=== PATIENT | male | born 1935 | race Caucasian/White ===

== ENCOUNTER → 2017-05-23 | Outpatient (CLI) | payer MEDICARE, OTHER ==
[~2017-05-23] MED LIST: ALLO100T PO; ALLP100T PO; ASP81CT PO; ASPI-983 PO; CLOP75TA28 PO; CLOP75TA69 PO; CLPD75T PO; FINA5TAB6 PO; GABA-488 PO; GABA300C PO; GABA600T2 PO; GLIM2TAB PO; GLIM4TAB PO; IRBE150T26 PO; LOVA20TA63 PO; LOVA40TA2 PO; METO50TA15 PO; METO50TA7 PO; MUPI15CR TP; NAPR220T76 PO; PANT40SU PO; TAMS0.4C2 PO; TELM80TA3 PO; TR1C15 TP
== END ==
LOC: WOUNDCARE 11:11
PROVIDERS: ATTEND Internal Medicine
DX: E11.621 Type 2 diabetes mellitus with foot ulcer (principal); L97.512 Non-pressure chronic ulcer of other part of right foot with fat layer exposed; I70.235 Atherosclerosis of native arteries of right leg with ulceration of other part of foot
CPT/HCPCS: 99213

== ENCOUNTER → 2017-05-23 | Outpatient (CLI) | payer MEDICARE, OTHER ==
[2017-05-23 12:52] LABS: BASOPHILS # (AUTO) 0.1 10^3/uL (0.0-0.1); BASOPHILS % (AUTO) 1 % (0-10); EOSINOPHILS # (AUTO) 0.3 10^3/uL (0.0-0.3); EOSINOPHILS % (AUTO) 3 % (0-10); HEMATOCRIT 37 % (40-54); HEMOGLOBIN 12.4 G/DL (13.3-17.7); LYMPHOCYTES # (AUTO) 1.6 X 10^3 (1.0-4.0); LYMPHOCYTES % (AUTO) 18 % (12-44); MEAN CORPUSCULAR HEMOGLOBIN 31 PG (25-34); MEAN CORPUSCULAR HGB CONC 33 G/DL (32-36); MEAN CORPUSCULAR VOLUME 93 FL (80-99); MEAN PLATELET VOLUME 10.2 FL (7.4-10.4); MONOCYTES # (AUTO) 0.7 X 10^3 (0.0-1.0); MONOCYTES % (AUTO) 7 % (0-12); NEUTROPHILS # (AUTO) 6.3 X 10^3 (1.8-7.8); NEUTROPHILS % (AUTO) 71 % (42-75); PLATELET COUNT 204 10^3/uL (130-400); RED BLOOD COUNT 3.98 10^6/uL (4.35-5.85); RED CELL DISTRIBUTION WIDTH 14.5 % (10.0-14.5); WHITE BLOOD COUNT 8.9 10^3/uL (4.3-11.0)
--- NOTE | 2017-05-23 13:12 | Diagnostic Imaging Report ---
INDICATION: Great toe pain, status post injury approximately 6 months ago. TIME OF EXAM: 1:16 PM Three views of the right foot were obtained. FINDINGS: There is generalized demineralization. There are degenerative changes at the first MTP joint with joint space narrowing and spurring. The metatarsals appear to be intact. No fractures are seen. The phalanges appear intact. The midfoot and hindfoot are unremarkable. There is a lateral plate and screws transfixing the distal fibula. A suture anchor transfixes the medial malleolus. IMPRESSION: Chronic changes. No acute bony abnormality is detected. Dictated by: Dictated on workstation # [id number]
[2017-05-23 13:14] LABS: ERYTHROCYTE SEDIMENTATION RATE 36 MM/HR (0-30)
== END ==
LOC: LAB 12:36
PROVIDERS: ATTEND Internal Medicine
DX: E11.621 Type 2 diabetes mellitus with foot ulcer (principal); L97.512 Non-pressure chronic ulcer of other part of right foot with fat layer exposed; I70.235 Atherosclerosis of native arteries of right leg with ulceration of other part of foot
CPT/HCPCS: 36415; 73630; 85025; 85652

== ENCOUNTER → 2017-05-30 | Outpatient (CLI) | payer MEDICARE, OTHER | LOC: WOUNDCARE 10:50 | PROVIDERS: ATTEND Internal Medicine | DX: E11.621 Type 2 diabetes mellitus with foot ulcer (principal); L97.512 Non-pressure chronic ulcer of other part of right foot with fat layer exposed; I70.235 Atherosclerosis of native arteries of right leg with ulceration of other part of foot | CPT/HCPCS: 99212 ==

== ENCOUNTER 2017-06-12 11:30 | Emergency (ER) | payer MEDICARE, OTHER ==
[~2017-06-12] VITALS: Ht 170.2 cm; Wt 99.8 kg
--- OUTSIDE RECORDS SUMMARY | 2017-06-12 11:39 | XMS REPORT | Continuity of Care Document ---
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 Document Registration [id number] 05/19/2010 05:45:00 Document Registration [id number] 03/16/2010 11:02:00 Document Registration [id number] 11/25/2009 08:46:00 Document Registration [id number] 09/14/2009 09:48:00 Document Registration [id number] 09/06/2009 19:11:00 Document Registration [id number] 08/09/2009 08:19:00 Document Registration [id number] 08/08/2009 08:47:00 Document Registration [id number] 08/04/2009 07:50:00 Document Registration [id number] 08/03/2009 12:48:00 Document Registration [id number] 11/24/2014 12:17:00 ACT Document Registration
[2017-06-12 12:39] LABS: BILIRUBIN,URINE NEGATIVE (NEGATIVE); CLARITY,URINE SLIGHTLY CLOUDY; COLOR,URINE YELLOW; GLUCOSE, URINE (UA) NEGATIVE (NEGATIVE); KETONES,URINE NEGATIVE (NEGATIVE); LEUKOCYTE ESTERASE ,URINE 2+ (NEGATIVE); NITRITE,URINE NEGATIVE (NEGATIVE); PH,URINE 5 (5-9); PROTEIN,URINE NEGATIVE (NEGATIVE); UROBILINOGEN,URINE NORMAL (NORMAL)
[2017-06-12 12:56] LABS: BACTERIA,URINE TRACE /HPF
[2017-06-12 13:25] LABS: BASOPHILS # (AUTO) 0.1 10^3/uL (0.0-0.1); BASOPHILS % (AUTO) 1 % (0-10); EOSINOPHILS # (AUTO) 0.3 10^3/uL (0.0-0.3); EOSINOPHILS % (AUTO) 5 % (0-10); HEMATOCRIT 37 % (40-54); LYMPHOCYTES # (AUTO) 1.9 X 10^3 (1.0-4.0); LYMPHOCYTES % (AUTO) 26 % (12-44); MEAN CORPUSCULAR HEMOGLOBIN 31 PG (25-34); MEAN CORPUSCULAR HGB CONC 32 G/DL (32-36); MEAN CORPUSCULAR VOLUME 95 FL (80-99); MEAN PLATELET VOLUME 10.9 FL (7.4-10.4); MONOCYTES # (AUTO) 0.6 X 10^3 (0.0-1.0); MONOCYTES % (AUTO) 9 % (0-12); NEUTROPHILS # (AUTO) 4.3 X 10^3 (1.8-7.8); NEUTROPHILS % (AUTO) 60 % (42-75); PLATELET COUNT 170 10^3/uL (130-400); RED CELL DISTRIBUTION WIDTH 14.6 % (10.0-14.5); WHITE BLOOD COUNT 7.2 10^3/uL (4.3-11.0)
--- NOTE | 2017-06-12 13:31 | Diagnostic Imaging Report ---
INDICATION: Muscle spasms in neck since earlier in the day. TECHNIQUE: Single view chest at 1:05 PM. CORRELATION STUDY: 05/19/2010 FINDINGS: Heart size enlarged. Mediastinum prominent. Vascularity overall within normal limits. Asymmetric elevation of the right diaphragm, some right lung volume loss. No infiltrate. There is questionable increased density in the left hilar region. IMPRESSION: 1. Cardiac enlargement without evidence for overt failure. 2. Increased density in the left hilum. While this may be summation shadows, would recommend short-term followup two-view chest imaging when the patient is clinically able. Dictated by: Dictated on workstation # [id number]
[2017-06-12 13:50] LABS: ALBUMIN 3.6 GM/DL (3.2-4.5); CALCIUM 8.8 MG/DL (8.5-10.1); CREATININE SERUM 1.42 MG/DL (0.60-1.30); POTASSIUM 4.5 MMOL/L (3.6-5.0); TOTAL PROTEIN 6.4 GM/DL (6.4-8.2)
[2017-06-12] MEDS ORDERED: NS IV 1000 ML 1,000 ML IV SCH (14:31)
--- NOTE | 2017-06-12 15:04 | ED General ---
General Chief Complaint: General Problems/Pain Stated Complaint: JERKY FEELING IN NECK CANNOT HOLD OBJECT Nursing Triage Note: pt presents to ed with complaints of "jerkiness, twitching" starting later this morning. Nursing Sepsis Screen: No Definite Risk Source of Information: Patient, Family Exam Limitations: No Limitations History of Present Illness Date Seen by Provider: Jun 12, 2017 Time Seen by Provider: 11:56 Initial Comments This 82-year-old gentleman presents to the emergency room with complaints of shaking and jerking of the head and neck and to a lesser degree the right arm. Symptoms are most prominent today but he has had this same type of jerking when laying down at night for up to one year. Patient is concerned because he had a chiropractic treatment about 2 weeks ago in which his neck was manipulated. He wonders if something may have been done during that treatment that resulted in adverse outcome. He has felt a little chilled recently but denies any fever, headache, nausea, vomiting, or urinary changes. He denies any new focal neurologic weakness or paresthesias. 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 He has chronic recurrent episodes of diarrhea. His primary care providers Dr. Hinojosa and his family educator is Dr. Sellers. Patient is ambulatory but normally requires assistance. Allergies and Home Medications Allergies Coded Allergies: metformin (Unverified Adverse Reaction, Mild, 05/24/12) Home Medications Allopurinol 100 Mg Tablet, 100 MG PO BID, (Reported) Aspirin 81 Mg Tablet., 81 MG PO HS, (Reported) Cephalexin 500 Mg Capsule, 500 MG PO QID Prescribed by: SOLO LEDESMA on 06/12/17 1630 Clopidogrel Bisulfate 75 Mg Tablet, 75 MG PO DAILY Prescribed by: DEEJAY SELLERS on 01/01/17 1351 Finasteride 5 Mg Tablet, 5 MG PO DAILY, (Reported) Gabapentin 600 Mg Tablet, 600 MG PO 0700,1400, (Reported) Gabapentin 300 Mg Capsule, 900 MG PO HS, (Reported) TAKES 3 (300 MG) CAPSULES Glimepiride 4 Mg Tablet, 4 MG PO BID, (Reported) Irbesartan 150 Mg Tablet, 150 MG PO HS, (Reported) Lovastatin 40 Mg Tablet, 40 MG PO HS, (Reported) Metoprolol Tartrate 50 Mg Tablet, 50 MG PO BID, (Reported) Pantoprazole Sodium 40 Mg Granpkt.dr, 40 MG PO DAILY, (Reported) Tamsulosin HCl 0.4 Mg Cap.er.24h, 0.4 MG PO DAILY, (Reported) Triamcinolone Acet 15 Gm Cr, 15 GM TP TID, (Reported) Patient Home Medication List Home Medication List Reviewed: Yes Constitutional: see HPI EENTM: no symptoms reported Respiratory: no symptoms reported Gastrointestinal: no symptoms reported Genitourinary: no symptoms reported Musculoskeletal: no symptoms reported Skin: no symptoms reported Psychiatric/Neurological: See HPI Hematologic/Lymphatic: No Symptoms Reported Past Zrvujde-Jgfotu-Rrrubn Hx Patient Social History Alcohol Use: Denies Use Recreational Drug Use: No Smoking Status: Former Smoker Former Smoker, Quit: Feb 11, 1992 Recent Foreign Travel: No Contact w/Someone Who Travel: No Recent Infectious Disease Expo: No Recent Hopitalizations: Yes Physical Abuse: No Sexual Abuse: No Mistreated: No Fear: No Immunizations Up To Date Date of Pneumonia Vaccine: Dec 18, 2013 Date of Influenza Vaccine: Dec 18, 2016 Surgeries History of Surgeries: Yes (R foot screw, ) Surgeries: Appendectomy, Coronary Stent, Gallbladder, Orthopedic, Tonsillectomy Respiratory History of Respiratory Disorde: No Respiratory Disorders: Sleep Apnea Cardiovascular History of Cardiac Disorders: Yes Cardiac Disorders: Coronary Artery Disease, High Cholesterol, Hypertension Neurological History of Neurological Disord: Yes Neurological Disorders: Neuropathy Reproductive System Hx Reproductive Disorders: No Genitourinary History of Genitourinary Disor: Yes (urinary retention) Genitourinary Disorders: Kidney Stones Gastrointestinal History of Gastrointestinal Di: Yes Gastrointestinal Disorders: Gastroesophageal Reflux Musculoskeletal History of Musculoskeletal Dis: Yes (SCREWS PLACED IN RIGHT ANKLE > 15 YRS AGO) Musculoskeletal Disorders: Arthritis, Foot Drop, Gout Endocrine History of Endocrine Disorders: Yes Endocrine Disorders: Diabetes, Non-Insulin dep HEENT HEENT Disorders: Cataract Loss of Vision: Denies Hearing Impairment: Hard of Hearing Cancer History of Cancer: No Psychosocial History of Psychiatric Problem: No Suicide Risk Score: 0 Integumentary History of Skin or Integumenta: No Blood Transfusions History of Blood Disorders: No Physical Exam Vital Signs Vital Signs - First Documented 06/12/17 11:50 Temp 96.5 Pulse 55 Resp 18 B/P (MAP) 138/70 (92) Pulse Ox 97 Capillary Refill : Less Than 3 Seconds General Appearance: No Apparent Distress, WD/WN HEENT: PERRL/EOMI, Normal ENT Inspection Neck: Normal Inspection, Non Tender, Supple Respiratory: Lungs Clear, Normal Breath Sounds, No Accessory Muscle Use, No Respiratory Distress Cardiovascular: Regular Rate, Rhythm, No Edema, No Murmur, Normal Peripheral Pulses Gastrointestinal: Normal Bowel Sounds, Non Tender, Soft Extremity: Normal Inspection, No Pedal Edema, Other (AFO braces present bilaterally) Neurologic/Psychiatric: Alert, Oriented x3, Normal Mood/Affect, direct support worker II-XII Norm as Tested, Other (weakness of the lower extremities bilaterally stated as chronic. Finger to nose test normal bilaterally. Occasional dystonic jerking of the head, neck, and right upper extremity.) Skin: Normal Color, Warm/Dry Progress/Results/Core Measures Suspected Sepsis Recent Fever Within 48 Hours: No Infection Criteria Present: None New/Unexplained Altered Menta: No Sepsis Screen: No Definite Risk Sepsis Diagnosis: SIRS Temperature:96.5 Pulse: 55 Respiratory Rate: 18 Laboratory Tests 06/12/17 13:16: White Blood Count 7.2 Blood Pressure 138 /70 Mean: 92 Laboratory Tests 06/12/17 13:16: Creatinine 1.42H, Platelet Count 170, Total Bilirubin 1.0 Results/Orders Lab Results Laboratory Tests Test 06/12/17 12:30 06/12/17 13:16 Range/Units Urine Color YELLOW Urine Clarity SLIGHTLY CLOUDY Urine pH 5 5-9 Urine Specific [place] 1.015 L 1.016-1.022 Urine Protein NEGATIVE NEGATIVE Urine Glucose (UA) NEGATIVE NEGATIVE Urine Ketones NEGATIVE NEGATIVE Urine Nitrite NEGATIVE NEGATIVE Urine Bilirubin NEGATIVE NEGATIVE Urine Urobilinogen NORMAL NORMAL MG/DL Urine Leukocyte Esterase 2+ H NEGATIVE Urine RBC (Auto) NEGATIVE NEGATIVE Urine RBC NONE /HPF Urine WBC 10-25 H /HPF Urine Squamous Epithelial Cells 2-5 /HPF Urine Crystals NONE /LPF Urine Bacteria TRACE /HPF Urine Casts NONE /LPF Urine Mucus SMALL H /LPF Urine Culture Indicated YES White Blood Count 7.2 4.3-11.0 10^3/uL Red Blood Count 3.90 L 4.35-5.85 10^6/uL Hemoglobin 12.0 L 13.3-17.7 G/DL Hematocrit 37 L 40-54 % Mean Corpuscular Volume 95 80-99 FL Mean Corpuscular Hemoglobin 31 25-34 PG Mean Corpuscular Hemoglobin Concent 32 32-36 G/DL Red Cell Distribution Width 14.6 H 10.0-14.5 % Platelet Count 170 130-400 10^3/uL Mean Platelet Volume 10.9 H 7.4-10.4 FL Neutrophils (%) (Auto) 60 42-75 % Lymphocytes (%) (Auto) 26 12-44 % Monocytes (%) (Auto) 9 0-12 % Eosinophils (%) (Auto) 5 0-10 % Basophils (%) (Auto) 1 0-10 % Neutrophils # (Auto) 4.3 1.8-7.8 X 10^3 Lymphocytes # (Auto) 1.9 1.0-4.0 X 10^3 Monocytes # (Auto) 0.6 0.0-1.0 X 10^3 Eosinophils # (Auto) 0.3 0.0-0.3 10^3/uL Basophils # (Auto) 0.1 0.0-0.1 10^3/uL Sodium Level 137 135-145 MMOL/L Potassium Level 4.5 3.6-5.0 MMOL/L Chloride Level 108 H 98-107 MMOL/L Carbon Dioxide Level 23 21-32 MMOL/L Anion Gap 6 5-14 MMOL/L Blood Urea Nitrogen 37 H 7-18 MG/DL Creatinine 1.42 H 0.60-1.30 MG/DL Estimat Glomerular Filtration Rate 47 BUN/Creatinine Ratio 26 Glucose Level 132 H 70-105 MG/DL Calcium Level 8.8 8.5-10.1 MG/DL Magnesium Level 2.0 1.8-2.4 MG/DL Total Bilirubin 1.0 0.1-1.0 MG/DL Aspartate Amino Transf (AST/SGOT) 19 5-34 U/L Alanine Aminotransferase (ALT/SGPT) 24 0-55 U/L Alkaline Phosphatase 79 40-136 U/L C-Reactive Protein High Sensitivity 0.15 0.00-0.50 MG/DL Total Protein 6.4 6.4-8.2 GM/DL Albumin 3.6 3.2-4.5 GM/DL My Orders Orders - SOLO GEORGE MD Cbc With Automated Diff (06/12/17 12:28) Comprehensive Metabolic Panel (06/12/17 12:28) Hs C Reactive Protein (06/12/17 12:28) Magnesium (06/12/17 12:28) Ua Culture If Indicated (06/12/17 12:28) Saline Lock/Iv-Start (06/12/17 12:28) Chest 1 View, Ap/Pa Only (06/12/17 12:28) Urine Culture (06/12/17 12:30) Ns Iv 1000 Ml (Sodium Chloride 0.9%) (06/12/17 14:31) Ct Head/Cervical Spine Wo (06/12/17 14:38) Vital Signs/I&O Vital Sign - Last 12Hours 06/12/17 11:50 Temp 96.5 Pulse 55 Resp 18 B/P (MAP) 138/70 (92) Pulse Ox 97 Capillary Refill : Less Than 3 Seconds Blood Pressure Mean: 92 Progress Note #1: Time: 15:04 Progress Note Initial workup revealed mild renal insufficiency with elevated BUN and creatinine. A liter of IV normal saline was administered. He also has suggestion of urinary tract infection on UA. Rocephin was administered. I discussed options with patient and family which included conservative treatment with hydration and antibiotic therapy for urinary tract infection versus a more aggressive workup with imaging of the head and C-spine. Patient and family are rather concerned that some adverse outcome may have been experienced after chiropractic treatment and requests imaging be done now. Progress Note #2: Progress Note CT of the head and cervical spine were unremarkable for acute problems or problems that may explain his neurologic symptoms. Patient was hydrated and received Rocephin. Symptoms were much improved by the time of dismissal. The possible summation artifact on the chest x-ray was discussed with the patient. He was advised to discuss this further with his primary care provider and possibly obtain repeat imaging at a later date. Diagnostic Imaging Diagonstic Imaging: CT Plain Films/CT/US/NM/MRI: c-spine, head Comments CT head and C-spine viewed by me and report reviewed. See report below: NAME: SANDRO ROBERTS MED REC#: [id number] PT STATUS: REG ER : 1935 PHYSICIAN: SOLO GEORGE MD ADMIT DATE: 06/12/17/ER Signed Date of Exam: 06/12/17 CT HEAD/CERVICAL SPINE WO INDICATION: Tremors and twitching. CT brain findings: Noncontrast brain CT is performed. There are diffuse atrophic changes. There are no extra-axial fluid collections. No intracranial hemorrhage. No intracranial mass or mass effect. No midline shift. The ventricles are normal in size and position. There are patchy low-density changes in the deep white matter compatible with chronic ischemic change. Calvarial windows appear normal. CT cervical spine findings: CT cervical spine is obtained with axial slices without contrast and sagittal and coronal reconstructions. There is congenital nonunion of the posterior arch of C1. There is no acute fracture or subluxation. There is disc space narrowing at C2-C3, C3-C4, and C4-C5 as well as C5-C6 and C6-C7. There are bulky anterior osteophytes at C4-C5 and C5-C6. There is diffuse facet joint degenerative change. There is mild right-sided neuroforaminal narrowing at C2-C3. There is mild left-sided neuroforaminal narrowing at C3-C4. There is mild bilateral neuroforaminal narrowing at C4-C5 secondary to osteophyte formation. There is also mild bilateral neuroforaminal narrowing at C5-C6. There is neuroforaminal narrowing at C6-C7 on the left side due to osteophyte formation. IMPRESSION: CT head demonstrates atrophic changes and chronic ischemic changes in deep white matter. There is no acute intracranial abnormality. CT cervical demonstrates multilevel degenerative findings as described above. There is no acute fracture or subluxation. Dictated by: Dictated on workstation # [id number] Dict: 06/12/17 1550 Trans: 06/12/17 1559 Interpreted by: HUNG BAKER MD Electronically signed by: HUNG BAKER MD 06/12/17 1559 Diagonstic Imaging: Xray Plain Films/CT/US/NM/MRI: chest Comments Chest x-ray viewed by me and report reviewed. See report below: NAME: SANDRO ROBERTS MED REC#: [id number] PT STATUS: REG ER : 1935 PHYSICIAN: SOLO GEORGE MD ADMIT DATE: 06/12/17/ER Signed Date of Exam:06/12/17 CHEST 1 VIEW, AP/PA ONLY INDICATION: Muscle spasms in neck since earlier in the day. TECHNIQUE: Single view chest at 1:05 PM. CORRELATION STUDY: 05/19/2010 FINDINGS: Heart size enlarged. Mediastinum prominent. Vascularity overall within normal limits. Asymmetric elevation of the right diaphragm, some right lung volume loss. No infiltrate. There is questionable increased density in the left hilar region. IMPRESSION: 1. Cardiac enlargement without evidence for overt failure. 2. Increased density in the left hilum. While this may be summation shadows, would recommend short-term followup two-view chest imaging when the patient is clinically able. Dictated by: Dictated on workstation # [id number] Dict: 06/12/17 1318 Trans: 06/12/17 1546 IDALIA [id number] Interpreted by: VIDAL SERRANO DO Electronically signed by: VIDAL SERRANO DO 06/12/17 1546 Departure Impression Impression: Primary Impression: Urinary tract infection Qualified Codes: N39.0 - Urinary tract infection, site not specified Additional Impression: Tremor Disposition: 01 HOME, SELF-CARE Condition: Improved Departure-Patient Inst. Decision time for Depature: 16:20 Referrals: GOLDY HINOJOSA DO (PCP/Family) Primary Care Physician Patient Instructions: Urinary Tract Infection, Adult (DC) Add. Discharge Instructions: Drink plenty of clear liquids. Complete your antibiotics as prescribed. Follow -up with your primary care provider as soon as possible. Review urine culture results with either your primary care office or the ER on Saturday afternoon to ensure the antibiotic prescribed will cover the bacteria that grows in culture. Return to care if symptoms are worsening instead of improving. All discharge instructions reviewed with patient and/or family. Voiced understanding. Scripts Cephalexin (Keflex) 500 Mg Capsule 500 MG PO QID, #28 CAP Prov: SOLO GEORGE MD 06/12/17 Copy Copies To 1: GOLDY HINOJOSA JOSHUA T MD Jun 12, 2017 15:04
--- NOTE | 2017-06-12 16:00 | Diagnostic Imaging Report ---
INDICATION: Tremors and twitching. CT brain findings: Noncontrast brain CT is performed. There are diffuse atrophic changes. There are no extra-axial fluid collections. No intracranial hemorrhage. No intracranial mass or mass effect. No midline shift. The ventricles are normal in size and position. There are patchy low-density changes in the deep white matter compatible with chronic ischemic change. Calvarial windows appear normal. CT cervical spine findings: CT cervical spine is obtained with axial slices without contrast and sagittal and coronal reconstructions. There is congenital nonunion of the posterior arch of C1. There is no acute fracture or subluxation. There is disc space narrowing at C2-C3, C3-C4, and C4-C5 as well as C5-C6 and C6-C7. There are bulky anterior osteophytes at C4-C5 and C5-C6. There is diffuse facet joint degenerative change. There is mild right-sided neuroforaminal narrowing at C2-C3. There is mild left-sided neuroforaminal narrowing at C3-C4. There is mild bilateral neuroforaminal narrowing at C4-C5 secondary to osteophyte formation. There is also mild bilateral neuroforaminal narrowing at C5-C6. There is neuroforaminal narrowing at C6-C7 on the left side due to osteophyte formation. IMPRESSION: CT head demonstrates atrophic changes and chronic ischemic changes in deep white matter. There is no acute intracranial abnormality. CT cervical demonstrates multilevel degenerative findings as described above. There is no acute fracture or subluxation. Dictated by: Dictated on workstation # [id number]
[2017-06-12] MEDS ORDERED: CEPH-507 PO (16:30)
[2017-06-12 16:44] VITALS: BP 146/77
== END 2017-06-12 16:44 | disposition home or self-care (01) ==
LOC: EDUNIT# 11:30 → ER 11:32
DX: N39.0 Urinary tract infection, site not specified (principal); R25.1 Tremor, unspecified; E11.40 Type 2 diabetes mellitus with diabetic neuropathy, unspecified; M06.9 Rheumatoid arthritis, unspecified; K21.9 Gastro-esophageal reflux disease without esophagitis; I25.10 Atherosclerotic heart disease of native coronary artery without angina pectoris; E78.00 Pure hypercholesterolemia, unspecified; E87.8 Other disorders of electrolyte and fluid balance, not elsewhere classified; I10 Essential (primary) hypertension; Z86.73 Personal history of transient ischemic attack (TIA), and cerebral infarction without residual deficits; Z90.49 Acquired absence of other specified parts of digestive tract; Z95.1 Presence of aortocoronary bypass graft; Z90.89 Acquired absence of other organs; Z87.442 Personal history of urinary calculi; Z87.891 Personal history of nicotine dependence; Z79.82 Long term (current) use of aspirin; Z79.84 Long term (current) use of oral hypoglycemic drugs; Z88.8 Allergy status to other drugs, medicaments and biological substances
CPT/HCPCS: 36415; 70450; 71045; 72125; 80053; 81000; 83735; 85025; 86141; 87088; 96360; 96361

== ENCOUNTER → 2017-06-13 | Outpatient (CLI) | payer MEDICARE, OTHER ==
[~2017-06-13] MED LIST changes: +CEPH-507 PO
== END ==
LOC: WOUNDCARE 10:10
PROVIDERS: ATTEND Nurse Practitioner
DX: E11.621 Type 2 diabetes mellitus with foot ulcer (principal); L97.512 Non-pressure chronic ulcer of other part of right foot with fat layer exposed; I70.235 Atherosclerosis of native arteries of right leg with ulceration of other part of foot
CPT/HCPCS: 99213

== ENCOUNTER → 2017-06-20 | Outpatient (CLI) | payer MEDICARE, OTHER ==
--- NOTE | 2017-06-20 12:57 | Diagnostic Imaging Report ---
INDICATION: Followup. TIME OF EXAM: 11:36 a.m. Correlation is made with recent chest x-ray from 06/12/2017. The heart size is stable. There is a density in the left perihilar region, similar to prior. Right hemidiaphragm is elevated. There is a zone of linear atelectasis in the right lower lobe. No effusion is seen. There is no pneumothorax. IMPRESSION: 1. Right lower lobe subsegmental atelectasis. 2. Continued density left perihilar region. Continued short followup or performance of a CT chest is recommended for further evaluation. Dictated by: Dictated on workstation # [id number]
== END ==
LOC: RAD 10:21
PROVIDERS: ATTEND Family Medicine
DX: J98.11 Atelectasis (principal); R91.8 Other nonspecific abnormal finding of lung field
CPT/HCPCS: 71046

== ENCOUNTER → 2017-06-20 | Outpatient (CLI) | payer MEDICARE, OTHER | LOC: WOUNDCARE 10:25 | PROVIDERS: ATTEND Internal Medicine | DX: E11.621 Type 2 diabetes mellitus with foot ulcer (principal); L97.512 Non-pressure chronic ulcer of other part of right foot with fat layer exposed; I70.235 Atherosclerosis of native arteries of right leg with ulceration of other part of foot | CPT/HCPCS: 11042 ==

== ENCOUNTER → 2017-06-27 | Outpatient (CLI) | payer MEDICARE, OTHER ==
[~2017-06-27] MED LIST changes: +CATHETER FLUSH 10 ML SYR IV PRN; +IOHEXOL 350 MG/ML 100 ML (OMNIPAQUE 350) VIAL IV ONE; +NS 250 ML (IVPB) BAG IV ONE
--- NOTE | 2017-06-27 15:38 | Diagnostic Imaging Report ---
PROCEDURE: CT chest with contrast only. TECHNIQUE: Multiple contiguous axial images were obtained through the chest after administration of intravenous contrast. INDICATION: Abnormal density in left perihilar region. There are no prior CT chest examinations available for comparison. FINDINGS: The recent plain film examination of the chest performed on 06/12/17 noted increased density about the left hilum. This finding did seem to persist on the subsequent chest exam of 06/20/17. On this exam, there is no discrete mass in the left perihilar region to suggest a neoplastic process. I suspect that the density seen on the plain film exams was related to superimposition of the bronchovascular markings in this region. The left lung is generally clear although there are mild chronic changes involving the left lung base. The right lung is also fairly well aerated. The heart is enlarged and there are coronary artery calcifications evident. The ascending aorta is mildly dilated measuring 4.0 x 4.1 cm. There is no sign of a dissection of the aorta. There is no defect within the pulmonary arteries to indicate a pulmonary embolus. There is no mediastinal or hilar adenopathy. There does appear to be a small subcentimeter area of low density within the left lobe of the thyroid. This is most likely benign but a thyroid ultrasound exam would be recommended for further study. The bone windows show no sign of a fracture or of a destructive lesion. There is a fairly uniform area of increased density throughout the manubrium. This has the appearance of kyphoplasty cement. Correlation with the patient's history would be recommended. The sections through the upper abdomen fail to show any sign of an acute abnormality. There do appear to be cysts associated with both kidneys and in the right lobe of the liver. The cysts associated with the kidneys are not visualized in their entirety. IMPRESSION: 1. There is no abnormal parenchymal density in the left perihilar region to suggest a neoplastic mass. The density seen on the plain film exams is most likely due to superimposition of bronchovascular markings. 2. There is no acute cardiopulmonary abnormality noted. 3. There is cardiomegaly and coronary artery disease. 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 4. The subcentimeter area of low density within the left lobe of the thyroid is most likely benign. Ultrasound would be recommended for further study, however. 5. The increased density throughout the manubrium may be related to prior treatment. Correlation with the patient's history would be recommended. 6. There are cysts involving the liver and the kidneys. If further study is desired, ultrasound would be recommended. Dictated by: Dictated on workstation # [id number]
== END ==
LOC: RAD 10:22
PROVIDERS: ATTEND Family Medicine
DX: R91.8 Other nonspecific abnormal finding of lung field (principal); I51.7 Cardiomegaly; I25.10 Atherosclerotic heart disease of native coronary artery without angina pectoris; I71.2 Thoracic aortic aneurysm, without rupture; K76.89 Other specified diseases of liver; N28.1 Cyst of kidney, acquired
CPT/HCPCS: 71260

== ENCOUNTER → 2017-06-27 | Outpatient (CLI) | payer MEDICARE, OTHER ==
[~2017-06-27] MED LIST changes: -CATHETER FLUSH 10 ML SYR IV PRN; -IOHEXOL 350 MG/ML 100 ML (OMNIPAQUE 350) VIAL IV ONE; -NS 250 ML (IVPB) BAG IV ONE
== END ==
LOC: WOUNDCARE 10:25
PROVIDERS: ATTEND Internal Medicine
DX: E11.621 Type 2 diabetes mellitus with foot ulcer (principal); L97.512 Non-pressure chronic ulcer of other part of right foot with fat layer exposed; I70.235 Atherosclerosis of native arteries of right leg with ulceration of other part of foot
CPT/HCPCS: 11042

== ENCOUNTER → 2017-07-01 | Outpatient (CLI) | payer MEDICARE, OTHER ==
--- NOTE | 2017-07-01 17:30 | Diagnostic Imaging Report ---
PROCEDURE: US Thyroid. TECHNIQUE: Multiple real-time grayscale images were obtained of the thyroid in various projections. INDICATION: A thyroid nodule demonstrated at chest CT. No priors for direct comparison. FINDINGS: Right thyroid lobe measured 5.0 x 2.3 x 2.6 cm. It contains small hypoechoic to anechoic cystic foci, the largest of which measured 5 mm at its mid pole. The left thyroid lobe measured 4.4 x 2.0 x 1.7 cm. It contains a well-defined isoechoic nodule measuring 8 mm. This appears solid. IMPRESSION: Solid subcentimeter 8 mm left lobe nodule appeared well defined without obvious calcification. Right lobe contained tiny cysts, the largest of which was 5 mm, benign. Dictated by: Dictated on workstation # [id number]
== END ==
LOC: RAD 15:12
PROVIDERS: ATTEND Family Medicine
DX: E04.2 Nontoxic multinodular goiter (principal)
CPT/HCPCS: 76536

== ENCOUNTER → 2017-07-04 | Outpatient (CLI) | payer MEDICARE, OTHER | LOC: WOUNDCARE 10:27 | PROVIDERS: ATTEND Internal Medicine | DX: E11.621 Type 2 diabetes mellitus with foot ulcer (principal); L97.512 Non-pressure chronic ulcer of other part of right foot with fat layer exposed; I70.235 Atherosclerosis of native arteries of right leg with ulceration of other part of foot | CPT/HCPCS: 97597 ==

== ENCOUNTER 2017-07-09 01:47 | Inpatient (IN) | payer MEDICARE, OTHER ==
[~2017-07-09] VITALS: Ht 170.2 cm; Wt 97.5 kg
--- NOTE | 2017-07-09 02:03 | ED Neurological Problem ---
General Chief Complaint: General Problems/Pain Stated Complaint: MERI Source: patient, EMS, residential records, old records Exam Limitations: no limitations History of Present Illness Date Seen by Provider: Jul 09, 2017 Time Seen by Provider: 01:48 Initial Comments The patient presents to the ER by EMS with a chief complaint of takes causing him to shoulder lasting for a run of 2 or 3 at a time every 5-10 seconds. He is also noted be bradycardic on the monitor. He is having no pain anywhere, shortness of breath although he does have dysuria. He says he was seen for the same tick about a week or 2 ago in the ER and was seen to make it better was the IV fluids. He says he feels dehydrated and is having dysuria. No fevers chills nausea vomiting cough or shortness of breath. He is known to Dr. Sellers has a history of stents and is on Plavix as well as blood pressure medicines. He says he recently started a new pill for diabetes that starts with an aphthous. His residential records indicate he is on glipizide and Januvia. He is on metoprolol and losartan. He denies having an implanted pacemaker or AICD. He does not have a seizure history. Allergies and Home Medications Allergies Coded Allergies: metformin (Unverified Adverse Reaction, Mild, 05/24/12) Home Medications Allopurinol 100 Mg Tablet, 100 MG PO BID, (Reported) Aspirin 81 Mg Tablet.dr, 81 MG PO HS, (Reported) Cephalexin 500 Mg Capsule, 500 MG PO QID Prescribed by: SOLO LEDESMA on 06/12/17 1630 Clopidogrel Bisulfate 75 Mg Tablet, 75 MG PO DAILY Prescribed by: DEEJAY SELLERS on 01/01/17 1351 Finasteride 5 Mg Tablet, 5 MG PO DAILY, (Reported) Gabapentin 600 Mg Tablet, 600 MG PO 0700,1400, (Reported) Gabapentin 300 Mg Capsule, 900 MG PO HS, (Reported) TAKES 3 (300 MG) CAPSULES Glimepiride 4 Mg Tablet, 4 MG PO BID, (Reported) Irbesartan 150 Mg Tablet, 150 MG PO HS, (Reported) Lovastatin 40 Mg Tablet, 40 MG PO HS, (Reported) Meclizine HCl 25 Mg Tablet, 25 MG PO PRN, (Reported) Metoprolol Tartrate 50 Mg Tablet, 50 MG PO BID, (Reported) Pantoprazole Sodium 40 Mg Granpkt.dr, 40 MG PO DAILY, (Reported) Tamsulosin HCl 0.4 Mg Cap.er.24h, 0.4 MG PO DAILY, (Reported) Triamcinolone Acet 15 Gm Cr, 15 GM TP TID, (Reported) Patient Home Medication List Home Medication List Reviewed: Yes Review of Systems Constitutional: No chills, No diaphoresis, No fever, No malaise Eyes: Denies Blindness, Denies Blurred Vision Ears, Nose, Mouth, Throat: denies ear pain, denies ear discharge Respiratory: No cough, No dyspnea on exertion Cardiovascular: No chest pain, No edema; Hx of Intervention; No palpitations, No syncope; vascular heart diseas Gastrointestinal: No abdominal pain, No constipation, No diarrhea Genitourinary: No discharge; dysuria Musculoskeletal: No back pain, No joint pain Skin: No pruritus, No rash Psychiatric/Neurological: Denies Cognitive Dysfunction, Denies Headache, Denies Numbness, Denies Tingling, Denies Tonic Clonic Seizures, Denies Unable to Move Lower Ext, Denies Unable to Move Upper Ext, Denies Weakness Past Ansnuse-Uwdjlv-Fvhmoa Hx Patient Social History Former Smoker, Quit: Feb 11, 1992 Recent Foreign Travel: No Contact w/Someone Who Travel: No Recent Hopitalizations: Yes Immunizations Up To Date Date of Pneumonia Vaccine: Dec 18, 2013 Date of Influenza Vaccine: Dec 18, 2016 Past Medical History Surgeries: Yes (, r foot screw, ) Appendectomy, Coronary Stent, Gallbladder, Orthopedic, Tonsillectomy Respiratory: No Sleep Apnea Cardiac: Yes Coronary Artery Disease, High Cholesterol, Hypertension Neurological: Yes Neuropathy Reproductive Disorders: No Genitourinary: Yes (urinary retention) Kidney Stones Gastrointestinal: Yes Gastroesophageal Reflux Musculoskeletal: Yes (SCREWS PLACED IN RIGHT ANKLE > 15 YRS AGO) Arthritis, Foot Drop, Gout Endocrine: Yes Diabetes, Non-Insulin dep Cataract Loss of Vision: Denies Hearing Impairment: Hard of Hearing Cancer: No Psychosocial: No Integumentary: No Blood Disorders: No Physical Exam Vital Signs Vital Signs - First Documented 07/09/17 01:50 Temp 97.2 Pulse 51 Resp 20 B/P (MAP) 112/78 (89) Pulse Ox 94 O2 Delivery Room Air Capillary Refill : General Appearance: WD/WN, no apparent distress HEENT: PERRL/EOMI, normal ENT inspection, TMs normal, pharynx normal Neck: non-tender, full range of motion, supple, normal inspection Respiratory: chest non-tender, lungs clear, normal breath sounds, no respiratory distress, no accessory muscle use Cardiovascular: normal peripheral pulses, regular rate, rhythm, no edema Peripheral Pulses: 2+ Radial Pulses (R), 2+ Radial Pulses (L) Gastrointestinal: normal bowel sounds, non tender, soft 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 as tested, no motor/sensory deficits, alert, normal mood/affect, oriented x 3 Crainal Nerves: normal hearing, normal speech, PERRL Motor/Sensory: no motor deficit, no sensory deficit, no pronator drift Skin: normal color, warm/dry Lymphatic: no adenopathy Progress/Results/Core Measures Lab Results Laboratory Tests Test 07/09/17 02:14 07/09/17 02:53 Range/Units White Blood Count 7.5 4.3-11.0 10^3/uL Red Blood Count 3.67 L 4.35-5.85 10^6/uL Hemoglobin 11.3 L 13.3-17.7 G/DL Hematocrit 34 L 40-54 % Mean Corpuscular Volume 92 80-99 FL Mean Corpuscular Hemoglobin 31 25-34 PG Mean Corpuscular Hemoglobin Concent 33 32-36 G/DL Red Cell Distribution Width 14.4 10.0-14.5 % Platelet Count 165 130-400 10^3/uL Mean Platelet Volume 10.7 H 7.4-10.4 FL Neutrophils (%) (Auto) 68 42-75 % Lymphocytes (%) (Auto) 19 12-44 % Monocytes (%) (Auto) 9 0-12 % Eosinophils (%) (Auto) 3 0-10 % Basophils (%) (Auto) 1 0-10 % Neutrophils # (Auto) 5.1 1.8-7.8 X 10^3 Lymphocytes # (Auto) 1.4 1.0-4.0 X 10^3 Monocytes # (Auto) 0.7 0.0-1.0 X 10^3 Eosinophils # (Auto) 0.2 0.0-0.3 10^3/uL Basophils # (Auto) 0.0 0.0-0.1 10^3/uL Sodium Level 133 L 135-145 MMOL/L Potassium Level 4.8 3.6-5.0 MMOL/L Chloride Level 108 H 98-107 MMOL/L Carbon Dioxide Level 17 L 21-32 MMOL/L Anion Gap 8 5-14 MMOL/L Blood Urea Nitrogen 44 H 7-18 MG/DL Creatinine 1.83 H 0.60-1.30 MG/DL Estimat Glomerular Filtration Rate 35 BUN/Creatinine Ratio 24 Glucose Level 91 70-105 MG/DL Calcium Level 8.5 8.5-10.1 MG/DL Phosphorus Level 3.8 2.3-4.7 MG/DL Magnesium Level 1.9 1.8-2.4 MG/DL Total Bilirubin 0.6 0.1-1.0 MG/DL Aspartate Amino Transf (AST/SGOT) 14 5-34 U/L Alanine Aminotransferase (ALT/SGPT) 20 0-55 U/L Alkaline Phosphatase 78 40-136 U/L Troponin I < 0.30 <0.30 NG/ML Total Protein 6.0 L 6.4-8.2 GM/DL Albumin 3.4 3.2-4.5 GM/DL Thyroid Stimulating Hormone (TSH) 3.03 0.35-4.94 UIU/ML My Orders Orders - SHARON WEAVER Troponin I (07/09/17 01:56) Chest 1 View, Ap/Pa Only (07/09/17 01:56) Ekg Tracing (07/09/17 01:56) Monitor-Rhythm Ecg Trace Only (07/09/17 01:56) Cbc With Automated Diff (07/09/17 01:56) Comprehensive Metabolic Panel (07/09/17 01:56) Magnesium (07/09/17 01:56) Thyroid Stimulating Hormone (07/09/17 01:56) Ua Culture If Indicated (07/09/17 01:56) Phosphorus (07/09/17 01:56) Post Void Residual Assessment (07/09/17 02:31) Beavers Cath Insertion (07/09/17 02:41) Vital Signs/I&O 07/09/17 01:50 Temp 97.2 Pulse 51 Resp 20 B/P (MAP) 112/78 (89) Pulse Ox 94 O2 Delivery Room Air Progress Note #1: Time: 02:03 Progress Note Patient exhibiting a nervous tic that he says when away last time when he had some fluids. Sinus bradycardia with prolonged ME interval. Very low voltage read so difficult see if there is a P-wave the dropped QRS or not on the 2. Cardiac catheterization December [address] Sellers: 70-80% mid vessel stenosis of the left anterior descending artery. It was stented at that time. 50% mid vessel stenosis left circumflex artery and significant. Patent stents in the proximal and mid right coronary artery with proximal stent exhibiting approximately 40-50% restenosis. Mild to moderate elevation of left ventricular end-diastolic pressure. Echocardiogram 2010 Dr. Sellers: Normal left global ventricular systolic function with an EF of 65%. Mild diastolic dysfunction of the left ventricle. Pulmonary artery systolic pressure of 30. Mild to moderate aortic valve sclerosis without stenosis. Progress Note #2: Time: 03:12 Progress Note The patient was unable to produce a urine but felt he had quite a bit of urine in his bladder and he had a very palpable tender bladder above the suprapubic symphysis. Bladder scan revealed over 900 mL so a Beavers catheter was placed. Initial ECG Impression Date: Jul 09, 2017 Initial ECG Impression Time: 01:54 Initial ECG Rate: 42 Initial ECG Intervals: ME (240) Initial ECG Impression: Sinus Bradycardia, 1st Degree AV Block Initial ECG Comparisson: Changed Comment No ST segment elevation or depression. Sinus bradycardia and prolonged ME interval. Diagonstic Imaging: Xray (1v) Plain Films/CT/US/NM/MRI: chest Comments Stable right lower lobe flat plate like atelectasis or scarring still seen compared to previous x-rays 2 weeks ago. No other acute cardio pulmonary processes noted. Reviewed: Reviewed by Me Consults : Consulting Physician: DEEJAY SELLERS MD FACP FAC CCDS Consults Notes Discussed EKG and presentation. Discussed concern that because of the low voltage EKG may be that the second liter showing that his P waves or dropping a QRS complex as in a second degree AV block block versus a first-degree AV block. He has reviewed a copy of the EKG. He agrees it very possibly a type I second degree AV block and is probably of a benign cause may be related to the bladder retention. He wants an overnight observation and he'll see the patient in the morning. Hold beta blockers. Departure Communication (Admissions) Time/Spoke to Admitting Phy: 03:27 Discussed case lab EKG imaging and findings with Dr. Hinojosa. He'll see the patient the morning. He would like a consult for Dr. Keyes, urology in the a.m. Time/Spoke to Consulting Phy: 03:00 See consult note for Dr. Marshall. Nursing can call Dr. Keyes in the morning. Impression Primary Impression: Vagal nerve sensitivity Additional Impressions: Bladder retention of urine Second degree AV block, Mobitz type I Disposition: ADMITTED INPATIENT Condition: Improved Admissions Decision to Admit Reason: Admit from ER (General) Decision to Admit/Date: Jul 09, 2017 Time/Decision to Admit Time: 03:29 Departure-Patient Inst. Referrals: GOLDY HINOJOSA DO (PCP/Family) Primary Care Physician Copy Copies To 1: GOLDY HINOJOSA TITUS J Jul 09, 2017 02:03
[2017-07-09 02:19] LABS: BASOPHILS % (AUTO) 1 % (0-10); EOSINOPHILS # (AUTO) 0.2 10^3/uL (0.0-0.3); EOSINOPHILS % (AUTO) 3 % (0-10); HEMATOCRIT 34 % (40-54); HEMOGLOBIN 11.3 G/DL (13.3-17.7); LYMPHOCYTES # (AUTO) 1.4 X 10^3 (1.0-4.0); LYMPHOCYTES % (AUTO) 19 % (12-44); MEAN CORPUSCULAR HEMOGLOBIN 31 PG (25-34); MEAN CORPUSCULAR HGB CONC 33 G/DL (32-36); MEAN CORPUSCULAR VOLUME 92 FL (80-99); MEAN PLATELET VOLUME 10.7 FL (7.4-10.4); MONOCYTES # (AUTO) 0.7 X 10^3 (0.0-1.0); MONOCYTES % (AUTO) 9 % (0-12); NEUTROPHILS # (AUTO) 5.1 X 10^3 (1.8-7.8); NEUTROPHILS % (AUTO) 68 % (42-75); PLATELET COUNT 165 10^3/uL (130-400); RED BLOOD COUNT 3.67 10^6/uL (4.35-5.85); RED CELL DISTRIBUTION WIDTH 14.4 % (10.0-14.5); WHITE BLOOD COUNT 7.5 10^3/uL (4.3-11.0)
[2017-07-09] MEDS ORDERED: MECL-106 PO (02:23)
[2017-07-09] MEDS ORDERED: SITA100T12 PO (02:23)
[2017-07-09 02:39] LABS: ALBUMIN 3.4 GM/DL (3.2-4.5); BILIRUBIN,TOTAL 0.6 MG/DL (0.1-1.0); CALCIUM 8.5 MG/DL (8.5-10.1); CREATININE SERUM 1.83 MG/DL (0.60-1.30); MAGNESIUM 1.9 MG/DL (1.8-2.4); PHOSPHORUS 3.8 MG/DL (2.3-4.7); POTASSIUM 4.8 MMOL/L (3.6-5.0)
[2017-07-09 02:58] LABS: BILIRUBIN,URINE NEGATIVE (NEGATIVE); CLARITY,URINE CLEAR; COLOR,URINE YELLOW; GLUCOSE, URINE (UA) NEGATIVE (NEGATIVE); KETONES,URINE NEGATIVE (NEGATIVE); LEUKOCYTE ESTERASE ,URINE NEGATIVE (NEGATIVE); NITRITE,URINE NEGATIVE (NEGATIVE); PH,URINE 6 (5-9); PROTEIN,URINE NEGATIVE (NEGATIVE); UROBILINOGEN,URINE NORMAL (NORMAL)
[2017-07-09 03:15] LABS: BACTERIA,URINE NEGATIVE /HPF
[2017-07-09 04:25] VITALS: BP 134/62
[2017-07-09] MEDS ORDERED: ACETAMINOPHEN 500 MG TAB (TYLENOL) PO PRN (04:45)
[2017-07-09] MEDS ORDERED: fentaNYL INJECTION 100 MCG/2 ML AMP IV PRN (04:45)
[2017-07-09] MEDS ORDERED: ONDANSETRON 4 MG/2 ML (SDV) Z0FRAN IV PRN (04:45)
[2017-07-09] MEDS: PANTOPRAZOLE 40 MG (PROTONIX) TAB PO SCH (05:31)
[2017-07-09] MEDS: GABAPENTIN 600 MG (NEURONTIN) TAB PO SCH ×2 (05:31→14:53)
[2017-07-09] MEDS: inSUlin (REGULAR) HUMAN 1 UNIT/0.01 ML (CHARGE PER UNIT) SC SCH ×4 (05:46→20:50)
--- NOTE | 2017-07-09 06:42 | Diagnostic Imaging Report ---
EXAM: CHEST 1 VIEW, AP/PA ONLY INDICATION: Tremors. Dehydration. COMPARISON: Chest radiograph 06/20/2017. FINDINGS: Normal heart size and pulmonary vascularity. Increasing atelectasis or infiltrate in the right lung base. Elevation of the right hemidiaphragm. No pleural effusion or pneumothorax. No acute osseous findings. IMPRESSION: Elevation of right hemidiaphragm with increasing atelectasis and/or infiltrate in the right lung base. Dictated by: Dictated on workstation # [id number]
[2017-07-09 08:00] VITALS: BP 119/58
--- NOTE | 2017-07-09 08:04 | Consultation-Cardiology ---
HPI-Cardiology Cardiology Consultation: Date of Consultation 07/09/17 Time Seen by Provider: 08:50 Date of Admission 07-08-17 Attending Physician Phill Ashraf DO Admitting Physician Phill Ashraf DO Consulting Physician DELMY MANRIQUEZ HPI: Chief Complaint: Bradycardia Mr. Mccarthy is an 82 year old male who has been admitted to [facility] from the assisted living facility in which he resides. His son Venkatesh Ramirez is a the bedside. They report approx 2 weeks ago he began to have generalized weakness, dizziness, uncontrollable twitching of his face. He reports when raising his arms he has uncontrollable movements. He states he came to the ED at that time and received IVF along with tx for a UTI. He did improve and was released. However, the symptoms began again a couple days ago and have become progressive. He reports inability to urinate. He denies any syncope or near syncope. No difficulty with speaking or swallowing. His son reports he has had a few falls recently, but no injuries or head trauma. He denies any shortness of breath, however when asked to take a deep breath during the exam he reports he feels that is difficult for him to do. He denies any CP or dyspnea. His son does report he was seen approx a month ago by a chiropractor and had "adjustments" to his neck. Review of Systems-Cardiology Review of Systems Constitutional: No chills, No fever; lightheadedness, tiredness Eyes: No vision change Ears/Nose/Throat: No epistaxis, No recent hearing loss Respiratory: As described under HPI Cardiovascular: As described under HPI Gastrointestinal: No constipation, No diarrhea, No nausea, No vomiting Genitourinary: dysuria Musculoskeletal: other (chronic foot drop) Skin: No rash, No ulcerations Psychiatric/Neurological: As described under HPI Hematologic: No bleeding abnormalities CYT-Eocrgq-Rekptw Hx Patient Social History Alcohol Use: Denies Use Recreational Drug Use: No Smoking Status: Former Smoker Recent Foreign Travel: No Recent Infectious Disease Expo: No Hospitalization with Isolation: Denies Physical Abuse Screen: No Sexual Abuse: No Immunizations Up To Date Date of Pneumonia Vaccine: Dec 18, 2013 Date of Influenza Vaccine: Dec 18, 2016 Past Medical History PMH As described under Assessment. Family Medical History Family History: Patient reports no known family medical history. Allergies and Home Medications Allergies Coded Allergies: metformin (Unverified Adverse Reaction, Mild, 3/2/13) Home Medications Acetaminophen 325 Mg Tablet, 325 MG PO Q6H PRN for TEMP>100, (Reported) Allopurinol 100 Mg Tablet, 100 MG PO 799,1999, (Reported) Aspirin 81 Mg Tablet.dr, 81 MG PO 1999, (Reported) Clopidogrel Bisulfate 75 Mg Tablet, 75 MG PO 1999, (Reported) Finasteride 5 Mg Tablet, 5 MG PO 0800, (Reported) Gabapentin 600 Mg Tablet, 600 MG PO 0700,1400, (Reported) Gabapentin 300 Mg Capsule, 900 MG PO 1999, (Reported) TAKES 3 (300 MG) CAPSULES Glimepiride 4 Mg Tablet, 4 MG PO 08,1999, (Reported) Irbesartan 150 Mg Tablet, 150 MG PO 1999, (Reported) Loperamide HCl 2 Mg Tablet, PO UD PRN for LOOSE STOOLS, (Reported) TAKE 2 AFTER 1ST LOOSE STOOL THEN 1 AFTER EACH LOOSE STOOL (MAX 4 IN 24 HOURS ) Lovastatin 40 Mg Tablet, 40 MG PO 1999, (Reported) Meclizine HCl 25 Mg Tablet, 25 MG PO TID PRN for DIZZINESS, (Reported) Metoprolol Tartrate 50 Mg Tablet, 50 MG PO 799,1999, (Reported) Pantoprazole Sodium 40 Mg Tablet.dr, 40 MG PO 0700, (Reported) Sitagliptin Phosphate 100 Mg Tablet, 100 MG PO 1999, (Reported) Tamsulosin HCl 0.4 Mg Cap.er.24h, 0.4 MG PO 1730, (Reported) Patient Home Medication List Home Medication List Reviewed: Yes Physical Exam-Cardiology Physical Exam Vital Signs/I&O 07/10/17 07/10/17 00:00 01:00 Temp 96.6 Pulse 72 64 Resp 20 B/P (MAP) 160/60 (93) Pulse Ox 94 O2 Delivery Room Air 07/10/17 00:00 Intake Total 1570 ml Output Total 1200 ml Balance 370 ml Capillary Refill : Less Than 3 Seconds Constitutional: AAO x 3, well-developed, well-nourished HEENT: PERRL, other (strabismus), hearing is well preserved Neck: No carotid bruit; carotid pulses are 2 + bilaterally Respiratory: other (poor inspiratory effort) Cardiovascular: irregularly irregular (bradycardia), S1 and S2 Gastrointestinal: No tender; soft, audible bowel sounds (hyperactive) Rectal: No deferred Extremities: no lower extremity edema bilateral Neurologic/Psychiatric: other (uncontrollable twitching of his mouth and face; delayed speech; uncontrolled, jerky movement of arms when raising them, weak dye tank tender bilat) Lymphatic: no adenopathy Data Review Labs Laboratory Tests 07/09/17 11:22: Glucometer 148H 07/09/17 16:11: Glucometer 156H 07/09/17 20:28: Glucometer 156H 07/10/17 05:31: Glucometer 81 07/10/17 05:36: White Blood Count 7.2, Red Blood Count 3.71L, Hemoglobin 11.2L, Hematocrit 35L, Mean Corpuscular Volume 94, Mean Corpuscular Hemoglobin 30, Mean Corpuscular Hemoglobin Concent 32, Red Cell Distribution Width 15.0H, Platelet Count 166, Mean Platelet Volume 11.1H, Sodium Level 138, Potassium Level 5.9H, Chloride Level 116H, Carbon Dioxide Level 16L, Anion Gap 6, Blood Urea Nitrogen 46H, Creatinine 1.85H, Estimat Glomerular Filtration Rate 35, BUN/Creatinine Ratio 25 , Glucose Level 75, Calcium Level 8.5, Magnesium Level 2.0, Total Bilirubin 0.6 , Aspartate Amino Transf (AST/SGOT) 16, Alanine Aminotransferase (ALT/SGPT) 22, Alkaline Phosphatase 71, Total Protein 5.9L, Albumin 3.4 Radiology NAME: [facility] REC#: [id number] PT STATUS: ADM Jim : 1935 PHYSICIAN: SHARON WEAVER MD ADMIT DATE: 07/09/17 Draft Date of Exam:07/09/17 CHEST 1 VIEW, AP/PA ONLY EXAM: CHEST 1 VIEW, AP/PA ONLY INDICATION: Tremors. Dehydration. COMPARISON: Chest radiograph 06/20/2017. FINDINGS: Normal heart size and pulmonary vascularity. Increasing atelectasis or infiltrate in the right lung base. Elevation of the right hemidiaphragm. No pleural effusion or pneumothorax. No acute osseous findings. IMPRESSION: Elevation of right hemidiaphragm with increasing atelectasis and/or infiltrate in the right lung base. Dictated on workstation # [id number] Dict: 07/09/17 0639 Trans: 07/09/17 0641 [facility] [id number] Interpreted by: VASILE ACUÑA MD Electronically signed by: ECG Impression ECG Comment SB with 1st degree AV block A/P-Cardiology Assessment/Admission Diagnosis Bradycardia - 1st degree AV block with intermittent second degree - BB stopped Urinary retention of undetermined etiology - Dr. Keyes Uncontrolled facial movement, generalized weakness and uncontrollable arm movement of undetermined etiology - CT per Dr. Ashraf UTI - medical services managing Coronary artery disease with history of angioplasty and stenting of the mid left anterior descending and the right coronary artery. Cardiac cath of January 01, 2017: 70-80% mid vessel stenosis of fhe LAD to which successful stenting was carried out with a Resolute 2.25 x 22 mm stent deployed at 16 atmospheres with reduction of stenosis to 0%. A more proximal LAD stent is widely patent. A very small caliber first diagonal branch is jailed by the stnet and has 70% ostial stenosis but is not amenable to intervention d/t small vessel size. 50% mid vessel stenosis left cx artery with a FFR of greater than 0.9, indicating hemodynamic insignificance. Patent stents in the prox and mid RCA with proximal stent exhibiting approx 40-50% in stent restenosis. Mild to mod LVEDP elevation. R great toe ulcer being managed by [facility]. Seg pressures of 05/24/17 show normal ABIs and TBI MPI of 11-08-15 did not show myocardial ischemia or infarction and LVEF was 72% History of isolated premature atrial and ventricular contractions. Mild carotid artery disease per carotid ultrasonography of November 2015. Chronic intermittent leg swelling, likely related to venous insufficiency, currently controlled Chronic intermittent diarrhea of undetermined etiology, currently stable. Chronic intermittent dizziness. Degenerative joint disease. Gastroesophageal reflux. Sleep apnea, being treated with C-PAP therapy. Hypertension, under good control. Gout. Hyperlipidemia being treated with lovastatin. Borderline maturity onset diabetes mellitus. Obesity with a body mass index of approximately 33 Chronic poor balance being followed by Dr. Ashraf. PAD. Scattered atherosclerotic disease of the bilateral lower extremity arterial systems, no hemodynamically significant stenosis per bilateral lower extremity arterial Doppler from 04/30/2012. U/S from 11-24-14 showed no sonographic evidence for hemodynamically significant stenosis or arterial occlusion within either leg. 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
--- NOTE | 2017-07-09 08:18 | History & Physicial ---
History of Present Illness History of Present Illness Reason for visit/HPI Patient lives in assisted care living. Patient when t picks up his hand has a tremor movement. Patient had urinary obstruction of the thousand meals in his bladder fine. Patient bradycardic.. Chest x-ray pneumonia versus atelectasis. Patient has renal insufficiency. Patient known diabetic Date of Admission Jul 09, 2017 at 03:30 Time Seen by Provider: 08:10 I consulted on this patient on 07/09/17 08:04 Attending Physician Phill Hinojosa DO Admitting Physician Phill Hinojosa DO Consult DEEJAY KENYON MD FACP FACC CCDS Allergies and Home Medications Allergies Coded Allergies: metformin (Unverified Adverse Reaction, Mild, 05/24/12) Home Medications Allopurinol 100 Mg Tablet, 100 MG PO BID, (Reported) Aspirin 81 Mg Tablet.dr, 81 MG PO HS, (Reported) Cephalexin 500 Mg Capsule, 500 MG PO QID Prescribed by: SOLO LEDESMA on 06/12/17 1630 Clopidogrel Bisulfate 75 Mg Tablet, 75 MG PO DAILY Prescribed by: DEEJAY KENYON on 01/01/17 1351 Finasteride 5 Mg Tablet, 5 MG PO DAILY, (Reported) Gabapentin 600 Mg Tablet, 600 MG PO 0700,1400, (Reported) Gabapentin 300 Mg Capsule, 900 MG PO HS, (Reported) TAKES 3 (300 MG) CAPSULES Glimepiride 4 Mg Tablet, 4 MG PO BID, (Reported) Irbesartan 150 Mg Tablet, 150 MG PO HS, (Reported) Lovastatin 40 Mg Tablet, 40 MG PO HS, (Reported) Meclizine HCl 25 Mg Tablet, 25 MG PO PRN, (Reported) Metoprolol Tartrate 50 Mg Tablet, 50 MG PO BID, (Reported) Pantoprazole Sodium 40 Mg Granpkt.dr, 40 MG PO DAILY, (Reported) Tamsulosin HCl 0.4 Mg Cap.er.24h, 0.4 MG PO DAILY, (Reported) Triamcinolone Acet 15 Gm Cr, 15 GM TP TID, (Reported) Patient Home Medication List Home Medication List Reviewed: No Past Netyuyw-Gvdrvf-Kzuujh Hx Patient Social History Marrital Status: Employed/Student: unemployed Alcohol Use: Denies Use Recreational Drug Use: No Smoking Status: Former Smoker Former Smoker, Quit: Jul 10, 1991 Physical Abuse Screen: No Sexual Abuse: No Recent Foreign Travel: No Contact w/other who traveled: No Recent Hopitalizations: Yes Recent Infectious Disease Expo: No Immunizations Up To Date Date of Pneumonia Vaccine: Dec 18, 2013 Date of Influenza Vaccine: Dec 18, 2016 Seasonal Allergies Seasonal Allergies: No Surgeries Yes (R foot screw, ) Appendectomy, Coronary Stent, Gallbladder, Orthopedic, Tonsillectomy Respiratory No Currently Using CPAP: Yes Cardiovascular Yes Coronary Artery Disease, High Cholesterol, Hypertension Neurological Yes Neuropathy Reproductive System Hx Reproductive Disorders: No Genitourinary Yes (urinary retention) Kidney Stones Gastrointestinal Yes Gastroesophageal Reflux Musculoskeletal Yes (SCREWS PLACED IN RIGHT ANKLE > 15 YRS AGO) Arthritis, Foot Drop, Gout Endocrine History of Endocrine Disorders: Yes Endocrine Disorders: Diabetes, Non-Insulin dep HEENT HEENT Disorders: Cataract Loss of Vision: Denies Hearing Impairment: Hard of Hearing Cancer No Psychosocial History of Psychiatric Problem: No Integumentary History of Skin or Integumenta: No Blood Transfusions History of Blood Disorders: No Family Medical History Family Hx: Patient reports no known family medical history. Constitutional: weakness, other (Tremor movement 1 picks up disease) EENTM: no symptoms reported, nose congestion Respiratory: no symptoms reported Cardiovascular: no symptoms reported Gastrointestinal: no symptoms reported Genitourinary: other (Urinary obstruction) Physical Exam Vital Signs Vital Signs - First Documented 07/09/17 01:50 Temp 97.2 Pulse 51 Resp 20 B/P (MAP) 112/78 (89) Pulse Ox 94 O2 Delivery Room Air Capillary Refill : Less Than 3 Seconds General Appearance: No Apparent Distress, WD/WN Eyes: Bilateral Eye Normal Inspection HEENT: Normal ENT Inspection Neck: Normal Inspection Respiratory: No Accessory Muscle Use, No Respiratory Distress Cardiovascular: Bradycardia Gastrointestinal: Non Tender, Soft Assessment/Plan Admission Diagnosis Neurological problem. Tremor. vagal effect. Bradycardia. Pneumonia. Urinary retention. Renal insufficiency. Admission Status: Observation Clinical Quality Measures DVT/VTE Risk/Contraindication: Risk Factor Score Per Nursin RFS Level Per Nursing on Admit: 3=High PHILL HINOJOSA DO Jul 09, 2017 08:18
[2017-07-09] MEDS: FINASTERIDE (PROSCAR) 5 MG TAB PO SCH (08:56)
[2017-07-09] MEDS: cefTRIAXone INJECTION 1,000 MG in NS (IVPB) 100 ML IV SCH (08:57)
[2017-07-09] MEDS ORDERED: ASPIRIN 81 MG CHEW (CHILDREN'S ASA) PO SCH ×2 (09:00→20:00)
[2017-07-09] MEDS ORDERED: CLOPIDOGREL 75 MG (PLAVIX) TABLET PO SCH ×2 (09:00→20:00)
[2017-07-09] MEDS ORDERED: PANT40TA3 PO (09:07)
[2017-07-09] MEDS ORDERED: LOPE-134 PO (09:07)
[2017-07-09] MEDS ORDERED: ACET325T38 PO (09:07)
[2017-07-09] MEDS ORDERED: CLOP75TA28 PO (09:07)
--- NOTE | 2017-07-09 10:49 | Diagnostic Imaging Report ---
CLINICAL INDICATION: Patient with new onset tremors with jerking motions of body and extremities. EXAM: Axial CT scan of the brain performed without IV contrast. COMPARISON: Head CT without IV contrast dated 06/12/2017. FINDINGS: There is no evidence of acute cerebral infarct, intracranial hemorrhage, or gross mass effect. Again seen focal and patchy areas of low-attenuation white matter changes seen throughout both cerebral hemispheres, likely representing chronic small vessel ischemic disease. The brain parenchymal volume appears appropriate for patient's age. There is normal cantu-white matter distinction. There is no significant midline shift or herniation. Again seen atherosclerotic calcification involving the intradural vertebral artery and cavernous carotid arteries. There is no evidence of hydrocephalus. The basal cisterns are unremarkable. The skull, extracranial soft tissue, and orbits are unremarkable. The paranasal sinuses are unremarkable. Temporal bones show no significant abnormality. IMPRESSION: 1: Stable CT scan of the brain with no evidence of acute intracranial process. 2: Age-related brain parenchymal changes with chronic small vessel ischemic disease. Dictated by: Dictated on workstation # [id number]
[2017-07-09 12:00] VITALS: BP 123/70
[2017-07-09] MEDS ORDERED: ENOXAPARIN 40 MG/0.4 ML (LOVENOX) SYR SC SCH (15:15)
[2017-07-09] MEDS ORDERED: CATHETER FLUSH 10 ML SYR IV PRN (15:30)
--- NOTE | 2017-07-09 16:09 | Consultation-Cardiology ---
HPI-Cardiology Cardiology Consultation: Date of Consultation 07/09/17 Time Seen by Provider: 15:10 Date of Admission Attending Physician Phill Ashraf DO Admitting Physician Phill Ashraf DO Consulting Physician DEEJAY KENYON MD, MA, FACP, FACC, FSCAI, CCDS HPI: Chief Complaint: Reason for consultation: Bradycardia Mr. Mccarthy is an 82 year old male who has been admitted to [facility] from the assisted living facility in which he resides. His son Venkatesh Ramirez is a the bedside. They report approx 2 weeks ago he began to have generalized weakness, dizziness, uncontrollable twitching of his face. He reports when raising his arms he has uncontrollable movements. He states he came to the ED at that time and received IVF along with tx for a UTI. He did improve and was released. However, the symptoms began again a couple days ago and have become progressive. He reports inability to urinate. He denies any syncope or near syncope. No difficulty with speaking or swallowing. His son reports he has had a few falls recently, but no injuries or head trauma. He denies any shortness of breath, however when asked to take a deep breath during the exam he reports he feels that is difficult for him to do. He denies any CP or dyspnea. His son does report he was seen approx a month ago by a chiropractor and had "adjustments" to his neck. Review of Systems-Cardiology Review of Systems Constitutional: No chills, No fever; lightheadedness, tiredness Eyes: No vision change Ears/Nose/Throat: No epistaxis, No recent hearing loss Respiratory: As described under HPI Cardiovascular: As described under HPI Gastrointestinal: No constipation, No diarrhea, No nausea, No vomiting Genitourinary: dysuria Musculoskeletal: other (chronic foot drop) Skin: No rash, No ulcerations Psychiatric/Neurological: As described under HPI Hematologic: No bleeding abnormalities CTO-Ktlxds-Gpexag Hx Patient Social History Marrital Status: Employed/Student: unemployed Alcohol Use: Denies Use Recreational Drug Use: No Smoking Status: Former Smoker Recent Foreign Travel: No Recent Infectious Disease Expo: No Hospitalization with Isolation: Denies Physical Abuse Screen: No Sexual Abuse: No Immunizations Up To Date Date of Pneumonia Vaccine: Dec 18, 2013 Date of Influenza Vaccine: Dec 18, 2016 Past Medical History PMH As described under Assessment. Family Medical History Family History: Patient reports no known family medical history. Allergies and Home Medications Allergies Coded Allergies: metformin (Unverified Adverse Reaction, Mild, 05/24/12) Home Medications Acetaminophen 325 Mg Tablet, 325 MG PO Q6H PRN for TEMP>100, (Reported) Allopurinol 100 Mg Tablet, 100 MG PO 799,1999, (Reported) Aspirin 81 Mg Tablet.dr, 81 MG PO 1999, (Reported) Clopidogrel Bisulfate 75 Mg Tablet, 75 MG PO 1999, (Reported) Finasteride 5 Mg Tablet, 5 MG PO 0800, (Reported) Gabapentin 600 Mg Tablet, 600 MG PO 0700,1400, (Reported) Gabapentin 300 Mg Capsule, 900 MG PO 1999, (Reported) TAKES 3 (300 MG) CAPSULES Glimepiride 4 Mg Tablet, 4 MG PO 08,1999, (Reported) Irbesartan 150 Mg Tablet, 150 MG PO 1999, (Reported) Loperamide HCl 2 Mg Tablet, PO UD PRN for LOOSE STOOLS, (Reported) TAKE 2 AFTER 1ST LOOSE STOOL THEN 1 AFTER EACH LOOSE STOOL (MAX 4 IN 24 HOURS ) Lovastatin 40 Mg Tablet, 40 MG PO 1999, (Reported) Meclizine HCl 25 Mg Tablet, 25 MG PO TID PRN for DIZZINESS, (Reported) Metoprolol Tartrate 50 Mg Tablet, 50 MG PO 799,1999, (Reported) Pantoprazole Sodium 40 Mg Tablet.dr, 40 MG PO 0700, (Reported) Sitagliptin Phosphate 100 Mg Tablet, 100 MG PO 1999, (Reported) Tamsulosin HCl 0.4 Mg Cap.er.24h, 0.4 MG PO 1730, (Reported) Patient Home Medication List Home Medication List Reviewed: Yes Physical Exam-Cardiology Physical Exam Vital Signs/I&O 07/09/17 07/09/17 07/09/17 07/09/17 04:02 04:25 04:47 07:00 Temp 97.5 Pulse 51 58 52 Resp 20 20 B/P (MAP) 102/60 134/62 (86) Pulse Ox 94 96 O2 Delivery Room Air Room Air Room Air 07/09/17 07/09/17 08:00 12:00 Temp 95.7 95.5 Pulse 70 54 Resp 26 24 B/P (MAP) 119/58 (78) 123/70 (87) Pulse Ox 94 95 O2 Delivery Room Air Room Air Capillary Refill : NONELess Than 3 Seconds Constitutional: AAO x 3, well-developed, well-nourished HEENT: PERRL, other (strabismus), hearing is well preserved Neck: No carotid bruit; carotid pulses are 2 + bilaterally Respiratory: other (poor inspiratory effort) Cardiovascular: irregularly irregular (bradycardia), S1 and S2 Gastrointestinal: No tender; soft, audible bowel sounds (hyperactive) Rectal: No deferred Extremities: no lower extremity edema bilateral Neurologic/Psychiatric: other (uncontrollable twitching of his mouth and face; delayed speech; uncontrolled, jerky movement of arms when raising them, 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) Skin: No rash on exposed areas, No ulcerations on exposed areas Lymphatic: no adenopathy Data Review Labs Laboratory Tests 07/09/17 02:14: White Blood Count 7.5, Red Blood Count 3.67L, Hemoglobin 11.3L, Hematocrit 34L, Mean Corpuscular Volume 92, Mean Corpuscular Hemoglobin 31, Mean Corpuscular Hemoglobin Concent 33, Red Cell Distribution Width 14.4, Platelet Count 165, Mean Platelet Volume 10.7H, Neutrophils (%) (Auto) 68, Lymphocytes (%) (Auto) 19 , Monocytes (%) (Auto) 9, Eosinophils (%) (Auto) 3, Basophils (%) (Auto) 1, Neutrophils # (Auto) 5.1, Lymphocytes # (Auto) 1.4, Monocytes # (Auto) 0.7, Eosinophils # (Auto) 0.2, Basophils # (Auto) 0.0, Sodium Level 133L, Potassium Level 4.8, Chloride Level 108H, Carbon Dioxide Level 17L, Anion Gap 8, Blood Urea Nitrogen 44H, Creatinine 1.83H, Estimat Glomerular Filtration Rate 35, BUN/ Creatinine Ratio 24, Glucose Level 91, Calcium Level 8.5, Phosphorus Level 3.8, Magnesium Level 1.9, Total Bilirubin 0.6, Aspartate Amino Transf (AST/SGOT) 14, Alanine Aminotransferase (ALT/SGPT) 20, Alkaline Phosphatase 78, Troponin I < 0.30, Total Protein 6.0L, Albumin 3.4, Thyroid Stimulating Hormone (TSH) 3.03 07/09/17 02:53: Urine Color YELLOW, Urine Clarity CLEAR, Urine pH 6, Urine Specific Aldrich 1.005L, Urine Protein NEGATIVE, Urine Glucose (UA) NEGATIVE, Urine Ketones NEGATIVE, Urine Nitrite NEGATIVE, Urine Bilirubin NEGATIVE, Urine Urobilinogen NORMAL, Urine Leukocyte Esterase NEGATIVE, Urine RBC (Auto) NEGATIVE, Urine RBC NONE, Urine WBC NONE, Urine Squamous Epithelial Cells NONE, Urine Crystals NONE , Urine Bacteria NEGATIVE, Urine Casts NONE, Urine Mucus NEGATIVE, Urine Culture Indicated NO 07/09/17 05:35: Glucometer 86 07/09/17 11:22: Glucometer 148H Laboratory Tests 07/09/17 02:14 A/P-Cardiology Assessment/Admission Diagnosis Bradycardia - 1st degree AV block with intermittent second degree alternating with atrial fib with a slow vent response Involuntary movements of the face, head and arms of undetermined etiology, being managed by Dr Ashraf Urinary retention of undetermined etiology, being managed by Dr Ashraf and Dr. Keyes UTI - managed by Dr Ashraf Acute on chronic renal failure, being managed by Dr Ashraf Coronary artery disease with history of angioplasty and stenting of the mid left anterior descending and the right coronary artery. Cardiac cath of January 01, 2017: 70-80% mid vessel stenosis of fhe LAD to which successful stenting was carried out with a Resolute 2.25 x 22 mm stent deployed at 16 atmospheres with reduction of stenosis to 0%. A more proximal LAD stent is widely patent. A very small caliber first diagonal branch is jailed by the stnet and has 70% ostial stenosis but is not amenable to intervention d/t small vessel size. 50% mid vessel stenosis left cx artery with a FFR of greater than 0.9, indicating hemodynamic insignificance. Patent stents in the prox and mid RCA with proximal stent exhibiting approx 40-50% in stent restenosis. Mild to mod LVEDP elevation. R great toe ulcer being managed by [facility]. Seg pressures of 05/24/17 show normal ABIs and TBIs MPI of 8-16-16 did not show myocardial ischemia or infarction and LVEF was 72% History of isolated premature atrial and ventricular contractions. Mild carotid artery disease per carotid ultrasonography of November 2015. Chronic intermittent leg swelling, likely related to venous insufficiency, currently controlled Chronic intermittent diarrhea of undetermined etiology, currently stable. Chronic intermittent dizziness. Degenerative joint disease. Gastroesophageal reflux. Sleep apnea, being treated with C-PAP therapy. Hypertension, under good control. Gout. Hyperlipidemia being treated with lovastatin. Borderline maturity onset diabetes mellitus. Obesity with a body mass index of approximately 34 Chronic poor balance being followed by Dr. Ashraf. PAD. Scattered atherosclerotic disease of the bilateral lower extremity arterial systems, no hemodynamically significant stenosis per bilateral lower extremity arterial Doppler from 04/30/2012. U/S from 11-24-14 showed no sonographic evidence for hemodynamically significant stenosis or arterial occlusion within either leg. 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 Pt appears quite ill * D/c beta-manuel * D/c ARB * iv fluids. Continue Plavix, because of relatively recent cor stenting * D/c aspirin to allow addition of Eliquis for stroke prophylaxis * Use low dose Eliquis because of renal failure * Follow labs closely * We recommend consideration of transfer to a tertiary care facility for eval and treatment of involuntary movement disorder Clinical Quality Measures DVT/VTE Risk/Contraindication: Risk Factor Score Per Nursin RFS Level Per Nursing on Admit: 3=High Contraindications-Pharm: Other *list below* DEEJAY KENYON MD FACP FAC CCDS Jul 09, 2017 16:09
[2017-07-09 16:10] VITALS: BP 124/56
[2017-07-09] MEDS: NS IV 1000 ML 1,000 ML IV SCH ×2 (18:25→21:59)
[2017-07-09 19:05] VITALS: BP 125/59
[2017-07-09] MEDS: APIXABAN 2.5 MG (ELIQUIS) TABLET PO SCH (20:33)
[2017-07-09] MEDS ORDERED: TAMSULOSIN 0.4 MG (FLOMAX) CAP PO SCH (21:00)
[2017-07-09] MEDS ORDERED: SIMvastatin 20 MG (ZOCOR) TAB PO SCH (21:00)
[2017-07-09] MEDS ORDERED: IRBESARTAN 150 MG (AVAPRO) TAB PO SCH (21:00)
[2017-07-09] MEDS ORDERED: GABAPENTIN 300 MG (NEURONTIN) CAP PO SCH (21:00)
[2017-07-10] VITALS: BP 160/60
[2017-07-10] MEDS: NS IV 1000 ML 1,000 ML IV SCH ×2 (00:16→07:59)
[2017-07-10] MEDS: inSUlin (REGULAR) HUMAN 1 UNIT/0.01 ML (CHARGE PER UNIT) SC SCH ×2 (05:48→11:17)
[2017-07-10 06:12] LABS: HEMOGLOBIN 11.2 G/DL (13.3-17.7); MEAN PLATELET VOLUME 11.1 FL (7.4-10.4); RED BLOOD COUNT 3.71 10^6/uL (4.35-5.85); WHITE BLOOD COUNT 7.2 10^3/uL (4.3-11.0)
[2017-07-10] MEDS: GABAPENTIN 600 MG (NEURONTIN) TAB PO SCH (06:15)
[2017-07-10] MEDS: PANTOPRAZOLE 40 MG (PROTONIX) TAB PO SCH (06:15)
[2017-07-10 06:35] LABS: ALBUMIN 3.4 GM/DL (3.2-4.5); BILIRUBIN,TOTAL 0.6 MG/DL (0.1-1.0); CALCIUM 8.5 MG/DL (8.5-10.1); CREATININE SERUM 1.85 MG/DL (0.60-1.30); POTASSIUM 5.9 MMOL/L (3.6-5.0); TOTAL PROTEIN 5.9 GM/DL (6.4-8.2)
--- NOTE | 2017-07-10 07:47 | Progress Note (SOAP) ---
Subjective Time Seen by Provider: 07:45 Subjective/Events-last exam Patient did not have any twitching this morning. Patient states when he is warm he doesn't which. Patient doing better. Bradycardia. Urinary retention. Twitching improved. Coronary artery disease. Diabetic nephropathy. Coronary artery disease. Diabetes. Renal insufficiency. Objective Exam Vital Signs Date Time Temp Pulse Resp B/P (MAP) Pulse Ox O2 Delivery O2 Flow Rate FiO2 07/10/17 01:00 64 07/10/17 00:00 96.6 72 20 160/60 (93) 94 Room Air 07/09/17 19:05 96.5 47 18 125/59 (81) 96 Room Air 07/09/17 19:00 56 07/09/17 16:10 95.5 50 20 124/56 (78) 94 Room Air 07/09/17 13:00 51 07/09/17 12:00 95.5 54 24 123/70 (87) 95 Room Air 07/09/17 08:00 95.7 70 26 119/58 (78) 94 Room Air I & O 07/10/17 07:00 Intake Total 3020 ml Output Total 1600 ml Balance 1420 ml Capillary Refill : NONELess Than 3 Seconds General Appearance: No Apparent Distress, WD/WN HEENT: Normal ENT Inspection Neck: Full Range of Motion, Normal Inspection Respiratory: Lungs Clear, No Accessory Muscle Use, No Respiratory Distress Cardiovascular: Bradycardia Gastrointestinal: non tender, soft Results Lab Laboratory Tests 07/09/17 11:22: Glucometer 148H 07/09/17 16:11: Glucometer 156H 07/09/17 20:28: Glucometer 156H 07/10/17 05:31: Glucometer 81 07/10/17 05:36: White Blood Count 7.2, Red Blood Count 3.71L, Hemoglobin 11.2L, Hematocrit 35L, Mean Corpuscular Volume 94, Mean Corpuscular Hemoglobin 30, Mean Corpuscular Hemoglobin Concent 32, Red Cell Distribution Width 15.0H, Platelet Count 166, Mean Platelet Volume 11.1H, Sodium Level 138, Potassium Level 5.9H, Chloride Level 116H, Carbon Dioxide Level 16L, Anion Gap 6, Blood Urea Nitrogen 46H, Creatinine 1.85H, Estimat Glomerular Filtration Rate 35, BUN/Creatinine Ratio 25 , Glucose Level 75, Calcium Level 8.5, Magnesium Level 2.0, Total Bilirubin 0.6 , Aspartate Amino Transf (AST/SGOT) 16, Alanine Aminotransferase (ALT/SGPT) 22, Alkaline Phosphatase 71, Total Protein 5.9L, Albumin 3.4 Assessment/Plan Assessment/Plan Assess & Plan/Chief Complaint Twitching. Bradycardia. Urinary retention. Coronary artery disease. Diabetic nephropathy. Diabetes. Renal insufficiency. Hypertension. Hyperlipidemia Clinical Quality Measures Admission Status Admission Dx Neurological problem. Tremor. vagal effect. Bradycardia. Pneumonia. Urinary retention. Renal insufficiency. DVT/VTE Risk/Contraindication: Risk Factor Score Per Nursin RFS Level Per Nursing on Admit: 3=High Contraindications-Pharm: Other *list below* GOLDY HINOJOSA DO Jul 10, 2017 07:47
[2017-07-10 08:00] VITALS: BP 95/47
--- NOTE | 2017-07-10 08:19 | Diagnostic Imaging Report ---
INDICATION: Followup atelectasis versus pneumonia. TIME OF EXAM: 6:02 AM Correlation is made with prior study one day earlier. FINDINGS: The heart size is stable. There has been some improved aeration to the right lung base since yesterday. Minimal residual atelectasis is noted with mild elevation of the right hemidiaphragm. There is mild central congestion noted. Left lung is clear. No effusion or pneumothorax is seen. IMPRESSION: Improved aeration to the right base when compared with examination one day earlier. Dictated by: Dictated on workstation # [id number]
[2017-07-10] MEDS ORDERED: 1/2 NS IV SOLUTION 1,000 ML IV SCH (08:30)
[2017-07-10] MEDS: APIXABAN 2.5 MG (ELIQUIS) TABLET PO SCH (08:40)
[2017-07-10] MEDS: FINASTERIDE (PROSCAR) 5 MG TAB PO SCH (08:40)
[2017-07-10] MEDS ORDERED: SOD POLYSTERENE 15 GM/60 ML (KAYEXALATE) UNIT DOSE PO NR (08:40)
[2017-07-10] MEDS: cefTRIAXone INJECTION 1,000 MG in NS (IVPB) 100 ML IV SCH (08:40)
[2017-07-10 08:59] LABS: CALCIUM 8.6 MG/DL (8.5-10.1); CREATININE SERUM 1.79 MG/DL (0.60-1.30); POTASSIUM 6.1 MMOL/L (3.6-5.0)
--- NOTE | 2017-07-10 09:35 | CONSULTATION REPORT ---
DATE OF SERVICE: 07/09/2017 ATTENDING PHYSICIAN: Phill Ashraf DO. SUMMARY: After reviewing the patient's record at the office and in the hospital, this is an 82-year-old white man known to me for few years with an enlarged prostate and prostatism; back in 2016, the volume of the prostate was 38 mL. We put him on Flomax 0.4 mg daily and Proscar 5. He came back for followup and was doing very well. Last time we saw him was 12/2014 had an appointment on 01/16/2017, but failed to show up. He is being admitted to the hospital and was found to have retention of urine, about 900 mL. A Beavers catheter was inserted draining clear urine. His PSA before was 3.5 back in 2016 and his rectal exam revealed flat to 1+ benign, nontender elastic prostate. IMPRESSION: BPH with prostatism and retention. RECOMMENDATIONS: Continue Flomax and Proscar, give some rest to the bladder, with the catheter. When the day before we dismiss him, according to medicine, we will take the catheter out and see how he voids. Plan was fully explained to the patient and his son. Job ID: [id number] DocumentID: [id number] Dictated Date: 07/09/2017 11:01:48 Senior Housekeeper Date: 07/09/2017 12:17:46 Dictated By: BIANCA NORMAN MD
[2017-07-10] MEDS ORDERED: inSUlin (REGULAR) HUMAN 1 UNIT/0.01 ML (CHARGE PER UNIT) SC ONE (10:15)
[2017-07-10] MEDS ORDERED: DEXTROSE 50% 50 ML (IMS) SYR IV ONE ×2 (10:15→10:30)
--- NOTE | 2017-07-10 10:15 | Progress Note-Cardiology ---
Cardiology SOAP Progress Note Subjective: Gen malaise, weakness, and tiredness No cp or shortness of breath at rest No syncope or presyncope Objective: I&O/Vital Signs 07/10/17 07/10/17 07/10/17 07/10/17 00:00 01:00 07:00 08:00 Temp 96.6 98.0 Pulse 72 64 43 69 Resp 20 24 B/P (MAP) 160/60 (93) 95/47 (63) Pulse Ox 94 93 O2 Delivery Room Air Room Air 07/10/17 00:00 Intake Total 1570 ml Output Total 1200 ml Balance 370 ml Weight (Pounds): 215 Weight (Ounces): 0.0 Weight (Calculated Kilograms): 97.319080 Constitutional: AAO x 3, well-developed, well-nourished Respiratory: other (poor inspiratory effort) Cardiovascular: irregularly irregular (bradycardia), S1 and S2 Gastrointestional: No tender; soft, audible bowel sounds (hyperactive) Extremities: no lower extremity edema bilateral Neurologic/Psychiatric: other (uncontrollable twitching of his mouth and face; delayed speech; uncontrolled, jerky movement of arms when raising them, 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) Skin: No rash on exposed areas, No ulcerations on exposed areas Results/Procedures: Labs Laboratory Tests 07/09/17 11:22: Glucometer 148H 07/09/17 16:11: Glucometer 156H 07/09/17 20:28: Glucometer 156H 07/10/17 05:31: Glucometer 81 07/10/17 05:36: White Blood Count 7.2, Red Blood Count 3.71L, Hemoglobin 11.2L, Hematocrit 35L, Mean Corpuscular Volume 94, Mean Corpuscular Hemoglobin 30, Mean Corpuscular Hemoglobin Concent 32, Red Cell Distribution Width 15.0H, Platelet Count 166, Mean Platelet Volume 11.1H, Sodium Level 138, Potassium Level 5.9H, Chloride Level 116H, Carbon Dioxide Level 16L, Anion Gap 6, Blood Urea Nitrogen 46H, Creatinine 1.85H, Estimat Glomerular Filtration Rate 35, BUN/Creatinine Ratio 25 , Glucose Level 75, Calcium Level 8.5, Magnesium Level 2.0, Total Bilirubin 0.6 , Aspartate Amino Transf (AST/SGOT) 16, Alanine Aminotransferase (ALT/SGPT) 22, Alkaline Phosphatase 71, Total Protein 5.9L, Albumin 3.4 07/10/17 08:37: Sodium Level 138, Potassium Level 6.1H, Chloride Level 115H, Carbon Dioxide Level 17L, Anion Gap 6, Blood Urea Nitrogen 46H, Creatinine 1.79H, Estimat Glomerular Filtration Rate 36, BUN/Creatinine Ratio 26, Glucose Level 80, Calcium Level 8.6 A/P: Assessment: Ac on chronic renal failure, now associated with hyperkalemia Worsening acidosis: probably metabolic due to renal failure; also need to consider septicemia Bradycardia - 1st degree AV block with intermittent second degree alternating with atrial fib with a slow vent response. This is likely related to renal failure, acidosis and elec abnormalities Involuntary movements of the face, head and arms (including tic-like and choreiform movements) of undetermined etiology, being managed by Dr Ashraf Urinary retention of undetermined etiology, being managed by Dr Ashraf and Dr. Keyes UTI - managed by Dr Ashraf Coronary artery disease with history of angioplasty and stenting of the mid left anterior descending and the right coronary artery. Cardiac cath of January 01, 2017: 70-80% mid vessel stenosis of fhe LAD to which successful stenting was carried out with a Resolute 2.25 x 22 mm stent deployed at 16 atmospheres with reduction of stenosis to 0%. A more proximal LAD stent is widely patent. A very small caliber first diagonal branch is jailed by the stnet and has 70% ostial stenosis but is not amenable to intervention d/t small vessel size. 50% mid vessel stenosis left cx artery with a FFR of greater than 0.9, indicating hemodynamic insignificance. Patent stents in the prox and mid RCA with proximal stent exhibiting approx 40-50% in stent restenosis. Mild to mod LVEDP elevation. R great toe ulcer being managed by [facility]. Seg pressures of 05/24/17 show normal ABIs and TBIs MPI of 11-08-15 did not show myocardial ischemia or infarction and LVEF was 72% History of isolated premature atrial and ventricular contractions. Mild carotid artery disease per carotid ultrasonography of November 2015. Chronic intermittent leg swelling, likely related to venous insufficiency, currently controlled Chronic intermittent diarrhea of undetermined etiology, currently stable. Chronic intermittent dizziness. Degenerative joint disease. Gastroesophageal reflux. Sleep apnea, being treated with C-PAP therapy. Hypertension, under good control. Gout. Hyperlipidemia being treated with lovastatin. Borderline maturity onset diabetes mellitus. Obesity with a body mass index of approximately 34 Chronic poor balance being followed by Dr. Ashraf. PAD. Scattered atherosclerotic disease of the bilateral lower extremity arterial systems, no hemodynamically significant stenosis per bilateral lower extremity arterial Doppler from 04/30/2012. U/S from 11-24-14 showed no sonographic evidence for hemodynamically significant stenosis or arterial occlusion within either leg. 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 Pt appears quite ill * Treat acidosis and hyperkalemia * I had a detailed discussion with Dr Ashraf this am and outlined our concerns that are noted above * We recommend transfer tertiary care facility for eval and treatment acute renal failure and acidosis and involuntary movement disorder. [facility] should be consulted there, as well. At this time, his bradycardia seems related to metabolic abnormalities (see above) and he is not symptomatic. Pacemaker, therefore, does not appear required at this time * I discussed above issues with him and his family and answered questions DEEJAY KENYON MD FACP FAC CCDS Jul 10, 2017 10:15
[2017-07-10] MEDS ORDERED: CALCIUM GLUCONATE 10% INJ 4.65 MEQ in NS (IVPB) 100 ML IV NR (10:19)
[2017-07-10] MEDS ORDERED: inSUlin (REGULAR) HUMAN 1 UNIT/0.01 ML (CHARGE PER UNIT) SC NR (10:20)
[2017-07-10] MEDS ORDERED: SODIUM BICARB 8.4% 50 MEQ/50 ML (ABBOTT) SYR IV NR (10:36)
[2017-07-10] MEDS ORDERED: DEXTROSE 50% 50 ML (IMS) SYR ONE (10:39)
[2017-07-10 11:58] VITALS: BP 111/51
[2017-07-10 12:48] VITALS: BP 111/51
--- NOTE | 2017-07-11 08:42 | Discharge Summary ---
Diagnosis/Chief Complaint Date of Admission Jul 10, 2017 at 10:00 Date of Discharge Jul 10, 2017 at 10:34 Discharge Time: 08:40 Discharge Diagnosis Renal insufficiency. Diabetes. Diabetic neuropathy. Pneumonia. Urinary retention. Benign prostatic hypertrophy. Weakness. Hyperkalemia. Anemia. Bradycardia with first-degree AV block little intermittent second-degree. Involuntary movements of face, hands, and arms. Choreiform movements. Hypertension. Gout Reason Hospital Visit Patient lives in assisted care living. Patient when t picks up his hand has a tremor movement. Patient had urinary obstruction of the thousand meals in his bladder fine. Patient bradycardic.. Chest x-ray pneumonia versus atelectasis. Patient has renal insufficiency. Patient known diabetic Discharge Summary Consultations Cardiology Discharge Physical Examination Allergies: Coded Allergies: metformin (Unverified Adverse Reaction, Mild, 05/24/12) Vitals & I&Os Vital Signs Date Time Temp Pulse Resp B/P (MAP) Pulse Ox O2 Delivery O2 Flow Rate FiO2 07/10/17 12:48 50 18 111/51 94 Room Air 07/10/17 11:58 98.3 Hospital Course Patient had multiple problems. Patient transferred to tertiary care center in [facility]. Cardiology and myself felt patient's or go to the next level Labs (last 24 hrs) Laboratory Tests 07/09/17 02:14: White Blood Count 7.5, Red Blood Count 3.67L, Hemoglobin 11.3L, Hematocrit 34L, Mean Corpuscular Volume 92, Mean Corpuscular Hemoglobin 31, Mean Corpuscular Hemoglobin Concent 33, Red Cell Distribution Width 14.4, Platelet Count 165, Mean Platelet Volume 10.7H, Neutrophils (%) (Auto) 68, Lymphocytes (%) (Auto) 19 , Monocytes (%) (Auto) 9, Eosinophils (%) (Auto) 3, Basophils (%) (Auto) 1, Neutrophils # (Auto) 5.1, Lymphocytes # (Auto) 1.4, Monocytes # (Auto) 0.7, Eosinophils # (Auto) 0.2, Basophils # (Auto) 0.0, Sodium Level 133L, Potassium Level 4.8, Chloride Level 108H, Carbon Dioxide Level 17L, Anion Gap 8, Blood Urea Nitrogen 44H, Creatinine 1.83H, Estimat Glomerular Filtration Rate 35, BUN/ Creatinine Ratio 24, Glucose Level 91, Calcium Level 8.5, Phosphorus Level 3.8, Magnesium Level 1.9, Total Bilirubin 0.6, Aspartate Amino Transf (AST/SGOT) 14, Alanine Aminotransferase (ALT/SGPT) 20, Alkaline Phosphatase 78, Troponin I < 0.30, Total Protein 6.0L, Albumin 3.4, Thyroid Stimulating Hormone (TSH) 3.03 07/09/17 02:53: Urine Color YELLOW, Urine Clarity CLEAR, Urine pH 6, Urine Specific [place] 1.005L, Urine Protein NEGATIVE, Urine Glucose (UA) NEGATIVE, Urine Ketones NEGATIVE, Urine Nitrite NEGATIVE, Urine Bilirubin NEGATIVE, Urine Urobilinogen NORMAL, Urine Leukocyte Esterase NEGATIVE, Urine RBC (Auto) NEGATIVE, Urine RBC NONE, Urine WBC NONE, Urine Squamous Epithelial Cells NONE, Urine Crystals NONE , Urine Bacteria NEGATIVE, Urine Casts NONE, Urine Mucus NEGATIVE, Urine Culture Indicated NO 07/09/17 05:35: Glucometer 86 07/09/17 11:22: Glucometer 148H 07/09/17 16:11: Glucometer 156H 07/09/17 20:28: Glucometer 156H 07/10/17 05:31: Glucometer 81 07/10/17 05:36: White Blood Count 7.2, Red Blood Count 3.71L, Hemoglobin 11.2L, Hematocrit 35L, Mean Corpuscular Volume 94, Mean Corpuscular Hemoglobin 30, Mean Corpuscular Hemoglobin Concent 32, Red Cell Distribution Width 15.0H, Platelet Count 166, Mean Platelet Volume 11.1H, Sodium Level 138, Potassium Level 5.9H, Chloride Level 116H, Carbon Dioxide Level 16L, Anion Gap 6, Blood Urea Nitrogen 46H, Creatinine 1.85H, Estimat Glomerular Filtration Rate 35, BUN/Creatinine Ratio 25 , Glucose Level 75, Calcium Level 8.5, Magnesium Level 2.0, Total Bilirubin 0.6 , Aspartate Amino Transf (AST/SGOT) 16, Alanine Aminotransferase (ALT/SGPT) 22, Alkaline Phosphatase 71, Total Protein 5.9L, Albumin 3.4 07/10/17 08:37: Sodium Level 138, Potassium Level 6.1H, Chloride Level 115H, Carbon Dioxide Level 17L, Anion Gap 6, Blood Urea Nitrogen 46H, Creatinine 1.79H, Estimat Glomerular Filtration Rate 36, BUN/Creatinine Ratio 26, Glucose Level 80, Calcium Level 8.6 07/10/17 10:46: Glucometer 85 Laboratory Tests 07/09/17 02:14 07/10/17 05:36 07/10/17 08:37 Pending Labs Laboratory Tests 07/09/17 02:14: White Blood Count 7.5, Red Blood Count 3.67, Hemoglobin 11.3, Hematocrit 34, Mean Corpuscular Volume 92, Mean Corpuscular Hemoglobin 31, Mean Corpuscular Hemoglobin Concent 33, Red Cell Distribution Width 14.4, Platelet Count 165, Mean Platelet Volume 10.7, Neutrophils (%) (Auto) 68, Lymphocytes (%) (Auto) 19 , Monocytes (%) (Auto) 9, Eosinophils (%) (Auto) 3, Basophils (%) (Auto) 1, Neutrophils # (Auto) 5.1, Lymphocytes # (Auto) 1.4, Monocytes # (Auto) 0.7, Eosinophils # (Auto) 0.2, Basophils # (Auto) 0.0, Sodium Level 133, Potassium Level 4.8, Chloride Level 108, Carbon Dioxide Level 17, Anion Gap 8, Blood Urea Nitrogen 44, Creatinine 1.83, Estimat Glomerular Filtration Rate 35, BUN/ Creatinine Ratio 24, Glucose Level 91, Calcium Level 8.5, Phosphorus Level 3.8, Magnesium Level 1.9, Total Bilirubin 0.6, Aspartate Amino Transf (AST/SGOT) 14, Alanine Aminotransferase (ALT/SGPT) 20, Alkaline Phosphatase 78, Troponin I < 0.30, Total Protein 6.0, Albumin 3.4, Thyroid Stimulating Hormone (TSH) 3.03 07/09/17 02:53: Urine Color YELLOW, Urine Clarity CLEAR, Urine pH 6, Urine Specific [place] 1.005, Urine Protein NEGATIVE, Urine Glucose (UA) NEGATIVE, Urine Ketones NEGATIVE, Urine Nitrite NEGATIVE, Urine Bilirubin NEGATIVE, Urine Urobilinogen NORMAL, Urine Leukocyte Esterase NEGATIVE, Urine RBC (Auto) NEGATIVE, Urine RBC NONE, Urine WBC NONE, Urine Squamous Epithelial Cells NONE, Urine Crystals NONE , Urine Bacteria NEGATIVE, Urine Casts NONE, Urine Mucus NEGATIVE, Urine Culture Indicated NO 07/09/17 05:35: Glucometer 86 07/09/17 11:22: Glucometer 148 07/09/17 16:11: Glucometer 156 07/09/17 20:28: Glucometer 156 07/10/17 05:31: Glucometer 81 07/10/17 05:36: White Blood Count 7.2, Red Blood Count 3.71, Hemoglobin 11.2, Hematocrit 35, Mean Corpuscular Volume 94, Mean Corpuscular Hemoglobin 30, Mean Corpuscular Hemoglobin Concent 32, Red Cell Distribution Width 15.0, Platelet Count 166, Mean Platelet Volume 11.1, Sodium Level 138, Potassium Level 5.9, Chloride Level 116, Carbon Dioxide Level 16, Anion Gap 6, Blood Urea Nitrogen 46, Creatinine 1.85, Estimat Glomerular Filtration Rate 35, BUN/Creatinine Ratio 25 , Glucose Level 75, Calcium Level 8.5, Magnesium Level 2.0, Total Bilirubin 0.6 , Aspartate Amino Transf (AST/SGOT) 16, Alanine Aminotransferase (ALT/SGPT) 22, Alkaline Phosphatase 71, Total Protein 5.9, Albumin 3.4 07/10/17 08:37: Sodium Level 138, Potassium Level 6.1, Chloride Level 115, Carbon Dioxide Level 17, Anion Gap 6, Blood Urea Nitrogen 46, Creatinine 1.79, Estimat Glomerular Filtration Rate 36, BUN/Creatinine Ratio 26, Glucose Level 80, Calcium Level 8.6 07/10/17 10:46: Glucometer 85 Discussion & Recommendations Patient transferred to hospitalist at [facility] in [place]. Hospitalist accepted patient Discharge Home Medications: Active Scripts Active Reported Tylenol (Acetaminophen) 325 Mg Tablet 325 Mg PO Q6H PRN Imodium A-D (Loperamide HCl) 2 Mg Tablet PO UD PRN TAKE 2 AFTER 1ST LOOSE STOOL THEN 1 AFTER EACH LOOSE STOOL (MAX 4 IN 24 HOURS) Clopidogrel (Clopidogrel Bisulfate) 75 Mg Tablet 75 Mg PO 1999 Pantoprazole Sodium 40 Mg Tablet.dr 40 Mg PO 0700 Meclizine HCl 25 Mg Tablet 25 Mg PO TID PRN Gabapentin 300 Mg Capsule 900 Mg PO 1999 TAKES 3 (300 MG) CAPSULES Metoprolol Tartrate 50 Mg Tablet 50 Mg PO 0800,1999 Glimepiride 4 Mg Tablet 4 Mg PO 0800,1999 Aspirin EC (Aspirin) 81 Mg Tablet.dr 81 Mg PO 2000 Allopurinol 100 Mg Tablet 100 Mg PO 0800,1999 Irbesartan 150 Mg Tablet 150 Mg PO 1999 Lovastatin 40 Mg Tablet 40 Mg PO 1999 Tamsulosin HCl 0.4 Mg Cap.er.24h 0.4 Mg PO 1730 Finasteride 5 Mg Tablet 5 Mg PO 0800 Gabapentin 600 Mg Tablet 600 Mg PO 0700,1400 Instructions to patient/family Please see electronic discharge instructions given to patient. Clinical Quality Measures DVT/VTE Risk/Contraindication: Risk Factor Score Per Nursin RFS Level Per Nursing on Admit: 3=High Contraindications-Pharm: Other *list below* GOLDY HINOJOSA DO Jul 11, 2017 08:42
== END 2017-07-10 12:48 | disposition short-term general hospital (02) | DRG 682 ==
LOC: EDUNIT# 01:47 → ER 01:49 → 4TH 03:30 → UNDOADMOB 03:30 → 4TH 04:01 → OBSVTOIN 07-10 10:00 → INTOOBSV 07-10 10:00 → UNDODISIN 07-10 10:34
PROVIDERS: ADMIT Family Medicine; ATTEND Family Medicine
DX: N17.9 Acute kidney failure, unspecified (principal); J18.9 Pneumonia, unspecified organism; E87.2 Acidosis; E87.5 Hyperkalemia; I44.1 Atrioventricular block, second degree; R25.8 Other abnormal involuntary movements; I12.9 Hypertensive chronic kidney disease with stage 1 through stage 4 chronic kidney disease, or unspecified chronic kidney disease; N18.9 Chronic kidney disease, unspecified; E11.21 Type 2 diabetes mellitus with diabetic nephropathy; E11.43 Type 2 diabetes mellitus with diabetic autonomic (poly)neuropathy; I25.10 Atherosclerotic heart disease of native coronary artery without angina pectoris; E78.5 Hyperlipidemia, unspecified; N40.1 Benign prostatic hyperplasia with lower urinary tract symptoms; R33.8 Other retention of urine; R30.0 Dysuria; K21.9 Gastro-esophageal reflux disease without esophagitis; E11.621 Type 2 diabetes mellitus with foot ulcer; L97.519 Non-pressure chronic ulcer of other part of right foot with unspecified severity; M19.91 Primary osteoarthritis, unspecified site; G47.30 Sleep apnea, unspecified; M10.9 Gout, unspecified; M21.371 Foot drop, right foot; M21.372 Foot drop, left foot; D64.9 Anemia, unspecified; Z95.5 Presence of coronary angioplasty implant and graft
CPT/HCPCS: 36415; 51702; 70450; 71045; 80048; 80053; 81000; 82962; 83735; 84100; 84443; 84484; 85025; 85027; 93005; 93041; 93306; G0378

== ENCOUNTER 2017-09-19 20:20 | Emergency (ER) | payer MEDICARE, OTHER ==
[~2017-09-19] VITALS: Ht 170.2 cm; Wt 94.3 kg
[~2017-09-19 20:20] MED LIST changes: +ACET325T38 PO; +LOPE-134 PO; +MECL-106 PO; +PANT40TA3 PO; +SITA100T12 PO
--- NOTE | 2017-09-19 21:24 | ED Fall/Injury ---
General Chief Complaint: Lower Extremity Stated Complaint: FALL/R FOOT INJ Nursing Triage Note: pt states he slipped in shower and hit right ankle, has screws and is hurting in that area. Denies hitting head or any other injuries Source: patient Exam Limitations: no limitations History of Present Illness Date Seen by Provider: Sep 19, 2017 Time Seen by Provider: 21:12 Initial Comments The patient presents to the ER by private conveyance with his and a chief complaint that he was in the shower and stumbled twisting his right ankle. He did not strike his head nor lose consciousness nor fall completely. He has a history of fracture to his right ankle with stirrup repair with screws. Historically in the last several years this bruise of been making her way out of the skin. He scraped up the edge of the wound where the scar is in the screws exposed. He has a history of peripheral neuropathy and therefore does not have much sensation of pain. He says it does not hurt to move her stand on it. He wanted to get an x-ray of his ankle to make sure was not broken. The surgeon who did the surgery was Dr. Kang out of [place], [place]. He has not taken anything for the pain today and does not want anything right now. No nausea fevers chills dysuria cough or shortness of breath. Allergies and Home Medications Allergies Coded Allergies: metformin (Unverified Adverse Reaction, Mild, 05/24/12) Home Medications Acetaminophen 325 Mg Tablet, 325 MG PO Q6H PRN for TEMP>100, (Reported) Allopurinol 100 Mg Tablet, 100 MG PO 0800,1999, (Reported) Aspirin 81 Mg Tablet.dr, 81 MG PO 1999, (Reported) Clopidogrel Bisulfate 75 Mg Tablet, 75 MG PO 1999, (Reported) Finasteride 5 Mg Tablet, 5 MG PO 0800, (Reported) Gabapentin 600 Mg Tablet, 600 MG PO 0700,1400, (Reported) Gabapentin 300 Mg Capsule, 900 MG PO 1999, (Reported) TAKES 3 (300 MG) CAPSULES Glimepiride 4 Mg Tablet, 4 MG PO 0800,1999, (Reported) Irbesartan 150 Mg Tablet, 150 MG PO 1999, (Reported) Loperamide HCl 2 Mg Tablet, PO UD PRN for LOOSE STOOLS, (Reported) TAKE 2 AFTER 1ST LOOSE STOOL THEN 1 AFTER EACH LOOSE STOOL (MAX 4 IN 24 HOURS ) Lovastatin 40 Mg Tablet, 40 MG PO 1999, (Reported) Meclizine HCl 25 Mg Tablet, 25 MG PO TID PRN for DIZZINESS, (Reported) Metoprolol Tartrate 50 Mg Tablet, 50 MG PO 0800,1999, (Reported) Pantoprazole Sodium 40 Mg Tablet.dr, 40 MG PO 0700, (Reported) Sitagliptin Phosphate 100 Mg Tablet, 100 MG PO 1999, (Reported) Tamsulosin HCl 0.4 Mg Cap.er.24h, 0.4 MG PO 1730, (Reported) Patient Home Medication List Home Medication List Reviewed: Yes Review of Systems Constitutional: No chills, No diaphoresis Eyes: Denies Blindness, Denies Drainage Ears, Nose, Mouth, Throat: denies ear pain, denies nose pain Respiratory: No cough, No short of breath, No wheezing Cardiovascular: No chest pain, No palpitations Gastrointestinal: No abdominal pain, No diarrhea, No nausea Genitourinary: No discharge, No dysuria Musculoskeletal: see HPI; No back pain; joint pain Past [id number]-[id number] Hx Patient Social History Alcohol Use: Denies Use Recreational Drug Use: No Smoking Status: Former Smoker Former Smoker, Quit: Jul 10, 1991 Recent Foreign Travel: No Contact w/Someone Who Travel: No Recent Infectious Disease Expo: No Recent Hopitalizations: Yes Physical Abuse: No Sexual Abuse: No Immunizations Up To Date Tetanus Booster (TDap): Unknown Date of Pneumonia Vaccine: Dec 18, 2013 Date of Influenza Vaccine: Dec 18, 2016 Seasonal Allergies Seasonal Allergies: No Past Medical History Surgeries: Yes (R foot screw, ) Appendectomy, Coronary Stent, Gallbladder, Orthopedic, Tonsillectomy Respiratory: No Sleep Apnea Currently Using CPAP: Yes Cardiac: Yes Coronary Artery Disease, High Cholesterol, Hypertension Neurological: Yes Neuropathy Reproductive Disorders: No Genitourinary: Yes (urinary retention) Kidney Stones Gastrointestinal: Yes Gastroesophageal Reflux Musculoskeletal: Yes (SCREWS PLACED IN RIGHT ANKLE > 15 YRS AGO) Arthritis, Foot Drop, Gout Endocrine: Yes Diabetes, Non-Insulin dep Cataract Loss of Vision: Denies Hearing Impairment: Hard of Hearing Cancer: No Psychosocial: No Nursing Suicide Risk Score: 0 Integumentary: No Blood Disorders: No Family Medical History Patient reports no known family medical history. Physical Exam Vital Signs Vital Signs - First Documented 09/19/17 21:07 Temp 97.0 Pulse 78 Resp 15 B/P (MAP) 145/78 (100) Pulse Ox 97 O2 Delivery Room Air Capillary Refill : Less Than 3 Seconds General Appearance: WD/WN, no apparent distress HEENT: PERRL/EOMI, pharynx normal Neck: non-tender, full range of motion Cardiovascular: normal peripheral pulses, regular rate, rhythm Respiratory: no respiratory distress, no accessory muscle use Peripheral Pulses: 1+ Dorsalis Pedis (R), 1+ Left Dors-Pedis (L) Extremities: non-tender (less than 2 seconds), normal capillary refill, other ( chronic dusky colored toes. Capillary refill is less than 2 seconds. There is limited range of motion in the foot which the patient says is chronic for years. There is a small abrasion over the scar on the medial malleoli of the right ankle with tenderness to palpation around the medial [place] lower by compressing the tibia-fibula distal heads.) Neurologic/Psychiatric: alert, normal mood/affect, oriented x 3, sensory deficit (decreased sensation in the toes) Huong Coma Score Best Eye Response: (4) Open Spontaneously Best Verbal Response: (5) Oriented Best Motor Response: (6) Obeys Commands [place] Total: 15 Progress/Results/Core Measures Results/Orders My Orders Orders - SHARON WEAVER Ankle, Right, 3 Views (09/19/17 21:20) Vital Signs/I&O 09/19/17 21:07 Temp 97.0 Pulse 78 Resp 15 B/P (MAP) 145/78 (100) Pulse Ox 97 O2 Delivery Room Air Blood Pressure Mean: 100 Progress Progress Note : Time: 21:24 Progress Note He is declining any pain medicine. We'll get an x-ray and CT have an old x-ray to compare to. Probably we can give him stabilized and if there seems to be any new acute fracture we can get him in a boot or a splint and have him follow-up with Dr. Kang outpatient. Diagnostic Imaging Diagonstic Imaging: Xray Plain Films/CT/US/NM/MRI: ankle Comments Unchanged right ankle since May 2017. No new acute fractures. Screws are still in good place. Hardware not broken. 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 Decision time for Depature: 22:08 Referrals: MARY HINES MD (PCP/Family) Primary Care Physician Patient Instructions: Ankle Sprain (DC) Add. Discharge Instructions: Use Tylenol 1000 mg every 8 hours for pain as needed. Keep the ankle wrapped with the Alex bandage and elevated above the level of your heart when possible for swelling. Apply ice for 20 minutes every 2-4 hours for the first 3 or 4 days. Follow up with your orthopedic surgeon within the next week if you're not seeing some improvement. All discharge instructions reviewed with patient and/or family. Voiced understanding. Copy Copies To 1: MARY HINES MD; BRE KANG TITUS J Sep 19, 2017 21:24
--- NOTE | 2017-09-19 22:10 | Diagnostic Imaging Report ---
EXAMINATION: Right ankle series INDICATION: Fall. Ankle pain. Prior ankle surgery. Correlation made with prior foot radiographs of 05/23/2017. FINDINGS: There are prior surgical changes of plate and screw fixation of the distal fibula. There is a prior suture anchor at the medial malleolus. There is no hardware complication evident. Alignment appears unchanged. There is no evidence of an acute fracture. There are advanced tibiotalar arthritic changes. There also are some arthritic change within the hindfoot and the bones appear osteoporotic. IMPRESSION: 1. Prior right ankle surgery as described. There is no malalignment or evidence of an acute fracture or hardware complication. There are advanced tibial talar and hindfoot arthritic changes. The bones appear osteoporotic. Dictated by: Dictated on workstation # [id number]
[2017-09-19] MEDS ORDERED: ACHD5005 PO (22:19)
[2017-09-19 22:24] VITALS: BP 145/78
[2017-09-19] MEDS ORDERED: HYDROcodone/APAP 5 MG/325 MG (LORTAB) TAB PO ONE (22:30)
== END 2017-09-19 22:24 | disposition home or self-care (01) ==
LOC: EDUNIT# 20:20 → ER 20:21
DX: S93.401A Sprain of unspecified ligament of right ankle, initial encounter (principal); I44.0 Atrioventricular block, first degree; R33.9 Retention of urine, unspecified; R40.2142 Coma scale, eyes open, spontaneous, at arrival to emergency department; R40.2252 Coma scale, best verbal response, oriented, at arrival to emergency department; R40.2362 Coma scale, best motor response, obeys commands, at arrival to emergency department; G47.30 Sleep apnea, unspecified; I25.10 Atherosclerotic heart disease of native coronary artery without angina pectoris; E78.00 Pure hypercholesterolemia, unspecified; I10 Essential (primary) hypertension; M10.9 Gout, unspecified; K21.9 Gastro-esophageal reflux disease without esophagitis; Z87.442 Personal history of urinary calculi; Z90.49 Acquired absence of other specified parts of digestive tract; Z90.89 Acquired absence of other organs; Z79.82 Long term (current) use of aspirin; Z88.8 Allergy status to other drugs, medicaments and biological substances; Z96.7 Presence of other bone and tendon implants; X50.1XXA Overexertion from prolonged static or awkward postures, initial encounter
CPT/HCPCS: 73610

== ENCOUNTER 2018-08-21 07:25 | Emergency (ER) | payer MEDICARE, OTHER ==
[~2018-08-21] VITALS: Ht 170.2 cm; Wt 96.2 kg
[~2018-08-21 07:25] MED LIST changes: -AMLO5TAB9 PO; -CHOL10007 PO; -CYAN10006 PO; -GABA-486 PO; -L.AC1CAP6 PO; -PRAV40TA2 PO; -TAMS0.4C98 PO
[2018-08-21] MEDS ORDERED: NS IV 1000 ML 1,000 ML IV SCH ×2 (07:44→08:31)
--- NOTE | 2018-08-21 07:50 | ED General ---
General Chief Complaint: General Problems/Pain Stated Complaint: DEHYDRATION Source of Information: Patient Exam Limitations: No Limitations History of Present Illness Date Seen by Provider: August 21, 2018 Time Seen by Provider: 07:40 Initial Comments The patient presents to ER with his with chief complaint that he is been experiencing diarrhea for the past 10 days off and on and started Flagyl which slowed it down as well as Imodium. He then began having some facial tics last night she has associated with dehydration. He started drinking Gatorade last night but it did not improve it. He has a history of diabetes. He is not having any chest pain palpitations flutters shortness of breath nausea vomiting. He did have a bowel movement and was able urinate today but for the past couple days she's noticed is been very dark and infrequent. Allergies and Home Medications Allergies Coded Allergies: metformin (Unverified Adverse Reaction, Mild, 05/24/12) Home Medications Acetaminophen 325 Mg Tablet, 325 MG PO Q6H PRN for TEMP>100, (Reported) Allopurinol 100 Mg Tablet, 100 MG PO 0800,1999, (Reported) Aspirin 81 Mg Tablet.dr, 81 MG PO 1999, (Reported) Clopidogrel Bisulfate 75 Mg Tablet, 75 MG PO 2000, (Reported) Finasteride 5 Mg Tablet, 5 MG PO 0800, (Reported) Gabapentin 600 Mg Tablet, 600 MG PO 0700,1400, (Reported) Gabapentin 300 Mg Capsule, 900 MG PO 1999, (Reported) TAKES 3 (300 MG) CAPSULES Glimepiride 4 Mg Tablet, 4 MG PO 0800,1999, (Reported) Hydrocodone Bit/Acetaminophen 1 Tab Tab, 1 EACH PO Q6H PRN for BREAKTHROUGH PAIN Prescribed by: SHARON WEAVER on 09/19/172218 Irbesartan 150 Mg Tablet, 150 MG PO 2000, (Reported) Loperamide HCl 2 Mg Tablet, PO UD PRN for LOOSE STOOLS, (Reported) TAKE 2 AFTER 1ST LOOSE STOOL THEN 1 AFTER EACH LOOSE STOOL (MAX 4 IN 24 HOURS) Lovastatin 40 Mg Tablet, 40 MG PO 2000, (Reported) Meclizine HCl 25 Mg Tablet, 25 MG PO TID PRN for DIZZINESS, (Reported) Metoprolol Tartrate 50 Mg Tablet, 50 MG PO 0800,1999, (Reported) Pantoprazole Sodium 40 Mg Tablet.dr, 40 MG PO 0700, (Reported) Sitagliptin Phosphate 100 Mg Tablet, 100 MG PO 1999, (Reported) Tamsulosin HCl 0.4 Mg Cap.er.24h, 0.4 MG PO 1730, (Reported) Patient Home Medication List Home Medication List Reviewed: Yes Review of Systems Review of Systems Constitutional: No chills, No diaphoresis EENTM: No ear discharge, No ear pain Respiratory: No cough, No short of breath Cardiovascular: No chest pain, No edema Gastrointestinal: No abdominal pain, No constipation, No diarrhea, No nausea Genitourinary: No discharge, No dysuria Musculoskeletal: No back pain, No joint pain Skin: No pruritus, No rash Psychiatric/Neurological: Denies Headache, Denies Numbness Past Zyfvhvo-[id number]-[id number] Hx Patient Social History Alcohol Use: Denies Use Recreational Drug Use: No Former Smoker, Quit: Jul 10, 1991 Recent Foreign Travel: No Contact w/Someone Who Travel: No Recent Hopitalizations: Yes Immunizations Up To Date Tetanus Booster (TDap): Unknown Date of Pneumonia Vaccine: Dec 18, 2013 Date of Influenza Vaccine: Dec 06, 2017 Seasonal Allergies Seasonal Allergies: No Past Medical History Surgeries: Yes (R foot screw, ) Appendectomy, Coronary Stent, Gallbladder, Orthopedic, Tonsillectomy Respiratory: No Sleep Apnea Currently Using CPAP: Yes Cardiac: Yes Coronary Artery Disease, High Cholesterol, Hypertension Neurological: Yes Neuropathy Reproductive Disorders: No Genitourinary: Yes (urinary retention) Kidney Stones Gastrointestinal: Yes Gastroesophageal Reflux Musculoskeletal: Yes (SCREWS PLACED IN RIGHT ANKLE > 15 YRS AGO) Arthritis, Foot Drop, Gout Endocrine: Yes Diabetes, Non-Insulin dep Cataract Loss of Vision: Denies Hearing Impairment: Hard of Hearing Cancer: No Psychosocial: No Integumentary: No Blood Disorders: No Family Medical History Patient reports no known family medical history. Physical Exam Vital Signs Vital Signs - First Documented 08/21/18 07:30 Temp 96.9 Pulse 89 Resp 20 B/P (MAP) 116/77 (90) Pulse Ox 100 Capillary Refill : Height, Weight, BMI Height: 5'7.00" Weight: 208lbs. 0.0oz. [id number]; 33.7 BMI Method:Stated General Appearance: No Apparent Distress, WD/WN Eyes: Bilateral Eye Normal Inspection, Bilateral Eye PERRL, Bilateral Eye EOMI HEENT: Pharynx Normal, Moist Mucous Membranes Neck: Normal Inspection, Non Tender Respiratory: No Accessory Muscle Use, No Respiratory Distress Cardiovascular: Regular Rate, Rhythm, Normal Peripheral Pulses Gastrointestinal: Normal Bowel Sounds, Non Tender, Soft Extremity: Normal Capillary Refill, Normal Inspection Neurologic/Psychiatric: Alert, Oriented x3, Other (intermittent, occasional facial tic) Skin: Normal Color, Warm/Dry Progress/Results/Core Measures Suspected Sepsis SIRS Temperature: Pulse: Respiratory Rate: Laboratory Tests 08/21/18 07:50: White Blood Count 6.7 Blood Pressure / Mean: Laboratory Tests 08/21/18 07:50: Creatinine 1.18, Platelet Count 220, Total Bilirubin 0.5 Results/Orders Lab Results Laboratory Tests Test 08/21/18 07:50 08/21/18 08:25 Range/Units White Blood Count 6.7 4.3-11.0 10^3/uL Red Blood Count 4.01 L 4.35-5.85 10^6/uL Hemoglobin 12.4 L 13.3-17.7 G/DL Hematocrit 36 L 40-54 % Mean Corpuscular Volume 90 80-99 FL Mean Corpuscular Hemoglobin 31 25-34 PG Mean Corpuscular Hemoglobin Concent 34 32-36 G/DL Red Cell Distribution Width 14.9 H 10.0-14.5 % Platelet Count 220 130-400 10^3/uL Mean Platelet Volume 9.8 7.4-10.4 FL Neutrophils (%) (Auto) 56 42-75 % Lymphocytes (%) (Auto) 32 12-44 % Monocytes (%) (Auto) 8 0-12 % Eosinophils (%) (Auto) 3 0-10 % Basophils (%) (Auto) 1 0-10 % Neutrophils # (Auto) 3.8 1.8-7.8 X 10^3 Lymphocytes # (Auto) 2.2 1.0-4.0 X 10^3 Monocytes # (Auto) 0.6 0.0-1.0 X 10^3 Eosinophils # (Auto) 0.2 0.0-0.3 10^3/uL Basophils # (Auto) 0.1 0.0-0.1 10^3/uL Sodium Level 135 135-145 MMOL/L Potassium Level 3.7 3.6-5.0 MMOL/L Chloride Level 103 98-107 MMOL/L Carbon Dioxide Level 24 21-32 MMOL/L Anion Gap 8 5-14 MMOL/L Blood Urea Nitrogen 22 H 7-18 MG/DL Creatinine 1.18 0.60-1.30 MG/DL Estimat Glomerular Filtration Rate 59 BUN/Creatinine Ratio 19 Glucose Level 205 H 70-105 MG/DL Calcium Level 8.8 8.5-10.1 MG/DL Corrected Calcium 9.2 8.5-10.1 MG/DL Total Bilirubin 0.5 0.1-1.0 MG/DL Aspartate Amino Transf (AST/SGOT) 36 H 5-34 U/L Alanine Aminotransferase (ALT/SGPT) 69 H 0-55 U/L Alkaline Phosphatase 53 40-136 U/L Total Protein 6.0 L 6.4-8.2 GM/DL Albumin 3.5 3.2-4.5 GM/DL Urine Color YELLOW Urine Clarity CLEAR Urine pH 6.5 5-9 Urine Specific [place] 1.010 L 1.016-1.022 Urine Protein NEGATIVE NEGATIVE Urine Glucose (UA) NEGATIVE NEGATIVE Urine Ketones NEGATIVE NEGATIVE Urine Nitrite NEGATIVE NEGATIVE Urine Bilirubin NEGATIVE NEGATIVE Urine Urobilinogen NORMAL NORMAL MG/DL Urine Leukocyte Esterase NEGATIVE NEGATIVE Urine RBC (Auto) 5+ H NEGATIVE Urine RBC 2-5 H /HPF Urine WBC NONE /HPF Urine Squamous Epithelial Cells NONE /HPF Urine Crystals NONE /LPF Urine Bacteria NEGATIVE /HPF Urine Casts NONE /LPF Urine Mucus NEGATIVE /LPF Urine Culture Indicated NO My Orders Orders - SHARON WEAVER Cbc With Automated Diff (08/21/18 07:44) Comprehensive Metabolic Panel (08/21/18 07:44) Ua Culture If Indicated (08/21/18 07:44) Ed Iv/Invasive Line Start (08/21/18 07:44) Ns Iv 1000 Ml (Sodium Chloride 0.9%) (08/21/18 07:44) Ed Iv/Invasive Line Start (08/21/18 08:31) Ns Iv 1000 Ml (Sodium Chloride 0.9%) (08/21/18 08:31) General/Regular (08/21/18 Breakfast) Vital Signs/I&O 08/21/18 07:30 Temp 96.9 Pulse 89 Resp 20 B/P (MAP) 116/77 (90) Pulse Ox 100 Capillary Refill : Progress Note : Time: 09:30 Progress Note Despite 2 L of fluid the patient still very weak and says that he has a hard time standing. Could not get orthostatics because he was unstable on his feet. At baseline uses a walker. We discussed possibility of an ARU admission for physical therapy and rehabilitation secondary to dehydration secondary to diarrhea. The patient is okay with this plan. We'll have staff come down and evaluate him. There is a few red blood cells seen on UA, microscopic hematuria most likely secondary to the straight catheter. Initial straight catheter she only obtained about 100 cc of urine. Departure Communication (Admissions) Time/Spoke to Admitting Phy: 09:45 Dr. Pérez is willing to admit the patient to the acute rehabilitation unit with Dr. Spaulding as a consult. She will write the orders as soon as we admit the patient. Communication (PCP) Discussed the case with Dr. Spaulding she says the patient was seen in the clinic on the and given Flagyl. He has a history of chronic diarrhea. She be willing to consult if Dr. Pérez would be willing to admit to the ARU. Impression Primary Impression: Fatigue Qualified Codes: R53.83 - Other fatigue Additional Impressions: Chronic diarrhea Physical debility Mild dehydration Disposition: ADMITTED INPATIENT Condition: Stable Admissions Decision to Admit Reason: Admit from ER (General) (ARU) Decision to Admit/Date: August 21, 2018 Time/Decision to Admit Time: 09:40 Departure-Patient Inst. Referrals: MARY SPAULDING MD (PCP/Family) Primary Care Physician SHARON WEAVER August 21, 2018 07:49
--- NOTE | 2018-08-21 08:00 | NUR ---
called to room to assist patient to use the restroom, patient unable to stand at this time, assisted with the urinal with no result
[2018-08-21 08:01] LABS: BASOPHILS # (AUTO) 0.1 10^3/uL (0.0-0.1); BASOPHILS % (AUTO) 1 % (0-10); EOSINOPHILS # (AUTO) 0.2 10^3/uL (0.0-0.3); EOSINOPHILS % (AUTO) 3 % (0-10); HEMATOCRIT 36 % (40-54); HEMOGLOBIN 12.4 G/DL (13.3-17.7); LYMPHOCYTES # (AUTO) 2.2 X 10^3 (1.0-4.0); LYMPHOCYTES % (AUTO) 32 % (12-44); MEAN CORPUSCULAR HEMOGLOBIN 31 PG (25-34); MEAN CORPUSCULAR HGB CONC 34 G/DL (32-36); MEAN CORPUSCULAR VOLUME 90 FL (80-99); MEAN PLATELET VOLUME 9.8 FL (7.4-10.4); MONOCYTES # (AUTO) 0.6 X 10^3 (0.0-1.0); MONOCYTES % (AUTO) 8 % (0-12); NEUTROPHILS # (AUTO) 3.8 X 10^3 (1.8-7.8); NEUTROPHILS % (AUTO) 56 % (42-75); PLATELET COUNT 220 10^3/uL (130-400); RED CELL DISTRIBUTION WIDTH 14.9 % (10.0-14.5); WHITE BLOOD COUNT 6.7 10^3/uL (4.3-11.0)
--- NOTE | 2018-08-21 08:15 | NUR ---
patient called to try to urinate, pateint stood at side of bed with 2 assist, unable to void at this time. patient requires assistance to lift feet in to bed and is unable to do simple tasks like pull up own pants or work zipper.
[2018-08-21 08:17] LABS: ALBUMIN 3.5 GM/DL (3.2-4.5); BILIRUBIN,TOTAL 0.5 MG/DL (0.1-1.0); CALCIUM 8.8 MG/DL (8.5-10.1); CREATININE SERUM 1.18 MG/DL (0.60-1.30); POTASSIUM 3.7 MMOL/L (3.6-5.0)
--- NOTE | 2018-08-21 08:45 | NUR ---
patient calls to room asks to be pulled up in bed, complains of burning with urination. this RN explains that inserting the catheter can cause burning. patient is pulled up in bed by this RN and Coco MCKINNEY. patient verbalizes "that is much better" when asked if the burning has stopped patient states "yes"
[2018-08-21 08:52] LABS: BILIRUBIN,URINE NEGATIVE (NEGATIVE); GLUCOSE, URINE (UA) NEGATIVE (NEGATIVE); KETONES,URINE NEGATIVE (NEGATIVE); LEUKOCYTE ESTERASE ,URINE NEGATIVE (NEGATIVE); NITRITE,URINE NEGATIVE (NEGATIVE); PH,URINE 6.5 (5-9); PROTEIN,URINE NEGATIVE (NEGATIVE); UROBILINOGEN,URINE NORMAL (NORMAL)
[2018-08-21 08:53] LABS: BACTERIA,URINE NEGATIVE /HPF; CLARITY,URINE CLEAR; COLOR,URINE YELLOW
--- NOTE | 2018-08-21 09:10 | NUR ---
call light activated patient asking for something to drink, water offered. patient verbalizes he is unable to hold the cup or use the straw without assistance, offers to hold cup for patient . Dr astudillo
--- NOTE | 2018-08-21 09:30 | NUR ---
patient being evaluated for admission to rehab
--- OUTSIDE RECORDS SUMMARY | 2018-08-21 10:13 | XMS REPORT | CCD ---
Author Author Geneva Case MD, [facility] Address [address] [place] [address] Phone Care Team Providers Care [employer] Name Role Phone PP Unavailable CCM Unavailable Summary Purpose Interface Exchange Insurance Providers Payer name Policy type / Coverage type Covered republican ID Effective Begin Date Effective End Date WPS Medicare Part B Medicare Part B [id number] Unknown [facility] Medicare Part B [id number] Unknown Family history Mother Diagnosis Age At Onset No Known Diseases N/A Father Diagnosis Age At Onset No Known Diseases N/A Social History Social History Element Codes Description Effective Dates Living arrangements Unknown Assisted Living [place] 11/28/2017 Marital status Unknown 07/23/2017 Employment Unknown Retired 07/23/2017 Allergies, Adverse Reactions, Alerts Substance Reaction Codes Entered Date Inactivated Date Status * OTHER REACTION - SEE ANSWER BOX Metformin Unknown 07/23/2017 No Inactive Date Active Past Medical History Illness Codes Condition Status Onset Date Resolved Date Chronic kidney disease, stage 3 (moderate) ICD-9: 585.3 ICD-10: N18.3 Active 07/23/2017 Unknown Diarrhea, unspecified ICD- 9: 787.91 ICD-10: R19.7 Active 02/27/2018 Unknown Muscle weakness (generalized) ICD-9: 728.87 ICD-10: M62.81 Active 07/23/2017 Unknown Type 2 diabetes mellitus with hyperglycemia ICD-9: 250.02 ICD-10: E11.65 Active 07/23/2017 Unknown Essential (primary) hypertension ICD-9: 401.1 ICD-10: I10 Active 07/23/2017 Unknown Primary generalized (osteo)arthritis ICD-9: 715.09 ICD-10: M15.0 Active 05/29/2018 Unknown Cervicalgia ICD-9: 723.1 ICD-10: M54.2 Active 11/28/2017 Unknown Foot drop, left foot ICD- 9: 736.79 ICD-10: M21.372 Active 08/29/2017 Unknown Problems Condition Codes Effective Dates Condition Status Chronic kidney disease, stage 3 (moderate) ICD-9: 585.3 ICD-10: N18.3 07/23/2017 Active Diarrhea, unspecified ICD- 9: 787.91 ICD-10: R19.7 02/27/2018 Active Muscle weakness (generalized) ICD-9: 728.87 ICD-10: M62.81 07/23/2017 Active Type 2 diabetes mellitus with hyperglycemia ICD-9: 250.02 ICD-10: E11.65 07/23/2017 Active Essential (primary) hypertension ICD-9: 401.1 ICD-10: I10 07/23/2017 Active Primary generalized (osteo)arthritis ICD-9: 715.09 ICD-10: M15.0 05/29/2018 Active Cervicalgia ICD-9: 723.1 ICD-10: M54.2 11/28/2017 Active Foot drop, left foot ICD- 9: 736.79 ICD-10: M21.372 08/29/2017 Active Medications Medication Codes Instructions Start Date Stop Date Status Fill Instructions loperamide 2 mg tablet RxNorm: 013751 2 after 1st stool & 1 after each add/max 4 in 24 hours Tablet(s) PO 08/12/2018 12/09/2018 Active Vitamin D3 1,000 unit tablet RxNorm: 480475 1 Tablet(s) PO daily 07/22/2018 06/16/2019 Active amlodipine 5 mg tablet RxNorm: 418978 TAKE ONE TABLET BY MOUTH DAILY 07/01/2018 06/25/2019 Active Generic For:NORVASC 5MG 06/30/2018 1:40:01 PM gabapentin 100 mg capsule RxNorm: 579289 TAKE 1 CAPSULE BY MOUTH THREE TIMES DAILY 07/01/2018 01/26/2019 Active Generic For:NEURONTIN 100MG 06/30/2018 1:39:54 PM Tylenol 325 mg tablet RxNorm: 211714 TAKE 1 TABLET BY MOUTH TWICE DAILY 06/17/2018 06/11/2019 Active Generic For:TYLENOL 325MG 06/17/2018 12:45:03 PM diclofenac 1 % topical gel RxNorm: 347874 APPLY 2 GRAMS TOP TO HANDS FOUR TIMES DAILY BILATERALLY 06/10/2018 10/07/2018 Active diclofenac 1 % topical gel RxNorm: 740033 APPLY 2 GRAMS TOP TO HANDS FOUR TIMES DAILY BILATERALLY 06/10/2018 06/09/2018 Inactive Protonix 40 mg tablet,delayed release RxNorm: 160916 TAKE 1 TABLET BY MOUTH EVERY MORNING 06/09/2018 10/06/2018 Active Generic For:PROTONIX 40MG 06/09/2018 2:16:07 PM tamsulosin 0.4 mg capsule RxNorm: 095660 TAKE 1 CAPSULE BY MOUTH ONCE DAILY 06/04/2018 05/29/2019 Active Generic For:FLOMAX 0.4MG 06/03/2018 4:14:32 PM N O T I C E Last quantity doesn't match original quantity glimepiride 2 mg tablet RxNorm: 700167 TAKE 1 TABLET BY MOUTH ONCE DAILY 05/26/2018 04/20/2019 Active Generic For:AMARYL 2MG 05/26/2018 1:31:32 PM Floranex 100 million cell oral granules in packet RxNorm: 1 Tablet(s) PO daily 05/23/2018 09/19/2018 Active Floranex 100 million cell oral granules in packet RxNorm: 1 Tablet(s) PO daily 05/23/2018 05/22/2018 Inactive Proscar 5 mg tablet RxNorm: 003436 TAKE 1 TABLET BY MOUTH ONCE DAILY 05/05/2018 10/31/2018 Active Generic For:PROSCAR 5MG 05/05/2018 9:23:48 AM gabapentin 100 mg capsule RxNorm: 342781 TAKE 1 CAPSULE BY MOUTH THREE TIMES DAILY 04/07/2018 06/30/2018 Inactive Generic For:NEURONTIN 100MG 04/07/2018 10:37:42 AM allopurinol 100 mg tablet RxNorm: 163093 TAKE 1 TABLET BY MOUTH TWICE DAILY 03/20/2018 09/15/2018 Active 03/19/2018 9:53:25 AM pravastatin 40 mg tablet RxNorm: 579625 TAKE ONE TABLET BY MOUTH EVERY NIGHT AT BEDTIME 03/13/2018 09/08/2018 Active Generic For:PRAVACHOL 40MG 03/13/2018 9:02:23 AM N O T I C E Last quantity doesn't match original quantity Protonix 40 mg tablet,delayed release RxNorm: 994858 TAKE 1 TABLET BY MOUTH EVERY MORNING 03/13/2018 06/08/2018 Inactive Generic For:PROTONIX 40MG 03/13/2018 9:02:28 AM N O T I C E Last quantity doesn't match original quantity Plavix 75 mg tablet RxNorm: 062682 TAKE 1 TABLET BY MOUTH ONCE DAILY 03/10/2018 10/05/2018 Active Generic For:*PLAVIX 75MG 03/10/2018 10:12:55 AM tamsulosin 0.4 mg capsule RxNorm: 046879 TAKE 1 CAPSULE BY MOUTH ONCE DAILY 03/10/2018 06/03/2018 Inactive Generic For:FLOMAX 0.4MG 03/10/2018 10:12:59 AM Jardiance 10 mg tablet RxNorm: 3299813 1 Tablet(s) PO daily 02/20/2018 08/18/2018 Active Jardiance 10 mg tablet RxNorm: 4900274 1 Tablet(s) PO daily 02/20/2018 02/19/2018 Inactive Plavix 75 mg tablet RxNorm: 883666 1 Tablet(s) PO QHS 02/12/2018 03/09/2018 Inactive tamsulosin 0.4 mg capsule RxNorm: 850756 1 Capsule(s) PO daily 02/12/2018 03/09/2018 Inactive Tylenol 325 mg tablet RxNorm: 187738 1 Tablet(s) PO QHS and every 6 hours prn 02/03/2018 02/02/2018 Inactive Tylenol 325 mg tablet RxNorm: 181362 1 Tablet(s) PO QHS and every 6 hours prn 02/03/2018 06/02/2018 Inactive loperamide 2 mg tablet RxNorm: 092295 2 after 1st stool & 1 after each add/max 4 in 24 hours Tablet(s) PO 02/03/2018 02/02/2018 Inactive loperamide 2 mg tablet RxNorm: 376863 2 after 1st stool & 1 after each add/max 4 in 24 hours Tablet(s) PO 02/03/2018 06/02/2018 Inactive Vitamin B-12 1,000 mcg tablet RxNorm: 316515 TAKE 1 TABLET BY MOUTH ONCE DAILY 01/27/2018 12/22/2018 Active 01/27/2018 10:10:15 AM glimepiride 2 mg tablet RxNorm: 331690 TAKE 1 TABLET BY MOUTH ONCE DAILY 01/27/2018 05/25/2018 Inactive Generic For:AMARYL 2MG 01/27/2018 10:09:58 AM Januvia 100 mg tablet RxNorm: 773207 TAKE 1 TABLET BY MOUTH ONCE DAILY 01/20/2018 02/19/2018 Inactive 01/20/2018 9:58:08 AM Alcohol Pads RxNorm: 356107 1 [facility] 01/07/2018 No Stop Date Active amlodipine 5 mg tablet RxNorm: 924178 TAKE ONE TABLET BY MOUTH DAILY 01/06/2018 06/30/2018 Inactive Generic For:NORVASC 5MG 01/06/2018 10:33:58 AM N O T I C E Last quantity doesn't match original quantity gabapentin 100 mg capsule RxNorm: 001341 TAKE 1 CAPSULE BY MOUTH THREE TIMES DAILY 01/06/2018 04/06/2018 Inactive Generic For:NEURONTIN 100MG 01/06/2018 10:33:55 AM N O T I C E Last quantity doesn't match original quantity Protonix 40 mg tablet,delayed release RxNorm: 283314 TAKE 1 TABLET BY MOUTH EVERY MORNING 12/16/2017 03/12/2018 Inactive Generic For:PROTONIX 40MG Proscar 5 mg tablet RxNorm: 306000 TAKE 1 TABLET BY MOUTH ONCE DAILY 11/04/2017 05/02/2018 Inactive Generic For:PROSCAR 5MG 11/04/2017 9:47:27 AM Aspirin Low Dose 81 mg tablet,delayed release RxNorm: 280307 1 Tablet(s) PO [facility] 10/21/2017 10/15/2018 Active amlodipine 5 mg tablet RxNorm: 152915 TAKE ONE TABLET BY MOUTH DAILY 10/07/2017 01/04/2018 Inactive Generic For:NORVASC 5MG 10/07/2017 9:55:37 AM gabapentin 100 mg capsule RxNorm: 322189 TAKE 1 CAPSULE BY MOUTH THREE TIMES DAILY 10/07/2017 01/04/2018 Inactive Generic For:NEURONTIN 100MG 10/07/2017 9:55:26 AM Januvia 100 mg tablet RxNorm: 105642 TAKE 1 TABLET BY MOUTH ONCE DAILY 09/23/2017 01/19/2018 Inactive 09/23/2017 9:25:24 AM pravastatin 40 mg tablet RxNorm: 226318 TAKE ONE TABLET BY MOUTH EVERY NIGHT AT BEDTIME 09/19/2017 03/12/2018 Inactive Generic For:PRAVACHOL 40MG 09/19/2017 9:12:02 AM Protonix 40 mg tablet,delayed release RxNorm: 472876 TAKE 1 TABLET BY MOUTH EVERY MORNING 09/16/2017 12/15/2017 Inactive Generic For:PROTONIX 40MG 09/16/2017 9:50:22 AM amlodipine 5 mg tablet RxNorm: 024209 TAKE ONE TABLET BY MOUTH DAILY 09/09/2017 10/06/2017 Inactive Generic For:NORVASC 5MG 09/09/2017 9:16:37 AM gabapentin 100 mg capsule RxNorm: 279229 TAKE 1 CAPSULE BY MOUTH THREE TIMES DAILY 09/09/2017 10/06/2017 Inactive Generic For:NEURONTIN 100MG 09/09/2017 9:16:33 AM Vitamin D3 1,000 unit tablet RxNorm: 118877 1 Tablet(s) PO daily 09/04/2017 07/21/2018 Inactive Vitamin D3 1,000 unit tablet RxNorm: 309553 1 Tablet(s) PO daily 09/03/2017 09/03/2017 Inactive glimepiride 2 mg tablet RxNorm: 388985 TAKE 1 TABLET BY MOUTH ONCE DAILY 09/02/2017 01/26/2018 Inactive Generic For:AMARYL 2MG 09/02/2017 9:35:29 AM Vitamin B-12 1,000 mcg tablet RxNorm: 739822 TAKE 1 TABLET BY MOUTH ONCE DAILY 09/02/2017 01/26/2018 Inactive 09/02/2017 9:35:38 AM pravastatin 40 mg tablet RxNorm: 881380 1 Tablet(s) PO QHS 08/22/2017 08/21/2017 Inactive pravastatin 40 mg tablet RxNorm: 296986 1 Tablet(s) PO QHS 08/22/2017 09/18/2017 Inactive glimepiride 2 mg tablet RxNorm: 405110 1 Tablet(s) PO daily 07/24/2017 09/01/2017 Inactive hydrocodone 5 mg-acetaminophen 325 mg tablet RxNorm: 717491 1-2 Tablet(s) PO Q4H as needed for pain 07/23/2017 08/28/2017 Inactive Proscar 5 mg tablet RxNorm: 171365 1 Tablet(s) PO daily No Start Date 11/03/2017 Inactive Metamucil oral packet RxNorm: 1 packet PO daily No Start Date 07/23/2017 Inactive Vitamin B-12 1,000 mcg tablet RxNorm: 670397 1 Tablet(s) PO daily No Start Date 09/01/2017 Inactive tamsulosin 0.4 mg capsule RxNorm: 653284 1 Capsule(s) PO daily No Start Date 02/11/2018 Inactive Plavix 75 mg tablet RxNorm: 060702 1 Tablet(s) PO QHS No Start Date 02/11/2018 Inactive Alcohol Pads RxNorm: 218983 1 TOP No Start Date 01/06/2018 Inactive Vitamin D3 1,000 unit tablet RxNorm: 897841 1 Tablet(s) PO daily No Start Date 09/02/2017 Inactive gabapentin 100 mg capsule RxNorm: 475210 1 Capsule(s) PO TID No Start Date 09/08/2017 Inactive olanzapine 5 mg tablet RxNorm: 029156 1 Tablet(s) PO QHS No Start Date 07/22/2017 Inactive Lipitor 40 mg tablet RxNorm: 585026 1 Tablet(s) PO QHS No Start Date 08/21/2017 Inactive Januvia 100 mg tablet RxNorm: 507256 1 Tablet(s) PO QHS No Start Date 09/22/2017 Inactive folic acid 1 mg tablet RxNorm: 478628 1 Tablet(s) PO daily No Start Date 07/23/2017 Inactive hydrocodone 5 mg-acetaminophen 325 mg tablet RxNorm: 200364 1 Tablet(s) PO Q4H as needed for pain No Start Date 07/22/2017 Inactive Protonix 40 mg tablet,delayed release RxNorm: 139499 1 Tablet(s) PO daily No Start Date 09/15/2017 Inactive allopurinol 100 mg tablet RxNorm: 185583 1 Tablet(s) PO BID No Start Date 03/19/2018 Inactive amlodipine 5 mg tablet RxNorm: 554843 1 Tablet(s) PO daily No Start Date 09/08/2017 Inactive Aspirin Low Dose 81 mg tablet,delayed release RxNorm: 000302 1 Tablet(s) PO QHS No Start Date 10/20/2017 Inactive Medication Administered No Medication Administered data Immunizations No Immunization data Assessments Condition Codes Effective Dates Muscle weakness (generalized) ICD-10: M62.81 ICD-9: 728.87 08/08/2018 Chronic kidney disease, stage 3 (moderate) ICD-10: N18.3 ICD-9: 585.3 08/08/2018 Type 2 diabetes mellitus with hyperglycemia ICD-10: E11.65 ICD-9: 250.02 08/08/2018 Diarrhea, unspecified ICD-10: R19.7 ICD-9: 787.91 08/08/2018 Essential (primary) hypertension ICD-10: I10 ICD-9: 401.1 05/29/2018 Primary generalized (osteo)arthritis ICD-10: M15.0 ICD-9: 715.09 05/29/2018 Cervicalgia ICD-10: M54.2 ICD-9: 723.1 11/28/2017 Foot drop, left foot ICD-10: M21.372 ICD-9: 736.79 08/29/2017 Reason For Visit Reason For Visit Effective Dates Notes diarrhea 08/08/2018 diabetes mellitus 05/29/2018 diabetes mellitus 02/27/2018 diabetes mellitus 11/28/2017 diabetes mellitus 08/29/2017 diabetes mellitus 07/23/2017 Results Observation Observation Code Item Item Code Result Date Clostridium Diff Tox A/B Brw834 Cdiff Negative 08/11/2018 Urinalysis Ord28 U-Color Yellow 08/11/2018 Urinalysis Ord28 U-Clarity Slightly Cloudy 08/11/2018 Urinalysis Ord28 U-Gluc 500 mg/dL 08/11/2018 Urinalysis Ord28 U-Bili Negative 08/11/2018 Urinalysis Ord28 U-Ketone Negative 08/11/2018 Urinalysis Ord28 U-SG 1.015 08/11/2018 Urinalysis Ord28 U-Blood Negative 08/11/2018 Urinalysis Ord28 U-pH 5.5 08/11/2018 Urinalysis Ord28 U-Protein 30 mg/dL 08/11/2018 Urinalysis Ord28 U-Urobilin 0.2 E.U./dL E.U./dL 08/11/2018 Urinalysis Ord28 U-Nitrites Negative 08/11/2018 Urinalysis Ord28 U-Leuk Negative 08/11/2018 Urinalysis Ord28 U-Bact TRACE 08/11/2018 Urinalysis Ord28 U-Squamous Epi RARE per/HPF 08/11/2018 Urinalysis Ord28 U-Crystal None per/HPF 08/11/2018 Urinalysis Ord28 U-Mucus 1+ 08/11/2018 Urinalysis Ord28 U-Renal tubular epi None 08/11/2018 Urinalysis Ord28 U-RBC RARE per/HPF 08/11/2018 Urinalysis Ord28 U-Transitional epi None per/HPF 08/11/2018 Urinalysis Ord28 U-WBC 3-5 per/HPF 08/11/2018 Urinalysis Ord28 U-Cast None per/lpf 08/11/2018 Urinalysis Ord28 U-VOL VOLUME SUFFICIENT (10mL) 08/11/2018 Urinalysis Ord28 U-Com Culture to follow 08/11/2018 Urinalysis Ord28 U-Yeast NEGATIVE 08/11/2018 Cbc With Differential Ord2 WBC 9.78 K/ul 08/08/2018 Cbc With Differential Ord2 RBC 3.96 M/ul 08/08/2018 Cbc With Differential Ord2 HGB 12.3 g/dl 08/08/2018 Cbc With Differential Ord2 HCT 37.4 % 08/08/2018 Cbc With Differential Ord2 Neut% 76.3 % 08/08/2018 Cbc With Differential Ord2 Lymph% 12.9 % 08/08/2018 Cbc With Differential Ord2 MCV 94.4 fl 08/08/2018 Cbc With Differential Ord2 [place]% 9.2 % 08/08/2018 Cbc With Differential Ord2 MCH 31.1 pg 08/08/2018 Cbc With Differential Ord2 Eos% 1.4 % 08/08/2018 Cbc With Differential Ord2 MCHC 32.9 pg 08/08/2018 Cbc With Differential Ord2 Baso% 0.2 % 08/08/2018 Cbc With Differential Ord2 PLT 199 K/ul 08/08/2018 Cbc With Differential Ord2 RDW 15.2 % 08/08/2018 Cbc With Differential Ord2 Neut ABS# 7.46 K/ul 08/08/2018 Cbc With Differential Ord2 Lymph ABS# 1.26 K/ul 08/08/2018 Cbc With Differential Ord2 [place] ABS# 0.9 K/ul 08/08/2018 Cbc With Differential Ord2 Eos ABS# 0.1 K/ul 08/08/2018 Cbc With Differential Ord2 Baso ABS# 0.0 K/ul 08/08/2018 Comp Metabolic Afi429 NA 135 mEq/L 08/08/2018 Comp Metabolic Bnl048 K 3.7 mEq/L 08/08/2018 Comp Metabolic Keq820 CL 106 mEq/L 08/08/2018 Comp Metabolic Vub602 CO2 18.0 mEq/L 08/08/2018 Comp Metabolic Wrb647 ANION GAP 15 08/08/2018 Comp Metabolic Bay684 GLUCOSE 123 mg/dL 08/08/2018 Comp Metabolic Lsq084 Creat 1.5 mg/dL 08/08/2018 Comp Metabolic Can993 eGFR 49 ml/min/1.73m2 08/08/2018 Comp Metabolic Alx346 BUN 32 mg/dL 08/08/2018 Comp Metabolic Gmi838 B/C Ratio 21.9 Ratio 08/08/2018 Comp Metabolic Wty255 CALCIUM 8.2 mg/dL 08/08/2018 Comp Metabolic Dxl308 ALK PHOS 58 U/L 08/08/2018 Comp Metabolic Zfw360 AST(SGOT) 11 U/L 08/08/2018 Comp Metabolic Prn105 ALT(SGPT) 11 U/L 08/08/2018 Comp Metabolic Fze924 BILI T 1.0 mg/dL 08/08/2018 Comp Metabolic Eoo105 ALBUMIN 3.5 g/dL 08/08/2018 Comp Metabolic Cyj494 TPRO 5.8 g/dL 08/08/2018 Comp Metabolic Dbj543 GLOB 2.3 g/dL 08/08/2018 Comp Metabolic Hxq789 A/G Ratio 1.6 Ratio 08/08/2018 Comp Metabolic Ffe444 Osmo 278 mOsmo 08/08/2018 %Hba1C Iaj915 % HbA1c 89536- 6 7.0 % 05/29/2018 %Hba1C Xpo262 Gluc Ave 154 mg/dL 05/29/2018 Comp Metabolic Ebb890 NA 139 mEq/L 05/29/2018 Comp Metabolic Hkm555 K 4.1 mEq/L 05/29/2018 Comp Metabolic Yej858 CL 109 mEq/L 05/29/2018 Comp Metabolic Aga285 CO2 23.0 mEq/L 05/29/2018 Comp Metabolic Hki707 ANION GAP 11 05/29/2018 Comp Metabolic Jux213 GLUCOSE 164 mg/dL 05/29/2018 Comp Metabolic Nzg460 Creat 1.4 mg/dL 05/29/2018 Comp Metabolic Uuq009 eGFR 50 ml/min/1.73m2 05/29/2018 Comp Metabolic Igi621 BUN 30 mg/dL 05/29/2018 Comp Metabolic Pqc904 B/C Ratio 21.0 Ratio 05/29/2018 Comp Metabolic Aex718 CALCIUM 9.2 mg/dL 05/29/2018 Comp Metabolic Lux447 ALK PHOS 55 U/L 05/29/2018 Comp Metabolic Phu407 AST(SGOT) 11 U/L 05/29/2018 Comp Metabolic Ejj172 ALT(SGPT) 15 U/L 05/29/2018 Comp Metabolic Nxp517 BILI T 0.8 mg/dL 05/29/2018 Comp Metabolic Zwj653 ALBUMIN 4.0 g/dL 05/29/2018 Comp Metabolic Lnu246 TPRO 6.3 g/dL 05/29/2018 Comp Metabolic Gnm662 GLOB 2.4 g/dL 05/29/2018 Comp Metabolic Wzx969 A/G Ratio 1.7 Ratio 05/29/2018 Comp Metabolic Igp451 Osmo 287 mOsmo 05/29/2018 Cbc With Differential Ord2 WBC 7.42 K/ul 05/29/2018 Cbc With Differential Ord2 RBC 4.12 M/ul 05/29/2018 Cbc With Differential Ord2 HGB 12.8 g/dl 05/29/2018 Cbc With Differential Ord2 Neut% 61.3 % 05/29/2018 Cbc With Differential Ord2 HCT 38.9 % 05/29/2018 Cbc With Differential Ord2 Lymph% 25.6 % 05/29/2018 Cbc With Differential Ord2 MCV 94.4 fl 05/29/2018 Cbc With Differential Ord2 MCH 31.1 pg 05/29/2018 Cbc With Differential Ord2 Clar[place]% 8.9 % 05/29/2018 Cbc With Differential Ord2 Eos% 3.5 % 05/29/2018 Cbc With Differential Ord2 MCHC 32.9 pg 05/29/2018 Cbc With Differential Ord2 PLT 209 K/ul 05/29/2018 Cbc With Differential Ord2 Baso% 0.7 % 05/29/2018 Cbc With Differential Ord2 RDW 15.2 % 05/29/2018 Cbc With Differential Ord2 Neut ABS# 4.55 K/ul 05/29/2018 Cbc With Differential Ord2 Lymph ABS# 1.90 K/ul 05/29/2018 Cbc With Differential Ord2 [place] ABS# 0.7 K/ul 05/29/2018 Cbc With Differential Ord2 Eos ABS# 0.3 K/ul 05/29/2018 Cbc With Differential Ord2 Baso ABS# 0.1 K/ul 05/29/2018 Cbc With Differential Ord2 WBC 7.42 K/ul 11/29/2017 Cbc With Differential Ord2 RBC 3.82 M/ul 11/29/2017 Cbc With Differential Ord2 HGB 11.7 g/dl 11/29/2017 Cbc With Differential Ord2 HCT 36.1 % 11/29/2017 Cbc With Differential Ord2 Neut% 68.6 % 11/29/2017 Cbc With Differential Ord2 MCV 94.5 fl 11/29/2017 Cbc With Differential Ord2 Lymph% 19.7 % 11/29/2017 Cbc With Differential Ord2 MCH 30.6 pg 11/29/2017 Cbc With Differential Ord2 [place]% 8.0 % 11/29/2017 Cbc With Differential Ord2 MCHC 32.4 pg 11/29/2017 Cbc With Differential Ord2 Eos% 3.2 % 11/29/2017 Cbc With Differential Ord2 PLT 211 K/ul 11/29/2017 Cbc With Differential Ord2 Baso% 0.5 % 11/29/2017 Cbc With Differential Ord2 RDW 14.9 % 11/29/2017 Cbc With Differential Ord2 Neut ABS# 5.09 K/ul 11/29/2017 Cbc With Differential Ord2 Lymph ABS# 1.46 K/ul 11/29/2017 Cbc With Differential Ord2 [place] ABS# 0.6 K/ul 11/29/2017 Cbc With Differential Ord2 Eos ABS# 0.2 K/ul 11/29/2017 Cbc With Differential Ord2 Baso ABS# 0.0 K/ul 11/29/2017 Lipid Ord30 CHOL 115 mg/dL 11/29/2017 Lipid Ord30 HDL 40.0 mg/dl 11/29/2017 Lipid Ord30 TRIG 114 mg/dL 11/29/2017 Lipid Ord30 LDL 52 mg/dL 11/29/2017 Lipid Ord30 C/HDL 2.9 Ratio 11/29/2017 %Hba1C Brd695 % HbA1c 17004- 6 6.5 % 11/29/2017 %Hba1C Jjo745 Gluc Ave 140 mg/dL 11/29/2017 Comp Metabolic Ekx321 NA 140 mEq/L 11/29/2017 Comp Metabolic Zro272 K 3.6 mEq/L 11/29/2017 Comp Metabolic Bng456 CL 106 mEq/L 11/29/2017 Comp Metabolic Tac920 CO2 24.0 mEq/L 11/29/2017 Comp Metabolic Zbx217 ANION GAP 14 11/29/2017 Comp Metabolic Ula311 GLUCOSE 151 mg/dL 11/29/2017 Comp Metabolic Nuf524 Creat 1.2 mg/dL 11/29/2017 Comp Metabolic Osk799 eGFR 61 ml/min/1.73m2 11/29/2017 Comp Metabolic Uzg111 BUN 34 mg/dL 11/29/2017 Comp Metabolic Ljl474 B/C Ratio 28.3 Ratio 11/29/2017 Comp Metabolic Roe660 CALCIUM 8.9 mg/dL 11/29/2017 Comp Metabolic Edw778 ALK PHOS 69 U/L 11/29/2017 Comp Metabolic Qtx406 AST(SGOT) 13 U/L 11/29/2017 Comp Metabolic Nje899 ALT(SGPT) 16 U/L 11/29/2017 Comp Metabolic Fpm231 BILI T 0.7 mg/dL 11/29/2017 Comp Metabolic Asj212 ALBUMIN 3.5 g/dL 11/29/2017 Comp Metabolic Rom250 TPRO 5.7 g/dL 11/29/2017 Comp Metabolic Iej952 GLOB 2.2 g/dL 11/29/2017 Comp Metabolic Cqh616 A/G Ratio 1.6 Ratio 11/29/2017 Comp Metabolic Mye400 Osmo 290 mOsmo 11/29/2017 Review of Systems System Result Effective Dates Constitutional recent illness 08/08/2018 Constitutional No anorexia 08/08/2018 Constitutional No night sweats 08/08/2018 Constitutional No chills 08/08/2018 Constitutional No diaphoresis 08/08/2018 Constitutional fatigue 08/08/2018 Constitutional No fever 08/08/2018 Constitutional No insomnia 08/08/2018 Constitutional No malaise 08/08/2018 Constitutional No weight loss 08/08/2018 Constitutional No weight gain 08/08/2018 Eyes No eye discharge 08/08/2018 Eyes No vision change 08/08/2018 Ears/Nose/Throat/Neck dizziness 08/08/2018 Ears/Nose/Throat/Neck No headache 08/08/2018 Cardiovascular No chest pain/pressure 08/08/2018 Respiratory No cough 08/08/2018 Gastrointestinal No abdominal pain 08/08/2018 Gastrointestinal No constipation 08/08/2018 Genitourinary/Nephrology No dysuria 08/08/2018 Musculoskeletal stiffness 08/08/2018 Dermatologic No rash 08/08/2018 Neurologic No alteration of consciousness 08/08/2018 Psychiatric No anxiety 08/08/2018 Endocrine No dry or coarse skin 08/08/2018 Gastrointestinal diarrhea 08/08/2018 Constitutional No recent illness 05/29/2018 Constitutional No anorexia 05/29/2018 Constitutional No night sweats 05/29/2018 Constitutional No chills 05/29/2018 Constitutional No diaphoresis 05/29/2018 Constitutional No fatigue 05/29/2018 Constitutional No fever 05/29/2018 Constitutional No insomnia 05/29/2018 Constitutional No malaise 05/29/2018 Constitutional No weight loss 05/29/2018 Constitutional No weight gain 05/29/2018 Eyes No eye discharge 05/29/2018 Eyes No vision change 05/29/2018 Ears/Nose/Throat/Neck No dizziness 05/29/2018 Ears/Nose/Throat/Neck No headache 05/29/2018 Cardiovascular No chest pain/pressure 05/29/2018 Respiratory No cough 05/29/2018 Gastrointestinal No abdominal pain 05/29/2018 Gastrointestinal No constipation 05/29/2018 Gastrointestinal diarrhea 05/29/2018 Genitourinary/Nephrology No dysuria 05/29/2018 Dermatologic No rash 05/29/2018 Neurologic No alteration of consciousness 05/29/2018 Psychiatric No anxiety 05/29/2018 Endocrine No dry or coarse skin 05/29/2018 Musculoskeletal stiffness 05/29/2018 Constitutional No recent illness 02/27/2018 Constitutional No anorexia 02/27/2018 Constitutional No night sweats 02/27/2018 Constitutional No chills 02/27/2018 Constitutional No diaphoresis 02/27/2018 Constitutional No fatigue 02/27/2018 Constitutional No fever 02/27/2018 Constitutional No insomnia 02/27/2018 Constitutional No malaise 02/27/2018 Constitutional No weight loss 02/27/2018 Constitutional No weight gain 02/27/2018 Eyes No eye discharge 02/27/2018 Eyes No vision change 02/27/2018 Ears/Nose/Throat/Neck No dizziness 02/27/2018 Ears/Nose/Throat/Neck No headache 02/27/2018 Cardiovascular No chest pain/pressure 02/27/2018 Respiratory No cough 02/27/2018 Gastrointestinal No abdominal pain 02/27/2018 Gastrointestinal No constipation 02/27/2018 Gastrointestinal diarrhea 02/27/2018 Genitourinary/Nephrology No dysuria 02/27/2018 Musculoskeletal neck pain 02/27/2018 Dermatologic No rash 02/27/2018 Neurologic No alteration of consciousness 02/27/2018 Psychiatric No anxiety 02/27/2018 Endocrine No dry or coarse skin 02/27/2018 Constitutional No recent illness 11/28/2017 Constitutional No anorexia 11/28/2017 Constitutional No night sweats 11/28/2017 Constitutional No chills 11/28/2017 Constitutional No diaphoresis 11/28/2017 Constitutional No fatigue 11/28/2017 Constitutional No fever 11/28/2017 Constitutional No insomnia 11/28/2017 Constitutional No malaise 11/28/2017 Constitutional No weight loss 11/28/2017 Constitutional No weight gain 11/28/2017 Psychiatric No anxiety 11/28/2017 Neurologic No alteration of consciousness 11/28/2017 Dermatologic No rash 11/28/2017 Musculoskeletal neck pain 11/28/2017 Genitourinary/Nephrology No dysuria 11/28/2017 Gastrointestinal No abdominal pain 11/28/2017 Gastrointestinal No constipation 11/28/2017 Gastrointestinal diarrhea 11/28/2017 Respiratory No cough 11/28/2017 Cardiovascular No chest pain/pressure 11/28/2017 Ears/Nose/Throat/Neck No dizziness 11/28/2017 Ears/Nose/Throat/Neck No headache 11/28/2017 Eyes No eye discharge 11/28/2017 Eyes No vision change 11/28/2017 Endocrine No dry or coarse skin 11/28/2017 Constitutional No recent illness 08/29/2017 Constitutional No anorexia 08/29/2017 Constitutional No night sweats 08/29/2017 Constitutional No chills 08/29/2017 Constitutional No diaphoresis 08/29/2017 Constitutional No fatigue 08/29/2017 Constitutional No fever 08/29/2017 Constitutional No insomnia 08/29/2017 Constitutional No malaise 08/29/2017 Constitutional No weight loss 08/29/2017 Constitutional No weight gain 08/29/2017 Eyes No eye discharge 08/29/2017 Eyes No eye erythema 08/29/2017 Ears/Nose/Throat/Neck No dizziness 08/29/2017 Ears/Nose/Throat/Neck No headache 08/29/2017 Cardiovascular No chest pain/pressure 08/29/2017 Cardiovascular No dyspnea 08/29/2017 Cardiovascular No edema 08/29/2017 Respiratory No cough 08/29/2017 Gastrointestinal No abdominal pain 08/29/2017 Gastrointestinal No constipation 08/29/2017 Gastrointestinal No diarrhea 08/29/2017 Genitourinary/Nephrology No dysuria 08/29/2017 Musculoskeletal joint complaint 08/29/2017 Dermatologic No rash 08/29/2017 Neurologic No alteration of consciousness 08/29/2017 Psychiatric No depression 08/29/2017 Endocrine No dry or coarse skin 08/29/2017 Endocrine diabetes mellitus type 2 08/29/2017 Hematologic/Lymphatic No abnormal ecchymoses 08/29/2017 Constitutional No recent illness 07/23/2017 Constitutional No anorexia 07/23/2017 Constitutional No night sweats 07/23/2017 Constitutional No chills 07/23/2017 Constitutional No diaphoresis 07/23/2017 Constitutional No fatigue 07/23/2017 Constitutional No fever 07/23/2017 Constitutional No insomnia 07/23/2017 Constitutional No malaise 07/23/2017 Constitutional No weight loss 07/23/2017 Constitutional No weight gain 07/23/2017 Eyes No eye discharge 07/23/2017 Eyes No eye erythema 07/23/2017 Ears/Nose/Throat/Neck No dizziness 07/23/2017 Ears/Nose/Throat/Neck No headache 07/23/2017 Cardiovascular No chest pain/pressure 07/23/2017 Cardiovascular No dyspnea 07/23/2017 Cardiovascular No edema 07/23/2017 Respiratory cough 07/23/2017 Gastrointestinal No abdominal pain 07/23/2017 Gastrointestinal No constipation 07/23/2017 Gastrointestinal No diarrhea 07/23/2017 Genitourinary/Nephrology No dysuria 07/23/2017 Musculoskeletal joint complaint 07/23/2017 Dermatologic No rash 07/23/2017 Neurologic No alteration of consciousness 07/23/2017 Psychiatric No depression 07/23/2017 Endocrine No dry or coarse skin 07/23/2017 Endocrine diabetes mellitus type 2 07/23/2017 Hematologic/Lymphatic No abnormal ecchymoses 07/23/2017 Physical Exam Exam Name System Name Item Name Status Result Effective Dates Notes Full Exam - General 1994 Constitutional general appearance Overall: well developed 08/08/2018 None Full Exam - General 1994 Constitutional general appearance Overall: in no acute distress 08/08/2018 None Full Exam - General 1994 Constitutional general appearance Overall: well nourished 08/08/2018 None Full Exam - General 1994 Constitutional general appearance Assistive Device: walker 08/08/2018 None Full Exam - General 1994 Eyes conjunctiva/eyelids Overall: conjunctiva clear 08/08/2018 None Full Exam - General 1994 Eyes pupils and irises Overall: pupils equal, round, reactive to light and accomodation 08/08/2018 None Full Exam - General 1994 Ears/Nose/Throat otoscopic exam Overall: external auditory canals clear 08/08/2018 None Full Exam - General 1995 Ears/Nose/Throat otoscopic exam Overall: tympanic membranes clear 08/08/2018 None Full Exam - General 1994 Ears/Nose/Throat oral cavity/pharynx/larynx Overall: oral mucosa clear 08/08/2018 None Full Exam - General 1994 Respiratory auscultation Overall: breath sounds clear bilaterally 08/08/2018 None Full Exam - General 1994 Respiratory respiratory effort/rhythm Overall: no retractions 08/08/2018 None Full Exam - General 1994 Respiratory respiratory effort/rhythm Overall: normal rate 08/08/2018 None Full Exam - General 1994 Cardiovascular auscultation of heart Overall: regular rate 08/08/2018 None Full Exam - General 1994 Cardiovascular auscultation of heart Overall: normal heart sounds 08/08/2018 None Full Exam - General 1994 Abdomen abdominal exam Overall: no tenderness 08/08/2018 None Full Exam - General 1994 Abdomen abdominal exam Overall: normal bowel sounds 08/08/2018 None Full Exam - General 1994 Musculoskeletal head and neck Overall: head atraumatic 08/08/2018 None Full Exam - General 1994 Integument inspection of skin Overall: few scattered moles, no gross abnormalities 08/08/2018 None Full Exam - General 1994 Neurologic cranial nerves Overall: crainial nerves 2 - 12 grossly intact 08/08/2018 None Full Exam - General 1994 Psychiatric orientation/consciousness Overall: oriented to person, place and time 08/08/2018 None Full Exam - General 1994 Constitutional general appearance Overall: well developed 05/29/2018 None Full Exam - General 1994 Constitutional general appearance Overall: in no acute distress 05/29/2018 None Full Exam - General 1994 Constitutional general appearance Overall: well nourished 05/29/2018 None Full Exam - General 1994 Constitutional general appearance Assistive Device: walker 05/29/2018 None Full Exam - General 1994 Eyes conjunctiva/eyelids Overall: conjunctiva clear 05/29/2018 None Full Exam - General 1994 Eyes pupils and irises Overall: pupils equal, round, reactive to light and accomodation 05/29/2018 None Full Exam - General 1994 Ears/Nose/Throat otoscopic exam Overall: external auditory canals clear 05/29/2018 None Full Exam - General 1994 Ears/Nose/Throat otoscopic exam Overall: tympanic membranes clear 05/29/2018 None Full Exam - General 1994 Ears/Nose/Throat oral cavity/pharynx/larynx Overall: oral mucosa clear 05/29/2018 None Full Exam - General 1994 Respiratory auscultation Overall: breath sounds clear bilaterally 05/29/2018 None Full Exam - General 1994 Respiratory respiratory effort/rhythm Overall: no retractions 05/29/2018 None Full Exam - General 1994 Respiratory respiratory effort/rhythm Overall: normal rate 05/29/2018 None Full Exam - General 1994 Cardiovascular auscultation of heart Overall: regular rate 05/29/2018 None Full Exam - General 1994 Cardiovascular auscultation of heart Overall: normal heart sounds 05/29/2018 None Full Exam - General 1994 Abdomen abdominal exam Overall: no tenderness 05/29/2018 None Full Exam - General 1994 Abdomen abdominal exam Overall: normal bowel sounds 05/29/2018 None Full Exam - General 1994 Musculoskeletal head and neck Overall: head atraumatic 05/29/2018 None Full Exam - General 1994 Integument inspection of skin Overall: few scattered moles, no gross abnormalities 05/29/2018 None Full Exam - General 1994 Neurologic cranial nerves Overall: crainial nerves 2 - 12 grossly intact 05/29/2018 None Full Exam - General 1994 Psychiatric orientation/consciousness Overall: oriented to person, place and time 05/29/2018 None Full Exam - General 1994 Constitutional general appearance Overall: well developed 02/27/2018 None Full Exam - General 1994 Constitutional general appearance Overall: in no acute distress 02/27/2018 None Full Exam - General 1994 Constitutional general appearance Overall: well nourished 02/27/2018 None Full Exam - General 1994 Constitutional general appearance Assistive Device: walker 02/27/2018 None Full Exam - General 1994 Eyes conjunctiva/eyelids Overall: conjunctiva clear 02/27/2018 None Full Exam - General 1994 Eyes pupils and irises Overall: pupils equal, round, reactive to light and accomodation 02/27/2018 None Full Exam - General 1994 Ears/Nose/Throat otoscopic exam Overall: external auditory canals clear 02/27/2018 None Full Exam - General 1994 Ears/Nose/Throat otoscopic exam Overall: tympanic membranes clear 02/27/2018 None Full Exam - General 1994 Ears/Nose/Throat oral cavity/pharynx/larynx Overall: oral mucosa clear 02/27/2018 None Full Exam - General 1994 Respiratory auscultation Overall: breath sounds clear bilaterally 02/27/2018 None Full Exam - General 1994 Respiratory respiratory effort/rhythm Overall: no retractions 02/27/2018 None Full Exam - General 1994 Respiratory respiratory effort/rhythm Overall: normal rate 02/27/2018 None Full Exam - General 1994 Cardiovascular auscultation of heart Overall: regular rate 02/27/2018 None Full Exam - General 1994 Cardiovascular auscultation of heart Overall: normal heart sounds 02/27/2018 None Full Exam - General 1994 Abdomen abdominal exam Overall: no tenderness 02/27/2018 None Full Exam - General 1994 Abdomen abdominal exam Overall: normal bowel sounds 02/27/2018 None Full Exam - General 1994 Musculoskeletal head and neck Overall: head atraumatic 02/27/2018 None Full Exam - General 1994 Integument inspection of skin Overall: few scattered moles, no gross abnormalities 02/27/2018 None Full Exam - General 1994 Neurologic cranial nerves Overall: crainial nerves 2 - 12 grossly intact 02/27/2018 None Full Exam - General 1994 Psychiatric orientation/consciousness Overall: oriented to person, place and time 02/27/2018 None Full Exam - General 1994 Constitutional general appearance Overall: well developed 11/28/2017 None Full Exam - General 1994 Constitutional general appearance Overall: in no acute distress 11/28/2017 None Full Exam - General 1994 Constitutional general appearance Overall: well nourished 11/28/2017 None Full Exam - General 1994 Constitutional general appearance Assistive Device: walker 11/28/2017 None Full Exam - General 1994 Eyes conjunctiva/eyelids Overall: conjunctiva clear 11/28/2017 None Full Exam - General 1994 Eyes pupils and irises Overall: pupils equal, round, reactive to light and accomodation 11/28/2017 None Full Exam - General 1994 Ears/Nose/Throat otoscopic exam Overall: external auditory canals clear 11/28/2017 None Full Exam - General 1994 Ears/Nose/Throat otoscopic exam Overall: tympanic membranes clear 11/28/2017 None Full Exam - General 1994 Ears/Nose/Throat oral cavity/pharynx/larynx Overall: oral mucosa clear 11/28/2017 None Full Exam - General 1994 Respiratory auscultation Overall: breath sounds clear bilaterally 11/28/2017 None Full Exam - General 1994 Respiratory respiratory effort/rhythm Overall: no retractions 11/28/2017 None Full Exam - General 1994 Respiratory respiratory effort/rhythm Overall: normal rate 11/28/2017 None Full Exam - General 1994 Cardiovascular auscultation of heart Overall: regular rate 11/28/2017 None Full Exam - General 1994 Cardiovascular auscultation of heart Overall: normal heart sounds 11/28/2017 None Full Exam - General 1994 Abdomen abdominal exam Overall: no tenderness 11/28/2017 None Full Exam - General 1994 Abdomen abdominal exam Overall: normal bowel sounds 11/28/2017 None Full Exam - General 1994 Musculoskeletal head and neck Overall: head atraumatic 11/28/2017 None Full Exam - General 1994 Integument inspection of skin Overall: few scattered moles, no gross abnormalities 11/28/2017 None Full Exam - General 1994 Neurologic cranial nerves Overall: crainial nerves 2 - 12 grossly intact 11/28/2017 None Full Exam - General 1994 Psychiatric orientation/consciousness Overall: oriented to person, place and time 11/28/2017 None Full Exam - General 1994 Constitutional general appearance Overall: well developed 08/29/2017 None Full Exam - General 1994 Constitutional general appearance Overall: in no acute distress 08/29/2017 None Full Exam - General 1994 Constitutional general appearance Overall: well nourished 08/29/2017 None Full Exam - General 1994 Constitutional general appearance Assistive Device: walker 08/29/2017 None Full Exam - General 1994 Eyes conjunctiva/eyelids Overall: conjunctiva clear 08/29/2017 None Full Exam - General 1994 Eyes pupils and irises Overall: pupils equal, round, reactive to light and accomodation 08/29/2017 None Full Exam - General 1994 Ears/Nose/Throat otoscopic exam Overall: external auditory canals clear 08/29/2017 None Full Exam - General 1994 Ears/Nose/Throat otoscopic exam Overall: tympanic membranes clear 08/29/2017 None Full Exam - General 1994 Ears/Nose/Throat oral cavity/pharynx/larynx Overall: oral mucosa clear 08/29/2017 None Full Exam - General 1994 Respiratory auscultation Overall: breath sounds clear bilaterally 08/29/2017 None Full Exam - General 1994 Respiratory respiratory effort/rhythm Overall: no retractions 08/29/2017 None Full Exam - General 1994 Respiratory respiratory effort/rhythm Overall: normal rate 08/29/2017 None Full Exam - General 1994 Cardiovascular auscultation of heart Overall: regular rate 08/29/2017 None Full Exam - General 1994 Cardiovascular auscultation of heart Overall: normal heart sounds 08/29/2017 None Full Exam - General 1994 Abdomen abdominal exam Overall: no tenderness 08/29/2017 None Full Exam - General 1994 Abdomen abdominal exam Overall: normal bowel sounds 08/29/2017 None Full Exam - General 1994 Musculoskeletal head and neck Overall: head atraumatic 08/29/2017 None Full Exam - General 1994 Integument inspection of skin Overall: few scattered moles, no gross abnormalities 08/29/2017 None Full Exam - General 1994 Neurologic cranial nerves Overall: crainial nerves 2 - 12 grossly intact 08/29/2017 None Full Exam - General 1994 Psychiatric orientation/consciousness Overall: oriented to person, place and time 08/29/2017 None Full Exam - General 1994 Constitutional general appearance Overall: well developed 07/23/2017 None Full Exam - General 1994 Constitutional general appearance Overall: in no acute distress 07/23/2017 None Full Exam - General 1994 Constitutional general appearance Overall: well nourished 07/23/2017 None Full Exam - General 1994 Psychiatric orientation/consciousness Overall: oriented to person, place and time 07/23/2017 None Full Exam - General 1994 Constitutional general appearance Assistive Device: walker 07/23/2017 None Full Exam - General 1994 Eyes conjunctiva/eyelids Overall: conjunctiva clear 07/23/2017 None Full Exam - General 1994 Eyes pupils and irises Overall: pupils equal, round, reactive to light and accomodation 07/23/2017 None Full Exam - General 1994 Neurologic cranial nerves Overall: crainial nerves 2 - 12 grossly intact 07/23/2017 None Full Exam - General 1994 Integument inspection of skin Overall: few scattered moles, no gross abnormalities 07/23/2017 None Full Exam - General 1994 Musculoskeletal head and neck Overall: head atraumatic 07/23/2017 None Full Exam - General 1994 Abdomen abdominal exam Overall: no tenderness 07/23/2017 None Full Exam - General 1994 Abdomen abdominal exam Overall: normal bowel sounds 07/23/2017 None Full Exam - General 1994 Cardiovascular auscultation of heart Overall: regular rate 07/23/2017 None Full Exam - General 1994 Cardiovascular auscultation of heart Overall: normal heart sounds 07/23/2017 None Full Exam - General 1994 Respiratory auscultation Overall: breath sounds clear bilaterally 07/23/2017 None Full Exam - General 1994 Respiratory respiratory effort/rhythm Overall: no retractions 07/23/2017 None Full Exam - General 1994 Respiratory respiratory effort/rhythm Overall: normal rate 07/23/2017 None Full Exam - General 1994 Ears/Nose/Throat otoscopic exam Overall: tympanic membranes clear 07/23/2017 None Full Exam - General 1994 Ears/Nose/Throat otoscopic exam Overall: external auditory canals clear 07/23/2017 None Full Exam - General 1994 Ears/Nose/Throat oral cavity/pharynx/larynx Overall: oral mucosa clear 07/23/2017 None Full Exam - General 1994 Integument inspection of skin Location: chest 07/23/2017 incision from recent pacemaker with steri strips d/i Procedures No Procedures data Vital Signs Date Vital 08/08/2018 Blood Pressure 1: 98/56 Code: 8480-6 BMI: 32.9 Code: 53038- 5 Heart Rate 1: 35 bpm Height: 5'7" SpO2: 95% Weight: 210 lbs 05/29/2018 Blood Pressure 1: 112/68 Code: 8480-6 BMI: 33.4 Code: 10844-1 Heart Rate 1: 100 bpm Height: 5'7" SpO2: 96% Weight: 213 lbs 02/27/2018 Blood Pressure 1: 130/64 Code: 8480-6 Heart Rate 1: 90 bpm Height: 5'7" SpO2: 97% Weight: 11/28/2017 Blood Pressure 1: 118/70 Code: 8480-6 Heart Rate 1: 75 bpm Height: 5'7" SpO2: 97% Weight: 08/29/2017 Blood Pressure 1: 128/68 Code: 8480-6 Heart Rate 1: 72 bpm Height: 5'7" SpO2: 98% Weight: 07/23/2017 Blood Pressure 1: 138/76 Code: 8480-6 BMI: 33.2 Code: 37077-8 Heart Rate 1: 83 bpm Height: 5'7" SpO2: 98% Weight: 212 lbs Functional Status No Functional Status data History of Present Illness Symptom Name Status Result Effective Date Notes Quality constant 08/08/2018 None Quality watery 08/08/2018 None Quality worsening 08/08/2018 None Onset and Resolution sudden in onset 08/08/2018 None Onset of Symptom 1 weeks ago 08/08/2018 None Limitation on Activities moderately limits activities 08/08/2018 None Onset of Symptom 1 weeks ago 08/08/2018 None Frequency of Episodes daily 08/08/2018 None Frequency of Episodes >8 stools per day 08/08/2018 None Triggers no known associated factors 08/08/2018 None Quality non-insulin dependent 05/29/2018 None Severity mild 05/29/2018 None Alleviating Factors medication 05/29/2018 None Exacerbating Factors diet 05/29/2018 None Pertinent Findings Denies nausea 05/29/2018 None Quality primary hypertension 05/29/2018 None Quality stable 05/29/2018 None Onset and Resolution ongoing 05/29/2018 None Onset of Symptom during adulthood 05/29/2018 None Blood Pressure Values pt checking blood pressure - see scanned document 05/29/2018 None Alleviating Factors medication 05/29/2018 None Pertinent Findings Denies dizziness 05/29/2018 None Pertinent Findings edema 05/29/2018 in his ankles Test results Pt checking blood glucose at home, see scanned readings 05/29/2018 None Glucose monitoring twice daily 05/29/2018 None Test results HgbA1c level 6.5 05/29/2018 None Blood glucose levels greater than 120 05/29/2018 None Quality non-insulin dependent 02/27/2018 None Alleviating Factors medication 02/27/2018 None Exacerbating Factors diet 02/27/2018 None Pertinent Findings Denies nausea 02/27/2018 None Quality primary hypertension 02/27/2018 None Quality stable 02/27/2018 None Onset and Resolution ongoing 02/27/2018 None Onset of Symptom during adulthood 02/27/2018 None Blood Pressure Values pt checking blood pressure - see scanned document 02/27/2018 None Alleviating Factors medication 02/27/2018 None Pertinent Findings Denies dizziness 02/27/2018 None Pertinent Findings Denies dyspnea 02/27/2018 None Pertinent Findings edema 02/27/2018 in his ankles recently Test results Pt checking blood glucose at home, see scanned readings 02/27/2018 None Glucose monitoring twice daily 02/27/2018 None Test results HgbA1c level 6.5 02/27/2018 None Severity mild 02/27/2018 None Blood glucose levels greater than 120 02/27/2018 None diabetes mellitus Quality non-insulin dependent 11/28/2017 None diabetes mellitus Alleviating Factors medication 11/28/2017 None diabetes mellitus Exacerbating Factors diet 11/28/2017 None diabetes mellitus Pertinent Findings Denies nausea 11/28/2017 None hypertension Quality primary hypertension 11/28/2017 None hypertension Onset and Resolution ongoing 11/28/2017 None hypertension Onset of Symptom during adulthood 11/28/2017 None hypertension Blood Pressure Values pt checking blood pressure - see scanned document 11/28/2017 None hypertension Alleviating Factors medication 11/28/2017 None hypertension Pertinent Findings Denies dizziness 11/28/2017 None hypertension Pertinent Findings Denies dyspnea 11/28/2017 None hypertension Pertinent Findings Denies edema 11/28/2017 None diabetes mellitus Test results Pt checking blood glucose at home, see scanned readings 11/28/2017 None diabetes mellitus Glucose monitoring fasting 11/28/2017 None neck pain Quality acute 11/28/2017 None neck pain Location on the left 11/28/2017 None neck pain Quality intermittent 11/28/2017 None hypertension Quality stable 11/28/2017 None neck pain Onset and Resolution sudden in onset 11/28/2017 None neck pain Onset and Resolution ongoing 11/28/2017 None neck pain Onset of Symptom weeks ago 11/28/2017 None neck pain Exacerbating Factors position change 11/28/2017 None neck pain Mechanism of injury fall 11/28/2017 None diabetes mellitus Quality non-insulin dependent 08/29/2017 None diabetes mellitus Alleviating Factors medication 08/29/2017 None diabetes mellitus Exacerbating Factors diet 08/29/2017 None hypertension Quality primary hypertension 08/29/2017 None hypertension Onset and Resolution ongoing 08/29/2017 None hypertension Onset of Symptom during adulthood 08/29/2017 None hypertension Alleviating Factors medication 08/29/2017 None hypertension Blood Pressure Values pt checking blood pressure - see scanned document 08/29/2017 None diabetes mellitus Test results Pt checking blood glucose at home, see scanned readings 08/29/2017 None diabetes mellitus Glucose monitoring fasting 08/29/2017 None hypertension Pertinent Findings Denies dizziness 08/29/2017 None hypertension Pertinent Findings Denies dyspnea 08/29/2017 None hypertension Pertinent Findings edema 08/29/2017 in both ankles diabetes mellitus Pertinent Findings Denies nausea 08/29/2017 None diarrhea Quality intermittent 07/23/2017 None diarrhea Onset and Resolution ongoing 07/23/2017 None diarrhea Triggers no known associated factors 07/23/2017 None diarrhea Alleviating Factors medication 07/23/2017 None diabetes mellitus Quality non-insulin dependent 07/23/2017 None diabetes mellitus Test results Pt checking blood glucose at home, see scanned readings 07/23/2017 None diabetes mellitus Alleviating Factors medication 07/23/2017 None diabetes mellitus Exacerbating Factors diet 07/23/2017 None Advance Directives No Advance Directive data Encounters Encounter Performer Location Codes Date [id number]) [id number] EST. PATIENT, LEVEL IV Diagnosis: Type 2 diabetes mellitus with hyperglycemia[ICD10: E11.65] Diagnosis: Chronic kidney disease, stage 3 (moderate)[ICD10: N18.3] Diagnosis: Muscle weakness (generalized)[ICD10: M62.81] Diagnosis: Diarrhea, unspecified[ICD10: R19.7] Geneva Spaulding MD, [facility] CPT-4: 30220 08/08/2018 [id number]) [id number] EST. PATIENT, LEVEL IV Diagnosis: Type 2 diabetes mellitus with hyperglycemia[ICD10: E11.65] Diagnosis: Essential (primary) hypertension[ICD10: I10] Diagnosis: Chronic kidney disease, stage 3 (moderate)[ICD10: N18.3] Diagnosis: Primary generalized (osteo)arthritis[ICD10: M15.0] Geneva Spaulding MD, [facility] CPT-4: 68745 05/29/2018 [id number]) [id number] EST. PATIENT, LEVEL IV Diagnosis: Type 2 diabetes mellitus with hyperglycemia[ICD10: E11.65] Diagnosis: Essential (primary) hypertension[ICD10: I10] Diagnosis: Diarrhea, unspecified[ICD10: R19.7] Geneva Spaulding MD, [facility] CPT-4: 89711 02/27/2018 [id number]) [id number] EST. PATIENT, LEVEL IV Diagnosis: Essential (primary) hypertension[ICD10: I10] Diagnosis: Type 2 diabetes mellitus with hyperglycemia[ICD10: E11.65] Diagnosis: Chronic kidney disease, stage 3 (moderate)[ICD10: N18.3] Diagnosis: Cervicalgia[ICD10: M54.2] Geneva Spaulding MD, [facility] CPT-4: 25781 11/28/2017 ([id number]) [id number] EST. PATIENT, LEVEL III Diagnosis: Essential (primary) hypertension[ICD10: I10] Diagnosis: Type 2 diabetes mellitus with hyperglycemia[ICD10: E11.65] Diagnosis: Foot drop, left foot[ICD10: M21.372] Geneva Spaulding MD, [facility] CPT-4: 20395 08/29/2017 OFFICE VISIT, NEW - LEVEL 4 Diagnosis: Essential (primary) hypertension[ICD10: I10] Diagnosis: Type 2 diabetes mellitus with hyperglycemia[ICD10: E11.65] Diagnosis: Chronic kidney disease, stage 3 (moderate)[ICD10: N18.3] Diagnosis: Muscle weakness (generalized)[ICD10: M62.81] [facility] CPT-4: 30664 07/23/2017 Plan of Care Planned Activity Notes Codes Status Date Visit Plan: DM-change jardiance to 1/2 tab daily and administer in the morning instead of bedtime- continue to monitor blood sugars Diarrhea -improved- no diarrhea since this morning -increase probiotics -continue electrolyte drinks -check labs and stool studies-call if not improving or if any worse CKD-check labs HTN-slightly low today but readings from MS okay -increase fluids as directed and monitor blood pressure and pulse 08/08/2018 Appointment: Geneva Case WPtel: [phone] (30 min) Complex 08/08/2018 Patient Education: Patient Medication Summary Completed 08/08/2018 Patient Education: Diabetes Completed 08/08/2018 Visit Plan: Diabetes Mellitus - controlled - per recent FSBS reports. I have recommended for the patient to have follow up labs prior to the next office visit. The patient has been instructed to continue with current medications as previously directed, continue with regular FSBS monitoring to assure continued control of diabetes. Pt to call for any acute concerns, complaints, or if the blood glucose readings are starting to become less controlled. Hypertension - well controlled - continue with current medications, continue with no added salt diet. Pt has been encouraged to exercise daily. The pt has been advised to call the office if there are any acute concerns about change in blood pressure readings at home. Arthritis-schedule tylenol twice daily -then prn -rx for voltaren gel to use on hands as directed-call if pain uncontrolled CKD-check labs 05/29/2018 Appointment: [place] Case WPtel: [address] [phone] (30 min) Complex 05/29/2018 Patient Education: Patient Medication Summary Completed 05/29/2018 Patient Education: Diabetes Completed 05/29/2018 Visit Plan: Diabetes Mellitus - controlled - per recent FSBS reports. I have recommended for the patient to have follow up labs prior to the next office visit. The patient has been instructed to continue with current medications as previously directed, continue with regular FSBS monitoring to assure continued control of diabetes. Pt to call for any acute concerns, complaints, or if the blood glucose readings are starting to become less controlled. Hypertension - well controlled - continue with current medications, continue with no added salt diet. Pt has been encouraged to exercise daily. The pt has been advised to call the office if there are any acute concerns about change in blood pressure readings at home. Kifbuanr-ntuhvynluvyq-flvuk probiotics as directed 02/27/2018 Appointment: [place] Case WPtel: [address] [phone] (15 min) Moderate 02/27/2018 Patient Education: Patient Medication Summary Completed 02/27/2018 Patient Education: Diabetes Completed 02/27/2018 Visit Plan: Hypertension - well controlled - continue with current medications, continue with no added salt diet. Pt has been encouraged to exercise daily. The pt has been advised to call the office if there are any acute concerns about change in blood pressure readings at home. Diabetes Mellitus - controlled - per recent FSBS reports. I have recommended for the patient to have follow up labs prior to the next office visit. The patient has been instructed to continue with current medications as previously directed, continue with regular FSBS monitoring to assure continued control of diabetes. Pt to call for any acute concerns, complaints, or if the blood glucose readings are starting to become less controlled. Neck Pain- pt to start with aspercreme or biofreeze to neck three times daily and start neck exercises daily-tylenol before bed Chronic renal disease-check labs 11/28/2017 [facility]ment: [place] [facility]el[facility] [phone] [phone] (15 min) Moderate 11/28/2017 Patient Education: Patient Medication Summary Completed 11/28/2017 Visit Plan: Hypertension - well controlled - continue with current medications, continue with no added salt diet. Pt has been encouraged to exercise daily. The pt has been advised to call the office if there are any acute concerns about change in blood pressure readings at home. Diabetes Mellitus - controlled - per recent FSBS reports. I have recommended for the patient to have follow up labs prior to the next office visit. The patient has been instructed to continue with current medications as previously directed, continue with regular FSBS monitoring to assure continued control of diabetes. Pt to call for any acute concerns, complaints, or if the blood glucose readings are starting to become less controlled. 08/29/2017 Visit Plan: Hypertension - well controlled - continue with current medications, continue with no added salt diet. Pt has been encouraged to exercise daily. The pt has been advised to call the office if there are any acute concerns about change in blood pressure readings at home. Diabetes Mellitus - controlled - per recent FSBS reports. I have recommended for the patient to have follow up labs prior to the next office visit. The patient has been instructed to continue with current medications as previously directed, continue with regular FSBS monitoring to assure continued control of diabetes. Pt to call for any acute concerns, complaints, or if the blood glucose readings are starting to become less controlled. Left foot drop-patient is ambulatory- uses AFO-patient needs new orthosis -his current left ankle foot orthosis is cracked and the carbon layers are delaminating. This orthosis is not repairable and due to the condition of the current orthosis, he is at high risk for falls. It is medically necessary for the patient to wear the left ankle foot orthosis and will need this for a long duration due to the patient's foot drop. Patient will functionally benefit from orthosis to provide stability and control for safer ambulation. 08/29/2017 Appointment: [place] Case WPtel: [address] [place], [place] [phone] (15 min) Moderate 08/29/2017 Patient Education: Patient Medication Summary Completed 08/29/2017 Visit Plan: Hypertension - well controlled - continue with current medications, continue with no added salt diet. Pt has been encouraged to exercise daily. The pt has been advised to call the office if there are any acute concerns about change in blood pressure readings at home. Bradycardia- resolved with pacemaker Diabetes Mellitus - I have recommended for the patient to have follow up labs prior to the next office visit. The patient has been instructed to continue with current medications as previously directed, continue with regular FSBS monitoring to assure continued control of diabetes. Pt to call for any acute concerns, complaints, or if the blood glucose readings are starting to become less controlled. Generalized wgtepawd-pweclxsid-rncjmkxm PT- plan to move back to [place] when able 07/23/2017 Appointment: [place] Case WPtel: [phone] [place] New Patient 07/23/2017 Patient Education: Patient Medication Summary Completed 07/23/2017 Instructions Comment INCREASE PROBIOTIC TO TID X 1 WEEK THEN BID THEREAFTER CHECK LABS, UA AND STOOL STUDIES DECREASE JARDIANCE TO 1/2 PILL DAILY -GIVE IN THE MORNING INSTEAD OF BEDTIME . DM-change jardiance to 1/2 tab daily and administer in the morning instead of bedtime- continue to monitor blood sugars Diarrhea -improved- no diarrhea since this morning -increase probiotics - continue electrolyte drinks -check labs and stool studies-call if not improving or if any worse CKD-check labs HTN-slightly low today but readings from MS okay -increase fluids as directed and monitor blood pressure and pulse tylenol 325mg at bedtime check labs if due biofreeze to neck -call if pain does not resolve . Hypertension - well controlled - continue with current medications, continue with no added salt diet. Pt has been encouraged to exercise daily. The pt has been advised to call the office if there are any acute concerns about change in blood pressure readings at home. Diabetes Mellitus - controlled - per recent FSBS reports. I have recommended for the patient to have follow up labs prior to the next office visit. The patient has been instructed to continue with current medications as previously directed, continue with regular FSBS monitoring to assure continued control of diabetes. Pt to call for any acute concerns, complaints, or if the blood glucose readings are starting to become less controlled. Neck Pain- pt to start with aspercreme or biofreeze to neck three times daily and start neck exercises daily-tylenol before bed Chronic renal disease-check labs SLIDING SCALE INSULIN FAX BS LOG IN 2 WEEKS D/C OLANZAPINE . Hypertension - well controlled - continue with current medications, continue with no added salt diet. Pt has been encouraged to exercise daily. The pt has been advised to call the office if there are any acute concerns about change in blood pressure readings at home. Bradycardia-resolved with pacemaker Diabetes Mellitus - I have recommended for the patient to have follow up labs prior to the next office visit. The patient has been instructed to continue with current medications as previously directed, continue with regular FSBS monitoring to assure continued control of diabetes. Pt to call for any acute concerns, complaints, or if the blood glucose readings are starting to become less controlled. Generalized zusllvvb-yqixtwlvd-tssauhtk PT-plan to move back to [place] when able SCHEDULE TYLENOL TWICE DAILY AND PRN FOR BILATERAL HAND PAIN ALSO VOLTAREN GEL 1% 2GM QID CHECK LABS TODAY . Diabetes Mellitus - controlled - per recent FSBS reports. I have recommended for the patient to have follow up labs prior to the next office visit. The patient has been instructed to continue with current medications as previously directed, continue with regular FSBS monitoring to assure continued control of diabetes. Pt to call for any acute concerns, complaints, or if the blood glucose readings are starting to become less controlled. Hypertension - well controlled - continue with current medications, continue with no added salt diet. Pt has been encouraged to exercise daily. The pt has been advised to call the office if there are any acute concerns about change in blood pressure readings at home. Arthritis-schedule tylenol twice daily -then prn -rx for voltaren gel to use on hands as directed-call if pain uncontrolled CKD-check labs PROBIOTIC BID X 1 WEEK THEN DAILY . Diabetes Mellitus - controlled - per recent FSBS reports. I have recommended for the patient to have follow up labs prior to the next office visit. The patient has been instructed to continue with current medications as previously directed, continue with regular FSBS monitoring to assure continued control of diabetes. Pt to call for any acute concerns, complaints, or if the blood glucose readings are starting to become less controlled. Hypertension - well controlled - continue with current medications, continue with no added salt diet. Pt has been encouraged to exercise daily. The pt has been advised to call the office if there are any acute concerns about change in blood pressure readings at home. Kbdwgiag-botmvrvckyqa-heabk probiotics as directed . Hypertension - well controlled - continue with current medications, continue with no added salt diet. Pt has been encouraged to exercise daily. The pt has been advised to call the office if there are any acute concerns about change in blood pressure readings at home. Diabetes Mellitus - controlled - per recent FSBS reports. I have recommended for the patient to have follow up labs prior to the next office visit. The patient has been instructed to continue with current medications as previously directed, continue with regular FSBS monitoring to assure continued control of diabetes. Pt to call for any acute concerns, complaints, or if the blood glucose readings are starting to become less controlled. . Hypertension - well controlled - continue with current medications, continue with no added salt diet. Pt has been encouraged to exercise daily. The pt has been advised to call the office if there are any acute concerns about change in blood pressure readings at home. Diabetes Mellitus - controlled - per recent FSBS reports. I have recommended for the patient to have follow up labs prior to the next office visit. The patient has been instructed to continue with current medications as previously directed, continue with regular FSBS monitoring to assure continued control of diabetes. Pt to call for any acute concerns, complaints, or if the blood glucose readings are starting to become less controlled. Left foot drop-patient is ambulatory-uses AFO-patient needs new orthosis -his current left ankle foot orthosis is cracked and the carbon layers are delaminating. This orthosis is not repairable and due to the condition of the current orthosis, he is at high risk for falls. It is medically necessary for the patient to wear the left ankle foot orthosis and will need this for a long duration due to the patient's foot drop. Patient will functionally benefit from orthosis to provide stability and control for safer ambulation.
--- OUTSIDE RECORDS SUMMARY | 2018-08-21 10:14 | XMS REPORT | CCD ---
Author Author Geneva Case MD, [facility] Address [address] [place] [address] Phone Care Team Providers Care Station Engineer Chief Name Role Phone PP Unavailable CCM Unavailable Summary Purpose Interface Exchange Insurance Providers Payer name Policy type / Coverage type Covered alliance party ID Effective Begin Date Effective End Date WPS Medicare Part B Medicare Part B [id number] Unknown [employer] Flame Data Medicare Part B [id number] Unknown Family history Mother Diagnosis Age At Onset No Known Diseases N/A Father Diagnosis Age At Onset No Known Diseases N/A Social History Social History Element Codes Description Effective Dates Living arrangements Unknown Assisted Living [place] 11/28/2017 Marital status Unknown 07/23/2017 Employment Unknown [...] Fill Instructions loperamide 2 mg tablet RxNorm: 401916 2 after 1st stool & 1 after each add/max 4 in 24 hours Tablet(s) PO 08/12/2018 12/09/2018 Active Vitamin D3 1,000 unit tablet RxNorm: 618536 1 Tablet(s) PO daily 07/22/2018 06/16/2019 Active amlodipine 5 mg tablet RxNorm: 583968 TAKE ONE TABLET BY MOUTH DAILY 07/01/2018 06/25/2019 Active Generic For:NORVASC 5MG 06/30/2018 1:40:01 PM gabapentin 100 mg capsule RxNorm: 086318 TAKE 1 CAPSULE BY MOUTH THREE TIMES DAILY 07/01/2018 01/26/2019 Active Generic For:NEURONTIN 100MG 06/30/2018 1:39:54 PM Tylenol 325 mg tablet RxNorm: 418236 TAKE 1 TABLET BY MOUTH TWICE DAILY 06/17/2018 06/11/2019 Active Generic For:TYLENOL 325MG 06/17/2018 12:45:03 PM diclofenac 1 % topical gel RxNorm: 886399 APPLY 2 GRAMS TOP TO HANDS FOUR TIMES DAILY BILATERALLY 06/10/2018 10/07/2018 Active diclofenac 1 % topical gel RxNorm: 722752 APPLY 2 GRAMS TOP TO HANDS FOUR TIMES DAILY BILATERALLY 06/10/2018 06/09/2018 Inactive Protonix 40 mg tablet,delayed release RxNorm: 035916 TAKE 1 TABLET BY MOUTH EVERY MORNING 06/09/2018 10/06/2018 Active Generic For:PROTONIX 40MG 06/09/2018 2:16:07 PM tamsulosin 0.4 mg capsule RxNorm: 131472 TAKE 1 CAPSULE BY MOUTH ONCE DAILY 06/04/2018 05/29/2019 Active Generic For:FLOMAX 0.4MG 06/03/2018 4:14:32 PM N O T I C E Last quantity doesn't match original quantity glimepiride 2 mg tablet RxNorm: 248824 TAKE 1 TABLET BY MOUTH ONCE DAILY 05/26/2018 04/20/2019 Active Generic For:AMARYL 2MG 05/26/2018 1:31:32 PM Floranex 100 million cell oral granules in packet RxNorm: 1 Tablet(s) PO daily 05/23/2018 09/19/2018 Active Floranex 100 million cell oral granules in packet RxNorm: 1 Tablet(s) PO daily 05/23/2018 05/22/2018 Inactive Proscar 5 mg tablet RxNorm: 137954 TAKE 1 TABLET BY MOUTH ONCE DAILY 05/05/2018 10/31/2018 Active Generic For:PROSCAR 5MG 05/05/2018 9:23:48 AM gabapentin 100 mg capsule RxNorm: 544685 TAKE 1 CAPSULE BY MOUTH THREE TIMES DAILY 04/07/2018 06/30/2018 Inactive Generic For:NEURONTIN 100MG 04/07/2018 10:37:42 AM allopurinol 100 mg tablet RxNorm: 346605 TAKE 1 TABLET BY MOUTH TWICE DAILY 03/20/2018 09/15/2018 Active 03/19/2018 9:53:25 AM pravastatin 40 mg tablet RxNorm: 449016 TAKE ONE TABLET BY MOUTH EVERY NIGHT AT BEDTIME 03/13/2018 09/08/2018 Active Generic For:PRAVACHOL 40MG 03/13/2018 9:02:23 AM N O T I C E Last quantity doesn't match original quantity Protonix 40 mg tablet,delayed release RxNorm: 158210 TAKE 1 TABLET BY MOUTH EVERY MORNING 03/13/2018 06/08/2018 Inactive Generic For:PROTONIX 40MG 03/13/2018 9:02:28 AM N O T I C E Last quantity doesn't match original quantity Plavix 75 mg tablet RxNorm: 065728 TAKE 1 TABLET BY MOUTH ONCE DAILY 03/10/2018 10/05/2018 Active Generic For:*PLAVIX 75MG 03/10/2018 10:12:55 AM tamsulosin 0.4 mg capsule RxNorm: 204043 TAKE 1 CAPSULE BY MOUTH ONCE DAILY 03/10/2018 06/03/2018 Inactive Generic For:FLOMAX 0.4MG 03/10/2018 10:12:59 AM Jardiance 10 mg tablet RxNorm: 5751623 1 Tablet(s) PO daily 02/20/2018 08/18/2018 Active Jardiance 10 mg tablet RxNorm: 2512750 1 Tablet(s) PO daily 02/20/2018 02/19/2018 Inactive Plavix 75 mg tablet RxNorm: 361175 1 Tablet(s) PO QHS 02/12/2018 03/09/2018 Inactive tamsulosin 0.4 mg capsule RxNorm: 820453 1 Capsule(s) PO daily 02/12/2018 03/09/2018 Inactive Tylenol 325 mg tablet RxNorm: 347382 1 Tablet(s) PO QHS and every 6 hours prn 02/03/2018 02/02/2018 Inactive Tylenol 325 mg tablet RxNorm: 112704 1 Tablet(s) PO QHS and every 6 hours prn 02/03/2018 06/02/2018 Inactive loperamide 2 mg tablet RxNorm: 472664 2 after 1st stool & 1 after each add/max 4 in 24 hours Tablet(s) PO 02/03/2018 02/02/2018 Inactive loperamide 2 mg tablet RxNorm: 030534 2 after 1st stool & 1 after each add/max 4 in 24 hours Tablet(s) PO 02/03/2018 06/02/2018 Inactive Vitamin B-12 1,000 mcg tablet RxNorm: 784849 TAKE 1 TABLET BY MOUTH ONCE DAILY 01/27/2018 12/22/2018 Active 01/27/2018 10:10:15 AM glimepiride 2 mg tablet RxNorm: 350673 TAKE 1 TABLET BY MOUTH ONCE DAILY 01/27/2018 05/25/2018 Inactive Generic For:AMARYL 2MG 01/27/2018 10:09:58 AM Januvia 100 mg tablet RxNorm: 675834 TAKE 1 TABLET BY MOUTH ONCE DAILY 01/20/2018 02/19/2018 Inactive 01/20/2018 9:58:08 AM Alcohol Pads RxNorm: 355511 1 [facility] 01/07/2018 No Stop Date Active amlodipine 5 mg tablet RxNorm: 800220 TAKE ONE TABLET BY MOUTH DAILY 01/06/2018 06/30/2018 Inactive Generic For:NORVASC 5MG 01/06/2018 10:33:58 AM N O T I C E Last quantity doesn't match original quantity gabapentin 100 mg capsule RxNorm: 970724 TAKE 1 CAPSULE BY MOUTH THREE TIMES DAILY 01/06/2018 04/06/2018 Inactive Generic For:NEURONTIN 100MG 01/06/2018 10:33:55 AM N O T I C E Last quantity doesn't match original quantity Protonix 40 mg tablet,delayed release RxNorm: 033063 TAKE 1 TABLET BY MOUTH EVERY MORNING 12/16/2017 03/12/2018 Inactive Generic For:PROTONIX 40MG Proscar 5 mg tablet RxNorm: 479059 TAKE 1 TABLET BY MOUTH ONCE DAILY 11/04/2017 05/02/2018 Inactive Generic For:PROSCAR 5MG 11/04/2017 9:47:27 AM Aspirin Low Dose 81 mg tablet,delayed release RxNorm: 689610 1 Tablet(s) PO [facility] 10/21/2017 10/15/2018 Active amlodipine 5 mg tablet RxNorm: 432736 TAKE ONE TABLET BY MOUTH DAILY 10/07/2017 01/04/2018 Inactive Generic For:NORVASC 5MG 10/07/2017 9:55:37 AM gabapentin 100 mg capsule RxNorm: 879804 TAKE 1 CAPSULE BY MOUTH THREE TIMES DAILY 10/07/2017 01/04/2018 Inactive Generic For:NEURONTIN 100MG 10/07/2017 9:55:26 AM Januvia 100 mg tablet RxNorm: 857064 TAKE 1 TABLET BY MOUTH ONCE DAILY 09/23/2017 01/19/2018 Inactive 09/23/2017 9:25:24 AM pravastatin 40 mg tablet RxNorm: 743696 TAKE ONE TABLET BY MOUTH EVERY NIGHT AT BEDTIME 09/19/2017 03/12/2018 Inactive Generic For:PRAVACHOL 40MG 09/19/2017 9:12:02 AM Protonix 40 mg tablet,delayed release RxNorm: 704561 TAKE 1 TABLET BY MOUTH EVERY MORNING 09/16/2017 12/15/2017 Inactive Generic For:PROTONIX 40MG 09/16/2017 9:50:22 AM amlodipine 5 mg tablet RxNorm: 294950 TAKE ONE TABLET BY MOUTH DAILY 09/09/2017 10/06/2017 Inactive Generic For:NORVASC 5MG 09/09/2017 9:16:37 AM gabapentin 100 mg capsule RxNorm: 767064 TAKE 1 CAPSULE BY MOUTH THREE TIMES DAILY 09/09/2017 10/06/2017 Inactive Generic For:NEURONTIN 100MG 09/09/2017 9:16:33 AM Vitamin D3 1,000 unit tablet RxNorm: 335833 1 Tablet(s) PO daily 09/04/2017 07/21/2018 Inactive Vitamin D3 1,000 unit tablet RxNorm: 640156 1 Tablet(s) PO daily 09/03/2017 09/03/2017 Inactive glimepiride 2 mg tablet RxNorm: 790699 TAKE 1 TABLET BY MOUTH ONCE DAILY 09/02/2017 01/26/2018 Inactive Generic For:AMARYL 2MG 09/02/2017 9:35:29 AM Vitamin B-12 1,000 mcg tablet RxNorm: 970184 TAKE 1 TABLET BY MOUTH ONCE DAILY 09/02/2017 01/26/2018 Inactive 09/02/2017 9:35:38 AM pravastatin 40 mg tablet RxNorm: 406065 1 Tablet(s) PO QHS 08/22/2017 08/21/2017 Inactive pravastatin 40 mg tablet RxNorm: 632174 1 Tablet(s) PO QHS 08/22/2017 09/18/2017 Inactive glimepiride 2 mg tablet RxNorm: 172191 1 Tablet(s) PO daily 07/24/2017 09/01/2017 Inactive hydrocodone 5 mg-acetaminophen 325 mg tablet RxNorm: 873582 1-2 Tablet(s) PO Q4H as needed for pain 07/23/2017 08/28/2017 Inactive Proscar 5 mg tablet RxNorm: 051639 1 Tablet(s) PO daily No Start Date 11/03/2017 Inactive Metamucil oral packet RxNorm: 1 packet PO daily No Start Date 07/23/2017 Inactive Vitamin B-12 1,000 mcg tablet RxNorm: 147020 1 Tablet(s) PO daily No Start Date 09/01/2017 Inactive tamsulosin 0.4 mg capsule RxNorm: 767113 1 Capsule(s) PO daily No Start Date 02/11/2018 Inactive Plavix 75 mg tablet RxNorm: 028505 1 Tablet(s) PO QHS No Start Date 02/11/2018 Inactive Alcohol Pads RxNorm: 824530 1 TOP No Start Date 01/06/2018 Inactive Vitamin D3 1,000 unit tablet RxNorm: 727119 1 Tablet(s) PO daily No Start Date 09/02/2017 Inactive gabapentin 100 mg capsule RxNorm: 480127 1 Capsule(s) PO TID No Start Date 09/08/2017 Inactive olanzapine 5 mg tablet RxNorm: 829074 1 Tablet(s) PO QHS No Start Date 07/22/2017 Inactive Lipitor 40 mg tablet RxNorm: 208301 1 Tablet(s) PO QHS No Start Date 08/21/2017 Inactive Januvia 100 mg tablet RxNorm: 043319 1 Tablet(s) PO QHS No Start Date 09/22/2017 Inactive folic acid 1 mg tablet RxNorm: 824337 1 Tablet(s) PO daily No Start Date 07/23/2017 Inactive hydrocodone 5 mg-acetaminophen 325 mg tablet RxNorm: 346213 1 Tablet(s) PO Q4H as needed for pain No Start Date 07/22/2017 Inactive Protonix 40 mg tablet,delayed release RxNorm: 347021 1 Tablet(s) PO daily No Start Date 09/15/2017 Inactive allopurinol 100 mg tablet RxNorm: 392564 1 Tablet(s) PO BID No Start Date 03/19/2018 Inactive amlodipine 5 mg tablet RxNorm: 018224 1 Tablet(s) PO daily No Start Date 09/08/2017 Inactive Aspirin Low Dose 81 mg tablet,delayed release RxNorm: 111347 1 Tablet(s) PO QHS No Start Date [...] Code Result Date Clostridium Diff Tox A/B Fdp018 Cdiff Negative 08/11/2018 Urinalysis Ord28 U-Color Yellow [...] 94.4 fl 08/08/2018 Cbc With Differential Ord2 [place]% 9.2 % 08/08/2018 Cbc With Differential Ord2 [...] 1.26 K/ul 08/08/2018 Cbc With Differential Ord2 [place] ABS# 0.9 K/ul 08/08/2018 Cbc With Differential Ord2 Eos ABS# 0.1 K/ul 08/08/2018 Cbc With Differential Ord2 Baso ABS# 0.0 K/ul 08/08/2018 Comp Metabolic Utb272 NA 135 mEq/L 08/08/2018 Comp Metabolic Kpz378 K 3.7 mEq/L 08/08/2018 Comp Metabolic Klt038 CL 106 mEq/L 08/08/2018 Comp Metabolic Bjj836 CO2 18.0 mEq/L 08/08/2018 Comp Metabolic Wqu891 ANION GAP 15 08/08/2018 Comp Metabolic Thk080 GLUCOSE 123 mg/dL 08/08/2018 Comp Metabolic Cjq797 Creat 1.5 mg/dL 08/08/2018 Comp Metabolic Ann821 eGFR 49 ml/min/1.73m2 08/08/2018 Comp Metabolic Zyo429 BUN 32 mg/dL 08/08/2018 Comp Metabolic Xaw249 B/C Ratio 21.9 Ratio 08/08/2018 Comp Metabolic Nvl395 CALCIUM 8.2 mg/dL 08/08/2018 Comp Metabolic Qbx226 ALK PHOS 58 U/L 08/08/2018 Comp Metabolic Jgm966 AST(SGOT) 11 U/L 08/08/2018 Comp Metabolic Flx075 ALT(SGPT) 11 U/L 08/08/2018 Comp Metabolic Uvn257 BILI T 1.0 mg/dL 08/08/2018 Comp Metabolic Ytg871 ALBUMIN 3.5 g/dL 08/08/2018 Comp Metabolic Mlo686 TPRO 5.8 g/dL 08/08/2018 Comp Metabolic Ele760 GLOB 2.3 g/dL 08/08/2018 Comp Metabolic Zwe294 A/G Ratio 1.6 Ratio 08/08/2018 Comp Metabolic Xsg933 Osmo 278 mOsmo 08/08/2018 %Hba1C Sxo715 % HbA1c 03895- 6 7.0 % 05/29/2018 %Hba1C Yme219 Gluc Ave 154 mg/dL 05/29/2018 Comp Metabolic Utz747 NA 139 mEq/L 05/29/2018 Comp Metabolic Rsl090 K 4.1 mEq/L 05/29/2018 Comp Metabolic Vtp191 CL 109 mEq/L 05/29/2018 Comp Metabolic Vpc784 CO2 23.0 mEq/L 05/29/2018 Comp Metabolic Uqn170 ANION GAP 11 05/29/2018 Comp Metabolic Vwf394 GLUCOSE 164 mg/dL 05/29/2018 Comp Metabolic Woi656 Creat 1.4 mg/dL 05/29/2018 Comp Metabolic Wgk153 eGFR 50 ml/min/1.73m2 05/29/2018 Comp Metabolic Ruy115 BUN 30 mg/dL 05/29/2018 Comp Metabolic Vxa794 B/C Ratio 21.0 Ratio 05/29/2018 Comp Metabolic Wqy312 CALCIUM 9.2 mg/dL 05/29/2018 Comp Metabolic Sda659 ALK PHOS 55 U/L 05/29/2018 Comp Metabolic Dgq407 AST(SGOT) 11 U/L 05/29/2018 Comp Metabolic Vto603 ALT(SGPT) 15 U/L 05/29/2018 Comp Metabolic Qfz985 BILI T 0.8 mg/dL 05/29/2018 Comp Metabolic Iop594 ALBUMIN 4.0 g/dL 05/29/2018 Comp Metabolic Bjh978 TPRO 6.3 g/dL 05/29/2018 Comp Metabolic Umg447 GLOB 2.4 g/dL 05/29/2018 Comp Metabolic Aow576 A/G Ratio 1.7 Ratio 05/29/2018 Comp Metabolic Koz392 Osmo 287 mOsmo 05/29/2018 Cbc With Differential [...] 31.1 pg 05/29/2018 Cbc With Differential Ord2 [place]% 8.9 % 05/29/2018 Cbc With Differential Ord2 [...] 1.90 K/ul 05/29/2018 Cbc With Differential Ord2 [place] ABS# 0.7 K/ul 05/29/2018 Cbc With Differential [...] 30.6 pg 11/29/2017 Cbc With Differential Ord2 [place]% 8.0 % 11/29/2017 Cbc With Differential Ord2 [...] 1.46 K/ul 11/29/2017 Cbc With Differential Ord2 [place] ABS# 0.6 K/ul 11/29/2017 Cbc With Differential Ord2 Eos ABS# 0.2 K/ul 11/29/2017 Cbc With Differential Ord2 Baso ABS# 0.0 K/ul 11/29/2017 Lipid Ord30 CHOL 115 mg/dL 11/29/2017 Lipid Ord30 HDL 40.0 mg/dl 11/29/2017 Lipid Ord30 TRIG 114 mg/dL 11/29/2017 Lipid Ord30 LDL 52 mg/dL 11/29/2017 Lipid Ord30 C/HDL 2.9 Ratio 11/29/2017 %Hba1C Wpa813 % HbA1c 04907- 6 6.5 % 11/29/2017 %Hba1C Hnp493 Gluc Ave 140 mg/dL 11/29/2017 Comp Metabolic Vqt079 NA 140 mEq/L 11/29/2017 Comp Metabolic Koz377 K 3.6 mEq/L 11/29/2017 Comp Metabolic Qon327 CL 106 mEq/L 11/29/2017 Comp Metabolic Dxk739 CO2 24.0 mEq/L 11/29/2017 Comp Metabolic Atp450 ANION GAP 14 11/29/2017 Comp Metabolic Wsv619 GLUCOSE 151 mg/dL 11/29/2017 Comp Metabolic Hvp031 Creat 1.2 mg/dL 11/29/2017 Comp Metabolic Bse008 eGFR 61 ml/min/1.73m2 11/29/2017 Comp Metabolic Xxj807 BUN 34 mg/dL 11/29/2017 Comp Metabolic Uqu978 B/C Ratio 28.3 Ratio 11/29/2017 Comp Metabolic Atb817 CALCIUM 8.9 mg/dL 11/29/2017 Comp Metabolic Eod143 ALK PHOS 69 U/L 11/29/2017 Comp Metabolic Ram711 AST(SGOT) 13 U/L 11/29/2017 Comp Metabolic Yeo941 ALT(SGPT) 16 U/L 11/29/2017 Comp Metabolic Xmq991 BILI T 0.7 mg/dL 11/29/2017 Comp Metabolic Rhc052 ALBUMIN 3.5 g/dL 11/29/2017 Comp Metabolic Ryc416 TPRO 5.7 g/dL 11/29/2017 Comp Metabolic Xnj784 GLOB 2.2 g/dL 11/29/2017 Comp Metabolic Ldd752 A/G Ratio 1.6 Ratio 11/29/2017 Comp Metabolic Nrk945 Osmo 290 mOsmo 11/29/2017 Review of Systems [...] 1: 98/56 Code: 8480-6 BMI: 32.9 Code: 58573- 5 Heart Rate 1: 35 bpm Height: 5'7" SpO2: 95% Weight: 210 lbs 05/29/2018 Blood Pressure 1: 112/68 Code: 8480-6 BMI: 33.4 Code: 51037-5 Heart Rate 1: 100 bpm Height: 5'7" [...] 1: 138/76 Code: 8480-6 BMI: 33.2 Code: 44101-3 Heart Rate 1: 83 bpm Height: 5'7" [...] data Encounters Encounter Performer Location Codes Date ([id number]) 17507 EST. PATIENT, LEVEL IV Diagnosis: Type 2 diabetes mellitus with hyperglycemia[ICD10: E11.65] Diagnosis: Chronic kidney disease, stage 3 (moderate)[ICD10: N18.3] Diagnosis: Muscle weakness (generalized)[ICD10: M62.81] Diagnosis: Diarrhea, unspecified[ICD10: R19.7] Geneva Spaulding MD, [facility] CPT-4: 55435 08/08/2018 ([id number]) [id number] EST. PATIENT, LEVEL IV Diagnosis: Type 2 diabetes mellitus with hyperglycemia[ICD10: E11.65] Diagnosis: Essential (primary) hypertension[ICD10: I10] Diagnosis: Chronic kidney disease, stage 3 (moderate)[ICD10: N18.3] Diagnosis: Primary generalized (osteo)arthritis[ICD10: M15.0] Geneva Spaulding MD, [facility] CPT-4: 09300 05/29/2018 ([id number]) 60361 EST. PATIENT, LEVEL IV Diagnosis: Type 2 diabetes mellitus with hyperglycemia[ICD10: E11.65] Diagnosis: Essential (primary) hypertension[ICD10: I10] Diagnosis: Diarrhea, unspecified[ICD10: R19.7] Geneva Spaulding MD, [facility] CPT-4: 61154 02/27/2018 ([id number]) 41997 EST. PATIENT, LEVEL IV Diagnosis: Essential (primary) hypertension[ICD10: I10] Diagnosis: Type 2 diabetes mellitus with hyperglycemia[ICD10: E11.65] Diagnosis: Chronic kidney disease, stage 3 (moderate)[ICD10: N18.3] Diagnosis: Cervicalgia[ICD10: M54.2] Geneva Spaulding MD, [facility] CPT-4: 80009 11/28/2017 ([id number]) 82928 EST. PATIENT, LEVEL III Diagnosis: Essential (primary) hypertension[ICD10: I10] Diagnosis: Type 2 diabetes mellitus with hyperglycemia[ICD10: E11.65] Diagnosis: Foot drop, left foot[ICD10: M21.372] Geneva Spaulding MD, [facility] CPT-4: 34860 08/29/2017 OFFICE VISIT, NEW - LEVEL 4 Diagnosis: Essential (primary) hypertension[ICD10: I10] Diagnosis: Type 2 diabetes mellitus with hyperglycemia[ICD10: E11.65] Diagnosis: Chronic kidney disease, stage 3 (moderate)[ICD10: N18.3] Diagnosis: Muscle weakness (generalized)[ICD10: M62.81] [facility] CPT-4: 52102 07/23/2017 Plan of Care Planned Activity Notes Codes Status Date Visit Plan: DM-change jardiance to 1/2 tab daily and administer in the morning instead of bedtime- continue to monitor blood sugars Diarrhea -improved- no diarrhea since this morning -increase probiotics -continue electrolyte drinks -check labs and stool studies-call if not improving or if any worse CKD-check labs HTN-slightly low today but readings from [place] okay -increase fluids as directed and monitor blood pressure and pulse 08/08/2018 Appointment: Geneva Case WPtel: [phone] (30 min) Complex 08/08/2018 Patient Education: Patient [...] labs 05/29/2018 Appointment: Geneva Case WPtel: [phone] [phone] (30 min) Complex 05/29/2018 Patient Education: Patient [...] change in blood pressure readings at home. Szntgoqn-trgvzzntnzhb-oguqn probiotics as directed 02/27/2018 Appointment: Geneva Case WPtel: [phone] [phone] (15 min) Moderate 02/27/2018 Patient Education: Patient [...] labs 11/28/2017 [facility]ointment: [place] [phone] [phone] (15 min) Moderate 11/28/2017 Patient Education: Patient [...] safer ambulation. 08/29/2017 Appointment: Geneva Case WPtel: [address] [place], [place] [phone] (15 min) Moderate 08/29/2017 Patient Education: Patient [...] are starting to become less controlled. Generalized imtwqriu-nijmbxqli-omalswgk PT- plan to move back to [place] when able 07/23/2017 Appointment: Geneva Case WPtel: [facility] [phone] [place] New Patient 07/23/2017 Patient Education: Patient [...] labs HTN-slightly low today but readings from [place] okay -increase fluids as directed and monitor [...] are starting to become less controlled. Generalized urewbnfj-zkxbdbjta-qmduggsw PT-plan to move back to [place] when able SCHEDULE TYLENOL TWICE DAILY AND [...] change in blood pressure readings at home. Fogihkgp-ijvkjuljjikh-lcuvu probiotics as directed . Hypertension - well [...]
--- NOTE | 2018-08-21 10:15 | NUR ---
breakfast order called to kitchen, patient will be taken to [address]
--- OUTSIDE RECORDS SUMMARY | 2018-08-21 10:19 | XMS REPORT | CCD ---
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 Name Role Phone PP Unavailable CCM Unavailable Summary Purpose Interface Exchange Insurance Providers Payer name Policy type / Coverage type Covered libertarian ID Effective Begin Date Effective End Date WPS Medicare Part B Medicare Part B [id number] Unknown [employer] Medicare Part B [id number] Unknown Family history Mother Diagnosis Age At Onset No Known Diseases N/A Father Diagnosis Age At Onset No Known Diseases N/A Social History Social History Element Codes Description Effective Dates Living arrangements Unknown Assisted Living [place] 11/28/2017 Marital status Unknown 07/23/2017 Employment Unknown [...] Start Date Stop Date Status Fill Instructions Vitamin D3 1,000 unit tablet RxNorm: 734741 1 Tablet(s) PO daily 07/22/2018 06/16/2019 Active amlodipine 5 mg tablet RxNorm: 661666 TAKE ONE TABLET BY MOUTH DAILY 07/01/2018 06/25/2019 Active Generic For:NORVASC 5MG 06/30/2018 1:40:01 PM gabapentin 100 mg capsule RxNorm: 940091 TAKE 1 CAPSULE BY MOUTH THREE TIMES DAILY 07/01/2018 01/26/2019 Active Generic For:NEURONTIN 100MG 06/30/2018 1:39:54 PM Tylenol 325 mg tablet RxNorm: 502104 TAKE 1 TABLET BY MOUTH TWICE DAILY 06/17/2018 06/11/2019 Active Generic For:TYLENOL 325MG 06/17/2018 12:45:03 PM diclofenac 1 % topical gel RxNorm: 610781 APPLY 2 GRAMS TOP TO HANDS FOUR TIMES DAILY BILATERALLY 06/10/2018 10/07/2018 Active diclofenac 1 % topical gel RxNorm: 188155 APPLY 2 GRAMS TOP TO HANDS FOUR TIMES DAILY BILATERALLY 06/10/2018 06/09/2018 Inactive Protonix 40 mg tablet,delayed release RxNorm: 730228 TAKE 1 TABLET BY MOUTH EVERY MORNING 06/09/2018 10/06/2018 Active Generic For:PROTONIX 40MG 06/09/2018 2:16:07 PM tamsulosin 0.4 mg capsule RxNorm: 726779 TAKE 1 CAPSULE BY MOUTH ONCE DAILY 06/04/2018 05/29/2019 Active Generic For:FLOMAX 0.4MG 06/03/2018 4:14:32 PM N O T I C E Last quantity doesn't match original quantity glimepiride 2 mg tablet RxNorm: 024317 TAKE 1 TABLET BY MOUTH ONCE DAILY 05/26/2018 04/20/2019 Active Generic For:AMARYL 2MG 05/26/2018 1:31:32 PM Floranex 100 million cell oral granules in packet RxNorm: 1 Tablet(s) PO daily 05/23/2018 09/19/2018 Active Floranex 100 million cell oral granules in packet RxNorm: 1 Tablet(s) PO daily 05/23/2018 05/22/2018 Inactive Proscar 5 mg tablet RxNorm: 338221 TAKE 1 TABLET BY MOUTH ONCE DAILY 05/05/2018 10/31/2018 Active Generic For:PROSCAR 5MG 05/05/2018 9:23:48 AM gabapentin 100 mg capsule RxNorm: 839303 TAKE 1 CAPSULE BY MOUTH THREE TIMES DAILY 04/07/2018 06/30/2018 Inactive Generic For:NEURONTIN 100MG 04/07/2018 10:37:42 AM allopurinol 100 mg tablet RxNorm: 293519 TAKE 1 TABLET BY MOUTH TWICE DAILY 03/20/2018 09/15/2018 Active 03/19/2018 9:53:25 AM pravastatin 40 mg tablet RxNorm: 611065 TAKE ONE TABLET BY MOUTH EVERY NIGHT AT BEDTIME 03/13/2018 09/08/2018 Active Generic For:PRAVACHOL 40MG 03/13/2018 9:02:23 AM N O T I C E Last quantity doesn't match original quantity Protonix 40 mg tablet,delayed release RxNorm: 879043 TAKE 1 TABLET BY MOUTH EVERY MORNING 03/13/2018 06/08/2018 Inactive Generic For:PROTONIX 40MG 03/13/2018 9:02:28 AM N O T I C E Last quantity doesn't match original quantity Plavix 75 mg tablet RxNorm: 182320 TAKE 1 TABLET BY MOUTH ONCE DAILY 03/10/2018 10/05/2018 Active Generic For:*PLAVIX 75MG 03/10/2018 10:12:55 AM tamsulosin 0.4 mg capsule RxNorm: 619584 TAKE 1 CAPSULE BY MOUTH ONCE DAILY 03/10/2018 06/03/2018 Inactive Generic For:FLOMAX 0.4MG 03/10/2018 10:12:59 AM Jardiance 10 mg tablet RxNorm: 1675571 1 Tablet(s) PO daily 02/20/2018 08/18/2018 Active Jardiance 10 mg tablet RxNorm: 9606014 1 Tablet(s) PO daily 02/20/2018 02/19/2018 Inactive Plavix 75 mg tablet RxNorm: 300399 1 Tablet(s) PO QHS 02/12/2018 03/09/2018 Inactive tamsulosin 0.4 mg capsule RxNorm: 730122 1 Capsule(s) PO daily 02/12/2018 03/09/2018 Inactive loperamide 2 mg tablet RxNorm: 936620 2 after 1st stool & 1 after each add/max 4 in 24 hours Tablet(s) PO 02/03/2018 06/02/2018 Inactive Tylenol 325 mg tablet RxNorm: 294558 1 Tablet(s) PO QHS and every 6 hours prn 02/03/2018 02/02/2018 Inactive Tylenol 325 mg tablet RxNorm: 329145 1 Tablet(s) PO QHS and every 6 hours prn 02/03/2018 06/02/2018 Inactive loperamide 2 mg tablet RxNorm: 074259 2 after 1st stool & 1 after each add/max 4 in 24 hours Tablet(s) PO 02/03/2018 02/02/2018 Inactive Vitamin B-12 1,000 mcg tablet RxNorm: 699831 TAKE 1 TABLET BY MOUTH ONCE DAILY 01/27/2018 12/22/2018 Active 01/27/2018 10:10:15 AM glimepiride 2 mg tablet RxNorm: 500922 TAKE 1 TABLET BY MOUTH ONCE DAILY 01/27/2018 05/25/2018 Inactive Generic For:AMARYL 2MG 01/27/2018 10:09:58 AM Januvia 100 mg tablet RxNorm: 332108 TAKE 1 TABLET BY MOUTH ONCE DAILY 01/20/2018 02/19/2018 Inactive 01/20/2018 9:58:08 AM Alcohol Pads RxNorm: 221279 1 [facility] 01/07/2018 No Stop Date Active amlodipine 5 mg tablet RxNorm: 206156 TAKE ONE TABLET BY MOUTH DAILY 01/06/2018 06/30/2018 Inactive Generic For:NORVASC 5MG 01/06/2018 10:33:58 AM N O T I C E Last quantity doesn't match original quantity gabapentin 100 mg capsule RxNorm: 300543 TAKE 1 CAPSULE BY MOUTH THREE TIMES DAILY 01/06/2018 04/06/2018 Inactive Generic For:NEURONTIN 100MG 01/06/2018 10:33:55 AM N O T I C E Last quantity doesn't match original quantity Protonix 40 mg tablet,delayed release RxNorm: 562170 TAKE 1 TABLET BY MOUTH EVERY MORNING 12/16/2017 03/12/2018 Inactive Generic For:PROTONIX 40MG Proscar 5 mg tablet RxNorm: 128977 TAKE 1 TABLET BY MOUTH ONCE DAILY 11/04/2017 05/02/2018 Inactive Generic For:PROSCAR 5MG 11/04/2017 9:47:27 AM Aspirin Low Dose 81 mg tablet,delayed release RxNorm: 782119 1 Tablet(s) PO [facility] 10/21/2017 10/15/2018 Active amlodipine 5 mg tablet RxNorm: 575837 TAKE ONE TABLET BY MOUTH DAILY 10/07/2017 01/04/2018 Inactive Generic For:NORVASC 5MG 10/07/2017 9:55:37 AM gabapentin 100 mg capsule RxNorm: 167856 TAKE 1 CAPSULE BY MOUTH THREE TIMES DAILY 10/07/2017 01/04/2018 Inactive Generic For:NEURONTIN 100MG 10/07/2017 9:55:26 AM Januvia 100 mg tablet RxNorm: 765341 TAKE 1 TABLET BY MOUTH ONCE DAILY 09/23/2017 01/19/2018 Inactive 09/23/2017 9:25:24 AM pravastatin 40 mg tablet RxNorm: 749854 TAKE ONE TABLET BY MOUTH EVERY NIGHT AT BEDTIME 09/19/2017 03/12/2018 Inactive Generic For:PRAVACHOL 40MG 09/19/2017 9:12:02 AM Protonix 40 mg tablet,delayed release RxNorm: 415530 TAKE 1 TABLET BY MOUTH EVERY MORNING 09/16/2017 12/15/2017 Inactive Generic For:PROTONIX 40MG 09/16/2017 9:50:22 AM amlodipine 5 mg tablet RxNorm: 683761 TAKE ONE TABLET BY MOUTH DAILY 09/09/2017 10/06/2017 Inactive Generic For:NORVASC 5MG 09/09/2017 9:16:37 AM gabapentin 100 mg capsule RxNorm: 662685 TAKE 1 CAPSULE BY MOUTH THREE TIMES DAILY 09/09/2017 10/06/2017 Inactive Generic For:NEURONTIN 100MG 09/09/2017 9:16:33 AM Vitamin D3 1,000 unit tablet RxNorm: 681683 1 Tablet(s) PO daily 09/04/2017 07/21/2018 Inactive Vitamin D3 1,000 unit tablet RxNorm: 255017 1 Tablet(s) PO daily 09/03/2017 09/03/2017 Inactive glimepiride 2 mg tablet RxNorm: 703990 TAKE 1 TABLET BY MOUTH ONCE DAILY 09/02/2017 01/26/2018 Inactive Generic For:AMARYL 2MG 09/02/2017 9:35:29 AM Vitamin B-12 1,000 mcg tablet RxNorm: 308292 TAKE 1 TABLET BY MOUTH ONCE DAILY 09/02/2017 01/26/2018 Inactive 09/02/2017 9:35:38 AM pravastatin 40 mg tablet RxNorm: 933768 1 Tablet(s) PO QHS 08/22/2017 08/21/2017 Inactive pravastatin 40 mg tablet RxNorm: 458153 1 Tablet(s) PO QHS 08/22/2017 09/18/2017 Inactive glimepiride 2 mg tablet RxNorm: 745761 1 Tablet(s) PO daily 07/24/2017 09/01/2017 Inactive hydrocodone 5 mg-acetaminophen 325 mg tablet RxNorm: 794211 1-2 Tablet(s) PO Q4H as needed for pain 07/23/2017 08/28/2017 Inactive Proscar 5 mg tablet RxNorm: 863722 1 Tablet(s) PO daily No Start Date 11/03/2017 Inactive Metamucil oral packet RxNorm: 1 packet PO daily No Start Date 07/23/2017 Inactive Vitamin B-12 1,000 mcg tablet RxNorm: 877766 1 Tablet(s) PO daily No Start Date 09/01/2017 Inactive tamsulosin 0.4 mg capsule RxNorm: 219764 1 Capsule(s) PO daily No Start Date 02/11/2018 Inactive Plavix 75 mg tablet RxNorm: 671313 1 Tablet(s) PO QHS No Start Date 02/11/2018 Inactive Alcohol Pads RxNorm: 262082 1 TOP UD No Start Date 01/06/2018 Inactive Vitamin D3 1,000 unit tablet RxNorm: 923872 1 Tablet(s) PO daily No Start Date 09/02/2017 Inactive gabapentin 100 mg capsule RxNorm: 309324 1 Capsule(s) PO TID No Start Date 09/08/2017 Inactive olanzapine 5 mg tablet RxNorm: 161125 1 Tablet(s) PO QHS No Start Date 07/22/2017 Inactive Lipitor 40 mg tablet RxNorm: 912975 1 Tablet(s) PO QHS No Start Date 08/21/2017 Inactive Januvia 100 mg tablet RxNorm: 137517 1 Tablet(s) PO QHS No Start Date 09/22/2017 Inactive folic acid 1 mg tablet RxNorm: 095270 1 Tablet(s) PO daily No Start Date 07/23/2017 Inactive hydrocodone 5 mg-acetaminophen 325 mg tablet RxNorm: 299594 1 Tablet(s) PO Q4H as needed for pain No Start Date 07/22/2017 Inactive Protonix 40 mg tablet,delayed release RxNorm: 873558 1 Tablet(s) PO daily No Start Date 09/15/2017 Inactive allopurinol 100 mg tablet RxNorm: 529224 1 Tablet(s) PO BID No Start Date 03/19/2018 Inactive amlodipine 5 mg tablet RxNorm: 970096 1 Tablet(s) PO daily No Start Date 09/08/2017 Inactive Aspirin Low Dose 81 mg tablet,delayed release RxNorm: 485467 1 Tablet(s) PO QHS No Start Date [...] Observation Code Item Item Code Result Date Urinalysis Ord28 U-Color Yellow 08/11/2018 Urinalysis Ord28 [...] U-VOL VOLUME SUFFICIENT (10mL) 08/11/2018 Urinalysis Ord28 U-Yeast NEGATIVE 08/11/2018 Urinalysis Ord28 U-Com Culture to follow 08/11/2018 Cbc With Differential Ord2 WBC 9.78 K/ul 08/08/2018 Cbc With Differential Ord2 RBC 3.96 M/ul 08/08/2018 Cbc With Differential Ord2 HGB 12.3 g/dl 08/08/2018 Cbc With Differential Ord2 HCT 37.4 % 08/08/2018 Cbc With Differential Ord2 Neut% 76.3 % 08/08/2018 Cbc With Differential Ord2 Lymph% 12.9 % 08/08/2018 Cbc With Differential Ord2 MCV 94.4 fl 08/08/2018 Cbc With Differential Ord2 [place]% 9.2 % 08/08/2018 Cbc With Differential Ord2 [...] 1.26 K/ul 08/08/2018 Cbc With Differential Ord2 [place] ABS# 0.9 K/ul 08/08/2018 Cbc With Differential Ord2 Eos ABS# 0.1 K/ul 08/08/2018 Cbc With Differential Ord2 Baso ABS# 0.0 K/ul 08/08/2018 Comp Metabolic Jow216 NA 135 mEq/L 08/08/2018 Comp Metabolic Aph954 K 3.7 mEq/L 08/08/2018 Comp Metabolic Eux247 CL 106 mEq/L 08/08/2018 Comp Metabolic Lnw805 CO2 18.0 mEq/L 08/08/2018 Comp Metabolic Ycc911 ANION GAP 15 08/08/2018 Comp Metabolic Cnt745 GLUCOSE 123 mg/dL 08/08/2018 Comp Metabolic Gmv848 Creat 1.5 mg/dL 08/08/2018 Comp Metabolic Acv816 eGFR 49 ml/min/1.73m2 08/08/2018 Comp Metabolic Zmy935 BUN 32 mg/dL 08/08/2018 Comp Metabolic Hgq198 B/C Ratio 21.9 Ratio 08/08/2018 Comp Metabolic Yvv863 CALCIUM 8.2 mg/dL 08/08/2018 Comp Metabolic Zvy860 ALK PHOS 58 U/L 08/08/2018 Comp Metabolic Sfo094 AST(SGOT) 11 U/L 08/08/2018 Comp Metabolic Llw733 ALT(SGPT) 11 U/L 08/08/2018 Comp Metabolic Fol508 BILI T 1.0 mg/dL 08/08/2018 Comp Metabolic Fut218 ALBUMIN 3.5 g/dL 08/08/2018 Comp Metabolic Iro522 TPRO 5.8 g/dL 08/08/2018 Comp Metabolic Rbr311 GLOB 2.3 g/dL 08/08/2018 Comp Metabolic Ata059 A/G Ratio 1.6 Ratio 08/08/2018 Comp Metabolic Csc657 Osmo 278 mOsmo 08/08/2018 %Hba1C Oft963 % HbA1c 45135- 6 7.0 % 05/29/2018 %Hba1C Frl727 Gluc Ave 154 mg/dL 05/29/2018 Comp Metabolic Dzp397 NA 139 mEq/L 05/29/2018 Comp Metabolic Bjk340 K 4.1 mEq/L 05/29/2018 Comp Metabolic Pvb839 CL 109 mEq/L 05/29/2018 Comp Metabolic Jxw649 CO2 23.0 mEq/L 05/29/2018 Comp Metabolic Axr031 ANION GAP 11 05/29/2018 Comp Metabolic Elh198 GLUCOSE 164 mg/dL 05/29/2018 Comp Metabolic Pkp823 Creat 1.4 mg/dL 05/29/2018 Comp Metabolic Dme791 eGFR 50 ml/min/1.73m2 05/29/2018 Comp Metabolic Grs343 BUN 30 mg/dL 05/29/2018 Comp Metabolic Wud376 B/C Ratio 21.0 Ratio 05/29/2018 Comp Metabolic Srg584 CALCIUM 9.2 mg/dL 05/29/2018 Comp Metabolic Imo096 ALK PHOS 55 U/L 05/29/2018 Comp Metabolic Dga607 AST(SGOT) 11 U/L 05/29/2018 Comp Metabolic Urj404 ALT(SGPT) 15 U/L 05/29/2018 Comp Metabolic Pej389 BILI T 0.8 mg/dL 05/29/2018 Comp Metabolic Nij543 ALBUMIN 4.0 g/dL 05/29/2018 Comp Metabolic Jcc506 TPRO 6.3 g/dL 05/29/2018 Comp Metabolic Yom927 GLOB 2.4 g/dL 05/29/2018 Comp Metabolic Fed691 A/G Ratio 1.7 Ratio 05/29/2018 Comp Metabolic Ibr989 Osmo 287 mOsmo 05/29/2018 Cbc With Differential [...] 31.1 pg 05/29/2018 Cbc With Differential Ord2 [place]% 8.9 % 05/29/2018 Cbc With Differential Ord2 [...] 1.90 K/ul 05/29/2018 Cbc With Differential Ord2 [place] ABS# 0.7 K/ul 05/29/2018 Cbc With Differential [...] 30.6 pg 11/29/2017 Cbc With Differential Ord2 [place]% 8.0 % 11/29/2017 Cbc With Differential Ord2 [...] 1.46 K/ul 11/29/2017 Cbc With Differential Ord2 [place] ABS# 0.6 K/ul 11/29/2017 Cbc With Differential Ord2 Eos ABS# 0.2 K/ul 11/29/2017 Cbc With Differential Ord2 Baso ABS# 0.0 K/ul 11/29/2017 Lipid Ord30 CHOL 115 mg/dL 11/29/2017 Lipid Ord30 HDL 40.0 mg/dl 11/29/2017 Lipid Ord30 TRIG 114 mg/dL 11/29/2017 Lipid Ord30 LDL 52 mg/dL 11/29/2017 Lipid Ord30 C/HDL 2.9 Ratio 11/29/2017 %Hba1C Fqw911 % HbA1c 22597- 6 6.5 % 11/29/2017 %Hba1C Zzx364 Gluc Ave 140 mg/dL 11/29/2017 Comp Metabolic Jrz181 NA 140 mEq/L 11/29/2017 Comp Metabolic Rig248 K 3.6 mEq/L 11/29/2017 Comp Metabolic Kfo232 CL 106 mEq/L 11/29/2017 Comp Metabolic Wup293 CO2 24.0 mEq/L 11/29/2017 Comp Metabolic Oml216 ANION GAP 14 11/29/2017 Comp Metabolic Hoo167 GLUCOSE 151 mg/dL 11/29/2017 Comp Metabolic Tuk232 Creat 1.2 mg/dL 11/29/2017 Comp Metabolic Adh240 eGFR 61 ml/min/1.73m2 11/29/2017 Comp Metabolic Mud877 BUN 34 mg/dL 11/29/2017 Comp Metabolic Auc899 B/C Ratio 28.3 Ratio 11/29/2017 Comp Metabolic Ctl344 CALCIUM 8.9 mg/dL 11/29/2017 Comp Metabolic Nhr741 ALK PHOS 69 U/L 11/29/2017 Comp Metabolic Yqi298 AST(SGOT) 13 U/L 11/29/2017 Comp Metabolic Yaw384 ALT(SGPT) 16 U/L 11/29/2017 Comp Metabolic Pth806 BILI T 0.7 mg/dL 11/29/2017 Comp Metabolic Abb599 ALBUMIN 3.5 g/dL 11/29/2017 Comp Metabolic Nbx519 TPRO 5.7 g/dL 11/29/2017 Comp Metabolic Htb877 GLOB 2.2 g/dL 11/29/2017 Comp Metabolic Qsf619 A/G Ratio 1.6 Ratio 11/29/2017 Comp Metabolic Ftl648 Osmo 290 mOsmo 11/29/2017 Review of Systems [...] clear 07/23/2017 None Full Exam - General 1995 Integument inspection of skin Location: chest 07/23/2017 incision from recent pacemaker with steri strips d/i Procedures No Procedures data Vital Signs Date Vital 08/08/2018 Blood Pressure 1: 98/56 Code: 8480-6 BMI: 32.9 Code: 97967- 5 Heart Rate 1: 35 bpm Height: 5'7" SpO2: 95% Weight: 210 lbs 05/29/2018 Blood Pressure 1: 112/68 Code: 8480-6 BMI: 33.4 Code: 04001-9 Heart Rate 1: 100 bpm Height: 5'7" [...] 1: 138/76 Code: 8480-6 BMI: 33.2 Code: 58458-0 Heart Rate 1: 83 bpm Height: 5'7" [...] Directive data Encounters Encounter Performer Location Codes [id number]) [id number] EST. PATIENT, LEVEL IV Diagnosis: Type 2 diabetes mellitus with hyperglycemia[ICD10: E11.65] Diagnosis: Chronic kidney disease, stage 3 (moderate)[ICD10: N18.3] Diagnosis: Muscle weakness (generalized)[ICD10: M62.81] Diagnosis: Diarrhea, unspecified[ICD10: R19.7] [facility] CPT-4: 62338 08/08/2018 [id number]) [id number] EST. PATIENT, LEVEL IV Diagnosis: Type 2 diabetes mellitus with hyperglycemia[ICD10: E11.65] Diagnosis: Essential (primary) hypertension[ICD10: I10] Diagnosis: Chronic kidney disease, stage 3 (moderate)[ICD10: N18.3] Diagnosis: Primary generalized (osteo)arthritis[ICD10: M15.0] Geneva Spaulding MD, [facility] CPT-4: 73467 05/29/2018 [id number]) [id number] EST. PATIENT, LEVEL IV Diagnosis: Type 2 diabetes mellitus with hyperglycemia[ICD10: E11.65] Diagnosis: Essential (primary) hypertension[ICD10: I10] Diagnosis: Diarrhea, unspecified[ICD10: R19.7] Geneva Spaulding MD, [facility] CPT-4: 05693 02/27/2018 [id number] [id number] EST. PATIENT, LEVEL IV Diagnosis: Essential (primary) hypertension[ICD10: I10] Diagnosis: Type 2 diabetes mellitus with hyperglycemia[ICD10: E11.65] Diagnosis: Chronic kidney disease, stage 3 (moderate)[ICD10: N18.3] Diagnosis: Cervicalgia[ICD10: M54.2] Geneva Spaulding MD, [facility] CPT-4: 03930 11/28/2017 [id number]) [id number] EST. PATIENT, LEVEL III Diagnosis: Essential (primary) hypertension[ICD10: I10] Diagnosis: Type 2 diabetes mellitus with hyperglycemia[ICD10: E11.65] Diagnosis: Foot drop, left foot[ICD10: M21.372] Geneva Spaulding MD, [facility] CPT-4: 07512 08/29/2017 OFFICE VISIT, NEW - LEVEL 4 Diagnosis: Essential (primary) hypertension[ICD10: I10] Diagnosis: Type 2 diabetes mellitus with hyperglycemia[ICD10: E11.65] Diagnosis: Chronic kidney disease, stage 3 (moderate)[ICD10: N18.3] Diagnosis: Muscle weakness (generalized)[ICD10: M62.81] [facility] CPT-4: 21743 07/23/2017 Plan of Care Planned Activity Notes Codes Status Date Visit Plan: DM-change jardiance to 1/2 tab daily and administer in the morning instead of bedtime- continue to monitor blood sugars Diarrhea -improved- no diarrhea since this morning -increase probiotics -continue electrolyte drinks -check labs and stool studies-call if not improving or if any worse CKD-check labs HTN-slightly low today but readings from [place] okay -increase fluids as directed and monitor blood pressure and pulse 08/08/2018 Appointment: Geneva Case WPtel: [phone] [phone] (30 min) Complex 08/08/2018 Patient Education: Patient [...] labs 05/29/2018 Appointment: Geneva Case WPtel: [phone] [phone] (30 min) Complex 05/29/2018 Patient Education: Patient [...] change in blood pressure readings at home. Xwypbmkw-htjacjjykvgs-ewoxj probiotics as directed 02/27/2018 Appointment: Geneva Case WPtel: [phone] [phone] (15 min) Moderate 02/27/2018 Patient Education: Patient [...] disease-check labs 11/28/2017 Appointment: Geneva Case WPtel: [phone] [phone] (15 min) Moderate 11/28/2017 Patient Education: Patient [...] safer ambulation. 08/29/2017 Appointment: Geneva Case WPtel: [phone] (15 min) Moderate 08/29/2017 Patient Education: Patient [...] are starting to become less controlled. Generalized ausjitib-vkhybrxvc-jqkhtops PT- plan to move back to [place] when able 07/23/2017 Appointment: Geneva Case WPtel: [phone] [phone] New Patient 07/23/2017 Patient Education: Patient Medication [...] labs HTN-slightly low today but readings from [place] okay -increase fluids as directed and monitor [...] are starting to become less controlled. Generalized qjhaoebu-qeaxetcxe-lxmuzkqy PT-plan to move back to [place] when able SCHEDULE TYLENOL TWICE DAILY AND [...] change in blood pressure readings at home. Bipltoty-cihzjjdrexfi-yrdai probiotics as directed . Hypertension - well [...]
--- OUTSIDE RECORDS SUMMARY | 2018-08-21 10:21 | XMS REPORT | CCD ---
Author Author Geneva Case MD, [facility] Address [address] [place] [address] Phone Care Team Providers Care Molding Manager Name Role Phone PP Unavailable CCM Unavailable Summary Purpose Interface Exchange Insurance Providers Payer name Policy type / Coverage type Covered libertarian ID Effective Begin Date Effective End Date WPS Medicare Part B Medicare Part B [id number] Unknown Attensity Medicare Part B [id number] Unknown Family history Mother Diagnosis Age At Onset No Known Diseases N/A Father Diagnosis Age At Onset No Known Diseases N/A Social History Social History Element Codes Description Effective Dates Living arrangements Unknown Assisted Living [place] 11/28/2017 Marital status Unknown 07/23/2017 Employment Unknown [...] Instructions Vitamin D3 1,000 unit tablet RxNorm: 155149 1 Tablet(s) PO daily 07/22/2018 06/16/2019 Active amlodipine 5 mg tablet RxNorm: 239350 TAKE ONE TABLET BY MOUTH DAILY 07/01/2018 06/25/2019 Active Generic For:NORVASC 5MG 06/30/2018 1:40:01 PM gabapentin 100 mg capsule RxNorm: 192536 TAKE 1 CAPSULE BY MOUTH THREE TIMES DAILY 07/01/2018 01/26/2019 Active Generic For:NEURONTIN 100MG 06/30/2018 1:39:54 PM Tylenol 325 mg tablet RxNorm: 210476 TAKE 1 TABLET BY MOUTH TWICE DAILY 06/17/2018 06/11/2019 Active Generic For:TYLENOL 325MG 06/17/2018 12:45:03 PM diclofenac 1 % topical gel RxNorm: 186905 APPLY 2 GRAMS TOP TO HANDS FOUR TIMES DAILY BILATERALLY 06/10/2018 10/07/2018 Active diclofenac 1 % topical gel RxNorm: 821993 APPLY 2 GRAMS TOP TO HANDS FOUR TIMES DAILY BILATERALLY 06/10/2018 06/09/2018 Inactive Protonix 40 mg tablet,delayed release RxNorm: 141840 TAKE 1 TABLET BY MOUTH EVERY MORNING 06/09/2018 10/06/2018 Active Generic For:PROTONIX 40MG 06/09/2018 2:16:07 PM tamsulosin 0.4 mg capsule RxNorm: 215638 TAKE 1 CAPSULE BY MOUTH ONCE DAILY 06/04/2018 05/29/2019 Active Generic For:FLOMAX 0.4MG 06/03/2018 4:14:32 PM N O T I C E Last quantity doesn't match original quantity glimepiride 2 mg tablet RxNorm: 861054 TAKE 1 TABLET BY MOUTH ONCE DAILY 05/26/2018 04/20/2019 Active Generic For:AMARYL 2MG 05/26/2018 1:31:32 PM Floranex 100 million cell oral granules in packet RxNorm: 1 Tablet(s) PO daily 05/23/2018 09/19/2018 Active Floranex 100 million cell oral granules in packet RxNorm: 1 Tablet(s) PO daily 05/23/2018 05/22/2018 Inactive Proscar 5 mg tablet RxNorm: 469803 TAKE 1 TABLET BY MOUTH ONCE DAILY 05/05/2018 10/31/2018 Active Generic For:PROSCAR 5MG 05/05/2018 9:23:48 AM gabapentin 100 mg capsule RxNorm: 594587 TAKE 1 CAPSULE BY MOUTH THREE TIMES DAILY 04/07/2018 06/30/2018 Inactive Generic For:NEURONTIN 100MG 04/07/2018 10:37:42 AM allopurinol 100 mg tablet RxNorm: 082252 TAKE 1 TABLET BY MOUTH TWICE DAILY 03/20/2018 09/15/2018 Active 03/19/2018 9:53:25 AM pravastatin 40 mg tablet RxNorm: 344550 TAKE ONE TABLET BY MOUTH EVERY NIGHT AT BEDTIME 03/13/2018 09/08/2018 Active Generic For:PRAVACHOL 40MG 03/13/2018 9:02:23 AM N O T I C E Last quantity doesn't match original quantity Protonix 40 mg tablet,delayed release RxNorm: 359273 TAKE 1 TABLET BY MOUTH EVERY MORNING 03/13/2018 06/08/2018 Inactive Generic For:PROTONIX 40MG 03/13/2018 9:02:28 AM N O T I C E Last quantity doesn't match original quantity Plavix 75 mg tablet RxNorm: 220211 TAKE 1 TABLET BY MOUTH ONCE DAILY 03/10/2018 10/05/2018 Active Generic For:*PLAVIX 75MG 03/10/2018 10:12:55 AM tamsulosin 0.4 mg capsule RxNorm: 954858 TAKE 1 CAPSULE BY MOUTH ONCE DAILY 03/10/2018 06/03/2018 Inactive Generic For:FLOMAX 0.4MG 03/10/2018 10:12:59 AM Jardiance 10 mg tablet RxNorm: 0940329 1 Tablet(s) PO daily 02/20/2018 08/18/2018 Active Jardiance 10 mg tablet RxNorm: 1547891 1 Tablet(s) PO daily 02/20/2018 02/19/2018 Inactive Plavix 75 mg tablet RxNorm: 718674 1 Tablet(s) PO QHS 02/12/2018 03/09/2018 Inactive tamsulosin 0.4 mg capsule RxNorm: 669178 1 Capsule(s) PO daily 02/12/2018 03/09/2018 Inactive loperamide 2 mg tablet RxNorm: 504283 2 after 1st stool & 1 after each add/max 4 in 24 hours Tablet(s) PO 02/03/2018 06/02/2018 Inactive Tylenol 325 mg tablet RxNorm: 229626 1 Tablet(s) PO QHS and every 6 hours prn 02/03/2018 02/02/2018 Inactive Tylenol 325 mg tablet RxNorm: 779003 1 Tablet(s) PO QHS and every 6 hours prn 02/03/2018 06/02/2018 Inactive loperamide 2 mg tablet RxNorm: 042593 2 after 1st stool & 1 after each add/max 4 in 24 hours Tablet(s) PO 02/03/2018 02/02/2018 Inactive Vitamin B-12 1,000 mcg tablet RxNorm: 650688 TAKE 1 TABLET BY MOUTH ONCE DAILY 01/27/2018 12/22/2018 Active 01/27/2018 10:10:15 AM glimepiride 2 mg tablet RxNorm: 456899 TAKE 1 TABLET BY MOUTH ONCE DAILY 01/27/2018 05/25/2018 Inactive Generic For:AMARYL 2MG 01/27/2018 10:09:58 AM Januvia 100 mg tablet RxNorm: 305198 TAKE 1 TABLET BY MOUTH ONCE DAILY 01/20/2018 02/19/2018 Inactive 01/20/2018 9:58:08 AM Alcohol Pads RxNorm: 696615 1 [facility] 01/07/2018 No Stop Date Active amlodipine 5 mg tablet RxNorm: 471840 TAKE ONE TABLET BY MOUTH DAILY 01/06/2018 06/30/2018 Inactive Generic For:NORVASC 5MG 01/06/2018 10:33:58 AM N O T I C E Last quantity doesn't match original quantity gabapentin 100 mg capsule RxNorm: 937607 TAKE 1 CAPSULE BY MOUTH THREE TIMES DAILY 01/06/2018 04/06/2018 Inactive Generic For:NEURONTIN 100MG 01/06/2018 10:33:55 AM N O T I C E Last quantity doesn't match original quantity Protonix 40 mg tablet,delayed release RxNorm: 803750 TAKE 1 TABLET BY MOUTH EVERY MORNING 12/16/2017 03/12/2018 Inactive Generic For:PROTONIX 40MG Proscar 5 mg tablet RxNorm: 687501 TAKE 1 TABLET BY MOUTH ONCE DAILY 11/04/2017 05/02/2018 Inactive Generic For:PROSCAR 5MG 11/04/2017 9:47:27 AM Aspirin Low Dose 81 mg tablet,delayed release RxNorm: 202515 1 Tablet(s) PO [facility] 10/21/2017 10/15/2018 Active amlodipine 5 mg tablet RxNorm: 282172 TAKE ONE TABLET BY MOUTH DAILY 10/07/2017 01/04/2018 Inactive Generic For:NORVASC 5MG 10/07/2017 9:55:37 AM gabapentin 100 mg capsule RxNorm: 788750 TAKE 1 CAPSULE BY MOUTH THREE TIMES DAILY 10/07/2017 01/04/2018 Inactive Generic For:NEURONTIN 100MG 10/07/2017 9:55:26 AM Januvia 100 mg tablet RxNorm: 644586 TAKE 1 TABLET BY MOUTH ONCE DAILY 09/23/2017 01/19/2018 Inactive 09/23/2017 9:25:24 AM pravastatin 40 mg tablet RxNorm: 288886 TAKE ONE TABLET BY MOUTH EVERY NIGHT AT BEDTIME 09/19/2017 03/12/2018 Inactive Generic For:PRAVACHOL 40MG 09/19/2017 9:12:02 AM Protonix 40 mg tablet,delayed release RxNorm: 897310 TAKE 1 TABLET BY MOUTH EVERY MORNING 09/16/2017 12/15/2017 Inactive Generic For:PROTONIX 40MG 09/16/2017 9:50:22 AM amlodipine 5 mg tablet RxNorm: 330361 TAKE ONE TABLET BY MOUTH DAILY 09/09/2017 10/06/2017 Inactive Generic For:NORVASC 5MG 09/09/2017 9:16:37 AM gabapentin 100 mg capsule RxNorm: 740692 TAKE 1 CAPSULE BY MOUTH THREE TIMES DAILY 09/09/2017 10/06/2017 Inactive Generic For:NEURONTIN 100MG 09/09/2017 9:16:33 AM Vitamin D3 1,000 unit tablet RxNorm: 686317 1 Tablet(s) PO daily 09/04/2017 07/21/2018 Inactive Vitamin D3 1,000 unit tablet RxNorm: 273146 1 Tablet(s) PO daily 09/03/2017 09/03/2017 Inactive glimepiride 2 mg tablet RxNorm: 928110 TAKE 1 TABLET BY MOUTH ONCE DAILY 09/02/2017 01/26/2018 Inactive Generic For:AMARYL 2MG 09/02/2017 9:35:29 AM Vitamin B-12 1,000 mcg tablet RxNorm: 719422 TAKE 1 TABLET BY MOUTH ONCE DAILY 09/02/2017 01/26/2018 Inactive 09/02/2017 9:35:38 AM pravastatin 40 mg tablet RxNorm: 546599 1 Tablet(s) PO QHS 08/22/2017 08/21/2017 Inactive pravastatin 40 mg tablet RxNorm: 866736 1 Tablet(s) PO QHS 08/22/2017 09/18/2017 Inactive glimepiride 2 mg tablet RxNorm: 446726 1 Tablet(s) PO daily 07/24/2017 09/01/2017 Inactive hydrocodone 5 mg-acetaminophen 325 mg tablet RxNorm: 710465 1-2 Tablet(s) PO Q4H as needed for pain 07/23/2017 08/28/2017 Inactive Proscar 5 mg tablet RxNorm: 302704 1 Tablet(s) PO daily No Start Date 11/03/2017 Inactive Metamucil oral packet RxNorm: 1 packet PO daily No Start Date 07/23/2017 Inactive Vitamin B-12 1,000 mcg tablet RxNorm: 787415 1 Tablet(s) PO daily No Start Date 09/01/2017 Inactive tamsulosin 0.4 mg capsule RxNorm: 441997 1 Capsule(s) PO daily No Start Date 02/11/2018 Inactive Plavix 75 mg tablet RxNorm: 037164 1 Tablet(s) PO QHS No Start Date 02/11/2018 Inactive Alcohol Pads RxNorm: 835494 1 TOP UD No Start Date 01/06/2018 Inactive Vitamin D3 1,000 unit tablet RxNorm: 590370 1 Tablet(s) PO daily No Start Date 09/02/2017 Inactive gabapentin 100 mg capsule RxNorm: 791066 1 Capsule(s) PO TID No Start Date 09/08/2017 Inactive olanzapine 5 mg tablet RxNorm: 657982 1 Tablet(s) PO QHS No Start Date 07/22/2017 Inactive Lipitor 40 mg tablet RxNorm: 763975 1 Tablet(s) PO QHS No Start Date 08/21/2017 Inactive Januvia 100 mg tablet RxNorm: 743223 1 Tablet(s) PO QHS No Start Date 09/22/2017 Inactive folic acid 1 mg tablet RxNorm: 798324 1 Tablet(s) PO daily No Start Date 07/23/2017 Inactive hydrocodone 5 mg-acetaminophen 325 mg tablet RxNorm: 101794 1 Tablet(s) PO Q4H as needed for pain No Start Date 07/22/2017 Inactive Protonix 40 mg tablet,delayed release RxNorm: 786143 1 Tablet(s) PO daily No Start Date 09/15/2017 Inactive allopurinol 100 mg tablet RxNorm: 072055 1 Tablet(s) PO BID No Start Date 03/19/2018 Inactive amlodipine 5 mg tablet RxNorm: 620988 1 Tablet(s) PO daily No Start Date 09/08/2017 Inactive Aspirin Low Dose 81 mg tablet,delayed release RxNorm: 135226 1 Tablet(s) PO QHS No Start Date [...] Observation Code Item Item Code Result Date Cbc With Differential Ord2 WBC 9.78 K/ul 08/08/2018 Cbc With Differential Ord2 RBC 3.96 M/ul 08/08/2018 Cbc With Differential Ord2 HGB 12.3 g/dl 08/08/2018 Cbc With Differential Ord2 HCT 37.4 % 08/08/2018 Cbc With Differential Ord2 Neut% 76.3 % 08/08/2018 Cbc With Differential Ord2 Lymph% 12.9 % 08/08/2018 Cbc With Differential Ord2 MCV 94.4 fl 08/08/2018 Cbc With Differential Ord2 [place]% 9.2 % 08/08/2018 Cbc With Differential Ord2 [...] 1.26 K/ul 08/08/2018 Cbc With Differential Ord2 [place] ABS# 0.9 K/ul 08/08/2018 Cbc With Differential Ord2 Eos ABS# 0.1 K/ul 08/08/2018 Cbc With Differential Ord2 Baso ABS# 0.0 K/ul 08/08/2018 Comp Metabolic Hzc323 NA 135 mEq/L 08/08/2018 Comp Metabolic Xar589 K 3.7 mEq/L 08/08/2018 Comp Metabolic Quj122 CL 106 mEq/L 08/08/2018 Comp Metabolic Uzf548 CO2 18.0 mEq/L 08/08/2018 Comp Metabolic Vum582 ANION GAP 15 08/08/2018 Comp Metabolic Xrf673 GLUCOSE 123 mg/dL 08/08/2018 Comp Metabolic Qes985 Creat 1.5 mg/dL 08/08/2018 Comp Metabolic Fvp620 eGFR 49 ml/min/1.73m2 08/08/2018 Comp Metabolic Gvb766 BUN 32 mg/dL 08/08/2018 Comp Metabolic Jvo594 B/C Ratio 21.9 Ratio 08/08/2018 Comp Metabolic Geq406 CALCIUM 8.2 mg/dL 08/08/2018 Comp Metabolic Zwe584 ALK PHOS 58 U/L 08/08/2018 Comp Metabolic Cti919 AST(SGOT) 11 U/L 08/08/2018 Comp Metabolic Zhb029 ALT(SGPT) 11 U/L 08/08/2018 Comp Metabolic Dqy364 BILI T 1.0 mg/dL 08/08/2018 Comp Metabolic Egf198 ALBUMIN 3.5 g/dL 08/08/2018 Comp Metabolic Xyr428 TPRO 5.8 g/dL 08/08/2018 Comp Metabolic Qto689 GLOB 2.3 g/dL 08/08/2018 Comp Metabolic Dcm061 A/G Ratio 1.6 Ratio 08/08/2018 Comp Metabolic Lcd487 Osmo 278 mOsmo 08/08/2018 %Hba1C Xlw035 % HbA1c 85264- 6 7.0 % 05/29/2018 %Hba1C Xkv242 Gluc Ave 154 mg/dL 05/29/2018 Comp Metabolic Yob528 NA 139 mEq/L 05/29/2018 Comp Metabolic Wka555 K 4.1 mEq/L 05/29/2018 Comp Metabolic Aoq548 CL 109 mEq/L 05/29/2018 Comp Metabolic Dxi394 CO2 23.0 mEq/L 05/29/2018 Comp Metabolic Xmh545 ANION GAP 11 05/29/2018 Comp Metabolic Ukb400 GLUCOSE 164 mg/dL 05/29/2018 Comp Metabolic Qej937 Creat 1.4 mg/dL 05/29/2018 Comp Metabolic Gjb832 eGFR 50 ml/min/1.73m2 05/29/2018 Comp Metabolic Uhz217 BUN 30 mg/dL 05/29/2018 Comp Metabolic Xhd315 B/C Ratio 21.0 Ratio 05/29/2018 Comp Metabolic Zby503 CALCIUM 9.2 mg/dL 05/29/2018 Comp Metabolic Gfl679 ALK PHOS 55 U/L 05/29/2018 Comp Metabolic Xwg070 AST(SGOT) 11 U/L 05/29/2018 Comp Metabolic Ztj303 ALT(SGPT) 15 U/L 05/29/2018 Comp Metabolic Zxo342 BILI T 0.8 mg/dL 05/29/2018 Comp Metabolic Pqm405 ALBUMIN 4.0 g/dL 05/29/2018 Comp Metabolic Tjh050 TPRO 6.3 g/dL 05/29/2018 Comp Metabolic Wpl323 GLOB 2.4 g/dL 05/29/2018 Comp Metabolic Aji851 A/G Ratio 1.7 Ratio 05/29/2018 Comp Metabolic Czm717 Osmo 287 mOsmo 05/29/2018 Cbc With Differential [...] 31.1 pg 05/29/2018 Cbc With Differential Ord2 [place]% 8.9 % 05/29/2018 Cbc With Differential Ord2 [...] 1.90 K/ul 05/29/2018 Cbc With Differential Ord2 [place] ABS# 0.7 K/ul 05/29/2018 Cbc With Differential [...] 30.6 pg 11/29/2017 Cbc With Differential Ord2 [place]% 8.0 % 11/29/2017 Cbc With Differential Ord2 [...] 1.46 K/ul 11/29/2017 Cbc With Differential Ord2 [place] ABS# 0.6 K/ul 11/29/2017 Cbc With Differential Ord2 Eos ABS# 0.2 K/ul 11/29/2017 Cbc With Differential Ord2 Baso ABS# 0.0 K/ul 11/29/2017 Lipid Ord30 CHOL 115 mg/dL 11/29/2017 Lipid Ord30 HDL 40.0 mg/dl 11/29/2017 Lipid Ord30 TRIG 114 mg/dL 11/29/2017 Lipid Ord30 LDL 52 mg/dL 11/29/2017 Lipid Ord30 C/HDL 2.9 Ratio 11/29/2017 %Hba1C Vap793 % HbA1c 34060- 6 6.5 % 11/29/2017 %Hba1C Wjt898 Gluc Ave 140 mg/dL 11/29/2017 Comp Metabolic Onw439 NA 140 mEq/L 11/29/2017 Comp Metabolic Itt745 K 3.6 mEq/L 11/29/2017 Comp Metabolic Ymt021 CL 106 mEq/L 11/29/2017 Comp Metabolic Bvy727 CO2 24.0 mEq/L 11/29/2017 Comp Metabolic Nga454 ANION GAP 14 11/29/2017 Comp Metabolic Ioc308 GLUCOSE 151 mg/dL 11/29/2017 Comp Metabolic Kha960 Creat 1.2 mg/dL 11/29/2017 Comp Metabolic Idf910 eGFR 61 ml/min/1.73m2 11/29/2017 Comp Metabolic Vfy190 BUN 34 mg/dL 11/29/2017 Comp Metabolic Kua790 B/C Ratio 28.3 Ratio 11/29/2017 Comp Metabolic Bnq621 CALCIUM 8.9 mg/dL 11/29/2017 Comp Metabolic Okc477 ALK PHOS 69 U/L 11/29/2017 Comp Metabolic Iom920 AST(SGOT) 13 U/L 11/29/2017 Comp Metabolic Esb222 ALT(SGPT) 16 U/L 11/29/2017 Comp Metabolic Lcq886 BILI T 0.7 mg/dL 11/29/2017 Comp Metabolic Gzz069 ALBUMIN 3.5 g/dL 11/29/2017 Comp Metabolic Kxn107 TPRO 5.7 g/dL 11/29/2017 Comp Metabolic Asx502 GLOB 2.2 g/dL 11/29/2017 Comp Metabolic Lhf023 A/G Ratio 1.6 Ratio 11/29/2017 Comp Metabolic Egx383 Osmo 290 mOsmo 11/29/2017 Review of Systems [...] clear 05/29/2018 None Full Exam - General 1995 Ears/Nose/Throat [...] 1: 98/56 Code: 8480-6 BMI: 32.9 Code: 75548- 5 Heart Rate 1: 35 bpm Height: 5'7" SpO2: 95% Weight: 210 lbs 05/29/2018 Blood Pressure 1: 112/68 Code: 8480-6 BMI: 33.4 Code: 08469-4 Heart Rate 1: 100 bpm Height: 5'7" [...] 1: 138/76 Code: 8480-6 BMI: 33.2 Code: 03711-2 Heart Rate 1: 83 bpm Height: 5'7" [...] data Encounters Encounter Performer Location Codes Date ([id number]) 78731 EST. PATIENT, LEVEL IV Diagnosis: Type 2 diabetes mellitus with hyperglycemia[ICD10: E11.65] Diagnosis: Chronic kidney disease, stage 3 (moderate)[ICD10: N18.3] Diagnosis: Muscle weakness (generalized)[ICD10: M62.81] Diagnosis: Diarrhea, unspecified[ICD10: R19.7] Geneva Spaulding MD, [facility] CPT-4: 60344 08/08/2018 [id number]) [id number] EST. PATIENT, LEVEL IV Diagnosis: Type 2 diabetes mellitus with hyperglycemia[ICD10: E11.65] Diagnosis: Essential (primary) hypertension[ICD10: I10] Diagnosis: Chronic kidney disease, stage 3 (moderate)[ICD10: N18.3] Diagnosis: Primary generalized (osteo)arthritis[ICD10: M15.0] Geneva Spaulding MD, [facility] CPT-4: 73212 05/29/2018 [id number]) 92707 EST. PATIENT, LEVEL IV Diagnosis: Type 2 diabetes mellitus with hyperglycemia[ICD10: E11.65] Diagnosis: Essential (primary) hypertension[ICD10: I10] Diagnosis: Diarrhea, unspecified[ICD10: R19.7] Geneva Spaulding MD, [facility] CPT-4: 51591 02/27/2018 [id number]) 79626 EST. PATIENT, LEVEL IV Diagnosis: Essential (primary) hypertension[ICD10: I10] Diagnosis: Type 2 diabetes mellitus with hyperglycemia[ICD10: E11.65] Diagnosis: Chronic kidney disease, stage 3 (moderate)[ICD10: N18.3] Diagnosis: Cervicalgia[ICD10: M54.2] Geneva Spaulding MD, [facility] CPT-4: 30421 11/28/2017 [id number]) 07165 EST. PATIENT, LEVEL III Diagnosis: Essential (primary) hypertension[ICD10: I10] Diagnosis: Type 2 diabetes mellitus with hyperglycemia[ICD10: E11.65] Diagnosis: Foot drop, left foot[ICD10: M21.372] Geneva Spaulding MD, [facility] CPT-4: 48572 08/29/2017 OFFICE VISIT, NEW - LEVEL 4 Diagnosis: Essential (primary) hypertension[ICD10: I10] Diagnosis: Type 2 diabetes mellitus with hyperglycemia[ICD10: E11.65] Diagnosis: Chronic kidney disease, stage 3 (moderate)[ICD10: N18.3] Diagnosis: Muscle weakness (generalized)[ICD10: M62.81] [facility] CPT-4: 49884 07/23/2017 Plan of Care Planned Activity Notes Codes Status Date Visit Plan: DM-change jardiance to 1/2 tab daily and administer in the morning instead of bedtime- continue to monitor blood sugars Diarrhea -improved- no diarrhea since this morning -increase probiotics -continue electrolyte drinks -check labs and stool studies-call if not improving or if any worse CKD-check labs HTN-slightly low today but readings from [place] okay -increase fluids as directed and monitor blood pressure and pulse 08/08/2018 Patient Education: Patient Medication Summary Completed [...] CKD-check labs 05/29/2018 Appointment: Geneva Case WPtel: [address] [place], [place] [phone] (30 min) [facility] 05/29/2018 Patient Education: Patient Medication Summary Completed [...] change in blood pressure readings at home. Kvjkgxem-ezbkfqsfjivu-zvrtp probiotics as directed 02/27/2018 Appointment: Geneva Case WPtel: [address] [phone] (15 min) Moderate 02/27/2018 Patient Education: [...] disease-check labs 11/28/2017 Appointment: Geneva Case WPtel: [address] [phone] [place] (15 min) Moderate 11/28/2017 Patient Education: Patient [...] safer ambulation. 08/29/2017 Appointment: Geneva Case WPtel: [address] [place], [place] [phone] (15 min) Moderate 08/29/2017 Patient Education: Patient [...] are starting to become less controlled. Generalized isawonqr-maweljlzh-ymhckjhh PT- plan to move back to [place] when able 07/23/2017 [facility] [address] [phone] [place] New Patient 07/23/2017 Patient Education: Patient [...] labs HTN-slightly low today but readings from [place] okay -increase fluids as directed and monitor [...] are starting to become less controlled. Generalized xlzpagzr-rsciulpnx-qhgkygsq PT-plan to move back to [place] when able SCHEDULE TYLENOL TWICE DAILY AND [...] change in blood pressure readings at home. Kgcngjgl-ufdublnpuyaw-gssuq probiotics as directed . Hypertension - well [...]
--- OUTSIDE RECORDS SUMMARY | 2018-08-21 10:23 | XMS REPORT | CCD ---
Author Author Geneva Case MD, [facility] Address [address] [place] [address] Phone Care Team Providers Care Binding Folder Machine Name Role Phone PP Unavailable CCM Unavailable Summary Purpose Interface Exchange Insurance Providers Payer name Policy type / Coverage type Covered constitution party ID Effective Begin Date Effective End Date WPS Medicare Part B Medicare Part B [id number] Unknown [employer] Medicare Part B [id number] Unknown Family history Mother Diagnosis Age At Onset No Known Diseases N/A Father Diagnosis Age At Onset No Known Diseases N/A Social History Social History Element Codes Description Effective Dates Living arrangements Unknown Assisted Living [place] 11/28/2017 Marital status Unknown 07/23/2017 Employment Unknown Retired 07/23/2017 Allergies, Adverse Reactions, Alerts Substance Reaction Codes Entered Date Inactivated Date Status * OTHER REACTION - SEE ANSWER BOX Metformin Unknown 07/23/2017 No Inactive Date Active Past Medical History Illness Codes Condition Status Onset Date Resolved Date Chronic kidney disease, stage 3 (moderate) ICD-9: 585.3 ICD-10: N18.3 Active 07/23/2017 Unknown Essential (primary) hypertension ICD-9: 401.1 ICD-10: I10 Active 07/23/2017 Unknown Primary generalized (osteo)arthritis ICD-9: 715.09 ICD-10: M15.0 Active 05/29/2018 Unknown Type 2 diabetes mellitus with hyperglycemia ICD-9: 250.02 ICD-10: E11.65 Active 07/23/2017 Unknown Diarrhea, unspecified ICD- 9: 787.91 ICD-10: R19.7 Active 02/27/2018 Unknown Cervicalgia ICD-9: 723.1 ICD-10: M54.2 Active 11/28/2017 Unknown Foot drop, left foot ICD- 9: 736.79 ICD-10: M21.372 Active 08/29/2017 Unknown Muscle weakness (generalized) ICD-9: 728.87 ICD-10: M62.81 Active 07/23/2017 Unknown Problems Condition Codes Effective Dates Condition Status Chronic kidney disease, stage 3 (moderate) ICD-9: 585.3 ICD-10: N18.3 07/23/2017 Active Essential (primary) hypertension ICD-9: 401.1 ICD-10: I10 07/23/2017 Active Primary generalized (osteo)arthritis ICD-9: 715.09 ICD-10: M15.0 05/29/2018 Active Type 2 diabetes mellitus with hyperglycemia ICD-9: 250.02 ICD-10: E11.65 07/23/2017 Active Diarrhea, unspecified ICD- 9: 787.91 ICD-10: R19.7 02/27/2018 Active Cervicalgia ICD-9: 723.1 ICD-10: M54.2 11/28/2017 Active Foot drop, left foot ICD- 9: 736.79 ICD-10: M21.372 08/29/2017 Active Muscle weakness (generalized) ICD-9: 728.87 ICD-10: M62.81 07/23/2017 Active Medications Medication Codes Instructions Start Date Stop Date Status Fill Instructions Vitamin D3 1,000 unit tablet RxNorm: 829641 1 Tablet(s) PO daily 07/22/2018 06/16/2019 Active amlodipine 5 mg tablet RxNorm: 982597 TAKE ONE TABLET BY MOUTH DAILY 07/01/2018 06/25/2019 Active Generic For:NORVASC 5MG 06/30/2018 1:40:01 PM gabapentin 100 mg capsule RxNorm: 422231 TAKE 1 CAPSULE BY MOUTH THREE TIMES DAILY 07/01/2018 01/26/2019 Active Generic For:NEURONTIN 100MG 06/30/2018 1:39:54 PM Tylenol 325 mg tablet RxNorm: 000772 TAKE 1 TABLET BY MOUTH TWICE DAILY 06/17/2018 06/11/2019 Active Generic For:TYLENOL 325MG 06/17/2018 12:45:03 PM diclofenac 1 % topical gel RxNorm: 070720 APPLY 2 GRAMS TOP TO HANDS FOUR TIMES DAILY BILATERALLY 06/10/2018 10/07/2018 Active diclofenac 1 % topical gel RxNorm: 991658 APPLY 2 GRAMS TOP TO HANDS FOUR TIMES DAILY BILATERALLY 06/10/2018 06/09/2018 Inactive Protonix 40 mg tablet,delayed release RxNorm: 825963 TAKE 1 TABLET BY MOUTH EVERY MORNING 06/09/2018 10/06/2018 Active Generic For:PROTONIX 40MG 06/09/2018 2:16:07 PM tamsulosin 0.4 mg capsule RxNorm: 016604 TAKE 1 CAPSULE BY MOUTH ONCE DAILY 06/04/2018 05/29/2019 Active Generic For:FLOMAX 0.4MG 06/03/2018 4:14:32 PM N O T I C E Last quantity doesn't match original quantity glimepiride 2 mg tablet RxNorm: 334997 TAKE 1 TABLET BY MOUTH ONCE DAILY 05/26/2018 04/20/2019 Active Generic For:AMARYL 2MG 05/26/2018 1:31:32 PM Floranex 100 million cell oral granules in packet RxNorm: 1 Tablet(s) PO daily 05/23/2018 09/19/2018 Active Floranex 100 million cell oral granules in packet RxNorm: 1 Tablet(s) PO daily 05/23/2018 05/22/2018 Inactive Proscar 5 mg tablet RxNorm: 480410 TAKE 1 TABLET BY MOUTH ONCE DAILY 05/05/2018 10/31/2018 Active Generic For:PROSCAR 5MG 05/05/2018 9:23:48 AM gabapentin 100 mg capsule RxNorm: 936665 TAKE 1 CAPSULE BY MOUTH THREE TIMES DAILY 04/07/2018 06/30/2018 Inactive Generic For:NEURONTIN 100MG 04/07/2018 10:37:42 AM allopurinol 100 mg tablet RxNorm: 071140 TAKE 1 TABLET BY MOUTH TWICE DAILY 03/20/2018 09/15/2018 Active 03/19/2018 9:53:25 AM pravastatin 40 mg tablet RxNorm: 347316 TAKE ONE TABLET BY MOUTH EVERY NIGHT AT BEDTIME 03/13/2018 09/08/2018 Active Generic For:PRAVACHOL 40MG 03/13/2018 9:02:23 AM N O T I C E Last quantity doesn't match original quantity Protonix 40 mg tablet,delayed release RxNorm: 708528 TAKE 1 TABLET BY MOUTH EVERY MORNING 03/13/2018 06/08/2018 Inactive Generic For:PROTONIX 40MG 03/13/2018 9:02:28 AM N O T I C E Last quantity doesn't match original quantity Plavix 75 mg tablet RxNorm: 906614 TAKE 1 TABLET BY MOUTH ONCE DAILY 03/10/2018 10/05/2018 Active Generic For:*PLAVIX 75MG 03/10/2018 10:12:55 AM tamsulosin 0.4 mg capsule RxNorm: 354377 TAKE 1 CAPSULE BY MOUTH ONCE DAILY 03/10/2018 06/03/2018 Inactive Generic For:FLOMAX 0.4MG 03/10/2018 10:12:59 AM Jardiance 10 mg tablet RxNorm: 3211041 1 Tablet(s) PO daily 02/20/2018 08/18/2018 Active Jardiance 10 mg tablet RxNorm: 5204448 1 Tablet(s) PO daily 02/20/2018 02/19/2018 Inactive Plavix 75 mg tablet RxNorm: 297345 1 Tablet(s) PO QHS 02/12/2018 03/09/2018 Inactive tamsulosin 0.4 mg capsule RxNorm: 395013 1 Capsule(s) PO daily 02/12/2018 03/09/2018 Inactive loperamide 2 mg tablet RxNorm: 099754 2 after 1st stool & 1 after each add/max 4 in 24 hours Tablet(s) PO 02/03/2018 06/02/2018 Inactive Tylenol 325 mg tablet RxNorm: 620502 1 Tablet(s) PO QHS and every 6 hours prn 02/03/2018 02/02/2018 Inactive Tylenol 325 mg tablet RxNorm: 103531 1 Tablet(s) PO QHS and every 6 hours prn 02/03/2018 06/02/2018 Inactive loperamide 2 mg tablet RxNorm: 940971 2 after 1st stool & 1 after each add/max 4 in 24 hours Tablet(s) PO 02/03/2018 02/02/2018 Inactive Vitamin B-12 1,000 mcg tablet RxNorm: 674460 TAKE 1 TABLET BY MOUTH ONCE DAILY 01/27/2018 12/22/2018 Active 01/27/2018 10:10:15 AM glimepiride 2 mg tablet RxNorm: 815472 TAKE 1 TABLET BY MOUTH ONCE DAILY 01/27/2018 05/25/2018 Inactive Generic For:AMARYL 2MG 01/27/2018 10:09:58 AM Januvia 100 mg tablet RxNorm: 533385 TAKE 1 TABLET BY MOUTH ONCE DAILY 01/20/2018 02/19/2018 Inactive 01/20/2018 9:58:08 AM Alcohol Pads RxNorm: 992527 1 [facility] 01/07/2018 No Stop Date Active amlodipine 5 mg tablet RxNorm: 203066 TAKE ONE TABLET BY MOUTH DAILY 01/06/2018 06/30/2018 Inactive Generic For:NORVASC 5MG 01/06/2018 10:33:58 AM N O T I C E Last quantity doesn't match original quantity gabapentin 100 mg capsule RxNorm: 783513 TAKE 1 CAPSULE BY MOUTH THREE TIMES DAILY 01/06/2018 04/06/2018 Inactive Generic For:NEURONTIN 100MG 01/06/2018 10:33:55 AM N O T I C E Last quantity doesn't match original quantity Protonix 40 mg tablet,delayed release RxNorm: 115524 TAKE 1 TABLET BY MOUTH EVERY MORNING 12/16/2017 03/12/2018 Inactive Generic For:PROTONIX 40MG Proscar 5 mg tablet RxNorm: 598253 TAKE 1 TABLET BY MOUTH ONCE DAILY 11/04/2017 05/02/2018 Inactive Generic For:PROSCAR 5MG 11/04/2017 9:47:27 AM Aspirin Low Dose 81 mg tablet,delayed release RxNorm: 680702 1 Tablet(s) PO [facility] 10/21/2017 10/15/2018 Active amlodipine 5 mg tablet RxNorm: 220908 TAKE ONE TABLET BY MOUTH DAILY 10/07/2017 01/04/2018 Inactive Generic For:NORVASC 5MG 10/07/2017 9:55:37 AM gabapentin 100 mg capsule RxNorm: 894001 TAKE 1 CAPSULE BY MOUTH THREE TIMES DAILY 10/07/2017 01/04/2018 Inactive Generic For:NEURONTIN 100MG 10/07/2017 9:55:26 AM Januvia 100 mg tablet RxNorm: 075374 TAKE 1 TABLET BY MOUTH ONCE DAILY 09/23/2017 01/19/2018 Inactive 09/23/2017 9:25:24 AM pravastatin 40 mg tablet RxNorm: 145200 TAKE ONE TABLET BY MOUTH EVERY NIGHT AT BEDTIME 09/19/2017 03/12/2018 Inactive Generic For:PRAVACHOL 40MG 09/19/2017 9:12:02 AM Protonix 40 mg tablet,delayed release RxNorm: 241924 TAKE 1 TABLET BY MOUTH EVERY MORNING 09/16/2017 12/15/2017 Inactive Generic For:PROTONIX 40MG 09/16/2017 9:50:22 AM amlodipine 5 mg tablet RxNorm: 175606 TAKE ONE TABLET BY MOUTH DAILY 09/09/2017 10/06/2017 Inactive Generic For:NORVASC 5MG 09/09/2017 9:16:37 AM gabapentin 100 mg capsule RxNorm: 067110 TAKE 1 CAPSULE BY MOUTH THREE TIMES DAILY 09/09/2017 10/06/2017 Inactive Generic For:NEURONTIN 100MG 09/09/2017 9:16:33 AM Vitamin D3 1,000 unit tablet RxNorm: 142769 1 Tablet(s) PO daily 09/04/2017 07/21/2018 Inactive Vitamin D3 1,000 unit tablet RxNorm: 430284 1 Tablet(s) PO daily 09/03/2017 09/03/2017 Inactive glimepiride 2 mg tablet RxNorm: 313445 TAKE 1 TABLET BY MOUTH ONCE DAILY 09/02/2017 01/26/2018 Inactive Generic For:AMARYL 2MG 09/02/2017 9:35:29 AM Vitamin B-12 1,000 mcg tablet RxNorm: 652501 TAKE 1 TABLET BY MOUTH ONCE DAILY 09/02/2017 01/26/2018 Inactive 09/02/2017 9:35:38 AM pravastatin 40 mg tablet RxNorm: 133014 1 Tablet(s) PO QHS 08/22/2017 08/21/2017 Inactive pravastatin 40 mg tablet RxNorm: 939755 1 Tablet(s) PO QHS 08/22/2017 09/18/2017 Inactive glimepiride 2 mg tablet RxNorm: 422239 1 Tablet(s) PO daily 07/24/2017 09/01/2017 Inactive hydrocodone 5 mg-acetaminophen 325 mg tablet RxNorm: 468235 1-2 Tablet(s) PO Q4H as needed for pain 07/23/2017 08/28/2017 Inactive Proscar 5 mg tablet RxNorm: 962304 1 Tablet(s) PO daily No Start Date 11/03/2017 Inactive Metamucil oral packet RxNorm: 1 packet PO daily No Start Date 07/23/2017 Inactive Vitamin B-12 1,000 mcg tablet RxNorm: 668359 1 Tablet(s) PO daily No Start Date 09/01/2017 Inactive tamsulosin 0.4 mg capsule RxNorm: 948915 1 Capsule(s) PO daily No Start Date 02/11/2018 Inactive Plavix 75 mg tablet RxNorm: 765509 1 Tablet(s) PO QHS No Start Date 02/11/2018 Inactive Alcohol Pads RxNorm: 134195 1 TOP UD No Start Date 01/06/2018 Inactive Vitamin D3 1,000 unit tablet RxNorm: 116758 1 Tablet(s) PO daily No Start Date 09/02/2017 Inactive gabapentin 100 mg capsule RxNorm: 157258 1 Capsule(s) PO TID No Start Date 09/08/2017 Inactive olanzapine 5 mg tablet RxNorm: 598808 1 Tablet(s) PO QHS No Start Date 07/22/2017 Inactive Lipitor 40 mg tablet RxNorm: 092063 1 Tablet(s) PO QHS No Start Date 08/21/2017 Inactive Januvia 100 mg tablet RxNorm: 777321 1 Tablet(s) PO QHS No Start Date 09/22/2017 Inactive folic acid 1 mg tablet RxNorm: 088764 1 Tablet(s) PO daily No Start Date 07/23/2017 Inactive hydrocodone 5 mg-acetaminophen 325 mg tablet RxNorm: 036225 1 Tablet(s) PO Q4H as needed for pain No Start Date 07/22/2017 Inactive Protonix 40 mg tablet,delayed release RxNorm: 844782 1 Tablet(s) PO daily No Start Date 09/15/2017 Inactive allopurinol 100 mg tablet RxNorm: 243106 1 Tablet(s) PO BID No Start Date 03/19/2018 Inactive amlodipine 5 mg tablet RxNorm: 095511 1 Tablet(s) PO daily No Start Date 09/08/2017 Inactive Aspirin Low Dose 81 mg tablet,delayed release RxNorm: 432479 1 Tablet(s) PO QHS No Start Date 10/20/2017 Inactive Medication Administered No Medication Administered data Immunizations No Immunization data Assessments Condition Codes Effective Dates Chronic kidney disease, stage 3 (moderate) ICD-10: N18.3 ICD-9: 585.3 05/29/2018 Essential (primary) hypertension ICD-10: I10 ICD-9: 401.1 05/29/2018 Primary generalized (osteo)arthritis ICD-10: M15.0 ICD-9: 715.09 05/29/2018 Type 2 diabetes mellitus with hyperglycemia ICD-10: E11.65 ICD-9: 250.02 05/29/2018 Diarrhea, unspecified ICD-10: R19.7 ICD-9: 787.91 02/27/2018 Cervicalgia ICD-10: M54.2 ICD-9: 723.1 11/28/2017 Foot drop, left foot ICD-10: M21.372 ICD-9: 736.79 08/29/2017 Muscle weakness (generalized) ICD-10: M62.81 ICD-9: 728.87 07/23/2017 Reason For Visit Reason For Visit Effective Dates Notes diabetes mellitus 05/29/2018 diabetes mellitus 02/27/2018 diabetes mellitus 11/28/2017 diabetes mellitus 08/29/2017 diabetes mellitus 07/23/2017 Results Observation Observation Code Item Item Code Result Date %Hba1C Ibt156 % HbA1c 13306- 6 7.0 % 05/29/2018 %Hba1C Ucy815 Gluc Ave 154 mg/dL 05/29/2018 Comp Metabolic Gyl850 NA 139 mEq/L 05/29/2018 Comp Metabolic Eyf731 K 4.1 mEq/L 05/29/2018 Comp Metabolic Tqi668 CL 109 mEq/L 05/29/2018 Comp Metabolic Wqq575 CO2 23.0 mEq/L 05/29/2018 Comp Metabolic Foz776 ANION GAP 11 05/29/2018 Comp Metabolic Goo695 GLUCOSE 164 mg/dL 05/29/2018 Comp Metabolic Nos079 Creat 1.4 mg/dL 05/29/2018 Comp Metabolic Otq011 eGFR 50 ml/min/1.73m2 05/29/2018 Comp Metabolic Rtn563 BUN 30 mg/dL 05/29/2018 Comp Metabolic Nsv503 B/C Ratio 21.0 Ratio 05/29/2018 Comp Metabolic Ypb455 CALCIUM 9.2 mg/dL 05/29/2018 Comp Metabolic Gzw309 ALK PHOS 55 U/L 05/29/2018 Comp Metabolic Jkf438 AST(SGOT) 11 U/L 05/29/2018 Comp Metabolic Ekl037 ALT(SGPT) 15 U/L 05/29/2018 Comp Metabolic Nwr670 BILI T 0.8 mg/dL 05/29/2018 Comp Metabolic Tow479 ALBUMIN 4.0 g/dL 05/29/2018 Comp Metabolic Drf390 TPRO 6.3 g/dL 05/29/2018 Comp Metabolic Pbq669 GLOB 2.4 g/dL 05/29/2018 Comp Metabolic Vew433 A/G Ratio 1.7 Ratio 05/29/2018 Comp Metabolic Puf746 Osmo 287 mOsmo 05/29/2018 Cbc With Differential [...] 31.1 pg 05/29/2018 Cbc With Differential Ord2 Dane% 8.9 % 05/29/2018 Cbc With Differential Ord2 [...] 1.90 K/ul 05/29/2018 Cbc With Differential Ord2 Dane ABS# 0.7 K/ul 05/29/2018 Cbc With Differential [...] 30.6 pg 11/29/2017 Cbc With Differential Ord2 Dane% 8.0 % 11/29/2017 Cbc With Differential Ord2 [...] 1.46 K/ul 11/29/2017 Cbc With Differential Ord2 Dane ABS# 0.6 K/ul 11/29/2017 Cbc With Differential Ord2 Eos ABS# 0.2 K/ul 11/29/2017 Cbc With Differential Ord2 Baso ABS# 0.0 K/ul 11/29/2017 Lipid Ord30 CHOL 115 mg/dL 11/29/2017 Lipid Ord30 HDL 40.0 mg/dl 11/29/2017 Lipid Ord30 TRIG 114 mg/dL 11/29/2017 Lipid Ord30 LDL 52 mg/dL 11/29/2017 Lipid Ord30 C/HDL 2.9 Ratio 11/29/2017 %Hba1C Ofz630 % HbA1c 79639- 6 6.5 % 11/29/2017 %Hba1C Vhl342 Gluc Ave 140 mg/dL 11/29/2017 Comp Metabolic Dcr804 NA 140 mEq/L 11/29/2017 Comp Metabolic Ygd485 K 3.6 mEq/L 11/29/2017 Comp Metabolic Tch380 CL 106 mEq/L 11/29/2017 Comp Metabolic Peg800 CO2 24.0 mEq/L 11/29/2017 Comp Metabolic Qeo396 ANION GAP 14 11/29/2017 Comp Metabolic Aic534 GLUCOSE 151 mg/dL 11/29/2017 Comp Metabolic Ykn524 Creat 1.2 mg/dL 11/29/2017 Comp Metabolic Gff881 eGFR 61 ml/min/1.73m2 11/29/2017 Comp Metabolic Lnc314 BUN 34 mg/dL 11/29/2017 Comp Metabolic Wec930 B/C Ratio 28.3 Ratio 11/29/2017 Comp Metabolic Tfw953 CALCIUM 8.9 mg/dL 11/29/2017 Comp Metabolic Qgw231 ALK PHOS 69 U/L 11/29/2017 Comp Metabolic Mkh054 AST(SGOT) 13 U/L 11/29/2017 Comp Metabolic Lzn325 ALT(SGPT) 16 U/L 11/29/2017 Comp Metabolic Rmu390 BILI T 0.7 mg/dL 11/29/2017 Comp Metabolic Xaf594 ALBUMIN 3.5 g/dL 11/29/2017 Comp Metabolic Hui734 TPRO 5.7 g/dL 11/29/2017 Comp Metabolic Jjz706 GLOB 2.2 g/dL 11/29/2017 Comp Metabolic Bhg670 A/G Ratio 1.6 Ratio 11/29/2017 Comp Metabolic Ogn549 Osmo 290 mOsmo 11/29/2017 Review of Systems System Result Effective Dates Constitutional No recent illness 05/29/2018 Constitutional No [...] Effective Dates Notes Full Exam - General 1995 Constitutional general appearance Overall: well developed 05/29/2018 [...] clear 11/28/2017 None Full Exam - General 1995 Ears/Nose/Throat [...] No Procedures data Vital Signs Date Vital 05/29/2018 Blood Pressure 1: 112/68 Code: 8480-6 BMI: 33.4 Code: 30257-1 Heart Rate 1: 100 bpm Height: 5'7" [...] 1: 138/76 Code: 8480-6 BMI: 33.2 Code: 18335-9 Heart Rate 1: 83 bpm Height: 5'7" SpO2: 98% Weight: 212 lbs Functional Status No Functional Status data History of Present Illness Symptom Name Status Result Effective Date Notes Quality non-insulin dependent 05/29/2018 None Severity mild [...] data Encounters Encounter Performer Location Codes Date ([id number]) [id number] EST. PATIENT, LEVEL IV Diagnosis: Type 2 diabetes mellitus with hyperglycemia[ICD10: E11.65] Diagnosis: Essential (primary) hypertension[ICD10: I10] Diagnosis: Chronic kidney disease, stage 3 (moderate)[ICD10: N18.3] Diagnosis: Primary generalized (osteo)arthritis[ICD10: M15.0] [facility] CPT-4: 46080 05/29/2018 [id number]) [id number] EST. PATIENT, LEVEL IV Diagnosis: Type 2 diabetes mellitus with hyperglycemia[ICD10: E11.65] Diagnosis: Essential (primary) hypertension[ICD10: I10] Diagnosis: Diarrhea, unspecified[ICD10: R19.7] [facility] CPT-4: 98445 02/27/2018 ([id number]) 82214 EST. PATIENT, LEVEL IV Diagnosis: Essential (primary) hypertension[ICD10: I10] Diagnosis: Type 2 diabetes mellitus with hyperglycemia[ICD10: E11.65] Diagnosis: Chronic kidney disease, stage 3 (moderate)[ICD10: N18.3] Diagnosis: Cervicalgia[ICD10: M54.2] [facility] CPT-4: 16991 11/28/2017 ([id number]) 47213 EST. PATIENT, LEVEL III Diagnosis: Essential (primary) hypertension[ICD10: I10] Diagnosis: Type 2 diabetes mellitus with hyperglycemia[ICD10: E11.65] Diagnosis: Foot drop, left foot[ICD10: M21.372] [facility] CPT-4: 66094 08/29/2017 OFFICE VISIT, NEW - LEVEL 4 Diagnosis: Essential (primary) hypertension[ICD10: I10] Diagnosis: Type 2 diabetes mellitus with hyperglycemia[ICD10: E11.65] Diagnosis: Chronic kidney disease, stage 3 (moderate)[ICD10: N18.3] Diagnosis: Muscle weakness (generalized)[ICD10: M62.81] [facility] CPT-4: 04425 07/23/2017 Plan of Care Planned Activity Notes Codes Status Date Visit Plan: Diabetes Mellitus - controlled - [...] CKD-check labs 05/29/2018 [facility]ment[facility] [phone] [phone] ([facility]) Complex 05/29/2018 Patient Education: Patient [...] change in blood pressure readings at home. Xentckar-mbbueoeklwrt-oagpk probiotics as directed 02/27/2018 [facility]ment: [facility] [phone] [phone] (15 min) Moderate 02/27/2018 Patient Education: Patient [...] labs 11/28/2017 [facility]ment: [facility] [phone] [phone] [place] (15 min) Moderate 11/28/2017 Patient Education: [...] safer ambulation. 08/29/2017 Appointment: Geneva Case WPtel: [address] [place] [address] (15 min) Moderate 08/29/2017 Patient Education: Patient [...] are starting to become less controlled. Generalized sdrzetkz-tjzlkaavl-kyhxjotd PT- plan to move back to [place] when able 07/23/2017 Appointment: Geneva Case WPtel: [address] [place], [place] [id number] [place] [address] New Patient 07/23/2017 Patient Education: Patient Medication Summary Completed 07/23/2017 Instructions Comment tylenol 325mg at bedtime check labs if [...] are starting to become less controlled. Generalized gfrgasmz-jffblsamx-mdlshoxk PT-plan to move back to [place] when able SCHEDULE TYLENOL TWICE DAILY AND [...] change in blood pressure readings at home. Iwrladic-bczsbjrxqptq-zappn probiotics as directed . Hypertension - well [...]
--- OUTSIDE RECORDS SUMMARY | 2018-08-21 10:24 | XMS REPORT | CCD ---
Author Author Geneva Case MD, [facility] Address [address] [place] [address] Phone Care Team Providers Care Storage Facility Rental Clerk Name Role Phone PP Unavailable CCM Unavailable Summary Purpose Interface Exchange Insurance Providers Payer name Policy type / Coverage type Covered constitution party ID Effective Begin Date Effective End Date WPS Medicare Part B Medicare Part B [id number] 2017 Unknown [employer] Medicare Part B [id number] Unknown Family history Mother Diagnosis Age At Onset No Known Diseases N/A Father Diagnosis Age At Onset No Known Diseases N/A Social History Social History Element Codes Description Effective Dates Living arrangements Unknown Assisted Living [place] 11/28/2017 Marital status Unknown 07/23/2017 Employment Unknown [...] Start Date Stop Date Status Fill Instructions amlodipine 5 mg tablet RxNorm: 513740 TAKE ONE TABLET BY MOUTH DAILY 07/01/2018 06/25/2019 Active Generic For:NORVASC 5MG 06/30/2018 1:40:01 PM gabapentin 100 mg capsule RxNorm: 695843 TAKE 1 CAPSULE BY MOUTH THREE TIMES DAILY 07/01/2018 01/26/2019 Active Generic For:NEURONTIN 100MG 06/30/2018 1:39:54 PM Tylenol 325 mg tablet RxNorm: 934877 TAKE 1 TABLET BY MOUTH TWICE DAILY 06/17/2018 06/11/2019 Active Generic For:TYLENOL 325MG 06/17/2018 12:45:03 PM diclofenac 1 % topical gel RxNorm: 640639 APPLY 2 GRAMS TOP TO HANDS FOUR TIMES DAILY BILATERALLY 06/10/2018 10/07/2018 Active diclofenac 1 % topical gel RxNorm: 077218 APPLY 2 GRAMS TOP TO HANDS FOUR TIMES DAILY BILATERALLY 06/10/2018 06/09/2018 Inactive Protonix 40 mg tablet,delayed release RxNorm: 184177 TAKE 1 TABLET BY MOUTH EVERY MORNING 06/09/2018 10/06/2018 Active Generic For:PROTONIX 40MG 06/09/2018 2:16:07 PM tamsulosin 0.4 mg capsule RxNorm: 385173 TAKE 1 CAPSULE BY MOUTH ONCE DAILY 06/04/2018 05/29/2019 Active Generic For:FLOMAX 0.4MG 06/03/2018 4:14:32 PM N O T I C E Last quantity doesn't match original quantity glimepiride 2 mg tablet RxNorm: 245786 TAKE 1 TABLET BY MOUTH ONCE DAILY 05/26/2018 04/20/2019 Active Generic For:AMARYL 2MG 05/26/2018 1:31:32 PM Floranex 100 million cell oral granules in packet RxNorm: 1 Tablet(s) PO daily 05/23/2018 09/19/2018 Active Floranex 100 million cell oral granules in packet RxNorm: 1 Tablet(s) PO daily 05/23/2018 05/22/2018 Inactive Proscar 5 mg tablet RxNorm: 940574 TAKE 1 TABLET BY MOUTH ONCE DAILY 05/05/2018 10/31/2018 Active Generic For:PROSCAR 5MG 05/05/2018 9:23:48 AM gabapentin 100 mg capsule RxNorm: 901945 TAKE 1 CAPSULE BY MOUTH THREE TIMES DAILY 04/07/2018 06/30/2018 Inactive Generic For:NEURONTIN 100MG 04/07/2018 10:37:42 AM allopurinol 100 mg tablet RxNorm: 400967 TAKE 1 TABLET BY MOUTH TWICE DAILY 03/20/2018 09/15/2018 Active 03/19/2018 9:53:25 AM pravastatin 40 mg tablet RxNorm: 856269 TAKE ONE TABLET BY MOUTH EVERY NIGHT AT BEDTIME 03/13/2018 09/08/2018 Active Generic For:PRAVACHOL 40MG 03/13/2018 9:02:23 AM N O T I C E Last quantity doesn't match original quantity Protonix 40 mg tablet,delayed release RxNorm: 783271 TAKE 1 TABLET BY MOUTH EVERY MORNING 03/13/2018 06/08/2018 Inactive Generic For:PROTONIX 40MG 03/13/2018 9:02:28 AM N O T I C E Last quantity doesn't match original quantity Plavix 75 mg tablet RxNorm: 461873 TAKE 1 TABLET BY MOUTH ONCE DAILY 03/10/2018 10/05/2018 Active Generic For:*PLAVIX 75MG 03/10/2018 10:12:55 AM tamsulosin 0.4 mg capsule RxNorm: 022360 TAKE 1 CAPSULE BY MOUTH ONCE DAILY 03/10/2018 06/03/2018 Inactive Generic For:FLOMAX 0.4MG 03/10/2018 10:12:59 AM Jardiance 10 mg tablet RxNorm: 7142111 1 Tablet(s) PO daily 02/20/2018 08/18/2018 Active Jardiance 10 mg tablet RxNorm: 1016539 1 Tablet(s) PO daily 02/20/2018 02/19/2018 Inactive Plavix 75 mg tablet RxNorm: 867941 1 Tablet(s) PO QHS 02/12/2018 03/09/2018 Inactive tamsulosin 0.4 mg capsule RxNorm: 622774 1 Capsule(s) PO daily 02/12/2018 03/09/2018 Inactive loperamide 2 mg tablet RxNorm: 351440 2 after 1st stool & 1 after each add/max 4 in 24 hours Tablet(s) PO 02/03/2018 06/02/2018 Inactive Tylenol 325 mg tablet RxNorm: 424993 1 Tablet(s) PO QHS and every 6 hours prn 02/03/2018 02/02/2018 Inactive Tylenol 325 mg tablet RxNorm: 294508 1 Tablet(s) PO QHS and every 6 hours prn 02/03/2018 06/02/2018 Inactive loperamide 2 mg tablet RxNorm: 214603 2 after 1st stool & 1 after each add/max 4 in 24 hours Tablet(s) PO 02/03/2018 02/02/2018 Inactive Vitamin B-12 1,000 mcg tablet RxNorm: 586869 TAKE 1 TABLET BY MOUTH ONCE DAILY 01/27/2018 12/22/2018 Active 01/27/2018 10:10:15 AM glimepiride 2 mg tablet RxNorm: 719452 TAKE 1 TABLET BY MOUTH ONCE DAILY 01/27/2018 05/25/2018 Inactive Generic For:AMARYL 2MG 01/27/2018 10:09:58 AM Januvia 100 mg tablet RxNorm: 971813 TAKE 1 TABLET BY MOUTH ONCE DAILY 01/20/2018 02/19/2018 Inactive 01/20/2018 9:58:08 AM Alcohol Pads RxNorm: 147413 1 [facility] 01/07/2018 No Stop Date Active amlodipine 5 mg tablet RxNorm: 619913 TAKE ONE TABLET BY MOUTH DAILY 01/06/2018 06/30/2018 Inactive Generic For:NORVASC 5MG 01/06/2018 10:33:58 AM N O T I C E Last quantity doesn't match original quantity gabapentin 100 mg capsule RxNorm: 005430 TAKE 1 CAPSULE BY MOUTH THREE TIMES DAILY 01/06/2018 04/06/2018 Inactive Generic For:NEURONTIN 100MG 01/06/2018 10:33:55 AM N O T I C E Last quantity doesn't match original quantity Protonix 40 mg tablet,delayed release RxNorm: 803968 TAKE 1 TABLET BY MOUTH EVERY MORNING 12/16/2017 03/12/2018 Inactive Generic For:PROTONIX 40MG Proscar 5 mg tablet RxNorm: 094851 TAKE 1 TABLET BY MOUTH ONCE DAILY 11/04/2017 05/02/2018 Inactive Generic For:PROSCAR 5MG 11/04/2017 9:47:27 AM Aspirin Low Dose 81 mg tablet,delayed release RxNorm: 842494 1 Tablet(s) PO QHS 10/21/2017 10/15/2018 Active amlodipine 5 mg tablet RxNorm: 678547 TAKE ONE TABLET BY MOUTH DAILY 10/07/2017 01/04/2018 Inactive Generic For:NORVASC 5MG 10/07/2017 9:55:37 AM gabapentin 100 mg capsule RxNorm: 347985 TAKE 1 CAPSULE BY MOUTH THREE TIMES DAILY 10/07/2017 01/04/2018 Inactive Generic For:NEURONTIN 100MG 10/07/2017 9:55:26 AM Januvia 100 mg tablet RxNorm: 405697 TAKE 1 TABLET BY MOUTH ONCE DAILY 09/23/2017 01/19/2018 Inactive 09/23/2017 9:25:24 AM pravastatin 40 mg tablet RxNorm: 761855 TAKE ONE TABLET BY MOUTH EVERY NIGHT AT BEDTIME 09/19/2017 03/12/2018 Inactive Generic For:PRAVACHOL 40MG 09/19/2017 9:12:02 AM Protonix 40 mg tablet,delayed release RxNorm: 308316 TAKE 1 TABLET BY MOUTH EVERY MORNING 09/16/2017 12/15/2017 Inactive Generic For:PROTONIX 40MG 09/16/2017 9:50:22 AM amlodipine 5 mg tablet RxNorm: 611409 TAKE ONE TABLET BY MOUTH DAILY 09/09/2017 10/06/2017 Inactive Generic For:NORVASC 5MG 09/09/2017 9:16:37 AM gabapentin 100 mg capsule RxNorm: 385148 TAKE 1 CAPSULE BY MOUTH THREE TIMES DAILY 09/09/2017 10/06/2017 Inactive Generic For:NEURONTIN 100MG 09/09/2017 9:16:33 AM Vitamin D3 1,000 unit tablet RxNorm: 251999 1 Tablet(s) PO daily 09/04/2017 07/30/2018 Active Vitamin D3 1,000 unit tablet RxNorm: 903022 1 Tablet(s) PO daily 09/03/2017 09/03/2017 Inactive glimepiride 2 mg tablet RxNorm: 366995 TAKE 1 TABLET BY MOUTH ONCE DAILY 09/02/2017 01/26/2018 Inactive Generic For:AMARYL 2MG 09/02/2017 9:35:29 AM Vitamin B-12 1,000 mcg tablet RxNorm: 661598 TAKE 1 TABLET BY MOUTH ONCE DAILY 09/02/2017 01/26/2018 Inactive 09/02/2017 9:35:38 AM pravastatin 40 mg tablet RxNorm: 165052 1 Tablet(s) PO QHS 08/22/2017 08/21/2017 Inactive pravastatin 40 mg tablet RxNorm: 139280 1 Tablet(s) PO QHS 08/22/2017 09/18/2017 Inactive glimepiride 2 mg tablet RxNorm: 737936 1 Tablet(s) PO daily 07/24/2017 09/01/2017 Inactive hydrocodone 5 mg-acetaminophen 325 mg tablet RxNorm: 176236 1-2 Tablet(s) PO Q4H as needed for pain 07/23/2017 08/28/2017 Inactive Proscar 5 mg tablet RxNorm: 969037 1 Tablet(s) PO daily No Start Date 11/03/2017 Inactive Metamucil oral packet RxNorm: 1 packet PO daily No Start Date 07/23/2017 Inactive Vitamin B-12 1,000 mcg tablet RxNorm: 538332 1 Tablet(s) PO daily No Start Date 09/01/2017 Inactive tamsulosin 0.4 mg capsule RxNorm: 277643 1 Capsule(s) PO daily No Start Date 02/11/2018 Inactive Plavix 75 mg tablet RxNorm: 515547 1 Tablet(s) PO QHS No Start Date 02/11/2018 Inactive Alcohol Pads RxNorm: 812311 1 TOP UD No Start Date 01/06/2018 Inactive Vitamin D3 1,000 unit tablet RxNorm: 642060 1 Tablet(s) PO daily No Start Date 09/02/2017 Inactive gabapentin 100 mg capsule RxNorm: 108020 1 Capsule(s) PO TID No Start Date 09/08/2017 Inactive olanzapine 5 mg tablet RxNorm: 468580 1 Tablet(s) PO QHS No Start Date 07/22/2017 Inactive Lipitor 40 mg tablet RxNorm: 551858 1 Tablet(s) PO QHS No Start Date 08/21/2017 Inactive Januvia 100 mg tablet RxNorm: 391431 1 Tablet(s) PO QHS No Start Date 09/22/2017 Inactive folic acid 1 mg tablet RxNorm: 030775 1 Tablet(s) PO daily No Start Date 07/23/2017 Inactive hydrocodone 5 mg-acetaminophen 325 mg tablet RxNorm: 797151 1 Tablet(s) PO Q4H as needed for pain No Start Date 07/22/2017 Inactive Protonix 40 mg tablet,delayed release RxNorm: 290114 1 Tablet(s) PO daily No Start Date 09/15/2017 Inactive allopurinol 100 mg tablet RxNorm: 592998 1 Tablet(s) PO BID No Start Date 03/19/2018 Inactive amlodipine 5 mg tablet RxNorm: 546300 1 Tablet(s) PO daily No Start Date 09/08/2017 Inactive Aspirin Low Dose 81 mg tablet,delayed release RxNorm: 426114 1 Tablet(s) PO QHS No Start Date [...] Code Item Item Code Result Date %Hba1C Kvo358 % HbA1c 26759- 6 7.0 % 05/29/2018 %Hba1C Yee220 Gluc Ave 154 mg/dL 05/29/2018 Comp Metabolic Zca521 NA 139 mEq/L 05/29/2018 Comp Metabolic Smr875 K 4.1 mEq/L 05/29/2018 Comp Metabolic Bgd033 CL 109 mEq/L 05/29/2018 Comp Metabolic Oqa770 CO2 23.0 mEq/L 05/29/2018 Comp Metabolic Dko639 ANION GAP 11 05/29/2018 Comp Metabolic Jih178 GLUCOSE 164 mg/dL 05/29/2018 Comp Metabolic Yxl611 Creat 1.4 mg/dL 05/29/2018 Comp Metabolic Bor048 eGFR 50 ml/min/1.73m2 05/29/2018 Comp Metabolic Zzm348 BUN 30 mg/dL 05/29/2018 Comp Metabolic Ham626 B/C Ratio 21.0 Ratio 05/29/2018 Comp Metabolic Wcd009 CALCIUM 9.2 mg/dL 05/29/2018 Comp Metabolic Hhu465 ALK PHOS 55 U/L 05/29/2018 Comp Metabolic Slm852 AST(SGOT) 11 U/L 05/29/2018 Comp Metabolic Dcm811 ALT(SGPT) 15 U/L 05/29/2018 Comp Metabolic Two963 BILI T 0.8 mg/dL 05/29/2018 Comp Metabolic Edj224 ALBUMIN 4.0 g/dL 05/29/2018 Comp Metabolic Pfn283 TPRO 6.3 g/dL 05/29/2018 Comp Metabolic Rwy578 GLOB 2.4 g/dL 05/29/2018 Comp Metabolic Jyv104 A/G Ratio 1.7 Ratio 05/29/2018 Comp Metabolic Tgl175 Osmo 287 mOsmo 05/29/2018 Cbc With Differential [...] 31.1 pg 05/29/2018 Cbc With Differential Ord2 [place]% 8.9 % 05/29/2018 Cbc With Differential Ord2 [...] 1.90 K/ul 05/29/2018 Cbc With Differential Ord2 [place] ABS# 0.7 K/ul 05/29/2018 Cbc With Differential [...] 30.6 pg 11/29/2017 Cbc With Differential Ord2 [place]% 8.0 % 11/29/2017 Cbc With Differential Ord2 [...] 1.46 K/ul 11/29/2017 Cbc With Differential Ord2 [place] ABS# 0.6 K/ul 11/29/2017 Cbc With Differential Ord2 Eos ABS# 0.2 K/ul 11/29/2017 Cbc With Differential Ord2 Baso ABS# 0.0 K/ul 11/29/2017 Lipid Ord30 CHOL 115 mg/dL 11/29/2017 Lipid Ord30 HDL 40.0 mg/dl 11/29/2017 Lipid Ord30 TRIG 114 mg/dL 11/29/2017 Lipid Ord30 LDL 52 mg/dL 11/29/2017 Lipid Ord30 C/HDL 2.9 Ratio 11/29/2017 %Hba1C Qqt360 % HbA1c 94571- 6 6.5 % 11/29/2017 %Hba1C Wob285 Gluc Ave 140 mg/dL 11/29/2017 Comp Metabolic Obz105 NA 140 mEq/L 11/29/2017 Comp Metabolic Jwc599 K 3.6 mEq/L 11/29/2017 Comp Metabolic Hye798 CL 106 mEq/L 11/29/2017 Comp Metabolic Itf040 CO2 24.0 mEq/L 11/29/2017 Comp Metabolic Vkb720 ANION GAP 14 11/29/2017 Comp Metabolic Hco197 GLUCOSE 151 mg/dL 11/29/2017 Comp Metabolic Yfz311 Creat 1.2 mg/dL 11/29/2017 Comp Metabolic Jch185 eGFR 61 ml/min/1.73m2 11/29/2017 Comp Metabolic Yjo801 BUN 34 mg/dL 11/29/2017 Comp Metabolic Aqa365 B/C Ratio 28.3 Ratio 11/29/2017 Comp Metabolic Nph765 CALCIUM 8.9 mg/dL 11/29/2017 Comp Metabolic Gak336 ALK PHOS 69 U/L 11/29/2017 Comp Metabolic Oym669 AST(SGOT) 13 U/L 11/29/2017 Comp Metabolic Oid983 ALT(SGPT) 16 U/L 11/29/2017 Comp Metabolic Iwh086 BILI T 0.7 mg/dL 11/29/2017 Comp Metabolic Dkz246 ALBUMIN 3.5 g/dL 11/29/2017 Comp Metabolic Vne576 TPRO 5.7 g/dL 11/29/2017 Comp Metabolic Nxm029 GLOB 2.2 g/dL 11/29/2017 Comp Metabolic Urk536 A/G Ratio 1.6 Ratio 11/29/2017 Comp Metabolic Uru032 Osmo 290 mOsmo 11/29/2017 Review of Systems [...] 1: 112/68 Code: 8480-6 BMI: 33.4 Code: 23204-1 Heart Rate 1: 100 bpm Height: 5'7" [...] 1: 138/76 Code: 8480-6 BMI: 33.2 Code: 33150-1 Heart Rate 1: 83 bpm Height: 5'7" [...] data Encounters Encounter Performer Location Codes Date ([id number]) [id number] EST. PATIENT, LEVEL IV Diagnosis: Type 2 diabetes mellitus with hyperglycemia[ICD10: E11.65] Diagnosis: Essential (primary) hypertension[ICD10: I10] Diagnosis: Chronic kidney disease, stage 3 (moderate)[ICD10: N18.3] Diagnosis: Primary generalized (osteo)arthritis[ICD10: M15.0] Geneva Spaulding MD, [facility] CPT-4: 44629 05/29/2018 ([id number]) [id number] EST. PATIENT, LEVEL IV Diagnosis: Type 2 diabetes mellitus with hyperglycemia[ICD10: E11.65] Diagnosis: Essential (primary) hypertension[ICD10: I10] Diagnosis: Diarrhea, unspecified[ICD10: R19.7] Geneva Spaulding MD, [facility] CPT-4: 00374 02/27/2018 ([id number]) 89121 EST. PATIENT, LEVEL IV Diagnosis: Essential (primary) hypertension[ICD10: I10] Diagnosis: Type 2 diabetes mellitus with hyperglycemia[ICD10: E11.65] Diagnosis: Chronic kidney disease, stage 3 (moderate)[ICD10: N18.3] Diagnosis: Cervicalgia[ICD10: M54.2] Geneva Spaulding MD, [facility] CPT-4: 80655 11/28/2017 ([id number]) [id number] EST. PATIENT, LEVEL III Diagnosis: Essential (primary) hypertension[ICD10: I10] Diagnosis: Type 2 diabetes mellitus with hyperglycemia[ICD10: E11.65] Diagnosis: Foot drop, left foot[ICD10: M21.372] Geneva Spaulding MD, [facility] CPT-4: 44074 08/29/2017 OFFICE VISIT, NEW - LEVEL 4 Diagnosis: Essential (primary) hypertension[ICD10: I10] Diagnosis: Type 2 diabetes mellitus with hyperglycemia[ICD10: E11.65] Diagnosis: Chronic kidney disease, stage 3 (moderate)[ICD10: N18.3] Diagnosis: Muscle weakness (generalized)[ICD10: M62.81] Geneva Spaulding MD, [facility] CPT-4: 49486 07/23/2017 Plan of Care Planned Activity Notes [...] CKD-check labs 05/29/2018 Appointment: Geneva Case WPtel: [phone] [phone] (30 min) Complex 05/29/2018 Patient Education: Patient [...] change in blood pressure readings at home. Vhyojpre-bwkhglsetrur-vszji probiotics as directed 02/27/2018 Appointment: Geneva Case WPtel: [phone] [id number] (15 min) Moderate 02/27/2018 Patient Education: Patient [...] disease-check labs 11/28/2017 [facility]ment[phone] [place] (15 min) Moderate 11/28/2017 Patient [...] ambulation. 08/29/2017 Appointment: Geneva Case WPtel: [phone] [phone] [place] [address] (15 min) Moderate 08/29/2017 Patient Education: Patient [...] are starting to become less controlled. Generalized ffuemdiz-tvjkpnfii-duuijgqm PT- plan to move back to [place] when able 07/23/2017 Appointment: Geneva Case WPtel: [id number] [address] New Patient 07/23/2017 Patient Education: Patient Medication [...] are starting to become less controlled. Generalized ocigobge-jagggyurf-dcruikui PT-plan to move back to [place] when able SCHEDULE TYLENOL TWICE DAILY AND [...] change in blood pressure readings at home. Usvlrxlr-hklylfkygruj-aczyd probiotics as directed . Hypertension - well [...]
--- OUTSIDE RECORDS SUMMARY | 2018-08-21 10:25 | XMS REPORT | CCD ---
Author Author Geneva Case MD, [facility] Address [address] [place] [address] Phone Care Team Providers Care Mangle Feeder Name Role Phone PP Unavailable CCM Unavailable Summary Purpose Interface Exchange Insurance Providers Payer name Policy type / Coverage type Covered republican ID Effective Begin Date Effective End Date WPS Medicare Part B Medicare Part B [id number] Unknown [id number] Medicare Part B [id number] Unknown Family history Mother Diagnosis Age At Onset No Known Diseases N/A Father Diagnosis Age At Onset No Known Diseases N/A Social History Social History Element Codes Description Effective Dates Living arrangements Unknown Assisted Living [place] 11/28/2017 Marital status Unknown 07/23/2017 Employment Unknown [...] Start Date Stop Date Status Fill Instructions Tylenol 325 mg tablet RxNorm: 872364 TAKE 1 TABLET BY MOUTH TWICE DAILY 06/17/2018 06/11/2019 Active Generic For:TYLENOL 325MG 06/17/2018 12:45:03 PM diclofenac 1 % topical gel RxNorm: 249478 APPLY 2 GRAMS TOP TO HANDS FOUR TIMES DAILY BILATERALLY 06/10/2018 10/07/2018 Active diclofenac 1 % topical gel RxNorm: 506905 APPLY 2 GRAMS TOP TO HANDS FOUR TIMES DAILY BILATERALLY 06/10/2018 06/09/2018 Inactive Protonix 40 mg tablet,delayed release RxNorm: 748984 TAKE 1 TABLET BY MOUTH EVERY MORNING 06/09/2018 10/06/2018 Active Generic For:PROTONIX 40MG 06/09/2018 2:16:07 PM tamsulosin 0.4 mg capsule RxNorm: 495175 TAKE 1 CAPSULE BY MOUTH ONCE DAILY 06/04/2018 05/29/2019 Active Generic For:FLOMAX 0.4MG 06/03/2018 4:14:32 PM N O T I C E Last quantity doesn't match original quantity glimepiride 2 mg tablet RxNorm: 593763 TAKE 1 TABLET BY MOUTH ONCE DAILY 05/26/2018 04/20/2019 Active Generic For:AMARYL 2MG 05/26/2018 1:31:32 PM Floranex 100 million cell oral granules in packet RxNorm: 1 Tablet(s) PO daily 05/23/2018 09/19/2018 Active Floranex 100 million cell oral granules in packet RxNorm: 1 Tablet(s) PO daily 05/23/2018 05/22/2018 Inactive Proscar 5 mg tablet RxNorm: 260091 TAKE 1 TABLET BY MOUTH ONCE DAILY 05/05/2018 10/31/2018 Active Generic For:PROSCAR 5MG 05/05/2018 9:23:48 AM gabapentin 100 mg capsule RxNorm: 530731 TAKE 1 CAPSULE BY MOUTH THREE TIMES DAILY 04/07/2018 09/03/2018 Active Generic For:NEURONTIN 100MG 04/07/2018 10:37:42 AM allopurinol 100 mg tablet RxNorm: 850893 TAKE 1 TABLET BY MOUTH TWICE DAILY 03/20/2018 09/15/2018 Active 03/19/2018 9:53:25 AM pravastatin 40 mg tablet RxNorm: 218082 TAKE ONE TABLET BY MOUTH EVERY NIGHT AT BEDTIME 03/13/2018 09/08/2018 Active Generic For:PRAVACHOL 40MG 03/13/2018 9:02:23 AM N O T I C E Last quantity doesn't match original quantity Protonix 40 mg tablet,delayed release RxNorm: 910775 TAKE 1 TABLET BY MOUTH EVERY MORNING 03/13/2018 06/08/2018 Inactive Generic For:PROTONIX 40MG 03/13/2018 9:02:28 AM N O T I C E Last quantity doesn't match original quantity Plavix 75 mg tablet RxNorm: 361980 TAKE 1 TABLET BY MOUTH ONCE DAILY 03/10/2018 10/05/2018 Active Generic For:*PLAVIX 75MG 03/10/2018 10:12:55 AM tamsulosin 0.4 mg capsule RxNorm: 405894 TAKE 1 CAPSULE BY MOUTH ONCE DAILY 03/10/2018 06/03/2018 Inactive Generic For:FLOMAX 0.4MG 03/10/2018 10:12:59 AM Jardiance 10 mg tablet RxNorm: 9069022 1 Tablet(s) PO daily 02/20/2018 08/18/2018 Active Jardiance 10 mg tablet RxNorm: 9000358 1 Tablet(s) PO daily 02/20/2018 02/19/2018 Inactive Plavix 75 mg tablet RxNorm: 486168 1 Tablet(s) PO QHS 02/12/2018 03/09/2018 Inactive tamsulosin 0.4 mg capsule RxNorm: 561333 1 Capsule(s) PO daily 02/12/2018 03/09/2018 Inactive loperamide 2 mg tablet RxNorm: 610427 2 after 1st stool & 1 after each add/max 4 in 24 hours Tablet(s) PO 02/03/2018 06/02/2018 Inactive Tylenol 325 mg tablet RxNorm: 569584 1 Tablet(s) PO QHS and every 6 hours prn 02/03/2018 02/02/2018 Inactive Tylenol 325 mg tablet RxNorm: 542259 1 Tablet(s) PO QHS and every 6 hours prn 02/03/2018 06/02/2018 Inactive loperamide 2 mg tablet RxNorm: 151495 2 after 1st stool & 1 after each add/max 4 in 24 hours Tablet(s) PO 02/03/2018 02/02/2018 Inactive Vitamin B-12 1,000 mcg tablet RxNorm: 130836 TAKE 1 TABLET BY MOUTH ONCE DAILY 01/27/2018 12/22/2018 Active 01/27/2018 10:10:15 AM glimepiride 2 mg tablet RxNorm: 836405 TAKE 1 TABLET BY MOUTH ONCE DAILY 01/27/2018 05/25/2018 Inactive Generic For:AMARYL 2MG 01/27/2018 10:09:58 AM Januvia 100 mg tablet RxNorm: 716798 TAKE 1 TABLET BY MOUTH ONCE DAILY 01/20/2018 02/19/2018 Inactive 01/20/2018 9:58:08 AM Alcohol Pads RxNorm: 576949 1 [facility] 01/07/2018 No Stop Date Active amlodipine 5 mg tablet RxNorm: 126214 TAKE ONE TABLET BY MOUTH DAILY 01/06/2018 07/04/2018 Active Generic For:NORVASC 5MG 01/06/2018 10:33:58 AM N O T I C E Last quantity doesn't match original quantity gabapentin 100 mg capsule RxNorm: 133621 TAKE 1 CAPSULE BY MOUTH THREE TIMES DAILY 01/06/2018 04/06/2018 Inactive Generic For:NEURONTIN 100MG 01/06/2018 10:33:55 AM N O T I C E Last quantity doesn't match original quantity Protonix 40 mg tablet,delayed release RxNorm: 990128 TAKE 1 TABLET BY MOUTH EVERY MORNING 12/16/2017 03/12/2018 Inactive Generic For:PROTONIX 40MG Proscar 5 mg tablet RxNorm: 101093 TAKE 1 TABLET BY MOUTH ONCE DAILY 11/04/2017 05/02/2018 Inactive Generic For:PROSCAR 5MG 11/04/2017 9:47:27 AM Aspirin Low Dose 81 mg tablet,delayed release RxNorm: 458492 1 Tablet(s) PO QHS 10/21/2017 10/15/2018 Active amlodipine 5 mg tablet RxNorm: 195318 TAKE ONE TABLET BY MOUTH DAILY 10/07/2017 01/04/2018 Inactive Generic For:NORVASC 5MG 10/07/2017 9:55:37 AM gabapentin 100 mg capsule RxNorm: 761598 TAKE 1 CAPSULE BY MOUTH THREE TIMES DAILY 10/07/2017 01/04/2018 Inactive Generic For:NEURONTIN 100MG 10/07/2017 9:55:26 AM Januvia 100 mg tablet RxNorm: 779833 TAKE 1 TABLET BY MOUTH ONCE DAILY 09/23/2017 01/19/2018 Inactive 09/23/2017 9:25:24 AM pravastatin 40 mg tablet RxNorm: 906327 TAKE ONE TABLET BY MOUTH EVERY NIGHT AT BEDTIME 09/19/2017 03/12/2018 Inactive Generic For:PRAVACHOL 40MG 09/19/2017 9:12:02 AM Protonix 40 mg tablet,delayed release RxNorm: 624803 TAKE 1 TABLET BY MOUTH EVERY MORNING 09/16/2017 12/15/2017 Inactive Generic For:PROTONIX 40MG 09/16/2017 9:50:22 AM amlodipine 5 mg tablet RxNorm: 575689 TAKE ONE TABLET BY MOUTH DAILY 09/09/2017 10/06/2017 Inactive Generic For:NORVASC 5MG 09/09/2017 9:16:37 AM gabapentin 100 mg capsule RxNorm: 431319 TAKE 1 CAPSULE BY MOUTH THREE TIMES DAILY 09/09/2017 10/06/2017 Inactive Generic For:NEURONTIN 100MG 09/09/2017 9:16:33 AM Vitamin D3 1,000 unit tablet RxNorm: 765599 1 Tablet(s) PO daily 09/04/2017 07/30/2018 Active Vitamin D3 1,000 unit tablet RxNorm: 010491 1 Tablet(s) PO daily 09/03/2017 09/03/2017 Inactive glimepiride 2 mg tablet RxNorm: 042903 TAKE 1 TABLET BY MOUTH ONCE DAILY 09/02/2017 01/26/2018 Inactive Generic For:AMARYL 2MG 09/02/2017 9:35:29 AM Vitamin B-12 1,000 mcg tablet RxNorm: 550453 TAKE 1 TABLET BY MOUTH ONCE DAILY 09/02/2017 01/26/2018 Inactive 09/02/2017 9:35:38 AM pravastatin 40 mg tablet RxNorm: 504316 1 Tablet(s) PO QHS 08/22/2017 08/21/2017 Inactive pravastatin 40 mg tablet RxNorm: 379274 1 Tablet(s) PO QHS 08/22/2017 09/18/2017 Inactive glimepiride 2 mg tablet RxNorm: 160289 1 Tablet(s) PO daily 07/24/2017 09/01/2017 Inactive hydrocodone 5 mg-acetaminophen 325 mg tablet RxNorm: 651727 1-2 Tablet(s) PO Q4H as needed for pain 07/23/2017 08/28/2017 Inactive Proscar 5 mg tablet RxNorm: 182619 1 Tablet(s) PO daily No Start Date 11/03/2017 Inactive Metamucil oral packet RxNorm: 1 packet PO daily No Start Date 07/23/2017 Inactive Vitamin B-12 1,000 mcg tablet RxNorm: 183986 1 Tablet(s) PO daily No Start Date 09/01/2017 Inactive tamsulosin 0.4 mg capsule RxNorm: 564160 1 Capsule(s) PO daily No Start Date 02/11/2018 Inactive Plavix 75 mg tablet RxNorm: 365588 1 Tablet(s) PO QHS No Start Date 02/11/2018 Inactive Alcohol Pads RxNorm: 180848 1 TOP UD No Start Date 01/06/2018 Inactive Vitamin D3 1,000 unit tablet RxNorm: 392802 1 Tablet(s) PO daily No Start Date 09/02/2017 Inactive gabapentin 100 mg capsule RxNorm: 438713 1 Capsule(s) PO TID No Start Date 09/08/2017 Inactive olanzapine 5 mg tablet RxNorm: 353717 1 Tablet(s) PO QHS No Start Date 07/22/2017 Inactive Lipitor 40 mg tablet RxNorm: 317871 1 Tablet(s) PO QHS No Start Date 08/21/2017 Inactive Januvia 100 mg tablet RxNorm: 252348 1 Tablet(s) PO QHS No Start Date 09/22/2017 Inactive folic acid 1 mg tablet RxNorm: 730151 1 Tablet(s) PO daily No Start Date 07/23/2017 Inactive hydrocodone 5 mg-acetaminophen 325 mg tablet RxNorm: 918909 1 Tablet(s) PO Q4H as needed for pain No Start Date 07/22/2017 Inactive Protonix 40 mg tablet,delayed release RxNorm: 140880 1 Tablet(s) PO daily No Start Date 09/15/2017 Inactive allopurinol 100 mg tablet RxNorm: 531669 1 Tablet(s) PO BID No Start Date 03/19/2018 Inactive amlodipine 5 mg tablet RxNorm: 237549 1 Tablet(s) PO daily No Start Date 09/08/2017 Inactive Aspirin Low Dose 81 mg tablet,delayed release RxNorm: 249546 1 Tablet(s) PO QHS No Start Date [...] Code Item Item Code Result Date %Hba1C Sbu149 % HbA1c 88361- 6 7.0 % 05/29/2018 %Hba1C Cwr804 Gluc Ave 154 mg/dL 05/29/2018 Comp Metabolic Ppz847 NA 139 mEq/L 05/29/2018 Comp Metabolic Ytn923 K 4.1 mEq/L 05/29/2018 Comp Metabolic Amv659 CL 109 mEq/L 05/29/2018 Comp Metabolic Aiu830 CO2 23.0 mEq/L 05/29/2018 Comp Metabolic Ihd789 ANION GAP 11 05/29/2018 Comp Metabolic Ahi270 GLUCOSE 164 mg/dL 05/29/2018 Comp Metabolic Pgq110 Creat 1.4 mg/dL 05/29/2018 Comp Metabolic Imb617 eGFR 50 ml/min/1.73m2 05/29/2018 Comp Metabolic Dhw906 BUN 30 mg/dL 05/29/2018 Comp Metabolic Sgh443 B/C Ratio 21.0 Ratio 05/29/2018 Comp Metabolic Ghk666 CALCIUM 9.2 mg/dL 05/29/2018 Comp Metabolic Hbr365 ALK PHOS 55 U/L 05/29/2018 Comp Metabolic Tkv577 AST(SGOT) 11 U/L 05/29/2018 Comp Metabolic Odh093 ALT(SGPT) 15 U/L 05/29/2018 Comp Metabolic Shn798 BILI T 0.8 mg/dL 05/29/2018 Comp Metabolic Rxg162 ALBUMIN 4.0 g/dL 05/29/2018 Comp Metabolic Zuc447 TPRO 6.3 g/dL 05/29/2018 Comp Metabolic Eoa423 GLOB 2.4 g/dL 05/29/2018 Comp Metabolic Xai596 A/G Ratio 1.7 Ratio 05/29/2018 Comp Metabolic Iqn362 Osmo 287 mOsmo 05/29/2018 Cbc With Differential [...] 31.1 pg 05/29/2018 Cbc With Differential Ord2 Bland% 8.9 % 05/29/2018 Cbc With Differential Ord2 [...] 1.90 K/ul 05/29/2018 Cbc With Differential Ord2 Bland ABS# 0.7 K/ul 05/29/2018 Cbc With Differential [...] 30.6 pg 11/29/2017 Cbc With Differential Ord2 Bland% 8.0 % 11/29/2017 Cbc With Differential Ord2 [...] 1.46 K/ul 11/29/2017 Cbc With Differential Ord2 Bland ABS# 0.6 K/ul 11/29/2017 Cbc With Differential Ord2 Eos ABS# 0.2 K/ul 11/29/2017 Cbc With Differential Ord2 Baso ABS# 0.0 K/ul 11/29/2017 Lipid Ord30 CHOL 115 mg/dL 11/29/2017 Lipid Ord30 HDL 40.0 mg/dl 11/29/2017 Lipid Ord30 TRIG 114 mg/dL 11/29/2017 Lipid Ord30 LDL 52 mg/dL 11/29/2017 Lipid Ord30 C/HDL 2.9 Ratio 11/29/2017 %Hba1C Iqp588 % HbA1c 47281- 6 6.5 % 11/29/2017 %Hba1C Zyj742 Gluc Ave 140 mg/dL 11/29/2017 Comp Metabolic Iko634 NA 140 mEq/L 11/29/2017 Comp Metabolic Ayt422 K 3.6 mEq/L 11/29/2017 Comp Metabolic Ozh176 CL 106 mEq/L 11/29/2017 Comp Metabolic Rxm391 CO2 24.0 mEq/L 11/29/2017 Comp Metabolic Din052 ANION GAP 14 11/29/2017 Comp Metabolic Dtj546 GLUCOSE 151 mg/dL 11/29/2017 Comp Metabolic Ifn638 Creat 1.2 mg/dL 11/29/2017 Comp Metabolic Iwm355 eGFR 61 ml/min/1.73m2 11/29/2017 Comp Metabolic Jhe201 BUN 34 mg/dL 11/29/2017 Comp Metabolic Saq537 B/C Ratio 28.3 Ratio 11/29/2017 Comp Metabolic Usa220 CALCIUM 8.9 mg/dL 11/29/2017 Comp Metabolic Vuc533 ALK PHOS 69 U/L 11/29/2017 Comp Metabolic Jei984 AST(SGOT) 13 U/L 11/29/2017 Comp Metabolic Cno285 ALT(SGPT) 16 U/L 11/29/2017 Comp Metabolic Bkf268 BILI T 0.7 mg/dL 11/29/2017 Comp Metabolic Cyi815 ALBUMIN 3.5 g/dL 11/29/2017 Comp Metabolic Qvx935 TPRO 5.7 g/dL 11/29/2017 Comp Metabolic Afo533 GLOB 2.2 g/dL 11/29/2017 Comp Metabolic Bpi757 A/G Ratio 1.6 Ratio 11/29/2017 Comp Metabolic Jpg777 Osmo 290 mOsmo 11/29/2017 Review of Systems [...] accomodation 05/29/2018 None Full Exam - General 1995 Ears/Nose/Throat otoscopic exam Overall: external auditory canals [...] 1: 112/68 Code: 8480-6 BMI: 33.4 Code: 57467-0 Heart Rate 1: 100 bpm Height: 5'7" [...] 1: 138/76 Code: 8480-6 BMI: 33.2 Code: 62358-3 Heart Rate 1: 83 bpm Height: 5'7" [...] data Encounters Encounter Performer Location Codes Date ([id number]) 15204 EST. PATIENT, LEVEL IV Diagnosis: Type 2 diabetes mellitus with hyperglycemia[ICD10: E11.65] Diagnosis: Essential (primary) hypertension[ICD10: I10] Diagnosis: Chronic kidney disease, stage 3 (moderate)[ICD10: N18.3] Diagnosis: Primary generalized (osteo)arthritis[ICD10: M15.0] Geneva Spaulding MD, [facility] CPT-4: 93854 05/29/2018 ([id number]) 75670 EST. PATIENT, LEVEL IV Diagnosis: Type 2 diabetes mellitus with hyperglycemia[ICD10: E11.65] Diagnosis: Essential (primary) hypertension[ICD10: I10] Diagnosis: Diarrhea, unspecified[ICD10: R19.7] Geneva Spaulding MD, [facility] CPT-4: 64248 02/27/2018 ([id number]) 48037 EST. PATIENT, LEVEL IV Diagnosis: Essential (primary) hypertension[ICD10: I10] Diagnosis: Type 2 diabetes mellitus with hyperglycemia[ICD10: E11.65] Diagnosis: Chronic kidney disease, stage 3 (moderate)[ICD10: N18.3] Diagnosis: Cervicalgia[ICD10: M54.2] Geneva Spaulding MD, [facility] CPT-4: 32219 11/28/2017 ([id number]) 51999 EST. PATIENT, LEVEL III Diagnosis: Essential (primary) hypertension[ICD10: I10] Diagnosis: Type 2 diabetes mellitus with hyperglycemia[ICD10: E11.65] Diagnosis: Foot drop, left foot[ICD10: M21.372] Geneva Spaulding MD, [facility] CPT-4: 24432 08/29/2017 OFFICE VISIT, NEW - LEVEL 4 Diagnosis: Essential (primary) hypertension[ICD10: I10] Diagnosis: Type 2 diabetes mellitus with hyperglycemia[ICD10: E11.65] Diagnosis: Chronic kidney disease, stage 3 (moderate)[ICD10: N18.3] Diagnosis: Muscle weakness (generalized)[ICD10: M62.81] Geneva Spaulding MD, [facility] CPT-4: 75415 07/23/2017 Plan of Care Planned Activity Notes [...] CKD-check labs 05/29/2018 Appointment: Geneva Case WPtel: [facility] [place] [phone] [place] [address] (30 min) Complex 05/29/2018 Patient Education: Patient [...] change in blood pressure readings at home. Pwkmtcai-pmkorzdksyib-bvaon probiotics as directed 02/27/2018 Appointment: Geneva Case WPtel: [facility] [phone] (15 min) Moderate 02/27/2018 Patient Education: [...] labs 11/28/2017 Appointment: Geneva Case WPtel: [phone] [phone] [place] (15 min) Moderate 11/28/2017 Patient [...] safer ambulation. 08/29/2017 Appointment: Geneva Case WPtel: [address] [place], [place] [phone] [place] (15 min) Moderate 08/29/2017 Patient Education: Patient [...] are starting to become less controlled. Generalized mzcrloul-pbzgbgprx-bjlzsrjv PT- plan to move back to [place] when able 07/23/2017 [facility] [phone] [phone] [facility] Patient 07/23/2017 Patient Education: Patient Medication [...] are starting to become less controlled. Generalized jiljnrvn-brziohlzq-leouimyf PT-plan to move back to [place] when able SCHEDULE TYLENOL TWICE DAILY AND [...] change in blood pressure readings at home. Resholxm-rmajoapatgev-dfeex probiotics as directed . Hypertension - well [...]
--- OUTSIDE RECORDS SUMMARY | 2018-08-21 10:26 | XMS REPORT | CCD ---
Author Author Geneva Case MD, [facility] Address [address] [place] [address] Phone Care Team Providers Care Monotypist Name Role Phone PP Unavailable CCM Unavailable Summary Purpose Interface Exchange Insurance Providers Payer name Policy type / Coverage type Covered republican ID Effective Begin Date Effective End Date WPS Medicare Part B Medicare Part B [id number] Unknown SpotRight Medicare Part B [id number] Unknown Family history Mother Diagnosis Age At Onset No Known Diseases N/A Father Diagnosis Age At Onset No Known Diseases N/A Social History Social History Element Codes Description Effective Dates Living arrangements Unknown Assisted Living [place] 11/28/2017 Marital status Unknown 07/23/2017 Employment Unknown [...] Start Date Stop Date Status Fill Instructions diclofenac 1 % topical gel RxNorm: 950176 APPLY 2 GRAMS TOP TO HANDS FOUR TIMES DAILY BILATERALLY 06/10/2018 10/07/2018 Active diclofenac 1 % topical gel RxNorm: 800471 APPLY 2 GRAMS TOP TO HANDS FOUR TIMES DAILY BILATERALLY 06/10/2018 06/09/2018 Inactive Protonix 40 mg tablet,delayed release RxNorm: 551498 TAKE 1 TABLET BY MOUTH EVERY MORNING 06/09/2018 10/06/2018 Active Generic For:PROTONIX 40MG 06/09/2018 2:16:07 PM tamsulosin 0.4 mg capsule RxNorm: 461785 TAKE 1 CAPSULE BY MOUTH ONCE DAILY 06/04/2018 05/29/2019 Active Generic For:FLOMAX 0.4MG 06/03/2018 4:14:32 PM N O T I C E Last quantity doesn't match original quantity glimepiride 2 mg tablet RxNorm: 391826 TAKE 1 TABLET BY MOUTH ONCE DAILY 05/26/2018 04/20/2019 Active Generic For:AMARYL 2MG 05/26/2018 1:31:32 PM Floranex 100 million cell oral granules in packet RxNorm: 1 Tablet(s) PO daily 05/23/2018 09/19/2018 Active Floranex 100 million cell oral granules in packet RxNorm: 1 Tablet(s) PO daily 05/23/2018 05/22/2018 Inactive Proscar 5 mg tablet RxNorm: 231563 TAKE 1 TABLET BY MOUTH ONCE DAILY 05/05/2018 10/31/2018 Active Generic For:PROSCAR 5MG 05/05/2018 9:23:48 AM gabapentin 100 mg capsule RxNorm: 212529 TAKE 1 CAPSULE BY MOUTH THREE TIMES DAILY 04/07/2018 09/03/2018 Active Generic For:NEURONTIN 100MG 04/07/2018 10:37:42 AM allopurinol 100 mg tablet RxNorm: 047185 TAKE 1 TABLET BY MOUTH TWICE DAILY 03/20/2018 09/15/2018 Active 03/19/2018 9:53:25 AM pravastatin 40 mg tablet RxNorm: 154957 TAKE ONE TABLET BY MOUTH EVERY NIGHT AT BEDTIME 03/13/2018 09/08/2018 Active Generic For:PRAVACHOL 40MG 03/13/2018 9:02:23 AM N O T I C E Last quantity doesn't match original quantity Protonix 40 mg tablet,delayed release RxNorm: 033308 TAKE 1 TABLET BY MOUTH EVERY MORNING 03/13/2018 06/08/2018 Inactive Generic For:PROTONIX 40MG 03/13/2018 9:02:28 AM N O T I C E Last quantity doesn't match original quantity Plavix 75 mg tablet RxNorm: 616795 TAKE 1 TABLET BY MOUTH ONCE DAILY 03/10/2018 10/05/2018 Active Generic For:*PLAVIX 75MG 03/10/2018 10:12:55 AM tamsulosin 0.4 mg capsule RxNorm: 300007 TAKE 1 CAPSULE BY MOUTH ONCE DAILY 03/10/2018 06/03/2018 Inactive Generic For:FLOMAX 0.4MG 03/10/2018 10:12:59 AM Jardiance 10 mg tablet RxNorm: 7881629 1 Tablet(s) PO daily 02/20/2018 08/18/2018 Active Jardiance 10 mg tablet RxNorm: 0411334 1 Tablet(s) PO daily 02/20/2018 02/19/2018 Inactive Plavix 75 mg tablet RxNorm: 538320 1 Tablet(s) PO QHS 02/12/2018 03/09/2018 Inactive tamsulosin 0.4 mg capsule RxNorm: 044991 1 Capsule(s) PO daily 02/12/2018 03/09/2018 Inactive Tylenol 325 mg tablet RxNorm: 480099 1 Tablet(s) PO QHS and every 6 hours prn 02/03/2018 06/02/2018 Inactive loperamide 2 mg tablet RxNorm: 142786 2 after 1st stool & 1 after each add/max 4 in 24 hours Tablet(s) PO 02/03/2018 06/02/2018 Inactive Tylenol 325 mg tablet RxNorm: 336099 1 Tablet(s) PO QHS and every 6 hours prn 02/03/2018 02/02/2018 Inactive loperamide 2 mg tablet RxNorm: 059299 2 after 1st stool & 1 after each add/max 4 in 24 hours Tablet(s) PO 02/03/2018 02/02/2018 Inactive Vitamin B-12 1,000 mcg tablet RxNorm: 868331 TAKE 1 TABLET BY MOUTH ONCE DAILY 01/27/2018 12/22/2018 Active 01/27/2018 10:10:15 AM glimepiride 2 mg tablet RxNorm: 526559 TAKE 1 TABLET BY MOUTH ONCE DAILY 01/27/2018 05/25/2018 Inactive Generic For:AMARYL 2MG 01/27/2018 10:09:58 AM Januvia 100 mg tablet RxNorm: 537207 TAKE 1 TABLET BY MOUTH ONCE DAILY 01/20/2018 02/19/2018 Inactive 01/20/2018 9:58:08 AM Alcohol Pads RxNorm: 098604 1 [facility] 01/07/2018 No Stop Date Active amlodipine 5 mg tablet RxNorm: 879042 TAKE ONE TABLET BY MOUTH DAILY 01/06/2018 07/04/2018 Active Generic For:NORVASC 5MG 01/06/2018 10:33:58 AM N O T I C E Last quantity doesn't match original quantity gabapentin 100 mg capsule RxNorm: 094476 TAKE 1 CAPSULE BY MOUTH THREE TIMES DAILY 01/06/2018 04/06/2018 Inactive Generic For:NEURONTIN 100MG 01/06/2018 10:33:55 AM N O T I C E Last quantity doesn't match original quantity Protonix 40 mg tablet,delayed release RxNorm: 856042 TAKE 1 TABLET BY MOUTH EVERY MORNING 12/16/2017 03/12/2018 Inactive Generic For:PROTONIX 40MG Proscar 5 mg tablet RxNorm: 326105 TAKE 1 TABLET BY MOUTH ONCE DAILY 11/04/2017 05/02/2018 Inactive Generic For:PROSCAR 5MG 11/04/2017 9:47:27 AM Aspirin Low Dose 81 mg tablet,delayed release RxNorm: 805910 1 Tablet(s) PO QHS 10/21/2017 10/15/2018 Active amlodipine 5 mg tablet RxNorm: 137248 TAKE ONE TABLET BY MOUTH DAILY 10/07/2017 01/04/2018 Inactive Generic For:NORVASC 5MG 10/07/2017 9:55:37 AM gabapentin 100 mg capsule RxNorm: 585813 TAKE 1 CAPSULE BY MOUTH THREE TIMES DAILY 10/07/2017 01/04/2018 Inactive Generic For:NEURONTIN 100MG 10/07/2017 9:55:26 AM Januvia 100 mg tablet RxNorm: 533535 TAKE 1 TABLET BY MOUTH ONCE DAILY 09/23/2017 01/19/2018 Inactive 09/23/2017 9:25:24 AM pravastatin 40 mg tablet RxNorm: 848555 TAKE ONE TABLET BY MOUTH EVERY NIGHT AT BEDTIME 09/19/2017 03/12/2018 Inactive Generic For:PRAVACHOL 40MG 09/19/2017 9:12:02 AM Protonix 40 mg tablet,delayed release RxNorm: 091559 TAKE 1 TABLET BY MOUTH EVERY MORNING 09/16/2017 12/15/2017 Inactive Generic For:PROTONIX 40MG 09/16/2017 9:50:22 AM amlodipine 5 mg tablet RxNorm: 399088 TAKE ONE TABLET BY MOUTH DAILY 09/09/2017 10/06/2017 Inactive Generic For:NORVASC 5MG 09/09/2017 9:16:37 AM gabapentin 100 mg capsule RxNorm: 224786 TAKE 1 CAPSULE BY MOUTH THREE TIMES DAILY 09/09/2017 10/06/2017 Inactive Generic For:NEURONTIN 100MG 09/09/2017 9:16:33 AM Vitamin D3 1,000 unit tablet RxNorm: 314404 1 Tablet(s) PO daily 09/04/2017 07/30/2018 Active Vitamin D3 1,000 unit tablet RxNorm: 427861 1 Tablet(s) PO daily 09/03/2017 09/03/2017 Inactive glimepiride 2 mg tablet RxNorm: 748772 TAKE 1 TABLET BY MOUTH ONCE DAILY 09/02/2017 01/26/2018 Inactive Generic For:AMARYL 2MG 09/02/2017 9:35:29 AM Vitamin B-12 1,000 mcg tablet RxNorm: 388502 TAKE 1 TABLET BY MOUTH ONCE DAILY 09/02/2017 01/26/2018 Inactive 09/02/2017 9:35:38 AM pravastatin 40 mg tablet RxNorm: 789311 1 Tablet(s) PO QHS 08/22/2017 08/21/2017 Inactive pravastatin 40 mg tablet RxNorm: 115108 1 Tablet(s) PO QHS 08/22/2017 09/18/2017 Inactive glimepiride 2 mg tablet RxNorm: 742180 1 Tablet(s) PO daily 07/24/2017 09/01/2017 Inactive hydrocodone 5 mg-acetaminophen 325 mg tablet RxNorm: 368452 1-2 Tablet(s) PO Q4H as needed for pain 07/23/2017 08/28/2017 Inactive Proscar 5 mg tablet RxNorm: 699684 1 Tablet(s) PO daily No Start Date 11/03/2017 Inactive Metamucil oral packet RxNorm: 1 packet PO daily No Start Date 07/23/2017 Inactive Vitamin B-12 1,000 mcg tablet RxNorm: 805264 1 Tablet(s) PO daily No Start Date 09/01/2017 Inactive tamsulosin 0.4 mg capsule RxNorm: 432811 1 Capsule(s) PO daily No Start Date 02/11/2018 Inactive Plavix 75 mg tablet RxNorm: 897068 1 Tablet(s) PO QHS No Start Date 02/11/2018 Inactive Alcohol Pads RxNorm: 166400 1 TOP UD No Start Date 01/06/2018 Inactive Vitamin D3 1,000 unit tablet RxNorm: 481980 1 Tablet(s) PO daily No Start Date 09/02/2017 Inactive gabapentin 100 mg capsule RxNorm: 386517 1 Capsule(s) PO TID No Start Date 09/08/2017 Inactive olanzapine 5 mg tablet RxNorm: 659188 1 Tablet(s) PO QHS No Start Date 07/22/2017 Inactive Lipitor 40 mg tablet RxNorm: 333202 1 Tablet(s) PO QHS No Start Date 08/21/2017 Inactive Januvia 100 mg tablet RxNorm: 620855 1 Tablet(s) PO QHS No Start Date 09/22/2017 Inactive folic acid 1 mg tablet RxNorm: 960184 1 Tablet(s) PO daily No Start Date 07/23/2017 Inactive hydrocodone 5 mg-acetaminophen 325 mg tablet RxNorm: 536286 1 Tablet(s) PO Q4H as needed for pain No Start Date 07/22/2017 Inactive Protonix 40 mg tablet,delayed release RxNorm: 559990 1 Tablet(s) PO daily No Start Date 09/15/2017 Inactive allopurinol 100 mg tablet RxNorm: 172769 1 Tablet(s) PO BID No Start Date 03/19/2018 Inactive amlodipine 5 mg tablet RxNorm: 315680 1 Tablet(s) PO daily No Start Date 09/08/2017 Inactive Aspirin Low Dose 81 mg tablet,delayed release RxNorm: 045639 1 Tablet(s) PO QHS No Start Date [...] Code Item Item Code Result Date %Hba1C Iki968 % HbA1c 18981- 6 7.0 % 05/29/2018 %Hba1C Fam361 Gluc Ave 154 mg/dL 05/29/2018 Comp Metabolic Iuh954 NA 139 mEq/L 05/29/2018 Comp Metabolic Jdg338 K 4.1 mEq/L 05/29/2018 Comp Metabolic Gtg904 CL 109 mEq/L 05/29/2018 Comp Metabolic Cwc702 CO2 23.0 mEq/L 05/29/2018 Comp Metabolic Xen918 ANION GAP 11 05/29/2018 Comp Metabolic Rlk990 GLUCOSE 164 mg/dL 05/29/2018 Comp Metabolic Lkw770 Creat 1.4 mg/dL 05/29/2018 Comp Metabolic Ppz002 eGFR 50 ml/min/1.73m2 05/29/2018 Comp Metabolic Zxq220 BUN 30 mg/dL 05/29/2018 Comp Metabolic Mpz049 B/C Ratio 21.0 Ratio 05/29/2018 Comp Metabolic Axu570 CALCIUM 9.2 mg/dL 05/29/2018 Comp Metabolic Div297 ALK PHOS 55 U/L 05/29/2018 Comp Metabolic Hfd785 AST(SGOT) 11 U/L 05/29/2018 Comp Metabolic Nfj534 ALT(SGPT) 15 U/L 05/29/2018 Comp Metabolic Cyj611 BILI T 0.8 mg/dL 05/29/2018 Comp Metabolic Vje665 ALBUMIN 4.0 g/dL 05/29/2018 Comp Metabolic Oyp989 TPRO 6.3 g/dL 05/29/2018 Comp Metabolic Ovg423 GLOB 2.4 g/dL 05/29/2018 Comp Metabolic Xhy707 A/G Ratio 1.7 Ratio 05/29/2018 Comp Metabolic Udq852 Osmo 287 mOsmo 05/29/2018 Cbc With Differential [...] 31.1 pg 05/29/2018 Cbc With Differential Ord2 [place]helps% 8.9 % 05/29/2018 Cbc With Differential Ord2 [...] 1.90 K/ul 05/29/2018 Cbc With Differential Ord2 [place] ABS# 0.7 K/ul 05/29/2018 Cbc With Differential [...] 30.6 pg 11/29/2017 Cbc With Differential Ord2 [place]% 8.0 % 11/29/2017 Cbc With Differential Ord2 [...] 1.46 K/ul 11/29/2017 Cbc With Differential Ord2 [place] ABS# 0.6 K/ul 11/29/2017 Cbc With Differential Ord2 Eos ABS# 0.2 K/ul 11/29/2017 Cbc With Differential Ord2 Baso ABS# 0.0 K/ul 11/29/2017 Lipid Ord30 CHOL 115 mg/dL 11/29/2017 Lipid Ord30 HDL 40.0 mg/dl 11/29/2017 Lipid Ord30 TRIG 114 mg/dL 11/29/2017 Lipid Ord30 LDL 52 mg/dL 11/29/2017 Lipid Ord30 C/HDL 2.9 Ratio 11/29/2017 %Hba1C Hdg067 % HbA1c 64367- 6 6.5 % 11/29/2017 %Hba1C Utv994 Gluc Ave 140 mg/dL 11/29/2017 Comp Metabolic Uau801 NA 140 mEq/L 11/29/2017 Comp Metabolic Sdl874 K 3.6 mEq/L 11/29/2017 Comp Metabolic Jlh303 CL 106 mEq/L 11/29/2017 Comp Metabolic Bdo634 CO2 24.0 mEq/L 11/29/2017 Comp Metabolic Qcr659 ANION GAP 14 11/29/2017 Comp Metabolic Lyl883 GLUCOSE 151 mg/dL 11/29/2017 Comp Metabolic Ned061 Creat 1.2 mg/dL 11/29/2017 Comp Metabolic Gdt250 eGFR 61 ml/min/1.73m2 11/29/2017 Comp Metabolic Mpk513 BUN 34 mg/dL 11/29/2017 Comp Metabolic Gkm754 B/C Ratio 28.3 Ratio 11/29/2017 Comp Metabolic Xjm129 CALCIUM 8.9 mg/dL 11/29/2017 Comp Metabolic Pqq604 ALK PHOS 69 U/L 11/29/2017 Comp Metabolic Gnx101 AST(SGOT) 13 U/L 11/29/2017 Comp Metabolic Wuz122 ALT(SGPT) 16 U/L 11/29/2017 Comp Metabolic Nlw426 BILI T 0.7 mg/dL 11/29/2017 Comp Metabolic Abh976 ALBUMIN 3.5 g/dL 11/29/2017 Comp Metabolic Qrf367 TPRO 5.7 g/dL 11/29/2017 Comp Metabolic Jiu733 GLOB 2.2 g/dL 11/29/2017 Comp Metabolic Dez977 A/G Ratio 1.6 Ratio 11/29/2017 Comp Metabolic Vky659 Osmo 290 mOsmo 11/29/2017 Review of Systems [...] None Full Exam - General 1995 Ears/Nose/Throat oral cavity/pharynx/larynx Overall: oral mucosa clear [...] 1: 112/68 Code: 8480-6 BMI: 33.4 Code: 22574-1 Heart Rate 1: 100 bpm Height: 5'7" [...] 1: 138/76 Code: 8480-6 BMI: 33.2 Code: 80442-0 Heart Rate 1: 83 bpm Height: 5'7" [...] data Encounters Encounter Performer Location Codes Date ([id number]) [id number] EST. PATIENT, LEVEL IV Diagnosis: Type 2 diabetes mellitus with hyperglycemia[ICD10: E11.65] Diagnosis: Essential (primary) hypertension[ICD10: I10] Diagnosis: Chronic kidney disease, stage 3 (moderate)[ICD10: N18.3] Diagnosis: Primary generalized (osteo)arthritis[ICD10: M15.0] [facility] CPT-4: 23679 05/29/2018 ([id number]) 33303 EST. PATIENT, LEVEL IV Diagnosis: Type 2 diabetes mellitus with hyperglycemia[ICD10: E11.65] Diagnosis: Essential (primary) hypertension[ICD10: I10] Diagnosis: Diarrhea, unspecified[ICD10: R19.7] [facility] CPT-4: 84761 02/27/2018 ([id number]) 01000 EST. PATIENT, LEVEL IV Diagnosis: Essential (primary) hypertension[ICD10: I10] Diagnosis: Type 2 diabetes mellitus with hyperglycemia[ICD10: E11.65] Diagnosis: Chronic kidney disease, stage 3 (moderate)[ICD10: N18.3] Diagnosis: Cervicalgia[ICD10: M54.2] Geneva Spaulding MD, [facility] CPT-4: 96670 11/28/2017 ([id number]) 52371 EST. PATIENT, LEVEL III Diagnosis: Essential (primary) hypertension[ICD10: I10] Diagnosis: Type 2 diabetes mellitus with hyperglycemia[ICD10: E11.65] Diagnosis: Foot drop, left foot[ICD10: M21.372] Geneva Spaulding MD, [facility] CPT-4: 14233 08/29/2017 OFFICE VISIT, NEW - LEVEL 4 Diagnosis: Essential (primary) hypertension[ICD10: I10] Diagnosis: Type 2 diabetes mellitus with hyperglycemia[ICD10: E11.65] Diagnosis: Chronic kidney disease, stage 3 (moderate)[ICD10: N18.3] Diagnosis: Muscle weakness (generalized)[ICD10: M62.81] Geneva Spaulding MD, [facility] CPT-4: 15260 07/23/2017 Plan of Care Planned Activity Notes [...] CKD-check labs 05/29/2018 Appointment: Geneva Case WPtel: [address] [place], [place] [phone] (30 min) Complex 05/29/2018 Patient Education: Patient [...] change in blood pressure readings at home. Lbwwjviz-dagpisyyopek-htynu probiotics as directed 02/27/2018 Appointment: Geneva Case WPtel: [phone] [phone] (15 min) Moderate 02/27/2018 Patient Education: Patient [...] labs 11/28/2017 Appointment: Geneva Case WPtel: [phone] [phone] (15 min) Moderate 11/28/2017 Patient Education: Patient [...] safer ambulation. 08/29/2017 Appointment: Geneva Case WPtel: [address] [place], [place] [phone] (15 min) Moderate 08/29/2017 Patient Education: Patient [...] are starting to become less controlled. Generalized edouzwbk-qdrhbfljs-dpdymkto PT- plan to move back to [place] when able 07/23/2017 [facility]ment[facility] [phone] [phone] New Patient 07/23/2017 Patient Education: Patient Medication [...] are starting to become less controlled. Generalized jrglxvit-zfezpqogg-lyaqwvqq PT-plan to move back to [place] when able SCHEDULE TYLENOL TWICE DAILY AND [...] change in blood pressure readings at home. Ptutrsnx-yxmrwqftshpe-ppciw probiotics as directed . Hypertension - well [...]
[2018-08-21 10:27] VITALS: BP 134/89
--- OUTSIDE RECORDS SUMMARY | 2018-08-21 10:27 | XMS REPORT | CCD ---
Author Author Geneva Case MD, [facility] Address [address] [place] [address] Phone Care Team Providers Care Crayon Painter Name Role Phone PP Unavailable CCM Unavailable Summary Purpose Interface Exchange Insurance Providers Payer name Policy type / Coverage type Covered democrat ID Effective Begin Date Effective End Date WPS Medicare Part B Medicare Part B [id number] Unknown [employer] Medicare Part B [id number] Unknown Family history Mother Diagnosis Age At Onset No Known Diseases N/A Father Diagnosis Age At Onset No Known Diseases N/A Social History Social History Element Codes Description Effective Dates Living arrangements Unknown Assisted Living [place] 11/28/2017 Marital status Unknown 07/23/2017 Employment [...] Start Date Stop Date Status Fill Instructions Protonix 40 mg tablet,delayed release RxNorm: 074127 TAKE 1 TABLET BY MOUTH EVERY MORNING 06/09/2018 10/06/2018 Active Generic For:PROTONIX 40MG 06/09/2018 2:16:07 PM tamsulosin 0.4 mg capsule RxNorm: 427169 TAKE 1 CAPSULE BY MOUTH ONCE DAILY 06/04/2018 05/29/2019 Active Generic For:FLOMAX 0.4MG 06/03/2018 4:14:32 PM N O T I C E Last quantity doesn't match original quantity glimepiride 2 mg tablet RxNorm: 921456 TAKE 1 TABLET BY MOUTH ONCE DAILY 05/26/2018 04/20/2019 Active Generic For:AMARYL 2MG 05/26/2018 1:31:32 PM Floranex 100 million cell oral granules in packet RxNorm: 1 Tablet(s) PO daily 05/23/2018 09/19/2018 Active Floranex 100 million cell oral granules in packet RxNorm: 1 Tablet(s) PO daily 05/23/2018 05/22/2018 Inactive Proscar 5 mg tablet RxNorm: 885683 TAKE 1 TABLET BY MOUTH ONCE DAILY 05/05/2018 10/31/2018 Active Generic For:PROSCAR 5MG 05/05/2018 9:23:48 AM gabapentin 100 mg capsule RxNorm: 125196 TAKE 1 CAPSULE BY MOUTH THREE TIMES DAILY 04/07/2018 09/03/2018 Active Generic For:NEURONTIN 100MG 04/07/2018 10:37:42 AM allopurinol 100 mg tablet RxNorm: 088177 TAKE 1 TABLET BY MOUTH TWICE DAILY 03/20/2018 09/15/2018 Active 03/19/2018 9:53:25 AM pravastatin 40 mg tablet RxNorm: 534649 TAKE ONE TABLET BY MOUTH EVERY NIGHT AT BEDTIME 03/13/2018 09/08/2018 Active Generic For:PRAVACHOL 40MG 03/13/2018 9:02:23 AM N O T I C E Last quantity doesn't match original quantity Protonix 40 mg tablet,delayed release RxNorm: 607973 TAKE 1 TABLET BY MOUTH EVERY MORNING 03/13/2018 06/08/2018 Inactive Generic For:PROTONIX 40MG 03/13/2018 9:02:28 AM N O T I C E Last quantity doesn't match original quantity Plavix 75 mg tablet RxNorm: 587645 TAKE 1 TABLET BY MOUTH ONCE DAILY 03/10/2018 10/05/2018 Active Generic For:*PLAVIX 75MG 03/10/2018 10:12:55 AM tamsulosin 0.4 mg capsule RxNorm: 519090 TAKE 1 CAPSULE BY MOUTH ONCE DAILY 03/10/2018 06/03/2018 Inactive Generic For:FLOMAX 0.4MG 03/10/2018 10:12:59 AM Jardiance 10 mg tablet RxNorm: 8281816 1 Tablet(s) PO daily 02/20/2018 08/18/2018 Active Jardiance 10 mg tablet RxNorm: 4276345 1 Tablet(s) PO daily 02/20/2018 02/19/2018 Inactive Plavix 75 mg tablet RxNorm: 833597 1 Tablet(s) PO QHS 02/12/2018 03/09/2018 Inactive tamsulosin 0.4 mg capsule RxNorm: 768957 1 Capsule(s) PO daily 02/12/2018 03/09/2018 Inactive Tylenol 325 mg tablet RxNorm: 051051 1 Tablet(s) PO QHS and every 6 hours prn 02/03/2018 06/02/2018 Inactive loperamide 2 mg tablet RxNorm: 561739 2 after 1st stool & 1 after each add/max 4 in 24 hours Tablet(s) PO 02/03/2018 06/02/2018 Inactive Tylenol 325 mg tablet RxNorm: 407466 1 Tablet(s) PO QHS and every 6 hours prn 02/03/2018 02/02/2018 Inactive loperamide 2 mg tablet RxNorm: 514444 2 after 1st stool & 1 after each add/max 4 in 24 hours Tablet(s) PO 02/03/2018 02/02/2018 Inactive Vitamin B-12 1,000 mcg tablet RxNorm: 952182 TAKE 1 TABLET BY MOUTH ONCE DAILY 01/27/2018 12/22/2018 Active 01/27/2018 10:10:15 AM glimepiride 2 mg tablet RxNorm: 800900 TAKE 1 TABLET BY MOUTH ONCE DAILY 01/27/2018 05/25/2018 Inactive Generic For:AMARYL 2MG 01/27/2018 10:09:58 AM Januvia 100 mg tablet RxNorm: 784664 TAKE 1 TABLET BY MOUTH ONCE DAILY 01/20/2018 02/19/2018 Inactive 01/20/2018 9:58:08 AM Alcohol Pads RxNorm: 663718 1 [facility] 01/07/2018 No Stop Date Active amlodipine 5 mg tablet RxNorm: 299329 TAKE ONE TABLET BY MOUTH DAILY 01/06/2018 07/04/2018 Active Generic For:NORVASC 5MG 01/06/2018 10:33:58 AM N O T I C E Last quantity doesn't match original quantity gabapentin 100 mg capsule RxNorm: 852435 TAKE 1 CAPSULE BY MOUTH THREE TIMES DAILY 01/06/2018 04/06/2018 Inactive Generic For:NEURONTIN 100MG 01/06/2018 10:33:55 AM N O T I C E Last quantity doesn't match original quantity Protonix 40 mg tablet,delayed release RxNorm: 782856 TAKE 1 TABLET BY MOUTH EVERY MORNING 12/16/2017 03/12/2018 Inactive Generic For:PROTONIX 40MG Proscar 5 mg tablet RxNorm: 115560 TAKE 1 TABLET BY MOUTH ONCE DAILY 11/04/2017 05/02/2018 Inactive Generic For:PROSCAR 5MG 11/04/2017 9:47:27 AM Aspirin Low Dose 81 mg tablet,delayed release RxNorm: 519170 1 Tablet(s) PO QHS 10/21/2017 10/15/2018 Active amlodipine 5 mg tablet RxNorm: 445932 TAKE ONE TABLET BY MOUTH DAILY 10/07/2017 01/04/2018 Inactive Generic For:NORVASC 5MG 10/07/2017 9:55:37 AM gabapentin 100 mg capsule RxNorm: 894435 TAKE 1 CAPSULE BY MOUTH THREE TIMES DAILY 10/07/2017 01/04/2018 Inactive Generic For:NEURONTIN 100MG 10/07/2017 9:55:26 AM Januvia 100 mg tablet RxNorm: 109497 TAKE 1 TABLET BY MOUTH ONCE DAILY 09/23/2017 01/19/2018 Inactive 09/23/2017 9:25:24 AM pravastatin 40 mg tablet RxNorm: 671777 TAKE ONE TABLET BY MOUTH EVERY NIGHT AT BEDTIME 09/19/2017 03/12/2018 Inactive Generic For:PRAVACHOL 40MG 09/19/2017 9:12:02 AM Protonix 40 mg tablet,delayed release RxNorm: 496916 TAKE 1 TABLET BY MOUTH EVERY MORNING 09/16/2017 12/15/2017 Inactive Generic For:PROTONIX 40MG 09/16/2017 9:50:22 AM amlodipine 5 mg tablet RxNorm: 259775 TAKE ONE TABLET BY MOUTH DAILY 09/09/2017 10/06/2017 Inactive Generic For:NORVASC 5MG 09/09/2017 9:16:37 AM gabapentin 100 mg capsule RxNorm: 060607 TAKE 1 CAPSULE BY MOUTH THREE TIMES DAILY 09/09/2017 10/06/2017 Inactive Generic For:NEURONTIN 100MG 09/09/2017 9:16:33 AM Vitamin D3 1,000 unit tablet RxNorm: 333650 1 Tablet(s) PO daily 09/04/2017 07/30/2018 Active Vitamin D3 1,000 unit tablet RxNorm: 154158 1 Tablet(s) PO daily 09/03/2017 09/03/2017 Inactive glimepiride 2 mg tablet RxNorm: 817113 TAKE 1 TABLET BY MOUTH ONCE DAILY 09/02/2017 01/26/2018 Inactive Generic For:AMARYL 2MG 09/02/2017 9:35:29 AM Vitamin B-12 1,000 mcg tablet RxNorm: 130520 TAKE 1 TABLET BY MOUTH ONCE DAILY 09/02/2017 01/26/2018 Inactive 09/02/2017 9:35:38 AM pravastatin 40 mg tablet RxNorm: 307534 1 Tablet(s) PO QHS 08/22/2017 08/21/2017 Inactive pravastatin 40 mg tablet RxNorm: 137343 1 Tablet(s) PO QHS 08/22/2017 09/18/2017 Inactive glimepiride 2 mg tablet RxNorm: 821862 1 Tablet(s) PO daily 07/24/2017 09/01/2017 Inactive hydrocodone 5 mg-acetaminophen 325 mg tablet RxNorm: 114086 1-2 Tablet(s) PO Q4H as needed for pain 07/23/2017 08/28/2017 Inactive Proscar 5 mg tablet RxNorm: 118938 1 Tablet(s) PO daily No Start Date 11/03/2017 Inactive Metamucil oral packet RxNorm: 1 packet PO daily No Start Date 07/23/2017 Inactive Vitamin B-12 1,000 mcg tablet RxNorm: 471738 1 Tablet(s) PO daily No Start Date 09/01/2017 Inactive tamsulosin 0.4 mg capsule RxNorm: 832208 1 Capsule(s) PO daily No Start Date 02/11/2018 Inactive Plavix 75 mg tablet RxNorm: 652842 1 Tablet(s) PO QHS No Start Date 02/11/2018 Inactive Alcohol Pads RxNorm: 968436 1 TOP No Start Date 01/06/2018 Inactive Vitamin D3 1,000 unit tablet RxNorm: 258063 1 Tablet(s) PO daily No Start Date 09/02/2017 Inactive gabapentin 100 mg capsule RxNorm: 321856 1 Capsule(s) PO TID No Start Date 09/08/2017 Inactive olanzapine 5 mg tablet RxNorm: 243679 1 Tablet(s) PO QHS No Start Date 07/22/2017 Inactive Lipitor 40 mg tablet RxNorm: 657939 1 Tablet(s) PO QHS No Start Date 08/21/2017 Inactive Januvia 100 mg tablet RxNorm: 465236 1 Tablet(s) PO QHS No Start Date 09/22/2017 Inactive folic acid 1 mg tablet RxNorm: 816828 1 Tablet(s) PO daily No Start Date 07/23/2017 Inactive hydrocodone 5 mg-acetaminophen 325 mg tablet RxNorm: 575604 1 Tablet(s) PO Q4H as needed for pain No Start Date 07/22/2017 Inactive Protonix 40 mg tablet,delayed release RxNorm: 125402 1 Tablet(s) PO daily No Start Date 09/15/2017 Inactive allopurinol 100 mg tablet RxNorm: 582966 1 Tablet(s) PO BID No Start Date 03/19/2018 Inactive amlodipine 5 mg tablet RxNorm: 011485 1 Tablet(s) PO daily No Start Date 09/08/2017 Inactive Aspirin Low Dose 81 mg tablet,delayed release RxNorm: 325935 1 Tablet(s) PO QHS No Start Date [...] Code Item Item Code Result Date %Hba1C Xsb791 % HbA1c 28402- 6 7.0 % 05/29/2018 %Hba1C Jxs695 Gluc Ave 154 mg/dL 05/29/2018 Comp Metabolic Cgp292 NA 139 mEq/L 05/29/2018 Comp Metabolic Lox931 K 4.1 mEq/L 05/29/2018 Comp Metabolic Qrn768 CL 109 mEq/L 05/29/2018 Comp Metabolic Qki191 CO2 23.0 mEq/L 05/29/2018 Comp Metabolic Edm815 ANION GAP 11 05/29/2018 Comp Metabolic Wev433 GLUCOSE 164 mg/dL 05/29/2018 Comp Metabolic Why465 Creat 1.4 mg/dL 05/29/2018 Comp Metabolic Cuh820 eGFR 50 ml/min/1.73m2 05/29/2018 Comp Metabolic Vef583 BUN 30 mg/dL 05/29/2018 Comp Metabolic Osa022 B/C Ratio 21.0 Ratio 05/29/2018 Comp Metabolic Epv961 CALCIUM 9.2 mg/dL 05/29/2018 Comp Metabolic Vlw214 ALK PHOS 55 U/L 05/29/2018 Comp Metabolic Pdq766 AST(SGOT) 11 U/L 05/29/2018 Comp Metabolic Lvz191 ALT(SGPT) 15 U/L 05/29/2018 Comp Metabolic Pnm583 BILI T 0.8 mg/dL 05/29/2018 Comp Metabolic Xsx082 ALBUMIN 4.0 g/dL 05/29/2018 Comp Metabolic Fpv901 TPRO 6.3 g/dL 05/29/2018 Comp Metabolic Jxx949 GLOB 2.4 g/dL 05/29/2018 Comp Metabolic Tjn291 A/G Ratio 1.7 Ratio 05/29/2018 Comp Metabolic Bpx905 Osmo 287 mOsmo 05/29/2018 Cbc With Differential [...] 31.1 pg 05/29/2018 Cbc With Differential Ord2 [place]% 8.9 % 05/29/2018 Cbc With Differential Ord2 [...] 1.90 K/ul 05/29/2018 Cbc With Differential Ord2 [place] ABS# 0.7 K/ul 05/29/2018 Cbc With Differential [...] 30.6 pg 11/29/2017 Cbc With Differential Ord2 [place]% 8.0 % 11/29/2017 Cbc With Differential Ord2 [...] 1.46 K/ul 11/29/2017 Cbc With Differential Ord2 [place] ABS# 0.6 K/ul 11/29/2017 Cbc With Differential Ord2 Eos ABS# 0.2 K/ul 11/29/2017 Cbc With Differential Ord2 Baso ABS# 0.0 K/ul 11/29/2017 Lipid Ord30 CHOL 115 mg/dL 11/29/2017 Lipid Ord30 HDL 40.0 mg/dl 11/29/2017 Lipid Ord30 TRIG 114 mg/dL 11/29/2017 Lipid Ord30 LDL 52 mg/dL 11/29/2017 Lipid Ord30 C/HDL 2.9 Ratio 11/29/2017 %Hba1C Vmu215 % HbA1c 13737- 6 6.5 % 11/29/2017 %Hba1C Oci963 Gluc Ave 140 mg/dL 11/29/2017 Comp Metabolic Feo757 NA 140 mEq/L 11/29/2017 Comp Metabolic Xfp618 K 3.6 mEq/L 11/29/2017 Comp Metabolic Zix288 CL 106 mEq/L 11/29/2017 Comp Metabolic Eoa367 CO2 24.0 mEq/L 11/29/2017 Comp Metabolic Gol497 ANION GAP 14 11/29/2017 Comp Metabolic Mnt829 GLUCOSE 151 mg/dL 11/29/2017 Comp Metabolic Zjo285 Creat 1.2 mg/dL 11/29/2017 Comp Metabolic Lup905 eGFR 61 ml/min/1.73m2 11/29/2017 Comp Metabolic Cru745 BUN 34 mg/dL 11/29/2017 Comp Metabolic Vlm760 B/C Ratio 28.3 Ratio 11/29/2017 Comp Metabolic Bot166 CALCIUM 8.9 mg/dL 11/29/2017 Comp Metabolic Lew208 ALK PHOS 69 U/L 11/29/2017 Comp Metabolic Sqw828 AST(SGOT) 13 U/L 11/29/2017 Comp Metabolic Eqc369 ALT(SGPT) 16 U/L 11/29/2017 Comp Metabolic Pya923 BILI T 0.7 mg/dL 11/29/2017 Comp Metabolic Ilx925 ALBUMIN 3.5 g/dL 11/29/2017 Comp Metabolic Jxx564 TPRO 5.7 g/dL 11/29/2017 Comp Metabolic Oqk829 GLOB 2.2 g/dL 11/29/2017 Comp Metabolic Chz006 A/G Ratio 1.6 Ratio 11/29/2017 Comp Metabolic Nvo123 Osmo 290 mOsmo 11/29/2017 Review of Systems [...] 1: 112/68 Code: 8480-6 BMI: 33.4 Code: 26739-3 Heart Rate 1: 100 bpm Height: 5'7" [...] 1: 138/76 Code: 8480-6 BMI: 33.2 Code: 16227-7 Heart Rate 1: 83 bpm Height: 5'7" [...] data Encounters Encounter Performer Location Codes Date ([id number]) [id number] EST. PATIENT, LEVEL IV Diagnosis: Type 2 diabetes mellitus with hyperglycemia[ICD10: E11.65] Diagnosis: Essential (primary) hypertension[ICD10: I10] Diagnosis: Chronic kidney disease, stage 3 (moderate)[ICD10: N18.3] Diagnosis: Primary generalized (osteo)arthritis[ICD10: M15.0] Geneva Spaulding MD, [facility] CPT-4: 62529 05/29/2018 [id number]) 69513 EST. PATIENT, LEVEL IV Diagnosis: Type 2 diabetes mellitus with hyperglycemia[ICD10: E11.65] Diagnosis: Essential (primary) hypertension[ICD10: I10] Diagnosis: Diarrhea, unspecified[ICD10: R19.7] Geneva Spaulding MD, [facility] CPT-4: 80036 02/27/2018 [id number]) 85314 EST. PATIENT, LEVEL IV Diagnosis: Essential (primary) hypertension[ICD10: I10] Diagnosis: Type 2 diabetes mellitus with hyperglycemia[ICD10: E11.65] Diagnosis: Chronic kidney disease, stage 3 (moderate)[ICD10: N18.3] Diagnosis: Cervicalgia[ICD10: M54.2] [facility] CPT-4: 29674 11/28/2017 [id number]) [id number] EST. PATIENT, LEVEL III Diagnosis: Essential (primary) hypertension[ICD10: I10] Diagnosis: Type 2 diabetes mellitus with hyperglycemia[ICD10: E11.65] Diagnosis: Foot drop, left foot[ICD10: M21.372] Geneva Spaulding MD, [facility] CPT-4: 96348 08/29/2017 OFFICE VISIT, NEW - LEVEL 4 Diagnosis: Essential (primary) hypertension[ICD10: I10] Diagnosis: Type 2 diabetes mellitus with hyperglycemia[ICD10: E11.65] Diagnosis: Chronic kidney disease, stage 3 (moderate)[ICD10: N18.3] Diagnosis: Muscle weakness (generalized)[ICD10: M62.81] Geneav Spaulding MD, [facility] CPT-4: 40634 07/23/2017 Plan of Care Planned Activity Notes [...] CKD-check labs 05/29/2018 Appointment: Geneva Case WPtel: [address] [place], [place] [phone] (30 min) [facility] 05/29/2018 Patient Education: Patient Medication Summary Completed [...] change in blood pressure readings at home. Jtqpdzfq-bytecxeywjys-vhunp probiotics as directed 02/27/2018 Appointment: Geneva Case WPtel: [phone] [phone] (15 min) Moderate 02/27/2018 Patient Education: Patient [...] disease-check labs 11/28/2017 Appointment: Geneva Case WPtel[facility] [phone] (15 min) Moderate 11/28/2017 Patient Education: Patient [...] safer ambulation. 08/29/2017 Appointment: Geneva Case WPtel: [address] [place], [place] [phone] (15 min) Moderate 08/29/2017 Patient Education: Patient [...] are starting to become less controlled. Generalized fvebnfuz-qtbctdrzk-rnivyqao PT- plan to move back to [place] when able 07/23/2017 Appointment: Geneva Case WPtel: [facility] [phone] New Patient 07/23/2017 Patient Education: Patient Medication [...] are starting to become less controlled. Generalized amntxssf-hibmwgenv-jpnvffbw PT-plan to move back to [place] when able SCHEDULE TYLENOL TWICE DAILY AND [...] change in blood pressure readings at home. Werojulx-ksnaerabwkvq-nehvd probiotics as directed . Hypertension - well [...]
--- OUTSIDE RECORDS SUMMARY | 2018-08-21 10:28 | XMS REPORT | CCD ---
Author Author Geneva Case MD, [facility] Address [address] [place] [address] Phone Care Team Providers Care Sales Force Administrator Name Role Phone PP Unavailable CCM Unavailable Summary Purpose Interface Exchange Insurance Providers Payer name Policy type / Coverage type Covered republican ID Effective Begin Date Effective End Date WPS Medicare Part B Medicare Part B [id number] Unknown BlockSpring Medicare Part B [id number] Unknown Family history Mother Diagnosis Age At Onset No Known Diseases N/A Father Diagnosis Age At Onset No Known Diseases N/A Social History Social History Element Codes Description Effective Dates Living arrangements Unknown Assisted Living [place] 11/28/2017 Marital status Unknown 07/23/2017 Employment Unknown [...] Start Date Stop Date Status Fill Instructions tamsulosin 0.4 mg capsule RxNorm: 640419 TAKE 1 CAPSULE BY MOUTH ONCE DAILY 06/04/2018 05/29/2019 Active Generic For:FLOMAX 0.4MG 06/03/2018 4:14:32 PM N O T I C E Last quantity doesn't match original quantity glimepiride 2 mg tablet RxNorm: 803310 TAKE 1 TABLET BY MOUTH ONCE DAILY 05/26/2018 04/20/2019 Active Generic For:AMARYL 2MG 05/26/2018 1:31:32 PM Floranex 100 million cell oral granules in packet RxNorm: 1 Tablet(s) PO daily 05/23/2018 09/19/2018 Active Floranex 100 million cell oral granules in packet RxNorm: 1 Tablet(s) PO daily 05/23/2018 05/22/2018 Inactive Proscar 5 mg tablet RxNorm: 454409 TAKE 1 TABLET BY MOUTH ONCE DAILY 05/05/2018 10/31/2018 Active Generic For:PROSCAR 5MG 05/05/2018 9:23:48 AM gabapentin 100 mg capsule RxNorm: 421211 TAKE 1 CAPSULE BY MOUTH THREE TIMES DAILY 04/07/2018 09/03/2018 Active Generic For:NEURONTIN 100MG 04/07/2018 10:37:42 AM allopurinol 100 mg tablet RxNorm: 205123 TAKE 1 TABLET BY MOUTH TWICE DAILY 03/20/2018 09/15/2018 Active 03/19/2018 9:53:25 AM Protonix 40 mg tablet,delayed release RxNorm: 730575 TAKE 1 TABLET BY MOUTH EVERY MORNING 03/13/2018 07/10/2018 Active Generic For:PROTONIX 40MG 03/13/2018 9:02:28 AM N O T I C E Last quantity doesn't match original quantity pravastatin 40 mg tablet RxNorm: 098739 TAKE ONE TABLET BY MOUTH EVERY NIGHT AT BEDTIME 03/13/2018 09/08/2018 Active Generic For:PRAVACHOL 40MG 03/13/2018 9:02:23 AM N O T I C E Last quantity doesn't match original quantity Plavix 75 mg tablet RxNorm: 127077 TAKE 1 TABLET BY MOUTH ONCE DAILY 03/10/2018 10/05/2018 Active Generic For:*PLAVIX 75MG 03/10/2018 10:12:55 AM tamsulosin 0.4 mg capsule RxNorm: 207250 TAKE 1 CAPSULE BY MOUTH ONCE DAILY 03/10/2018 06/03/2018 Inactive Generic For:FLOMAX 0.4MG 03/10/2018 10:12:59 AM Jardiance 10 mg tablet RxNorm: 2043145 1 Tablet(s) PO daily 02/20/2018 08/18/2018 Active Jardiance 10 mg tablet RxNorm: 9137566 1 Tablet(s) PO daily 02/20/2018 02/19/2018 Inactive Plavix 75 mg tablet RxNorm: 736721 1 Tablet(s) PO QHS 02/12/2018 03/09/2018 Inactive tamsulosin 0.4 mg capsule RxNorm: 616549 1 Capsule(s) PO daily 02/12/2018 03/09/2018 Inactive Tylenol 325 mg tablet RxNorm: 360426 1 Tablet(s) PO QHS and every 6 hours prn 02/03/2018 06/02/2018 Inactive loperamide 2 mg tablet RxNorm: 054777 2 after 1st stool & 1 after each add/max 4 in 24 hours Tablet(s) PO 02/03/2018 06/02/2018 Inactive Tylenol 325 mg tablet RxNorm: 804618 1 Tablet(s) PO QHS and every 6 hours prn 02/03/2018 02/02/2018 Inactive loperamide 2 mg tablet RxNorm: 265777 2 after 1st stool & 1 after each add/max 4 in 24 hours Tablet(s) PO 02/03/2018 02/02/2018 Inactive Vitamin B-12 1,000 mcg tablet RxNorm: 107443 TAKE 1 TABLET BY MOUTH ONCE DAILY 01/27/2018 12/22/2018 Active 01/27/2018 10:10:15 AM glimepiride 2 mg tablet RxNorm: 485007 TAKE 1 TABLET BY MOUTH ONCE DAILY 01/27/2018 05/25/2018 Inactive Generic For:AMARYL 2MG 01/27/2018 10:09:58 AM Januvia 100 mg tablet RxNorm: 036632 TAKE 1 TABLET BY MOUTH ONCE DAILY 01/20/2018 02/19/2018 Inactive 01/20/2018 9:58:08 AM Alcohol Pads RxNorm: 669337 1 [facility] 01/07/2018 No Stop Date Active amlodipine 5 mg tablet RxNorm: 873823 TAKE ONE TABLET BY MOUTH DAILY 01/06/2018 07/04/2018 Active Generic For:NORVASC 5MG 01/06/2018 10:33:58 AM N O T I C E Last quantity doesn't match original quantity gabapentin 100 mg capsule RxNorm: 561922 TAKE 1 CAPSULE BY MOUTH THREE TIMES DAILY 01/06/2018 04/06/2018 Inactive Generic For:NEURONTIN 100MG 01/06/2018 10:33:55 AM N O T I C E Last quantity doesn't match original quantity Protonix 40 mg tablet,delayed release RxNorm: 601632 TAKE 1 TABLET BY MOUTH EVERY MORNING 12/16/2017 03/12/2018 Inactive Generic For:PROTONIX 40MG Proscar 5 mg tablet RxNorm: 117418 TAKE 1 TABLET BY MOUTH ONCE DAILY 11/04/2017 05/02/2018 Inactive Generic For:PROSCAR 5MG 11/04/2017 9:47:27 AM Aspirin Low Dose 81 mg tablet,delayed release RxNorm: 896080 1 Tablet(s) PO QHS 10/21/2017 10/15/2018 Active amlodipine 5 mg tablet RxNorm: 050344 TAKE ONE TABLET BY MOUTH DAILY 10/07/2017 01/04/2018 Inactive Generic For:NORVASC 5MG 10/07/2017 9:55:37 AM gabapentin 100 mg capsule RxNorm: 071690 TAKE 1 CAPSULE BY MOUTH THREE TIMES DAILY 10/07/2017 01/04/2018 Inactive Generic For:NEURONTIN 100MG 10/07/2017 9:55:26 AM Januvia 100 mg tablet RxNorm: 451102 TAKE 1 TABLET BY MOUTH ONCE DAILY 09/23/2017 01/19/2018 Inactive 09/23/2017 9:25:24 AM pravastatin 40 mg tablet RxNorm: 786902 TAKE ONE TABLET BY MOUTH EVERY NIGHT AT BEDTIME 09/19/2017 03/12/2018 Inactive Generic For:PRAVACHOL 40MG 09/19/2017 9:12:02 AM Protonix 40 mg tablet,delayed release RxNorm: 963344 TAKE 1 TABLET BY MOUTH EVERY MORNING 09/16/2017 12/15/2017 Inactive Generic For:PROTONIX 40MG 09/16/2017 9:50:22 AM amlodipine 5 mg tablet RxNorm: 950086 TAKE ONE TABLET BY MOUTH DAILY 09/09/2017 10/06/2017 Inactive Generic For:NORVASC 5MG 09/09/2017 9:16:37 AM gabapentin 100 mg capsule RxNorm: 295151 TAKE 1 CAPSULE BY MOUTH THREE TIMES DAILY 09/09/2017 10/06/2017 Inactive Generic For:NEURONTIN 100MG 09/09/2017 9:16:33 AM Vitamin D3 1,000 unit tablet RxNorm: 422626 1 Tablet(s) PO daily 09/04/2017 07/30/2018 Active Vitamin D3 1,000 unit tablet RxNorm: 327624 1 Tablet(s) PO daily 09/03/2017 09/03/2017 Inactive glimepiride 2 mg tablet RxNorm: 426973 TAKE 1 TABLET BY MOUTH ONCE DAILY 09/02/2017 01/26/2018 Inactive Generic For:AMARYL 2MG 09/02/2017 9:35:29 AM Vitamin B-12 1,000 mcg tablet RxNorm: 217758 TAKE 1 TABLET BY MOUTH ONCE DAILY 09/02/2017 01/26/2018 Inactive 09/02/2017 9:35:38 AM pravastatin 40 mg tablet RxNorm: 364460 1 Tablet(s) PO QHS 08/22/2017 08/21/2017 Inactive pravastatin 40 mg tablet RxNorm: 232117 1 Tablet(s) PO QHS 08/22/2017 09/18/2017 Inactive glimepiride 2 mg tablet RxNorm: 292067 1 Tablet(s) PO daily 07/24/2017 09/01/2017 Inactive hydrocodone 5 mg-acetaminophen 325 mg tablet RxNorm: 435040 1-2 Tablet(s) PO Q4H as needed for pain 07/23/2017 08/28/2017 Inactive Proscar 5 mg tablet RxNorm: 354798 1 Tablet(s) PO daily No Start Date 11/03/2017 Inactive Metamucil oral packet RxNorm: 1 packet PO daily No Start Date 07/23/2017 Inactive Vitamin B-12 1,000 mcg tablet RxNorm: 099498 1 Tablet(s) PO daily No Start Date 09/01/2017 Inactive tamsulosin 0.4 mg capsule RxNorm: 440927 1 Capsule(s) PO daily No Start Date 02/11/2018 Inactive Plavix 75 mg tablet RxNorm: 388207 1 Tablet(s) PO QHS No Start Date 02/11/2018 Inactive Alcohol Pads RxNorm: 308945 1 TOP No Start Date 01/06/2018 Inactive Vitamin D3 1,000 unit tablet RxNorm: 101862 1 Tablet(s) PO daily No Start Date 09/02/2017 Inactive gabapentin 100 mg capsule RxNorm: 768721 1 Capsule(s) PO TID No Start Date 09/08/2017 Inactive olanzapine 5 mg tablet RxNorm: 239540 1 Tablet(s) PO QHS No Start Date 07/22/2017 Inactive Lipitor 40 mg tablet RxNorm: 086718 1 Tablet(s) PO QHS No Start Date 08/21/2017 Inactive Januvia 100 mg tablet RxNorm: 401524 1 Tablet(s) PO QHS No Start Date 09/22/2017 Inactive folic acid 1 mg tablet RxNorm: 331098 1 Tablet(s) PO daily No Start Date 07/23/2017 Inactive hydrocodone 5 mg-acetaminophen 325 mg tablet RxNorm: 584585 1 Tablet(s) PO Q4H as needed for pain No Start Date 07/22/2017 Inactive Protonix 40 mg tablet,delayed release RxNorm: 409605 1 Tablet(s) PO daily No Start Date 09/15/2017 Inactive allopurinol 100 mg tablet RxNorm: 917757 1 Tablet(s) PO BID No Start Date 03/19/2018 Inactive amlodipine 5 mg tablet RxNorm: 363452 1 Tablet(s) PO daily No Start Date 09/08/2017 Inactive Aspirin Low Dose 81 mg tablet,delayed release RxNorm: 666183 1 Tablet(s) PO QHS No Start Date [...] Code Item Item Code Result Date %Hba1C Xbg653 % HbA1c 41958- 6 7.0 % 05/29/2018 %Hba1C Gjo052 Gluc Ave 154 mg/dL 05/29/2018 Comp Metabolic Bxr604 NA 139 mEq/L 05/29/2018 Comp Metabolic Xjo144 K 4.1 mEq/L 05/29/2018 Comp Metabolic Fua048 CL 109 mEq/L 05/29/2018 Comp Metabolic Tvz408 CO2 23.0 mEq/L 05/29/2018 Comp Metabolic Mir558 ANION GAP 11 05/29/2018 Comp Metabolic Qon297 GLUCOSE 164 mg/dL 05/29/2018 Comp Metabolic Mri159 Creat 1.4 mg/dL 05/29/2018 Comp Metabolic Olw427 eGFR 50 ml/min/1.73m2 05/29/2018 Comp Metabolic Pkv072 BUN 30 mg/dL 05/29/2018 Comp Metabolic Bjd712 B/C Ratio 21.0 Ratio 05/29/2018 Comp Metabolic Tfp611 CALCIUM 9.2 mg/dL 05/29/2018 Comp Metabolic Tzv415 ALK PHOS 55 U/L 05/29/2018 Comp Metabolic Ajx076 AST(SGOT) 11 U/L 05/29/2018 Comp Metabolic Rxs938 ALT(SGPT) 15 U/L 05/29/2018 Comp Metabolic Gva021 BILI T 0.8 mg/dL 05/29/2018 Comp Metabolic Ssy320 ALBUMIN 4.0 g/dL 05/29/2018 Comp Metabolic Zhe500 TPRO 6.3 g/dL 05/29/2018 Comp Metabolic Wyb060 GLOB 2.4 g/dL 05/29/2018 Comp Metabolic Tqf421 A/G Ratio 1.7 Ratio 05/29/2018 Comp Metabolic Dcr913 Osmo 287 mOsmo 05/29/2018 Cbc With Differential [...] 31.1 pg 05/29/2018 Cbc With Differential Ord2 [place]% 8.9 % 05/29/2018 Cbc With Differential Ord2 [...] 1.90 K/ul 05/29/2018 Cbc With Differential Ord2 [place] ABS# 0.7 K/ul 05/29/2018 Cbc With Differential [...] 30.6 pg 11/29/2017 Cbc With Differential Ord2 [place]% 8.0 % 11/29/2017 Cbc With Differential Ord2 [...] 1.46 K/ul 11/29/2017 Cbc With Differential Ord2 [place] ABS# 0.6 K/ul 11/29/2017 Cbc With Differential Ord2 Eos ABS# 0.2 K/ul 11/29/2017 Cbc With Differential Ord2 Baso ABS# 0.0 K/ul 11/29/2017 Lipid Ord30 CHOL 115 mg/dL 11/29/2017 Lipid Ord30 HDL 40.0 mg/dl 11/29/2017 Lipid Ord30 TRIG 114 mg/dL 11/29/2017 Lipid Ord30 LDL 52 mg/dL 11/29/2017 Lipid Ord30 C/HDL 2.9 Ratio 11/29/2017 %Hba1C Cge776 % HbA1c 06031- 6 6.5 % 11/29/2017 %Hba1C Wtp781 Gluc Ave 140 mg/dL 11/29/2017 Comp Metabolic Hzp346 NA 140 mEq/L 11/29/2017 Comp Metabolic Yjr406 K 3.6 mEq/L 11/29/2017 Comp Metabolic Ujn037 CL 106 mEq/L 11/29/2017 Comp Metabolic Pos970 CO2 24.0 mEq/L 11/29/2017 Comp Metabolic Jtw560 ANION GAP 14 11/29/2017 Comp Metabolic Soj083 GLUCOSE 151 mg/dL 11/29/2017 Comp Metabolic Fnq150 Creat 1.2 mg/dL 11/29/2017 Comp Metabolic Xbu157 eGFR 61 ml/min/1.73m2 11/29/2017 Comp Metabolic Trk694 BUN 34 mg/dL 11/29/2017 Comp Metabolic Pcq462 B/C Ratio 28.3 Ratio 11/29/2017 Comp Metabolic Ykk603 CALCIUM 8.9 mg/dL 11/29/2017 Comp Metabolic Rnc582 ALK PHOS 69 U/L 11/29/2017 Comp Metabolic Kci191 AST(SGOT) 13 U/L 11/29/2017 Comp Metabolic Fub557 ALT(SGPT) 16 U/L 11/29/2017 Comp Metabolic Pgq159 BILI T 0.7 mg/dL 11/29/2017 Comp Metabolic Jcm053 ALBUMIN 3.5 g/dL 11/29/2017 Comp Metabolic Ect048 TPRO 5.7 g/dL 11/29/2017 Comp Metabolic Mkw276 GLOB 2.2 g/dL 11/29/2017 Comp Metabolic Hvp803 A/G Ratio 1.6 Ratio 11/29/2017 Comp Metabolic Wac389 Osmo 290 mOsmo 11/29/2017 Review of Systems [...] 1: 112/68 Code: 8480-6 BMI: 33.4 Code: 64246-1 Heart Rate 1: 100 bpm Height: 5'7" [...] 1: 138/76 Code: 8480-6 BMI: 33.2 Code: 59411-5 Heart Rate 1: 83 bpm Height: 5'7" [...] data Encounters Encounter Performer Location Codes Date ([id number]) [id number] EST. PATIENT, LEVEL IV Diagnosis: Type 2 diabetes mellitus with hyperglycemia[ICD10: E11.65] Diagnosis: Essential (primary) hypertension[ICD10: I10] Diagnosis: Chronic kidney disease, stage 3 (moderate)[ICD10: N18.3] Diagnosis: Primary generalized (osteo)arthritis[ICD10: M15.0] Geneva Spaulding MD, [facility] CPT-4: 97565 05/29/2018 [id number]) [id number] EST. PATIENT, LEVEL IV Diagnosis: Type 2 diabetes mellitus with hyperglycemia[ICD10: E11.65] Diagnosis: Essential (primary) hypertension[ICD10: I10] Diagnosis: Diarrhea, unspecified[ICD10: R19.7] Geneva Spaulding MD, [facility] CPT-4: 79247 02/27/2018 ([id number]) [id number] EST. PATIENT, LEVEL IV Diagnosis: Essential (primary) hypertension[ICD10: I10] Diagnosis: Type 2 diabetes mellitus with hyperglycemia[ICD10: E11.65] Diagnosis: Chronic kidney disease, stage 3 (moderate)[ICD10: N18.3] Diagnosis: Cervicalgia[ICD10: M54.2] Geneva Spaulding MD, [facility] CPT-4: 62946 11/28/2017 ([id number]) [id number] EST. PATIENT, LEVEL III Diagnosis: Essential (primary) hypertension[ICD10: I10] Diagnosis: Type 2 diabetes mellitus with hyperglycemia[ICD10: E11.65] Diagnosis: Foot drop, left foot[ICD10: M21.372] Geneva Spaulding MD, [facility] CPT-4: 47060 08/29/2017 OFFICE VISIT, NEW - LEVEL 4 Diagnosis: Essential (primary) hypertension[ICD10: I10] Diagnosis: Type 2 diabetes mellitus with hyperglycemia[ICD10: E11.65] Diagnosis: Chronic kidney disease, stage 3 (moderate)[ICD10: N18.3] Diagnosis: Muscle weakness (generalized)[ICD10: M62.81] [facility] CPT-4: 84072 07/23/2017 Plan of Care Planned Activity Notes [...] CKD-check labs 05/29/2018 Appointment: Geneva Case WPtel: [address] [place], [place] [phone] (30 min) [facility] 05/29/2018 Patient Education: Patient Medication Summary [...] change in blood pressure readings at home. Bhwudguu-ggcsazgcazrx-ftilz probiotics as directed 02/27/2018 Appointment: [facility] [phone] [facility] [phone] (15 min) Moderate 02/27/2018 Patient Education: Patient [...] labs 11/28/2017 App[facility]ment: [facility] [address] [facility] [phone] [place] (15 min) Moderate 11/28/2017 Patient Education: [...] safer ambulation. 08/29/2017 Appointment: Geneva Case WPtel: [phone] (15 min) Moderate 08/29/2017 Patient Education: Patient [...] are starting to become less controlled. Generalized ptgdmrgd-bichqbdtq-bxknnxem PT- plan to move back to [facility] when able 07/23/2017 Appointment: Geneva Case WPtel: [phone] New Patient 07/23/2017 Patient Education: Patient Medication [...] are starting to become less controlled. Generalized xwozxhrm-rhjmpujhs-zrwrmmbx PT-plan to move back to [facility] when able SCHEDULE TYLENOL TWICE DAILY AND [...] change in blood pressure readings at home. Xjaqcltv-cmqlcqcbcxmp-fwsjh probiotics as directed . Hypertension - well [...]
--- OUTSIDE RECORDS SUMMARY | 2018-08-21 10:29 | XMS REPORT | CCD ---
Author Author Geneva Case MD, [facility] Address [address] [place] [address] Phone Care Team Providers Care [employer] Technician Name Role Phone PP Unavailable CCM Unavailable Summary Purpose Interface Exchange Insurance Providers Payer name Policy type / Coverage type Covered democrat ID Effective Begin Date Effective End Date WPS Medicare Part B Medicare Part B [id number] Unknown Trupanion Medicare Part B [id number] Unknown Family history Mother Diagnosis Age At Onset No Known Diseases N/A Father Diagnosis Age At Onset No Known Diseases N/A Social History Social History Element Codes Description Effective Dates Living arrangements Unknown Assisted Living [place] 11/28/2017 Marital status Unknown 07/23/2017 Employment Unknown [...] Start Date Stop Date Status Fill Instructions glimepiride 2 mg tablet RxNorm: 808165 TAKE 1 TABLET BY MOUTH ONCE DAILY 05/26/2018 04/20/2019 Active Generic For:AMARYL 2MG 05/26/2018 1:31:32 PM Floranex 100 million cell oral granules in packet RxNorm: 1 Tablet(s) PO daily 05/23/2018 09/19/2018 Active Floranex 100 million cell oral granules in packet RxNorm: 1 Tablet(s) PO daily 05/23/2018 05/22/2018 Inactive Proscar 5 mg tablet RxNorm: 148042 TAKE 1 TABLET BY MOUTH ONCE DAILY 05/05/2018 10/31/2018 Active Generic For:PROSCAR 5MG 05/05/2018 9:23:48 AM gabapentin 100 mg capsule RxNorm: 751248 TAKE 1 CAPSULE BY MOUTH THREE TIMES DAILY 04/07/2018 09/03/2018 Active Generic For:NEURONTIN 100MG 04/07/2018 10:37:42 AM allopurinol 100 mg tablet RxNorm: 198721 TAKE 1 TABLET BY MOUTH TWICE DAILY 03/20/2018 09/15/2018 Active 03/19/2018 9:53:25 AM Protonix 40 mg tablet,delayed release RxNorm: 948997 TAKE 1 TABLET BY MOUTH EVERY MORNING 03/13/2018 07/10/2018 Active Generic For:PROTONIX 40MG 03/13/2018 9:02:28 AM N O T I C E Last quantity doesn't match original quantity pravastatin 40 mg tablet RxNorm: 357595 TAKE ONE TABLET BY MOUTH EVERY NIGHT AT BEDTIME 03/13/2018 09/08/2018 Active Generic For:PRAVACHOL 40MG 03/13/2018 9:02:23 AM N O T I C E Last quantity doesn't match original quantity tamsulosin 0.4 mg capsule RxNorm: 420699 TAKE 1 CAPSULE BY MOUTH ONCE DAILY 03/10/2018 08/06/2018 Active Generic For:FLOMAX 0.4MG 03/10/2018 10:12:59 AM Plavix 75 mg tablet RxNorm: 441917 TAKE 1 TABLET BY MOUTH ONCE DAILY 03/10/2018 10/05/2018 Active Generic For:*PLAVIX 75MG 03/10/2018 10:12:55 AM Jardiance 10 mg tablet RxNorm: 6975433 1 Tablet(s) PO daily 02/20/2018 08/18/2018 Active Jardiance 10 mg tablet RxNorm: 6710960 1 Tablet(s) PO daily 02/20/2018 02/19/2018 Inactive Plavix 75 mg tablet RxNorm: 082402 1 Tablet(s) PO QHS 02/12/2018 03/09/2018 Inactive tamsulosin 0.4 mg capsule RxNorm: 500273 1 Capsule(s) PO daily 02/12/2018 03/09/2018 Inactive Tylenol 325 mg tablet RxNorm: 130351 1 Tablet(s) PO QHS and every 6 hours prn 02/03/2018 06/02/2018 Inactive loperamide 2 mg tablet RxNorm: 583154 2 after 1st stool & 1 after each add/max 4 in 24 hours Tablet(s) PO 02/03/2018 06/02/2018 Inactive Tylenol 325 mg tablet RxNorm: 447526 1 Tablet(s) PO QHS and every 6 hours prn 02/03/2018 02/02/2018 Inactive loperamide 2 mg tablet RxNorm: 828584 2 after 1st stool & 1 after each add/max 4 in 24 hours Tablet(s) PO 02/03/2018 02/02/2018 Inactive Vitamin B-12 1,000 mcg tablet RxNorm: 735609 TAKE 1 TABLET BY MOUTH ONCE DAILY 01/27/2018 12/22/2018 Active 01/27/2018 10:10:15 AM glimepiride 2 mg tablet RxNorm: 848042 TAKE 1 TABLET BY MOUTH ONCE DAILY 01/27/2018 05/25/2018 Inactive Generic For:AMARYL 2MG 01/27/2018 10:09:58 AM Januvia 100 mg tablet RxNorm: 627860 TAKE 1 TABLET BY MOUTH ONCE DAILY 01/20/2018 02/19/2018 Inactive 01/20/2018 9:58:08 AM Alcohol Pads RxNorm: 220352 1 [facility] 01/07/2018 No Stop Date Active amlodipine 5 mg tablet RxNorm: 172022 TAKE ONE TABLET BY MOUTH DAILY 01/06/2018 07/04/2018 Active Generic For:NORVASC 5MG 01/06/2018 10:33:58 AM N O T I C E Last quantity doesn't match original quantity gabapentin 100 mg capsule RxNorm: 593870 TAKE 1 CAPSULE BY MOUTH THREE TIMES DAILY 01/06/2018 04/06/2018 Inactive Generic For:NEURONTIN 100MG 01/06/2018 10:33:55 AM N O T I C E Last quantity doesn't match original quantity Protonix 40 mg tablet,delayed release RxNorm: 303594 TAKE 1 TABLET BY MOUTH EVERY MORNING 12/16/2017 03/12/2018 Inactive Generic For:PROTONIX 40MG Proscar 5 mg tablet RxNorm: 271391 TAKE 1 TABLET BY MOUTH ONCE DAILY 11/04/2017 05/02/2018 Inactive Generic For:PROSCAR 5MG 11/04/2017 9:47:27 AM Aspirin Low Dose 81 mg tablet,delayed release RxNorm: 852139 1 Tablet(s) PO Q 10/21/2017 10/15/2018 Active amlodipine 5 mg tablet RxNorm: 233458 TAKE ONE TABLET BY MOUTH DAILY 10/07/2017 01/04/2018 Inactive Generic For:NORVASC 5MG 10/07/2017 9:55:37 AM gabapentin 100 mg capsule RxNorm: 063399 TAKE 1 CAPSULE BY MOUTH THREE TIMES DAILY 10/07/2017 01/04/2018 Inactive Generic For:NEURONTIN 100MG 10/07/2017 9:55:26 AM Januvia 100 mg tablet RxNorm: 990340 TAKE 1 TABLET BY MOUTH ONCE DAILY 09/23/2017 01/19/2018 Inactive 09/23/2017 9:25:24 AM pravastatin 40 mg tablet RxNorm: 004709 TAKE ONE TABLET BY MOUTH EVERY NIGHT AT BEDTIME 09/19/2017 03/12/2018 Inactive Generic For:PRAVACHOL 40MG 09/19/2017 9:12:02 AM Protonix 40 mg tablet,delayed release RxNorm: 808771 TAKE 1 TABLET BY MOUTH EVERY MORNING 09/16/2017 12/15/2017 Inactive Generic For:PROTONIX 40MG 09/16/2017 9:50:22 AM amlodipine 5 mg tablet RxNorm: 853030 TAKE ONE TABLET BY MOUTH DAILY 09/09/2017 10/06/2017 Inactive Generic For:NORVASC 5MG 09/09/2017 9:16:37 AM gabapentin 100 mg capsule RxNorm: 748653 TAKE 1 CAPSULE BY MOUTH THREE TIMES DAILY 09/09/2017 10/06/2017 Inactive Generic For:NEURONTIN 100MG 09/09/2017 9:16:33 AM Vitamin D3 1,000 unit tablet RxNorm: 727878 1 Tablet(s) PO daily 09/04/2017 07/30/2018 Active Vitamin D3 1,000 unit tablet RxNorm: 477177 1 Tablet(s) PO daily 09/03/2017 09/03/2017 Inactive glimepiride 2 mg tablet RxNorm: 423714 TAKE 1 TABLET BY MOUTH ONCE DAILY 09/02/2017 01/26/2018 Inactive Generic For:AMARYL 2MG 09/02/2017 9:35:29 AM Vitamin B-12 1,000 mcg tablet RxNorm: 471260 TAKE 1 TABLET BY MOUTH ONCE DAILY 09/02/2017 01/26/2018 Inactive 09/02/2017 9:35:38 AM pravastatin 40 mg tablet RxNorm: 270463 1 Tablet(s) PO QHS 08/22/2017 08/21/2017 Inactive pravastatin 40 mg tablet RxNorm: 017699 1 Tablet(s) PO QHS 08/22/2017 09/18/2017 Inactive glimepiride 2 mg tablet RxNorm: 776101 1 Tablet(s) PO daily 07/24/2017 09/01/2017 Inactive hydrocodone 5 mg-acetaminophen 325 mg tablet RxNorm: 435701 1-2 Tablet(s) PO Q4H as needed for pain 07/23/2017 08/28/2017 Inactive Proscar 5 mg tablet RxNorm: 587184 1 Tablet(s) PO daily No Start Date 11/03/2017 Inactive Metamucil oral packet RxNorm: 1 packet PO daily No Start Date 07/23/2017 Inactive Vitamin B-12 1,000 mcg tablet RxNorm: 242694 1 Tablet(s) PO daily No Start Date 09/01/2017 Inactive tamsulosin 0.4 mg capsule RxNorm: 788285 1 Capsule(s) PO daily No Start Date 02/11/2018 Inactive Plavix 75 mg tablet RxNorm: 499645 1 Tablet(s) PO QHS No Start Date 02/11/2018 Inactive Alcohol Pads RxNorm: 677985 1 TOP UD No Start Date 01/06/2018 Inactive Vitamin D3 1,000 unit tablet RxNorm: 257263 1 Tablet(s) PO daily No Start Date 09/02/2017 Inactive gabapentin 100 mg capsule RxNorm: 968670 1 Capsule(s) PO TID No Start Date 09/08/2017 Inactive olanzapine 5 mg tablet RxNorm: 016150 1 Tablet(s) PO QHS No Start Date 07/22/2017 Inactive Lipitor 40 mg tablet RxNorm: 302414 1 Tablet(s) PO QHS No Start Date 08/21/2017 Inactive Januvia 100 mg tablet RxNorm: 263528 1 Tablet(s) PO QHS No Start Date 09/22/2017 Inactive folic acid 1 mg tablet RxNorm: 070166 1 Tablet(s) PO daily No Start Date 07/23/2017 Inactive hydrocodone 5 mg-acetaminophen 325 mg tablet RxNorm: 939559 1 Tablet(s) PO Q4H as needed for pain No Start Date 07/22/2017 Inactive Protonix 40 mg tablet,delayed release RxNorm: 005684 1 Tablet(s) PO daily No Start Date 09/15/2017 Inactive allopurinol 100 mg tablet RxNorm: 878982 1 Tablet(s) PO BID No Start Date 03/19/2018 Inactive amlodipine 5 mg tablet RxNorm: 746649 1 Tablet(s) PO daily No Start Date 09/08/2017 Inactive Aspirin Low Dose 81 mg tablet,delayed release RxNorm: 069150 1 Tablet(s) PO QHS No Start Date [...] Code Item Item Code Result Date %Hba1C Yzb153 % HbA1c 29813- 6 7.0 % 05/29/2018 %Hba1C Jxq843 Gluc Ave 154 mg/dL 05/29/2018 Comp Metabolic Eud721 NA 139 mEq/L 05/29/2018 Comp Metabolic Kys672 K 4.1 mEq/L 05/29/2018 Comp Metabolic Crv853 CL 109 mEq/L 05/29/2018 Comp Metabolic Lsl061 CO2 23.0 mEq/L 05/29/2018 Comp Metabolic Lhe574 ANION GAP 11 05/29/2018 Comp Metabolic Jtz710 GLUCOSE 164 mg/dL 05/29/2018 Comp Metabolic Kmr701 Creat 1.4 mg/dL 05/29/2018 Comp Metabolic Ype705 eGFR 50 ml/min/1.73m2 05/29/2018 Comp Metabolic Qwg826 BUN 30 mg/dL 05/29/2018 Comp Metabolic Dzk435 B/C Ratio 21.0 Ratio 05/29/2018 Comp Metabolic Lqn896 CALCIUM 9.2 mg/dL 05/29/2018 Comp Metabolic Twm864 ALK PHOS 55 U/L 05/29/2018 Comp Metabolic Ahd481 AST(SGOT) 11 U/L 05/29/2018 Comp Metabolic Ldn741 ALT(SGPT) 15 U/L 05/29/2018 Comp Metabolic Eii589 BILI T 0.8 mg/dL 05/29/2018 Comp Metabolic Mkm260 ALBUMIN 4.0 g/dL 05/29/2018 Comp Metabolic Qkr063 TPRO 6.3 g/dL 05/29/2018 Comp Metabolic Wzn158 GLOB 2.4 g/dL 05/29/2018 Comp Metabolic Ekj062 A/G Ratio 1.7 Ratio 05/29/2018 Comp Metabolic Xxw515 Osmo 287 mOsmo 05/29/2018 Cbc With Differential [...] 31.1 pg 05/29/2018 Cbc With Differential Ord2 [place]% 8.9 % 05/29/2018 Cbc With Differential Ord2 [...] 1.90 K/ul 05/29/2018 Cbc With Differential Ord2 [place] ABS# 0.7 K/ul 05/29/2018 Cbc With Differential [...] 30.6 pg 11/29/2017 Cbc With Differential Ord2 [place]% 8.0 % 11/29/2017 Cbc With Differential Ord2 [...] 1.46 K/ul 11/29/2017 Cbc With Differential Ord2 [place] ABS# 0.6 K/ul 11/29/2017 Cbc With Differential Ord2 Eos ABS# 0.2 K/ul 11/29/2017 Cbc With Differential Ord2 Baso ABS# 0.0 K/ul 11/29/2017 Lipid Ord30 CHOL 115 mg/dL 11/29/2017 Lipid Ord30 HDL 40.0 mg/dl 11/29/2017 Lipid Ord30 TRIG 114 mg/dL 11/29/2017 Lipid Ord30 LDL 52 mg/dL 11/29/2017 Lipid Ord30 C/HDL 2.9 Ratio 11/29/2017 %Hba1C Zyk278 % HbA1c 76506- 6 6.5 % 11/29/2017 %Hba1C Nnn229 Gluc Ave 140 mg/dL 11/29/2017 Comp Metabolic Vlh152 NA 140 mEq/L 11/29/2017 Comp Metabolic Hez358 K 3.6 mEq/L 11/29/2017 Comp Metabolic Jjv859 CL 106 mEq/L 11/29/2017 Comp Metabolic Yte224 CO2 24.0 mEq/L 11/29/2017 Comp Metabolic Iwg766 ANION GAP 14 11/29/2017 Comp Metabolic Hma589 GLUCOSE 151 mg/dL 11/29/2017 Comp Metabolic Gcm093 Creat 1.2 mg/dL 11/29/2017 Comp Metabolic Xnd685 eGFR 61 ml/min/1.73m2 11/29/2017 Comp Metabolic Vin192 BUN 34 mg/dL 11/29/2017 Comp Metabolic Zrp893 B/C Ratio 28.3 Ratio 11/29/2017 Comp Metabolic Mth636 CALCIUM 8.9 mg/dL 11/29/2017 Comp Metabolic Wun479 ALK PHOS 69 U/L 11/29/2017 Comp Metabolic Sjl881 AST(SGOT) 13 U/L 11/29/2017 Comp Metabolic Xqn891 ALT(SGPT) 16 U/L 11/29/2017 Comp Metabolic Gro619 BILI T 0.7 mg/dL 11/29/2017 Comp Metabolic Wis397 ALBUMIN 3.5 g/dL 11/29/2017 Comp Metabolic Qyj444 TPRO 5.7 g/dL 11/29/2017 Comp Metabolic Fhh113 GLOB 2.2 g/dL 11/29/2017 Comp Metabolic Yxs606 A/G Ratio 1.6 Ratio 11/29/2017 Comp Metabolic Tae080 Osmo 290 mOsmo 11/29/2017 Review of Systems [...] 1: 112/68 Code: 8480-6 BMI: 33.4 Code: 41659-9 Heart Rate 1: 100 bpm Height: 5'7" [...] 1: 138/76 Code: 8480-6 BMI: 33.2 Code: 40073-2 Heart Rate 1: 83 bpm Height: 5'7" [...] data Encounters Encounter Performer Location Codes Date ([id number]) [id number] EST. PATIENT, LEVEL IV Diagnosis: Type 2 diabetes mellitus with hyperglycemia[ICD10: E11.65] Diagnosis: Essential (primary) hypertension[ICD10: I10] Diagnosis: Chronic kidney disease, stage 3 (moderate)[ICD10: N18.3] Diagnosis: Primary generalized (osteo)arthritis[ICD10: M15.0] Geneva Spaulding MD, [facility] CPT-4: 07831 05/29/2018 ([id number]) [id number] EST. PATIENT, LEVEL IV Diagnosis: Type 2 diabetes mellitus with hyperglycemia[ICD10: E11.65] Diagnosis: Essential (primary) hypertension[ICD10: I10] Diagnosis: Diarrhea, unspecified[ICD10: R19.7] Geneva Spaulding MD, [facility] CPT-4: 48341 02/27/2018 ([id number]) [id number] EST. PATIENT, LEVEL IV Diagnosis: Essential (primary) hypertension[ICD10: I10] Diagnosis: Type 2 diabetes mellitus with hyperglycemia[ICD10: E11.65] Diagnosis: Chronic kidney disease, stage 3 (moderate)[ICD10: N18.3] Diagnosis: Cervicalgia[ICD10: M54.2] Geneva Spaulding MD, [facility] CPT-4: 91048 11/28/[id number]) [id number] EST. PATIENT, LEVEL III Diagnosis: Essential (primary) hypertension[ICD10: I10] Diagnosis: Type 2 diabetes mellitus with hyperglycemia[ICD10: E11.65] Diagnosis: Foot drop, left foot[ICD10: M21.372] [facility] CPT-4: 68550 08/29/2017 OFFICE VISIT, NEW - LEVEL 4 Diagnosis: Essential (primary) hypertension[ICD10: I10] Diagnosis: Type 2 diabetes mellitus with hyperglycemia[ICD10: E11.65] Diagnosis: Chronic kidney disease, stage 3 (moderate)[ICD10: N18.3] Diagnosis: Muscle weakness (generalized)[ICD10: M62.81] [facility] CPT-4: 44520 07/23/2017 Plan of Care Planned Activity Notes [...] CKD-check labs 05/29/2018 Appointment: Geneva [facility] WPtel[phone] [facility] min[facility] 05/29/2018 Patient Education: Patient Medication Summary [...] change in blood pressure readings at home. Ufjepicw-pbrtajnykeue-bbabb probiotics as directed 02/27/2018 Appointment: Geneva [facility]el[facility] [phone] [phone] (15 min) Moderate 02/27/2018 Patient Education: [...] labs 11/28/2017 Appointment: Geneva [facility] [phone] [phone] (15 min) Moderate 11/28/2017 Patient Education: Patient [...] safer ambulation. 08/29/2017 Appointment: Geneva Case WPtel: [facility] (15 min) Moderate 08/29/2017 Patient Education: [...] are starting to become less controlled. Generalized rmqnqefc-gkzalxuxr-meymemiz PT- plan to move back to [place] when able 07/23/2017 Appointment: Geneva Case WPtel: [address] [place], [place] [phone] New Patient 07/23/2017 Patient Education: Patient Medication [...] are starting to become less controlled. Generalized qptbcpah-bcgwsfsir-dvdpyphm PT-plan to move back to [place] when able SCHEDULE TYLENOL TWICE DAILY AND [...] change in blood pressure readings at home. Ymjegacj-ebrsgutykbpp-rktqw probiotics as directed . Hypertension - well [...]
--- OUTSIDE RECORDS SUMMARY | 2018-08-21 10:31 | XMS REPORT | CCD ---
Author Author Geneva Case MD, [facility] Address [address] [place] [address] Phone Care Team Providers Care Travel Attendants Name Role Phone PP Unavailable CCM Unavailable Summary Purpose Interface Exchange Insurance Providers Payer name Policy type / Coverage type Covered democrat ID Effective Begin Date Effective End Date WPS Medicare Part B Medicare Part B [id number] Unknown Launchr Medicare Part B [id number] Unknown Family history Mother Diagnosis Age At Onset No Known Diseases N/A Father Diagnosis Age At Onset No Known Diseases N/A Social History Social History Element Codes Description Effective Dates Living arrangements Unknown Assisted Living [place] 11/28/2017 Marital status Unknown 07/23/2017 Employment Unknown Retired 07/23/2017 Allergies, Adverse Reactions, Alerts Substance Reaction Codes Entered Date Inactivated Date Status * OTHER REACTION - SEE ANSWER BOX Metformin Unknown 07/23/2017 No Inactive Date Active Past Medical History Illness Codes Condition Status Onset Date Resolved Date Diarrhea, unspecified ICD- 9: 787.91 ICD-10: R19.7 Active 02/27/2018 Unknown Essential (primary) hypertension ICD-9: 401.1 ICD-10: I10 Active 07/23/2017 Unknown Type 2 diabetes mellitus with hyperglycemia ICD-9: 250.02 ICD-10: E11.65 Active 07/23/2017 Unknown Cervicalgia ICD-9: 723.1 ICD-10: M54.2 Active 11/28/2017 Unknown Chronic kidney disease, stage 3 (moderate) ICD-9: 585.3 ICD-10: N18.3 Active 07/23/2017 Unknown Foot drop, left foot ICD- 9: 736.79 ICD-10: M21.372 Active 08/29/2017 Unknown Muscle weakness (generalized) ICD-9: 728.87 ICD-10: M62.81 Active 07/23/2017 Unknown Problems Condition Codes Effective Dates Condition Status Diarrhea, unspecified ICD- 9: 787.91 ICD-10: R19.7 02/27/2018 Active Essential (primary) hypertension ICD-9: 401.1 ICD-10: I10 07/23/2017 Active Type 2 diabetes mellitus with hyperglycemia ICD-9: 250.02 ICD-10: E11.65 07/23/2017 Active Cervicalgia ICD-9: 723.1 ICD-10: M54.2 11/28/2017 Active Chronic kidney disease, stage 3 (moderate) ICD-9: 585.3 ICD-10: N18.3 07/23/2017 Active Foot drop, left foot ICD- 9: 736.79 ICD-10: M21.372 08/29/2017 Active Muscle weakness (generalized) ICD-9: 728.87 ICD-10: M62.81 07/23/2017 Active Medications Medication Codes Instructions Start Date Stop Date Status Fill Instructions glimepiride 2 mg tablet RxNorm: 125658 TAKE 1 TABLET BY MOUTH ONCE DAILY 05/26/2018 04/20/2019 Active Generic For:AMARYL 2MG 05/26/2018 1:31:32 PM Floranex 100 million cell oral granules in packet RxNorm: 1 Tablet(s) PO daily 05/23/2018 09/19/2018 Active Floranex 100 million cell oral granules in packet RxNorm: 1 Tablet(s) PO daily 05/23/2018 05/22/2018 Inactive Proscar 5 mg tablet RxNorm: 788840 TAKE 1 TABLET BY MOUTH ONCE DAILY 05/05/2018 10/31/2018 Active Generic For:PROSCAR 5MG 05/05/2018 9:23:48 AM gabapentin 100 mg capsule RxNorm: 127365 TAKE 1 CAPSULE BY MOUTH THREE TIMES DAILY 04/07/2018 09/03/2018 Active Generic For:NEURONTIN 100MG 04/07/2018 10:37:42 AM allopurinol 100 mg tablet RxNorm: 560204 TAKE 1 TABLET BY MOUTH TWICE DAILY 03/20/2018 09/15/2018 Active 03/19/2018 9:53:25 AM Protonix 40 mg tablet,delayed release RxNorm: 024599 TAKE 1 TABLET BY MOUTH EVERY MORNING 03/13/2018 07/10/2018 Active Generic For:PROTONIX 40MG 03/13/2018 9:02:28 AM N O T I C E Last quantity doesn't match original quantity pravastatin 40 mg tablet RxNorm: 038689 TAKE ONE TABLET BY MOUTH EVERY NIGHT AT BEDTIME 03/13/2018 09/08/2018 Active Generic For:PRAVACHOL 40MG 03/13/2018 9:02:23 AM N O T I C E Last quantity doesn't match original quantity tamsulosin 0.4 mg capsule RxNorm: 269212 TAKE 1 CAPSULE BY MOUTH ONCE DAILY 03/10/2018 08/06/2018 Active Generic For:FLOMAX 0.4MG 03/10/2018 10:12:59 AM Plavix 75 mg tablet RxNorm: 177345 TAKE 1 TABLET BY MOUTH ONCE DAILY 03/10/2018 10/05/2018 Active Generic For:*PLAVIX 75MG 03/10/2018 10:12:55 AM Jardiance 10 mg tablet RxNorm: 0947776 1 Tablet(s) PO daily 02/20/2018 08/18/2018 Active Jardiance 10 mg tablet RxNorm: 2475135 1 Tablet(s) PO daily 02/20/2018 02/19/2018 Inactive Plavix 75 mg tablet RxNorm: 656917 1 Tablet(s) PO QHS 02/12/2018 03/09/2018 Inactive tamsulosin 0.4 mg capsule RxNorm: 704469 1 Capsule(s) PO daily 02/12/2018 03/09/2018 Inactive Tylenol 325 mg tablet RxNorm: 542273 1 Tablet(s) PO QHS and every 6 hours prn 02/03/2018 06/02/2018 Active loperamide 2 mg tablet RxNorm: 978954 2 after 1st stool & 1 after each add/max 4 in 24 hours Tablet(s) PO 02/03/2018 06/02/2018 Active Tylenol 325 mg tablet RxNorm: 715314 1 Tablet(s) PO QHS and every 6 hours prn 02/03/2018 02/02/2018 Inactive loperamide 2 mg tablet RxNorm: 440186 2 after 1st stool & 1 after each add/max 4 in 24 hours Tablet(s) PO 02/03/2018 02/02/2018 Inactive Vitamin B-12 1,000 mcg tablet RxNorm: 359683 TAKE 1 TABLET BY MOUTH ONCE DAILY 01/27/2018 12/22/2018 Active 01/27/2018 10:10:15 AM glimepiride 2 mg tablet RxNorm: 905466 TAKE 1 TABLET BY MOUTH ONCE DAILY 01/27/2018 05/25/2018 Inactive Generic For:AMARYL 2MG 01/27/2018 10:09:58 AM Januvia 100 mg tablet RxNorm: 197946 TAKE 1 TABLET BY MOUTH ONCE DAILY 01/20/2018 02/19/2018 Inactive 01/20/2018 9:58:08 AM Alcohol Pads RxNorm: 952117 1 [facility] 01/07/2018 No Stop Date Active amlodipine 5 mg tablet RxNorm: 131748 TAKE ONE TABLET BY MOUTH DAILY 01/06/2018 07/04/2018 Active Generic For:NORVASC 5MG 01/06/2018 10:33:58 AM N O T I C E Last quantity doesn't match original quantity gabapentin 100 mg capsule RxNorm: 060917 TAKE 1 CAPSULE BY MOUTH THREE TIMES DAILY 01/06/2018 04/06/2018 Inactive Generic For:NEURONTIN 100MG 01/06/2018 10:33:55 AM N O T I C E Last quantity doesn't match original quantity Protonix 40 mg tablet,delayed release RxNorm: 768271 TAKE 1 TABLET BY MOUTH EVERY MORNING 12/16/2017 03/12/2018 Inactive Generic For:PROTONIX 40MG Proscar 5 mg tablet RxNorm: 135600 TAKE 1 TABLET BY MOUTH ONCE DAILY 11/04/2017 05/02/2018 Inactive Generic For:PROSCAR 5MG 11/04/2017 9:47:27 AM Aspirin Low Dose 81 mg tablet,delayed release RxNorm: 890581 1 Tablet(s) PO [facility] 10/21/2017 10/15/2018 Active amlodipine 5 mg tablet RxNorm: 715572 TAKE ONE TABLET BY MOUTH DAILY 10/07/2017 01/04/2018 Inactive Generic For:NORVASC 5MG 10/07/2017 9:55:37 AM gabapentin 100 mg capsule RxNorm: 928853 TAKE 1 CAPSULE BY MOUTH THREE TIMES DAILY 10/07/2017 01/04/2018 Inactive Generic For:NEURONTIN 100MG 10/07/2017 9:55:26 AM Januvia 100 mg tablet RxNorm: 211110 TAKE 1 TABLET BY MOUTH ONCE DAILY 09/23/2017 01/19/2018 Inactive 09/23/2017 9:25:24 AM pravastatin 40 mg tablet RxNorm: 130438 TAKE ONE TABLET BY MOUTH EVERY NIGHT AT BEDTIME 09/19/2017 03/12/2018 Inactive Generic For:PRAVACHOL 40MG 09/19/2017 9:12:02 AM Protonix 40 mg tablet,delayed release RxNorm: 992135 TAKE 1 TABLET BY MOUTH EVERY MORNING 09/16/2017 12/15/2017 Inactive Generic For:PROTONIX 40MG 09/16/2017 9:50:22 AM amlodipine 5 mg tablet RxNorm: 196455 TAKE ONE TABLET BY MOUTH DAILY 09/09/2017 10/06/2017 Inactive Generic For:NORVASC 5MG 09/09/2017 9:16:37 AM gabapentin 100 mg capsule RxNorm: 674614 TAKE 1 CAPSULE BY MOUTH THREE TIMES DAILY 09/09/2017 10/06/2017 Inactive Generic For:NEURONTIN 100MG 09/09/2017 9:16:33 AM Vitamin D3 1,000 unit tablet RxNorm: 974114 1 Tablet(s) PO daily 09/04/2017 07/30/2018 Active Vitamin D3 1,000 unit tablet RxNorm: 484382 1 Tablet(s) PO daily 09/03/2017 09/03/2017 Inactive glimepiride 2 mg tablet RxNorm: 817168 TAKE 1 TABLET BY MOUTH ONCE DAILY 09/02/2017 01/26/2018 Inactive Generic For:AMARYL 2MG 09/02/2017 9:35:29 AM Vitamin B-12 1,000 mcg tablet RxNorm: 940840 TAKE 1 TABLET BY MOUTH ONCE DAILY 09/02/2017 01/26/2018 Inactive 09/02/2017 9:35:38 AM pravastatin 40 mg tablet RxNorm: 240632 1 Tablet(s) PO QHS 08/22/2017 08/21/2017 Inactive pravastatin 40 mg tablet RxNorm: 652817 1 Tablet(s) PO QHS 08/22/2017 09/18/2017 Inactive glimepiride 2 mg tablet RxNorm: 476986 1 Tablet(s) PO daily 07/24/2017 09/01/2017 Inactive hydrocodone 5 mg-acetaminophen 325 mg tablet RxNorm: 030237 1-2 Tablet(s) PO Q4H as needed for pain 07/23/2017 08/28/2017 Inactive Proscar 5 mg tablet RxNorm: 183312 1 Tablet(s) PO daily No Start Date 11/03/2017 Inactive Metamucil oral packet RxNorm: 1 packet PO daily No Start Date 07/23/2017 Inactive Vitamin B-12 1,000 mcg tablet RxNorm: 070256 1 Tablet(s) PO daily No Start Date 09/01/2017 Inactive tamsulosin 0.4 mg capsule RxNorm: 364805 1 Capsule(s) PO daily No Start Date 02/11/2018 Inactive Plavix 75 mg tablet RxNorm: 002714 1 Tablet(s) PO QHS No Start Date 02/11/2018 Inactive Alcohol Pads RxNorm: 015338 1 TOP No Start Date 01/06/2018 Inactive Vitamin D3 1,000 unit tablet RxNorm: 773526 1 Tablet(s) PO daily No Start Date 09/02/2017 Inactive gabapentin 100 mg capsule RxNorm: 720540 1 Capsule(s) PO TID No Start Date 09/08/2017 Inactive olanzapine 5 mg tablet RxNorm: 841010 1 Tablet(s) PO QHS No Start Date 07/22/2017 Inactive Lipitor 40 mg tablet RxNorm: 887347 1 Tablet(s) PO QHS No Start Date 08/21/2017 Inactive Januvia 100 mg tablet RxNorm: 179284 1 Tablet(s) PO QHS No Start Date 09/22/2017 Inactive folic acid 1 mg tablet RxNorm: 899092 1 Tablet(s) PO daily No Start Date 07/23/2017 Inactive hydrocodone 5 mg-acetaminophen 325 mg tablet RxNorm: 327186 1 Tablet(s) PO Q4H as needed for pain No Start Date 07/22/2017 Inactive Protonix 40 mg tablet,delayed release RxNorm: 803786 1 Tablet(s) PO daily No Start Date 09/15/2017 Inactive allopurinol 100 mg tablet RxNorm: 357910 1 Tablet(s) PO BID No Start Date 03/19/2018 Inactive amlodipine 5 mg tablet RxNorm: 997434 1 Tablet(s) PO daily No Start Date 09/08/2017 Inactive Aspirin Low Dose 81 mg tablet,delayed release RxNorm: 094275 1 Tablet(s) PO QHS No Start Date 10/20/2017 Inactive Medication Administered No Medication Administered data Immunizations No Immunization data Assessments Condition Codes Effective Dates Type 2 diabetes mellitus with hyperglycemia ICD-10: E11.65 ICD-9: 250.02 02/27/2018 Essential (primary) hypertension ICD-10: I10 ICD-9: 401.1 02/27/2018 Diarrhea, unspecified ICD-10: R19.7 ICD-9: 787.91 02/27/2018 Chronic kidney disease, stage 3 (moderate) ICD-10: N18.3 ICD-9: 585.3 11/28/2017 Cervicalgia ICD-10: M54.2 ICD-9: 723.1 11/28/2017 Foot drop, left foot ICD-10: M21.372 ICD-9: 736.79 08/29/2017 Muscle weakness (generalized) ICD-10: M62.81 ICD-9: 728.87 07/23/2017 Reason For Visit Reason For Visit Effective Dates Notes diabetes mellitus 02/27/2018 diabetes mellitus 11/28/2017 diabetes mellitus 08/29/2017 diabetes mellitus 07/23/2017 Results Observation Observation Code Item Item Code Result Date Cbc With Differential Ord2 WBC 7.42 K/ul [...] 30.6 pg 11/29/2017 Cbc With Differential Ord2 [place]% 8.0 % 11/29/2017 Cbc With Differential Ord2 [...] 1.46 K/ul 11/29/2017 Cbc With Differential Ord2 [place] ABS# 0.6 K/ul 11/29/2017 Cbc With Differential Ord2 Eos ABS# 0.2 K/ul 11/29/2017 Cbc With Differential Ord2 Baso ABS# 0.0 K/ul 11/29/2017 Lipid Ord30 CHOL 115 mg/dL 11/29/2017 Lipid Ord30 HDL 40.0 mg/dl 11/29/2017 Lipid Ord30 TRIG 114 mg/dL 11/29/2017 Lipid Ord30 LDL 52 mg/dL 11/29/2017 Lipid Ord30 C/HDL 2.9 Ratio 11/29/2017 %Hba1C Mcr451 % HbA1c 15553- 6 6.5 % 11/29/2017 %Hba1C Ikz393 Gluc Ave 140 mg/dL 11/29/2017 Comp Metabolic Ndg093 NA 140 mEq/L 11/29/2017 Comp Metabolic Rpv424 K 3.6 mEq/L 11/29/2017 Comp Metabolic Ead934 CL 106 mEq/L 11/29/2017 Comp Metabolic Qwg018 CO2 24.0 mEq/L 11/29/2017 Comp Metabolic Bws063 ANION GAP 14 11/29/2017 Comp Metabolic Mcf370 GLUCOSE 151 mg/dL 11/29/2017 Comp Metabolic Xwi167 Creat 1.2 mg/dL 11/29/2017 Comp Metabolic Uio618 eGFR 61 ml/min/1.73m2 11/29/2017 Comp Metabolic Dxr039 BUN 34 mg/dL 11/29/2017 Comp Metabolic Fpn935 B/C Ratio 28.3 Ratio 11/29/2017 Comp Metabolic Nmu031 CALCIUM 8.9 mg/dL 11/29/2017 Comp Metabolic Zcf533 ALK PHOS 69 U/L 11/29/2017 Comp Metabolic Qrz977 AST(SGOT) 13 U/L 11/29/2017 Comp Metabolic Tiy588 ALT(SGPT) 16 U/L 11/29/2017 Comp Metabolic Kvy129 BILI T 0.7 mg/dL 11/29/2017 Comp Metabolic Xkw580 ALBUMIN 3.5 g/dL 11/29/2017 Comp Metabolic Xzs493 TPRO 5.7 g/dL 11/29/2017 Comp Metabolic Vzt596 GLOB 2.2 g/dL 11/29/2017 Comp Metabolic Tnq202 A/G Ratio 1.6 Ratio 11/29/2017 Comp Metabolic Cvt303 Osmo 290 mOsmo 11/29/2017 Review of Systems System Result Effective Dates Constitutional No recent illness 02/27/2018 Constitutional No [...] No Procedures data Vital Signs Date Vital 02/27/2018 Blood Pressure 1: 130/64 Code: 8480-6 Heart Rate 1: 90 bpm Height: 5'7" SpO2: 97% Weight: 11/28/2017 Blood Pressure 1: 118/70 Code: 8480-6 Heart Rate 1: 75 bpm Height: 5'7" SpO2: 97% Weight: 08/29/2017 Blood Pressure 1: 128/68 Code: 8480-6 Heart Rate 1: 72 bpm Height: 5'7" SpO2: 98% Weight: 07/23/2017 Blood Pressure 1: 138/76 Code: 8480-6 BMI: 33.2 Code: 61413-7 Heart Rate 1: 83 bpm Height: 5'7" SpO2: 98% Weight: 212 lbs Functional Status No Functional Status data History of Present Illness Symptom Name Status Result Effective Date Notes Quality non-insulin dependent 02/27/2018 None Alleviating Factors [...] data Encounters Encounter Performer Location Codes Date ([id number]) [id number] EST. PATIENT, LEVEL IV Diagnosis: Type 2 diabetes mellitus with hyperglycemia[ICD10: E11.65] Diagnosis: Essential (primary) hypertension[ICD10: I10] Diagnosis: Diarrhea, unspecified[ICD10: R19.7] Geneva Spaulding MD, [facility] CPT-4: 58609 02/27/2018 ([id number]) [id number] EST. PATIENT, LEVEL IV Diagnosis: Essential (primary) hypertension[ICD10: I10] Diagnosis: Type 2 diabetes mellitus with hyperglycemia[ICD10: E11.65] Diagnosis: Chronic kidney disease, stage 3 (moderate)[ICD10: N18.3] Diagnosis: Cervicalgia[ICD10: M54.2] Geneva Spaulding MD, [facility] CPT-4: 16726 11/28/2017 [id number] [id number] EST. PATIENT, LEVEL III Diagnosis: Essential (primary) hypertension[ICD10: I10] Diagnosis: Type 2 diabetes mellitus with hyperglycemia[ICD10: E11.65] Diagnosis: Foot drop, left foot[ICD10: M21.372] Geneva Spaulding MD, [facility] CPT-4: 74390 08/29/2017 OFFICE VISIT, NEW - LEVEL 4 Diagnosis: Essential (primary) hypertension[ICD10: I10] Diagnosis: Type 2 diabetes mellitus with hyperglycemia[ICD10: E11.65] Diagnosis: Chronic kidney disease, stage 3 (moderate)[ICD10: N18.3] Diagnosis: Muscle weakness (generalized)[ICD10: M62.81] Geneva Spaulding MD, [facility] CPT-4: 91296 07/23/2017 Plan of Care Planned Activity Notes [...] change in blood pressure readings at home. Hzhcaikl-jskqjskdayuz-ewezn probiotics as directed 02/27/2018 Appointment: Geneva Case WPtel: [address] [place], [place] [phone] (15 min) Moderate 02/27/2018 Patient Education: Patient [...] disease-check labs 11/28/2017 App[facility]ment: Geneva [phone] (15 min) Moderate 11/28/2017 Patient Education: [...] safer ambulation. 08/29/2017 Appointment: Geneva Case WPtel: [address] [place], [place] [phone] [place] [address] (15 min) Moderate 08/29/2017 Patient Education: Patient [...] are starting to become less controlled. Generalized ykgmqafq-dflwscmpx-cikwkgiu PT- plan to move back to [place] when able 07/23/2017 Appointment: Geneva Case WPtel: [address] [place], [place] [phone] [place] [address] New Patient 07/23/2017 Patient Education: Patient Medication [...] are starting to become less controlled. Generalized qdwionas-qdmibmicj-duwdlqql PT-plan to move back to [place] when able PROBIOTIC BID X 1 WEEK THEN DAILY [...] change in blood pressure readings at home. Kvoswale-rxfphbjsxxga-yijjd probiotics as directed . Hypertension - well [...]
--- OUTSIDE RECORDS SUMMARY | 2018-08-21 10:31 | XMS REPORT | CCD ---
Author Author Geneva Case MD, [facility] Address [address] [place] [address] Phone Care Team Providers Care Ditcher Name Role Phone PP Unavailable CCM Unavailable Summary Purpose Interface Exchange Insurance Providers Payer name Policy type / Coverage type Covered alliance party ID Effective Begin Date Effective End Date WPS Medicare Part B Medicare Part B [id number] 2017 Unknown Conduit Medicare Part B [id number] Unknown Family history Mother Diagnosis Age At Onset No Known Diseases N/A Father Diagnosis Age At Onset No Known Diseases N/A Social History Social History Element Codes Description Effective Dates Living arrangements Unknown Assisted Living [facility] 11/28/2017 Marital status Unknown 07/23/2017 Employment Unknown [...] Fill Instructions glimepiride 2 mg tablet RxNorm: 996031 TAKE 1 TABLET BY MOUTH ONCE DAILY 05/26/2018 04/20/2019 Active Generic For:AMARYL 2MG 05/26/2018 1:31:32 PM Floranex 100 million cell oral granules in packet RxNorm: 1 Tablet(s) PO daily 05/23/2018 09/19/2018 Active Floranex 100 million cell oral granules in packet RxNorm: 1 Tablet(s) PO daily 05/23/2018 05/22/2018 Inactive Proscar 5 mg tablet RxNorm: 412119 TAKE 1 TABLET BY MOUTH ONCE DAILY 05/05/2018 10/31/2018 Active Generic For:PROSCAR 5MG 05/05/2018 9:23:48 AM gabapentin 100 mg capsule RxNorm: 140159 TAKE 1 CAPSULE BY MOUTH THREE TIMES DAILY 04/07/2018 09/03/2018 Active Generic For:NEURONTIN 100MG 04/07/2018 10:37:42 AM allopurinol 100 mg tablet RxNorm: 246712 TAKE 1 TABLET BY MOUTH TWICE DAILY 03/20/2018 09/15/2018 Active 03/19/2018 9:53:25 AM Protonix 40 mg tablet,delayed release RxNorm: 406346 TAKE 1 TABLET BY MOUTH EVERY MORNING 03/13/2018 07/10/2018 Active Generic For:PROTONIX 40MG 03/13/2018 9:02:28 AM N O T I C E Last quantity doesn't match original quantity pravastatin 40 mg tablet RxNorm: 194819 TAKE ONE TABLET BY MOUTH EVERY NIGHT AT BEDTIME 03/13/2018 09/08/2018 Active Generic For:PRAVACHOL 40MG 03/13/2018 9:02:23 AM N O T I C E Last quantity doesn't match original quantity tamsulosin 0.4 mg capsule RxNorm: 005557 TAKE 1 CAPSULE BY MOUTH ONCE DAILY 03/10/2018 08/06/2018 Active Generic For:FLOMAX 0.4MG 03/10/2018 10:12:59 AM Plavix 75 mg tablet RxNorm: 356489 TAKE 1 TABLET BY MOUTH ONCE DAILY 03/10/2018 10/05/2018 Active Generic For:*PLAVIX 75MG 03/10/2018 10:12:55 AM Jardiance 10 mg tablet RxNorm: 4411063 1 Tablet(s) PO daily 02/20/2018 08/18/2018 Active Jardiance 10 mg tablet RxNorm: 9424800 1 Tablet(s) PO daily 02/20/2018 02/19/2018 Inactive Plavix 75 mg tablet RxNorm: 433577 1 Tablet(s) PO QHS 02/12/2018 03/09/2018 Inactive tamsulosin 0.4 mg capsule RxNorm: 040757 1 Capsule(s) PO daily 02/12/2018 03/09/2018 Inactive Tylenol 325 mg tablet RxNorm: 392766 1 Tablet(s) PO QHS and every 6 hours prn 02/03/2018 06/02/2018 Active loperamide 2 mg tablet RxNorm: 543684 2 after 1st stool & 1 after each add/max 4 in 24 hours Tablet(s) PO 02/03/2018 06/02/2018 Active Tylenol 325 mg tablet RxNorm: 667433 1 Tablet(s) PO QHS and every 6 hours prn 02/03/2018 02/02/2018 Inactive loperamide 2 mg tablet RxNorm: 042872 2 after 1st stool & 1 after each add/max 4 in 24 hours Tablet(s) PO 02/03/2018 02/02/2018 Inactive Vitamin B-12 1,000 mcg tablet RxNorm: 728595 TAKE 1 TABLET BY MOUTH ONCE DAILY 01/27/2018 12/22/2018 Active 01/27/2018 10:10:15 AM glimepiride 2 mg tablet RxNorm: 999871 TAKE 1 TABLET BY MOUTH ONCE DAILY 01/27/2018 05/25/2018 Inactive Generic For:AMARYL 2MG 01/27/2018 10:09:58 AM Januvia 100 mg tablet RxNorm: 926156 TAKE 1 TABLET BY MOUTH ONCE DAILY 01/20/2018 02/19/2018 Inactive 01/20/2018 9:58:08 AM Alcohol Pads RxNorm: 778794 1 [facility] 01/07/2018 No Stop Date Active amlodipine 5 mg tablet RxNorm: 387266 TAKE ONE TABLET BY MOUTH DAILY 01/06/2018 07/04/2018 Active Generic For:NORVASC 5MG 01/06/2018 10:33:58 AM N O T I C E Last quantity doesn't match original quantity gabapentin 100 mg capsule RxNorm: 692978 TAKE 1 CAPSULE BY MOUTH THREE TIMES DAILY 01/06/2018 04/06/2018 Inactive Generic For:NEURONTIN 100MG 01/06/2018 10:33:55 AM N O T I C E Last quantity doesn't match original quantity Protonix 40 mg tablet,delayed release RxNorm: 324685 TAKE 1 TABLET BY MOUTH EVERY MORNING 12/16/2017 03/12/2018 Inactive Generic For:PROTONIX 40MG Proscar 5 mg tablet RxNorm: 226740 TAKE 1 TABLET BY MOUTH ONCE DAILY 11/04/2017 05/02/2018 Inactive Generic For:PROSCAR 5MG 11/04/2017 9:47:27 AM Aspirin Low Dose 81 mg tablet,delayed release RxNorm: 893349 1 Tablet(s) PO Q 10/21/2017 10/15/2018 Active amlodipine 5 mg tablet RxNorm: 461350 TAKE ONE TABLET BY MOUTH DAILY 10/07/2017 01/04/2018 Inactive Generic For:NORVASC 5MG 10/07/2017 9:55:37 AM gabapentin 100 mg capsule RxNorm: 663483 TAKE 1 CAPSULE BY MOUTH THREE TIMES DAILY 10/07/2017 01/04/2018 Inactive Generic For:NEURONTIN 100MG 10/07/2017 9:55:26 AM Januvia 100 mg tablet RxNorm: 593825 TAKE 1 TABLET BY MOUTH ONCE DAILY 09/23/2017 01/19/2018 Inactive 09/23/2017 9:25:24 AM pravastatin 40 mg tablet RxNorm: 101820 TAKE ONE TABLET BY MOUTH EVERY NIGHT AT BEDTIME 09/19/2017 03/12/2018 Inactive Generic For:PRAVACHOL 40MG 09/19/2017 9:12:02 AM Protonix 40 mg tablet,delayed release RxNorm: 405635 TAKE 1 TABLET BY MOUTH EVERY MORNING 09/16/2017 12/15/2017 Inactive Generic For:PROTONIX 40MG 09/16/2017 9:50:22 AM amlodipine 5 mg tablet RxNorm: 769239 TAKE ONE TABLET BY MOUTH DAILY 09/09/2017 10/06/2017 Inactive Generic For:NORVASC 5MG 09/09/2017 9:16:37 AM gabapentin 100 mg capsule RxNorm: 803140 TAKE 1 CAPSULE BY MOUTH THREE TIMES DAILY 09/09/2017 10/06/2017 Inactive Generic For:NEURONTIN 100MG 09/09/2017 9:16:33 AM Vitamin D3 1,000 unit tablet RxNorm: 274726 1 Tablet(s) PO daily 09/04/2017 07/30/2018 Active Vitamin D3 1,000 unit tablet RxNorm: 844200 1 Tablet(s) PO daily 09/03/2017 09/03/2017 Inactive glimepiride 2 mg tablet RxNorm: 780672 TAKE 1 TABLET BY MOUTH ONCE DAILY 09/02/2017 01/26/2018 Inactive Generic For:AMARYL 2MG 09/02/2017 9:35:29 AM Vitamin B-12 1,000 mcg tablet RxNorm: 385575 TAKE 1 TABLET BY MOUTH ONCE DAILY 09/02/2017 01/26/2018 Inactive 09/02/2017 9:35:38 AM pravastatin 40 mg tablet RxNorm: 191854 1 Tablet(s) PO QHS 08/22/2017 08/21/2017 Inactive pravastatin 40 mg tablet RxNorm: 091168 1 Tablet(s) PO QHS 08/22/2017 09/18/2017 Inactive glimepiride 2 mg tablet RxNorm: 548346 1 Tablet(s) PO daily 07/24/2017 09/01/2017 Inactive hydrocodone 5 mg-acetaminophen 325 mg tablet RxNorm: 045111 1-2 Tablet(s) PO Q4H as needed for pain 07/23/2017 08/28/2017 Inactive Proscar 5 mg tablet RxNorm: 094549 1 Tablet(s) PO daily No Start Date 11/03/2017 Inactive Metamucil oral packet RxNorm: 1 packet PO daily No Start Date 07/23/2017 Inactive Vitamin B-12 1,000 mcg tablet RxNorm: 074494 1 Tablet(s) PO daily No Start Date 09/01/2017 Inactive tamsulosin 0.4 mg capsule RxNorm: 664955 1 Capsule(s) PO daily No Start Date 02/11/2018 Inactive Plavix 75 mg tablet RxNorm: 171579 1 Tablet(s) PO QHS No Start Date 02/11/2018 Inactive Alcohol Pads RxNorm: 179780 1 TOP UD No Start Date 01/06/2018 Inactive Vitamin D3 1,000 unit tablet RxNorm: 569485 1 Tablet(s) PO daily No Start Date 09/02/2017 Inactive gabapentin 100 mg capsule RxNorm: 646466 1 Capsule(s) PO TID No Start Date 09/08/2017 Inactive olanzapine 5 mg tablet RxNorm: 245363 1 Tablet(s) PO QHS No Start Date 07/22/2017 Inactive Lipitor 40 mg tablet RxNorm: 576496 1 Tablet(s) PO QHS No Start Date 08/21/2017 Inactive Januvia 100 mg tablet RxNorm: 772821 1 Tablet(s) PO QHS No Start Date 09/22/2017 Inactive folic acid 1 mg tablet RxNorm: 973212 1 Tablet(s) PO daily No Start Date 07/23/2017 Inactive hydrocodone 5 mg-acetaminophen 325 mg tablet RxNorm: 739351 1 Tablet(s) PO Q4H as needed for pain No Start Date 07/22/2017 Inactive Protonix 40 mg tablet,delayed release RxNorm: 375913 1 Tablet(s) PO daily No Start Date 09/15/2017 Inactive allopurinol 100 mg tablet RxNorm: 118666 1 Tablet(s) PO BID No Start Date 03/19/2018 Inactive amlodipine 5 mg tablet RxNorm: 219358 1 Tablet(s) PO daily No Start Date 09/08/2017 Inactive Aspirin Low Dose 81 mg tablet,delayed release RxNorm: 311044 1 Tablet(s) PO QHS No Start Date [...] Observation Code Item Item Code Result Date Comp Metabolic Nzy542 NA 139 mEq/L 05/29/2018 Comp Metabolic Kpn128 K 4.1 mEq/L 05/29/2018 Comp Metabolic Rka756 CL 109 mEq/L 05/29/2018 Comp Metabolic Yeq673 CO2 23.0 mEq/L 05/29/2018 Comp Metabolic Cxs529 ANION GAP 11 05/29/2018 Comp Metabolic Hey884 GLUCOSE 164 mg/dL 05/29/2018 Comp Metabolic Oeq404 Creat 1.4 mg/dL 05/29/2018 Comp Metabolic Xvu245 eGFR 50 ml/min/1.73m2 05/29/2018 Comp Metabolic Mqm305 BUN 30 mg/dL 05/29/2018 Comp Metabolic Jlx906 B/C Ratio 21.0 Ratio 05/29/2018 Comp Metabolic Crp264 CALCIUM 9.2 mg/dL 05/29/2018 Comp Metabolic Tgw668 ALK PHOS 55 U/L 05/29/2018 Comp Metabolic Dvb506 AST(SGOT) 11 U/L 05/29/2018 Comp Metabolic Exx916 ALT(SGPT) 15 U/L 05/29/2018 Comp Metabolic Zlt639 BILI T 0.8 mg/dL 05/29/2018 Comp Metabolic Kic804 ALBUMIN 4.0 g/dL 05/29/2018 Comp Metabolic Our463 TPRO 6.3 g/dL 05/29/2018 Comp Metabolic Inq644 GLOB 2.4 g/dL 05/29/2018 Comp Metabolic Ejf726 A/G Ratio 1.7 Ratio 05/29/2018 Comp Metabolic Dys304 Osmo 287 mOsmo 05/29/2018 Cbc With Differential Ord2 WBC 7.42 K/ul 05/29/2018 Cbc With Differential Ord2 RBC 4.12 M/ul 05/29/2018 Cbc With Differential Ord2 HGB 12.8 g/dl 05/29/2018 Cbc With Differential Ord2 HCT 38.9 % 05/29/2018 Cbc With Differential Ord2 Neut% 61.3 % 05/29/2018 Cbc With Differential Ord2 MCV 94.4 fl 05/29/2018 Cbc With Differential Ord2 Lymph% 25.6 % 05/29/2018 Cbc With Differential Ord2 MCH 31.1 pg 05/29/2018 Cbc With Differential Ord2 [place]% 8.9 % 05/29/2018 Cbc With Differential Ord2 [...] 1.90 K/ul 05/29/2018 Cbc With Differential Ord2 [place] ABS# 0.7 K/ul 05/29/2018 Cbc With Differential [...] 30.6 pg 11/29/2017 Cbc With Differential Ord2 [place]% 8.0 % 11/29/2017 Cbc With Differential Ord2 [...] 1.46 K/ul 11/29/2017 Cbc With Differential Ord2 [place] ABS# 0.6 K/ul 11/29/2017 Cbc With Differential Ord2 Eos ABS# 0.2 K/ul 11/29/2017 Cbc With Differential Ord2 Baso ABS# 0.0 K/ul 11/29/2017 Lipid Ord30 CHOL 115 mg/dL 11/29/2017 Lipid Ord30 HDL 40.0 mg/dl 11/29/2017 Lipid Ord30 TRIG 114 mg/dL 11/29/2017 Lipid Ord30 LDL 52 mg/dL 11/29/2017 Lipid Ord30 C/HDL 2.9 Ratio 11/29/2017 %Hba1C Ghc260 % HbA1c 71927- 6 6.5 % 11/29/2017 %Hba1C Glv174 Gluc Ave 140 mg/dL 11/29/2017 Comp Metabolic Exe053 NA 140 mEq/L 11/29/2017 Comp Metabolic Kvb880 K 3.6 mEq/L 11/29/2017 Comp Metabolic Sux331 CL 106 mEq/L 11/29/2017 Comp Metabolic Luu010 CO2 24.0 mEq/L 11/29/2017 Comp Metabolic Cls963 ANION GAP 14 11/29/2017 Comp Metabolic His585 GLUCOSE 151 mg/dL 11/29/2017 Comp Metabolic Sqo365 Creat 1.2 mg/dL 11/29/2017 Comp Metabolic Pqv410 eGFR 61 ml/min/1.73m2 11/29/2017 Comp Metabolic Iwb493 BUN 34 mg/dL 11/29/2017 Comp Metabolic Aof280 B/C Ratio 28.3 Ratio 11/29/2017 Comp Metabolic Vmv928 CALCIUM 8.9 mg/dL 11/29/2017 Comp Metabolic Sdv247 ALK PHOS 69 U/L 11/29/2017 Comp Metabolic Oyz352 AST(SGOT) 13 U/L 11/29/2017 Comp Metabolic Xdv698 ALT(SGPT) 16 U/L 11/29/2017 Comp Metabolic Rvt244 BILI T 0.7 mg/dL 11/29/2017 Comp Metabolic Wth892 ALBUMIN 3.5 g/dL 11/29/2017 Comp Metabolic Ueb891 TPRO 5.7 g/dL 11/29/2017 Comp Metabolic Yge083 GLOB 2.2 g/dL 11/29/2017 Comp Metabolic Gpo761 A/G Ratio 1.6 Ratio 11/29/2017 Comp Metabolic Itl487 Osmo 290 mOsmo 11/29/2017 Review of Systems [...] 1: 112/68 Code: 8480-6 BMI: 33.4 Code: 07759-5 Heart Rate 1: 100 bpm Height: 5'7" [...] 1: 138/76 Code: 8480-6 BMI: 33.2 Code: 92432-5 Heart Rate 1: 83 bpm Height: 5'7" [...] data Encounters Encounter Performer Location Codes Date ([id number]) [id number] EST. PATIENT, LEVEL IV Diagnosis: Type 2 diabetes mellitus with hyperglycemia[ICD10: E11.65] Diagnosis: Essential (primary) hypertension[ICD10: I10] Diagnosis: Chronic kidney disease, stage 3 (moderate)[ICD10: N18.3] Diagnosis: Primary generalized (osteo)arthritis[ICD10: M15.0] Geneva Spaulding MD, [facility] CPT-4: 46329 05/29/2018 [id number]) [id number] EST. PATIENT, LEVEL IV Diagnosis: Type 2 diabetes mellitus with hyperglycemia[ICD10: E11.65] Diagnosis: Essential (primary) hypertension[ICD10: I10] Diagnosis: Diarrhea, unspecified[ICD10: R19.7] Geneva Spaulding MD, [facility] CPT-4: 10835 02/27/2018 ([id number]) [id number] EST. PATIENT, LEVEL IV Diagnosis: Essential (primary) hypertension[ICD10: I10] Diagnosis: Type 2 diabetes mellitus with hyperglycemia[ICD10: E11.65] Diagnosis: Chronic kidney disease, stage 3 (moderate)[ICD10: N18.3] Diagnosis: Cervicalgia[ICD10: M54.2] Geneva Spaulding MD, [facility] CPT-4: 42420 11/28/2017 ([id number]) [id number] EST. PATIENT, LEVEL III Diagnosis: Essential (primary) hypertension[ICD10: I10] Diagnosis: Type 2 diabetes mellitus with hyperglycemia[ICD10: E11.65] Diagnosis: Foot drop, left foot[ICD10: M21.372] Geneva Spaulding MD, [facility] CPT-4: 19617 08/29/2017 OFFICE VISIT, NEW - LEVEL 4 Diagnosis: Essential (primary) hypertension[ICD10: I10] Diagnosis: Type 2 diabetes mellitus with hyperglycemia[ICD10: E11.65] Diagnosis: Chronic kidney disease, stage 3 (moderate)[ICD10: N18.3] Diagnosis: Muscle weakness (generalized)[ICD10: M62.81] Geneva Spaulding MD, [facility] CPT-4: 64816 07/23/2017 Plan of Care Planned Activity Notes [...] directed-call if pain uncontrolled CKD-check labs 05/29/2018 Patient Education: Patient Medication Summary Completed 05/29/2018 Patient Education: Diabetes Completed 05/29/2018 Care Plan: %Hba1C LOINC : 10780-6 Pending 05/29/2018 Visit Plan: Diabetes Mellitus - controlled [...] change in blood pressure readings at home. Yggaembq-xgqhroydzrfr-nreig probiotics as directed 02/27/2018 Appointment: Geneva Case WPtel: [address] [place], [place] [phone] (15 min) Moderate 02/27/2018 Patient Education: Patient [...] disease-check labs 11/28/2017 Appointment: Geneva Case WPtel: [phone] (15 min) Moderate 11/28/2017 Patient Education: Patient [...] Geneva Case WPtel: [facility] [place] [address] (15 min) Moderate 08/29/2017 Patient Education: Patient [...] are starting to become less controlled. Generalized kiynfdqd-qwrzjketp-peaxehdy PT- plan to move back to [place] when able 07/23/2017 Appointment: eGneva Case WPtel: [address] [place], [place] [phone] [place] [address] New Patient 07/23/2017 Patient Education: Patient Medication [...] are starting to become less controlled. Generalized uxpcpkma-xslrlhpij-luwsjlnm PT-plan to move back to [place] when able SCHEDULE TYLENOL TWICE DAILY AND [...] change in blood pressure readings at home. Bkpxajpy-cnwplumugrny-yqydn probiotics as directed . Hypertension - well [...]
--- OUTSIDE RECORDS SUMMARY | 2018-08-21 10:32 | XMS REPORT | CCD ---
Author Author Geneva Case MD, [facility] Address [address] [place] [address] Phone Care Team Providers Care Coiled Coil Inspector Name Role Phone PP Unavailable CCM Unavailable Summary Purpose Interface Exchange Insurance Providers Payer name Policy type / Coverage type Covered constitution party ID Effective Begin Date Effective End Date WPS Medicare Part B Medicare Part B [id number] Unknown [employer] Medicare Part B [id number] Unknown Family history Mother Diagnosis Age At Onset No Known Diseases N/A Father Diagnosis Age At Onset No Known Diseases N/A Social History Social History Element Codes Description Effective Dates Living arrangements Unknown Assisted Living [place] 11/28/2017 Marital status Unknown 07/23/2017 Employment Unknown [...] Start Date Stop Date Status Fill Instructions Floranex 100 million cell oral granules in packet RxNorm: 1 Tablet(s) PO daily 05/23/2018 09/19/2018 Active Floranex 100 million cell oral granules in packet RxNorm: 1 Tablet(s) PO daily 05/23/2018 05/22/2018 Inactive Proscar 5 mg tablet RxNorm: 247925 TAKE 1 TABLET BY MOUTH ONCE DAILY 05/05/2018 10/31/2018 Active Generic For:PROSCAR 5MG 05/05/2018 9:23:48 AM gabapentin 100 mg capsule RxNorm: 487944 TAKE 1 CAPSULE BY MOUTH THREE TIMES DAILY 04/07/2018 09/03/2018 Active Generic For:NEURONTIN 100MG 04/07/2018 10:37:42 AM allopurinol 100 mg tablet RxNorm: 299879 TAKE 1 TABLET BY MOUTH TWICE DAILY 03/20/2018 09/15/2018 Active 03/19/2018 9:53:25 AM Protonix 40 mg tablet,delayed release RxNorm: 115730 TAKE 1 TABLET BY MOUTH EVERY MORNING 03/13/2018 07/10/2018 Active Generic For:PROTONIX 40MG 03/13/2018 9:02:28 AM N O T I C E Last quantity doesn't match original quantity pravastatin 40 mg tablet RxNorm: 308765 TAKE ONE TABLET BY MOUTH EVERY NIGHT AT BEDTIME 03/13/2018 09/08/2018 Active Generic For:PRAVACHOL 40MG 03/13/2018 9:02:23 AM N O T I C E Last quantity doesn't match original quantity tamsulosin 0.4 mg capsule RxNorm: 247707 TAKE 1 CAPSULE BY MOUTH ONCE DAILY 03/10/2018 08/06/2018 Active Generic For:FLOMAX 0.4MG 03/10/2018 10:12:59 AM Plavix 75 mg tablet RxNorm: 153568 TAKE 1 TABLET BY MOUTH ONCE DAILY 03/10/2018 10/05/2018 Active Generic For:*PLAVIX 75MG 03/10/2018 10:12:55 AM Jardiance 10 mg tablet RxNorm: 7759474 1 Tablet(s) PO daily 02/20/2018 08/18/2018 Active Jardiance 10 mg tablet RxNorm: 5218699 1 Tablet(s) PO daily 02/20/2018 02/19/2018 Inactive Plavix 75 mg tablet RxNorm: 233991 1 Tablet(s) PO QHS 02/12/2018 03/09/2018 Inactive tamsulosin 0.4 mg capsule RxNorm: 336839 1 Capsule(s) PO daily 02/12/2018 03/09/2018 Inactive Tylenol 325 mg tablet RxNorm: 169739 1 Tablet(s) PO QHS and every 6 hours prn 02/03/2018 06/02/2018 Active loperamide 2 mg tablet RxNorm: 645874 2 after 1st stool & 1 after each add/max 4 in 24 hours Tablet(s) PO 02/03/2018 06/02/2018 Active Tylenol 325 mg tablet RxNorm: 699421 1 Tablet(s) PO QHS and every 6 hours prn 02/03/2018 02/02/2018 Inactive loperamide 2 mg tablet RxNorm: 051773 2 after 1st stool & 1 after each add/max 4 in 24 hours Tablet(s) PO 02/03/2018 02/02/2018 Inactive Vitamin B-12 1,000 mcg tablet RxNorm: 624659 TAKE 1 TABLET BY MOUTH ONCE DAILY 01/27/2018 12/22/2018 Active 01/27/2018 10:10:15 AM glimepiride 2 mg tablet RxNorm: 375861 TAKE 1 TABLET BY MOUTH ONCE DAILY 01/27/2018 07/25/2018 Active Generic For:AMARYL 2MG 01/27/2018 10:09:58 AM Januvia 100 mg tablet RxNorm: 861117 TAKE 1 TABLET BY MOUTH ONCE DAILY 01/20/2018 02/19/2018 Inactive 01/20/2018 9:58:08 AM Alcohol Pads RxNorm: 201014 1 TOP 01/07/2018 No Stop Date Active amlodipine 5 mg tablet RxNorm: 075612 TAKE ONE TABLET BY MOUTH DAILY 01/06/2018 07/04/2018 Active Generic For:NORVASC 5MG 01/06/2018 10:33:58 AM N O T I C E Last quantity doesn't match original quantity gabapentin 100 mg capsule RxNorm: 300117 TAKE 1 CAPSULE BY MOUTH THREE TIMES DAILY 01/06/2018 04/06/2018 Inactive Generic For:NEURONTIN 100MG 01/06/2018 10:33:55 AM N O T I C E Last quantity doesn't match original quantity Protonix 40 mg tablet,delayed release RxNorm: 283384 TAKE 1 TABLET BY MOUTH EVERY MORNING 12/16/2017 03/12/2018 Inactive Generic For:PROTONIX 40MG Proscar 5 mg tablet RxNorm: 944114 TAKE 1 TABLET BY MOUTH ONCE DAILY 11/04/2017 05/02/2018 Inactive Generic For:PROSCAR 5MG 11/04/2017 9:47:27 AM Aspirin Low Dose 81 mg tablet,delayed release RxNorm: 824702 1 Tablet(s) PO QHS 10/21/2017 10/15/2018 Active amlodipine 5 mg tablet RxNorm: 892206 TAKE ONE TABLET BY MOUTH DAILY 10/07/2017 01/04/2018 Inactive Generic For:NORVASC 5MG 10/07/2017 9:55:37 AM gabapentin 100 mg capsule RxNorm: 868226 TAKE 1 CAPSULE BY MOUTH THREE TIMES DAILY 10/07/2017 01/04/2018 Inactive Generic For:NEURONTIN 100MG 10/07/2017 9:55:26 AM Januvia 100 mg tablet RxNorm: 708104 TAKE 1 TABLET BY MOUTH ONCE DAILY 09/23/2017 01/19/2018 Inactive 09/23/2017 9:25:24 AM pravastatin 40 mg tablet RxNorm: 063117 TAKE ONE TABLET BY MOUTH EVERY NIGHT AT BEDTIME 09/19/2017 03/12/2018 Inactive Generic For:PRAVACHOL 40MG 09/19/2017 9:12:02 AM Protonix 40 mg tablet,delayed release RxNorm: 660483 TAKE 1 TABLET BY MOUTH EVERY MORNING 09/16/2017 12/15/2017 Inactive Generic For:PROTONIX 40MG 09/16/2017 9:50:22 AM amlodipine 5 mg tablet RxNorm: 427274 TAKE ONE TABLET BY MOUTH DAILY 09/09/2017 10/06/2017 Inactive Generic For:NORVASC 5MG 09/09/2017 9:16:37 AM gabapentin 100 mg capsule RxNorm: 958807 TAKE 1 CAPSULE BY MOUTH THREE TIMES DAILY 09/09/2017 10/06/2017 Inactive Generic For:NEURONTIN 100MG 09/09/2017 9:16:33 AM Vitamin D3 1,000 unit tablet RxNorm: 451556 1 Tablet(s) PO daily 09/04/2017 07/30/2018 Active Vitamin D3 1,000 unit tablet RxNorm: 904793 1 Tablet(s) PO daily 09/03/2017 09/03/2017 Inactive glimepiride 2 mg tablet RxNorm: 859727 TAKE 1 TABLET BY MOUTH ONCE DAILY 09/02/2017 01/26/2018 Inactive Generic For:AMARYL 2MG 09/02/2017 9:35:29 AM Vitamin B-12 1,000 mcg tablet RxNorm: 684752 TAKE 1 TABLET BY MOUTH ONCE DAILY 09/02/2017 01/26/2018 Inactive 09/02/2017 9:35:38 AM pravastatin 40 mg tablet RxNorm: 272182 1 Tablet(s) PO QHS 08/22/2017 08/21/2017 Inactive pravastatin 40 mg tablet RxNorm: 567857 1 Tablet(s) PO QHS 08/22/2017 09/18/2017 Inactive glimepiride 2 mg tablet RxNorm: 589528 1 Tablet(s) PO daily 07/24/2017 09/01/2017 Inactive hydrocodone 5 mg-acetaminophen 325 mg tablet RxNorm: 623891 1-2 Tablet(s) PO Q4H as needed for pain 07/23/2017 08/28/2017 Inactive Proscar 5 mg tablet RxNorm: 687623 1 Tablet(s) PO daily No Start Date 11/03/2017 Inactive Metamucil oral packet RxNorm: 1 packet PO daily No Start Date 07/23/2017 Inactive Vitamin B-12 1,000 mcg tablet RxNorm: 420650 1 Tablet(s) PO daily No Start Date 09/01/2017 Inactive tamsulosin 0.4 mg capsule RxNorm: 415018 1 Capsule(s) PO daily No Start Date 02/11/2018 Inactive Plavix 75 mg tablet RxNorm: 427722 1 Tablet(s) PO QHS No Start Date 02/11/2018 Inactive Alcohol Pads RxNorm: 057153 1 TOP UD No Start Date 01/06/2018 Inactive Vitamin D3 1,000 unit tablet RxNorm: 887304 1 Tablet(s) PO daily No Start Date 09/02/2017 Inactive gabapentin 100 mg capsule RxNorm: 451855 1 Capsule(s) PO TID No Start Date 09/08/2017 Inactive olanzapine 5 mg tablet RxNorm: 851304 1 Tablet(s) PO QHS No Start Date 07/22/2017 Inactive Lipitor 40 mg tablet RxNorm: 172426 1 Tablet(s) PO QHS No Start Date 08/21/2017 Inactive Januvia 100 mg tablet RxNorm: 002306 1 Tablet(s) PO QHS No Start Date 09/22/2017 Inactive folic acid 1 mg tablet RxNorm: 053703 1 Tablet(s) PO daily No Start Date 07/23/2017 Inactive hydrocodone 5 mg-acetaminophen 325 mg tablet RxNorm: 240801 1 Tablet(s) PO Q4H as needed for pain No Start Date 07/22/2017 Inactive Protonix 40 mg tablet,delayed release RxNorm: 743443 1 Tablet(s) PO daily No Start Date 09/15/2017 Inactive allopurinol 100 mg tablet RxNorm: 896775 1 Tablet(s) PO BID No Start Date 03/19/2018 Inactive amlodipine 5 mg tablet RxNorm: 825268 1 Tablet(s) PO daily No Start Date 09/08/2017 Inactive Aspirin Low Dose 81 mg tablet,delayed release RxNorm: 966928 1 Tablet(s) PO QHS No Start Date [...] 30.6 pg 11/29/2017 Cbc With Differential Ord2 Starr% 8.0 % 11/29/2017 Cbc With Differential Ord2 [...] 1.46 K/ul 11/29/2017 Cbc With Differential Ord2 Starr ABS# 0.6 K/ul 11/29/2017 Cbc With Differential Ord2 Eos ABS# 0.2 K/ul 11/29/2017 Cbc With Differential Ord2 Baso ABS# 0.0 K/ul 11/29/2017 Lipid Ord30 CHOL 115 mg/dL 11/29/2017 Lipid Ord30 HDL 40.0 mg/dl 11/29/2017 Lipid Ord30 TRIG 114 mg/dL 11/29/2017 Lipid Ord30 LDL 52 mg/dL 11/29/2017 Lipid Ord30 C/HDL 2.9 Ratio 11/29/2017 %Hba1C Jmh863 % HbA1c 01341- 6 6.5 % 11/29/2017 %Hba1C Guy614 Gluc Ave 140 mg/dL 11/29/2017 Comp Metabolic Nob988 NA 140 mEq/L 11/29/2017 Comp Metabolic Ghd137 K 3.6 mEq/L 11/29/2017 Comp Metabolic Cfj312 CL 106 mEq/L 11/29/2017 Comp Metabolic Ykr498 CO2 24.0 mEq/L 11/29/2017 Comp Metabolic Ujo994 ANION GAP 14 11/29/2017 Comp Metabolic Pne749 GLUCOSE 151 mg/dL 11/29/2017 Comp Metabolic Nmv178 Creat 1.2 mg/dL 11/29/2017 Comp Metabolic Kyw368 eGFR 61 ml/min/1.73m2 11/29/2017 Comp Metabolic Nkb115 BUN 34 mg/dL 11/29/2017 Comp Metabolic Xil754 B/C Ratio 28.3 Ratio 11/29/2017 Comp Metabolic Uih462 CALCIUM 8.9 mg/dL 11/29/2017 Comp Metabolic Hfo663 ALK PHOS 69 U/L 11/29/2017 Comp Metabolic Qyk361 AST(SGOT) 13 U/L 11/29/2017 Comp Metabolic Frq427 ALT(SGPT) 16 U/L 11/29/2017 Comp Metabolic Fbl680 BILI T 0.7 mg/dL 11/29/2017 Comp Metabolic Qbr644 ALBUMIN 3.5 g/dL 11/29/2017 Comp Metabolic Tau753 TPRO 5.7 g/dL 11/29/2017 Comp Metabolic Qwz093 GLOB 2.2 g/dL 11/29/2017 Comp Metabolic Mpq833 A/G Ratio 1.6 Ratio 11/29/2017 Comp Metabolic Ofp774 Osmo 290 mOsmo 11/29/2017 Review of Systems [...] 1: 138/76 Code: 8480-6 BMI: 33.2 Code: 22679-2 Heart Rate 1: 83 bpm Height: 5'7" [...] data Encounters Encounter Performer Location Codes Date ([id number]) [id number] EST. PATIENT, LEVEL IV Diagnosis: Type 2 diabetes mellitus with hyperglycemia[ICD10: E11.65] Diagnosis: Essential (primary) hypertension[ICD10: I10] Diagnosis: Diarrhea, unspecified[ICD10: R19.7] Geneva Spaulding MD, [facility] CPT-4: 87049 02/27/2018 ([id number]) [id number] EST. PATIENT, LEVEL IV Diagnosis: Essential (primary) hypertension[ICD10: I10] Diagnosis: Type 2 diabetes mellitus with hyperglycemia[ICD10: E11.65] Diagnosis: Chronic kidney disease, stage 3 (moderate)[ICD10: N18.3] Diagnosis: Cervicalgia[ICD10: M54.2] Geneva Spaulding MD, [facility] CPT-4: 56348 11/28/2017 ([id number]) [id number] EST. PATIENT, LEVEL III Diagnosis: Essential (primary) hypertension[ICD10: I10] Diagnosis: Type 2 diabetes mellitus with hyperglycemia[ICD10: E11.65] Diagnosis: Foot drop, left foot[ICD10: M21.372] Geneva Spaulding MD, [facility] CPT-4: 49374 08/29/2017 OFFICE VISIT, NEW - LEVEL 4 Diagnosis: Essential (primary) hypertension[ICD10: I10] Diagnosis: Type 2 diabetes mellitus with hyperglycemia[ICD10: E11.65] Diagnosis: Chronic kidney disease, stage 3 (moderate)[ICD10: N18.3] Diagnosis: Muscle weakness (generalized)[ICD10: M62.81] Geneva Spaulding MD, [facility] CPT-4: 64873 07/23/2017 Plan of Care Planned Activity Notes [...] change in blood pressure readings at home. Yecmdmnb-adufkooqcxri-pdmzr probiotics as directed 02/27/2018 Appointment: Geneva Case WPtel: [address] [place], [place] [phone] (15 min) Moderate 02/27/2018 Patient Education: Patient [...] disease-check labs 11/28/2017 Appointment: Geneva Case WPtel[phone] (15 min) Moderate 11/28/2017 Patient Education: [...] safer ambulation. 08/29/2017 Appointment: Geneva Case WPtel: [facility] [place] [address] (15 min) Moderate 08/29/2017 Patient Education: Patient [...] are starting to become less controlled. Generalized wzmuwpnx-ipmnfcksd-gxbpsmbu PT- plan to move back to [place] when able 07/23/2017 Appointment: Geneva Case WPtel: [address] [place], [place] [phone] [place] [address] New Patient 07/23/2017 Patient Education: Patient Medication [...] are starting to become less controlled. Generalized aqpfkqnr-xssmnvsnu-txowfhjo PT-plan to move back to [place] when able PROBIOTIC BID X 1 WEEK [...] change in blood pressure readings at home. Mklmtspx-hgvgzvoyozgi-bwvrd probiotics as directed . Hypertension - well [...]
--- OUTSIDE RECORDS SUMMARY | 2018-08-21 10:33 | XMS REPORT | CCD ---
Author Author Geneva Case MD, [facility] Address [address] [place] [address] Phone Care Team Providers Care Grade Teacher Name Role Phone PP Unavailable CCM Unavailable Summary Purpose Interface Exchange Insurance Providers Payer name Policy type / Coverage type Covered libertarian ID Effective Begin Date Effective End Date WPS Medicare Part B Medicare Part B [id number] Unknown [employer] Medicare Part B [id number] Unknown Family history Mother Diagnosis Age At Onset No Known Diseases N/A Father Diagnosis Age At Onset No Known Diseases N/A Social History Social History Element Codes Description Effective Dates Living arrangements Unknown Assisted Living [facility] 11/28/2017 Marital status Unknown 07/23/2017 Employment Unknown [...] Start Date Stop Date Status Fill Instructions Proscar 5 mg tablet RxNorm: 509186 TAKE 1 TABLET BY MOUTH ONCE DAILY 05/05/2018 10/31/2018 Active Generic For:PROSCAR 5MG 05/05/2018 9:23:48 AM gabapentin 100 mg capsule RxNorm: 371664 TAKE 1 CAPSULE BY MOUTH THREE TIMES DAILY 04/07/2018 09/03/2018 Active Generic For:NEURONTIN 100MG 04/07/2018 10:37:42 AM allopurinol 100 mg tablet RxNorm: 495855 TAKE 1 TABLET BY MOUTH TWICE DAILY 03/20/2018 09/15/2018 Active 03/19/2018 9:53:25 AM Protonix 40 mg tablet,delayed release RxNorm: 709848 TAKE 1 TABLET BY MOUTH EVERY MORNING 03/13/2018 07/10/2018 Active Generic For:PROTONIX 40MG 03/13/2018 9:02:28 AM N O T I C E Last quantity doesn't match original quantity pravastatin 40 mg tablet RxNorm: 123104 TAKE ONE TABLET BY MOUTH EVERY NIGHT AT BEDTIME 03/13/2018 09/08/2018 Active Generic For:PRAVACHOL 40MG 03/13/2018 9:02:23 AM N O T I C E Last quantity doesn't match original quantity tamsulosin 0.4 mg capsule RxNorm: 449387 TAKE 1 CAPSULE BY MOUTH ONCE DAILY 03/10/2018 08/06/2018 Active Generic For:FLOMAX 0.4MG 03/10/2018 10:12:59 AM Plavix 75 mg tablet RxNorm: 168474 TAKE 1 TABLET BY MOUTH ONCE DAILY 03/10/2018 10/05/2018 Active Generic For:*PLAVIX 75MG 03/10/2018 10:12:55 AM Jardiance 10 mg tablet RxNorm: 7860228 1 Tablet(s) PO daily 02/20/2018 08/18/2018 Active Jardiance 10 mg tablet RxNorm: 3516966 1 Tablet(s) PO daily 02/20/2018 02/19/2018 Inactive Plavix 75 mg tablet RxNorm: 637080 1 Tablet(s) PO QHS 02/12/2018 03/09/2018 Inactive tamsulosin 0.4 mg capsule RxNorm: 779384 1 Capsule(s) PO daily 02/12/2018 03/09/2018 Inactive Tylenol 325 mg tablet RxNorm: 167669 1 Tablet(s) PO QHS and every 6 hours prn 02/03/2018 06/02/2018 Active loperamide 2 mg tablet RxNorm: 438523 2 after 1st stool & 1 after each add/max 4 in 24 hours Tablet(s) PO 02/03/2018 06/02/2018 Active Tylenol 325 mg tablet RxNorm: 056692 1 Tablet(s) PO QHS and every 6 hours prn 02/03/2018 02/02/2018 Inactive loperamide 2 mg tablet RxNorm: 426137 2 after 1st stool & 1 after each add/max 4 in 24 hours Tablet(s) PO 02/03/2018 02/02/2018 Inactive Vitamin B-12 1,000 mcg tablet RxNorm: 662553 TAKE 1 TABLET BY MOUTH ONCE DAILY 01/27/2018 12/22/2018 Active 01/27/2018 10:10:15 AM glimepiride 2 mg tablet RxNorm: 000213 TAKE 1 TABLET BY MOUTH ONCE DAILY 01/27/2018 07/25/2018 Active Generic For:AMARYL 2MG 01/27/2018 10:09:58 AM Januvia 100 mg tablet RxNorm: 252223 TAKE 1 TABLET BY MOUTH ONCE DAILY 01/20/2018 02/19/2018 Inactive 01/20/2018 9:58:08 AM Alcohol Pads RxNorm: 043413 1 [place] 01/07/2018 No Stop Date Active amlodipine 5 mg tablet RxNorm: 959009 TAKE ONE TABLET BY MOUTH DAILY 01/06/2018 07/04/2018 Active Generic For:NORVASC 5MG 01/06/2018 10:33:58 AM N O T I C E Last quantity doesn't match original quantity gabapentin 100 mg capsule RxNorm: 740292 TAKE 1 CAPSULE BY MOUTH THREE TIMES DAILY 01/06/2018 04/06/2018 Inactive Generic For:NEURONTIN 100MG 01/06/2018 10:33:55 AM N O T I C E Last quantity doesn't match original quantity Protonix 40 mg tablet,delayed release RxNorm: 414046 TAKE 1 TABLET BY MOUTH EVERY MORNING 12/16/2017 03/12/2018 Inactive Generic For:PROTONIX 40MG Proscar 5 mg tablet RxNorm: 824167 TAKE 1 TABLET BY MOUTH ONCE DAILY 11/04/2017 05/02/2018 Inactive Generic For:PROSCAR 5MG 11/04/2017 9:47:27 AM Aspirin Low Dose 81 mg tablet,delayed release RxNorm: 522466 1 Tablet(s) PO QHS 10/21/2017 10/15/2018 Active amlodipine 5 mg tablet RxNorm: 174682 TAKE ONE TABLET BY MOUTH DAILY 10/07/2017 01/04/2018 Inactive Generic For:NORVASC 5MG 10/07/2017 9:55:37 AM gabapentin 100 mg capsule RxNorm: 023510 TAKE 1 CAPSULE BY MOUTH THREE TIMES DAILY 10/07/2017 01/04/2018 Inactive Generic For:NEURONTIN 100MG 10/07/2017 9:55:26 AM Januvia 100 mg tablet RxNorm: 118720 TAKE 1 TABLET BY MOUTH ONCE DAILY 09/23/2017 01/19/2018 Inactive 09/23/2017 9:25:24 AM pravastatin 40 mg tablet RxNorm: 521430 TAKE ONE TABLET BY MOUTH EVERY NIGHT AT BEDTIME 09/19/2017 03/12/2018 Inactive Generic For:PRAVACHOL 40MG 09/19/2017 9:12:02 AM Protonix 40 mg tablet,delayed release RxNorm: 477506 TAKE 1 TABLET BY MOUTH EVERY MORNING 09/16/2017 12/15/2017 Inactive Generic For:PROTONIX 40MG 09/16/2017 9:50:22 AM amlodipine 5 mg tablet RxNorm: 871304 TAKE ONE TABLET BY MOUTH DAILY 09/09/2017 10/06/2017 Inactive Generic For:NORVASC 5MG 09/09/2017 9:16:37 AM gabapentin 100 mg capsule RxNorm: 018649 TAKE 1 CAPSULE BY MOUTH THREE TIMES DAILY 09/09/2017 10/06/2017 Inactive Generic For:NEURONTIN 100MG 09/09/2017 9:16:33 AM Vitamin D3 1,000 unit tablet RxNorm: 211644 1 Tablet(s) PO daily 09/04/2017 07/30/2018 Active Vitamin D3 1,000 unit tablet RxNorm: 205709 1 Tablet(s) PO daily 09/03/2017 09/03/2017 Inactive glimepiride 2 mg tablet RxNorm: 942205 TAKE 1 TABLET BY MOUTH ONCE DAILY 09/02/2017 01/26/2018 Inactive Generic For:AMARYL 2MG 09/02/2017 9:35:29 AM Vitamin B-12 1,000 mcg tablet RxNorm: 572003 TAKE 1 TABLET BY MOUTH ONCE DAILY 09/02/2017 01/26/2018 Inactive 09/02/2017 9:35:38 AM pravastatin 40 mg tablet RxNorm: 321368 1 Tablet(s) PO QHS 08/22/2017 08/21/2017 Inactive pravastatin 40 mg tablet RxNorm: 964506 1 Tablet(s) PO QHS 08/22/2017 09/18/2017 Inactive glimepiride 2 mg tablet RxNorm: 521630 1 Tablet(s) PO daily 07/24/2017 09/01/2017 Inactive hydrocodone 5 mg-acetaminophen 325 mg tablet RxNorm: 213409 1-2 Tablet(s) PO Q4H as needed for pain 07/23/2017 08/28/2017 Inactive Proscar 5 mg tablet RxNorm: 785007 1 Tablet(s) PO daily No Start Date 11/03/2017 Inactive Metamucil oral packet RxNorm: 1 packet PO daily No Start Date 07/23/2017 Inactive Vitamin B-12 1,000 mcg tablet RxNorm: 724132 1 Tablet(s) PO daily No Start Date 09/01/2017 Inactive tamsulosin 0.4 mg capsule RxNorm: 636912 1 Capsule(s) PO daily No Start Date 02/11/2018 Inactive Plavix 75 mg tablet RxNorm: 633725 1 Tablet(s) PO QHS No Start Date 02/11/2018 Inactive Alcohol Pads RxNorm: 522450 1 TOP UD No Start Date 01/06/2018 Inactive Vitamin D3 1,000 unit tablet RxNorm: 688501 1 Tablet(s) PO daily No Start Date 09/02/2017 Inactive gabapentin 100 mg capsule RxNorm: 685044 1 Capsule(s) PO TID No Start Date 09/08/2017 Inactive olanzapine 5 mg tablet RxNorm: 269836 1 Tablet(s) PO QHS No Start Date 07/22/2017 Inactive Lipitor 40 mg tablet RxNorm: 588788 1 Tablet(s) PO QHS No Start Date 08/21/2017 Inactive Januvia 100 mg tablet RxNorm: 569410 1 Tablet(s) PO QHS No Start Date 09/22/2017 Inactive folic acid 1 mg tablet RxNorm: 147041 1 Tablet(s) PO daily No Start Date 07/23/2017 Inactive hydrocodone 5 mg-acetaminophen 325 mg tablet RxNorm: 361615 1 Tablet(s) PO Q4H as needed for pain No Start Date 07/22/2017 Inactive Protonix 40 mg tablet,delayed release RxNorm: 702723 1 Tablet(s) PO daily No Start Date 09/15/2017 Inactive allopurinol 100 mg tablet RxNorm: 579926 1 Tablet(s) PO BID No Start Date 03/19/2018 Inactive amlodipine 5 mg tablet RxNorm: 934054 1 Tablet(s) PO daily No Start Date 09/08/2017 Inactive Aspirin Low Dose 81 mg tablet,delayed release RxNorm: 451906 1 Tablet(s) PO QHS No Start Date 10/20/2017 Inactive Medication Administered No Medication Administered data Immunizations No Immunization data Assessments Condition Codes Effective Dates Diarrhea, unspecified ICD-10: R19.7 ICD-9: 787.91 02/27/2018 Essential (primary) hypertension ICD-10: I10 ICD-9: 401.1 02/27/2018 Type 2 diabetes mellitus with hyperglycemia ICD-10: E11.65 ICD-9: 250.02 02/27/2018 Cervicalgia ICD-10: M54.2 ICD-9: 723.1 11/28/2017 Chronic kidney disease, stage 3 (moderate) ICD-10: N18.3 ICD-9: 585.3 11/28/2017 Foot drop, left foot ICD-10: M21.372 ICD-9: 736.79 08/29/2017 Muscle weakness (generalized) ICD-10: M62.81 ICD-9: 728.87 07/23/2017 Reason For Visit Reason For Visit Effective Dates Notes diabetes mellitus 02/27/2018 diabetes mellitus 11/28/2017 diabetes mellitus 08/29/2017 diabetes mellitus 07/23/2017 Results Observation Observation Code Item Item Code Result Date Lipid Ord30 CHOL 115 mg/dL 11/29/2017 Lipid Ord30 HDL 40.0 mg/dl 11/29/2017 Lipid Ord30 TRIG 114 mg/dL 11/29/2017 Lipid Ord30 LDL 52 mg/dL 11/29/2017 Lipid Ord30 C/HDL 2.9 Ratio 11/29/2017 Comp Metabolic Gpk276 NA 140 mEq/L 11/29/2017 Comp Metabolic Tyk912 K 3.6 mEq/L 11/29/2017 Comp Metabolic Buc802 CL 106 mEq/L 11/29/2017 Comp Metabolic Nxx114 CO2 24.0 mEq/L 11/29/2017 Comp Metabolic Mrb210 ANION GAP 14 11/29/2017 Comp Metabolic Csx372 GLUCOSE 151 mg/dL 11/29/2017 Comp Metabolic Nuq140 Creat 1.2 mg/dL 11/29/2017 Comp Metabolic Lqr988 eGFR 61 ml/min/1.73m2 11/29/2017 Comp Metabolic Dfo866 BUN 34 mg/dL 11/29/2017 Comp Metabolic Bnm478 B/C Ratio 28.3 Ratio 11/29/2017 Comp Metabolic Itp548 CALCIUM 8.9 mg/dL 11/29/2017 Comp Metabolic Ksu502 ALK PHOS 69 U/L 11/29/2017 Comp Metabolic Vyd408 AST(SGOT) 13 U/L 11/29/2017 Comp Metabolic Lln687 ALT(SGPT) 16 U/L 11/29/2017 Comp Metabolic Enf238 BILI T 0.7 mg/dL 11/29/2017 Comp Metabolic Wsc073 ALBUMIN 3.5 g/dL 11/29/2017 Comp Metabolic Ptn419 TPRO 5.7 g/dL 11/29/2017 Comp Metabolic Saf331 GLOB 2.2 g/dL 11/29/2017 Comp Metabolic Htf414 A/G Ratio 1.6 Ratio 11/29/2017 Comp Metabolic Vjs991 Osmo 290 mOsmo 11/29/2017 %Hba1C Cbk558 % HbA1c 67123- 6 6.5 % 11/29/2017 %Hba1C Tnr647 Gluc Ave 140 mg/dL 11/29/2017 Cbc With Differential Ord2 WBC 7.42 K/ul [...] 30.6 pg 11/29/2017 Cbc With Differential Ord2 Lamar% 8.0 % 11/29/2017 Cbc With Differential Ord2 [...] 1.46 K/ul 11/29/2017 Cbc With Differential Ord2 Lamar ABS# 0.6 K/ul 11/29/2017 Cbc With Differential Ord2 Eos ABS# 0.2 K/ul 11/29/2017 Cbc With Differential Ord2 Baso ABS# 0.0 K/ul 11/29/2017 Review of Systems System Result Effective [...] 1995 Constitutional general appearance Overall: well developed 02/27/2018 [...] 1: 138/76 Code: 8480-6 BMI: 33.2 Code: 17075-4 Heart Rate 1: 83 bpm Height: 5'7" [...] data Encounters Encounter Performer Location Codes Date ([id number]) [id number] EST. PATIENT, LEVEL IV Diagnosis: Type 2 diabetes mellitus with hyperglycemia[ICD10: E11.65] Diagnosis: Essential (primary) hypertension[ICD10: I10] Diagnosis: Diarrhea, unspecified[ICD10: R19.7] Geneva Spaulding MD, [facility] CPT-4: 33283 02/27/2018 ([id number]) 25831 EST. PATIENT, LEVEL IV Diagnosis: Essential (primary) hypertension[ICD10: I10] Diagnosis: Type 2 diabetes mellitus with hyperglycemia[ICD10: E11.65] Diagnosis: Chronic kidney disease, stage 3 (moderate)[ICD10: N18.3] Diagnosis: Cervicalgia[ICD10: M54.2] [facility] CPT-4: 70362 11/28/2017 ([id number]) 38529 EST. PATIENT, LEVEL III Diagnosis: Essential (primary) hypertension[ICD10: I10] Diagnosis: Type 2 diabetes mellitus with hyperglycemia[ICD10: E11.65] Diagnosis: Foot drop, left foot[ICD10: M21.372] [facility] CPT-4: 19884 08/29/2017 OFFICE VISIT, NEW - LEVEL 4 Diagnosis: Essential (primary) hypertension[ICD10: I10] Diagnosis: Type 2 diabetes mellitus with hyperglycemia[ICD10: E11.65] Diagnosis: Chronic kidney disease, stage 3 (moderate)[ICD10: N18.3] Diagnosis: Muscle weakness (generalized)[ICD10: M62.81] [facility] CPT-4: 49073 07/23/2017 Plan of Care Planned Activity Notes [...] change in blood pressure readings at home. Eqnhxxxg-dgthbwomfiyh-clmot probiotics as directed 02/27/2018 Appointment: Geneva Case WPtel: [address] [place], [place] [phone] (15 min) Moderate 02/27/2018 Patient Education: Patient [...] disease-check labs 11/28/2017 Appointment: Geneva Case WPtel: [phone] [place] (15 min) Moderate 11/28/2017 Patient Education: [...] ambulation. 08/29/2017 Appointment: Geneva [facility]el[facility] [phone] [id number] (15 min) Moderate 08/29/2017 Patient Education: Patient [...] are starting to become less controlled. Generalized ajefqfum-qjntlbphe-okryfzkm PT- plan to move back to [place] when able 07/23/2017 Appointment: Geneva Case WPtel: [id number] New Patient 07/23/2017 Patient Education: Patient [...] are starting to become less controlled. Generalized hdtvehfc-gqnfrillo-alvonhfc PT-plan to move back to [place] when able PROBIOTIC BID X 1 WEEK [...] change in blood pressure readings at home. Qqyeijrz-cgdpnssoanyt-bnsvj probiotics as directed . Hypertension - well [...]
--- OUTSIDE RECORDS SUMMARY | 2018-08-21 10:34 | XMS REPORT | CCD ---
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 Name Role Phone PP Unavailable CCM Unavailable Summary Purpose Interface Exchange Insurance Providers Payer name Policy type / Coverage type Covered green party ID Effective Begin Date Effective End Date WPS Medicare Part B Medicare Part B [id number] Unknown [id number] Medicare Part B [id number] Unknown Family history Mother Diagnosis Age At Onset No Known Diseases N/A Father Diagnosis Age At Onset No Known Diseases N/A Social History Social History Element Codes Description Effective Dates Living arrangements Unknown Assisted Living [place] 11/28/2017 Marital status Unknown 07/23/2017 Employment Unknown [...] Start Date Stop Date Status Fill Instructions gabapentin 100 mg capsule RxNorm: 255094 TAKE 1 CAPSULE BY MOUTH THREE TIMES DAILY 04/07/2018 09/03/2018 Active Generic For:NEURONTIN 100MG 04/07/2018 10:37:42 AM allopurinol 100 mg tablet RxNorm: 137584 TAKE 1 TABLET BY MOUTH TWICE DAILY 03/20/2018 09/15/2018 Active 03/19/2018 9:53:25 AM Protonix 40 mg tablet,delayed release RxNorm: 368565 TAKE 1 TABLET BY MOUTH EVERY MORNING 03/13/2018 07/10/2018 Active Generic For:PROTONIX 40MG 03/13/2018 9:02:28 AM N O T I C E Last quantity doesn't match original quantity pravastatin 40 mg tablet RxNorm: 529497 TAKE ONE TABLET BY MOUTH EVERY NIGHT AT BEDTIME 03/13/2018 09/08/2018 Active Generic For:PRAVACHOL 40MG 03/13/2018 9:02:23 AM N O T I C E Last quantity doesn't match original quantity tamsulosin 0.4 mg capsule RxNorm: 318903 TAKE 1 CAPSULE BY MOUTH ONCE DAILY 03/10/2018 08/06/2018 Active Generic For:FLOMAX 0.4MG 03/10/2018 10:12:59 AM Plavix 75 mg tablet RxNorm: 217151 TAKE 1 TABLET BY MOUTH ONCE DAILY 03/10/2018 10/05/2018 Active Generic For:*PLAVIX 75MG 03/10/2018 10:12:55 AM Jardiance 10 mg tablet RxNorm: 0959790 1 Tablet(s) PO daily 02/20/2018 08/18/2018 Active Jardiance 10 mg tablet RxNorm: 9938367 1 Tablet(s) PO daily 02/20/2018 02/19/2018 Inactive Plavix 75 mg tablet RxNorm: 301053 1 Tablet(s) PO QHS 02/12/2018 03/09/2018 Inactive tamsulosin 0.4 mg capsule RxNorm: 134351 1 Capsule(s) PO daily 02/12/2018 03/09/2018 Inactive Tylenol 325 mg tablet RxNorm: 890011 1 Tablet(s) PO QHS and every 6 hours prn 02/03/2018 06/02/2018 Active loperamide 2 mg tablet RxNorm: 402410 2 after 1st stool & 1 after each add/max 4 in 24 hours Tablet(s) PO 02/03/2018 06/02/2018 Active Tylenol 325 mg tablet RxNorm: 939699 1 Tablet(s) PO QHS and every 6 hours prn 02/03/2018 02/02/2018 Inactive loperamide 2 mg tablet RxNorm: 107969 2 after 1st stool & 1 after each add/max 4 in 24 hours Tablet(s) PO 02/03/2018 02/02/2018 Inactive Vitamin B-12 1,000 mcg tablet RxNorm: 154712 TAKE 1 TABLET BY MOUTH ONCE DAILY 01/27/2018 12/22/2018 Active 01/27/2018 10:10:15 AM glimepiride 2 mg tablet RxNorm: 148193 TAKE 1 TABLET BY MOUTH ONCE DAILY 01/27/2018 07/25/2018 Active Generic For:AMARYL 2MG 01/27/2018 10:09:58 AM Januvia 100 mg tablet RxNorm: 404462 TAKE 1 TABLET BY MOUTH ONCE DAILY 01/20/2018 02/19/2018 Inactive 01/20/2018 9:58:08 AM Alcohol Pads RxNorm: 825588 1 [facility] 01/07/2018 No Stop Date Active amlodipine 5 mg tablet RxNorm: 270552 TAKE ONE TABLET BY MOUTH DAILY 01/06/2018 07/04/2018 Active Generic For:NORVASC 5MG 01/06/2018 10:33:58 AM N O T I C E Last quantity doesn't match original quantity gabapentin 100 mg capsule RxNorm: 566778 TAKE 1 CAPSULE BY MOUTH THREE TIMES DAILY 01/06/2018 04/06/2018 Inactive Generic For:NEURONTIN 100MG 01/06/2018 10:33:55 AM N O T I C E Last quantity doesn't match original quantity Protonix 40 mg tablet,delayed release RxNorm: 206167 TAKE 1 TABLET BY MOUTH EVERY MORNING 12/16/2017 03/12/2018 Inactive Generic For:PROTONIX 40MG Proscar 5 mg tablet RxNorm: 502002 TAKE 1 TABLET BY MOUTH ONCE DAILY 11/04/2017 05/02/2018 Active Generic For:PROSCAR 5MG 11/04/2017 9:47:27 AM Aspirin Low Dose 81 mg tablet,delayed release RxNorm: 042923 1 Tablet(s) PO QHS 10/21/2017 10/15/2018 Active amlodipine 5 mg tablet RxNorm: 445936 TAKE ONE TABLET BY MOUTH DAILY 10/07/2017 01/04/2018 Inactive Generic For:NORVASC 5MG 10/07/2017 9:55:37 AM gabapentin 100 mg capsule RxNorm: 110040 TAKE 1 CAPSULE BY MOUTH THREE TIMES DAILY 10/07/2017 01/04/2018 Inactive Generic For:NEURONTIN 100MG 10/07/2017 9:55:26 AM Januvia 100 mg tablet RxNorm: 420185 TAKE 1 TABLET BY MOUTH ONCE DAILY 09/23/2017 01/19/2018 Inactive 09/23/2017 9:25:24 AM pravastatin 40 mg tablet RxNorm: 651578 TAKE ONE TABLET BY MOUTH EVERY NIGHT AT BEDTIME 09/19/2017 03/12/2018 Inactive Generic For:PRAVACHOL 40MG 09/19/2017 9:12:02 AM Protonix 40 mg tablet,delayed release RxNorm: 746304 TAKE 1 TABLET BY MOUTH EVERY MORNING 09/16/2017 12/15/2017 Inactive Generic For:PROTONIX 40MG 09/16/2017 9:50:22 AM amlodipine 5 mg tablet RxNorm: 169498 TAKE ONE TABLET BY MOUTH DAILY 09/09/2017 10/06/2017 Inactive Generic For:NORVASC 5MG 09/09/2017 9:16:37 AM gabapentin 100 mg capsule RxNorm: 818222 TAKE 1 CAPSULE BY MOUTH THREE TIMES DAILY 09/09/2017 10/06/2017 Inactive Generic For:NEURONTIN 100MG 09/09/2017 9:16:33 AM Vitamin D3 1,000 unit tablet RxNorm: 031382 1 Tablet(s) PO daily 09/04/2017 07/30/2018 Active Vitamin D3 1,000 unit tablet RxNorm: 396659 1 Tablet(s) PO daily 09/03/2017 09/03/2017 Inactive glimepiride 2 mg tablet RxNorm: 320141 TAKE 1 TABLET BY MOUTH ONCE DAILY 09/02/2017 01/26/2018 Inactive Generic For:AMARYL 2MG 09/02/2017 9:35:29 AM Vitamin B-12 1,000 mcg tablet RxNorm: 665211 TAKE 1 TABLET BY MOUTH ONCE DAILY 09/02/2017 01/26/2018 Inactive 09/02/2017 9:35:38 AM pravastatin 40 mg tablet RxNorm: 332792 1 Tablet(s) PO QHS 08/22/2017 08/21/2017 Inactive pravastatin 40 mg tablet RxNorm: 078788 1 Tablet(s) PO QHS 08/22/2017 09/18/2017 Inactive glimepiride 2 mg tablet RxNorm: 094800 1 Tablet(s) PO daily 07/24/2017 09/01/2017 Inactive hydrocodone 5 mg-acetaminophen 325 mg tablet RxNorm: 520039 1-2 Tablet(s) PO Q4H as needed for pain 07/23/2017 08/28/2017 Inactive Proscar 5 mg tablet RxNorm: 824426 1 Tablet(s) PO daily No Start Date 11/03/2017 Inactive Metamucil oral packet RxNorm: 1 packet PO daily No Start Date 07/23/2017 Inactive Vitamin B-12 1,000 mcg tablet RxNorm: 524880 1 Tablet(s) PO daily No Start Date 09/01/2017 Inactive tamsulosin 0.4 mg capsule RxNorm: 160188 1 Capsule(s) PO daily No Start Date 02/11/2018 Inactive Plavix 75 mg tablet RxNorm: 061240 1 Tablet(s) PO QHS No Start Date 02/11/2018 Inactive Alcohol Pads RxNorm: 935980 1 TOP UD No Start Date 01/06/2018 Inactive Vitamin D3 1,000 unit tablet RxNorm: 303104 1 Tablet(s) PO daily No Start Date 09/02/2017 Inactive gabapentin 100 mg capsule RxNorm: 978115 1 Capsule(s) PO TID No Start Date 09/08/2017 Inactive olanzapine 5 mg tablet RxNorm: 095694 1 Tablet(s) PO QHS No Start Date 07/22/2017 Inactive Lipitor 40 mg tablet RxNorm: 052203 1 Tablet(s) PO QHS No Start Date 08/21/2017 Inactive Januvia 100 mg tablet RxNorm: 916074 1 Tablet(s) PO QHS No Start Date 09/22/2017 Inactive folic acid 1 mg tablet RxNorm: 441711 1 Tablet(s) PO daily No Start Date 07/23/2017 Inactive hydrocodone 5 mg-acetaminophen 325 mg tablet RxNorm: 487885 1 Tablet(s) PO Q4H as needed for pain No Start Date 07/22/2017 Inactive Protonix 40 mg tablet,delayed release RxNorm: 347163 1 Tablet(s) PO daily No Start Date 09/15/2017 Inactive allopurinol 100 mg tablet RxNorm: 015943 1 Tablet(s) PO BID No Start Date 03/19/2018 Inactive amlodipine 5 mg tablet RxNorm: 445099 1 Tablet(s) PO daily No Start Date 09/08/2017 Inactive Aspirin Low Dose 81 mg tablet,delayed release RxNorm: 833455 1 Tablet(s) PO QHS No Start Date [...] 30.6 pg 11/29/2017 Cbc With Differential Ord2 [place]% 8.0 % 11/29/2017 Cbc With Differential Ord2 [...] 1.46 K/ul 11/29/2017 Cbc With Differential Ord2 [place] ABS# 0.6 K/ul 11/29/2017 Cbc With Differential Ord2 Eos ABS# 0.2 K/ul 11/29/2017 Cbc With Differential Ord2 Baso ABS# 0.0 K/ul 11/29/2017 Lipid Ord30 CHOL 115 mg/dL 11/29/2017 Lipid Ord30 HDL 40.0 mg/dl 11/29/2017 Lipid Ord30 TRIG 114 mg/dL 11/29/2017 Lipid Ord30 LDL 52 mg/dL 11/29/2017 Lipid Ord30 C/HDL 2.9 Ratio 11/29/2017 %Hba1C Jxb485 % HbA1c 87119- 6 6.5 % 11/29/2017 %Hba1C Xih743 Gluc Ave 140 mg/dL 11/29/2017 Comp Metabolic Ypb425 NA 140 mEq/L 11/29/2017 Comp Metabolic Vzg291 K 3.6 mEq/L 11/29/2017 Comp Metabolic Ekc782 CL 106 mEq/L 11/29/2017 Comp Metabolic Saz334 CO2 24.0 mEq/L 11/29/2017 Comp Metabolic Pvf608 ANION GAP 14 11/29/2017 Comp Metabolic Zae095 GLUCOSE 151 mg/dL 11/29/2017 Comp Metabolic Huw128 Creat 1.2 mg/dL 11/29/2017 Comp Metabolic Koi097 eGFR 61 ml/min/1.73m2 11/29/2017 Comp Metabolic Hnt980 BUN 34 mg/dL 11/29/2017 Comp Metabolic Yhv339 B/C Ratio 28.3 Ratio 11/29/2017 Comp Metabolic Uvo709 CALCIUM 8.9 mg/dL 11/29/2017 Comp Metabolic Rxj874 ALK PHOS 69 U/L 11/29/2017 Comp Metabolic Gih473 AST(SGOT) 13 U/L 11/29/2017 Comp Metabolic Tmg592 ALT(SGPT) 16 U/L 11/29/2017 Comp Metabolic Ynp868 BILI T 0.7 mg/dL 11/29/2017 Comp Metabolic Izb662 ALBUMIN 3.5 g/dL 11/29/2017 Comp Metabolic Rvp690 TPRO 5.7 g/dL 11/29/2017 Comp Metabolic Dtf675 GLOB 2.2 g/dL 11/29/2017 Comp Metabolic Kuo110 A/G Ratio 1.6 Ratio 11/29/2017 Comp Metabolic Cea373 Osmo 290 mOsmo 11/29/2017 Review of Systems [...] 1: 138/76 Code: 8480-6 BMI: 33.2 Code: 52503-1 Heart Rate 1: 83 bpm Height: 5'7" [...] data Encounters Encounter Performer Location Codes Date ([id number]) 27247 EST. PATIENT, LEVEL IV Diagnosis: Type 2 diabetes mellitus with hyperglycemia[ICD10: E11.65] Diagnosis: Essential (primary) hypertension[ICD10: I10] Diagnosis: Diarrhea, unspecified[ICD10: R19.7] Geneva Spaulding MD, [facility] CPT-4: 90141 02/27/2018 ([id number]) 91903 EST. PATIENT, LEVEL IV Diagnosis: Essential (primary) hypertension[ICD10: I10] Diagnosis: Type 2 diabetes mellitus with hyperglycemia[ICD10: E11.65] Diagnosis: Chronic kidney disease, stage 3 (moderate)[ICD10: N18.3] Diagnosis: Cervicalgia[ICD10: M54.2] Geneva Spaulding MD, [facility] CPT-4: 17424 11/28/2017 [id number]) [id number] EST. PATIENT, LEVEL III Diagnosis: Essential (primary) hypertension[ICD10: I10] Diagnosis: Type 2 diabetes mellitus with hyperglycemia[ICD10: E11.65] Diagnosis: Foot drop, left foot[ICD10: M21.372] [facility] CPT-4: 83051 08/29/2017 OFFICE VISIT, NEW - LEVEL 4 Diagnosis: Essential (primary) hypertension[ICD10: I10] Diagnosis: Type 2 diabetes mellitus with hyperglycemia[ICD10: E11.65] Diagnosis: Chronic kidney disease, stage 3 (moderate)[ICD10: N18.3] Diagnosis: Muscle weakness (generalized)[ICD10: M62.81] [facility] CPT-4: 75855 07/23/2017 Plan of Care Planned Activity Notes [...] change in blood pressure readings at home. Wkobycuu-fnqazzqfiytn-xmhdl probiotics as directed 02/27/2018 Appointment: Geneva Case WPtel: [address] [place], [place] [phone] (15 min) Moderate 02/27/2018 Patient Education: Patient [...] labs 11/28/2017 [facility]ment: [facility] [phone] [phone] (15 min) Moderate 11/28/2017 [...] safer ambulation. 08/29/2017 App[facility]ment: Geneva [facility] [phone] [phone] (15 min) Moderate 08/29/2017 Patient Education: Patient [...] are starting to become less controlled. Generalized yroowrxt-vseoyruae-qudlawvd PT- plan to move back to [place] when able 07/23/2017 Appointment: Geneva Case WPtel: [phone] [place] New Patient 07/23/2017 Patient Education: [...] are starting to become less controlled. Generalized feqzkfph-ukperthqx-nfnapfnj PT-plan to move back to [place] when able PROBIOTIC BID X 1 WEEK [...] change in blood pressure readings at home. Ifaestmg-bmgqyklbqemv-owdui probiotics as directed . Hypertension - well [...]
--- OUTSIDE RECORDS SUMMARY | 2018-08-21 10:35 | XMS REPORT | CCD ---
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 Name Role Phone PP Unavailable CCM Unavailable Summary Purpose Interface Exchange Insurance Providers Payer name Policy type / Coverage type Covered libertarian ID Effective Begin Date Effective End Date WPS Medicare Part B Medicare Part B [id number] Unknown [place] Medicare Part B [id number] Unknown Family history Mother Diagnosis Age At Onset No Known Diseases N/A Father Diagnosis Age At Onset No Known Diseases N/A Social History Social History Element Codes Description Effective Dates Living arrangements Unknown Assisted Living [place] 11/28/2017 Marital status Unknown 07/23/2017 Employment Unknown [...] Start Date Stop Date Status Fill Instructions allopurinol 100 mg tablet RxNorm: 370979 TAKE 1 TABLET BY MOUTH TWICE DAILY 03/20/2018 09/15/2018 Active 03/19/2018 9:53:25 AM Protonix 40 mg tablet,delayed release RxNorm: 876653 TAKE 1 TABLET BY MOUTH EVERY MORNING 03/13/2018 07/10/2018 Active Generic For:PROTONIX 40MG 03/13/2018 9:02:28 AM N O T I C E Last quantity doesn't match original quantity pravastatin 40 mg tablet RxNorm: 576218 TAKE ONE TABLET BY MOUTH EVERY NIGHT AT BEDTIME 03/13/2018 09/08/2018 Active Generic For:PRAVACHOL 40MG 03/13/2018 9:02:23 AM N O T I C E Last quantity doesn't match original quantity tamsulosin 0.4 mg capsule RxNorm: 941870 TAKE 1 CAPSULE BY MOUTH ONCE DAILY 03/10/2018 08/06/2018 Active Generic For:FLOMAX 0.4MG 03/10/2018 10:12:59 AM Plavix 75 mg tablet RxNorm: 222330 TAKE 1 TABLET BY MOUTH ONCE DAILY 03/10/2018 10/05/2018 Active Generic For:*PLAVIX 75MG 03/10/2018 10:12:55 AM Jardiance 10 mg tablet RxNorm: 0754100 1 Tablet(s) PO daily 02/20/2018 08/18/2018 Active Jardiance 10 mg tablet RxNorm: 5720681 1 Tablet(s) PO daily 02/20/2018 02/19/2018 Inactive Plavix 75 mg tablet RxNorm: 712344 1 Tablet(s) PO QHS 02/12/2018 03/09/2018 Inactive tamsulosin 0.4 mg capsule RxNorm: 051101 1 Capsule(s) PO daily 02/12/2018 03/09/2018 Inactive Tylenol 325 mg tablet RxNorm: 008026 1 Tablet(s) PO QHS and every 6 hours prn 02/03/2018 06/02/2018 Active loperamide 2 mg tablet RxNorm: 072648 2 after 1st stool & 1 after each add/max 4 in 24 hours Tablet(s) PO 02/03/2018 06/02/2018 Active Tylenol 325 mg tablet RxNorm: 412541 1 Tablet(s) PO QHS and every 6 hours prn 02/03/2018 02/02/2018 Inactive loperamide 2 mg tablet RxNorm: 645672 2 after 1st stool & 1 after each add/max 4 in 24 hours Tablet(s) PO 02/03/2018 02/02/2018 Inactive Vitamin B-12 1,000 mcg tablet RxNorm: 111655 TAKE 1 TABLET BY MOUTH ONCE DAILY 01/27/2018 12/22/2018 Active 01/27/2018 10:10:15 AM glimepiride 2 mg tablet RxNorm: 950430 TAKE 1 TABLET BY MOUTH ONCE DAILY 01/27/2018 07/25/2018 Active Generic For:AMARYL 2MG 01/27/2018 10:09:58 AM Januvia 100 mg tablet RxNorm: 857571 TAKE 1 TABLET BY MOUTH ONCE DAILY 01/20/2018 02/19/2018 Inactive 01/20/2018 9:58:08 AM Alcohol Pads RxNorm: 836910 1 [facility] 01/07/2018 No Stop Date Active amlodipine 5 mg tablet RxNorm: 622069 TAKE ONE TABLET BY MOUTH DAILY 01/06/2018 07/04/2018 Active Generic For:NORVASC 5MG 01/06/2018 10:33:58 AM N O T I C E Last quantity doesn't match original quantity gabapentin 100 mg capsule RxNorm: 340140 TAKE 1 CAPSULE BY MOUTH THREE TIMES DAILY 01/06/2018 06/04/2018 Active Generic For:NEURONTIN 100MG 01/06/2018 10:33:55 AM N O T I C E Last quantity doesn't match original quantity Protonix 40 mg tablet,delayed release RxNorm: 674913 TAKE 1 TABLET BY MOUTH EVERY MORNING 12/16/2017 03/12/2018 Inactive Generic For:PROTONIX 40MG Proscar 5 mg tablet RxNorm: 097971 TAKE 1 TABLET BY MOUTH ONCE DAILY 11/04/2017 05/02/2018 Active Generic For:PROSCAR 5MG 11/04/2017 9:47:27 AM Aspirin Low Dose 81 mg tablet,delayed release RxNorm: 390554 1 Tablet(s) PO QHS 10/21/2017 10/15/2018 Active amlodipine 5 mg tablet RxNorm: 450440 TAKE ONE TABLET BY MOUTH DAILY 10/07/2017 01/04/2018 Inactive Generic For:NORVASC 5MG 10/07/2017 9:55:37 AM gabapentin 100 mg capsule RxNorm: 376215 TAKE 1 CAPSULE BY MOUTH THREE TIMES DAILY 10/07/2017 01/04/2018 Inactive Generic For:NEURONTIN 100MG 10/07/2017 9:55:26 AM Januvia 100 mg tablet RxNorm: 179430 TAKE 1 TABLET BY MOUTH ONCE DAILY 09/23/2017 01/19/2018 Inactive 09/23/2017 9:25:24 AM pravastatin 40 mg tablet RxNorm: 874791 TAKE ONE TABLET BY MOUTH EVERY NIGHT AT BEDTIME 09/19/2017 03/12/2018 Inactive Generic For:PRAVACHOL 40MG 09/19/2017 9:12:02 AM Protonix 40 mg tablet,delayed release RxNorm: 780678 TAKE 1 TABLET BY MOUTH EVERY MORNING 09/16/2017 12/15/2017 Inactive Generic For:PROTONIX 40MG 09/16/2017 9:50:22 AM amlodipine 5 mg tablet RxNorm: 909715 TAKE ONE TABLET BY MOUTH DAILY 09/09/2017 10/06/2017 Inactive Generic For:NORVASC 5MG 09/09/2017 9:16:37 AM gabapentin 100 mg capsule RxNorm: 371774 TAKE 1 CAPSULE BY MOUTH THREE TIMES DAILY 09/09/2017 10/06/2017 Inactive Generic For:NEURONTIN 100MG 09/09/2017 9:16:33 AM Vitamin D3 1,000 unit tablet RxNorm: 919749 1 Tablet(s) PO daily 09/04/2017 07/30/2018 Active Vitamin D3 1,000 unit tablet RxNorm: 540780 1 Tablet(s) PO daily 09/03/2017 09/03/2017 Inactive glimepiride 2 mg tablet RxNorm: 134973 TAKE 1 TABLET BY MOUTH ONCE DAILY 09/02/2017 01/26/2018 Inactive Generic For:AMARYL 2MG 09/02/2017 9:35:29 AM Vitamin B-12 1,000 mcg tablet RxNorm: 525374 TAKE 1 TABLET BY MOUTH ONCE DAILY 09/02/2017 01/26/2018 Inactive 09/02/2017 9:35:38 AM pravastatin 40 mg tablet RxNorm: 315633 1 Tablet(s) PO QHS 08/22/2017 08/21/2017 Inactive pravastatin 40 mg tablet RxNorm: 360513 1 Tablet(s) PO QHS 08/22/2017 09/18/2017 Inactive glimepiride 2 mg tablet RxNorm: 719778 1 Tablet(s) PO daily 07/24/2017 09/01/2017 Inactive hydrocodone 5 mg-acetaminophen 325 mg tablet RxNorm: 545067 1-2 Tablet(s) PO Q4H as needed for pain 07/23/2017 08/28/2017 Inactive Proscar 5 mg tablet RxNorm: 368173 1 Tablet(s) PO daily No Start Date 11/03/2017 Inactive Metamucil oral packet RxNorm: 1 packet PO daily No Start Date 07/23/2017 Inactive Vitamin B-12 1,000 mcg tablet RxNorm: 357090 1 Tablet(s) PO daily No Start Date 09/01/2017 Inactive tamsulosin 0.4 mg capsule RxNorm: 850142 1 Capsule(s) PO daily No Start Date 02/11/2018 Inactive Plavix 75 mg tablet RxNorm: 255961 1 Tablet(s) PO QHS No Start Date 02/11/2018 Inactive Alcohol Pads RxNorm: 731557 1 TOP UD No Start Date 01/06/2018 Inactive Vitamin D3 1,000 unit tablet RxNorm: 316705 1 Tablet(s) PO daily No Start Date 09/02/2017 Inactive gabapentin 100 mg capsule RxNorm: 731723 1 Capsule(s) PO TID No Start Date 09/08/2017 Inactive olanzapine 5 mg tablet RxNorm: 121900 1 Tablet(s) PO QHS No Start Date 07/22/2017 Inactive Lipitor 40 mg tablet RxNorm: 985005 1 Tablet(s) PO QHS No Start Date 08/21/2017 Inactive Januvia 100 mg tablet RxNorm: 407175 1 Tablet(s) PO QHS No Start Date 09/22/2017 Inactive folic acid 1 mg tablet RxNorm: 464102 1 Tablet(s) PO daily No Start Date 07/23/2017 Inactive hydrocodone 5 mg-acetaminophen 325 mg tablet RxNorm: 859711 1 Tablet(s) PO Q4H as needed for pain No Start Date 07/22/2017 Inactive Protonix 40 mg tablet,delayed release RxNorm: 542419 1 Tablet(s) PO daily No Start Date 09/15/2017 Inactive allopurinol 100 mg tablet RxNorm: 300971 1 Tablet(s) PO BID No Start Date 03/19/2018 Inactive amlodipine 5 mg tablet RxNorm: 071487 1 Tablet(s) PO daily No Start Date 09/08/2017 Inactive Aspirin Low Dose 81 mg tablet,delayed release RxNorm: 842627 1 Tablet(s) PO QHS No Start Date [...] 30.6 pg 11/29/2017 Cbc With Differential Ord2 [place]% 8.0 % 11/29/2017 Cbc With Differential Ord2 [...] 1.46 K/ul 11/29/2017 Cbc With Differential Ord2 [place] ABS# 0.6 K/ul 11/29/2017 Cbc With Differential Ord2 Eos ABS# 0.2 K/ul 11/29/2017 Cbc With Differential Ord2 Baso ABS# 0.0 K/ul 11/29/2017 Lipid Ord30 CHOL 115 mg/dL 11/29/2017 Lipid Ord30 HDL 40.0 mg/dl 11/29/2017 Lipid Ord30 TRIG 114 mg/dL 11/29/2017 Lipid Ord30 LDL 52 mg/dL 11/29/2017 Lipid Ord30 C/HDL 2.9 Ratio 11/29/2017 %Hba1C Rhu778 % HbA1c 04476- 6 6.5 % 11/29/2017 %Hba1C Zmv185 Gluc Ave 140 mg/dL 11/29/2017 Comp Metabolic Xrp537 NA 140 mEq/L 11/29/2017 Comp Metabolic Ihf641 K 3.6 mEq/L 11/29/2017 Comp Metabolic Pvd127 CL 106 mEq/L 11/29/2017 Comp Metabolic Lgp227 CO2 24.0 mEq/L 11/29/2017 Comp Metabolic Nrk193 ANION GAP 14 11/29/2017 Comp Metabolic Owf997 GLUCOSE 151 mg/dL 11/29/2017 Comp Metabolic Lzu007 Creat 1.2 mg/dL 11/29/2017 Comp Metabolic Hud033 eGFR 61 ml/min/1.73m2 11/29/2017 Comp Metabolic Buj359 BUN 34 mg/dL 11/29/2017 Comp Metabolic Hhh833 B/C Ratio 28.3 Ratio 11/29/2017 Comp Metabolic Lrk773 CALCIUM 8.9 mg/dL 11/29/2017 Comp Metabolic Rse433 ALK PHOS 69 U/L 11/29/2017 Comp Metabolic Esu505 AST(SGOT) 13 U/L 11/29/2017 Comp Metabolic Oot052 ALT(SGPT) 16 U/L 11/29/2017 Comp Metabolic Xsr434 BILI T 0.7 mg/dL 11/29/2017 Comp Metabolic Isd273 ALBUMIN 3.5 g/dL 11/29/2017 Comp Metabolic Gap376 TPRO 5.7 g/dL 11/29/2017 Comp Metabolic Rpl948 GLOB 2.2 g/dL 11/29/2017 Comp Metabolic Oiz460 A/G Ratio 1.6 Ratio 11/29/2017 Comp Metabolic Sio342 Osmo 290 mOsmo 11/29/2017 Review of Systems [...] 1: 138/76 Code: 8480-6 BMI: 33.2 Code: 59290-5 Heart Rate 1: 83 bpm Height: 5'7" [...] data Encounters Encounter Performer Location Codes Date ([id number]) 46060 EST. PATIENT, LEVEL IV Diagnosis: Type 2 diabetes mellitus with hyperglycemia[ICD10: E11.65] Diagnosis: Essential (primary) hypertension[ICD10: I10] Diagnosis: Diarrhea, unspecified[ICD10: R19.7] Geneva Spaulding MD, [facility] CPT-4: 27085 02/27/2018 ([id number]) 60380 EST. PATIENT, LEVEL IV Diagnosis: Essential (primary) hypertension[ICD10: I10] Diagnosis: Type 2 diabetes mellitus with hyperglycemia[ICD10: E11.65] Diagnosis: Chronic kidney disease, stage 3 (moderate)[ICD10: N18.3] Diagnosis: Cervicalgia[ICD10: M54.2] Geneva Spaulding MD, [facility] CPT-4: 65401 11/28/2017 ([id number]) 90336 EST. PATIENT, LEVEL III Diagnosis: Essential (primary) hypertension[ICD10: I10] Diagnosis: Type 2 diabetes mellitus with hyperglycemia[ICD10: E11.65] Diagnosis: Foot drop, left foot[ICD10: M21.372] Geneva Spaulding MD, [facility] CPT-4: 47323 08/29/2017 OFFICE VISIT, NEW - LEVEL 4 Diagnosis: Essential (primary) hypertension[ICD10: I10] Diagnosis: Type 2 diabetes mellitus with hyperglycemia[ICD10: E11.65] Diagnosis: Chronic kidney disease, stage 3 (moderate)[ICD10: N18.3] Diagnosis: Muscle weakness (generalized)[ICD10: M62.81] Geneva Spaulding MD, [facility] CPT-4: 34558 07/23/2017 Plan of Care Planned Activity Notes [...] change in blood pressure readings at home. Kxwjmgff-txumtngngjyg-ibeho probiotics as directed 02/27/2018 Appointment: Geneva Case WPtel: [phone] (15 min) Moderate 02/27/2018 Patient Education: [...] labs 11/28/2017 Appointment: Geneva Case WPtel: [phone] [phone] [place] (15 min) Moderate 11/28/2017 Patient [...] safer ambulation. 08/29/2017 Appointment: Geneva Case WPtel: [address] [place], [place] [phone] (15 min) Moderate 08/29/2017 Patient Education: Patient [...] are starting to become less controlled. Generalized rvafgxyp-xunkgdrbf-vwjulnrl PT- plan to move back to [place] when able 07/23/2017 [facility]ointment[facility] Geneva [phone] [phone] New Patient 07/23/2017 Patient Education: Patient [...] are starting to become less controlled. Generalized hpwuqgyv-xdfszgufl-yhnbgekn PT-plan to move back to [place] when able PROBIOTIC BID X 1 WEEK [...] change in blood pressure readings at home. Ulfptkvl-vwqijczuoikc-herza probiotics as directed . Hypertension - well [...]
--- OUTSIDE RECORDS SUMMARY | 2018-08-21 10:36 | XMS REPORT | CCD ---
Author Author Geneva Case MD, [facility] Address [address] [place] [address] Phone Care Team Providers Care Boat Tender Name Role Phone PP Unavailable CCM Unavailable Summary Purpose Interface Exchange Insurance Providers Payer name Policy type / Coverage type Covered constitution party ID Effective Begin Date Effective End Date WPS Medicare Part B Medicare Part B [id number] Unknown [employer] Medicare Part B [id number] Unknown Family history Mother Diagnosis Age At Onset No Known Diseases N/A Father Diagnosis Age At Onset No Known Diseases N/A Social History Social History Element Codes Description Effective Dates Living arrangements Unknown Assisted Living [place] 11/28/2017 Marital status Unknown 07/23/2017 Employment Unknown [...] Instructions Protonix 40 mg tablet,delayed release RxNorm: 342904 TAKE 1 TABLET BY MOUTH EVERY MORNING 03/13/2018 07/10/2018 Active Generic For:PROTONIX 40MG 03/13/2018 9:02:28 AM N O T I C E Last quantity doesn't match original quantity pravastatin 40 mg tablet RxNorm: 187182 TAKE ONE TABLET BY MOUTH EVERY NIGHT AT BEDTIME 03/13/2018 09/08/2018 Active Generic For:PRAVACHOL 40MG 03/13/2018 9:02:23 AM N O T I C E Last quantity doesn't match original quantity tamsulosin 0.4 mg capsule RxNorm: 940809 TAKE 1 CAPSULE BY MOUTH ONCE DAILY 03/10/2018 08/06/2018 Active Generic For:FLOMAX 0.4MG 03/10/2018 10:12:59 AM Plavix 75 mg tablet RxNorm: 624223 TAKE 1 TABLET BY MOUTH ONCE DAILY 03/10/2018 10/05/2018 Active Generic For:*PLAVIX 75MG 03/10/2018 10:12:55 AM Jardiance 10 mg tablet RxNorm: 6247905 1 Tablet(s) PO daily 02/20/2018 08/18/2018 Active Jardiance 10 mg tablet RxNorm: 0322663 1 Tablet(s) PO daily 02/20/2018 02/19/2018 Inactive Plavix 75 mg tablet RxNorm: 946974 1 Tablet(s) PO QHS 02/12/2018 03/09/2018 Inactive tamsulosin 0.4 mg capsule RxNorm: 059105 1 Capsule(s) PO daily 02/12/2018 03/09/2018 Inactive Tylenol 325 mg tablet RxNorm: 264330 1 Tablet(s) PO QHS and every 6 hours prn 02/03/2018 06/02/2018 Active loperamide 2 mg tablet RxNorm: 173749 2 after 1st stool & 1 after each add/max 4 in 24 hours Tablet(s) PO 02/03/2018 06/02/2018 Active Tylenol 325 mg tablet RxNorm: 622340 1 Tablet(s) PO QHS and every 6 hours prn 02/03/2018 02/02/2018 Inactive loperamide 2 mg tablet RxNorm: 415705 2 after 1st stool & 1 after each add/max 4 in 24 hours Tablet(s) PO 02/03/2018 02/02/2018 Inactive Vitamin B-12 1,000 mcg tablet RxNorm: 012322 TAKE 1 TABLET BY MOUTH ONCE DAILY 01/27/2018 12/22/2018 Active 01/27/2018 10:10:15 AM glimepiride 2 mg tablet RxNorm: 037903 TAKE 1 TABLET BY MOUTH ONCE DAILY 01/27/2018 07/25/2018 Active Generic For:AMARYL 2MG 01/27/2018 10:09:58 AM Januvia 100 mg tablet RxNorm: 583492 TAKE 1 TABLET BY MOUTH ONCE DAILY 01/20/2018 02/19/2018 Inactive 01/20/2018 9:58:08 AM Alcohol Pads RxNorm: 488161 1 [facility] 01/07/2018 No Stop Date Active amlodipine 5 mg tablet RxNorm: 125312 TAKE ONE TABLET BY MOUTH DAILY 01/06/2018 07/04/2018 Active Generic For:NORVASC 5MG 01/06/2018 10:33:58 AM N O T I C E Last quantity doesn't match original quantity gabapentin 100 mg capsule RxNorm: 827772 TAKE 1 CAPSULE BY MOUTH THREE TIMES DAILY 01/06/2018 06/04/2018 Active Generic For:NEURONTIN 100MG 01/06/2018 10:33:55 AM N O T I C E Last quantity doesn't match original quantity Protonix 40 mg tablet,delayed release RxNorm: 826437 TAKE 1 TABLET BY MOUTH EVERY MORNING 12/16/2017 03/12/2018 Inactive Generic For:PROTONIX 40MG Proscar 5 mg tablet RxNorm: 957268 TAKE 1 TABLET BY MOUTH ONCE DAILY 11/04/2017 05/02/2018 Active Generic For:PROSCAR 5MG 11/04/2017 9:47:27 AM Aspirin Low Dose 81 mg tablet,delayed release RxNorm: 334886 1 Tablet(s) PO QHS 10/21/2017 10/15/2018 Active amlodipine 5 mg tablet RxNorm: 488487 TAKE ONE TABLET BY MOUTH DAILY 10/07/2017 01/04/2018 Inactive Generic For:NORVASC 5MG 10/07/2017 9:55:37 AM gabapentin 100 mg capsule RxNorm: 912489 TAKE 1 CAPSULE BY MOUTH THREE TIMES DAILY 10/07/2017 01/04/2018 Inactive Generic For:NEURONTIN 100MG 10/07/2017 9:55:26 AM Januvia 100 mg tablet RxNorm: 623988 TAKE 1 TABLET BY MOUTH ONCE DAILY 09/23/2017 01/19/2018 Inactive 09/23/2017 9:25:24 AM pravastatin 40 mg tablet RxNorm: 945206 TAKE ONE TABLET BY MOUTH EVERY NIGHT AT BEDTIME 09/19/2017 03/12/2018 Inactive Generic For:PRAVACHOL 40MG 09/19/2017 9:12:02 AM Protonix 40 mg tablet,delayed release RxNorm: 510694 TAKE 1 TABLET BY MOUTH EVERY MORNING 09/16/2017 12/15/2017 Inactive Generic For:PROTONIX 40MG 09/16/2017 9:50:22 AM amlodipine 5 mg tablet RxNorm: 698591 TAKE ONE TABLET BY MOUTH DAILY 09/09/2017 10/06/2017 Inactive Generic For:NORVASC 5MG 09/09/2017 9:16:37 AM gabapentin 100 mg capsule RxNorm: 883830 TAKE 1 CAPSULE BY MOUTH THREE TIMES DAILY 09/09/2017 10/06/2017 Inactive Generic For:NEURONTIN 100MG 09/09/2017 9:16:33 AM Vitamin D3 1,000 unit tablet RxNorm: 961745 1 Tablet(s) PO daily 09/04/2017 07/30/2018 Active Vitamin D3 1,000 unit tablet RxNorm: 542640 1 Tablet(s) PO daily 09/03/2017 09/03/2017 Inactive glimepiride 2 mg tablet RxNorm: 833577 TAKE 1 TABLET BY MOUTH ONCE DAILY 09/02/2017 01/26/2018 Inactive Generic For:AMARYL 2MG 09/02/2017 9:35:29 AM Vitamin B-12 1,000 mcg tablet RxNorm: 533586 TAKE 1 TABLET BY MOUTH ONCE DAILY 09/02/2017 01/26/2018 Inactive 09/02/2017 9:35:38 AM pravastatin 40 mg tablet RxNorm: 130742 1 Tablet(s) PO QHS 08/22/2017 08/21/2017 Inactive pravastatin 40 mg tablet RxNorm: 065059 1 Tablet(s) PO QHS 08/22/2017 09/18/2017 Inactive glimepiride 2 mg tablet RxNorm: 270082 1 Tablet(s) PO daily 07/24/2017 09/01/2017 Inactive hydrocodone 5 mg-acetaminophen 325 mg tablet RxNorm: 592571 1-2 Tablet(s) PO Q4H as needed for pain 07/23/2017 08/28/2017 Inactive allopurinol 100 mg tablet RxNorm: 151597 1 Tablet(s) PO BID No Start Date Active Proscar 5 mg tablet RxNorm: 197295 1 Tablet(s) PO daily No Start Date 11/03/2017 Inactive Metamucil oral packet RxNorm: 1 packet PO daily No Start Date 07/23/2017 Inactive Vitamin B-12 1,000 mcg tablet RxNorm: 903381 1 Tablet(s) PO daily No Start Date 09/01/2017 Inactive tamsulosin 0.4 mg capsule RxNorm: 951919 1 Capsule(s) PO daily No Start Date 02/11/2018 Inactive Plavix 75 mg tablet RxNorm: 957253 1 Tablet(s) PO QHS No Start Date 02/11/2018 Inactive Alcohol Pads RxNorm: 895837 1 TOP UD No Start Date 01/06/2018 Inactive Vitamin D3 1,000 unit tablet RxNorm: 563556 1 Tablet(s) PO daily No Start Date 09/02/2017 Inactive gabapentin 100 mg capsule RxNorm: 440371 1 Capsule(s) PO TID No Start Date 09/08/2017 Inactive olanzapine 5 mg tablet RxNorm: 536711 1 Tablet(s) PO QHS No Start Date 07/22/2017 Inactive Lipitor 40 mg tablet RxNorm: 781617 1 Tablet(s) PO QHS No Start Date 08/21/2017 Inactive Januvia 100 mg tablet RxNorm: 785185 1 Tablet(s) PO QHS No Start Date 09/22/2017 Inactive folic acid 1 mg tablet RxNorm: 870233 1 Tablet(s) PO daily No Start Date 07/23/2017 Inactive hydrocodone 5 mg-acetaminophen 325 mg tablet RxNorm: 869296 1 Tablet(s) PO Q4H as needed for pain No Start Date 07/22/2017 Inactive Protonix 40 mg tablet,delayed release RxNorm: 681178 1 Tablet(s) PO daily No Start Date 09/15/2017 Inactive amlodipine 5 mg tablet RxNorm: 880789 1 Tablet(s) PO daily No Start Date 09/08/2017 Inactive Aspirin Low Dose 81 mg tablet,delayed release RxNorm: 273985 1 Tablet(s) PO QHS No Start Date [...] 68.6 % 11/29/2017 Cbc With Differential Ord2 Lymph% 19.7 % 11/29/2017 Cbc With Differential Ord2 MCV 94.5 fl 11/29/2017 Cbc With Differential Ord2 [place]% 8.0 % 11/29/2017 Cbc With Differential Ord2 MCH 30.6 pg 11/29/2017 Cbc With Differential Ord2 Eos% 3.2 % 11/29/2017 Cbc With Differential Ord2 MCHC 32.4 pg 11/29/2017 Cbc With Differential Ord2 PLT 211 K/ul 11/29/2017 Cbc With Differential Ord2 Baso% 0.5 % 11/29/2017 Cbc With Differential Ord2 Neut ABS# 5.09 K/ul 11/29/2017 Cbc With Differential Ord2 RDW 14.9 % 11/29/2017 Cbc With Differential Ord2 Lymph ABS# 1.46 K/ul 11/29/2017 Cbc With Differential Ord2 [place] ABS# 0.6 K/ul 11/29/2017 Cbc With Differential Ord2 Eos ABS# 0.2 K/ul 11/29/2017 Cbc With Differential Ord2 Baso ABS# 0.0 K/ul 11/29/2017 Lipid Ord30 CHOL 115 mg/dL 11/29/2017 Lipid Ord30 HDL 40.0 mg/dl 11/29/2017 Lipid Ord30 TRIG 114 mg/dL 11/29/2017 Lipid Ord30 LDL 52 mg/dL 11/29/2017 Lipid Ord30 C/HDL 2.9 Ratio 11/29/2017 %Hba1C Omt704 % HbA1c 68963- 6 6.5 % 11/29/2017 %Hba1C Qoh372 Gluc Ave 140 mg/dL 11/29/2017 Comp Metabolic Djf757 NA 140 mEq/L 11/29/2017 Comp Metabolic Jun122 K 3.6 mEq/L 11/29/2017 Comp Metabolic Kdb455 CL 106 mEq/L 11/29/2017 Comp Metabolic Kaf313 CO2 24.0 mEq/L 11/29/2017 Comp Metabolic Xss622 ANION GAP 14 11/29/2017 Comp Metabolic Uan697 GLUCOSE 151 mg/dL 11/29/2017 Comp Metabolic Okw835 Creat 1.2 mg/dL 11/29/2017 Comp Metabolic Gnz314 eGFR 61 ml/min/1.73m2 11/29/2017 Comp Metabolic Isr951 BUN 34 mg/dL 11/29/2017 Comp Metabolic Uko372 B/C Ratio 28.3 Ratio 11/29/2017 Comp Metabolic Xhb561 CALCIUM 8.9 mg/dL 11/29/2017 Comp Metabolic Obi377 ALK PHOS 69 U/L 11/29/2017 Comp Metabolic Vvy978 AST(SGOT) 13 U/L 11/29/2017 Comp Metabolic Vgu275 ALT(SGPT) 16 U/L 11/29/2017 Comp Metabolic Lqb705 BILI T 0.7 mg/dL 11/29/2017 Comp Metabolic Gkc580 ALBUMIN 3.5 g/dL 11/29/2017 Comp Metabolic Fva441 TPRO 5.7 g/dL 11/29/2017 Comp Metabolic Fke016 GLOB 2.2 g/dL 11/29/2017 Comp Metabolic Ryf192 A/G Ratio 1.6 Ratio 11/29/2017 Comp Metabolic Gwb552 Osmo 290 mOsmo 11/29/2017 Review of Systems [...] 1: 138/76 Code: 8480-6 BMI: 33.2 Code: 79689-4 Heart Rate 1: 83 bpm Height: 5'7" [...] data Encounters Encounter Performer Location Codes Date ([id number]) 93801 EST. PATIENT, LEVEL IV Diagnosis: Type 2 diabetes mellitus with hyperglycemia[ICD10: E11.65] Diagnosis: Essential (primary) hypertension[ICD10: I10] Diagnosis: Diarrhea, unspecified[ICD10: R19.7] Geneva Spaulding MD, [facility] CPT-4: 59547 02/27/2018 [id number]) 68637 EST. PATIENT, LEVEL IV Diagnosis: Essential (primary) hypertension[ICD10: I10] Diagnosis: Type 2 diabetes mellitus with hyperglycemia[ICD10: E11.65] Diagnosis: Chronic kidney disease, stage 3 (moderate)[ICD10: N18.3] Diagnosis: Cervicalgia[ICD10: M54.2] Genvea Spaulding MD, [facility] CPT-4: 29937 11/28/[id number]) 23058 EST. PATIENT, LEVEL III Diagnosis: Essential (primary) hypertension[ICD10: I10] Diagnosis: Type 2 diabetes mellitus with hyperglycemia[ICD10: E11.65] Diagnosis: Foot drop, left foot[ICD10: M21.372] Geneva Spaulding MD, [facility] CPT-4: 16545 08/29/2017 OFFICE VISIT, NEW - LEVEL 4 Diagnosis: Essential (primary) hypertension[ICD10: I10] Diagnosis: Type 2 diabetes mellitus with hyperglycemia[ICD10: E11.65] Diagnosis: Chronic kidney disease, stage 3 (moderate)[ICD10: N18.3] Diagnosis: Muscle weakness (generalized)[ICD10: M62.81] [facility] CPT-4: 37153 07/23/2017 Plan of Care Planned Activity Notes [...] change in blood pressure readings at home. Lblkmoij-fouwauoiiffa-tffxs probiotics as directed 02/27/2018 Appointment: Geneva Case WPtel: [facility] (15 min) Moderate 02/27/2018 Patient Education: Patient [...] disease-check labs 11/28/2017 Appointment: Geneva Case WPtel: [facility]9 [phone] (15 min) Moderate 11/28/2017 Patient Education: Patient [...] safer ambulation. 08/29/2017 Appointment: Geneva Case [facility]Ptel[phone] (15 min) Moderate 08/29/2017 Patient Education: [...] are starting to become less controlled. Generalized ntnjqwxx-vnkrfjwfv-aylghuoz PT- plan to move back to [place] when able 07/23/2017 Appointment: Geneva Case WPtel[phone] New Patient 07/23/2017 Patient Education: Patient Medication [...] are starting to become less controlled. Generalized jpjopfvo-nudlffoks-icpdsdmp PT-plan to move back to [place] when able PROBIOTIC BID X 1 WEEK [...] change in blood pressure readings at home. Kyqcvnrs-hxtveyjixkct-xaugh probiotics as directed . Hypertension - well [...]
--- OUTSIDE RECORDS SUMMARY | 2018-08-21 10:36 | XMS REPORT | CCD ---
Author Author Geneva Case MD, [facility] Address [address] [place] [address] Phone Care Team Providers Care Computer Information Systems Professor Name Role Phone PP Unavailable CCM Unavailable Summary Purpose Interface Exchange Insurance Providers Payer name Policy type / Coverage type Covered libertarian ID Effective Begin Date Effective End Date WPS Medicare Part B Medicare Part B [id number] Unknown [employer] Medicare Part B [id number] Unknown Family history Mother Diagnosis Age At Onset No Known Diseases N/A Father Diagnosis Age At Onset No Known Diseases N/A Social History Social History Element Codes Description Effective Dates Living arrangements Unknown Assisted Living [place] 11/28/2017 Marital status Unknown 07/23/2017 Employment Unknown [...] Start Date Stop Date Status Fill Instructions pravastatin 40 mg tablet RxNorm: 546166 TAKE ONE TABLET BY MOUTH EVERY NIGHT AT BEDTIME 03/13/2018 09/08/2018 Active Generic For:PRAVACHOL 40MG 03/13/2018 9:02:23 AM N O T I C E Last quantity doesn't match original quantity tamsulosin 0.4 mg capsule RxNorm: 952316 TAKE 1 CAPSULE BY MOUTH ONCE DAILY 03/10/2018 08/06/2018 Active Generic For:FLOMAX 0.4MG 03/10/2018 10:12:59 AM Plavix 75 mg tablet RxNorm: 917414 TAKE 1 TABLET BY MOUTH ONCE DAILY 03/10/2018 10/05/2018 Active Generic For:*PLAVIX 75MG 03/10/2018 10:12:55 AM Jardiance 10 mg tablet RxNorm: 4467098 1 Tablet(s) PO daily 02/20/2018 08/18/2018 Active Jardiance 10 mg tablet RxNorm: 6617125 1 Tablet(s) PO daily 02/20/2018 02/19/2018 Inactive Plavix 75 mg tablet RxNorm: 687446 1 Tablet(s) PO QHS 02/12/2018 03/09/2018 Inactive tamsulosin 0.4 mg capsule RxNorm: 135197 1 Capsule(s) PO daily 02/12/2018 03/09/2018 Inactive Tylenol 325 mg tablet RxNorm: 489615 1 Tablet(s) PO QHS and every 6 hours prn 02/03/2018 06/02/2018 Active loperamide 2 mg tablet RxNorm: 788723 2 after 1st stool & 1 after each add/max 4 in 24 hours Tablet(s) PO 02/03/2018 06/02/2018 Active Tylenol 325 mg tablet RxNorm: 613972 1 Tablet(s) PO QHS and every 6 hours prn 02/03/2018 02/02/2018 Inactive loperamide 2 mg tablet RxNorm: 326607 2 after 1st stool & 1 after each add/max 4 in 24 hours Tablet(s) PO 02/03/2018 02/02/2018 Inactive Vitamin B-12 1,000 mcg tablet RxNorm: 631281 TAKE 1 TABLET BY MOUTH ONCE DAILY 01/27/2018 12/22/2018 Active 01/27/2018 10:10:15 AM glimepiride 2 mg tablet RxNorm: 612469 TAKE 1 TABLET BY MOUTH ONCE DAILY 01/27/2018 07/25/2018 Active Generic For:AMARYL 2MG 01/27/2018 10:09:58 AM Januvia 100 mg tablet RxNorm: 777045 TAKE 1 TABLET BY MOUTH ONCE DAILY 01/20/2018 02/19/2018 Inactive 01/20/2018 9:58:08 AM Alcohol Pads RxNorm: 298350 1 [facility] 01/07/2018 No Stop Date Active amlodipine 5 mg tablet RxNorm: 429924 TAKE ONE TABLET BY MOUTH DAILY 01/06/2018 07/04/2018 Active Generic For:NORVASC 5MG 01/06/2018 10:33:58 AM N O T I C E Last quantity doesn't match original quantity gabapentin 100 mg capsule RxNorm: 787360 TAKE 1 CAPSULE BY MOUTH THREE TIMES DAILY 01/06/2018 06/04/2018 Active Generic For:NEURONTIN 100MG 01/06/2018 10:33:55 AM N O T I C E Last quantity doesn't match original quantity Protonix 40 mg tablet,delayed release RxNorm: 463448 TAKE 1 TABLET BY MOUTH EVERY MORNING 12/16/2017 04/14/2018 Active Generic For:PROTONIX 40MG Proscar 5 mg tablet RxNorm: 702650 TAKE 1 TABLET BY MOUTH ONCE DAILY 11/04/2017 05/02/2018 Active Generic For:PROSCAR 5MG 11/04/2017 9:47:27 AM Aspirin Low Dose 81 mg tablet,delayed release RxNorm: 528265 1 Tablet(s) PO QHS 10/21/2017 10/15/2018 Active amlodipine 5 mg tablet RxNorm: 575977 TAKE ONE TABLET BY MOUTH DAILY 10/07/2017 01/04/2018 Inactive Generic For:NORVASC 5MG 10/07/2017 9:55:37 AM gabapentin 100 mg capsule RxNorm: 746553 TAKE 1 CAPSULE BY MOUTH THREE TIMES DAILY 10/07/2017 01/04/2018 Inactive Generic For:NEURONTIN 100MG 10/07/2017 9:55:26 AM Januvia 100 mg tablet RxNorm: 738207 TAKE 1 TABLET BY MOUTH ONCE DAILY 09/23/2017 01/19/2018 Inactive 09/23/2017 9:25:24 AM pravastatin 40 mg tablet RxNorm: 255141 TAKE ONE TABLET BY MOUTH EVERY NIGHT AT BEDTIME 09/19/2017 03/12/2018 Inactive Generic For:PRAVACHOL 40MG 09/19/2017 9:12:02 AM Protonix 40 mg tablet,delayed release RxNorm: 138015 TAKE 1 TABLET BY MOUTH EVERY MORNING 09/16/2017 12/15/2017 Inactive Generic For:PROTONIX 40MG 09/16/2017 9:50:22 AM amlodipine 5 mg tablet RxNorm: 005304 TAKE ONE TABLET BY MOUTH DAILY 09/09/2017 10/06/2017 Inactive Generic For:NORVASC 5MG 09/09/2017 9:16:37 AM gabapentin 100 mg capsule RxNorm: 830856 TAKE 1 CAPSULE BY MOUTH THREE TIMES DAILY 09/09/2017 10/06/2017 Inactive Generic For:NEURONTIN 100MG 09/09/2017 9:16:33 AM Vitamin D3 1,000 unit tablet RxNorm: 278426 1 Tablet(s) PO daily 09/04/2017 07/30/2018 Active Vitamin D3 1,000 unit tablet RxNorm: 993536 1 Tablet(s) PO daily 09/03/2017 09/03/2017 Inactive glimepiride 2 mg tablet RxNorm: 162258 TAKE 1 TABLET BY MOUTH ONCE DAILY 09/02/2017 01/26/2018 Inactive Generic For:AMARYL 2MG 09/02/2017 9:35:29 AM Vitamin B-12 1,000 mcg tablet RxNorm: 832929 TAKE 1 TABLET BY MOUTH ONCE DAILY 09/02/2017 01/26/2018 Inactive 09/02/2017 9:35:38 AM pravastatin 40 mg tablet RxNorm: 616491 1 Tablet(s) PO QHS 08/22/2017 08/21/2017 Inactive pravastatin 40 mg tablet RxNorm: 763973 1 Tablet(s) PO QHS 08/22/2017 09/18/2017 Inactive glimepiride 2 mg tablet RxNorm: 377028 1 Tablet(s) PO daily 07/24/2017 09/01/2017 Inactive hydrocodone 5 mg-acetaminophen 325 mg tablet RxNorm: 910454 1-2 Tablet(s) PO Q4H as needed for pain 07/23/2017 08/28/2017 Inactive allopurinol 100 mg tablet RxNorm: 414140 1 Tablet(s) PO BID No Start Date Active Proscar 5 mg tablet RxNorm: 700051 1 Tablet(s) PO daily No Start Date 11/03/2017 Inactive Metamucil oral packet RxNorm: 1 packet PO daily No Start Date 07/23/2017 Inactive Vitamin B-12 1,000 mcg tablet RxNorm: 689727 1 Tablet(s) PO daily No Start Date 09/01/2017 Inactive tamsulosin 0.4 mg capsule RxNorm: 172674 1 Capsule(s) PO daily No Start Date 02/11/2018 Inactive Plavix 75 mg tablet RxNorm: 021585 1 Tablet(s) PO QHS No Start Date 02/11/2018 Inactive Alcohol Pads RxNorm: 302358 1 [facility] No Start Date 01/06/2018 Inactive Vitamin D3 1,000 unit tablet RxNorm: 702081 1 Tablet(s) PO daily No Start Date 09/02/2017 Inactive gabapentin 100 mg capsule RxNorm: 401379 1 Capsule(s) PO TID No Start Date 09/08/2017 Inactive olanzapine 5 mg tablet RxNorm: 709669 1 Tablet(s) PO QHS No Start Date 07/22/2017 Inactive Lipitor 40 mg tablet RxNorm: 925862 1 Tablet(s) PO QHS No Start Date 08/21/2017 Inactive Januvia 100 mg tablet RxNorm: 577412 1 Tablet(s) PO QHS No Start Date 09/22/2017 Inactive folic acid 1 mg tablet RxNorm: 889715 1 Tablet(s) PO daily No Start Date 07/23/2017 Inactive hydrocodone 5 mg-acetaminophen 325 mg tablet RxNorm: 245593 1 Tablet(s) PO Q4H as needed for pain No Start Date 07/22/2017 Inactive Protonix 40 mg tablet,delayed release RxNorm: 970510 1 Tablet(s) PO daily No Start Date 09/15/2017 Inactive amlodipine 5 mg tablet RxNorm: 404548 1 Tablet(s) PO daily No Start Date 09/08/2017 Inactive Aspirin Low Dose 81 mg tablet,delayed release RxNorm: 878619 1 Tablet(s) PO QHS No Start Date 10/20/2017 Inactive Medication Administered No Medication Administered data Immunizations No Immunization data Assessments Condition Codes Effective Dates Essential (primary) hypertension ICD-10: I10 ICD-9: 401.1 02/27/2018 Diarrhea, unspecified ICD-10: R19.7 ICD-9: 787.91 02/27/2018 Type 2 diabetes mellitus with hyperglycemia ICD-10: E11.65 ICD-9: 250.02 02/27/2018 Chronic kidney disease, stage 3 (moderate) [...] Code Item Item Code Result Date %Hba1C Hvl374 % HbA1c 66992- 6 6.5 % 11/29/2017 %Hba1C Igz481 Gluc Ave 140 mg/dL 11/29/2017 Cbc With [...] 30.6 pg 11/29/2017 Cbc With Differential Ord2 [place]% 8.0 % 11/29/2017 Cbc With Differential Ord2 [...] 1.46 K/ul 11/29/2017 Cbc With Differential Ord2 [place] ABS# 0.6 K/ul 11/29/2017 Cbc With Differential Ord2 Eos ABS# 0.2 K/ul 11/29/2017 Cbc With Differential Ord2 Baso ABS# 0.0 K/ul 11/29/2017 Comp Metabolic Xkl537 NA 140 mEq/L 11/29/2017 Comp Metabolic Prr078 K 3.6 mEq/L 11/29/2017 Comp Metabolic Npr601 CL 106 mEq/L 11/29/2017 Comp Metabolic Wls074 CO2 24.0 mEq/L 11/29/2017 Comp Metabolic Iws014 ANION GAP 14 11/29/2017 Comp Metabolic Jnw262 GLUCOSE 151 mg/dL 11/29/2017 Comp Metabolic Ugo419 Creat 1.2 mg/dL 11/29/2017 Comp Metabolic Fiy019 eGFR 61 ml/min/1.73m2 11/29/2017 Comp Metabolic Lpc911 BUN 34 mg/dL 11/29/2017 Comp Metabolic Hap089 B/C Ratio 28.3 Ratio 11/29/2017 Comp Metabolic Cbe263 CALCIUM 8.9 mg/dL 11/29/2017 Comp Metabolic Jei046 ALK PHOS 69 U/L 11/29/2017 Comp Metabolic Ora156 AST(SGOT) 13 U/L 11/29/2017 Comp Metabolic Eds072 ALT(SGPT) 16 U/L 11/29/2017 Comp Metabolic Nvp738 BILI T 0.7 mg/dL 11/29/2017 Comp Metabolic Pyo354 ALBUMIN 3.5 g/dL 11/29/2017 Comp Metabolic Xoh331 TPRO 5.7 g/dL 11/29/2017 Comp Metabolic Iab636 GLOB 2.2 g/dL 11/29/2017 Comp Metabolic Veu261 A/G Ratio 1.6 Ratio 11/29/2017 Comp Metabolic Fli224 Osmo 290 mOsmo 11/29/2017 Lipid Ord30 CHOL 115 mg/dL 11/29/2017 Lipid Ord30 HDL 40.0 mg/dl 11/29/2017 Lipid Ord30 TRIG 114 mg/dL 11/29/2017 Lipid Ord30 LDL 52 mg/dL 11/29/2017 Lipid Ord30 C/HDL 2.9 Ratio 11/29/2017 Review of Systems System Result Effective [...] 1: 138/76 Code: 8480-6 BMI: 33.2 Code: 58089-0 Heart Rate 1: 83 bpm Height: 5'7" [...] data Encounters Encounter Performer Location Codes Date ([id number]) 89016 EST. PATIENT, LEVEL IV Diagnosis: Type 2 diabetes mellitus with hyperglycemia[ICD10: E11.65] Diagnosis: Essential (primary) hypertension[ICD10: I10] Diagnosis: Diarrhea, unspecified[ICD10: R19.7] Geneva Spaulding MD, [facility] CPT-4: 94354 02/27/2018 ([id number]) 50923 EST. PATIENT, LEVEL IV Diagnosis: Essential (primary) hypertension[ICD10: I10] Diagnosis: Type 2 diabetes mellitus with hyperglycemia[ICD10: E11.65] Diagnosis: Chronic kidney disease, stage 3 (moderate)[ICD10: N18.3] Diagnosis: Cervicalgia[ICD10: M54.2] Geneva Spaulding MD, [facility] CPT-4: 71787 11/28/2017 ([id number]) 72207 EST. PATIENT, LEVEL III Diagnosis: Essential (primary) hypertension[ICD10: I10] Diagnosis: Type 2 diabetes mellitus with hyperglycemia[ICD10: E11.65] Diagnosis: Foot drop, left foot[ICD10: M21.372] Geneva Spaulding MD, [facility] CPT-4: 37854 08/29/2017 OFFICE VISIT, NEW - LEVEL 4 Diagnosis: Essential (primary) hypertension[ICD10: I10] Diagnosis: Type 2 diabetes mellitus with hyperglycemia[ICD10: E11.65] Diagnosis: Chronic kidney disease, stage 3 (moderate)[ICD10: N18.3] Diagnosis: Muscle weakness (generalized)[ICD10: M62.81] [facility] CPT-4: 67448 07/23/2017 Plan of Care Planned Activity Notes [...] change in blood pressure readings at home. Brxiwngg-gvefytgzenzo-xhuta probiotics as directed 02/27/2018 Appointment: Geneva Case WPtel: [phone] [phone] (15 min) Moderate 02/27/2018 Patient Education: Patient [...] labs 11/28/2017 Appointment: Geneva Case WPtel: [phone] [phone] (15 min) Moderate 11/28/2017 Patient Education: Patient [...] safer ambulation. 08/29/2017 Appointment: Geneva Case WPtel: [address] [place], [place] [phone] (15 min) Moderate 08/29/2017 Patient Education: Patient [...] are starting to become less controlled. Generalized gyiaebkf-dgmsmiuuv-lfjeoukh PT- plan to move back to [place] when able 07/23/2017 Appointment: Geneva Case WPtel: [address] [place], [place] [phone] New Patient 07/23/2017 Patient Education: Patient Medication [...] are starting to become less controlled. Generalized wagjqegx-edxihifty-wuqspayl PT-plan to move back to [place] when able PROBIOTIC BID X 1 WEEK [...] change in blood pressure readings at home. Fhamdsgr-sbdiildbpate-tlygr probiotics as directed . Hypertension - well [...]
--- OUTSIDE RECORDS SUMMARY | 2018-08-21 10:37 | XMS REPORT | CCD ---
Author Author Geneva Case MD, [facility] Address [address] [place] [address] Phone Care Team Providers Care Acid Bleacher Name Role Phone PP Unavailable CCM Unavailable Summary Purpose Interface Exchange Insurance Providers Payer name Policy type / Coverage type Covered libertarian ID Effective Begin Date Effective End Date WPS Medicare Part B Medicare Part B [id number] Unknown [employer] Medicare Part B [id number] Unknown Family history Mother Diagnosis Age At Onset No Known Diseases N/A Father Diagnosis Age At Onset No Known Diseases N/A Social History Social History Element Codes Description Effective Dates Living arrangements Unknown Assisted Living [facility] 11/28/2017 Marital status Unknown 07/23/2017 Employment Unknown [...] Fill Instructions tamsulosin 0.4 mg capsule RxNorm: 651977 TAKE 1 CAPSULE BY MOUTH ONCE DAILY 03/10/2018 08/06/2018 Active Generic For:FLOMAX 0.4MG 03/10/2018 10:12:59 AM Jardiance 10 mg tablet RxNorm: 7861283 1 Tablet(s) PO daily 02/20/2018 08/18/2018 Active Jardiance 10 mg tablet RxNorm: 0502362 1 Tablet(s) PO daily 02/20/2018 02/19/2018 Inactive Plavix 75 mg tablet RxNorm: 520407 1 Tablet(s) PO QHS 02/12/2018 06/11/2018 Active tamsulosin 0.4 mg capsule RxNorm: 248125 1 Capsule(s) PO daily 02/12/2018 03/09/2018 Inactive Tylenol 325 mg tablet RxNorm: 243323 1 Tablet(s) PO QHS and every 6 hours prn 02/03/2018 06/02/2018 Active loperamide 2 mg tablet RxNorm: 671579 2 after 1st stool & 1 after each add/max 4 in 24 hours Tablet(s) PO 02/03/2018 06/02/2018 Active Tylenol 325 mg tablet RxNorm: 546141 1 Tablet(s) PO QHS and every 6 hours prn 02/03/2018 02/02/2018 Inactive loperamide 2 mg tablet RxNorm: 091216 2 after 1st stool & 1 after each add/max 4 in 24 hours Tablet(s) PO 02/03/2018 02/02/2018 Inactive Vitamin B-12 1,000 mcg tablet RxNorm: 205800 TAKE 1 TABLET BY MOUTH ONCE DAILY 01/27/2018 12/22/2018 Active 01/27/2018 10:10:15 AM glimepiride 2 mg tablet RxNorm: 417195 TAKE 1 TABLET BY MOUTH ONCE DAILY 01/27/2018 07/25/2018 Active Generic For:AMARYL 2MG 01/27/2018 10:09:58 AM Januvia 100 mg tablet RxNorm: 567477 TAKE 1 TABLET BY MOUTH ONCE DAILY 01/20/2018 02/19/2018 Inactive 01/20/2018 9:58:08 AM Alcohol Pads RxNorm: 288495 1 TOP UD 01/07/2018 No Stop Date Active amlodipine 5 mg tablet RxNorm: 606280 TAKE ONE TABLET BY MOUTH DAILY 01/06/2018 07/04/2018 Active Generic For:NORVASC 5MG 01/06/2018 10:33:58 AM N O T I C E Last quantity doesn't match original quantity gabapentin 100 mg capsule RxNorm: 819964 TAKE 1 CAPSULE BY MOUTH THREE TIMES DAILY 01/06/2018 06/04/2018 Active Generic For:NEURONTIN 100MG 01/06/2018 10:33:55 AM N O T I C E Last quantity doesn't match original quantity Protonix 40 mg tablet,delayed release RxNorm: 238991 TAKE 1 TABLET BY MOUTH EVERY MORNING 12/16/2017 04/14/2018 Active Generic For:PROTONIX 40MG Proscar 5 mg tablet RxNorm: 895976 TAKE 1 TABLET BY MOUTH ONCE DAILY 11/04/2017 05/02/2018 Active Generic For:PROSCAR 5MG 11/04/2017 9:47:27 AM Aspirin Low Dose 81 mg tablet,delayed release RxNorm: 931268 1 Tablet(s) PO Q 10/21/2017 10/15/2018 Active amlodipine 5 mg tablet RxNorm: 911914 TAKE ONE TABLET BY MOUTH DAILY 10/07/2017 01/04/2018 Inactive Generic For:NORVASC 5MG 10/07/2017 9:55:37 AM gabapentin 100 mg capsule RxNorm: 697775 TAKE 1 CAPSULE BY MOUTH THREE TIMES DAILY 10/07/2017 01/04/2018 Inactive Generic For:NEURONTIN 100MG 10/07/2017 9:55:26 AM Januvia 100 mg tablet RxNorm: 807794 TAKE 1 TABLET BY MOUTH ONCE DAILY 09/23/2017 01/19/2018 Inactive 09/23/2017 9:25:24 AM pravastatin 40 mg tablet RxNorm: 968380 TAKE ONE TABLET BY MOUTH EVERY NIGHT AT BEDTIME 09/19/2017 03/17/2018 Active Generic For:PRAVACHOL 40MG 09/19/2017 9:12:02 AM Protonix 40 mg tablet,delayed release RxNorm: 781359 TAKE 1 TABLET BY MOUTH EVERY MORNING 09/16/2017 12/15/2017 Inactive Generic For:PROTONIX 40MG 09/16/2017 9:50:22 AM amlodipine 5 mg tablet RxNorm: 256426 TAKE ONE TABLET BY MOUTH DAILY 09/09/2017 10/06/2017 Inactive Generic For:NORVASC 5MG 09/09/2017 9:16:37 AM gabapentin 100 mg capsule RxNorm: 034111 TAKE 1 CAPSULE BY MOUTH THREE TIMES DAILY 09/09/2017 10/06/2017 Inactive Generic For:NEURONTIN 100MG 09/09/2017 9:16:33 AM Vitamin D3 1,000 unit tablet RxNorm: 675923 1 Tablet(s) PO daily 09/04/2017 07/30/2018 Active Vitamin D3 1,000 unit tablet RxNorm: 143452 1 Tablet(s) PO daily 09/03/2017 09/03/2017 Inactive glimepiride 2 mg tablet RxNorm: 171495 TAKE 1 TABLET BY MOUTH ONCE DAILY 09/02/2017 01/26/2018 Inactive Generic For:AMARYL 2MG 09/02/2017 9:35:29 AM Vitamin B-12 1,000 mcg tablet RxNorm: 600844 TAKE 1 TABLET BY MOUTH ONCE DAILY 09/02/2017 01/26/2018 Inactive 09/02/2017 9:35:38 AM pravastatin 40 mg tablet RxNorm: 770788 1 Tablet(s) PO QHS 08/22/2017 08/21/2017 Inactive pravastatin 40 mg tablet RxNorm: 444382 1 Tablet(s) PO QHS 08/22/2017 09/18/2017 Inactive glimepiride 2 mg tablet RxNorm: 723695 1 Tablet(s) PO daily 07/24/2017 09/01/2017 Inactive hydrocodone 5 mg-acetaminophen 325 mg tablet RxNorm: 782877 1-2 Tablet(s) PO Q4H as needed for pain 07/23/2017 08/28/2017 Inactive allopurinol 100 mg tablet RxNorm: 573360 1 Tablet(s) PO BID No Start Date Active Proscar 5 mg tablet RxNorm: 622519 1 Tablet(s) PO daily No Start Date 11/03/2017 Inactive Metamucil oral packet RxNorm: 1 packet PO daily No Start Date 07/23/2017 Inactive Vitamin B-12 1,000 mcg tablet RxNorm: 381956 1 Tablet(s) PO daily No Start Date 09/01/2017 Inactive tamsulosin 0.4 mg capsule RxNorm: 719479 1 Capsule(s) PO daily No Start Date 02/11/2018 Inactive Plavix 75 mg tablet RxNorm: 035330 1 Tablet(s) PO QHS No Start Date 02/11/2018 Inactive Alcohol Pads RxNorm: 726182 1 TOP UD No Start Date 01/06/2018 Inactive Vitamin D3 1,000 unit tablet RxNorm: 661835 1 Tablet(s) PO daily No Start Date 09/02/2017 Inactive gabapentin 100 mg capsule RxNorm: 824467 1 Capsule(s) PO TID No Start Date 09/08/2017 Inactive olanzapine 5 mg tablet RxNorm: 974843 1 Tablet(s) PO QHS No Start Date 07/22/2017 Inactive Lipitor 40 mg tablet RxNorm: 765629 1 Tablet(s) PO QHS No Start Date 08/21/2017 Inactive Januvia 100 mg tablet RxNorm: 026971 1 Tablet(s) PO QHS No Start Date 09/22/2017 Inactive folic acid 1 mg tablet RxNorm: 676782 1 Tablet(s) PO daily No Start Date 07/23/2017 Inactive hydrocodone 5 mg-acetaminophen 325 mg tablet RxNorm: 731145 1 Tablet(s) PO Q4H as needed for pain No Start Date 07/22/2017 Inactive Protonix 40 mg tablet,delayed release RxNorm: 988778 1 Tablet(s) PO daily No Start Date 09/15/2017 Inactive amlodipine 5 mg tablet RxNorm: 835981 1 Tablet(s) PO daily No Start Date 09/08/2017 Inactive Aspirin Low Dose 81 mg tablet,delayed release RxNorm: 098388 1 Tablet(s) PO QHS No Start Date [...] 30.6 pg 11/29/2017 Cbc With Differential Ord2 [place]% 8.0 % 11/29/2017 Cbc With Differential Ord2 [...] 1.46 K/ul 11/29/2017 Cbc With Differential Ord2 [place] ABS# 0.6 K/ul 11/29/2017 Cbc With Differential Ord2 Eos ABS# 0.2 K/ul 11/29/2017 Cbc With Differential Ord2 Baso ABS# 0.0 K/ul 11/29/2017 Lipid Ord30 CHOL 115 mg/dL 11/29/2017 Lipid Ord30 HDL 40.0 mg/dl 11/29/2017 Lipid Ord30 TRIG 114 mg/dL 11/29/2017 Lipid Ord30 LDL 52 mg/dL 11/29/2017 Lipid Ord30 C/HDL 2.9 Ratio 11/29/2017 %Hba1C Ufw937 % HbA1c 39662- 6 6.5 % 11/29/2017 %Hba1C Tdf563 Gluc Ave 140 mg/dL 11/29/2017 Comp Metabolic Dqr094 NA 140 mEq/L 11/29/2017 Comp Metabolic Iyv187 K 3.6 mEq/L 11/29/2017 Comp Metabolic Yvu037 CL 106 mEq/L 11/29/2017 Comp Metabolic Zqx365 CO2 24.0 mEq/L 11/29/2017 Comp Metabolic Sen569 ANION GAP 14 11/29/2017 Comp Metabolic Qks496 GLUCOSE 151 mg/dL 11/29/2017 Comp Metabolic Ddh570 Creat 1.2 mg/dL 11/29/2017 Comp Metabolic Qer724 eGFR 61 ml/min/1.73m2 11/29/2017 Comp Metabolic Oar255 BUN 34 mg/dL 11/29/2017 Comp Metabolic Vbc044 B/C Ratio 28.3 Ratio 11/29/2017 Comp Metabolic Uth638 CALCIUM 8.9 mg/dL 11/29/2017 Comp Metabolic Fnw464 ALK PHOS 69 U/L 11/29/2017 Comp Metabolic Uee163 AST(SGOT) 13 U/L 11/29/2017 Comp Metabolic Peq339 ALT(SGPT) 16 U/L 11/29/2017 Comp Metabolic Pjg849 BILI T 0.7 mg/dL 11/29/2017 Comp Metabolic Set018 ALBUMIN 3.5 g/dL 11/29/2017 Comp Metabolic Mze284 TPRO 5.7 g/dL 11/29/2017 Comp Metabolic Hje416 GLOB 2.2 g/dL 11/29/2017 Comp Metabolic Oia001 A/G Ratio 1.6 Ratio 11/29/2017 Comp Metabolic Mbn397 Osmo 290 mOsmo 11/29/2017 Review of Systems [...] 1: 138/76 Code: 8480-6 BMI: 33.2 Code: 33628-0 Heart Rate 1: 83 bpm Height: 5'7" [...] data Encounters Encounter Performer Location Codes Date ([id number]) [id number] EST. PATIENT, LEVEL IV Diagnosis: Type 2 diabetes mellitus with hyperglycemia[ICD10: E11.65] Diagnosis: Essential (primary) hypertension[ICD10: I10] Diagnosis: Diarrhea, unspecified[ICD10: R19.7] Geneva Spaulding MD, [facility] CPT-4: 67299 02/27/2018 ([id number] EST. PATIENT, LEVEL IV Diagnosis: Essential (primary) hypertension[ICD10: I10] Diagnosis: Type 2 diabetes mellitus with hyperglycemia[ICD10: E11.65] Diagnosis: Chronic kidney disease, stage 3 (moderate)[ICD10: N18.3] Diagnosis: Cervicalgia[ICD10: M54.2] Geneva Spaulding MD, [facility] CPT-4: 66750 11/28/2017 ([id number] EST. PATIENT, LEVEL III Diagnosis: Essential (primary) hypertension[ICD10: I10] Diagnosis: Type 2 diabetes mellitus with hyperglycemia[ICD10: E11.65] Diagnosis: Foot drop, left foot[ICD10: M21.372] Geneva Spaulding MD, [facility] CPT-4: 06744 08/29/2017 OFFICE VISIT, NEW - LEVEL 4 Diagnosis: Essential (primary) hypertension[ICD10: I10] Diagnosis: Type 2 diabetes mellitus with hyperglycemia[ICD10: E11.65] Diagnosis: Chronic kidney disease, stage 3 (moderate)[ICD10: N18.3] Diagnosis: Muscle weakness (generalized)[ICD10: M62.81] Geneva Spaulding MD, [facility] CPT-4: 00810 07/23/2017 Plan of Care Planned Activity Notes [...] change in blood pressure readings at home. Hwewfrlz-nllifenkkxaf-addbt probiotics as directed 02/27/2018 [facility]ment: [facility] [phone] [phone] (15 min) Moderate 02/27/2018 Patient Education: [...] labs 11/28/2017 [facility]ment: [facility] [phone] [phone] (15 min) Moderate 11/28/2017 Patient Education: [...] safer ambulation. 08/29/2017 Appointment: Geneva Case WPtel: [address] [place] [address] (15 min) Moderate 08/29/2017 Patient Education: Patient [...] are starting to become less controlled. Generalized tspdardg-iebrwtcoe-dibhdehi PT- plan to move back to [place] when able 07/23/2017 Appointment: Geneva Case WPtel: [address] [place] [address] New Patient 07/23/2017 Patient Education: Patient Medication [...] are starting to become less controlled. Generalized gvcnxwqj-udpflowqg-zrwtcvxu PT-plan to move back to [place] when able PROBIOTIC BID X 1 WEEK [...] change in blood pressure readings at home. Pdqovnmp-gzwoeqxofipq-qsfqt probiotics as directed . Hypertension - well [...]
--- OUTSIDE RECORDS SUMMARY | 2018-08-21 10:38 | XMS REPORT | CCD ---
Author Author Geneva Case MD, [facility] Address [address] [place] [address] Phone Care Team Providers Care Ship'S Officer Name Role Phone PP Unavailable CCM Unavailable Summary Purpose Interface Exchange Insurance Providers Payer name Policy type / Coverage type Covered republican ID Effective Begin Date Effective End Date WPS Medicare Part B Medicare Part B [id number] Unknown [employer] Medicare Part B [id number] Unknown Family history Mother Diagnosis Age At Onset No Known Diseases N/A Father Diagnosis Age At Onset No Known Diseases N/A Social History Social History Element Codes Description Effective Dates Living arrangements Unknown Assisted Living [place] 11/28/2017 Marital status Unknown 07/23/2017 Employment [...] Start Date Stop Date Status Fill Instructions Jardiance 10 mg tablet RxNorm: 6846278 1 Tablet(s) PO daily 02/20/2018 08/18/2018 Active Jardiance 10 mg tablet RxNorm: 1508889 1 Tablet(s) PO daily 02/20/2018 02/19/2018 Inactive Plavix 75 mg tablet RxNorm: 002106 1 Tablet(s) PO QHS 02/12/2018 06/11/2018 Active tamsulosin 0.4 mg capsule RxNorm: 665171 1 Capsule(s) PO daily 02/12/2018 06/11/2018 Active Tylenol 325 mg tablet RxNorm: 187437 1 Tablet(s) PO QHS and every 6 hours prn 02/03/2018 06/02/2018 Active loperamide 2 mg tablet RxNorm: 516659 2 after 1st stool & 1 after each add/max 4 in 24 hours Tablet(s) PO 02/03/2018 06/02/2018 Active Tylenol 325 mg tablet RxNorm: 326540 1 Tablet(s) PO QHS and every 6 hours prn 02/03/2018 02/02/2018 Inactive loperamide 2 mg tablet RxNorm: 255653 2 after 1st stool & 1 after each add/max 4 in 24 hours Tablet(s) PO 02/03/2018 02/02/2018 Inactive Vitamin B-12 1,000 mcg tablet RxNorm: 183478 TAKE 1 TABLET BY MOUTH ONCE DAILY 01/27/2018 12/22/2018 Active 01/27/2018 10:10:15 AM glimepiride 2 mg tablet RxNorm: 323821 TAKE 1 TABLET BY MOUTH ONCE DAILY 01/27/2018 07/25/2018 Active Generic For:AMARYL 2MG 01/27/2018 10:09:58 AM Januvia 100 mg tablet RxNorm: 475298 TAKE 1 TABLET BY MOUTH ONCE DAILY 01/20/2018 02/19/2018 Inactive 01/20/2018 9:58:08 AM Alcohol Pads RxNorm: 126527 1 [facility] 01/07/2018 No Stop Date Active amlodipine 5 mg tablet RxNorm: 515389 TAKE ONE TABLET BY MOUTH DAILY 01/06/2018 07/04/2018 Active Generic For:NORVASC 5MG 01/06/2018 10:33:58 AM N O T I C E Last quantity doesn't match original quantity gabapentin 100 mg capsule RxNorm: 182854 TAKE 1 CAPSULE BY MOUTH THREE TIMES DAILY 01/06/2018 06/04/2018 Active Generic For:NEURONTIN 100MG 01/06/2018 10:33:55 AM N O T I C E Last quantity doesn't match original quantity Protonix 40 mg tablet,delayed release RxNorm: 999246 TAKE 1 TABLET BY MOUTH EVERY MORNING 12/16/2017 04/14/2018 Active Generic For:PROTONIX 40MG Proscar 5 mg tablet RxNorm: 072024 TAKE 1 TABLET BY MOUTH ONCE DAILY 11/04/2017 05/02/2018 Active Generic For:PROSCAR 5MG 11/04/2017 9:47:27 AM Aspirin Low Dose 81 mg tablet,delayed release RxNorm: 626503 1 Tablet(s) PO QHS 10/21/2017 10/15/2018 Active amlodipine 5 mg tablet RxNorm: 065791 TAKE ONE TABLET BY MOUTH DAILY 10/07/2017 01/04/2018 Inactive Generic For:NORVASC 5MG 10/07/2017 9:55:37 AM gabapentin 100 mg capsule RxNorm: 097885 TAKE 1 CAPSULE BY MOUTH THREE TIMES DAILY 10/07/2017 01/04/2018 Inactive Generic For:NEURONTIN 100MG 10/07/2017 9:55:26 AM Januvia 100 mg tablet RxNorm: 543904 TAKE 1 TABLET BY MOUTH ONCE DAILY 09/23/2017 01/19/2018 Inactive 09/23/2017 9:25:24 AM pravastatin 40 mg tablet RxNorm: 050760 TAKE ONE TABLET BY MOUTH EVERY NIGHT AT BEDTIME 09/19/2017 03/17/2018 Active Generic For:PRAVACHOL 40MG 09/19/2017 9:12:02 AM Protonix 40 mg tablet,delayed release RxNorm: 768916 TAKE 1 TABLET BY MOUTH EVERY MORNING 09/16/2017 12/15/2017 Inactive Generic For:PROTONIX 40MG 09/16/2017 9:50:22 AM amlodipine 5 mg tablet RxNorm: 992935 TAKE ONE TABLET BY MOUTH DAILY 09/09/2017 10/06/2017 Inactive Generic For:NORVASC 5MG 09/09/2017 9:16:37 AM gabapentin 100 mg capsule RxNorm: 283879 TAKE 1 CAPSULE BY MOUTH THREE TIMES DAILY 09/09/2017 10/06/2017 Inactive Generic For:NEURONTIN 100MG 09/09/2017 9:16:33 AM Vitamin D3 1,000 unit tablet RxNorm: 508595 1 Tablet(s) PO daily 09/04/2017 07/30/2018 Active Vitamin D3 1,000 unit tablet RxNorm: 940761 1 Tablet(s) PO daily 09/03/2017 09/03/2017 Inactive glimepiride 2 mg tablet RxNorm: 868787 TAKE 1 TABLET BY MOUTH ONCE DAILY 09/02/2017 01/26/2018 Inactive Generic For:AMARYL 2MG 09/02/2017 9:35:29 AM Vitamin B-12 1,000 mcg tablet RxNorm: 838869 TAKE 1 TABLET BY MOUTH ONCE DAILY 09/02/2017 01/26/2018 Inactive 09/02/2017 9:35:38 AM pravastatin 40 mg tablet RxNorm: 310108 1 Tablet(s) PO QHS 08/22/2017 08/21/2017 Inactive pravastatin 40 mg tablet RxNorm: 061606 1 Tablet(s) PO QHS 08/22/2017 09/18/2017 Inactive glimepiride 2 mg tablet RxNorm: 524794 1 Tablet(s) PO daily 07/24/2017 09/01/2017 Inactive hydrocodone 5 mg-acetaminophen 325 mg tablet RxNorm: 225936 1-2 Tablet(s) PO Q4H as needed for pain 07/23/2017 08/28/2017 Inactive allopurinol 100 mg tablet RxNorm: 882138 1 Tablet(s) PO BID No Start Date Active Proscar 5 mg tablet RxNorm: 796589 1 Tablet(s) PO daily No Start Date 11/03/2017 Inactive Metamucil oral packet RxNorm: 1 packet PO daily No Start Date 07/23/2017 Inactive Vitamin B-12 1,000 mcg tablet RxNorm: 965257 1 Tablet(s) PO daily No Start Date 09/01/2017 Inactive tamsulosin 0.4 mg capsule RxNorm: 560218 1 Capsule(s) PO daily No Start Date 02/11/2018 Inactive Plavix 75 mg tablet RxNorm: 086494 1 Tablet(s) PO QHS No Start Date 02/11/2018 Inactive Alcohol Pads RxNorm: 810465 1 [facility] No Start Date 01/06/2018 Inactive Vitamin D3 1,000 unit tablet RxNorm: 320538 1 Tablet(s) PO daily No Start Date 09/02/2017 Inactive gabapentin 100 mg capsule RxNorm: 196805 1 Capsule(s) PO TID No Start Date 09/08/2017 Inactive olanzapine 5 mg tablet RxNorm: 930402 1 Tablet(s) PO QHS No Start Date 07/22/2017 Inactive Lipitor 40 mg tablet RxNorm: 513441 1 Tablet(s) PO QHS No Start Date 08/21/2017 Inactive Januvia 100 mg tablet RxNorm: 555059 1 Tablet(s) PO QHS No Start Date 09/22/2017 Inactive folic acid 1 mg tablet RxNorm: 584833 1 Tablet(s) PO daily No Start Date 07/23/2017 Inactive hydrocodone 5 mg-acetaminophen 325 mg tablet RxNorm: 543515 1 Tablet(s) PO Q4H as needed for pain No Start Date 07/22/2017 Inactive Protonix 40 mg tablet,delayed release RxNorm: 275374 1 Tablet(s) PO daily No Start Date 09/15/2017 Inactive amlodipine 5 mg tablet RxNorm: 849903 1 Tablet(s) PO daily No Start Date 09/08/2017 Inactive Aspirin Low Dose 81 mg tablet,delayed release RxNorm: 738895 1 Tablet(s) PO QHS No Start Date [...] 30.6 pg 11/29/2017 Cbc With Differential Ord2 [place]% 8.0 % 11/29/2017 Cbc With Differential Ord2 MCHC 32.4 pg 11/29/2017 Cbc With Differential Ord2 Eos% 3.2 % 11/29/2017 Cbc With Differential Ord2 Baso% 0.5 % 11/29/2017 Cbc With Differential Ord2 PLT 211 K/ul 11/29/2017 Cbc With Differential Ord2 RDW 14.9 % 11/29/2017 Cbc With Differential Ord2 Neut ABS# 5.09 K/ul 11/29/2017 Cbc With Differential Ord2 Lymph ABS# 1.46 K/ul 11/29/2017 Cbc With Differential Ord2 [place] ABS# 0.6 K/ul 11/29/2017 Cbc With Differential Ord2 Eos ABS# 0.2 K/ul 11/29/2017 Cbc With Differential Ord2 Baso ABS# 0.0 K/ul 11/29/2017 Lipid Ord30 CHOL 115 mg/dL 11/29/2017 Lipid Ord30 HDL 40.0 mg/dl 11/29/2017 Lipid Ord30 TRIG 114 mg/dL 11/29/2017 Lipid Ord30 LDL 52 mg/dL 11/29/2017 Lipid Ord30 C/HDL 2.9 Ratio 11/29/2017 %Hba1C Jgi522 % HbA1c 55120- 6 6.5 % 11/29/2017 %Hba1C Rxu934 Gluc Ave 140 mg/dL 11/29/2017 Comp Metabolic Qrr288 NA 140 mEq/L 11/29/2017 Comp Metabolic Ltw136 K 3.6 mEq/L 11/29/2017 Comp Metabolic Nxe614 CL 106 mEq/L 11/29/2017 Comp Metabolic Ctq460 CO2 24.0 mEq/L 11/29/2017 Comp Metabolic Xmt220 ANION GAP 14 11/29/2017 Comp Metabolic Vex038 GLUCOSE 151 mg/dL 11/29/2017 Comp Metabolic Zai804 Creat 1.2 mg/dL 11/29/2017 Comp Metabolic Hav201 eGFR 61 ml/min/1.73m2 11/29/2017 Comp Metabolic Tng802 BUN 34 mg/dL 11/29/2017 Comp Metabolic Eqs849 B/C Ratio 28.3 Ratio 11/29/2017 Comp Metabolic Jjl367 CALCIUM 8.9 mg/dL 11/29/2017 Comp Metabolic Jao983 ALK PHOS 69 U/L 11/29/2017 Comp Metabolic Mqy341 AST(SGOT) 13 U/L 11/29/2017 Comp Metabolic Xpd035 ALT(SGPT) 16 U/L 11/29/2017 Comp Metabolic Csr398 BILI T 0.7 mg/dL 11/29/2017 Comp Metabolic Wzv385 ALBUMIN 3.5 g/dL 11/29/2017 Comp Metabolic Fii573 TPRO 5.7 g/dL 11/29/2017 Comp Metabolic Ads660 GLOB 2.2 g/dL 11/29/2017 Comp Metabolic Zky792 A/G Ratio 1.6 Ratio 11/29/2017 Comp Metabolic Cov708 Osmo 290 mOsmo 11/29/2017 Review of Systems [...] 1: 138/76 Code: 8480-6 BMI: 33.2 Code: 17488-5 Heart Rate 1: 83 bpm Height: 5'7" [...] Directive data Encounters Encounter Performer Location Codes ([id number]) [id number] EST. PATIENT, LEVEL IV Diagnosis: Type 2 diabetes mellitus with hyperglycemia[ICD10: E11.65] Diagnosis: Essential (primary) hypertension[ICD10: I10] Diagnosis: Diarrhea, unspecified[ICD10: R19.7] [facility] CPT-4: 06176 02/27/2018 ([id number]) [id number] EST. PATIENT, LEVEL IV Diagnosis: Essential (primary) hypertension[ICD10: I10] Diagnosis: Type 2 diabetes mellitus with hyperglycemia[ICD10: E11.65] Diagnosis: Chronic kidney disease, stage 3 (moderate)[ICD10: N18.3] Diagnosis: Cervicalgia[ICD10: M54.2] Geneva Spaulding MD, [facility] CPT-4: 31761 11/28/2017 ([id number]) [id number] EST. PATIENT, LEVEL III Diagnosis: Essential (primary) hypertension[ICD10: I10] Diagnosis: Type 2 diabetes mellitus with hyperglycemia[ICD10: E11.65] Diagnosis: Foot drop, left foot[ICD10: M21.372] Geneva Spaulding MD, [facility] CPT-4: 08671 08/29/2017 OFFICE VISIT, NEW - LEVEL 4 Diagnosis: Essential (primary) hypertension[ICD10: I10] Diagnosis: Type 2 diabetes mellitus with hyperglycemia[ICD10: E11.65] Diagnosis: Chronic kidney disease, stage 3 (moderate)[ICD10: N18.3] Diagnosis: Muscle weakness (generalized)[ICD10: M62.81] Geneva Spaulding MD, [facility] CPT-4: 72833 07/23/2017 Plan of Care Planned Activity Notes [...] change in blood pressure readings at home. Sivllxiy-twjchqguegjj-gubzs probiotics as directed 02/27/2018 Appointment: Geneva Case WPtel: [address] [place], [place] [phone] (15 min) Moderate 02/27/2018 Patient Education: Patient [...] labs 11/28/2017 Appointment: Geneva Case [facility]Ptel[phone] (15 min) Moderate 11/28/2017 Patient Education: [...] ambulation. 08/29/2017 Appointment: Geneva Case WPtel: [facility] [place] [address] (15 min) Moderate 08/29/2017 Patient Education: Patient [...] are starting to become less controlled. Generalized rsyvwclq-cghgyxivn-zexmigcq PT- plan to move back to [place] when able 07/23/2017 Appointment: Geneva Case WPtel: [address] [place], [place] [phone] New Patient 07/23/2017 Patient Education: Patient Medication [...] are starting to become less controlled. Generalized brnunxnr-wtyvqtayw-phceklht PT-plan to move back to [place] when able PROBIOTIC BID X 1 WEEK [...] change in blood pressure readings at home. Cqoojmnj-jbqhiyqhjqok-ixuix probiotics as directed . Hypertension - well [...]
--- OUTSIDE RECORDS SUMMARY | 2018-08-21 10:39 | XMS REPORT | CCD ---
Author Author Geneva Case MD, [facility] Address [address] [place] [address] Phone Care Team Providers Care Conference Director Name Role Phone PP Unavailable CCM Unavailable Summary Purpose Interface Exchange Insurance Providers Payer name Policy type / Coverage type Covered libertarian ID Effective Begin Date Effective End Date WPS Medicare Part B Medicare Part B [id number] Unknown [employer] Medicare Part B [id number] Unknown Family history Mother Diagnosis Age At Onset No Known Diseases N/A Father Diagnosis Age At Onset No Known Diseases N/A Social History Social History Element Codes Description Effective Dates Living arrangements Unknown Assisted Living [place] 11/28/2017 Marital status Unknown 07/23/2017 Employment Unknown [...] Fill Instructions Jardiance 10 mg tablet RxNorm: 3604974 1 Tablet(s) PO daily 02/20/2018 08/18/2018 Active Jardiance 10 mg tablet RxNorm: 3181502 1 Tablet(s) PO daily 02/20/2018 02/19/2018 Inactive Plavix 75 mg tablet RxNorm: 055951 1 Tablet(s) PO QHS 02/12/2018 06/11/2018 Active tamsulosin 0.4 mg capsule RxNorm: 901585 1 Capsule(s) PO daily 02/12/2018 06/11/2018 Active Tylenol 325 mg tablet RxNorm: 451733 1 Tablet(s) PO QHS and every 6 hours prn 02/03/2018 06/02/2018 Active loperamide 2 mg tablet RxNorm: 336261 2 after 1st stool & 1 after each add/max 4 in 24 hours Tablet(s) PO 02/03/2018 06/02/2018 Active Tylenol 325 mg tablet RxNorm: 115979 1 Tablet(s) PO QHS and every 6 hours prn 02/03/2018 02/02/2018 Inactive loperamide 2 mg tablet RxNorm: 727321 2 after 1st stool & 1 after each add/max 4 in 24 hours Tablet(s) PO 02/03/2018 02/02/2018 Inactive Vitamin B-12 1,000 mcg tablet RxNorm: 504235 TAKE 1 TABLET BY MOUTH ONCE DAILY 01/27/2018 12/22/2018 Active 01/27/2018 10:10:15 AM glimepiride 2 mg tablet RxNorm: 662452 TAKE 1 TABLET BY MOUTH ONCE DAILY 01/27/2018 07/25/2018 Active Generic For:AMARYL 2MG 01/27/2018 10:09:58 AM Januvia 100 mg tablet RxNorm: 510916 TAKE 1 TABLET BY MOUTH ONCE DAILY 01/20/2018 02/19/2018 Inactive 01/20/2018 9:58:08 AM Alcohol Pads RxNorm: 679457 1 [facility] 01/07/2018 No Stop Date Active amlodipine 5 mg tablet RxNorm: 741826 TAKE ONE TABLET BY MOUTH DAILY 01/06/2018 07/04/2018 Active Generic For:NORVASC 5MG 01/06/2018 10:33:58 AM N O T I C E Last quantity doesn't match original quantity gabapentin 100 mg capsule RxNorm: 361414 TAKE 1 CAPSULE BY MOUTH THREE TIMES DAILY 01/06/2018 06/04/2018 Active Generic For:NEURONTIN 100MG 01/06/2018 10:33:55 AM N O T I C E Last quantity doesn't match original quantity Protonix 40 mg tablet,delayed release RxNorm: 019940 TAKE 1 TABLET BY MOUTH EVERY MORNING 12/16/2017 04/14/2018 Active Generic For:PROTONIX 40MG Proscar 5 mg tablet RxNorm: 310052 TAKE 1 TABLET BY MOUTH ONCE DAILY 11/04/2017 05/02/2018 Active Generic For:PROSCAR 5MG 11/04/2017 9:47:27 AM Aspirin Low Dose 81 mg tablet,delayed release RxNorm: 047779 1 Tablet(s) PO QHS 10/21/2017 10/15/2018 Active amlodipine 5 mg tablet RxNorm: 097921 TAKE ONE TABLET BY MOUTH DAILY 10/07/2017 01/04/2018 Inactive Generic For:NORVASC 5MG 10/07/2017 9:55:37 AM gabapentin 100 mg capsule RxNorm: 386071 TAKE 1 CAPSULE BY MOUTH THREE TIMES DAILY 10/07/2017 01/04/2018 Inactive Generic For:NEURONTIN 100MG 10/07/2017 9:55:26 AM Januvia 100 mg tablet RxNorm: 788851 TAKE 1 TABLET BY MOUTH ONCE DAILY 09/23/2017 01/19/2018 Inactive 09/23/2017 9:25:24 AM pravastatin 40 mg tablet RxNorm: 075116 TAKE ONE TABLET BY MOUTH EVERY NIGHT AT BEDTIME 09/19/2017 03/17/2018 Active Generic For:PRAVACHOL 40MG 09/19/2017 9:12:02 AM Protonix 40 mg tablet,delayed release RxNorm: 192470 TAKE 1 TABLET BY MOUTH EVERY MORNING 09/16/2017 12/15/2017 Inactive Generic For:PROTONIX 40MG 09/16/2017 9:50:22 AM amlodipine 5 mg tablet RxNorm: 079179 TAKE ONE TABLET BY MOUTH DAILY 09/09/2017 10/06/2017 Inactive Generic For:NORVASC 5MG 09/09/2017 9:16:37 AM gabapentin 100 mg capsule RxNorm: 406906 TAKE 1 CAPSULE BY MOUTH THREE TIMES DAILY 09/09/2017 10/06/2017 Inactive Generic For:NEURONTIN 100MG 09/09/2017 9:16:33 AM Vitamin D3 1,000 unit tablet RxNorm: 717587 1 Tablet(s) PO daily 09/04/2017 07/30/2018 Active Vitamin D3 1,000 unit tablet RxNorm: 048708 1 Tablet(s) PO daily 09/03/2017 09/03/2017 Inactive glimepiride 2 mg tablet RxNorm: 908189 TAKE 1 TABLET BY MOUTH ONCE DAILY 09/02/2017 01/26/2018 Inactive Generic For:AMARYL 2MG 09/02/2017 9:35:29 AM Vitamin B-12 1,000 mcg tablet RxNorm: 214389 TAKE 1 TABLET BY MOUTH ONCE DAILY 09/02/2017 01/26/2018 Inactive 09/02/2017 9:35:38 AM pravastatin 40 mg tablet RxNorm: 964330 1 Tablet(s) PO QHS 08/22/2017 08/21/2017 Inactive pravastatin 40 mg tablet RxNorm: 519527 1 Tablet(s) PO QHS 08/22/2017 09/18/2017 Inactive glimepiride 2 mg tablet RxNorm: 675043 1 Tablet(s) PO daily 07/24/2017 09/01/2017 Inactive hydrocodone 5 mg-acetaminophen 325 mg tablet RxNorm: 715915 1-2 Tablet(s) PO Q4H as needed for pain 07/23/2017 08/28/2017 Inactive allopurinol 100 mg tablet RxNorm: 705696 1 Tablet(s) PO BID No Start Date Active Proscar 5 mg tablet RxNorm: 485930 1 Tablet(s) PO daily No Start Date 11/03/2017 Inactive Metamucil oral packet RxNorm: 1 packet PO daily No Start Date 07/23/2017 Inactive Vitamin B-12 1,000 mcg tablet RxNorm: 417914 1 Tablet(s) PO daily No Start Date 09/01/2017 Inactive tamsulosin 0.4 mg capsule RxNorm: 798726 1 Capsule(s) PO daily No Start Date 02/11/2018 Inactive Plavix 75 mg tablet RxNorm: 576818 1 Tablet(s) PO QHS No Start Date 02/11/2018 Inactive Alcohol Pads RxNorm: 621697 1 [facility] No Start Date 01/06/2018 Inactive Vitamin D3 1,000 unit tablet RxNorm: 245612 1 Tablet(s) PO daily No Start Date 09/02/2017 Inactive gabapentin 100 mg capsule RxNorm: 684852 1 Capsule(s) PO TID No Start Date 09/08/2017 Inactive olanzapine 5 mg tablet RxNorm: 301873 1 Tablet(s) PO QHS No Start Date 07/22/2017 Inactive Lipitor 40 mg tablet RxNorm: 635356 1 Tablet(s) PO QHS No Start Date 08/21/2017 Inactive Januvia 100 mg tablet RxNorm: 553347 1 Tablet(s) PO QHS No Start Date 09/22/2017 Inactive folic acid 1 mg tablet RxNorm: 623393 1 Tablet(s) PO daily No Start Date 07/23/2017 Inactive hydrocodone 5 mg-acetaminophen 325 mg tablet RxNorm: 430743 1 Tablet(s) PO Q4H as needed for pain No Start Date 07/22/2017 Inactive Protonix 40 mg tablet,delayed release RxNorm: 060119 1 Tablet(s) PO daily No Start Date 09/15/2017 Inactive amlodipine 5 mg tablet RxNorm: 606997 1 Tablet(s) PO daily No Start Date 09/08/2017 Inactive Aspirin Low Dose 81 mg tablet,delayed release RxNorm: 760904 1 Tablet(s) PO QHS No Start Date [...] 30.6 pg 11/29/2017 Cbc With Differential Ord2 [place]% 8.0 % 11/29/2017 Cbc With Differential Ord2 [...] 1.46 K/ul 11/29/2017 Cbc With Differential Ord2 [place] ABS# 0.6 K/ul 11/29/2017 Cbc With Differential Ord2 Eos ABS# 0.2 K/ul 11/29/2017 Cbc With Differential Ord2 Baso ABS# 0.0 K/ul 11/29/2017 Lipid Ord30 CHOL 115 mg/dL 11/29/2017 Lipid Ord30 HDL 40.0 mg/dl 11/29/2017 Lipid Ord30 TRIG 114 mg/dL 11/29/2017 Lipid Ord30 LDL 52 mg/dL 11/29/2017 Lipid Ord30 C/HDL 2.9 Ratio 11/29/2017 %Hba1C Hbu072 % HbA1c 77699- 6 6.5 % 11/29/2017 %Hba1C Qxw800 Gluc Ave 140 mg/dL 11/29/2017 Comp Metabolic Imi902 NA 140 mEq/L 11/29/2017 Comp Metabolic Mcd229 K 3.6 mEq/L 11/29/2017 Comp Metabolic Xjo888 CL 106 mEq/L 11/29/2017 Comp Metabolic Yeh242 CO2 24.0 mEq/L 11/29/2017 Comp Metabolic Dzf248 ANION GAP 14 11/29/2017 Comp Metabolic Zba471 GLUCOSE 151 mg/dL 11/29/2017 Comp Metabolic Aea481 Creat 1.2 mg/dL 11/29/2017 Comp Metabolic Pbu966 eGFR 61 ml/min/1.73m2 11/29/2017 Comp Metabolic Uol559 BUN 34 mg/dL 11/29/2017 Comp Metabolic Qmj563 B/C Ratio 28.3 Ratio 11/29/2017 Comp Metabolic Tyy149 CALCIUM 8.9 mg/dL 11/29/2017 Comp Metabolic Cmh210 ALK PHOS 69 U/L 11/29/2017 Comp Metabolic Krp537 AST(SGOT) 13 U/L 11/29/2017 Comp Metabolic Bij145 ALT(SGPT) 16 U/L 11/29/2017 Comp Metabolic Irq436 BILI T 0.7 mg/dL 11/29/2017 Comp Metabolic Ckg805 ALBUMIN 3.5 g/dL 11/29/2017 Comp Metabolic Wbv879 TPRO 5.7 g/dL 11/29/2017 Comp Metabolic Krd642 GLOB 2.2 g/dL 11/29/2017 Comp Metabolic Nga288 A/G Ratio 1.6 Ratio 11/29/2017 Comp Metabolic Lns207 Osmo 290 mOsmo 11/29/2017 Review of Systems [...] 1: 138/76 Code: 8480-6 BMI: 33.2 Code: 33859-7 Heart Rate 1: 83 bpm Height: 5'7" [...] Directive data Encounters Encounter Performer Location Codes ([id number]) [id number] EST. PATIENT, LEVEL IV Diagnosis: Type 2 diabetes mellitus with hyperglycemia[ICD10: E11.65] Diagnosis: Essential (primary) hypertension[ICD10: I10] Diagnosis: Diarrhea, unspecified[ICD10: R19.7] [facility] CPT-4: 63153 02/27/2018 ([id number]) 63097 EST. PATIENT, LEVEL IV Diagnosis: Essential (primary) hypertension[ICD10: I10] Diagnosis: Type 2 diabetes mellitus with hyperglycemia[ICD10: E11.65] Diagnosis: Chronic kidney disease, stage 3 (moderate)[ICD10: N18.3] Diagnosis: Cervicalgia[ICD10: M54.2] Geneva Spaulding MD, [facility] CPT-4: 89910 11/28/2017 ([id number]) [id number] EST. PATIENT, LEVEL III Diagnosis: Essential (primary) hypertension[ICD10: I10] Diagnosis: Type 2 diabetes mellitus with hyperglycemia[ICD10: E11.65] Diagnosis: Foot drop, left foot[ICD10: M21.372] Geneva Spaulding MD, [facility] CPT-4: 30418 08/29/2017 OFFICE VISIT, NEW - LEVEL 4 Diagnosis: Essential (primary) hypertension[ICD10: I10] Diagnosis: Type 2 diabetes mellitus with hyperglycemia[ICD10: E11.65] Diagnosis: Chronic kidney disease, stage 3 (moderate)[ICD10: N18.3] Diagnosis: Muscle weakness (generalized)[ICD10: M62.81] Geneva Spaulding MD, [facility] CPT-4: 50762 07/23/2017 Plan of Care Planned Activity Notes [...] change in blood pressure readings at home. Duydhbzj-havcfxlmaxwp-amjnu probiotics as directed 02/27/2018 Patient Education: Patient Medication Summary Completed [...] labs 11/28/2017 Appointment: Geneva [phone] (15 min) Moderate 11/28/2017 Patient Education: [...] safer ambulation. 08/29/2017 Appointment: Geneva Case WPtel: [address] [place] [address] (15 min) Moderate 08/29/2017 Patient Education: Patient [...] are starting to become less controlled. Generalized vtucujce-cdvynmwli-uulimeoz PT- plan to move back to [place] when able 07/23/2017 Appointment: Geneva Case WPtel: [address] [place], [place] [phone] [place] [address] New Patient 07/23/2017 Patient Education: Patient Medication [...] are starting to become less controlled. Generalized igowzjch-mvaghourw-uhhscpbl PT-plan to move back to [place] when able PROBIOTIC BID X 1 WEEK [...] change in blood pressure readings at home. Dmnnznjv-vxpotzzczkhr-mtzzm probiotics as directed . Hypertension - well [...]
--- OUTSIDE RECORDS SUMMARY | 2018-08-21 10:39 | XMS REPORT | CCD ---
Author Author Geneva Case MD, [facility] Address [address] [place] [address] Phone Care Team Providers Care Body Straightener Name Role Phone PP Unavailable CCM Unavailable Summary Purpose Interface Exchange Insurance Providers Payer name Policy type / Coverage type Covered republican ID Effective Begin Date Effective End Date WPS Medicare Part B Medicare Part B [id number] Unknown [employer] Medicare Part B [id number] Unknown Family history Mother Diagnosis Age At Onset No Known Diseases N/A Father Diagnosis Age At Onset No Known Diseases N/A Social History Social History Element Codes Description Effective Dates Living arrangements Unknown Assisted Living [place] 11/28/2017 Marital status Unknown 07/23/2017 Employment Unknown Retired 07/23/2017 Allergies, Adverse Reactions, Alerts Substance Reaction Codes Entered Date Inactivated Date Status * OTHER REACTION - SEE ANSWER BOX Metformin Unknown 07/23/2017 No Inactive Date Active Past Medical History Illness Codes Condition Status Onset Date Resolved Date Cervicalgia ICD-9: 723.1 ICD-10: M54.2 Active 11/28/2017 Unknown Chronic kidney disease, stage 3 (moderate) ICD-9: 585.3 ICD-10: N18.3 Active 07/23/2017 Unknown Essential (primary) hypertension ICD-9: 401.1 ICD-10: I10 Active 07/23/2017 Unknown Type 2 diabetes mellitus with hyperglycemia ICD-9: 250.02 ICD-10: E11.65 Active 07/23/2017 Unknown Foot drop, left foot ICD- 9: 736.79 ICD-10: M21.372 Active 08/29/2017 Unknown Muscle weakness (generalized) ICD-9: 728.87 ICD-10: M62.81 Active 07/23/2017 Unknown Problems Condition Codes Effective Dates Condition Status Cervicalgia ICD-9: 723.1 ICD-10: M54.2 11/28/2017 Active Chronic kidney disease, stage 3 (moderate) ICD-9: 585.3 ICD-10: N18.3 07/23/2017 Active Essential (primary) hypertension ICD-9: 401.1 ICD-10: I10 07/23/2017 Active Type 2 diabetes mellitus with hyperglycemia ICD-9: 250.02 ICD-10: E11.65 07/23/2017 Active Foot drop, left foot ICD- 9: 736.79 ICD-10: M21.372 08/29/2017 Active Muscle weakness (generalized) ICD-9: 728.87 ICD-10: M62.81 07/23/2017 Active Medications Medication Codes Instructions Start Date Stop Date Status Fill Instructions Jardiance 10 mg tablet RxNorm: 5037078 1 Tablet(s) PO daily 02/20/2018 08/18/2018 Active Jardiance 10 mg tablet RxNorm: 9000108 1 Tablet(s) PO daily 02/20/2018 02/19/2018 Inactive Plavix 75 mg tablet RxNorm: 569330 1 Tablet(s) PO QHS 02/12/2018 06/11/2018 Active tamsulosin 0.4 mg capsule RxNorm: 886676 1 Capsule(s) PO daily 02/12/2018 06/11/2018 Active Tylenol 325 mg tablet RxNorm: 575653 1 Tablet(s) PO QHS and every 6 hours prn 02/03/2018 06/02/2018 Active loperamide 2 mg tablet RxNorm: 963455 2 after 1st stool & 1 after each add/max 4 in 24 hours Tablet(s) PO 02/03/2018 06/02/2018 Active Tylenol 325 mg tablet RxNorm: 846160 1 Tablet(s) PO QHS and every 6 hours prn 02/03/2018 02/02/2018 Inactive loperamide 2 mg tablet RxNorm: 057459 2 after 1st stool & 1 after each add/max 4 in 24 hours Tablet(s) PO 02/03/2018 02/02/2018 Inactive Vitamin B-12 1,000 mcg tablet RxNorm: 779976 TAKE 1 TABLET BY MOUTH ONCE DAILY 01/27/2018 12/22/2018 Active 01/27/2018 10:10:15 AM glimepiride 2 mg tablet RxNorm: 090074 TAKE 1 TABLET BY MOUTH ONCE DAILY 01/27/2018 07/25/2018 Active Generic For:AMARYL 2MG 01/27/2018 10:09:58 AM Januvia 100 mg tablet RxNorm: 355558 TAKE 1 TABLET BY MOUTH ONCE DAILY 01/20/2018 02/19/2018 Inactive 01/20/2018 9:58:08 AM Alcohol Pads RxNorm: 703352 1 [facility] 01/07/2018 No Stop Date Active amlodipine 5 mg tablet RxNorm: 627993 TAKE ONE TABLET BY MOUTH DAILY 01/06/2018 07/04/2018 Active Generic For:NORVASC 5MG 01/06/2018 10:33:58 AM N O T I C E Last quantity doesn't match original quantity gabapentin 100 mg capsule RxNorm: 872554 TAKE 1 CAPSULE BY MOUTH THREE TIMES DAILY 01/06/2018 06/04/2018 Active Generic For:NEURONTIN 100MG 01/06/2018 10:33:55 AM N O T I C E Last quantity doesn't match original quantity Protonix 40 mg tablet,delayed release RxNorm: 894094 TAKE 1 TABLET BY MOUTH EVERY MORNING 12/16/2017 04/14/2018 Active Generic For:PROTONIX 40MG Proscar 5 mg tablet RxNorm: 166512 TAKE 1 TABLET BY MOUTH ONCE DAILY 11/04/2017 05/02/2018 Active Generic For:PROSCAR 5MG 11/04/2017 9:47:27 AM Aspirin Low Dose 81 mg tablet,delayed release RxNorm: 812895 1 Tablet(s) PO QHS 10/21/2017 10/15/2018 Active amlodipine 5 mg tablet RxNorm: 187299 TAKE ONE TABLET BY MOUTH DAILY 10/07/2017 01/04/2018 Inactive Generic For:NORVASC 5MG 10/07/2017 9:55:37 AM gabapentin 100 mg capsule RxNorm: 076954 TAKE 1 CAPSULE BY MOUTH THREE TIMES DAILY 10/07/2017 01/04/2018 Inactive Generic For:NEURONTIN 100MG 10/07/2017 9:55:26 AM Januvia 100 mg tablet RxNorm: 368594 TAKE 1 TABLET BY MOUTH ONCE DAILY 09/23/2017 01/19/2018 Inactive 09/23/2017 9:25:24 AM pravastatin 40 mg tablet RxNorm: 287163 TAKE ONE TABLET BY MOUTH EVERY NIGHT AT BEDTIME 09/19/2017 03/17/2018 Active Generic For:PRAVACHOL 40MG 09/19/2017 9:12:02 AM Protonix 40 mg tablet,delayed release RxNorm: 732667 TAKE 1 TABLET BY MOUTH EVERY MORNING 09/16/2017 12/15/2017 Inactive Generic For:PROTONIX 40MG 09/16/2017 9:50:22 AM amlodipine 5 mg tablet RxNorm: 343956 TAKE ONE TABLET BY MOUTH DAILY 09/09/2017 10/06/2017 Inactive Generic For:NORVASC 5MG 09/09/2017 9:16:37 AM gabapentin 100 mg capsule RxNorm: 977946 TAKE 1 CAPSULE BY MOUTH THREE TIMES DAILY 09/09/2017 10/06/2017 Inactive Generic For:NEURONTIN 100MG 09/09/2017 9:16:33 AM Vitamin D3 1,000 unit tablet RxNorm: 675627 1 Tablet(s) PO daily 09/04/2017 07/30/2018 Active Vitamin D3 1,000 unit tablet RxNorm: 510879 1 Tablet(s) PO daily 09/03/2017 09/03/2017 Inactive glimepiride 2 mg tablet RxNorm: 741821 TAKE 1 TABLET BY MOUTH ONCE DAILY 09/02/2017 01/26/2018 Inactive Generic For:AMARYL 2MG 09/02/2017 9:35:29 AM Vitamin B-12 1,000 mcg tablet RxNorm: 332683 TAKE 1 TABLET BY MOUTH ONCE DAILY 09/02/2017 01/26/2018 Inactive 09/02/2017 9:35:38 AM pravastatin 40 mg tablet RxNorm: 595318 1 Tablet(s) PO QHS 08/22/2017 08/21/2017 Inactive pravastatin 40 mg tablet RxNorm: 494825 1 Tablet(s) PO QHS 08/22/2017 09/18/2017 Inactive glimepiride 2 mg tablet RxNorm: 779879 1 Tablet(s) PO daily 07/24/2017 09/01/2017 Inactive hydrocodone 5 mg-acetaminophen 325 mg tablet RxNorm: 768729 1-2 Tablet(s) PO Q4H as needed for pain 07/23/2017 08/28/2017 Inactive allopurinol 100 mg tablet RxNorm: 748668 1 Tablet(s) PO BID No Start Date Active Proscar 5 mg tablet RxNorm: 893488 1 Tablet(s) PO daily No Start Date 11/03/2017 Inactive Metamucil oral packet RxNorm: 1 packet PO daily No Start Date 07/23/2017 Inactive Vitamin B-12 1,000 mcg tablet RxNorm: 166688 1 Tablet(s) PO daily No Start Date 09/01/2017 Inactive tamsulosin 0.4 mg capsule RxNorm: 896262 1 Capsule(s) PO daily No Start Date 02/11/2018 Inactive Plavix 75 mg tablet RxNorm: 278656 1 Tablet(s) PO QHS No Start Date 02/11/2018 Inactive Alcohol Pads RxNorm: 167494 1 TOP UD No Start Date 01/06/2018 Inactive Vitamin D3 1,000 unit tablet RxNorm: 967005 1 Tablet(s) PO daily No Start Date 09/02/2017 Inactive gabapentin 100 mg capsule RxNorm: 478219 1 Capsule(s) PO TID No Start Date 09/08/2017 Inactive olanzapine 5 mg tablet RxNorm: 638301 1 Tablet(s) PO QHS No Start Date 07/22/2017 Inactive Lipitor 40 mg tablet RxNorm: 643940 1 Tablet(s) PO QHS No Start Date 08/21/2017 Inactive Januvia 100 mg tablet RxNorm: 880175 1 Tablet(s) PO QHS No Start Date 09/22/2017 Inactive folic acid 1 mg tablet RxNorm: 037752 1 Tablet(s) PO daily No Start Date 07/23/2017 Inactive hydrocodone 5 mg-acetaminophen 325 mg tablet RxNorm: 666473 1 Tablet(s) PO Q4H as needed for pain No Start Date 07/22/2017 Inactive Protonix 40 mg tablet,delayed release RxNorm: 801142 1 Tablet(s) PO daily No Start Date 09/15/2017 Inactive amlodipine 5 mg tablet RxNorm: 557609 1 Tablet(s) PO daily No Start Date 09/08/2017 Inactive Aspirin Low Dose 81 mg tablet,delayed release RxNorm: 210841 1 Tablet(s) PO QHS No Start Date 10/20/2017 Inactive Medication Administered No Medication Administered data Immunizations No Immunization data Assessments Condition Codes Effective Dates Type 2 diabetes mellitus with hyperglycemia ICD-10: E11.65 ICD-9: 250.02 11/28/2017 Chronic kidney disease, stage 3 (moderate) ICD-10: N18.3 ICD-9: 585.3 11/28/2017 Essential (primary) hypertension ICD-10: I10 ICD-9: 401.1 11/28/2017 Cervicalgia ICD-10: M54.2 ICD-9: 723.1 11/28/2017 Foot drop, left foot ICD-10: M21.372 ICD-9: 736.79 08/29/2017 Muscle weakness (generalized) ICD-10: M62.81 ICD-9: 728.87 07/23/2017 Reason For Visit Reason For Visit Effective Dates Notes diabetes mellitus 11/28/2017 diabetes mellitus 08/29/2017 diabetes mellitus 07/23/2017 Results Observation Observation Code Item Item Code Result Date Cbc With Differential Ord2 WBC 7.42 K/ul 11/29/2017 Cbc With Differential Ord2 RBC 3.82 M/ul 11/29/2017 Cbc With Differential Ord2 HGB 11.7 g/dl 11/29/2017 Cbc With Differential Ord2 Neut% 68.6 % 11/29/2017 Cbc With Differential Ord2 HCT 36.1 % 11/29/2017 Cbc With Differential Ord2 MCV 94.5 fl 11/29/2017 Cbc With Differential Ord2 Lymph% 19.7 % 11/29/2017 Cbc With Differential Ord2 MCH 30.6 pg 11/29/2017 Cbc With Differential Ord2 [place]% 8.0 % 11/29/2017 Cbc With Differential Ord2 [...] 1.46 K/ul 11/29/2017 Cbc With Differential Ord2 [place] ABS# 0.6 K/ul 11/29/2017 Cbc With Differential Ord2 Eos ABS# 0.2 K/ul 11/29/2017 Cbc With Differential Ord2 Baso ABS# 0.0 K/ul 11/29/2017 Lipid Ord30 CHOL 115 mg/dL 11/29/2017 Lipid Ord30 HDL 40.0 mg/dl 11/29/2017 Lipid Ord30 TRIG 114 mg/dL 11/29/2017 Lipid Ord30 LDL 52 mg/dL 11/29/2017 Lipid Ord30 C/HDL 2.9 Ratio 11/29/2017 %Hba1C Eee428 % HbA1c 20539- 6 6.5 % 11/29/2017 %Hba1C Ldv813 Gluc Ave 140 mg/dL 11/29/2017 Comp Metabolic Arg952 NA 140 mEq/L 11/29/2017 Comp Metabolic Lsv771 K 3.6 mEq/L 11/29/2017 Comp Metabolic Riz216 CL 106 mEq/L 11/29/2017 Comp Metabolic Qes746 CO2 24.0 mEq/L 11/29/2017 Comp Metabolic Fml049 ANION GAP 14 11/29/2017 Comp Metabolic Uio163 GLUCOSE 151 mg/dL 11/29/2017 Comp Metabolic Ldq977 Creat 1.2 mg/dL 11/29/2017 Comp Metabolic Lsm143 eGFR 61 ml/min/1.73m2 11/29/2017 Comp Metabolic Ymi873 BUN 34 mg/dL 11/29/2017 Comp Metabolic Oxm914 B/C Ratio 28.3 Ratio 11/29/2017 Comp Metabolic Lph251 CALCIUM 8.9 mg/dL 11/29/2017 Comp Metabolic Aiw417 ALK PHOS 69 U/L 11/29/2017 Comp Metabolic Ovo519 AST(SGOT) 13 U/L 11/29/2017 Comp Metabolic Nrw891 ALT(SGPT) 16 U/L 11/29/2017 Comp Metabolic Sit616 BILI T 0.7 mg/dL 11/29/2017 Comp Metabolic Ell187 ALBUMIN 3.5 g/dL 11/29/2017 Comp Metabolic Uez393 TPRO 5.7 g/dL 11/29/2017 Comp Metabolic Zcn626 GLOB 2.2 g/dL 11/29/2017 Comp Metabolic Dmu353 A/G Ratio 1.6 Ratio 11/29/2017 Comp Metabolic Pjy607 Osmo 290 mOsmo 11/29/2017 Review of Systems System Result Effective Dates Constitutional No recent illness 11/28/2017 Constitutional No [...] No Procedures data Vital Signs Date Vital 11/28/2017 Blood Pressure 1: 118/70 Code: 8480-6 Heart Rate 1: 75 bpm Height: 5'7" SpO2: 97% Weight: 08/29/2017 Blood Pressure 1: 128/68 Code: 8480-6 Heart Rate 1: 72 bpm Height: 5'7" SpO2: 98% Weight: 07/23/2017 Blood Pressure 1: 138/76 Code: 8480-6 BMI: 33.2 Code: 35713-0 Heart Rate 1: 83 bpm Height: 5'7" SpO2: 98% Weight: 212 lbs Functional Status No Functional Status data History of Present Illness Symptom Name Status Result Effective Date Notes diabetes mellitus Quality non-insulin dependent 11/28/2017 None [...] data Encounters Encounter Performer Location Codes Date ([id number]) 90720 EST. PATIENT, LEVEL IV Diagnosis: Essential (primary) hypertension[ICD10: I10] Diagnosis: Type 2 diabetes mellitus with hyperglycemia[ICD10: E11.65] Diagnosis: Chronic kidney disease, stage 3 (moderate)[ICD10: N18.3] Diagnosis: Cervicalgia[ICD10: M54.2] Geneva Spaulding MD, [facility] CPT-4: 95029 11/28/2017 ([id number]) 02504 EST. PATIENT, LEVEL III Diagnosis: Essential (primary) hypertension[ICD10: I10] Diagnosis: Type 2 diabetes mellitus with hyperglycemia[ICD10: E11.65] Diagnosis: Foot drop, left foot[ICD10: M21.372] Geneva Spaulding MD, [facility] CPT-4: 35183 08/29/2017 OFFICE VISIT, NEW - LEVEL 4 Diagnosis: Essential (primary) hypertension[ICD10: I10] Diagnosis: Type 2 diabetes mellitus with hyperglycemia[ICD10: E11.65] Diagnosis: Chronic kidney disease, stage 3 (moderate)[ICD10: N18.3] Diagnosis: Muscle weakness (generalized)[ICD10: M62.81] [facility] CPT-4: 64579 07/23/2017 Plan of Care Planned Activity Notes Codes Status Date Visit Plan: Hypertension - well controlled - [...] disease-check labs 11/28/2017 Appointment: Geneva Case WPtel: [facility] [place] [phone] (15 min) Moderate 11/28/2017 Patient Education: Patient [...] safer ambulation. 08/29/2017 Appointment: Geneva Case WPtel: [address] [place], [place] [phone] (15 min) Moderate 08/29/2017 Patient Education: Patient [...] are starting to become less controlled. Generalized gzsibokp-gtmwdbhev-yffupfwh PT- plan to move back to [place] when able 07/23/2017 Appointment: Geneva Case WPtel: [address] [place], [place] [phone] New Patient 07/23/2017 Patient Education: Patient Medication [...] are starting to become less controlled. Generalized wrnlmmhq-xkiflynqi-snmpnjbx PT-plan to move back to [place] when able . Hypertension - well controlled - continue [...]
--- OUTSIDE RECORDS SUMMARY | 2018-08-21 10:40 | XMS REPORT | CCD ---
Author Author Geneva Case MD, [facility] Address [address] [place] [address] Phone Care Team Providers Care Vamp Throater Name Role Phone PP Unavailable CCM Unavailable Summary Purpose Interface Exchange Insurance Providers Payer name Policy type / Coverage type Covered alliance party ID Effective Begin Date Effective End Date WPS Medicare Part B Medicare Part B [id number] Unknown [employer] Medicare Part B [id number] Unknown Family history Mother Diagnosis Age At Onset No Known Diseases N/A Father Diagnosis Age At Onset No Known Diseases N/A Social History Social History Element Codes Description Effective Dates Living arrangements Unknown Assisted Living [place] 11/28/2017 Marital status Unknown 07/23/2017 Employment Unknown [...] Start Date Stop Date Status Fill Instructions Plavix 75 mg tablet RxNorm: 190266 1 Tablet(s) PO QHS 02/12/2018 06/11/2018 Active tamsulosin 0.4 mg capsule RxNorm: 137707 1 Capsule(s) PO daily 02/12/2018 06/11/2018 Active Tylenol 325 mg tablet RxNorm: 918005 1 Tablet(s) PO QHS and every 6 hours prn 02/03/2018 06/02/2018 Active loperamide 2 mg tablet RxNorm: 996922 2 after 1st stool & 1 after each add/max 4 in 24 hours Tablet(s) PO 02/03/2018 06/02/2018 Active Tylenol 325 mg tablet RxNorm: 789222 1 Tablet(s) PO QHS and every 6 hours prn 02/03/2018 02/02/2018 Inactive loperamide 2 mg tablet RxNorm: 550812 2 after 1st stool & 1 after each add/max 4 in 24 hours Tablet(s) PO 02/03/2018 02/02/2018 Inactive Vitamin B-12 1,000 mcg tablet RxNorm: 233605 TAKE 1 TABLET BY MOUTH ONCE DAILY 01/27/2018 12/22/2018 Active 01/27/2018 10:10:15 AM glimepiride 2 mg tablet RxNorm: 374708 TAKE 1 TABLET BY MOUTH ONCE DAILY 01/27/2018 07/25/2018 Active Generic For:AMARYL 2MG 01/27/2018 10:09:58 AM Januvia 100 mg tablet RxNorm: 159786 TAKE 1 TABLET BY MOUTH ONCE DAILY 01/20/2018 06/18/2018 Active 01/20/2018 9:58:08 AM Alcohol Pads RxNorm: 908789 1 TOP 01/07/2018 No Stop Date Active amlodipine 5 mg tablet RxNorm: 240784 TAKE ONE TABLET BY MOUTH DAILY 01/06/2018 07/04/2018 Active Generic For:NORVASC 5MG 01/06/2018 10:33:58 AM N O T I C E Last quantity doesn't match original quantity gabapentin 100 mg capsule RxNorm: 996593 TAKE 1 CAPSULE BY MOUTH THREE TIMES DAILY 01/06/2018 06/04/2018 Active Generic For:NEURONTIN 100MG 01/06/2018 10:33:55 AM N O T I C E Last quantity doesn't match original quantity Protonix 40 mg tablet,delayed release RxNorm: 987427 TAKE 1 TABLET BY MOUTH EVERY MORNING 12/16/2017 04/14/2018 Active Generic For:PROTONIX 40MG Proscar 5 mg tablet RxNorm: 730200 TAKE 1 TABLET BY MOUTH ONCE DAILY 11/04/2017 05/02/2018 Active Generic For:PROSCAR 5MG 11/04/2017 9:47:27 AM Aspirin Low Dose 81 mg tablet,delayed release RxNorm: 574935 1 Tablet(s) PO QHS 10/21/2017 10/15/2018 Active amlodipine 5 mg tablet RxNorm: 534978 TAKE ONE TABLET BY MOUTH DAILY 10/07/2017 01/04/2018 Inactive Generic For:NORVASC 5MG 10/07/2017 9:55:37 AM gabapentin 100 mg capsule RxNorm: 351043 TAKE 1 CAPSULE BY MOUTH THREE TIMES DAILY 10/07/2017 01/04/2018 Inactive Generic For:NEURONTIN 100MG 10/07/2017 9:55:26 AM Januvia 100 mg tablet RxNorm: 072906 TAKE 1 TABLET BY MOUTH ONCE DAILY 09/23/2017 01/19/2018 Inactive 09/23/2017 9:25:24 AM pravastatin 40 mg tablet RxNorm: 354803 TAKE ONE TABLET BY MOUTH EVERY NIGHT AT BEDTIME 09/19/2017 03/17/2018 Active Generic For:PRAVACHOL 40MG 09/19/2017 9:12:02 AM Protonix 40 mg tablet,delayed release RxNorm: 536631 TAKE 1 TABLET BY MOUTH EVERY MORNING 09/16/2017 12/15/2017 Inactive Generic For:PROTONIX 40MG 09/16/2017 9:50:22 AM amlodipine 5 mg tablet RxNorm: 140912 TAKE ONE TABLET BY MOUTH DAILY 09/09/2017 10/06/2017 Inactive Generic For:NORVASC 5MG 09/09/2017 9:16:37 AM gabapentin 100 mg capsule RxNorm: 777397 TAKE 1 CAPSULE BY MOUTH THREE TIMES DAILY 09/09/2017 10/06/2017 Inactive Generic For:NEURONTIN 100MG 09/09/2017 9:16:33 AM Vitamin D3 1,000 unit tablet RxNorm: 151632 1 Tablet(s) PO daily 09/04/2017 07/30/2018 Active Vitamin D3 1,000 unit tablet RxNorm: 531940 1 Tablet(s) PO daily 09/03/2017 09/03/2017 Inactive glimepiride 2 mg tablet RxNorm: 952516 TAKE 1 TABLET BY MOUTH ONCE DAILY 09/02/2017 01/26/2018 Inactive Generic For:AMARYL 2MG 09/02/2017 9:35:29 AM Vitamin B-12 1,000 mcg tablet RxNorm: 814886 TAKE 1 TABLET BY MOUTH ONCE DAILY 09/02/2017 01/26/2018 Inactive 09/02/2017 9:35:38 AM pravastatin 40 mg tablet RxNorm: 497782 1 Tablet(s) PO QHS 08/22/2017 08/21/2017 Inactive pravastatin 40 mg tablet RxNorm: 803625 1 Tablet(s) PO QHS 08/22/2017 09/18/2017 Inactive glimepiride 2 mg tablet RxNorm: 203446 1 Tablet(s) PO daily 07/24/2017 09/01/2017 Inactive hydrocodone 5 mg-acetaminophen 325 mg tablet RxNorm: 625733 1-2 Tablet(s) PO Q4H as needed for pain 07/23/2017 08/28/2017 Inactive allopurinol 100 mg tablet RxNorm: 636157 1 Tablet(s) PO BID No Start Date Active Proscar 5 mg tablet RxNorm: 113251 1 Tablet(s) PO daily No Start Date 11/03/2017 Inactive Metamucil oral packet RxNorm: 1 packet PO daily No Start Date 07/23/2017 Inactive Vitamin B-12 1,000 mcg tablet RxNorm: 383209 1 Tablet(s) PO daily No Start Date 09/01/2017 Inactive tamsulosin 0.4 mg capsule RxNorm: 362699 1 Capsule(s) PO daily No Start Date 02/11/2018 Inactive Plavix 75 mg tablet RxNorm: 748260 1 Tablet(s) PO QHS No Start Date 02/11/2018 Inactive Alcohol Pads RxNorm: 780332 1 TOP UD No Start Date 01/06/2018 Inactive Vitamin D3 1,000 unit tablet RxNorm: 099014 1 Tablet(s) PO daily No Start Date 09/02/2017 Inactive gabapentin 100 mg capsule RxNorm: 138923 1 Capsule(s) PO TID No Start Date 09/08/2017 Inactive olanzapine 5 mg tablet RxNorm: 649727 1 Tablet(s) PO QHS No Start Date 07/22/2017 Inactive Lipitor 40 mg tablet RxNorm: 273400 1 Tablet(s) PO QHS No Start Date 08/21/2017 Inactive Januvia 100 mg tablet RxNorm: 488980 1 Tablet(s) PO QHS No Start Date 09/22/2017 Inactive folic acid 1 mg tablet RxNorm: 867561 1 Tablet(s) PO daily No Start Date 07/23/2017 Inactive hydrocodone 5 mg-acetaminophen 325 mg tablet RxNorm: 282383 1 Tablet(s) PO Q4H as needed for pain No Start Date 07/22/2017 Inactive Protonix 40 mg tablet,delayed release RxNorm: 386884 1 Tablet(s) PO daily No Start Date 09/15/2017 Inactive amlodipine 5 mg tablet RxNorm: 820142 1 Tablet(s) PO daily No Start Date 09/08/2017 Inactive Aspirin Low Dose 81 mg tablet,delayed release RxNorm: 235954 1 Tablet(s) PO QHS No Start Date [...] 30.6 pg 11/29/2017 Cbc With Differential Ord2 [place]% 8.0 % 11/29/2017 Cbc With Differential Ord2 [...] 1.46 K/ul 11/29/2017 Cbc With Differential Ord2 Dare ABS# 0.6 K/ul 11/29/2017 Cbc With Differential Ord2 Eos ABS# 0.2 K/ul 11/29/2017 Cbc With Differential Ord2 Baso ABS# 0.0 K/ul 11/29/2017 Lipid Ord30 CHOL 115 mg/dL 11/29/2017 Lipid Ord30 HDL 40.0 mg/dl 11/29/2017 Lipid Ord30 TRIG 114 mg/dL 11/29/2017 Lipid Ord30 LDL 52 mg/dL 11/29/2017 Lipid Ord30 C/HDL 2.9 Ratio 11/29/2017 %Hba1C Xvx115 % HbA1c 97120- 6 6.5 % 11/29/2017 %Hba1C Lsa577 Gluc Ave 140 mg/dL 11/29/2017 Comp Metabolic Osx394 NA 140 mEq/L 11/29/2017 Comp Metabolic Tpn334 K 3.6 mEq/L 11/29/2017 Comp Metabolic Lkm152 CL 106 mEq/L 11/29/2017 Comp Metabolic Ngq010 CO2 24.0 mEq/L 11/29/2017 Comp Metabolic Hkb489 ANION GAP 14 11/29/2017 Comp Metabolic Cei556 GLUCOSE 151 mg/dL 11/29/2017 Comp Metabolic Uxb322 Creat 1.2 mg/dL 11/29/2017 Comp Metabolic Aqz014 eGFR 61 ml/min/1.73m2 11/29/2017 Comp Metabolic Iyp716 BUN 34 mg/dL 11/29/2017 Comp Metabolic Zta680 B/C Ratio 28.3 Ratio 11/29/2017 Comp Metabolic Zvo032 CALCIUM 8.9 mg/dL 11/29/2017 Comp Metabolic Krh906 ALK PHOS 69 U/L 11/29/2017 Comp Metabolic Iib062 AST(SGOT) 13 U/L 11/29/2017 Comp Metabolic Kxb223 ALT(SGPT) 16 U/L 11/29/2017 Comp Metabolic Zui297 BILI T 0.7 mg/dL 11/29/2017 Comp Metabolic Qla456 ALBUMIN 3.5 g/dL 11/29/2017 Comp Metabolic Gjn496 TPRO 5.7 g/dL 11/29/2017 Comp Metabolic Iom280 GLOB 2.2 g/dL 11/29/2017 Comp Metabolic Cpd454 A/G Ratio 1.6 Ratio 11/29/2017 Comp Metabolic Ltj357 Osmo 290 mOsmo 11/29/2017 Review of Systems [...] 1: 138/76 Code: 8480-6 BMI: 33.2 Code: 42014-8 Heart Rate 1: 83 bpm Height: 5'7" [...] data Encounters Encounter Performer Location Codes Date ([id number]) 26910 EST. PATIENT, LEVEL IV Diagnosis: Essential (primary) hypertension[ICD10: I10] Diagnosis: Type 2 diabetes mellitus with hyperglycemia[ICD10: E11.65] Diagnosis: Chronic kidney disease, stage 3 (moderate)[ICD10: N18.3] Diagnosis: Cervicalgia[ICD10: M54.2] [facility] CPT-4: 40635 11/28/2017 ([id number]) 09510 EST. PATIENT, LEVEL III Diagnosis: Essential (primary) hypertension[ICD10: I10] Diagnosis: Type 2 diabetes mellitus with hyperglycemia[ICD10: E11.65] Diagnosis: Foot drop, left foot[ICD10: M21.372] [facility] CPT-4: 68713 08/29/2017 OFFICE VISIT, NEW - LEVEL 4 Diagnosis: Essential (primary) hypertension[ICD10: I10] Diagnosis: Type 2 diabetes mellitus with hyperglycemia[ICD10: E11.65] Diagnosis: Chronic kidney disease, stage 3 (moderate)[ICD10: N18.3] Diagnosis: Muscle weakness (generalized)[ICD10: M62.81] [facility] CPT-4: 28229 07/23/2017 Plan of Care Planned Activity Notes [...] disease-check labs 11/28/2017 Appointment: Geneva Case WPtel: [address] [place], [place] [phone] (15 min) Moderate 11/28/2017 Patient Education: Patient [...] safer ambulation. 08/29/2017 Appointment: Geneva Case WPtel: [facility] [place] [phone] (15 min) Moderate 08/29/2017 Patient Education: Patient [...] are starting to become less controlled. Generalized cpjlqfhh-edwdpyygh-jwkxdlto PT- plan to move back to [place] when able 07/23/2017 Appointment: Geneva Case WPtel: [phone] New Patient 07/23/2017 Patient Education: Patient Medication [...] are starting to become less controlled. Generalized mucpjxej-hehzdkxfr-ngrsxzva PT-plan to move back to [place] when able . Hypertension - well controlled [...]
--- OUTSIDE RECORDS SUMMARY | 2018-08-21 10:41 | XMS REPORT | CCD ---
Author Author Geneva Case MD, 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 [employer] Medicare Part B [id number] Unknown Family history Mother Diagnosis Age At Onset No Known Diseases N/A Father Diagnosis Age At Onset No Known Diseases N/A Social History Social History Element Codes Description Effective Dates Living arrangements Unknown Assisted Living [place] 11/28/2017 Marital status Unknown 07/23/2017 Employment Unknown [...] Fill Instructions Tylenol 325 mg tablet RxNorm: 092925 1 Tablet(s) PO QHS and every 6 hours prn 02/03/2018 06/02/2018 Active loperamide 2 mg tablet RxNorm: 381109 2 after 1st stool & 1 after each add/max 4 in 24 hours Tablet(s) PO 02/03/2018 06/02/2018 Active Tylenol 325 mg tablet RxNorm: 193508 1 Tablet(s) PO QHS and every 6 hours prn 02/03/2018 02/02/2018 Inactive loperamide 2 mg tablet RxNorm: 806792 2 after 1st stool & 1 after each add/max 4 in 24 hours Tablet(s) PO 02/03/2018 02/02/2018 Inactive Vitamin B-12 1,000 mcg tablet RxNorm: 809630 TAKE 1 TABLET BY MOUTH ONCE DAILY 01/27/2018 12/22/2018 Active 01/27/2018 10:10:15 AM glimepiride 2 mg tablet RxNorm: 988754 TAKE 1 TABLET BY MOUTH ONCE DAILY 01/27/2018 07/25/2018 Active Generic For:AMARYL 2MG 01/27/2018 10:09:58 AM Januvia 100 mg tablet RxNorm: 167205 TAKE 1 TABLET BY MOUTH ONCE DAILY 01/20/2018 06/18/2018 Active 01/20/2018 9:58:08 AM Alcohol Pads RxNorm: 915843 1 TOP UD 01/07/2018 No Stop Date Active amlodipine 5 mg tablet RxNorm: 273259 TAKE ONE TABLET BY MOUTH DAILY 01/06/2018 07/04/2018 Active Generic For:NORVASC 5MG 01/06/2018 10:33:58 AM N O T I C E Last quantity doesn't match original quantity gabapentin 100 mg capsule RxNorm: 728696 TAKE 1 CAPSULE BY MOUTH THREE TIMES DAILY 01/06/2018 06/04/2018 Active Generic For:NEURONTIN 100MG 01/06/2018 10:33:55 AM N O T I C E Last quantity doesn't match original quantity Protonix 40 mg tablet,delayed release RxNorm: 512613 TAKE 1 TABLET BY MOUTH EVERY MORNING 12/16/2017 04/14/2018 Active Generic For:PROTONIX 40MG Proscar 5 mg tablet RxNorm: 279344 TAKE 1 TABLET BY MOUTH ONCE DAILY 11/04/2017 05/02/2018 Active Generic For:PROSCAR 5MG 11/04/2017 9:47:27 AM Aspirin Low Dose 81 mg tablet,delayed release RxNorm: 226544 1 Tablet(s) PO QHS 10/21/2017 10/15/2018 Active amlodipine 5 mg tablet RxNorm: 569531 TAKE ONE TABLET BY MOUTH DAILY 10/07/2017 01/04/2018 Inactive Generic For:NORVASC 5MG 10/07/2017 9:55:37 AM gabapentin 100 mg capsule RxNorm: 876188 TAKE 1 CAPSULE BY MOUTH THREE TIMES DAILY 10/07/2017 01/04/2018 Inactive Generic For:NEURONTIN 100MG 10/07/2017 9:55:26 AM Januvia 100 mg tablet RxNorm: 874084 TAKE 1 TABLET BY MOUTH ONCE DAILY 09/23/2017 01/19/2018 Inactive 09/23/2017 9:25:24 AM pravastatin 40 mg tablet RxNorm: 837209 TAKE ONE TABLET BY MOUTH EVERY NIGHT AT BEDTIME 09/19/2017 03/17/2018 Active Generic For:PRAVACHOL 40MG 09/19/2017 9:12:02 AM Protonix 40 mg tablet,delayed release RxNorm: 754556 TAKE 1 TABLET BY MOUTH EVERY MORNING 09/16/2017 12/15/2017 Inactive Generic For:PROTONIX 40MG 09/16/2017 9:50:22 AM amlodipine 5 mg tablet RxNorm: 579246 TAKE ONE TABLET BY MOUTH DAILY 09/09/2017 10/06/2017 Inactive Generic For:NORVASC 5MG 09/09/2017 9:16:37 AM gabapentin 100 mg capsule RxNorm: 867682 TAKE 1 CAPSULE BY MOUTH THREE TIMES DAILY 09/09/2017 10/06/2017 Inactive Generic For:NEURONTIN 100MG 09/09/2017 9:16:33 AM Vitamin D3 1,000 unit tablet RxNorm: 055585 1 Tablet(s) PO daily 09/04/2017 07/30/2018 Active Vitamin D3 1,000 unit tablet RxNorm: 210753 1 Tablet(s) PO daily 09/03/2017 09/03/2017 Inactive glimepiride 2 mg tablet RxNorm: 710346 TAKE 1 TABLET BY MOUTH ONCE DAILY 09/02/2017 01/26/2018 Inactive Generic For:AMARYL 2MG 09/02/2017 9:35:29 AM Vitamin B-12 1,000 mcg tablet RxNorm: 849394 TAKE 1 TABLET BY MOUTH ONCE DAILY 09/02/2017 01/26/2018 Inactive 09/02/2017 9:35:38 AM pravastatin 40 mg tablet RxNorm: 614451 1 Tablet(s) PO QHS 08/22/2017 08/21/2017 Inactive pravastatin 40 mg tablet RxNorm: 592798 1 Tablet(s) PO QHS 08/22/2017 09/18/2017 Inactive glimepiride 2 mg tablet RxNorm: 973025 1 Tablet(s) PO daily 07/24/2017 09/01/2017 Inactive hydrocodone 5 mg-acetaminophen 325 mg tablet RxNorm: 954512 1-2 Tablet(s) PO Q4H as needed for pain 07/23/2017 08/28/2017 Inactive tamsulosin 0.4 mg capsule RxNorm: 198895 1 Capsule(s) PO daily No Start Date Active Plavix 75 mg tablet RxNorm: 536367 1 Tablet(s) PO QHS No Start Date Active allopurinol 100 mg tablet RxNorm: 523844 1 Tablet(s) PO BID No Start Date Active Proscar 5 mg tablet RxNorm: 018196 1 Tablet(s) PO daily No Start Date 11/03/2017 Inactive Metamucil oral packet RxNorm: 1 packet PO daily No Start Date 07/23/2017 Inactive Vitamin B-12 1,000 mcg tablet RxNorm: 350260 1 Tablet(s) PO daily No Start Date 09/01/2017 Inactive Alcohol Pads RxNorm: 724487 1 TOP UD No Start Date 01/06/2018 Inactive Vitamin D3 1,000 unit tablet RxNorm: 251406 1 Tablet(s) PO daily No Start Date 09/02/2017 Inactive gabapentin 100 mg capsule RxNorm: 537898 1 Capsule(s) PO TID No Start Date 09/08/2017 Inactive olanzapine 5 mg tablet RxNorm: 101293 1 Tablet(s) PO QHS No Start Date 07/22/2017 Inactive Lipitor 40 mg tablet RxNorm: 376499 1 Tablet(s) PO QHS No Start Date 08/21/2017 Inactive Januvia 100 mg tablet RxNorm: 186617 1 Tablet(s) PO QHS No Start Date 09/22/2017 Inactive folic acid 1 mg tablet RxNorm: 476711 1 Tablet(s) PO daily No Start Date 07/23/2017 Inactive hydrocodone 5 mg-acetaminophen 325 mg tablet RxNorm: 786911 1 Tablet(s) PO Q4H as needed for pain No Start Date 07/22/2017 Inactive Protonix 40 mg tablet,delayed release RxNorm: 632246 1 Tablet(s) PO daily No Start Date 09/15/2017 Inactive amlodipine 5 mg tablet RxNorm: 415949 1 Tablet(s) PO daily No Start Date 09/08/2017 Inactive Aspirin Low Dose 81 mg tablet,delayed release RxNorm: 732770 1 Tablet(s) PO QHS No Start Date [...] 30.6 pg 11/29/2017 Cbc With Differential Ord2 Darke% 8.0 % 11/29/2017 Cbc With Differential Ord2 [...] 1.46 K/ul 11/29/2017 Cbc With Differential Ord2 [place]ke ABS# 0.6 K/ul 11/29/2017 Cbc With Differential Ord2 Eos ABS# 0.2 K/ul 11/29/2017 Cbc With Differential Ord2 Baso ABS# 0.0 K/ul 11/29/2017 Lipid Ord30 CHOL 115 mg/dL 11/29/2017 Lipid Ord30 HDL 40.0 mg/dl 11/29/2017 Lipid Ord30 TRIG 114 mg/dL 11/29/2017 Lipid Ord30 LDL 52 mg/dL 11/29/2017 Lipid Ord30 C/HDL 2.9 Ratio 11/29/2017 %Hba1C Tfk407 % HbA1c 81529- 6 6.5 % 11/29/2017 %Hba1C Mcw364 Gluc Ave 140 mg/dL 11/29/2017 Comp Metabolic Ggv851 NA 140 mEq/L 11/29/2017 Comp Metabolic Soi321 K 3.6 mEq/L 11/29/2017 Comp Metabolic Twc760 CL 106 mEq/L 11/29/2017 Comp Metabolic Skn812 CO2 24.0 mEq/L 11/29/2017 Comp Metabolic Sis268 ANION GAP 14 11/29/2017 Comp Metabolic Bmx047 GLUCOSE 151 mg/dL 11/29/2017 Comp Metabolic Flw096 Creat 1.2 mg/dL 11/29/2017 Comp Metabolic Ugv238 eGFR 61 ml/min/1.73m2 11/29/2017 Comp Metabolic Lyv442 BUN 34 mg/dL 11/29/2017 Comp Metabolic Edj281 B/C Ratio 28.3 Ratio 11/29/2017 Comp Metabolic Kdl750 CALCIUM 8.9 mg/dL 11/29/2017 Comp Metabolic Eim290 ALK PHOS 69 U/L 11/29/2017 Comp Metabolic Wzt457 AST(SGOT) 13 U/L 11/29/2017 Comp Metabolic Sco919 ALT(SGPT) 16 U/L 11/29/2017 Comp Metabolic Pbu835 BILI T 0.7 mg/dL 11/29/2017 Comp Metabolic Eof043 ALBUMIN 3.5 g/dL 11/29/2017 Comp Metabolic Vcx708 TPRO 5.7 g/dL 11/29/2017 Comp Metabolic Izk793 GLOB 2.2 g/dL 11/29/2017 Comp Metabolic Iie654 A/G Ratio 1.6 Ratio 11/29/2017 Comp Metabolic Ykm196 Osmo 290 mOsmo 11/29/2017 Review of Systems [...] 1: 138/76 Code: 8480-6 BMI: 33.2 Code: 02053-2 Heart Rate 1: 83 bpm Height: 5'7" [...] data Encounters Encounter Performer Location Codes Date ([id number]) [id number] EST. PATIENT, LEVEL IV Diagnosis: Essential (primary) hypertension[ICD10: I10] Diagnosis: Type 2 diabetes mellitus with hyperglycemia[ICD10: E11.65] Diagnosis: Chronic kidney disease, stage 3 (moderate)[ICD10: N18.3] Diagnosis: Cervicalgia[ICD10: M54.2] Geneva Spaulding MD, [facility] CPT-4: 34840 11/28/2017 ([id number]) 45190 EST. PATIENT, LEVEL III Diagnosis: Essential (primary) hypertension[ICD10: I10] Diagnosis: Type 2 diabetes mellitus with hyperglycemia[ICD10: E11.65] Diagnosis: Foot drop, left foot[ICD10: M21.372] [facility] CPT-4: 83636 08/29/2017 OFFICE VISIT, NEW - LEVEL 4 Diagnosis: Essential (primary) hypertension[ICD10: I10] Diagnosis: Type 2 diabetes mellitus with hyperglycemia[ICD10: E11.65] Diagnosis: Chronic kidney disease, stage 3 (moderate)[ICD10: N18.3] Diagnosis: Muscle weakness (generalized)[ICD10: M62.81] [facility] CPT-4: 36771 07/23/2017 Plan of Care Planned Activity Notes [...] disease-check labs 11/28/2017 Appointment: Geneva Case WPtel: [phone] (15 min) Moderate 11/28/2017 Patient [...] safer ambulation. 08/29/2017 Appointment: Geneva Case WPtel: [address] [place] [address] (15 min) Moderate 08/29/2017 Patient Education: Patient [...] are starting to become less controlled. Generalized jnpkvzgz-btnkonsai-fkdxoagw PT- plan to move back to [place] when able 07/23/2017 Appointment: Geneva Case WPtel: [phone] New Patient 07/23/2017 Patient Education: [...] are starting to become less controlled. Generalized izxtsyxd-pzrxgxwpv-riosozkz PT-plan to move back to [place] when able . Hypertension - well controlled [...]
--- OUTSIDE RECORDS SUMMARY | 2018-08-21 10:42 | XMS REPORT | CCD ---
Author Author Geneva Case MD, [facility] Address [address] [place] [address] Phone Care Team Providers Care Leadite Man Name Role Phone PP Unavailable CCM Unavailable Summary Purpose Interface Exchange Insurance Providers Payer name Policy type / Coverage type Covered republican ID Effective Begin Date Effective End Date WPS Medicare Part B Medicare Part B [id number] Unknown [email or web address] Medicare Part B [id number] Unknown Family history Mother Diagnosis Age At Onset No Known Diseases N/A Father Diagnosis Age At Onset No Known Diseases N/A Social History Social History Element Codes Description Effective Dates Living arrangements Unknown Assisted Living [place] 11/28/2017 Marital status Unknown 07/23/2017 Employment Unknown [...] Fill Instructions loperamide 2 mg tablet RxNorm: 929468 2 after 1st stool & 1 after each add/max 4 in 24 hours Tablet(s) PO 02/03/2018 06/02/2018 Active loperamide 2 mg tablet RxNorm: 150295 2 after 1st stool & 1 after each add/max 4 in 24 hours Tablet(s) PO 02/03/2018 02/02/2018 Inactive Vitamin B-12 1,000 mcg tablet RxNorm: 847766 TAKE 1 TABLET BY MOUTH ONCE DAILY 01/27/2018 12/22/2018 Active 01/27/2018 10:10:15 AM glimepiride 2 mg tablet RxNorm: 013873 TAKE 1 TABLET BY MOUTH ONCE DAILY 01/27/2018 07/25/2018 Active Generic For:AMARYL 2MG 01/27/2018 10:09:58 AM Januvia 100 mg tablet RxNorm: 296124 TAKE 1 TABLET BY MOUTH ONCE DAILY 01/20/2018 06/18/2018 Active 01/20/2018 9:58:08 AM Alcohol Pads RxNorm: 007153 1 [facility] 01/07/2018 No Stop Date Active amlodipine 5 mg tablet RxNorm: 103182 TAKE ONE TABLET BY MOUTH DAILY 01/06/2018 07/04/2018 Active Generic For:NORVASC 5MG 01/06/2018 10:33:58 AM N O T I C E Last quantity doesn't match original quantity gabapentin 100 mg capsule RxNorm: 688696 TAKE 1 CAPSULE BY MOUTH THREE TIMES DAILY 01/06/2018 06/04/2018 Active Generic For:NEURONTIN 100MG 01/06/2018 10:33:55 AM N O T I C E Last quantity doesn't match original quantity Protonix 40 mg tablet,delayed release RxNorm: 979376 TAKE 1 TABLET BY MOUTH EVERY MORNING 12/16/2017 04/14/2018 Active Generic For:PROTONIX 40MG Proscar 5 mg tablet RxNorm: 650953 TAKE 1 TABLET BY MOUTH ONCE DAILY 11/04/2017 05/02/2018 Active Generic For:PROSCAR 5MG 11/04/2017 9:47:27 AM Aspirin Low Dose 81 mg tablet,delayed release RxNorm: 652530 1 Tablet(s) PO QHS 10/21/2017 10/15/2018 Active amlodipine 5 mg tablet RxNorm: 956071 TAKE ONE TABLET BY MOUTH DAILY 10/07/2017 01/04/2018 Inactive Generic For:NORVASC 5MG 10/07/2017 9:55:37 AM gabapentin 100 mg capsule RxNorm: 852885 TAKE 1 CAPSULE BY MOUTH THREE TIMES DAILY 10/07/2017 01/04/2018 Inactive Generic For:NEURONTIN 100MG 10/07/2017 9:55:26 AM Januvia 100 mg tablet RxNorm: 876849 TAKE 1 TABLET BY MOUTH ONCE DAILY 09/23/2017 01/19/2018 Inactive 09/23/2017 9:25:24 AM pravastatin 40 mg tablet RxNorm: 237627 TAKE ONE TABLET BY MOUTH EVERY NIGHT AT BEDTIME 09/19/2017 03/17/2018 Active Generic For:PRAVACHOL 40MG 09/19/2017 9:12:02 AM Protonix 40 mg tablet,delayed release RxNorm: 892817 TAKE 1 TABLET BY MOUTH EVERY MORNING 09/16/2017 12/15/2017 Inactive Generic For:PROTONIX 40MG 09/16/2017 9:50:22 AM amlodipine 5 mg tablet RxNorm: 702726 TAKE ONE TABLET BY MOUTH DAILY 09/09/2017 10/06/2017 Inactive Generic For:NORVASC 5MG 09/09/2017 9:16:37 AM gabapentin 100 mg capsule RxNorm: 612566 TAKE 1 CAPSULE BY MOUTH THREE TIMES DAILY 09/09/2017 10/06/2017 Inactive Generic For:NEURONTIN 100MG 09/09/2017 9:16:33 AM Vitamin D3 1,000 unit tablet RxNorm: 761241 1 Tablet(s) PO daily 09/04/2017 07/30/2018 Active Vitamin D3 1,000 unit tablet RxNorm: 106879 1 Tablet(s) PO daily 09/03/2017 09/03/2017 Inactive glimepiride 2 mg tablet RxNorm: 637878 TAKE 1 TABLET BY MOUTH ONCE DAILY 09/02/2017 01/26/2018 Inactive Generic For:AMARYL 2MG 09/02/2017 9:35:29 AM Vitamin B-12 1,000 mcg tablet RxNorm: 694459 TAKE 1 TABLET BY MOUTH ONCE DAILY 09/02/2017 01/26/2018 Inactive 09/02/2017 9:35:38 AM pravastatin 40 mg tablet RxNorm: 823184 1 Tablet(s) PO QHS 08/22/2017 08/21/2017 Inactive pravastatin 40 mg tablet RxNorm: 683890 1 Tablet(s) PO QHS 08/22/2017 09/18/2017 Inactive glimepiride 2 mg tablet RxNorm: 834827 1 Tablet(s) PO daily 07/24/2017 09/01/2017 Inactive hydrocodone 5 mg-acetaminophen 325 mg tablet RxNorm: 957402 1-2 Tablet(s) PO Q4H as needed for pain 07/23/2017 08/28/2017 Inactive tamsulosin 0.4 mg capsule RxNorm: 098173 1 Capsule(s) PO daily No Start Date Active Plavix 75 mg tablet RxNorm: 532422 1 Tablet(s) PO QHS No Start Date Active allopurinol 100 mg tablet RxNorm: 942908 1 Tablet(s) PO BID No Start Date Active Proscar 5 mg tablet RxNorm: 971984 1 Tablet(s) PO daily No Start Date 11/03/2017 Inactive Metamucil oral packet RxNorm: 1 packet PO daily No Start Date 07/23/2017 Inactive Vitamin B-12 1,000 mcg tablet RxNorm: 886600 1 Tablet(s) PO daily No Start Date 09/01/2017 Inactive Alcohol Pads RxNorm: 547194 1 TOP UD No Start Date 01/06/2018 Inactive Vitamin D3 1,000 unit tablet RxNorm: 162704 1 Tablet(s) PO daily No Start Date 09/02/2017 Inactive gabapentin 100 mg capsule RxNorm: 112251 1 Capsule(s) PO TID No Start Date 09/08/2017 Inactive olanzapine 5 mg tablet RxNorm: 822283 1 Tablet(s) PO QHS No Start Date 07/22/2017 Inactive Lipitor 40 mg tablet RxNorm: 731760 1 Tablet(s) PO QHS No Start Date 08/21/2017 Inactive Januvia 100 mg tablet RxNorm: 567910 1 Tablet(s) PO QHS No Start Date 09/22/2017 Inactive folic acid 1 mg tablet RxNorm: 092065 1 Tablet(s) PO daily No Start Date 07/23/2017 Inactive hydrocodone 5 mg-acetaminophen 325 mg tablet RxNorm: 937948 1 Tablet(s) PO Q4H as needed for pain No Start Date 07/22/2017 Inactive Protonix 40 mg tablet,delayed release RxNorm: 408341 1 Tablet(s) PO daily No Start Date 09/15/2017 Inactive amlodipine 5 mg tablet RxNorm: 769351 1 Tablet(s) PO daily No Start Date 09/08/2017 Inactive Aspirin Low Dose 81 mg tablet,delayed release RxNorm: 897040 1 Tablet(s) PO QHS No Start Date [...] 30.6 pg 11/29/2017 Cbc With Differential Ord2 Iron% 8.0 % 11/29/2017 Cbc With Differential Ord2 [...] 1.46 K/ul 11/29/2017 Cbc With Differential Ord2 Iron ABS# 0.6 K/ul 11/29/2017 Cbc With Differential Ord2 Eos ABS# 0.2 K/ul 11/29/2017 Cbc With Differential Ord2 Baso ABS# 0.0 K/ul 11/29/2017 Lipid Ord30 CHOL 115 mg/dL 11/29/2017 Lipid Ord30 HDL 40.0 mg/dl 11/29/2017 Lipid Ord30 TRIG 114 mg/dL 11/29/2017 Lipid Ord30 LDL 52 mg/dL 11/29/2017 Lipid Ord30 C/HDL 2.9 Ratio 11/29/2017 %Hba1C Hrw772 % HbA1c 60500- 6 6.5 % 11/29/2017 %Hba1C Ngq086 Gluc Ave 140 mg/dL 11/29/2017 Comp Metabolic Lcc575 NA 140 mEq/L 11/29/2017 Comp Metabolic Vru191 K 3.6 mEq/L 11/29/2017 Comp Metabolic Ngs418 CL 106 mEq/L 11/29/2017 Comp Metabolic Xhs834 CO2 24.0 mEq/L 11/29/2017 Comp Metabolic Huq075 ANION GAP 14 11/29/2017 Comp Metabolic Ksm442 GLUCOSE 151 mg/dL 11/29/2017 Comp Metabolic Owd723 Creat 1.2 mg/dL 11/29/2017 Comp Metabolic Vvk825 eGFR 61 ml/min/1.73m2 11/29/2017 Comp Metabolic Ovg614 BUN 34 mg/dL 11/29/2017 Comp Metabolic Mqh375 B/C Ratio 28.3 Ratio 11/29/2017 Comp Metabolic Qqv421 CALCIUM 8.9 mg/dL 11/29/2017 Comp Metabolic Nzd001 ALK PHOS 69 U/L 11/29/2017 Comp Metabolic Une112 AST(SGOT) 13 U/L 11/29/2017 Comp Metabolic Stx405 ALT(SGPT) 16 U/L 11/29/2017 Comp Metabolic Qbu756 BILI T 0.7 mg/dL 11/29/2017 Comp Metabolic Xha322 ALBUMIN 3.5 g/dL 11/29/2017 Comp Metabolic Xlw137 TPRO 5.7 g/dL 11/29/2017 Comp Metabolic Awg977 GLOB 2.2 g/dL 11/29/2017 Comp Metabolic Fup990 A/G Ratio 1.6 Ratio 11/29/2017 Comp Metabolic Zej041 Osmo 290 mOsmo 11/29/2017 Review of Systems [...] 1: 138/76 Code: 8480-6 BMI: 33.2 Code: 31059-5 Heart Rate 1: 83 bpm Height: 5'7" [...] data Encounters Encounter Performer Location Codes Date () [id number] EST. PATIENT, LEVEL IV Diagnosis: Essential (primary) hypertension[ICD10: I10] Diagnosis: Type 2 diabetes mellitus with hyperglycemia[ICD10: E11.65] Diagnosis: Chronic kidney disease, stage 3 (moderate)[ICD10: N18.3] Diagnosis: Cervicalgia[ICD10: M54.2] [facility] CPT-4: 91882 11/28/2017 ([id number]) 34140 EST. PATIENT, LEVEL III Diagnosis: Essential (primary) hypertension[ICD10: I10] Diagnosis: Type 2 diabetes mellitus with hyperglycemia[ICD10: E11.65] Diagnosis: Foot drop, left foot[ICD10: M21.372] [facility] CPT-4: 22204 08/29/2017 OFFICE VISIT, NEW - LEVEL 4 Diagnosis: Essential (primary) hypertension[ICD10: I10] Diagnosis: Type 2 diabetes mellitus with hyperglycemia[ICD10: E11.65] Diagnosis: Chronic kidney disease, stage 3 (moderate)[ICD10: N18.3] Diagnosis: Muscle weakness (generalized)[ICD10: M62.81] [facility] CPT-4: 95849 07/23/2017 Plan of Care Planned Activity Notes [...] labs 11/28/2017 Appointment: Geneva Case [facility]Ptel[phone] (15 min) Moderate 11/28/2017 Patient Education: Patient [...] safer ambulation. 08/29/2017 Appointment: Geneva Case WPtel: [address] [place] [address] (15 min) Moderate 08/29/2017 Patient Education: Patient [...] are starting to become less controlled. Generalized mmouvnbz-okolynjay-rrhhezef PT- plan to move back to [place] when able 07/23/2017 Appointment: Geneva Case WPtel: [address] [place], [place] [phone] [place] [address] New Patient 07/23/2017 Patient Education: Patient Medication [...] are starting to become less controlled. Generalized dtzybhia-pbuoadmwm-xmfhwygi PT-plan to move back to [place] when able . Hypertension - well [...]
--- OUTSIDE RECORDS SUMMARY | 2018-08-21 10:43 | XMS REPORT | CCD ---
Author Author Geneva Case MD, [facility] Address [address] [place] [address] Phone Care Team Providers Care Fur Cutter Name Role Phone PP Unavailable CCM Unavailable Summary Purpose Interface Exchange Insurance Providers Payer name Policy type / Coverage type Covered constitution party ID Effective Begin Date Effective End Date WPS Medicare Part B Medicare Part B [id number] Unknown [employer] Medicare Part B [id number] Unknown Family history Mother Diagnosis Age At Onset No Known Diseases N/A Father Diagnosis Age At Onset No Known Diseases N/A Social History Social History Element Codes Description Effective Dates Living arrangements Unknown Assisted Living [place] 11/28/2017 Marital status Unknown 07/23/2017 Employment Unknown [...] Date Stop Date Status Fill Instructions Vitamin B-12 1,000 mcg tablet RxNorm: 720352 TAKE 1 TABLET BY MOUTH ONCE DAILY 01/27/2018 12/22/2018 Active 01/27/2018 10:10:15 AM glimepiride 2 mg tablet RxNorm: 052622 TAKE 1 TABLET BY MOUTH ONCE DAILY 01/27/2018 07/25/2018 Active Generic For:AMARYL 2MG 01/27/2018 10:09:58 AM Januvia 100 mg tablet RxNorm: 121538 TAKE 1 TABLET BY MOUTH ONCE DAILY 01/20/2018 06/18/2018 Active 01/20/2018 9:58:08 AM Alcohol Pads RxNorm: 541581 1 TOP UD 01/07/2018 No Stop Date Active amlodipine 5 mg tablet RxNorm: 083865 TAKE ONE TABLET BY MOUTH DAILY 01/06/2018 07/04/2018 Active Generic For:NORVASC 5MG 01/06/2018 10:33:58 AM N O T I C E Last quantity doesn't match original quantity gabapentin 100 mg capsule RxNorm: 346097 TAKE 1 CAPSULE BY MOUTH THREE TIMES DAILY 01/06/2018 06/04/2018 Active Generic For:NEURONTIN 100MG 01/06/2018 10:33:55 AM N O T I C E Last quantity doesn't match original quantity Protonix 40 mg tablet,delayed release RxNorm: 953533 TAKE 1 TABLET BY MOUTH EVERY MORNING 12/16/2017 04/14/2018 Active Generic For:PROTONIX 40MG Proscar 5 mg tablet RxNorm: 856504 TAKE 1 TABLET BY MOUTH ONCE DAILY 11/04/2017 05/02/2018 Active Generic For:PROSCAR 5MG 11/04/2017 9:47:27 AM Aspirin Low Dose 81 mg tablet,delayed release RxNorm: 340028 1 Tablet(s) PO QHS 10/21/2017 10/15/2018 Active amlodipine 5 mg tablet RxNorm: 528419 TAKE ONE TABLET BY MOUTH DAILY 10/07/2017 01/04/2018 Inactive Generic For:NORVASC 5MG 10/07/2017 9:55:37 AM gabapentin 100 mg capsule RxNorm: 605613 TAKE 1 CAPSULE BY MOUTH THREE TIMES DAILY 10/07/2017 01/04/2018 Inactive Generic For:NEURONTIN 100MG 10/07/2017 9:55:26 AM Januvia 100 mg tablet RxNorm: 815063 TAKE 1 TABLET BY MOUTH ONCE DAILY 09/23/2017 01/19/2018 Inactive 09/23/2017 9:25:24 AM pravastatin 40 mg tablet RxNorm: 638566 TAKE ONE TABLET BY MOUTH EVERY NIGHT AT BEDTIME 09/19/2017 03/17/2018 Active Generic For:PRAVACHOL 40MG 09/19/2017 9:12:02 AM Protonix 40 mg tablet,delayed release RxNorm: 950287 TAKE 1 TABLET BY MOUTH EVERY MORNING 09/16/2017 12/15/2017 Inactive Generic For:PROTONIX 40MG 09/16/2017 9:50:22 AM amlodipine 5 mg tablet RxNorm: 462073 TAKE ONE TABLET BY MOUTH DAILY 09/09/2017 10/06/2017 Inactive Generic For:NORVASC 5MG 09/09/2017 9:16:37 AM gabapentin 100 mg capsule RxNorm: 798044 TAKE 1 CAPSULE BY MOUTH THREE TIMES DAILY 09/09/2017 10/06/2017 Inactive Generic For:NEURONTIN 100MG 09/09/2017 9:16:33 AM Vitamin D3 1,000 unit tablet RxNorm: 263429 1 Tablet(s) PO daily 09/04/2017 07/30/2018 Active Vitamin D3 1,000 unit tablet RxNorm: 866406 1 Tablet(s) PO daily 09/03/2017 09/03/2017 Inactive glimepiride 2 mg tablet RxNorm: 026880 TAKE 1 TABLET BY MOUTH ONCE DAILY 09/02/2017 01/26/2018 Inactive Generic For:AMARYL 2MG 09/02/2017 9:35:29 AM Vitamin B-12 1,000 mcg tablet RxNorm: 568549 TAKE 1 TABLET BY MOUTH ONCE DAILY 09/02/2017 01/26/2018 Inactive 09/02/2017 9:35:38 AM pravastatin 40 mg tablet RxNorm: 997980 1 Tablet(s) PO QHS 08/22/2017 08/21/2017 Inactive pravastatin 40 mg tablet RxNorm: 560543 1 Tablet(s) PO QHS 08/22/2017 09/18/2017 Inactive glimepiride 2 mg tablet RxNorm: 630371 1 Tablet(s) PO daily 07/24/2017 09/01/2017 Inactive hydrocodone 5 mg-acetaminophen 325 mg tablet RxNorm: 597546 1-2 Tablet(s) PO Q4H as needed for pain 07/23/2017 08/28/2017 Inactive tamsulosin 0.4 mg capsule RxNorm: 409991 1 Capsule(s) PO daily No Start Date Active Plavix 75 mg tablet RxNorm: 831002 1 Tablet(s) PO QHS No Start Date Active allopurinol 100 mg tablet RxNorm: 894977 1 Tablet(s) PO BID No Start Date Active Proscar 5 mg tablet RxNorm: 064585 1 Tablet(s) PO daily No Start Date 11/03/2017 Inactive Metamucil oral packet RxNorm: 1 packet PO daily No Start Date 07/23/2017 Inactive Vitamin B-12 1,000 mcg tablet RxNorm: 325237 1 Tablet(s) PO daily No Start Date 09/01/2017 Inactive Alcohol Pads RxNorm: 807744 1 TOP UD No Start Date 01/06/2018 Inactive Vitamin D3 1,000 unit tablet RxNorm: 486453 1 Tablet(s) PO daily No Start Date 09/02/2017 Inactive gabapentin 100 mg capsule RxNorm: 785321 1 Capsule(s) PO TID No Start Date 09/08/2017 Inactive olanzapine 5 mg tablet RxNorm: 629876 1 Tablet(s) PO QHS No Start Date 07/22/2017 Inactive Lipitor 40 mg tablet RxNorm: 611839 1 Tablet(s) PO QHS No Start Date 08/21/2017 Inactive Januvia 100 mg tablet RxNorm: 772212 1 Tablet(s) PO QHS No Start Date 09/22/2017 Inactive folic acid 1 mg tablet RxNorm: 093666 1 Tablet(s) PO daily No Start Date 07/23/2017 Inactive hydrocodone 5 mg-acetaminophen 325 mg tablet RxNorm: 563473 1 Tablet(s) PO Q4H as needed for pain No Start Date 07/22/2017 Inactive Protonix 40 mg tablet,delayed release RxNorm: 194896 1 Tablet(s) PO daily No Start Date 09/15/2017 Inactive amlodipine 5 mg tablet RxNorm: 279286 1 Tablet(s) PO daily No Start Date 09/08/2017 Inactive Aspirin Low Dose 81 mg tablet,delayed release RxNorm: 318653 1 Tablet(s) PO QHS No Start Date [...] 30.6 pg 11/29/2017 Cbc With Differential Ord2 [place]% 8.0 % 11/29/2017 Cbc With Differential Ord2 [...] 1.46 K/ul 11/29/2017 Cbc With Differential Ord2 [place] ABS# 0.6 K/ul 11/29/2017 Cbc With Differential Ord2 Eos ABS# 0.2 K/ul 11/29/2017 Cbc With Differential Ord2 Baso ABS# 0.0 K/ul 11/29/2017 Lipid Ord30 CHOL 115 mg/dL 11/29/2017 Lipid Ord30 HDL 40.0 mg/dl 11/29/2017 Lipid Ord30 TRIG 114 mg/dL 11/29/2017 Lipid Ord30 LDL 52 mg/dL 11/29/2017 Lipid Ord30 C/HDL 2.9 Ratio 11/29/2017 %Hba1C Usi105 % HbA1c 32932- 6 6.5 % 11/29/2017 %Hba1C Poa104 Gluc Ave 140 mg/dL 11/29/2017 Comp Metabolic Jai034 NA 140 mEq/L 11/29/2017 Comp Metabolic Agy573 K 3.6 mEq/L 11/29/2017 Comp Metabolic Ttb747 CL 106 mEq/L 11/29/2017 Comp Metabolic Tgc773 CO2 24.0 mEq/L 11/29/2017 Comp Metabolic Mav245 ANION GAP 14 11/29/2017 Comp Metabolic Kaq543 GLUCOSE 151 mg/dL 11/29/2017 Comp Metabolic Vjb127 Creat 1.2 mg/dL 11/29/2017 Comp Metabolic Wvn324 eGFR 61 ml/min/1.73m2 11/29/2017 Comp Metabolic Nbp143 BUN 34 mg/dL 11/29/2017 Comp Metabolic Jda140 B/C Ratio 28.3 Ratio 11/29/2017 Comp Metabolic Fld895 CALCIUM 8.9 mg/dL 11/29/2017 Comp Metabolic Yoj474 ALK PHOS 69 U/L 11/29/2017 Comp Metabolic Mkb376 AST(SGOT) 13 U/L 11/29/2017 Comp Metabolic Jxe186 ALT(SGPT) 16 U/L 11/29/2017 Comp Metabolic Cgc068 BILI T 0.7 mg/dL 11/29/2017 Comp Metabolic Def951 ALBUMIN 3.5 g/dL 11/29/2017 Comp Metabolic Psb506 TPRO 5.7 g/dL 11/29/2017 Comp Metabolic Zhs778 GLOB 2.2 g/dL 11/29/2017 Comp Metabolic Iqv767 A/G Ratio 1.6 Ratio 11/29/2017 Comp Metabolic Bhf632 Osmo 290 mOsmo 11/29/2017 Review of Systems [...] 1: 138/76 Code: 8480-6 BMI: 33.2 Code: 69509-0 Heart Rate 1: 83 bpm Height: 5'7" [...] data Encounters Encounter Performer Location Codes Date ([id number]) 60336 EST. PATIENT, LEVEL IV Diagnosis: Essential (primary) hypertension[ICD10: I10] Diagnosis: Type 2 diabetes mellitus with hyperglycemia[ICD10: E11.65] Diagnosis: Chronic kidney disease, stage 3 (moderate)[ICD10: N18.3] Diagnosis: Cervicalgia[ICD10: M54.2] Geneva Spaulding MD, [facility] CPT-4: 45415 11/28/2017 ([id number]) [id number] EST. PATIENT, LEVEL III Diagnosis: Essential (primary) hypertension[ICD10: I10] Diagnosis: Type 2 diabetes mellitus with hyperglycemia[ICD10: E11.65] Diagnosis: Foot drop, left foot[ICD10: M21.372] Geneva Spaulding MD, [facility] CPT-4: 74717 08/29/2017 OFFICE VISIT, NEW - LEVEL 4 Diagnosis: Essential (primary) hypertension[ICD10: I10] Diagnosis: Type 2 diabetes mellitus with hyperglycemia[ICD10: E11.65] Diagnosis: Chronic kidney disease, stage 3 (moderate)[ICD10: N18.3] Diagnosis: Muscle weakness (generalized)[ICD10: M62.81] Geneva Spaulding MD, [facility] CPT-4: 39195 07/23/2017 Plan of Care Planned Activity Notes [...] labs 11/28/2017 Appointment: [facility] [phone] [phone] [place] (15 min) Moderate 11/28/2017 Patient Education: [...] control for safer ambulation. 08/29/2017 Appointment: Geneva [facility]el[facility] [phone] [phone] (15 min) Moderate 08/29/2017 Patient Education: [...] are starting to become less controlled. Generalized zfmxpehy-bvclcqmge-djtduvzk PT- plan to move back to [place] when able 07/23/2017 Appointment: Geneva Case WPtel: [facility] [place]note 2]5 [id number] New Patient 07/23/2017 Patient Education: Patient [...] are starting to become less controlled. Generalized pvhjoalf-oqeuplitp-pyccaoci PT-plan to move back to [place] when able . Hypertension - well controlled [...]
--- OUTSIDE RECORDS SUMMARY | 2018-08-21 10:43 | XMS REPORT | CCD ---
Author Author Geneva Case MD, [facility] Address [address] [place] [address] Phone Care Team Providers Care Regional Extension Service Specialist Name Role Phone PP Unavailable CCM Unavailable Summary Purpose Interface Exchange Insurance Providers Payer name Policy type / Coverage type Covered green party ID Effective Begin Date Effective End Date WPS Medicare Part B Medicare Part B [id number] Unknown [id number] Medicare Part B [id number] Unknown Family history Mother Diagnosis Age At Onset No Known Diseases N/A Father Diagnosis Age At Onset No Known Diseases N/A Social History Social History Element Codes Description Effective Dates Living arrangements Unknown Assisted Living [place] 11/28/2017 Marital status Unknown 07/23/2017 Employment Unknown [...] Start Date Stop Date Status Fill Instructions Januvia 100 mg tablet RxNorm: 368066 TAKE 1 TABLET BY MOUTH ONCE DAILY 01/20/2018 06/18/2018 Active 01/20/2018 9:58:08 AM Alcohol Pads RxNorm: 206130 1 TOP UD 01/07/2018 No Stop Date Active amlodipine 5 mg tablet RxNorm: 201872 TAKE ONE TABLET BY MOUTH DAILY 01/06/2018 07/04/2018 Active Generic For:NORVASC 5MG 01/06/2018 10:33:58 AM N O T I C E Last quantity doesn't match original quantity gabapentin 100 mg capsule RxNorm: 708443 TAKE 1 CAPSULE BY MOUTH THREE TIMES DAILY 01/06/2018 06/04/2018 Active Generic For:NEURONTIN 100MG 01/06/2018 10:33:55 AM N O T I C E Last quantity doesn't match original quantity Protonix 40 mg tablet,delayed release RxNorm: 722969 TAKE 1 TABLET BY MOUTH EVERY MORNING 12/16/2017 04/14/2018 Active Generic For:PROTONIX 40MG Proscar 5 mg tablet RxNorm: 414043 TAKE 1 TABLET BY MOUTH ONCE DAILY 11/04/2017 05/02/2018 Active Generic For:PROSCAR 5MG 11/04/2017 9:47:27 AM Aspirin Low Dose 81 mg tablet,delayed release RxNorm: 308607 1 Tablet(s) PO QHS 10/21/2017 10/15/2018 Active amlodipine 5 mg tablet RxNorm: 381050 TAKE ONE TABLET BY MOUTH DAILY 10/07/2017 01/04/2018 Inactive Generic For:NORVASC 5MG 10/07/2017 9:55:37 AM gabapentin 100 mg capsule RxNorm: 126769 TAKE 1 CAPSULE BY MOUTH THREE TIMES DAILY 10/07/2017 01/04/2018 Inactive Generic For:NEURONTIN 100MG 10/07/2017 9:55:26 AM Januvia 100 mg tablet RxNorm: 029752 TAKE 1 TABLET BY MOUTH ONCE DAILY 09/23/2017 01/19/2018 Inactive 09/23/2017 9:25:24 AM pravastatin 40 mg tablet RxNorm: 089199 TAKE ONE TABLET BY MOUTH EVERY NIGHT AT BEDTIME 09/19/2017 03/17/2018 Active Generic For:PRAVACHOL 40MG 09/19/2017 9:12:02 AM Protonix 40 mg tablet,delayed release RxNorm: 884049 TAKE 1 TABLET BY MOUTH EVERY MORNING 09/16/2017 12/15/2017 Inactive Generic For:PROTONIX 40MG 09/16/2017 9:50:22 AM amlodipine 5 mg tablet RxNorm: 015823 TAKE ONE TABLET BY MOUTH DAILY 09/09/2017 10/06/2017 Inactive Generic For:NORVASC 5MG 09/09/2017 9:16:37 AM gabapentin 100 mg capsule RxNorm: 683821 TAKE 1 CAPSULE BY MOUTH THREE TIMES DAILY 09/09/2017 10/06/2017 Inactive Generic For:NEURONTIN 100MG 09/09/2017 9:16:33 AM Vitamin D3 1,000 unit tablet RxNorm: 264281 1 Tablet(s) PO daily 09/04/2017 07/30/2018 Active Vitamin D3 1,000 unit tablet RxNorm: 260021 1 Tablet(s) PO daily 09/03/2017 09/03/2017 Inactive glimepiride 2 mg tablet RxNorm: 511927 TAKE 1 TABLET BY MOUTH ONCE DAILY 09/02/2017 02/28/2018 Active Generic For:AMARYL 2MG 09/02/2017 9:35:29 AM Vitamin B-12 1,000 mcg tablet RxNorm: 001382 TAKE 1 TABLET BY MOUTH ONCE DAILY 09/02/2017 02/28/2018 Active 09/02/2017 9:35:38 AM pravastatin 40 mg tablet RxNorm: 569222 1 Tablet(s) PO QHS 08/22/2017 08/21/2017 Inactive pravastatin 40 mg tablet RxNorm: 490353 1 Tablet(s) PO QHS 08/22/2017 09/18/2017 Inactive glimepiride 2 mg tablet RxNorm: 709718 1 Tablet(s) PO daily 07/24/2017 09/01/2017 Inactive hydrocodone 5 mg-acetaminophen 325 mg tablet RxNorm: 354421 1-2 Tablet(s) PO Q4H as needed for pain 07/23/2017 08/28/2017 Inactive tamsulosin 0.4 mg capsule RxNorm: 449225 1 Capsule(s) PO daily No Start Date Active Plavix 75 mg tablet RxNorm: 768179 1 Tablet(s) PO QHS No Start Date Active allopurinol 100 mg tablet RxNorm: 751620 1 Tablet(s) PO BID No Start Date Active Proscar 5 mg tablet RxNorm: 606152 1 Tablet(s) PO daily No Start Date 11/03/2017 Inactive Metamucil oral packet RxNorm: 1 packet PO daily No Start Date 07/23/2017 Inactive Vitamin B-12 1,000 mcg tablet RxNorm: 162838 1 Tablet(s) PO daily No Start Date 09/01/2017 Inactive Alcohol Pads RxNorm: 035715 1 TOP UD No Start Date 01/06/2018 Inactive Vitamin D3 1,000 unit tablet RxNorm: 327121 1 Tablet(s) PO daily No Start Date 09/02/2017 Inactive gabapentin 100 mg capsule RxNorm: 201559 1 Capsule(s) PO TID No Start Date 09/08/2017 Inactive olanzapine 5 mg tablet RxNorm: 526620 1 Tablet(s) PO QHS No Start Date 07/22/2017 Inactive Lipitor 40 mg tablet RxNorm: 369940 1 Tablet(s) PO QHS No Start Date 08/21/2017 Inactive Januvia 100 mg tablet RxNorm: 665371 1 Tablet(s) PO QHS No Start Date 09/22/2017 Inactive folic acid 1 mg tablet RxNorm: 734747 1 Tablet(s) PO daily No Start Date 07/23/2017 Inactive hydrocodone 5 mg-acetaminophen 325 mg tablet RxNorm: 411291 1 Tablet(s) PO Q4H as needed for pain No Start Date 07/22/2017 Inactive Protonix 40 mg tablet,delayed release RxNorm: 181475 1 Tablet(s) PO daily No Start Date 09/15/2017 Inactive amlodipine 5 mg tablet RxNorm: 792245 1 Tablet(s) PO daily No Start Date 09/08/2017 Inactive Aspirin Low Dose 81 mg tablet,delayed release RxNorm: 709817 1 Tablet(s) PO QHS No Start Date [...] 30.6 pg 11/29/2017 Cbc With Differential Ord2 [place]% 8.0 % 11/29/2017 Cbc With Differential Ord2 [...] 1.46 K/ul 11/29/2017 Cbc With Differential Ord2 [place] ABS# 0.6 K/ul 11/29/2017 Cbc With Differential Ord2 Eos ABS# 0.2 K/ul 11/29/2017 Cbc With Differential Ord2 Baso ABS# 0.0 K/ul 11/29/2017 Lipid Ord30 CHOL 115 mg/dL 11/29/2017 Lipid Ord30 HDL 40.0 mg/dl 11/29/2017 Lipid Ord30 TRIG 114 mg/dL 11/29/2017 Lipid Ord30 LDL 52 mg/dL 11/29/2017 Lipid Ord30 C/HDL 2.9 Ratio 11/29/2017 %Hba1C Nkt222 % HbA1c 90615- 6 6.5 % 11/29/2017 %Hba1C Rpk724 Gluc Ave 140 mg/dL 11/29/2017 Comp Metabolic Zkg654 NA 140 mEq/L 11/29/2017 Comp Metabolic Fmr814 K 3.6 mEq/L 11/29/2017 Comp Metabolic Wkr550 CL 106 mEq/L 11/29/2017 Comp Metabolic Wrt415 CO2 24.0 mEq/L 11/29/2017 Comp Metabolic Mqy824 ANION GAP 14 11/29/2017 Comp Metabolic Goa068 GLUCOSE 151 mg/dL 11/29/2017 Comp Metabolic Dlp702 Creat 1.2 mg/dL 11/29/2017 Comp Metabolic Bin382 eGFR 61 ml/min/1.73m2 11/29/2017 Comp Metabolic Eos187 BUN 34 mg/dL 11/29/2017 Comp Metabolic Guo530 B/C Ratio 28.3 Ratio 11/29/2017 Comp Metabolic Axj674 CALCIUM 8.9 mg/dL 11/29/2017 Comp Metabolic Vsw243 ALK PHOS 69 U/L 11/29/2017 Comp Metabolic Niu678 AST(SGOT) 13 U/L 11/29/2017 Comp Metabolic Fam988 ALT(SGPT) 16 U/L 11/29/2017 Comp Metabolic Kiw685 BILI T 0.7 mg/dL 11/29/2017 Comp Metabolic Bpn450 ALBUMIN 3.5 g/dL 11/29/2017 Comp Metabolic Svj098 TPRO 5.7 g/dL 11/29/2017 Comp Metabolic Tcy896 GLOB 2.2 g/dL 11/29/2017 Comp Metabolic Ecw002 A/G Ratio 1.6 Ratio 11/29/2017 Comp Metabolic Nov042 Osmo 290 mOsmo 11/29/2017 Review of Systems [...] 1: 138/76 Code: 8480-6 BMI: 33.2 Code: 09745-0 Heart Rate 1: 83 bpm Height: 5'7" [...] data Encounters Encounter Performer Location Codes Date ([id number]) 33978 EST. PATIENT, LEVEL IV Diagnosis: Essential (primary) hypertension[ICD10: I10] Diagnosis: Type 2 diabetes mellitus with hyperglycemia[ICD10: E11.65] Diagnosis: Chronic kidney disease, stage 3 (moderate)[ICD10: N18.3] Diagnosis: Cervicalgia[ICD10: M54.2] Geneva Spaulding MD, [facility] CPT-4: 89723 11/28/2017 ([id number]) [id number] EST. PATIENT, LEVEL III Diagnosis: Essential (primary) hypertension[ICD10: I10] Diagnosis: Type 2 diabetes mellitus with hyperglycemia[ICD10: E11.65] Diagnosis: Foot drop, left foot[ICD10: M21.372] Geneva Spaulding MD, [facility] CPT-4: 79986 08/29/2017 OFFICE VISIT, NEW - LEVEL 4 Diagnosis: Essential (primary) hypertension[ICD10: I10] Diagnosis: Type 2 diabetes mellitus with hyperglycemia[ICD10: E11.65] Diagnosis: Chronic kidney disease, stage 3 (moderate)[ICD10: N18.3] Diagnosis: Muscle weakness (generalized)[ICD10: M62.81] Geneva Spaulding MD, [facility] CPT-4: 26409 07/23/2017 Plan of Care Planned Activity Notes [...] disease-check labs 11/28/2017 Appointment: Geneva Case WPtel: [address] [place], [place] [phone] [place] (15 min) Moderate 11/28/2017 Patient Education: [...] ambulation. 08/29/2017 Appointment: Geneva Case WPtel: [address] [place], [place] [phone] [place] (15 min) Moderate 08/29/2017 Patient Education: [...] are starting to become less controlled. Generalized ttifydgm-dmwdbifer-rbhfqzny PT- plan to move back to [place] when able 07/23/2017 App[facility]ment: Geneva [facility] [phone] [phone] New Patient 07/23/2017 Patient Education: Patient Medication [...] are starting to become less controlled. Generalized vvjzorjv-mpckjzpwd-eioiujvz PT-plan to move back to [place] when able . Hypertension - well controlled [...]
--- OUTSIDE RECORDS SUMMARY | 2018-08-21 10:45 | XMS REPORT | Continuity of Care Document ---
Author Organization Unknown Address Unknown Allergies Active Description Code Type Severity Reaction Onset Reported/Identified Relationship to Patient Clinical Status Yes metformin [id number] Drug Allergy Mild N/A 05/24/2012 Medications There [...] DISEASE 05/19/2010 Ot 414.01 CORONARY ATHEROSCLEROSIS OF [place] CORON 05/19/2010 Ot 424.1 AORTIC VALVE DISORDER [...] PERCUTANEOUS TRANSLUM CORON ANGIOPLASTY 05/19/2010 Ot V58.63 LONG-TERM(CURRENT)USE OF ANTIPLATELET/AN 05/19/2010 Ot V58.66 LONG-TERM (CURRENT) USE OF ASPIRIN 05/19/2010 Ot V58.69 OTH MED,LT,CURRENT USE 05/19/2010 Ot V85.39 BODY MASS INDEX 39.0-39.9, ADULT 05/26/2012 Ot 250.60 DIAB W NEURO MANIFEST, TYPE II OR UNSPEC 05/26/2012 Ot 272.0 PURE HYPERCHOLESTEROLEM 05/26/2012 Ot 356.9 IDIO PERIPH NEURPTHY NOS 05/26/2012 Ot 357.2 NEUROPATHY IN DIABETES 05/26/2012 Ot 414.01 CORONARY ATHEROSCLEROSIS OF [place] CORON 05/26/2012 Ot 681.10 CELLULITIS, TOE NOS 05/26/2012 Ot 682.7 CELLULITIS OF FOOT 05/26/2012 Ot 785.4 GANGRENE 05/26/2012 Ot 945.21 2ND DEG BURN TOE 05/26/2012 Ot 945.22 2ND DEG BURN FOOT 05/26/2012 Ot 948.00 BDY BRN < 10%/3D DEG NOS 05/26/2012 Ot E924.2 HOT BOILING TAP WATER 05/26/2012 Ot V45.82 PERCUTANEOUS TRANSLUM CORON ANGIOPLASTY 04/07/2014 BAIMA, DELMY L WIRELESS SALES REPRESENTATIVE Ot 272.4 04/07/2014 BAIMA, DELMY L WIRELESS SALES REPRESENTATIVE Ot 401.9 04/07/2014 BAIMA, DELMY L WIRELESS SALES REPRESENTATIVE Ot 414.00 04/07/2014 BAIMA, DELMY L WIRELESS SALES REPRESENTATIVE Ot 443.9 04/07/2014 BAIMA, DELMY L WIRELESS SALES REPRESENTATIVE Ot 780.57 04/07/2014 BAIMA, DELMY L WIRELESS SALES REPRESENTATIVE Ot 786.50 04/07/2014 GELLENDER DO, GOLDY [place] Ot 959.7 04/07/2014 GELLENDER DO, GOLDY [place] Ot E000.8 04/07/2014 GELLENDER DO, GOLDY Nowak Ot E849.0 04/07/2014 GELLENDER DO, GOLDY Nowak Ot E917.4 04/13/2014 GELLENDER DO, GOLDY Nowak Ot 959.7 [...] GELLENDER DO, GOLDY Nowak Ot E928.9 05/10/2014 GOLDY HINOJOSA DO Ot 959.7 05/10/2014 GOLDY HINOJOSA DO Ot E000.8 05/10/2014 GOLDY HINOJOSA DO Ot E928.9 11/24/2014 Ot 573.8 11/24/2014 Ot [...] 11/24/2014 Ot 782.0 11/24/2014 BAIMA, DELMY L WIRELESS SALES REPRESENTATIVE Ot 272.4 11/24/2014 BAIMA, DELMY L WIRELESS SALES REPRESENTATIVE Ot 401.9 11/24/2014 BAIMA, DELMY L WIRELESS SALES REPRESENTATIVE Ot 414.00 11/24/2014 BAIMA, DELMY L WIRELESS SALES REPRESENTATIVE Ot 443.9 11/24/2014 BAIMA, DELMY L WIRELESS SALES REPRESENTATIVE Ot 780.57 11/24/2014 BAIMA, DELMY L WIRELESS SALES REPRESENTATIVE Ot 786.50 11/24/2014 GOLDY HINOJOSA DO Ot 959.7 11/24/2014 GOLDY HINOJOSA DO Ot E000.8 11/24/2014 GELLENGOLDY CHRISTIANSEN DO Ot E849.0 11/24/2014 GELLENDER DO, GOLDY Nowak Ot E917.4 11/24/2014 GELLENDER DO, GOLDY Nowak Ot 959.7 11/24/2014 GELLENDER DO, GOLDY Nowak Ot E000.8 11/24/2014 GELLENDER DO, GOLDY Nowak Ot E928.9 12/14/2014 GELLENDER DO, GOLDY Nowak Ot 440.20 12/14/2014 GELLENDER DOGOLDY Ot 785.9 11/08/2015 Ot 433.30 MULT BILTRAL ARTERY OCCLUSION WO CEREBRA 11/08/2015 Ot 715.97 OSTEOARTHROS NOS-ANKLE 11/08/2015 Ot 719.46 JOINT PAIN-L/LEG 11/08/2015 Ot 733.90 BONE CARTILAGE DIS NOS 11/08/2015 Ot 959.7 LOWER LEG INJURY NOS 11/08/2015 Ot E000.8 OTHER EXTERNAL CAUSE STATUS 11/08/2015 Ot E849.0 ACCIDENT IN HOME 11/08/2015 Ot E888.9 FALL NOS 11/08/2015 Ot 719.41 JOINT PAIN-SHLDER 11/08/2015 Ot 733.90 BONE CARTILAGE DIS NOS 11/08/2015 Ot 440.20 ATHEROSCLEROSIS [place] ARTERIES EXTREMIT 11/08/2015 Ot 782.0 SKIN SENSATION DISTURB 11/08/2015 BAIMA, DELMY L WIRELESS SALES REPRESENTATIVE Ot 272.4 HYPERLIPIDEMIA NEC/NOS 11/08/2015 BAIMA, DELMY L WIRELESS SALES REPRESENTATIVE Ot 401.9 HYPERTENSION NOS 11/08/2015 BAIMA, DELMY L WIRELESS SALES REPRESENTATIVE Ot 414.00 CORON ATHEROSCLER NOS TYPE VESSEL, NATIV 11/08/2015 BAIMA, DELMY L WIRELESS SALES REPRESENTATIVE Ot 443.9 PERIPH VASCULAR DIS NOS 11/08/2015 BAIMA, DELMY L WIRELESS SALES REPRESENTATIVE Ot 780.57 UNSPECIFIED SLEEP APNEA 11/08/2015 BAIMA, DELMY L WIRELESS SALES REPRESENTATIVE Ot 786.50 CHEST PAIN NOS 11/08/2015 PASCUALDER GOLDY MENDEZ Ot 959.7 LOWER LEG INJURY NOS 11/08/2015 PASCUALDER , GOLDY Nowak Ot E000.8 OTHER EXTERNAL CAUSE STATUS 11/08/2015 GOLDY HINOJOSA DO Ot E849.0 ACCIDENT IN HOME 11/08/2015 GOLDY HINOJOSA DO Ot E917.4 STAT OB W/O SUB FALL NEC 11/08/2015 GOLDY HINOJOSA DO Ot 959.7 LOWER LEG INJURY NOS 11/08/2015 GOLDY HINOJOSA DO Ot E000.8 OTHER EXTERNAL CAUSE STATUS 11/08/2015 GOLDY HINOJOSA DO Ot E928.9 ACCIDENT NOS 11/08/2015 GOLDY HINOJOSA DO Ot 440.20 ATHEROSCLEROSIS [place] ARTERIES EXTREMIT 11/08/2015 GOLDY HINOJOSA DO Ot 785.9 CARDIOVAS SYS SYMP NEC 11/09/2015 BAIMA, DELMY L WIRELESS SALES REPRESENTATIVE Ot E78.4 OTHER HYPERLIPIDEMIA 11/09/2015 BAIMA, DELMY L WIRELESS SALES REPRESENTATIVE Ot I10 ESSENTIAL (PRIMARY) HYPERTENSION 11/09/2015 BAIMA, DELMY L WIRELESS SALES REPRESENTATIVE Ot I25.10 ATHSCL HEART DISEASE OF [place] CORONARY 11/09/2015 BAIMA, DELMY L WIRELESS SALES REPRESENTATIVE Ot I65.23 OCCLUSION AND STENOSIS OF [place]AL [place] 11/09/2015 BAIMA, DELMY L WIRELESS SALES REPRESENTATIVE Ot E78.4 OTHER HYPERLIPIDEMIA 11/09/2015 BAIMA, DELMY L WIRELESS SALES REPRESENTATIVE Ot I10 ESSENTIAL (PRIMARY) HYPERTENSION 11/09/2015 BAIMA, DELMY L WIRELESS SALES REPRESENTATIVE Ot I25.10 ATHSCL HEART DISEASE OF [place] CORONARY 11/09/2015 BAIMA, DELMY L WIRELESS SALES REPRESENTATIVE Ot I65.23 OCCLUSION AND STENOSIS OF [place]AL [place] 11/09/2015 BAIMA, DELMY L WIRELESS SALES REPRESENTATIVE Ot E78.4 OTHER HYPERLIPIDEMIA 11/09/2015 BAIMA, DELMY L WIRELESS SALES REPRESENTATIVE Ot I10 ESSENTIAL (PRIMARY) HYPERTENSION 11/09/2015 BAIMA, DELMY L WIRELESS SALES REPRESENTATIVE Ot I25.10 ATHSCL HEART DISEASE OF [place] CORONARY 11/09/2015 BAIMA, DELMY L WIRELESS SALES REPRESENTATIVE Ot I65.23 OCCLUSION AND STENOSIS OF [place] 12/02/2015 BAIMA, DELMY L WIRELESS SALES REPRESENTATIVE Ot E78.4 OTHER HYPERLIPIDEMIA 12/02/2015 BAIMA, DELMY L WIRELESS SALES REPRESENTATIVE Ot I10 ESSENTIAL (PRIMARY) HYPERTENSION 12/02/2015 BAIMA, DELMY L WIRELESS SALES REPRESENTATIVE Ot I25.10 ATHSCL HEART DISEASE OF [place] CORONARY 12/02/2015 BAIMA, DELMY L WIRELESS SALES REPRESENTATIVE Ot I65.23 OCCLUSION AND STENOSIS OF [place] 07/03/2016 BAIMA, DELMY L WIRELESS SALES REPRESENTATIVE Ot 272.4 HYPERLIPIDEMIA NEC/NOS 07/03/2016 BAIMA, DELMY L WIRELESS SALES REPRESENTATIVE Ot 401.9 HYPERTENSION NOS 07/03/2016 BAIMA, DELMY L WIRELESS SALES REPRESENTATIVE Ot 414.00 CORON ATHEROSCLER NOS TYPE VESSEL, NATIV 07/03/2016 BAIMA, DELMY L WIRELESS SALES REPRESENTATIVE Ot 443.9 PERIPH VASCULAR DIS NOS 07/03/2016 BAIMA, DELMY L WIRELESS SALES REPRESENTATIVE Ot 780.57 UNSPECIFIED SLEEP APNEA 07/03/2016 BAIMA, DELMY L WIRELESS SALES REPRESENTATIVE Ot 786.50 CHEST PAIN NOS 12/28/2016 BAIMA, DELMY L WIRELESS SALES REPRESENTATIVE Ot E78.4 OTHER HYPERLIPIDEMIA 12/28/2016 BAIMA, DELMY L WIRELESS SALES REPRESENTATIVE Ot I10 ESSENTIAL (PRIMARY) HYPERTENSION 12/28/2016 BAIMA, DELMY L WIRELESS SALES REPRESENTATIVE Ot I25.10 ATHSCL HEART DISEASE OF [place] CORONARY 12/28/2016 BAIMA, DELMY L WIRELESS SALES REPRESENTATIVE Ot I65.23 OCCLUSION AND STENOSIS OF [place] 01/01/2017 BAIMA, DELMY L WIRELESS SALES REPRESENTATIVE Ot 272.4 HYPERLIPIDEMIA NEC/NOS 01/01/2017 BAIMA, DELMY L WIRELESS SALES REPRESENTATIVE Ot 401.9 HYPERTENSION NOS 01/01/2017 BAIMA, DELMY L WIRELESS SALES REPRESENTATIVE Ot 414.00 CORON ATHEROSCLER NOS TYPE VESSEL, NATIV 01/01/2017 BAIMA, DELMY L WIRELESS SALES REPRESENTATIVE Ot 443.9 PERIPH VASCULAR DIS NOS 01/01/2017 BAIMA, DELMY L WIRELESS SALES REPRESENTATIVE Ot 780.57 UNSPECIFIED SLEEP APNEA 01/01/2017 BAIMA, DELMY L WIRELESS SALES REPRESENTATIVE Ot 786.50 CHEST PAIN NOS 01/01/2017 ASHISH MENDEZGOLDY Ot 959.7 LOWER LEG INJURY NOS 01/01/2017 GOLDY HINOJOSA DO Ot E000.8 OTHER EXTERNAL CAUSE STATUS 01/01/2017 ASHISH GOLDY MENDEZ Ot E849.0 ACCIDENT IN HOME 01/01/2017 ASHISH GOLDY MENDEZ Ot E917.4 STAT OB W/O SUB FALL NEC 01/01/2017 ASHISH GOLDY MENDEZ Ot 959.7 LOWER LEG INJURY NOS 01/01/2017 ASHISH GOLDY MENDEZ Ot E000.8 OTHER EXTERNAL CAUSE STATUS 01/01/2017 ASHISH GOLDY MENDEZ Ot E928.9 ACCIDENT NOS 01/01/2017 LISANDRAVINNIEDOMINGUEZGOLDY Ot 440.20 ATHEROSCLEROSIS [place] ARTERIES EXTREMIT 01/01/2017 GELLENDER DO, GOLDY A Ot 785.9 CARDIOVAS SYS SYMP NEC 01/01/2017 DELMY ESTRADA WIRELESS SALES REPRESENTATIVE Ot E78.4 OTHER HYPERLIPIDEMIA 01/01/2017 DELMY ESTRADA WIRELESS SALES REPRESENTATIVE Ot I10 ESSENTIAL (PRIMARY) HYPERTENSION 01/01/2017 DELMY ESTRADA WIRELESS SALES REPRESENTATIVE Ot I25.10 ATHSCL HEART DISEASE OF [place] CORONARY 01/01/2017 DELMY ESTRADA WIRELESS SALES REPRESENTATIVE Ot I65.23 OCCLUSION AND STENOSIS OF [place]AL [place] 01/02/2017 CHANTALE TELLEZ FACC, ALI FACP CCDS Ot 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 01/02/2017 CHANTALE TELLEZ FACC, ALI FACP CCDS Ot E78.5 HYPERLIPIDEMIA, UNSPECIFIED 01/02/2017 CHANTALE TELLEZ FACC, ALI FACP CCDS Ot I12.9 HYPERTENSIVE CHRONIC KIDNEY DISEASE W ST 01/02/2017 CHANTALE TELLEZ FACC, ALI FACP CCDS Ot I25.10 ATHSCL HEART DISEASE OF [place] CORONARY 01/02/2017 CHANTALE TELLEZ FACC, DEEJAY FACP CCDS Ot 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 [place] 01/02/2017 CHANTALE TELLEZ FACC, ALI FACP CCDS Ot K21.9 GASTRO-ESOPHAGEAL REFLUX DISEASE WITHOUT 01/02/2017 CHANTALE TELLEZ FACC, ALI FACP CCDS Ot N18.3 CHRONIC KIDNEY DISEASE, STAGE 3 (MODERAT 01/02/2017 CHANTALE TELLEZ FACC, ALI FACP CCDS Ot Z79.84 MILL TENDER WASHING (CURRENT) USE OF ORAL HYPOGLYC 01/02/2017 CHANTALE TELLEZ FACC, ALI FACP CCDS Ot Z79.899 OTHER USP (CURRENT) DRUG THERAPY 01/02/2017 CHANTALE TELLEZ FACC, ALI FACP CCDS Ot Z95.5 PRESENCE OF CORONARY ANGIOPLASTY IMPLANT 01/09/2017 CHANTALE TELLEZ FACC, ALI FACP CCDS Ot 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 01/09/2017 CHANTALE TELLEZ FACC, ALI FACP CCDS Ot E78.5 HYPERLIPIDEMIA, UNSPECIFIED 01/09/2017 CHANTALE TELLEZ FACC, ALI FACP CCDS Ot I12.9 HYPERTENSIVE CHRONIC KIDNEY DISEASE W ST 01/09/2017 CHANTALE TELLEZ FACC, ALI FACP CCDS Ot I25.10 ATHSCL HEART DISEASE OF [place] CORONARY 01/09/2017 CHANTALE TELLEZ FACC, ALI FACP CCDS Ot 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 [place] 01/09/2017 CHANTALE TELLEZ FACC, ALI FACP CCDS Ot K21.9 GASTRO-ESOPHAGEAL REFLUX DISEASE WITHOUT 01/09/2017 CHANTALE TELLEZ FACC, ALI FACP CCDS Ot N18.3 CHRONIC KIDNEY DISEASE, STAGE 3 (MODERAT 01/09/2017 CHANTALE TELLEZ FACC, ALI FACP CCDS Ot Z79.84 USP (CURRENT) USE OF ORAL HYPOGLYC 01/09/2017 CHANTALE TELLEZ FACC, ALI FACP CCDS Ot Z79.899 OTHER MILL TENDER WASHING (CURRENT) DRUG THERAPY 01/09/2017 CHANTALE TELLEZ FACC, ALI FACP CCDS Ot Z95.5 PRESENCE OF CORONARY ANGIOPLASTY IMPLANT 01/15/2017 CHANTALE TELLEZ FACC, ALI FACP CCDS Ot 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 01/15/2017 CHANTALE TELLEZ FACC, ALI FACP CCDS Ot E78.5 HYPERLIPIDEMIA, UNSPECIFIED 01/15/2017 CHANTALE TELLEZ FACC, ALI FACP CCDS Ot I12.9 HYPERTENSIVE CHRONIC KIDNEY DISEASE W ST 01/15/2017 CHANTALE TELLEZ FACC, ALI FACP CCDS Ot I25.10 ATHSCL HEART DISEASE OF [place] CORONARY 01/15/2017 CHANTALE TELLEZ FACC, ALI FACP CCDS Ot 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 [place] 01/15/2017 CHANTALE TELLEZ FACC, ALI FACP CCDS Ot K21.9 GASTRO-ESOPHAGEAL REFLUX DISEASE WITHOUT 01/15/2017 CHANTALE TELLEZ FACC, ALI FACP CCDS Ot N18.3 CHRONIC KIDNEY DISEASE, STAGE 3 (MODERAT 01/15/2017 CHANTALE TELLEZ FACC, ALI FACP CCDS Ot Z79.84 MILL TENDER WASHING (CURRENT) USE OF ORAL HYPOGLYC 01/15/2017 CHANTALE TELLEZ FACC, ALI FACP CCDS Ot Z79.899 OTHER MILL TENDER WASHING (CURRENT) DRUG THERAPY 01/15/2017 CHANTALE TELLEZ FACC, ALI FACP CCDS Ot Z95.5 PRESENCE OF CORONARY ANGIOPLASTY IMPLANT 01/21/2017 DELMY ESTRADA WIRELESS SALES REPRESENTATIVE Ot 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 [place] ARTERIES OF EXTRM W INTRMT 01/21/2017 DELMY ESTRADA WIRELESS SALES REPRESENTATIVE Ot 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 [place] ARTERIES OF EXTRM W INTRMT 01/22/2017 DAVIDDELMY MEJIA L WIRELESS SALES REPRESENTATIVE Ot 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 02/12/2017 BAIMA, DELMY L WIRELESS SALES REPRESENTATIVE Ot E78.4 OTHER HYPERLIPIDEMIA 02/12/2017 BAIMA, DELMY L WIRELESS SALES REPRESENTATIVE Ot I10 ESSENTIAL (PRIMARY) HYPERTENSION 02/12/2017 BAIMA, DELMY L WIRELESS SALES REPRESENTATIVE Ot I25.10 ATHSCL HEART DISEASE OF [place] CORONARY 02/12/2017 BAIMA, DELMY L WIRELESS SALES REPRESENTATIVE Ot I65.23 OCCLUSION AND STENOSIS OF [place]AL [place] 02/12/2017 BAIMA, DELMY L WIRELESS SALES REPRESENTATIVE Ot 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 05/23/2017 BAIMA, DELMY L WIRELESS SALES REPRESENTATIVE Ot E78.4 OTHER HYPERLIPIDEMIA 05/23/2017 BAIMA, DELMY L WIRELESS SALES REPRESENTATIVE Ot I10 ESSENTIAL (PRIMARY) HYPERTENSION 05/23/2017 BAIMA, DELMY L WIRELESS SALES REPRESENTATIVE Ot I25.10 ATHSCL HEART DISEASE OF [place] CORONARY 05/23/2017 BAIMA, DELMY L WIRELESS SALES REPRESENTATIVE Ot I65.23 OCCLUSION AND STENOSIS OF [place] 05/23/2017 BAIMA, DELMY L WIRELESS SALES REPRESENTATIVE Ot 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 [place] ARTERIES OF EXTRM W [facility] 05/24/2017 JOEL LEONARD MD Ot E11.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 MELLITUS WITH FOOT ULCER 05/24/2017 JOEL LEONARD MD Ot 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 05/24/2017 JOEL LEONARD MD Ot 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 05/27/2017 JOEL LEONARD MD Ot E11.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 MELLITUS WITH FOOT ULCER 05/27/2017 JOEL LEONARD MD Ot 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 05/27/2017 JOEL LEONARD MD Ot 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 05/30/2017 BAIMA, DELMY L WIRELESS SALES REPRESENTATIVE Ot E78.4 OTHER HYPERLIPIDEMIA 05/30/2017 BAIMA, DELMY L WIRELESS SALES REPRESENTATIVE Ot I10 ESSENTIAL (PRIMARY) HYPERTENSION 05/30/2017 BAIMA, DELMY L WIRELESS SALES REPRESENTATIVE Ot I25.10 ATHSCL HEART DISEASE OF [place] CORONARY 05/30/2017 BAIMA, DELMY L WIRELESS SALES REPRESENTATIVE Ot I65.23 OCCLUSION AND STENOSIS OF [place] 05/30/2017 DELMY ESTRADA WIRELESS SALES REPRESENTATIVE Ot 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 [place] ARTERIES OF EXTRM W INTRMT 05/30/2017 JOEL LEONARD MD Ot E11.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 MELLITUS WITH FOOT ULCER 05/30/2017 JOEL LEONARD MD Ot 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 UL 05/30/2017 JOEL LEONARD MD Ot 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 05/30/2017 JOEL LEONARD MD, Ot E11.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 MELLITUS WITH FOOT ULCER 05/30/2017 JOEL LEONARD MD Ot 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 UL 05/30/2017 JOEL LEONARD MD Ot 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 05/31/2017 JOEL LEONARD MD, Ot E11.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 MELLITUS WITH FOOT ULCER 05/31/2017 JOEL LEONARD MD Ot 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 UL 05/31/2017 JOEL LEONARD MD Ot 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 06/05/2017 JOEL LEONARD MD Ot E11.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 MELLITUS WITH FOOT ULCER 06/05/2017 JOEL LEONARD MD Ot 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 UL 06/05/2017 JOEL LEONARD MD Ot 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 06/12/2017 SOLO GEORGE MD Ot E11.40 TYPE 2 DIABETES MELLITUS WITH DIABETIC N 06/12/2017 ARIEL TELLEZ, SOLO [place] Ot E78.00 PURE HYPERCHOLESTEROLEMIA, UNSPECIFIED 06/12/2017 SOLO GEORGE MD Ot E87.8 OTH DISORDERS OF ELECTROLYTE AND FLUID B 06/12/2017 SOLO GEORGE MD Ot I10 ESSENTIAL (PRIMARY) HYPERTENSION 06/12/2017 SOLO GEORGE MD Ot I25.10 ATHSCL HEART DISEASE OF [place] CORONARY 06/12/2017 SOLO GEORGE MD Ot K21.9 GASTRO-ESOPHAGEAL REFLUX DISEASE WITHOUT 06/12/2017 SOLO GEORGE MD Ot 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, UNSPECIFIED 06/12/2017 SOLO GEORGE MD, Ot N39.0 URINARY TRACT INFECTION, SITE NOT SPECIF 06/12/2017 SOLO GEORGE MD, Ot R25.1 TREMOR, UNSPECIFIED 06/12/2017 SOLO GEORGE MD, Ot R51 HEADACHE 06/12/2017 SOLO GEORGE MD, Ot Z79.82 MILL TENDER WASHING (CURRENT) USE OF ASPIRIN 06/12/2017 SOLO GEORGE MD, Ot Z79.84 MILL TENDER WASHING (CURRENT) USE OF ORAL HYPOGLYC 06/12/2017 SOLO GEORGE MD, Ot Z86.73 PRSNL HX OF TIA (TIA), AND CEREB INFRC W 06/12/2017 SOLO GEORGE MD, Ot Z87.442 PERSONAL HISTORY OF URINARY CALCULI 06/12/2017 SOLO GEORGE MD, Ot Z87.891 PERSONAL HISTORY OF NICOTINE DEPENDENCE 06/12/2017 SOLO GEORGE MD, Ot Z88.8 ALLERGY STATUS TO [facility] DRUG/MEDS/BIOL SUB 06/12/2017 SOLO GEORGE MD, Ot Z90.49 ACQUIRED ABSENCE OF OTHER SPECIFIED PART 06/12/2017 SOLO GEORGE MD, Ot Z90.89 ACQUIRED ABSENCE OF OTHER ORGANS 06/12/2017 SOLO GEORGE MD, Ot Z95.1 PRESENCE OF AORTOCORONARY BYPASS GRAFT 06/14/2017 SOLO GEORGE MD Ot E11.40 TYPE 2 DIABETES MELLITUS WITH DIABETIC N 06/14/2017 SOLO GEORGE MD, Ot E78.00 PURE HYPERCHOLESTEROLEMIA, UNSPECIFIED 06/14/2017 SOLO GEORGE MD, Ot E87.8 OT DISORDERS OF ELECTROLYTE AND FLUID B 06/14/2017 SOLO GEORGE MD, Ot I10 ESSENTIAL (PRIMARY) HYPERTENSION 06/14/2017 SOLO GEORGE MD, Ot I25.10 ATHSCL HEART DISEASE OF [place] CORONARY 06/14/2017 SOLO GEORGE MD, Ot K21.9 GASTRO-ESOPHAGEAL REFLUX DISEASE WITHOUT 06/14/2017 SOLO GEORGE MD, Ot 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, UNSPECIFIED 06/14/2017 SOLO GEORGE MD, Ot N39.0 URINARY TRACT INFECTION, SITE NOT SPECIF 06/14/2017 SOLO GEORGE MD, Ot R25.1 TREMOR, UNSPECIFIED 06/14/2017 SOLO GEORGE MD, Ot R51 HEADACHE 06/14/2017 SOLO GEORGE MD Ot Z79.82 MILL TENDER WASHING (CURRENT) USE OF ASPIRIN 06/14/2017 SOLO GEORGE MD Ot Z79.84 MILL TENDER WASHING (CURRENT) USE OF ORAL HYPOGLYC 06/14/2017 SOLO GEORGE MD Ot Z86.73 PRSNL HX OF TIA (TIA), AND CEREB INFRC W 06/14/2017 SOLO GEORGE MD, Ot Z87.442 PERSONAL HISTORY OF URINARY CALCULI 06/14/2017 SOLO GEORGE MD, Ot Z87.891 PERSONAL HISTORY OF NICOTINE DEPENDENCE 06/14/2017 SOLO GEORGE MD, Ot Z88.8 ALLERGY STATUS TO [facility] DRUG/MEDS/BIOL SUB 06/14/2017 SOLO GEORGE MD Ot Z90.49 ACQUIRED ABSENCE OF OTHER SPECIFIED PART 06/14/2017 SOLO GEORGE MD Ot Z90.89 ACQUIRED ABSENCE OF OTHER ORGANS 06/14/2017 SOLO GEORGE MD Ot Z95.1 PRESENCE OF AORTOCORONARY BYPASS GRAFT 06/14/2017 TERESITA MART APRN Ot E11.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 MELLITUS WITH FOOT ULCER 06/14/2017 TERESITA MART APRN Ot 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 UL 06/14/2017 TERESITA MART APRN Ot 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 06/14/2017 JOEL LEONARD MD Ot E11.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 MELLITUS WITH FOOT ULCER 06/14/2017 JOEL LEONARD MD Ot 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 UL 06/14/2017 JOEL LEONARD MD Ot 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 06/19/2017 JOEL LEONARD MD Ot E11.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 MELLITUS WITH FOOT ULCER 06/19/2017 JOEL LEONARD MD Ot 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 UL 06/19/2017 JOEL LEONARD MD Ot 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 06/21/2017 LISANDRACONCHA GOLDY MENDEZ Ot J98.11 ATELECTASIS 06/21/2017 PASCUALЕЛЕНА GOLDY MENDEZ Ot R91.8 OTHER NONSPECIFIC ABNORMAL FINDING OF [place] 06/28/2017 PASCUALЕЛЕНА GOLDY MENDEZ Ot I25.10 ATHSCL HEART DISEASE OF [place] CORONARY 06/28/2017 PASCUALЕЛЕНА GOLDY MENDEZ Ot I51.7 CARDIOMEGALY 06/28/2017 PASCUALЕЛЕНА GOLDY MENDEZ Ot 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, 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 06/28/2017 [facility]DRAVON [facility] GOLDY MENDEZ Ot K76.89 OTHER SPECIFIED DISEASES OF LIVER 06/28/2017 PASCUALЕЛЕНА GOLDY MENDEZ Ot N28.1 CYST OF KIDNEY, ACQUIRED 06/28/2017 GOLDY HINOJOSA DO Ot R91.8 OTHER NONSPECIFIC ABNORMAL FINDING OF [place] 07/01/2017 JOEL LEONARD MD Ot E11.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 MELLITUS WITH FOOT ULCER 07/01/2017 JOEL LEONARD MD Ot 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 UL 07/01/2017 JOEL LEONARD MD Ot 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 07/02/2017 GOLDY HINOJOSA DO Ot E04.2 NONTOXIC MULTINODULAR GOITER 07/03/2017 DELMY ESTRADA W[employer]LESS SALES REPRESENTATIVE Ot 272.4 HYPERLIPIDEMIA NEC/NOS 07/03/2017 DELMY ESTRADA L WIRELESS SALES REPRESENTATIVE Ot 401.9 HYPERTENSION NOS 07/03/2017 DELMY ESTRADA L WIRELESS SALES REPRESENTATIVE Ot 414.00 CORON ATHEROSCLER NOS TYPE VESSEL, NATIV 07/03/2017 DELMY ESTRADA WIRELESS SALES REPRESENTATIVE Ot 443.9 PERIPH VASCULAR DIS NOS 07/03/2017 DELMY ESTRADA L WIRELESS SALES REPRESENTATIVE Ot 780.57 UNSPECIFIED SLEEP APNEA 07/03/2017 DELMY ESTRADA L WIRE[employer]ESS SALES REPRESENTATIVE Ot 786.50 CHEST PAIN NOS 07/03/2017 GOLDY HINOJOSA DO Ot 959.7 LOWER LEG INJURY NOS 07/03/2017 GOLDY HINOJOSA DO Ot E000.8 OTHER EXTERNAL CAUSE STATUS 07/03/2017 GOLDY HINOJOSA DO Ot E849.0 ACCIDENT IN HOME 07/03/2017 GOLDY HINOJOSA DO Ot E917.4 STAT OB W/O SUB FALL NEC 07/03/2017 GOLDY HINOJOSA DO Ot 959.7 LOWER LEG INJURY NOS 07/03/2017 GOLDY HINOJOSA DO Ot E000.8 OTHER EXTERNAL CAUSE STATUS 07/03/2017 GOLDY HINOJOSA DO Ot E928.9 ACCIDENT NOS 07/03/2017 GOLDY HINOJOSA DO Ot 440.20 ATHEROSCLEROSIS [place] ARTERIES EXTREMIT 07/03/2017 GOLDY HINOJOSA DO Ot 785.9 CARDIOVAS SYS SYMP NEC 07/03/2017 SEAN DELMY L WIRELESS SALES REPRESENTATIVE Ot E78.4 OTHER HYPERLIPIDEMIA 07/03/2017 BAIMA, DELMY L W[employer]ESS SALES REPRESENTATIVE Ot I10 ESSENTIAL (PRIMARY) HYPERTENSION 07/03/2017 DAVIDMA DELMY L WIRELESS SALES REPRESENTATIVE Ot I25.10 ATHSCL HEART DISEASE OF [place] CORONARY 07/03/2017 BAIMA, DELMY L WIRE[employer]ESS SALES REPRESENTATIVE Ot I65.23 OCCLUSION AND STENOSIS OF BILATERAL [place] 07/03/2017 BAIMA, DELMY L WIRELESS SALES REPRESENTATIVE Ot E78.4 OTHER HYPERLIPIDEMIA 07/03/2017 BAIMA, DELMY L WIRELESS SALES REPRESENTATIVE Ot I10 ESSENTIAL (PRIMARY) HYPERTENSION 07/03/2017 BAIMA, DELMY L WIRELESS SALES REPRESENTATIVE Ot I25.10 ATHSCL HEART DISEASE OF [place] CORONARY 07/03/2017 BAIMA, DELMY L WIRELESS SALES REPRESENTATIVE Ot I65.23 OCCLUSION AND STENOSIS OF BILATERAL [place] 07/03/2017 DAVIDMA DELMY L WIRELESS SALES REPRESENTATIVE Ot 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 [place] ARTERIES OF EXTRM W INTRMT 07/03/2017 JOEL LEONARD MD Ot E11.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 MELLITUS WITH FOOT ULCER 07/03/2017 JOEL LEONARD MD Ot 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 UL 07/03/2017 JOEL LEONARD MD Ot 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 07/03/2017 JOEL LEONARD MD Ot E11.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 MELLITUS WITH FOOT ULCER 07/03/2017 JOEL LEONARD MD Ot 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 UL 07/03/2017 JOEL LEONARD MD Ot 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 07/03/2017 JOEL LEONARD MD Ot E11.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 MELLITUS WITH FOOT ULCER 07/03/2017 JOEL LEONARD MD Ot 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 UL 07/03/2017 JOEL LEONARD MD Ot 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 07/03/2017 TERESITA MART APRN Ot E11.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 MELLITUS WITH FOOT ULCER 07/03/2017 TERESITA MART APRN Ot 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 UL 07/03/2017 TERESITA MART APRN Ot 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 07/03/2017 JOEL LEONARD MD Ot E11.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 MELLITUS WITH FOOT ULCER 07/03/2017 JOEL LEONARD MD Ot 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 UL 07/03/2017 JOEL LEONARD MD Ot 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 07/03/2017 GOLDY HINOJOSA DO Ot J98.11 ATELECTASIS 07/03/2017 GOLDY HINOJOSA DO Ot R91.8 OTHER NONSPECIFIC ABNORMAL FINDING OF [place] 07/03/2017 GOLDY HINOJOSA DO Ot I25.10 ATHSCL HEART DISEASE OF [place] CORONARY 07/03/2017 GOLDY HINOJOSA DO Ot I51.7 CARDIOMEGALY 07/03/2017 GOLDY HINOJOSA DO Ot 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, 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 07/03/2017 GOLDY HINOJOSA DO Ot K76.89 OTHER SPECIFIED DISEASES OF LIVER 07/03/2017 GOLDY HINOJOSA DO Ot N28.1 CYST OF KIDNEY, ACQUIRED 07/03/2017 GOLDY HINOJOSA DO Ot R91.8 OTHER NONSPECIFIC ABNORMAL FINDING OF [place] 07/03/2017 JOEL LEONARD MD Ot E11.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 MELLITUS WITH FOOT ULCER 07/03/2017 JOEL LEONARD MD Ot 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 UL 07/03/2017 JOEL LEONARD MD Ot 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 07/03/2017 GOLDY HINOJOSA DO Ot E04.2 NONTOXIC MULTINODULAR GOITER 07/04/2017 DAVIDJACKIE DELMY L W[employer]ESS SALES REPRESENTATIVE Ot 272.4 HYPERLIPIDEMIA NEC/NOS 07/04/2017 DAVIDJACKIE DELMY L W[employer]LESS SALES REPRESENTATIVE Ot 401.9 HYPERTENSION NOS 07/04/2017 DAVIDJACKIE DELMY L WIRELESS SALES REPRESENTATIVE Ot 414.00 CORON ATHEROSCLER NOS TYPE VESSEL, NATIV 07/04/2017 DAVIDJACKIE DELMY L WIRELESS SALES REPRESENTATIVE Ot 443.9 PERIPH VASCULAR DIS NOS 07/04/2017 DAVIDJACKIE DELMY L WIRELESS SALES REPRESENTATIVE Ot 780.57 UNSPECIFIED SLEEP APNEA 07/04/2017 DAVIDJACKIE DELMY L WIRELESS SALES REPRESENTATIVE Ot 786.50 CHEST PAIN NOS 07/04/2017 GOLDY HINOJOSA DO Ot 959.7 LOWER LEG INJURY NOS 07/04/2017 GOLDY HINOJOSA DO Ot E000.8 OTHER EXTERNAL CAUSE STATUS 07/04/2017 GOLDY HINOJOSA DO Ot E849.0 ACCIDENT IN HOME 07/04/2017 GOLDY HINOJOSA DO Ot E917.4 STAT OB W/O SUB FALL NEC 07/04/2017 GOLDY HINOJOSA DO Ot 959.7 LOWER LEG INJURY NOS 07/04/2017 GOLDY HINOJOSA DO Ot E000.8 OTHER EXTERNAL CAUSE STATUS 07/04/2017 GOLDY HINOJOSA DO Ot E928.9 ACCIDENT NOS 07/04/2017 GOLDY HINOJOSA DO Ot 440.20 ATHEROSCLEROSIS [place] ARTERIES EXTREMIT 07/04/2017 GOLDY HINOJOSA DO Ot 785.9 CARDIOVAS SYS SYMP NEC 07/04/2017 SEAN DELMY L WIRELESS SALES REPRESENTATIVE Ot E78.4 OTHER HYPERLIPIDEMIA 07/04/2017 SEAN DELMY L WIRELESS SALES REPRESENTATIVE Ot I10 ESSENTIAL (PRIMARY) HYPERTENSION 07/04/2017 SEAN, DELMY L WIRELESS SALES REPRESENTATIVE Ot I25.10 ATHSCL HEART DISEASE OF [place] CORONARY 07/04/2017 SEAN DELMY L WIRELESS SALES REPRESENTATIVE Ot I65.23 OCCLUSION AND STENOSIS OF [place]AL [place] 07/04/2017 SEAN, DELMY L WIRELESS SALES REPRESENTATIVE Ot E78.4 OTHER HYPERLIPIDEMIA 07/04/2017 BAIMA, DELMY L WIRELESS SALES REPRESENTATIVE Ot I10 ESSENTIAL (PRIMARY) HYPERTENSION 07/04/2017 SEAN, DELMY L WIRELESS SALES REPRESENTATIVE Ot I25.10 ATHSCL HEART DISEASE OF [place] CORONARY 07/04/2017 DELMY ESTRADA WIRELESS SALES REPRESENTATIVE Ot I65.23 OCCLUSION AND STENOSIS OF [place] 07/04/2017 DELMY ESTRADA WIRELESS SALES REPRESENTATIVE Ot 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 [place] ARTERIES OF EXTRM W INTRMT 07/04/2017 JOEL LEONARD MD Ot E11.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 MELLITUS WITH FOOT ULCER 07/04/2017 JOEL LEONARD MD Ot 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 UL 07/04/2017 JOEL LEONARD MD Ot 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 07/04/2017 JOEL LEONARD MD, Ot E11.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 MELLITUS WITH FOOT ULCER 07/04/2017 JOEL LEONARD MD Ot 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 UL 07/04/2017 JOEL LEONARD MD Ot 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 07/04/2017 JOEL LEONARD MD Ot E11.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 MELLITUS WITH FOOT ULCER 07/04/2017 JOEL LEONARD MD Ot 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 UL 07/04/2017 JOEL LEONARD MD Ot 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 07/04/2017 TERESITA MART APRN Ot E11.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 MELLITUS WITH FOOT ULCER 07/04/2017 TERESITA MART APRN Ot 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 UL 07/04/2017 TERESITA MART APRN Ot 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 07/04/2017 JOEL LEONARD MD Ot E11.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 MELLITUS WITH FOOT ULCER 07/04/2017 JOEL LEONARD MD Ot 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 UL 07/04/2017 JOEL LEONARD MD Ot 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 07/04/2017 GOLDY HINOJOSA DO Ot J98.11 ATELECTASIS 07/04/2017 GOLDY HINOJOSA DO Ot R91.8 OTHER NONSPECIFIC ABNORMAL FINDING OF [place] 07/04/2017 GOLDY HINOJOSA DO Ot I25.10 ATHSCL HEART DISEASE OF [place] CORONARY 07/04/2017 GOLDY IHNOJOSA DO Ot I51.7 CARDIOMEGALY 07/04/2017 GOLDY HINOJOSA DO Ot 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, 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 07/04/2017 GOLDY HINOJOSA DO Ot K76.89 OTHER SPECIFIED DISEASES OF LIVER 07/04/2017 GOLDY HINOJOSA DO Ot N28.1 CYST OF KIDNEY, ACQUIRED 07/04/2017 GOLDY HINOJOSA DO Ot R91.8 OTHER NONSPECIFIC ABNORMAL FINDING OF [place] 07/04/2017 JOEL LEONARD MD Ot E11.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 MELLITUS WITH FOOT ULCER 07/04/2017 JOEL LEONARD MD Ot 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 UL 07/04/2017 JOEL LEONARD MD Ot 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 07/04/2017 GOLDY HINOJOSA DO Ot E04.2 NONTOXIC MULTINODULAR GOITER 07/04/2017 DELMY ESTRADA WIRELESS SALES REPRESENTATIVE Ot E78.4 OTHER HYPERLIPIDEMIA 07/04/2017 DELMY ESTRADA WIRELESS SALES REPRESENTATIVE Ot I10 ESSENTIAL (PRIMARY) HYPERTENSION 07/04/2017 DELMY ESTRADA WIRELESS SALES REPRESENTATIVE Ot I25.10 ATHSCL HEART DISEASE OF [place] CORONARY 07/04/2017 DELMY ESTRADA WIRELESS SALES REPRESENTATIVE Ot I65.23 OCCLUSION AND STENOSIS OF [place]AL [place] 07/04/2017 DELMY ESTRADA WIRELESS SALES REPRESENTATIVE Ot 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 [place] ARTERIES OF EXTRM W INTRMT 07/04/2017 JOEL LEONARD MD Ot E11.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 MELLITUS WITH FOOT ULCER 07/04/2017 JOLE LEONARD MD Ot 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 UL 07/04/2017 JOEL LEONARD MD Ot 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 07/04/2017 JOEL LEONARD MD Ot E11.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 MELLITUS WITH FOOT ULCER 07/04/2017 JOEL LEONARD MD Ot 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 07/04/2017 JOEL LEONARD MD Ot 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 07/04/2017 JOEL LEONARD MD Ot E11.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 MELLITUS WITH FOOT ULCER 07/04/2017 HORACIO MD, JOEL D Ot 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 UL 07/04/2017 JOEL LEONARD MD Ot 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 07/04/2017 TERESITA MART APRN Ot E11.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 MELLITUS WITH FOOT ULCER 07/04/2017 TERESITA MART APRN Ot 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 UL 07/04/2017 TERESITA MART APRN Ot 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 07/04/2017 JOEL LEONARD MD Ot E11.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 MELLITUS WITH FOOT ULCER 07/04/2017 JOEL LEONARD MD Ot 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 UL 07/04/2017 JOEL LEONARD MD Ot 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 07/04/2017 GOLDY HINOJOSA DO Ot J98.11 ATELECTASIS 07/04/2017 GOLDY HINOJOSA DO Ot R91.8 OTHER NONSPECIFIC ABNORMAL FINDING OF [place] 07/04/2017 GOLDY HINOJOSA DO Ot I25.10 ATHSCL HEART DISEASE OF [place] CORONARY 07/04/2017 GOLDY HINOJOSA DO Ot I51.7 CARDIOMEGALY 07/04/2017 GOLDY HINOJOSA DO Ot 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, 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 07/04/2017 GOLDY HINOJOSA DO Ot K76.89 OTHER SPECIFIED DISEASES OF [place] 07/04/2017 GOLDY HINOJOSA DO Ot N28.1 CYST OF KIDNEY, ACQUIRED 07/04/2017 GOLDY HINOJOSA DO Ot R91.8 OTHER NONSPECIFIC ABNORMAL FINDING OF [place] 07/04/2017 JOEL LEONARD MD Ot E11.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 MELLITUS WITH FOOT ULCER 07/04/2017 JOEL LEONARD MD Ot 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 UL 07/04/2017 JOEL LEONARD MD Ot 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 07/04/2017 GOLDY HINOJOSA DO Ot E04.2 NONTOXIC MULTINODULAR GOITER 07/04/2017 DELMY ESTRADA WIRELESS SALES REPRESENTATIVE Ot E78.4 OTHER HYPERLIPIDEMIA 07/04/2017 DELMY ESTRADA WIRELESS SALES REPRESENTATIVE Ot I10 ESSENTIAL (PRIMARY) HYPERTENSION 07/04/2017 SEAN DELMY Derrick WIRELESS SALES REPRESENTATIVE Ot I25.10 ATHSCL HEART DISEASE OF [place] CORONARY 07/04/2017 DAVIDDELMY MEJIA Derrick WIRELESS SALES REPRESENTATIVE Ot I65.23 OCCLUSION AND STENOSIS OF [place] 07/04/2017 DELMY ESTRADA WIRELESS SALES REPRESENTATIVE Ot 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 [place] ARTERIES OF EXTRM W INTRMT 07/04/2017 JOEL LEONARD MD Ot E11.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 MELLITUS WITH FOOT ULCER 07/04/2017 JOEL LEONARD MD Ot 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 UL 07/04/2017 JOEL LEONARD MD Ot 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 07/04/2017 JOEL LEONARD MD Ot E11.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 MELLITUS WITH FOOT ULCER 07/04/2017 JOEL LEONARD MD Ot 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 UL 07/04/2017 JOEL LEONARD MD Ot 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 07/04/2017 JOEL LEONARD MD Ot E11.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 MELLITUS WITH FOOT ULCER 07/04/2017 JOEL LEONARD MD Ot 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 UL 07/04/2017 JOEL LEONARD MD Ot 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 07/04/2017 TERESITA MART APRN Ot E11.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 MELLITUS WITH FOOT ULCER 07/04/2017 TERESITA MART APRN Ot 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 UL 07/04/2017 TERESITA MART APRN Ot 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 07/04/2017 JOEL LEONARD MD Ot E11.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 MELLITUS WITH FOOT ULCER 07/04/2017 JOEL LEONARD MD Ot 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 UL 07/04/2017 JOEL LEONARD MD Ot 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 07/04/2017 GOLDY HINOJOSA DO Ot J98.11 ATELECTASIS 07/04/2017 GOLDY HINOJOSA DO Ot R91.8 OTHER NONSPECIFIC ABNORMAL FINDING OF [place] 07/04/2017 ASHISH MENDEZ, GOLDY Nowak Ot I25.10 ATHSCL HEART DISEASE OF [place] CORONARY 07/04/2017 ASHISH MENDEZ, GOLDY Nowak Ot I51.7 CARDIOMEGALY 07/04/2017 ASHISH MENDEZ, GOLDY Nowak Ot 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, 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 07/04/2017 ASHISH MENDEZ, GOLDY Nowak Ot K76.89 OTHER SPECIFIED DISEASES OF [place] 07/04/2017 ASHISH MENDEZ, GOLDY Nowak Ot N28.1 CYST OF KIDNEY, ACQUIRED 07/04/2017 ASHISH MENDEZ, GOLDY Nowak Ot R91.8 OTHER NONSPECIFIC ABNORMAL FINDING OF [place] 07/04/2017 JOEL LEONARD MD Ot E11.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 MELLITUS WITH FOOT ULCER 07/04/2017 JOEL LEONARD MD Ot 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 UL 07/04/2017 JOEL LEONARD MD Ot 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 07/04/2017 ASHISH MENDEZ GOLDY Nowak Ot E04.2 NONTOXIC MULTINODULAR GOITER 07/05/2017 JOEL LEONARD MD Ot E11.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 MELLITUS WITH FOOT ULCER 07/05/2017 JOEL LEONARD MD Ot 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 UL 07/05/2017 JOEL LEONARD MD Ot 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 07/09/2017 DELMY ESTRADA WIRELESS SALES REPRESENTATIVE Ot E78.4 OTHER HYPERLIPIDEMIA 07/09/2017 DELMY ESTRADA WIRELESS SALES REPRESENTATIVE Ot I10 ESSENTIAL (PRIMARY) HYPERTENSION 07/09/2017 DELMY ESTRADA WIRELESS SALES REPRESENTATIVE Ot I25.10 ATHSCL HEART DISEASE OF [place] CORONARY 07/09/2017 DELMY ESTRADA WIRELESS SALES REPRESENTATIVE Ot I65.23 OCCLUSION AND STENOSIS OF [place] 07/09/2017 DELMY ESTRADA L WIRELESS SALES REPRESENTATIVE Ot 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 [place] ARTERIES OF EXTRM W INTRMT 07/09/2017 JOEL LEONARD MD, Ot E11.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 MELLITUS WITH FOOT ULCER 07/09/2017 JOEL LEONARD MD Ot 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 UL 07/09/2017 JOEL LEONARD MD Ot 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 07/09/2017 JOEL LEONARD MD Ot E11.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 MELLITUS WITH FOOT ULCER 07/09/2017 JOEL LEONARD MD Ot 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 UL 07/09/2017 JOEL LEONARD MD Ot 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 07/09/2017 JOEL LEONARD MD Ot E11.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 MELLITUS WITH FOOT ULCER 07/09/2017 JOEL LEONARD MD Ot 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 UL 07/09/2017 JOEL LEONARD MD Ot 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 07/09/2017 TERESITA MART APRN Ot E11.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 MELLITUS WITH FOOT ULCER 07/09/2017 TERESITA MART APRN Ot 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 07/09/2017 TERESITA MART APRN Ot 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 07/09/2017 JOEL LEONARD MD Ot E11.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 MELLITUS WITH FOOT ULCER 07/09/2017 JOEL LEONARD MD Ot 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 UL 07/09/2017 JOEL LEONARD MD Ot 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 07/09/2017 GOLDY HINOJOSA DO Ot J98.11 ATELECTASIS 07/09/2017 GOLDY HINOJOSA DO Ot R91.8 OTHER NONSPECIFIC ABNORMAL FINDING OF [place] 07/09/2017 GOLDY HINOJOSA DO Ot I25.10 ATHSCL HEART DISEASE OF [place] CORONARY 07/09/2017 GOLDY HINOJOSA DO Ot I51.7 CARDIOMEGALY 07/09/2017 GOLDY HINOJOSA DO Ot 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, 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 07/09/2017 GOLDY HINOJOSA DO Ot K76.89 OTHER SPECIFIED DISEASES OF [place] 07/09/2017 GOLDY HINOJOSA DO Ot N28.1 CYST OF KIDNEY, ACQUIRED 07/09/2017 GOLDY HINOJOSA DO Ot R91.8 OTHER NONSPECIFIC ABNORMAL FINDING OF [place] 07/09/2017 JOEL LEONARD MD Ot E11.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 MELLITUS WITH FOOT ULCER 07/09/2017 JOEL LEONARD MD Ot 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 UL 07/09/2017 JOEL LEONARD MD Ot 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 07/09/2017 GOLDY HINOJOSA DO Ot E04.2 NONTOXIC MULTINODULAR GOITER 07/09/2017 JOEL LEONARD MD Ot E11.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 MELLITUS WITH FOOT ULCER 07/09/2017 JOEL LEONARD MD Ot 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 UL 07/09/2017 JOEL LEONARD MD Ot 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 07/09/2017 DELMY ESTRADA WIRELESS SALES REPRESENTATIVE Ot E78.4 OTHER HYPERLIPIDEMIA 07/09/2017 DELMY ESTRADA L WIRELESS SALES REPRESENTATIVE Ot I10 ESSENTIAL (PRIMARY) HYPERTENSION 07/09/2017 BAIPHILIP MEJIAHER L WIRELESS SALES REPRESENTATIVE Ot I25.10 ATHSCL HEART DISEASE OF [place] CORONARY 07/09/2017 BAIDELMY MEJIA WIRELESS SALES REPRESENTATIVE Ot I65.23 OCCLUSION AND STENOSIS OF [place] 07/09/2017 DELMY ESTRADA WIRELESS SALES REPRESENTATIVE Ot 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 [place] ARTERIES OF EXTRM W INTRMT 07/09/2017 JOEL LEONARD MD Ot E11.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 MELLITUS WITH FOOT ULCER 07/09/2017 JOEL LEONARD MD Ot 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 UL 07/09/2017 JOEL LEONARD MD Ot 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 07/09/2017 JOEL LEONARD MD Ot E11.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 MELLITUS WITH FOOT ULCER 07/09/2017 JOEL LEONARD MD Ot 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 UL 07/09/2017 JOEL LEONARD MD Ot 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 07/09/2017 JOEL LEONARD MD Ot E11.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 MELLITUS WITH FOOT ULCER 07/09/2017 JOEL LEONARD MD Ot 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 UL 07/09/2017 JOEL LEONARD MD Ot 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 07/09/2017 TERESITA MART APRN Ot E11.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 MELLITUS WITH FOOT ULCER 07/09/2017 TERESITA MART APRN Ot 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 UL 07/09/2017 TERESITA MART APRN Ot 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 07/09/2017 JOEL LEONARD MD Ot E11.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 MELLITUS WITH FOOT ULCER 07/09/2017 JOEL LEONARD MD Ot 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 UL 07/09/2017 JOEL LEONARD MD Ot 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 07/09/2017 ASHISH GOLDY MENDEZ Ot J98.11 ATELECTASIS 07/09/2017 PASCUALЕЛЕНА GOLDY MENDEZ Ot R91.8 OTHER NONSPECIFIC ABNORMAL FINDING OF [place] 07/09/2017 LISANDRACONCHA MENDEZGOLDY Ot I25.10 ATHSCL HEART DISEASE OF [place] CORONARY 07/09/2017 PASCUALЕЛЕНА GOLDY MENDEZ Ot I51.7 CARDIOMEGALY 07/09/2017 LISANDRACONCHA GOLDY MENDEZ Ot 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, 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 07/09/2017 PASCUALЕЛЕНА GOLDY MENDEZ Ot K76.89 OTHER SPECIFIED DISEASES OF [place] 07/09/2017 LISANDRACONCHA GOLDY MENDEZ Ot N28.1 CYST OF KIDNEY, ACQUIRED 07/09/2017 LISANDRACONCHA GOLDY MENDEZ Ot R91.8 OTHER NONSPECIFIC ABNORMAL FINDING OF [place] 07/09/2017 JOEL LEONARD MD Ot E11.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 MELLITUS WITH FOOT ULCER 07/09/2017 JOEL LEONARD MD Ot 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 UL 07/09/2017 JOEL LEONARD MD Ot 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 07/09/2017 GOLDY HINOJOSA DO Ot E04.2 NONTOXIC MULTINODULAR GOITER 07/09/2017 JOEL LEONARD MD Ot E11.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 MELLITUS WITH FOOT ULCER 07/09/2017 JOEL LEONARD MD Ot 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 UL 07/09/2017 JOEL LEONARD MD Ot 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 07/10/2017 GELLENDER DO, GOLDY Nowak Ot D64.9 ANEMIA, UNSPECIFIED 07/10/2017 GELLENDER DO, GOLDY Nowak Ot E11.21 TYPE 2 DIABETES MELLITUS WITH DIABETIC N 07/10/2017 GELLENDER DO, GOLDY Nowak Ot E11.43 TYPE 2 DIABETES W DIABETIC AUTONOMIC (PO 07/10/2017 GELLENDER DO, GOLDY Nowak Ot E11.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 MELLITUS WITH FOOT ULCER 07/10/2017 GELLENDER DO, GOLDY Nowak Ot E78.5 HYPERLIPIDEMIA, UNSPECIFIED 07/10/2017 GELLENDER DO, GOLDY Nowak Ot E87.2 ACIDOSIS 07/10/2017 GELLENDER DO, GOLDY Nowak Ot E87.5 HYPERKALEMIA 07/10/2017 GELLENDER DO, GOLDY Nowak Ot G47.30 SLEEP APNEA, UNSPECIFIED 07/10/2017 GELLENDER DO, GOLDY Nowak Ot I12.9 HYPERTENSIVE CHRONIC KIDNEY DISEASE W ST 07/10/2017 GELLENDER DO, GOLDY Nowak Ot I25.10 ATHSCL HEART DISEASE OF [place] CORONARY 07/10/2017 GELLENDER DO, GOLDY Nowak Ot 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, SECOND DEGREE 07/10/2017 GELLENDER DO, GOLDY Nowak Ot J18.9 PNEUMONIA, UNSPECIFIED ORGANISM 07/10/2017 GELLENDER DO, GOLDY Nowak Ot K21.9 GASTRO-ESOPHAGEAL REFLUX DISEASE WITHOUT 07/10/2017 GELLENDER DO, GOLDY Nowak Ot L97.519 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 07/10/2017 GELLENDER DO, GOLDY Nowak Ot M10.9 GOUT, UNSPECIFIED 07/10/2017 GELLENDER DO, GOLDY Nowak Ot M19.91 PRIMARY OSTEOARTHRITIS, UNSPECIFIED SITE 07/10/2017 GELLENDER DO, GOLDY Nowak Ot M21.371 FOOT DROP, RIGHT FOOT 07/10/2017 GELLENDER DO, GOLDY Nowak Ot M21.372 FOOT DROP, LEFT FOOT 07/10/2017 GELLENDER DO, GOLDY Nowak Ot N17.9 ACUTE KIDNEY FAILURE, UNSPECIFIED 07/10/2017 GELLENDER DO, GOLDY Nowak Ot N18.9 CHRONIC KIDNEY DISEASE, UNSPECIFIED 07/10/2017 GELLENDER DO, GOLDY Nowak Ot N40.1 BENIGN PROSTATIC HYPERPLASIA WITH LOWER 07/10/2017 GELLENDER DO, GOLDY Nowak Ot R25.8 OTHER ABNORMAL INVOLUNTARY MOVEMENTS 07/10/2017 GELLENDER DO, GOLDY Nowak Ot R30.0 DYSURIA 07/10/2017 GELLENDER DO, GOLDY Nowak Ot R33.8 OTHER RETENTION OF URINE 07/10/2017 GELLENDER DO, GOLDY Nowak Ot Z95.5 PRESENCE OF CORONARY ANGIOPLASTY IMPLANT 07/10/2017 GELLENDER DO, GOLDY Nowak Ot D64.9 ANEMIA, UNSPECIFIED 07/10/2017 GELLENDER DO, GOLDY Nowak Ot E11.21 TYPE 2 DIABETES MELLITUS WITH DIABETIC N 07/10/2017 GELLENDER DO, GOLDY Nowak Ot E11.43 TYPE 2 DIABETES W DIABETIC AUTONOMIC (PO 07/10/2017 GELLENDER DO, GOLDY Nowak Ot E11.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 MELLITUS WITH FOOT ULCER 07/10/2017 GELLENDER DO, GOLDY Nowak Ot E78.5 HYPERLIPIDEMIA, UNSPECIFIED 07/10/2017 GELLENDER DO, GOLDY Nowak Ot E87.2 ACIDOSIS 07/10/2017 GELLENDER DO, GOLDY Nowak Ot E87.5 HYPERKALEMIA 07/10/2017 GELLENDER DO, GOLDY Nowak Ot G47.30 SLEEP APNEA, UNSPECIFIED 07/10/2017 GELLENDER DO, GOLDY Nowak Ot I12.9 HYPERTENSIVE CHRONIC KIDNEY DISEASE W ST 07/10/2017 GELLENDER DO, GOLDY Nowak Ot I25.10 ATHSCL HEART DISEASE OF [place] CORONARY 07/10/2017 GELLENDER DO, GOLDY Nowak Ot 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, SECOND DEGREE 07/10/2017 GELLENDER DO, GOLDY Nowak Ot J18.9 PNEUMONIA, UNSPECIFIED ORGANISM 07/10/2017 GELLENDER DO, GOLDY Nowak Ot K21.9 GASTRO-ESOPHAGEAL REFLUX DISEASE WITHOUT 07/10/2017 GELLENDER DO, GOLDY Nowak Ot L97.519 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 07/10/2017 GELLENDER DO, GOLDY Nowak Ot M10.9 GOUT, UNSPECIFIED 07/10/2017 GELLENDER DO, GOLDY Nowak Ot M19.91 PRIMARY OSTEOARTHRITIS, UNSPECIFIED SITE 07/10/2017 GELLENDER DOGOLDY Ot M21.371 FOOT DROP, RIGHT FOOT 07/10/2017 GELLENDER DO, GOLDY Nowak Ot M21.372 FOOT DROP, LEFT FOOT 07/10/2017 GELLENDER DO, GOLDY Nowak Ot N17.9 ACUTE KIDNEY FAILURE, UNSPECIFIED 07/10/2017 GELLENDER DOGOLDY Ot N18.9 CHRONIC KIDNEY DISEASE, UNSPECIFIED 07/10/2017 ASHISH MENDEZ, GOLDY Nowak Ot N40.1 BENIGN PROSTATIC HYPERPLASIA WITH LOWER 07/10/2017 ASHISH MENDEZGOLDY Ot R25.8 OTHER ABNORMAL INVOLUNTARY MOVEMENTS 07/10/2017 ASHISH MENDEZGOLDY Ot R30.0 DYSURIA 07/10/2017 ASHISH MENDEZGOLDY Ot R33.8 OTHER RETENTION OF URINE 07/10/2017 ASHISH MENDEZGOLDY Ot Z95.5 PRESENCE OF CORONARY ANGIOPLASTY IMPLANT 07/15/2017 ASHISH MENDEZGOLDY Ot J98.11 ATELECTASIS 07/15/2017 ASHISH MENDEZ, GOLDY Nowak Ot R91.8 OTHER NONSPECIFIC ABNORMAL FINDING OF [place] 07/17/2017 JOEL LEONARD MD Ot E11.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 MELLITUS WITH FOOT ULCER 07/17/2017 JOEL LEONARD MD Ot 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 UL 07/17/2017 JOEL LEONARD MD Ot 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 07/18/2017 ASHISH MENDEZGOLDY Ot I25.10 ATHSCL HEART DISEASE OF [place] CORONARY 07/18/2017 ASHISH MENDEZGOLDY Ot I51.7 CARDIOMEGALY 07/18/2017 ASHISH MENDEZGOLDY Ot 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, 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 07/18/2017 ASHISH MENDEZ, GOLDY [place] Ot K76.89 OTHER SPECIFIED DISEASES OF LIVER 07/18/2017 ASHISH MENDEZGOLDY Ot N28.1 CYST OF KIDNEY, ACQUIRED 07/18/2017 ASHISH MENDEZGOLDY Ot R91.8 OTHER NONSPECIFIC ABNORMAL FINDING OF [place] 07/19/2017 ASHISH MENDEZGOLDY Ot D64.9 ANEMIA, UNSPECIFIED 07/19/2017 ASHISH MENDEZGOLDY Ot E11.21 TYPE 2 DIABETES MELLITUS WITH DIABETIC N 07/19/2017 ASHISH MENDEZGOLDY Ot E11.43 TYPE 2 DIABETES W DIABETIC AUTONOMIC (PO 07/19/2017 ASHISH MENDEZGOLDY Ot E11.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 MELLITUS WITH FOOT ULCER 07/19/2017 ASHISH MENDEZGOLDY Ot E78.5 HYPERLIPIDEMIA, UNSPECIFIED 07/19/2017 PASCUALDER GOLDY Ot E87.2 ACIDOSIS 07/19/2017 GELLENDER DO, GOLDY [place] Ot E87.5 HYPERKALEMIA 07/19/2017 GELLENDER DO, GOLDY [place] Ot G47.30 SLEEP APNEA, UNSPECIFIED 07/19/2017 GELLENDER DO, GOLDY [place] Ot I12.9 HYPERTENSIVE CHRONIC KIDNEY DISEASE W ST 07/19/2017 GELLENDER DO, GOLDY [place] Ot I25.10 ATHSCL HEART DISEASE OF [place] CORONARY 07/19/2017 GELLENDER DO, GOLDY [place] Ot 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, SECOND DEGREE 07/19/2017 GELLENDER DO, GOLDY [place] Ot J18.9 PNEUMONIA, UNSPECIFIED ORGANISM 07/19/2017 GELLENDER DO, GOLDY [place] Ot K21.9 GASTRO-ESOPHAGEAL REFLUX DISEASE WITHOUT 07/19/2017 GELLENDER DO, GOLDY [place] Ot L97.519 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 07/19/2017 GELLENDER DO, GOLDY [place] Ot M10.9 GOUT, UNSPECIFIED 07/19/2017 GELLENDER DO, GOLDY [place] Ot M19.91 PRIMARY OSTEOARTHRITIS, UNSPECIFIED SITE 07/19/2017 GELLENDER DO, GOLDY [place] Ot M21.371 FOOT DROP, RIGHT FOOT 07/19/2017 GELLENDER DO, GOLDY [place] Ot M21.372 FOOT DROP, LEFT FOOT 07/19/2017 GELLENDER DO, GOLDY [place] Ot N17.9 ACUTE KIDNEY FAILURE, UNSPECIFIED 07/19/2017 GELLENDER DO, GOLDY [place] Ot N18.9 CHRONIC KIDNEY DISEASE, UNSPECIFIED 07/19/2017 GELLENDER DO, GOLDY [place] Ot N40.1 BENIGN PROSTATIC HYPERPLASIA WITH LOWER 07/19/2017 GELLENDER DO, GOLDY [place] Ot R25.8 OTHER ABNORMAL INVOLUNTARY MOVEMENTS 07/19/2017 GELLENDER DO, GOLDY [place] Ot R30.0 DYSURIA 07/19/2017 GELLENDER DO, GOLDY [place] Ot R33.8 OTHER RETENTION OF URINE 07/19/2017 GELLENDER DO, GOLDY [place] Ot Z95.5 PRESENCE OF CORONARY ANGIOPLASTY IMPLANT 07/19/2017 GELLENDER DO, GOLDY [place] Ot D64.9 ANEMIA, UNSPECIFIED 07/19/2017 GELLENDER DO, GOLDY [place] Ot E11.21 TYPE 2 DIABETES MELLITUS WITH DIABETIC N 07/19/2017 GELLENDER DO, GOLDY [place] Ot E11.43 TYPE 2 DIABETES W DIABETIC AUTONOMIC (PO 07/19/2017 GELLENDER DO, GOLDY [place] Ot E11.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 MELLITUS WITH FOOT ULCER 07/19/2017 GELLENDER DO, GOLDY [place] Ot E78.5 HYPERLIPIDEMIA, UNSPECIFIED 07/19/2017 GELLENDER DO, GOLDY [place] Ot E87.2 ACIDOSIS 07/19/2017 GELLENDER DO, GOLDY [place] Ot E87.5 HYPERKALEMIA 07/19/2017 GELLENDER DO, GOLDY [place] Ot G47.30 SLEEP APNEA, UNSPECIFIED 07/19/2017 GELLENDER DO, GOLDY [place] Ot I12.9 HYPERTENSIVE CHRONIC KIDNEY DISEASE W ST 07/19/2017 GELLENDER DO, GOLDY [place] Ot I25.10 ATHSCL HEART DISEASE OF [place] CORONARY 07/19/2017 GELLENDER DO, GOLDY [place] Ot 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, SECOND DEGREE 07/19/2017 GELLENDER DO, GOLDY [place] Ot J18.9 PNEUMONIA, UNSPECIFIED ORGANISM 07/19/2017 GELLENDER DO, GOLDY [place] Ot K21.9 GASTRO-ESOPHAGEAL REFLUX DISEASE WITHOUT 07/19/2017 GELLENDER DO, GOLDY [place] Ot L97.519 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 07/19/2017 GELLENDER DO, GOLDY [place] Ot M10.9 GOUT, UNSPECIFIED 07/19/2017 GELLENDER DO, GOLDY [place] Ot M19.91 PRIMARY OSTEOARTHRITIS, UNSPECIFIED SITE 07/19/2017 GELLENDER DO, GOLDY [place] Ot M21.371 FOOT DROP, RIGHT FOOT 07/19/2017 GELLENDER DO, GOLDY [place] Ot M21.372 FOOT DROP, LEFT FOOT 07/19/2017 GELLENDER DO, GOLDY [place] Ot N17.9 ACUTE KIDNEY FAILURE, UNSPECIFIED 07/19/2017 GELLENDER DO, GOLDY [place] Ot N18.9 CHRONIC KIDNEY DISEASE, UNSPECIFIED 07/19/2017 GELLENDER DO, GOLDY [place] Ot N40.1 BENIGN PROSTATIC HYPERPLASIA WITH LOWER 07/19/2017 GELLENDER DO, GOLDY [place] Ot R25.8 OTHER ABNORMAL INVOLUNTARY MOVEMENTS 07/19/2017 GELLENDER DO, GOLDY [place] Ot R30.0 DYSURIA 07/19/2017 GELLENDER DO, GOLDY [place] Ot R33.8 OTHER RETENTION OF URINE 07/19/2017 GELLENDER DO, GOLDY [place] Ot Z95.5 PRESENCE OF CORONARY ANGIOPLASTY IMPLANT 07/23/2017 GELLENDER DO, GOLDY [place] Ot E04.2 NONTOXIC MULTINODULAR GOITER 07/24/2017 JOEL LEONARD MD Ot E11.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 MELLITUS WITH FOOT ULCER 07/24/2017 JOEL LEONARD MD Ot 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 UL 07/24/2017 JOEL LEONARD MD Ot 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 07/30/2017 JOEL LEONARD MD Ot E11.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 MELLITUS WITH FOOT ULCER 07/30/2017 JOEL LEONARD MD Ot 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 UL 07/30/2017 JOEL LEONARD MD, Ot 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 08/22/2017 GELCONCHA DOGOLDY Ot J98.11 ATELECTASIS 08/22/2017 GOLDY HINOJOSA DO Ot R91.8 OTHER NONSPECIFIC ABNORMAL FINDING OF [place] 08/22/2017 GOLDY HINOJOSA DO Ot E04.2 NONTOXIC MULTINODULAR GOITER 08/22/2017 JOEL LEONARD MD Ot E11.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 MELLITUS WITH FOOT ULCER 08/22/2017 JOEL LEONARD MD Ot 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 UL 08/22/2017 JOEL LEONARD MD Ot 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30 SLEEP APNEA, UNSPECIFIED 09/19/2017 OWEN TELLEZ, SHARON J Ot I10 ESSENTIAL (PRIMARY) HYPERTENSION 09/19/2017 SHARON WEAVER MD Ot I25.10 ATHSCL HEART DISEASE OF [place] CORONARY 09/19/2017 SHARON WEAVER MD Ot I44.0 ATRIOVENTRICULAR BLOCK, FIRST DEGREE 09/19/2017 SHARON WEAVER MD Ot K21.9 GASTRO-ESOPHAGEAL REFLUX DISEASE WITHOUT 09/19/2017 SHARON WEAVER MD Ot M10.9 GOUT, UNSPECIFIED 09/19/2017 SHARON WEAVER MD Ot M25.571 PAIN IN RIGHT ANKLE AND JOINTS OF RIGHT 09/19/2017 SHARON WEAVER MD Ot R33.9 RETENTION OF URINE, UNSPECIFIED 09/19/2017 SHARON WEAVER MD Ot R40.2142 COMA SCALE, EYES OPEN, SPONTANEOUS, EMR 09/19/2017 SHARON WEAVER MD Ot R40.2252 COMA SCALE, BEST VERBAL RESPONSE, ORIENT 09/19/2017 SHARON WEAVER MD Ot R40.2362 COMA SCALE, BEST MOTOR RESPONSE, OBEYS C 09/19/2017 SHARON WEAVER MD Ot S93.401A SPRAIN OF UNSPECIFIED LIGAMENT OF RIGHT 09/19/2017 SHARON WEAVER MD Ot X50.1XXA OVEREXERTION FROM PROLONGED STATIC OR AW 09/19/2017 SHARON WEAVER MD Ot Z79.82 MILL TENDER WASHING (CURRENT) USE OF ASPIRIN 09/19/2017 SHARON WEAVER MD Ot Z87.442 PERSONAL HISTORY OF URINARY CALCULI 09/19/2017 SHARON WEAVER MD Ot Z88.8 ALLERGY STATUS TO [facility] DRUG/MEDS/BIOL SUB 09/19/2017 SHARON WEAVER MD Ot Z90.49 ACQUIRED ABSENCE OF OTHER SPECIFIED PART 09/19/2017 SHARON WEAVER MD Ot Z90.89 ACQUIRED ABSENCE OF OTHER ORGANS 09/19/2017 SHARON WEAVER MD Ot Z96.7 PRESENCE OF OTHER BONE AND TENDON IMPLAN 10/22/2017 JOEL LEONARD MD Ot E11.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 MELLITUS WITH FOOT ULCER 10/22/2017 JOEL LEONARD MD Ot 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 UL 10/22/2017 JOEL LEONARD MD Ot L97.512 NON-PRS CHRONIC ULCER OT PRT RIGHT FOOT 10/22/2017 JOEL LEONARD MD, Ot E11.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 MELLITUS WITH FOOT ULCER 10/22/2017 JOEL LEONARD MD, Ot 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 UL 10/22/2017 JOEL LEONARD MD, Ot 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 11/13/2017 JOEL LEONARD MD, Ot E11.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 MELLITUS WITH FOOT ULCER 11/13/2017 JOEL LEONARD MD, Ot 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 UL 11/13/2017 JOEL LEONARD MD, Ot 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 Procedures Code Description Performed By Performed On 86.05/21/2012 86.05/23/2012 Results Test Result Range Comprehensive metabolic panel [...] Serum or plasma aspartate aminotransferase measurement (enzymatic activity/volume) 15 U/L 5-34 Serum or plasma alanine aminotransferase measurement (enzymatic activity/volume) 24 U/L 0-55 Serum or plasma protein measurement (mass/volume) 7.0 g/dL 6.4-8.2 Serum or plasma albumin measurement (mass/volume) 3.8 g/dL 3.2-4.5 Lipid 1996 panel - 01/01/17 09:32 Serum or plasma triglyceride measurement (mass/volume) 129 mg/dL <150 Serum or plasma cholesterol measurement (mass/volume) 120 mg/dL < 200 Serum or plasma cholesterol in HDL measurement (mass/volume) 34 mg/dL 40-60 Cholesterol in LDL [mass/volume] in serum or plasma by direct assay 67 mg/dL 1-129 Serum or plasma cholesterol in VLDL measurement (mass/volume) 26 mg/dL 5-40 PT panel in platelet poor plasma [...] Automated erythrocyte mean corpuscular hemoglobin concentration measurement (mass/volume) 33 g/dL 32-36 Automated erythrocyte distribution width ratio 13.9 % 10.0- 14.5 Automated blood platelet count (count/volume) 208 10*3/uL 130-400 Automated blood platelet mean volume measurement 11.0 [foz_us] 7.4-10.4 Methicillin resistant Staphylococcus aureus (MRSA) screening culture - 01/01/17 09:32 Methicillin resistant Staphylococcus aureus (MRSA) screening [...] Automated erythrocyte mean corpuscular hemoglobin concentration measurement (mass/volume) 33 g/dL 32-36 Automated erythrocyte distribution width ratio 13.9 % 10.0- 14.5 Automated blood platelet count (count/volume) 176 10*3/uL [...] Blood monocytes automated count (number/volume) 0.6 10*3 0.0- 1.0 Automated eosinophil count 0.2 10*3/uL 0.0-0.3 Automated [...] Automated erythrocyte mean corpuscular hemoglobin concentration measurement (mass/volume) 33 g/dL 32-36 Automated erythrocyte distribution width ratio 14.5 % 10.0- 14.5 Automated blood platelet count (count/volume) 204 10*3/uL [...] Blood monocytes automated count (number/volume) 0.7 10*3 0.0- 1.0 Automated eosinophil count 0.3 10*3/uL 0.0-0.3 Automated blood basophil count (count/volume) 0.1 10*3/uL 0.0-0.1 Erythrocyte sedimentation rate by westergren method - 05/23/17 12:48 Erythrocyte sedimentation rate by westergren method 36 mm 0-30 Complete urinalysis with reflex to culture - 06/12/17 12:30 Urine color determination YELLOW NRG Urine clarity determination SLIGHTLY CLOUDY NRG Urine pH measurement by test strip 5 5-9 Specific gravity of urine by test strip 1.015 1.016-1.022 Urine protein assay by test strip, semi-quantitative NEGATIVE NEGATIVE Urine glucose detection by automated test strip NEGATIVE NEGATIVE Erythrocytes detection in urine sediment by light microscopy NEGATIVE NEGATIVE Urine ketones detection by automated test strip NEGATIVE NEGATIVE Urine nitrite detection by test strip NEGATIVE NEGATIVE Urine total bilirubin detection by test strip NEGATIVE NEGATIVE Urine urobilinogen measurement by automated test strip (mass/volume) NORMAL NORMAL Urine leukocyte esterase detection by dipstick 2+ NEGATIVE Automated urine sediment erythrocyte count by microscopy (number/high power field) NONE NRG Automated urine sediment leukocyte count by microscopy (number/high power field) [HPF] NRG Bacteria detection in urine sediment by light microscopy TRACE NRG Squamous epithelial cells detection in urine sediment by light microscopy 2-5 NRG Crystals detection in urine sediment by light microscopy NONE NRG Casts detection in urine sediment by light microscopy NONE NRG Mucus detection in urine sediment by light microscopy SMALL NRG Complete urinalysis with reflex to culture YES NRG Bacterial urine culture - 06/12/17 12:30 URINE CULTURE RESULTS <10,000/ML NRG Complete blood count (CBC) with automated white blood cell (WBC) differential - 06/12/17 13:16 Blood leukocytes automated count (number/volume) 7.2 10*3/uL 4.3-11.0 Blood erythrocytes automated count (number/volume) 3.90 10*6/uL 4.35-5.85 Venous blood hemoglobin measurement (mass/volume) 12.0 g/dL 13.3-17.7 Blood hematocrit (volume fraction) 37 % 40-54 Automated erythrocyte mean corpuscular volume 95 [foz_us] 80-99 Automated erythrocyte mean corpuscular hemoglobin (mass per erythrocyte) 31 pg 25-34 Automated erythrocyte mean corpuscular hemoglobin concentration measurement (mass/volume) 32 g/dL 32-36 Automated erythrocyte distribution width ratio 14.6 % 10.0- 14.5 Automated blood platelet count (count/volume) 170 10*3/uL 130-400 Automated blood platelet mean volume measurement 10.9 [foz_us] 7.4-10.4 Automated blood neutrophils/100 leukocytes 60 % 42-75 Automated blood lymphocytes/100 leukocytes 26 % 12-44 Blood monocytes/100 leukocytes 9 % 0-12 Automated blood eosinophils/100 leukocytes 5 % 0-10 Automated blood basophils/100 leukocytes 1 % 0-10 Blood neutrophils automated count (number/volume) 4.3 10*3 1.8-7.8 Blood lymphocytes automated count (number/volume) 1.9 10*3 1.0-4.0 Blood monocytes automated count (number/volume) 0.6 10*3 0.0- 1.0 Automated eosinophil count 0.3 10*3/uL 0.0-0.3 Automated blood basophil count (count/volume) 0.1 10*3/uL 0.0-0.1 Comprehensive metabolic panel - 06/12/17 13:16 Serum or plasma sodium measurement (moles/volume) 137 mmol/L 135-145 Serum or plasma potassium measurement (moles/volume) 4.5 mmol/L 3.6-5.0 Serum or plasma chloride measurement (moles/volume) 108 mmol/L 98-107 Carbon dioxide 23 mmol/L 21-32 Serum or plasma anion gap determination (moles/volume) 6 mmol/L 5-14 Serum or plasma urea nitrogen measurement (mass/volume) 37 mg/dL 7-18 Serum or plasma creatinine measurement (mass/volume) 1.42 mg/dL 0.60-1.30 Serum or plasma urea nitrogen/creatinine mass ratio 26 NRG Serum or plasma creatinine measurement with calculation of estimated glomerular filtration rate 47 NRG Serum or plasma glucose measurement (mass/volume) 132 mg/dL 70-105 Serum or plasma calcium measurement (mass/volume) 8.8 mg/dL 8.5-10.1 Serum or plasma total bilirubin measurement (mass/volume) 1.0 mg/dL 0.1-1.0 Serum or plasma alkaline phosphatase measurement (enzymatic activity/volume) 79 U/L 40-136 Serum or plasma aspartate aminotransferase measurement (enzymatic activity/volume) 19 U/L 5-34 Serum or plasma alanine aminotransferase measurement (enzymatic activity/volume) 24 U/L 0-55 Serum or plasma protein measurement (mass/volume) 6.4 g/dL 6.4-8.2 Serum or plasma albumin measurement (mass/volume) 3.6 g/dL 3.2-4.5 Magnesium - 06/12/17 13:16 Magnesium 2.0 mg/dL 1.8-2.4 Serum or plasma C reactive protein measurement (mass/volume) - 06/12/17 13:16 Serum or plasma C reactive protein measurement (mass/volume) 0.15 mg/dL 0.00-0.50 Complete blood count (CBC) with automated white blood cell (WBC) differential - 07/09/17 02:14 Blood leukocytes automated count (number/volume) 7.5 10*3/uL 4.3-11.0 Blood erythrocytes automated count (number/volume) 3.67 10*6/uL 4.35-5.85 Venous blood hemoglobin measurement (mass/volume) 11.3 g/dL 13.3-17.7 Blood hematocrit (volume fraction) 34 % 40-54 Automated erythrocyte mean corpuscular volume 92 [foz_us] 80-99 Automated erythrocyte mean corpuscular hemoglobin (mass per erythrocyte) 31 pg 25-34 Automated erythrocyte mean corpuscular hemoglobin concentration measurement (mass/volume) 33 g/dL 32-36 Automated erythrocyte distribution width ratio 14.4 % 10.0- 14.5 Automated blood platelet count (count/volume) 165 10*3/uL 130-400 Automated blood platelet mean volume measurement 10.7 [foz_us] 7.4-10.4 Automated blood neutrophils/100 leukocytes 68 % 42-75 Automated blood lymphocytes/100 leukocytes 19 % 12-44 Blood monocytes/100 leukocytes 9 % 0-12 Automated blood eosinophils/100 leukocytes 3 % 0-10 Automated blood basophils/100 leukocytes 1 % 0-10 Blood neutrophils automated count (number/volume) 5.1 10*3 1.8-7.8 Blood lymphocytes automated count (number/volume) 1.4 10*3 1.0-4.0 Blood monocytes automated count (number/volume) 0.7 10*3 0.0- 1.0 Automated eosinophil count 0.2 10*3/uL 0.0-0.3 Automated blood basophil count (count/volume) 0.0 10*3/uL 0.0-0.1 Comprehensive metabolic panel - 07/09/17 02:14 Serum or plasma sodium measurement (moles/volume) 133 mmol/L 135-145 Serum or plasma potassium measurement (moles/volume) 4.8 mmol/L 3.6-5.0 Serum or plasma chloride measurement (moles/volume) 108 mmol/L 98-107 Carbon dioxide 17 mmol/L 21-32 Serum or plasma anion gap determination (moles/volume) 8 mmol/L 5-14 Serum or plasma urea nitrogen measurement (mass/volume) 44 mg/dL 7-18 Serum or plasma creatinine measurement (mass/volume) 1.83 mg/dL 0.60-1.30 Serum or plasma urea nitrogen/creatinine mass ratio 24 NRG Serum or plasma creatinine measurement with calculation of estimated glomerular filtration rate 35 NRG Serum or plasma glucose measurement (mass/volume) 91 mg/dL 70-105 Serum or plasma calcium measurement (mass/volume) 8.5 mg/dL 8.5-10.1 Serum or plasma total bilirubin measurement (mass/volume) 0.6 mg/dL 0.1-1.0 Serum or plasma alkaline phosphatase measurement (enzymatic activity/volume) 78 U/L 40-136 Serum or plasma aspartate aminotransferase measurement (enzymatic activity/volume) 14 U/L 5-34 Serum or plasma alanine aminotransferase measurement (enzymatic activity/volume) 20 U/L 0-55 Serum or plasma protein measurement (mass/volume) 6.0 g/dL 6.4-8.2 Serum or plasma albumin measurement (mass/volume) 3.4 g/dL 3.2-4.5 Serum or plasma phosphate measurement (mass/volume) - 07/09/17 02:14 Serum or plasma phosphate measurement (mass/volume) 3.8 mg/dL 2.3-4.7 Magnesium - 07/09/17 02:14 Magnesium 1.9 mg/dL 1.8-2.4 Serum or plasma troponin i.cardiac measurement (mass/volume) - 07/09/17 02:14 Serum or plasma troponin i.cardiac measurement (mass/volume) < ng/mL <0.30 THYROID STIMULATING HORMONE - 07/09/17 02:14 THYROID STIMULATING HORMONE 3.03 u[iU]/mL 0.35-4.94 Complete urinalysis with reflex to culture - 07/09/17 02:53 Urine color determination YELLOW NRG Urine clarity determination CLEAR NRG Urine pH measurement by test strip 6 5-9 Specific gravity of urine by test strip 1.005 1.016-1.022 Urine protein assay by test strip, semi-quantitative NEGATIVE NEGATIVE Urine glucose detection by automated test strip NEGATIVE NEGATIVE Erythrocytes detection in urine sediment by light microscopy NEGATIVE NEGATIVE Urine ketones detection by automated test strip NEGATIVE NEGATIVE Urine nitrite detection by test strip NEGATIVE NEGATIVE Urine total bilirubin detection by test strip NEGATIVE NEGATIVE Urine urobilinogen measurement by automated test strip (mass/volume) NORMAL NORMAL Urine leukocyte esterase detection by dipstick NEGATIVE NEGATIVE Automated urine sediment erythrocyte count by microscopy (number/high power field) NONE NRG Automated urine sediment leukocyte count by microscopy (number/high power field) NONE NRG Bacteria detection in urine sediment by light microscopy NEGATIVE NRG Squamous epithelial cells detection in urine sediment by light microscopy NONE NRG Crystals detection in urine sediment by light microscopy NONE NRG Casts detection in urine sediment by light microscopy NONE NRG Mucus detection in urine sediment by light microscopy NEGATIVE NRG Complete urinalysis with reflex to culture NO NRG Capillary blood glucose measurement by glucometer (mass/volume) - 07/09/17 05:35 Capillary blood glucose measurement by glucometer (mass/volume) 86 mg/dL 70-110 Capillary blood glucose measurement by glucometer (mass/volume) - 07/09/17 11:22 Capillary blood glucose measurement by glucometer (mass/volume) 148 mg/dL 70-110 Capillary blood glucose measurement by glucometer (mass/volume) - 07/09/17 16:11 Capillary blood glucose measurement by glucometer (mass/volume) 156 mg/dL 70-110 Capillary blood glucose measurement by glucometer (mass/volume) - 07/09/17 20:28 Capillary blood glucose measurement by glucometer (mass/volume) 156 mg/dL 70-110 Capillary blood glucose measurement by glucometer (mass/volume) - 07/10/17 05:31 Capillary blood glucose measurement by glucometer (mass/volume) 81 mg/dL 70-110 Automated blood complete blood count (hemogram) panel - 07/10/17 05:36 Blood leukocytes automated count (number/volume) 7.2 10*3/uL 4.3-11.0 Blood erythrocytes automated count (number/volume) 3.71 10*6/uL 4.35-5.85 Venous blood hemoglobin measurement (mass/volume) 11.2 g/dL 13.3-17.7 Blood hematocrit (volume fraction) 35 % 40-54 Automated erythrocyte mean corpuscular volume 94 [foz_us] 80-99 Automated erythrocyte mean corpuscular hemoglobin (mass per erythrocyte) 30 pg 25-34 Automated erythrocyte mean corpuscular hemoglobin concentration measurement (mass/volume) 32 g/dL 32-36 Automated erythrocyte distribution width ratio 15.0 % 10.0- 14.5 Automated blood platelet count (count/volume) 166 10*3/uL 130-400 Automated blood platelet mean volume measurement 11.1 [foz_us] 7.4-10.4 Comprehensive metabolic panel - 07/10/17 05:36 Serum or plasma sodium measurement (moles/volume) 138 mmol/L 135-145 Serum or plasma potassium measurement (moles/volume) 5.9 mmol/L 3.6-5.0 Serum or plasma chloride measurement (moles/volume) 116 mmol/L 98-107 Carbon dioxide 16 mmol/L 21-32 Serum or plasma anion gap determination (moles/volume) 6 mmol/L 5-14 Serum or plasma urea nitrogen measurement (mass/volume) 46 mg/dL 7-18 Serum or plasma creatinine measurement (mass/volume) 1.85 mg/dL 0.60-1.30 Serum or plasma urea nitrogen/creatinine mass ratio 25 NRG Serum or plasma creatinine measurement with calculation of estimated glomerular filtration rate 35 NRG Serum or plasma glucose measurement (mass/volume) 75 mg/dL 70-105 Serum or plasma calcium measurement (mass/volume) 8.5 mg/dL 8.5-10.1 Serum or plasma total bilirubin measurement (mass/volume) 0.6 mg/dL 0.1-1.0 Serum or plasma alkaline phosphatase measurement (enzymatic activity/volume) 71 U/L 40-136 Serum or plasma aspartate aminotransferase measurement (enzymatic activity/volume) 16 U/L 5-34 Serum or plasma alanine aminotransferase measurement (enzymatic activity/volume) 22 U/L 0-55 Serum or plasma protein measurement (mass/volume) 5.9 g/dL 6.4-8.2 Serum or plasma albumin measurement (mass/volume) 3.4 g/dL 3.2-4.5 Magnesium - 07/10/17 05:36 Magnesium 2.0 mg/dL 1.8-2.4 Whole blood basic metabolic panel - 07/10/17 08:37 Serum or plasma sodium measurement (moles/volume) 138 mmol/L 135-145 Serum or plasma potassium measurement (moles/volume) 6.1 mmol/L 3.6-5.0 Serum or plasma chloride measurement (moles/volume) 115 mmol/L 98-107 Carbon dioxide 17 mmol/L 21-32 Serum or plasma anion gap determination (moles/volume) 6 mmol/L 5-14 Serum or plasma urea nitrogen measurement (mass/volume) 46 mg/dL 7-18 Serum or plasma creatinine measurement (mass/volume) 1.79 mg/dL 0.60-1.30 Serum or plasma urea nitrogen/creatinine mass ratio 26 NRG Serum or plasma creatinine measurement with calculation of estimated glomerular filtration rate 36 NRG Serum or plasma glucose measurement (mass/volume) 80 mg/dL 70-105 Serum or plasma calcium measurement (mass/volume) 8.6 mg/dL 8.5-10.1 Capillary blood glucose measurement by glucometer (mass/volume) - 07/10/17 10:46 Capillary blood glucose measurement by glucometer (mass/volume) 85 mg/dL 70-110 Complete blood count (CBC) with automated white blood cell (WBC) differential - 08/21/18 07:50 Blood leukocytes automated count (number/volume) 6.7 10*3/uL 4.3-11.0 Blood erythrocytes automated count (number/volume) 4.01 10*6/uL 4.35-5.85 Venous blood hemoglobin measurement (mass/volume) 12.4 g/dL 13.3-17.7 Blood hematocrit (volume fraction) 36 % 40-54 Automated erythrocyte mean corpuscular volume 90 [foz_us] 80-99 Automated erythrocyte mean corpuscular hemoglobin (mass per erythrocyte) 31 pg 25-34 Automated erythrocyte mean corpuscular hemoglobin concentration measurement (mass/volume) 34 g/dL 32-36 Automated erythrocyte distribution width ratio 14.9 % 10.0- 14.5 Automated blood platelet count (count/volume) 220 10*3/uL 130-400 Automated blood platelet mean volume measurement 9.8 [foz_us] 7.4-10.4 Automated blood neutrophils/100 leukocytes 56 % 42-75 Automated blood lymphocytes/100 leukocytes 32 % 12-44 Blood monocytes/100 leukocytes 8 % 0-12 Automated blood eosinophils/100 leukocytes 3 % 0-10 Automated blood basophils/100 leukocytes 1 % 0-10 Blood neutrophils automated count (number/volume) 3.8 10*3 1.8-7.8 Blood lymphocytes automated count (number/volume) 2.2 10*3 1.0-4.0 Blood monocytes automated count (number/volume) 0.6 10*3 0.0- 1.0 Automated eosinophil count 0.2 10*3/uL 0.0-0.3 Automated blood basophil count (count/volume) 0.1 10*3/uL 0.0-0.1 Encounters ACCT No. Visit Date/Time Discharge Status Pt. Type Provider Facility Loc./Unit Complaint [id number] 09/19/2017 20:21:00 09/19/2017 22:24:00 DIS Emergency SHARON WEAVER MD [facility] ER FALL/R FOOT INJ [id number] 07/10/2017 10:00:00 07/10/2017 12:48:00 DIS Outpatient GOLDY HINOJOSA DO [facility] 4TH URINE RETENTION,VAGAL TIC,2ND DEGREE AV BLOCK [id number] 07/04/2017 10:27:00 07/04/2017 23:59:59 CLS Outpatient JOEL LEONARD MD [facility] WOUNDCARE [id number] 07/01/2017 15:12:00 07/01/2017 23:59:59 CLS Outpatient GOLDY HINOJOSA DO [facility] RAD LT THYROID NODULE ON CT SCAN [id number] 06/27/2017 10:25:00 06/27/2017 23:59:59 CLS Outpatient JOEL LEONARD [facility] [id number] 06/27/2017 10:22:00 06/27/2017 23:59:59 CLS Outpatient GOLDY HINOJOSA DO [facility] RAD DENSITY LT PERIHILAR REGION [id number] 06/20/2017 10:25:00 06/20/2017 23:59:59 CLS Outpatient JOEL LEONARD MD [facility] [id number] 06/20/2017 10:21:00 06/20/2017 23:59:59 CLS Outpatient GOLDY HINOJOSA DO [facility] RAD INCREASED DENSITY LEFT HILUM [id number] 06/13/2017 10:10:00 06/13/2017 23:59:59 CLS Outpatient TERESITA MART APRN [facility] WOUNDCARE [id number] 06/12/2017 11:32:00 06/12/2017 16:44:00 DIS Emergency ARIEL TELLEZ, SOLO [place] [facility] ER JERKY FEELING IN NECK CANNOT HOLD OBJECT [id number] 05/30/2017 10:50:00 05/30/2017 23:59:59 CLS Outpatient JOEL LEONARD MD [facility] WOUNDCARE [id number] 05/23/2017 12:36:00 05/23/2017 23:59:59 CLS Outpatient JOEL LEONARD MD [facility] LAB E11.621,I.97.512,I70.235 [id number] 05/23/2017 11:11:00 05/23/2017 23:59:59 CLS Outpatient JOEL LEONARD MD [facility] WOUNDCARE [id number] 01/22/2017 12:09:00 01/22/2017 23:59:59 CLS Outpatient DELMY ESTRADA [facility] RAD PAD I70.213 [id number] 01/01/2017 09:00:00 01/02/2017 10:50:00 DIS Outpatient CHANTALE TELLEZ FACC, DEEJAY GRIDER CCDS [facility] CATH CHEST PAIN,CAD [id number] 11/08/2015 07:19:00 11/08/2015 23:59:59 CLS Outpatient DELMY ESTRADA [facility] CARD CAD; CAROTID ARTERY DISEASE [id number] 11/24/2014 12:16:00 11/24/2014 23:59:59 CLS Outpatient GOLDY HINOJOSA DO [facility] RAD FEET COLD AND BLUE NO PULSE [id number] 04/06/2014 10:41:00 04/06/2014 23:59:59 CLS Outpatient GOLDY HINOJOSA DO [facility] RAD TRAUMA TO L FIRST TOE [id number] 11/30/2013 16:29:00 11/30/2013 23:59:59 CLS Outpatient GOLDY HINOJOSA DO [facility] RAD KICKED WALL PAIN IN TOES [id number] 08/27/2013 06:51:00 08/27/2013 23:59:59 CLS Outpatient DELMY ESTRADA Derrick MANRIQUEZ [facility] CARD CHEST PAIN [id number] 08/27/2018 11:00:00 PEN Preadmit WALKER LOMELI MD [facility] ENDO HX POLYPS/DIARRHEA [id number] 08/21/2018 07:26:00 ACT Emergency SHARON WEAVER MD [facility] ER DEHYDRATION [id number] 08/21/2018 05:48:00 ACT Outpatient WALKER LOMELI MD [facility] PREOP COLONOSCOPY [id number] 11/24/2014 12:25:00 Document Registration [id number] 05/20/2012 11:30:00 Document Registration [id number] 04/30/2012 12:40:00 Document Registration [id number] 04/28/2012 14:46:00 Document Registration [id number] 08/16/2010 11:01:00 Document Registration [id number] 05/19/2010 05:45:00 Document Registration [id number] 03/16/2010 11:02:00 Document Registration [id number] 11/25/2009 08:46:00 Document Registration [id number] 09/14/2009 09:48:00 Document Registration [id number] 09/06/2009 19:11:00 Document Registration [id number] 08/09/2009 08:19:00 Document Registration [id number] 08/08/2009 08:47:00 Document Registration [id number] 08/04/2009 07:50:00 Document Registration [id number] 08/03/2009 12:48:00 Document Registration [id number] 11/24/2014 12:17:00 ACT Document Registration [id number] 07/19/2017 11:31:22 07/19/2017 23:59:59 CLS Outpatient
[2018-08-21] MEDS ORDERED: GABA-486 PO (12:56)
[2018-08-21] MEDS ORDERED: TAMS0.4C98 PO (12:56)
[2018-08-21] MEDS ORDERED: PRAV40TA2 PO (12:56)
[2018-08-21] MEDS ORDERED: CYAN10006 PO (12:56)
[2018-08-21] MEDS ORDERED: GLIM2TAB PO (12:56)
[2018-08-21] MEDS ORDERED: AMLO5TAB9 PO (12:56)
[2018-08-21] MEDS ORDERED: L.AC1CAP6 PO (12:56)
[2018-08-21] MEDS ORDERED: CHOL10007 PO (12:56)
[2018-08-21] MEDS ORDERED: ACET325T38 PO (12:56)
== END 2018-08-21 10:20 | disposition other institution (70) ==
LOC: EDUNIT# 07:25 → ER 07:26
DX: R53.83 Other fatigue (principal); R19.7 Diarrhea, unspecified; E86.0 Dehydration; R54 Age-related physical debility; E11.40 Type 2 diabetes mellitus with diabetic neuropathy, unspecified; G47.30 Sleep apnea, unspecified; I25.10 Atherosclerotic heart disease of native coronary artery without angina pectoris; E78.00 Pure hypercholesterolemia, unspecified; K21.9 Gastro-esophageal reflux disease without esophagitis; M10.9 Gout, unspecified; I10 Essential (primary) hypertension; Z79.4 Long term (current) use of insulin; Z87.442 Personal history of urinary calculi; Z87.891 Personal history of nicotine dependence; Z90.49 Acquired absence of other specified parts of digestive tract; Z95.5 Presence of coronary angioplasty implant and graft; Z90.89 Acquired absence of other organs; Z88.8 Allergy status to other drugs, medicaments and biological substances; Z79.82 Long term (current) use of aspirin; Z79.02 Long term (current) use of antithrombotics/antiplatelets
CPT/HCPCS: 36415; 51701; 80053; 81000; 85025; 96360

== ENCOUNTER 2018-08-21 09:52 | Inpatient (IN) | payer MEDICARE, OTHER ==
[~2018-08-21] VITALS: Ht 175.3 cm; Wt 94.1 kg
[2018-08-21] MEDS ORDERED: LOPERAMIDE 2 MG (IMODIUM) CAP PO PRN (10:15)
[2018-08-21] MEDS ORDERED: ONDANSETRON 4 MG (ZOFRAN) ORAL DISSOLVE TAB PO PRN (10:15)
[2018-08-21] MEDS ORDERED: MELATONIN 3 MG TABLET PO PRN (10:15)
[2018-08-21] MEDS ORDERED: ONDANSETRON 4 MG/2 ML (SDV) Z0FRAN IVP PRN (10:15)
[2018-08-21] MEDS ORDERED: DOCUSATE SODIUM 100 MG (COLACE) CAP PO PRN (10:15)
[2018-08-21] MEDS ORDERED: diphenhydrAMINE 25 MG TAB (BENADRYL) PO PRN (10:15)
[2018-08-21] MEDS ORDERED: ACETAMINOPHEN 500 MG TAB (TYLENOL) PO PRN (10:15)
[2018-08-21] MEDS ORDERED: CALCIUM CARBONATE 500 MG (TUMS) TAB.CHEW PO PRN (10:15)
--- NOTE | 2018-08-21 10:17 | PM&R H&P / Post Admit Assess ---
History of Present Illness HPI/Chief Complaint CC: Debility HPI: This is a an elderly patient [address] Spaulding who was admitted to the inpatient rehab unit directly from ER due to severe weakness and debility. He resides at [facility] normally for the past five years. His accompanies him today. Apparently he had severe diarrhea and profound dehydration requiring two ER hospital visits which resulted in IV fluids and Flagyl initiated with good resolution of the diarrhea of which he actually completed but presented to the ER due to severe weakness. Dr. Spaulding recommended inpatient rehab unit and he was accepted after evaluation and he will be placed in the inpatient rehab protocol with intensive therapies in order to return back to [facility]. I did visit with his and his son will be in to see him later. 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 Overall he denies any pain except where the catheter was placed in order to get a urine sample. I did review his ER labs and imaging scans. His prior level of functioning was moderate independent at [facility]. Source: patient, family Exam Limitations: no limitations Date Seen 08/21/18 Time Seen by a Provider: 10:20 Attending Physician Desiree Pérez Holly A MD Referring Physician Date of Admission August 21, 2018 at 09:52 Home Medications & Allergies Home Medications Reviewed patient Home Medication Reconciliation performed by pharmacy medication reconciliations oil and gas exploration technician and/or nursing. Patients Allergies have been reviewed. Allergies Allergies Coded Allergies metformin (Unverified Adverse Reaction, Mild, 08/21/18) Past Ghyxmpl-Teextv-Iahkam Hx Past Med/Social Hx: Reviewed Nursing Past Med/Soc Hx, Reviewed and Corrections made Patient Social History Marrital Status: Employed/Student: retired Smoking Status: Former Smoker Former Smoker, Quit: Jul 10, 1991 Recent Hopitalizations: Yes Immunizations Up To Date Tetanus Booster (TDap): Unknown Date of Pneumonia Vaccine: Dec 18, 2013 Date of Influenza Vaccine: Dec 06, 2017 Seasonal Allergies Seasonal Allergies: No Past Medical History Surgeries: Appendectomy, Coronary Stent, Gallbladder, Orthopedic, Tonsillectomy Currently Using CPAP: Yes Cardiac: Coronary Artery Disease, High Cholesterol, Hypertension, Irregular Heartbeat Neurological: Neuropathy Reproductive: No Genitourinary: Kidney Stones Gastrointestinal: Gastroesophageal Reflux Musculoskeletal: Arthritis, Foot Drop, Gout Endocrine: Diabetes, Non-Insulin dep HEENT: Cataract Loss of Vision: Denies Hearing Impairment: Hard of Hearing History of Blood Disorders: No Family History Patient reports no known family medical history. Review of Systems Constitutional: see HPI, dizziness, malaise, weakness, weight loss EENTM: no symptoms reported Respiratory: no symptoms reported Cardiovascular: no symptoms reported Gastrointestinal: diarrhea, loss of appetite, vomiting Genitourinary: decreased output, other (retention) Musculoskeletal: back pain, joint pain Skin: no symptoms reported Psychiatric/Neurological: No Symptoms Reported All Other Systems Reviewed Negative Unless Noted: Yes Physical Exam Exam Vital Signs Vital Signs Date Time Temp Pulse Resp B/P (MAP) Pulse Ox O2 Delivery O2 Flow Rate FiO2 08/21/18 16:38 97.0 83 16 132/79 (96) 95 Room Air Capillary Refill : General Appearance: No Apparent Distress, WD/WN, Chronically ill, Obese HEENT: PERRL/EOMI, Normal ENT Inspection, Pharynx Normal, Moist Mucous Membranes Neck: Full Range of Motion, Normal Inspection, Non Tender, Supple Respiratory: Chest Non Tender, Lungs Clear, Normal Breath Sounds, No Accessory Muscle Use, No Respiratory Distress Cardiovascular: Regular Rate, Rhythm, No Edema, No Gallop, No JVD, No Murmur Gastrointestinal: Normal Bowel Sounds, No Organomegaly, No Pulsatile Mass, Non Tender, Soft Back: Normal Inspection, No CVA Tenderness, No Vertebral Tenderness Extremity: Normal Capillary Refill, Normal Inspection, Normal Range of Motion, Non Tender, No Calf Tenderness, No Pedal Edema Neurologic/Psychiatric: Alert, Oriented x3, Normal Mood/Affect, Motor Weakness (generalized weakness all extremities) Skin: Normal Color, Warm/Dry Lymphatic: No Adenopathy Results Results/Procedures Labs Patient resulted labs reviewed. Assessment/Plan Assessment and Plan Assess & Plan/Chief Complaint Assessment: Debility requiring IRF prior to returning back to [facility] Tremors Permanent pacemaker PAF CAD Chronic edema Chronic diarrhea GERD PINKY on CPAP HTN Gout HLP DM PVD CRI Chronic bilateral foot drop Plan: IRF protocols Consult PCP Dr Spaulding Home meds Consult Dr Sellers Monitor for falls Monitor diarrhea (1) Debility (2) Bladder retention of urine (3) Tremor (4) Chronic diarrhea (5) Fatigue (6) Mild dehydration (7) Urinary retention (8) Pacemaker (9) PAF (paroxysmal atrial fibrillation) (10) Edema (11) Diarrhea (12) Coarse tremors (13) Falls (14) Hypertension (15) Hyperlipidemia (16) Obesity (BMI 30.0-34.9) Post Admission Physician Asses Date seen by provider: August 21, 2018 Time seen by provider: 10:20 Admisison Dx: (1) Debility The preadmission screen agrees with the post admission assessment that the patient is a good candidate for inpatient rehabilitation. The patient will have a comprehensive program of inpatient rehabilitation with a goal of maximizing level of functional independence prior to discharge home at [facility]. The patient will have PT/OT ninety minutes per day, each discipline, five days a week for gait, strengthening, conditioning, balance, ADLs, any patient/family/caregiver training as necessary. Speech therapy to do cognitive assessment and treat as indicated. Rehabilitation nursing to assist with bowel, bladder, skin, wound care, medication administration, pain management. Patrol Judge to assist with discharge planning, community reentry. SCD's for DVT prophylaxis. He appears to be well motivated to participate in three hours of therapy a day. He should be able to tolerate three hours of therapy a day from a medical standpoint. He should benefit from the three hours of therapy a day. He has a reasonable discharge plan, reasonable discharge rehabilitation goals and a supportive family. He has various comorbidities that need to be closely monitored with medications and treatments adjusted on a daily basis as needed. These include: see list Barriers to discharge for this patient who had been independent prior to this are for him to be modified independent to supervision for ADLs and mobility skills prior to discharge to [facility], so as to lessen the burden of the caregivers. Risks for this patient include: 1. Fall 2. Fracture 3. DVT 4. Pulmonary embolism 5. Wound infection 6. Skin breakdown 7. Contractures 8. Poorly controlled pain 9. Urinary retention 10. UTI 11. Respiratory infection 12. Aspiration Estimated Length of Stay: 7 days Prognosis: Rehab prognosis appears good for goal of discharge back to [facility] modified independent to supervision for ADLs and mobility skills. DESIREE PÉREZ DO August 21, 2018 10:17
--- NOTE | 2018-08-21 10:30 | NUR ---
Sandrohernan Mccarthy admitted to room 232-1, with an admitting diagnosis of Weakness, tremors, on 08/21/18 from ED via wheelchair, accompanied by staff and . SANDRO MCCARTHY SR introduced to surroundings, call light, bed controls, phone, TV, temperature control, lights, meal times, smoking policy, visitor policy, side rail policy, bathrooms and showers. Patient Rights given to patient in the handbook.SADNRO MCCARTHY SR verbalizes understanding that [facility] is not responsible for the loss or damage to any personal effects or valuables that are kept in the patients possession during their hospitalization. The following Patient Care Plans were discussed with the patient: Discharge Planning, Impaired mobility, dehydration. SANDRO MCCARTHY SR verbalizes understanding of Interdisciplinary Patient Education. Patient received Patient Rights Booklet, which includes Privacy Act Statement and Data Collection Information Summary.
--- NOTE | 2018-08-21 11:01 | Physical Therapy Evaluation ---
PT Evaluation-General Medical Diagnosis Admission Date August 21, 2018 at 09:52 Medical Diagnosis: debility Onset Date: August 21, 2018 Therapy Diagnosis Therapy Diagnosis: abnormal gait Height/Weight Height (Feet): 5 Height (Inches): 7.00 Weight (Pounds): 212 Weight (Ounces): 0.0 Precautions Precautions/Isolations: Standard Precautions Weight Bear Status Right Lower Extremity: Right Full Weight Bearing Left Lower Extremity: Left Full Weight Bearing Referral Physician: Elisa Reason for Referral: Evaluation/Treatment Medical History Pertinent Medical History: Atrial Fib, Arthritis, CVA (195), DM, HTN, Neuropathy Additional Medical History pacemaker/defibrillator Current History Pt presented to ED this date with decreased ability to stand, walk or transfer. Found to be dehydrated and received IV fluids prior to presenting to this unit. Reviewed History: Yes Social History Home: Assisted Living ([facility] for 6 years.) Current Living Status: Entry Into Home: Level Entry pt resides at an [facility], level walking surfaces throughout. Prior/Core FIM Prior Level of Function Therapy Code Descriptions/Definitions Functional [place] Measure: 0=Not Assessed/NA 4=Minimal Assistance 1=Total Assistance 5=Supervision or Setup 2=Maximal Assistance 6=Modified [place] 3=Moderate Assistance 7=Complete [place] Therapy Quality Codes: 6 Independent with activity with or without an assistive device 5 Patient requires set up or clean up by helper. Patient completes activity by themselves 4 Supervision or touching assist (CGA). [place] provide cues , steadying assist 3 The helper provides less than half the effort to complete the activity 2 The helper provides more than half the effort to complete the activity 1 Dependent. The helper does all the effort to complete an activity 7 Patient refused to complete or attempt activity 9 The patient did not perform the activity before the current illness or injury 88 Not attempted due to Medical conditions or safety concerns Functional Abilities and Goals: Independent: Patient completed the activities by him/herself, with or without an assistive device, with no assistance from a helper. Needed Some Help: Patient needed partial assistance from another person to complete activities. Dependent: A helper completed the activities for the patient. Unknown: Not Applicable: Bed Mobility: 7 Transfers (B,C,W/C) (FIM): 7 (has a lift recliner in his room but is able to transfer from standard chair.) Gait: 6 (uses a FWW and a 4WW, depending on where he is walking) Stairs: 5 (reports his lives in a trailer and has steps to enter. reports he is able to go up/down her steps without assist.) Indoor Mobility (Ambulation): Independent Stairs: Independent Prior Devices Use: Walker (FWW and 4WW) reports he is able to dress himself, except his AFO's and shoes; reports he showers himself. Reports he can walk short community distances with walker. Goes to his 's home once a week and [place] once a week. PT Evaluation-Current Subjective "I should have came in yesterday, but I didn't". Agrees to PT. Reports he wears B AFO"s due to diabetic neuropathy with resultant foot drop. Pain Numeric Pain Scale: 0-No Pain Pt/Family Goals Return to [place] as before at a mod indep level. Objective Patient Orientation: Person, Place, Time, Situation Problem Solving: Fair ROM/Strength ROM Lower Extremities WFL Strenght Lower Extremities B LE strength is grossly 4-/5; DF not tested; AFO"s in place Integumentary/Posture Integumentary Refer to nursing notes for full assessment Bowel Incontinence: No Bladder Incontinence: Yes Posture normal and symmetrical Neuromuscular (Tone, Coordination, Reflexes) Coordination is impaired due to jerk like movements uncontrolled at unexpected times; reflexes are intact; does not appear to have any tone abnormality Sensory Vision: Wears Glasses Hearing: Functional Hand Dominance: Right Sensation Right Lower Extremit: Impaired Sensation Left Lower Extremity: Impaired Sensation Lower Extremities B LE neuropathy Transfers Therapy Code Descriptions/Definitions Functional [place] Measure: 0=Not Assessed/NA 4=Minimal Assistance 1=Total Assistance 5=Supervision or Setup 2=Maximal Assistance 6=Modified [place] 3=Moderate Assistance 7=Complete [place] Therapy Quality Codes: 6 Independent with activity with or without an assistive device 5 Patient requires set up or clean up by helper. Patient completes activity by themselves 4 Supervision or touching assist (CGA). [place] provide cues , steadying assist 3 The helper provides less than half the effort to complete the activity 2 The helper provides more than half the effort to complete the activity 1 Dependent. The helper does all the effort to complete an activity 7 Patient refused to complete or attempt activity 9 The patient did not perform the activity before the current illness or injury 88 Not attempted due to Medical conditions or safety concerns Transfers (B, C, W/C) (FIM): 2 Scootin Roll Left to Right (QC): 3 Supine to/from Sit: 2 (assist to move both legs andto lift trunk) Sit to/from Stand: 2 (max assist to come to a stand with skilled cues for hand placement.) Sit to Lying (QC): 3 Lying to Sitting/Side of Bed(Q: 3 Sit to Stand (QC): 2 Chair/Bpu-ao-Ovynf Xfer(QC): 2 (max assist due to "jerky" movements in standing; unsafe to stand without assist.) Car Transfer (QC): 2 Gait Does the Patient Walk?: Yes Mode of Locomotion: Walk Anticipated Mode of Locomotion: Walk Gait (FIM): 2 Distance (FIM): 1=up to 49 ft Walk 10 feet (QC): 88 (unsafe to go this distance due to uncontrolled jerks at unexpected times in standing and walking) Walk 50 ft with 2 Turns(QC): 88 Walk 150 ft (QC): 88 Walking 10ft/uneven surface-QC: 88 Distance: 5 ft Gait Level of Assist: 3 Gait Assistive Device: FWW Comments/Gait Description pt able to take steps but has uncontrolled jerking movements that significantly impair safety with walking. Wheelchair Training Does the Pt Use a Wheelchair?: No Stairs Stairs (FIM): 0 #of Steps: 0 1 Step (curb) (QC): 88 4 Steps (QC): 88 12 Steps (QC): 88 If not tested on admit;explain unsafe to attempt due to fall risk Balance Sitting Static: Fair Sitting Dynamic: Fair Standing Static: Poor Standing Dynamic: Poor Picking up an Object (QC): 88 Treatment Functional transfer training. commode transfer with toileting performing and clothing management; required assist of 2 for safety and to effectivelycomplete task. Worked on static and dynamic balance with FWW with safety training and education Assessment/Needs Pt presents with new onset of decreased ability to transfer or walk due to LE weakness; impaired balance and exaggerated jerking/twitching movements that impair safety and increase fall risk; requires max assist at times to stay upright. He will benefit from skilled PT to address these deficits to improve his mobility and allow hime to eturn to the [facility] as before. He is pleasant and coopartaive and able to follow cues. Rehab Potential: Good PT Short Term Goals Short Term Goals Time Frame: Aug 28, 2018 Transfers (B,C,W/C) (FIM): 4 Gait (FIM): 4 Distance (FIM): 3=150 ft Gait Assistive Device: FWW PT Certified Art Therapist Goals Certified Art Therapist Goals PT Assisted Goals Time Frame: Sep 08, 2018 Transfers (B,C,W/C) (FIM): 6 Sit to Lying (QC): 6 Lying-Sitting on Side/Bed(QC): 6 Sit to Stand (QC): 6 Roll Left to Right (QC): 6 Chair/Wgm-xr-Azogu Xfer(QC): 6 Car Transfer (QC): 6 Does the Patient Walk: Yes Gait (FIM): 6 Gait distance (FIM): 3=150 ft Walk 10 feet (QC): 6 Walk 10ft-Uneven Surface(QC): 6 Walk 50ft with 2 Turns (QC): 6 Walk 150 ft (QC): 6 Gait Assistive Device: FWW Stairs (FIM): 5 (household) # of Steps: 4 1 Step (curb) (QC): 6 4 Steps (QC): 6 12 Steps (QC): 88 Picking up an Object (QC): 4 PT Plan Problem List Problem List: Activity Tolerance, Functional Strength, Safety, Balance, Gait, Transfer, Bed Mobility Treatment/Plan Treatment Plan: Continue Plan of Care Treatment Plan: Bed Mobility, Education, Functional Activity Tejal, Functional Strength, Group Therapy, Gait, Safety, Therapeutic Exercise, Transfers Treatment Duration: Sep 08, 2018 Frequency: At least 5 of 7 days/Wk (IRF) Estimated Hrs Per Day: 1.5 hours per day Patient and/or Family Agrees t: Yes Safety Risks/Education Patient Education: Transfer Techniques, Safety Issues Teaching Recipient: Patient, Significant Other Teaching Methods: Demonstration, Discussion Response to Teaching: Reinforcement Needed Time/GCodes Time In: 1025 Time Out: 1130 Total Billed Treatment Time: 65 Total Billed Treatment visit EVM 30 FA 35 MATTHEW POST PT August 21, 2018 11:01
[2018-08-21 12:26] VITALS: BP 137/87
[2018-08-21] MEDS ORDERED: L.AC1CAP6 PO (12:56)
[2018-08-21] MEDS ORDERED: AMLO5TAB9 PO (12:56)
[2018-08-21] MEDS ORDERED: PRAV40TA2 PO (12:56)
[2018-08-21] MEDS ORDERED: GLIM2TAB PO (12:56)
[2018-08-21] MEDS ORDERED: TAMS0.4C98 PO (12:56)
[2018-08-21] MEDS ORDERED: CYAN10006 PO (12:56)
[2018-08-21] MEDS ORDERED: ACET325T38 PO (12:56)
[2018-08-21] MEDS ORDERED: CHOL10007 PO (12:56)
[2018-08-21] MEDS ORDERED: GABA-486 PO (12:56)
--- NOTE | 2018-08-21 13:01 | NUR ---
UPDATED MED REC WITH MAR FROM [facility] ON THE PATIENTS CHART.
--- NOTE | 2018-08-21 13:12 | Occupational Therapy Eval ---
OT Evaluation-General/PLF Medical Diagnosis Admission Date August 21, 2018 at 09:52 Medical Diagnosis: debility Onset Date: August 21, 2018 Therapy Diagnosis Therapy Diagnosis: impaired ADL and mobility Height/Weight Height (Feet): 5 Height (Inches): 9.00 Weight (Pounds): 217 Weight (Ounces): 0.3 Precautions Precautions/Isolations: Standard Precautions Weight Bear Status Weight Bearing Restriction: Weight Bearing/Tolerated Referral Physician: Elisa Referral Reason: Activity Tolerance, Self Care, Evaluation/Treatment, Strengthening/ROM Medical History Pertinent Medical History: Atrial Fib, Arthritis, CVA (1956), DM, HTN, Neuropathy Reviewed History: Yes Social History Home: Assisted Living ([facility] for 6 years[facility] Current Living Status: Entry Into Home: Level Entry ADL-Prior Level of Function Therapy Code Descriptions/Definitions Functional [place] Measure: 0=Not Assessed/NA 4=Minimal Assistance 1=Total Assistance 5=Supervision or Setup 2=Maximal Assistance 6=Modified [place] 3=Moderate Assistance 7=Complete [place] Therapy Quality Codes: 6 Independent with activity with or without an assistive device 5 Patient requires set up or clean up by helper. Patient completes activity by themselves 4 Supervision or touching assist (CGA). [place] provide cues , steadying assist 3 The helper provides less than half the effort to complete the activity 2 The helper provides more than half the effort to complete the activity 1 Dependent. The helper does all the effort to complete an activity 7 Patient refused to complete or attempt activity 9 The patient did not perform the activity before the current illness or injury 88 Not attempted due to Medical conditions or safety concerns Functional Abilities and Goals: Independent: Patient completed the activities by him/herself, with or without an assistive device, with no assistance from a helper. Needed Some Help: Patient needed partial assistance from another person to complete activities. Dependent: A helper completed the activities for the patient. Unknown: Not Applicable: ADL PLOF Comments independent PLOF. would visit spouse house once weekly. spouse lives in trailers 3STE with no hand rail. Self Care: Independent (rollvioleta, FRW) Functional Cognition: Independent DME/Equipment: Bath Bench, Shower pt reports PLOF 1 year ago he experienced same signs/ symptoms of similar inez/ lack of control over body to what is happening now. he reports the root cause of that was secondary to heart. pt stated he received pacemaker and the trimmers stopped. Drive Self: No OT Current Status Subjective pt sitting in chair upon OT Arrival in no apparent distress. pt agreed to OT evaluation/ treatment session. pt reports full body technician and no control over body. spouse present for session. pt complains of no pain. Pain Numeric Pain Scale: 0-No Pain Mental Status/Objective Patient Orientation: Normal For Age Current Glasses/Contacts: Yes Hearing Aids: No Dentures/Partials: No Hand Dominance: Right Upper Extremity ROM WFL (noted inez in João UE during ROM) Upper Extremity Coordination decrease João UE coordination secondary to trimmers. Upper Extremity Sensation WFL João UE Upper Extremity Strength 3/5 MMT NT secondary to involuntary movements and safety. noted while pt was performing shoulder flexion pt lost control of R UE secondary to inez leading to pt smacking self in face. ADL-Treatment Eating (FIM): 1 (noted increase diana. pt unable to scoop food or bring fork to mouth without all food spilling. ) Eating (QC): 1 Grooming (FIM): 2 (pt able to wash face with set up. noted trimmers. put unable to perform pral hygine secodnary to increase inez. pt unable to bring toothbrush to mouth. pt attempt to comb hair but unable to complete. noted decrease FMC) Oral Hygiene (QC): 1 Bathing (FIM): 3 Bathing Location: L Arm, R Arm, Chest, Abdomen Shower/Bathe Self (QC): 2 Upper Body Dressing (FIM): 1 (pt requried assist with all steps secodnay to increas trimmers. ) Upper Body Dressing (QC): 1 Lower Body Dressing (FIM): 1 Lower Body Dressing (QC): 1 On/Off Footwear (QC): 1 Other Treatments pt education on OT process/ rehab process, OT goals and therapy schedule. pt verbalized understanding. Education OT Patient Education: Instructions to caregiver, Modified ADL techniques, Progress toward Goal/Update tx plan, Purpose of tx/functional activities Teaching Recipient: Patient, Family Teaching Methods: Demonstration, Discussion Response to Teaching: Verbalize Understanding OT Short Term Goals Short Term Goals Eating(FIM): 4 Grooming(FIM): 4 Bathing(FIM): 4 Bathing Location: L Arm, R Arm, L Upper Leg, R Upper Leg, L Lower Leg (including foot), R Lower Leg (including foot), Chest, Abdomen, Buttocks, Perineal Area Upper Body Dressing(FIM): 4 Lower Body Dressing(FIM): 4 Toileting(FIM): 4 Transfers (B,C,W/C) (FIM): 4 Toilet/Commode Transfer(FIM): 4 Tub Transfer(FIM): 4 Shower Transfer(FIM): 4 1=Demonstrate adherence to instructed precautions during ADL tasks. 2=Patient will verbalize/demonstrate understanding of assistive device s/modifications for ADL. 3=Patient will improve strength/tolerance for activity to enable patient to perform ADL's. OT Post Hole Digging Machine Operator Goals [facility] Goals Eating (FIM): 6 Eating (QC): 6 Groomin Oral Hygiene (QC): 6 Bathing(FIM): 6 Bathing Location: L Arm, R Arm, L Upper Leg, R Upper Leg, L Lower Leg (including foot), R Lower Leg (including foot), Chest, Abdomen, Buttocks, Perineal Area Shower/Bathe Self (QC): 6 Upper Body Dressing(FIM): 6 Upper Body Dressing (QC): 6 Lower Body Dressing(FIM): 6 Lower Body Dressing (QC): 6 On/Off Footwear (QC): 6 Toileting(FIM): 6 Toileting Hygiene (QC): 6 Transfers (B,C,W/C) (FIM): 6 Toilet/Commode Transfer(FIM): 6 Toilet/Commode Transfer (QC): 6 Shower Transfer(FIM): 6 Additional Goals: 1-Demonstrate ADL Tasks, 2-Verbalize Understanding, 3- ImproveStrength/Tejal 1=Demonstrate adherence to instructed precautions during ADL tasks. 2=Patient will verbalize/demonstrate understanding of assistive devices/modifications for ADL. 3=Patient will improve strength/tolerance for activity to enable patient to perform ADL's. OT Education/Plan Problem List/Assessment Assessment: Decreased Activ Tolerance, Decreased Safety Aware, Decreased UE Strength, Dependent Transfers, Impaired Bed Mobility, Impaired Cognition, Impaired Coordination, Impaired Funct Balance, Impaired I ADL's, Impaired Self- Care Skills pt presents with functional limitations affecting areas of ADLs/ functional transfers. biggest barrier: full body tremors. pt would benefit from skilled OT Services to increase independence with ADLS/ functional transfers. Discharge Recommendations Plan/Recommendations: Continue POC Barriers to Progress full body tremors Treatment Plan/Plan of Care Treatment,Training & Education: Yes Patient would benefit from OT for education, treatment and training to promote independence in ADL's, mobility, safety and/or upper extremity function for ADL's. Plan of Care: ADL Retraining, Caregiver Training, Concurrent Therapy, Functional Mobility, Group Exercise/Act as Ind, UE Funct Exercise/Act, UE Neuromus Re-Ed/Coord Treatment Duration: Sep 18, 2018 Frequency: 5 times per week Estimated Hrs Per Day: 1.5 hours per day (60- 90 minutes per day) Rehab Potential: Good Time/GCodes Start Time: 13:00 Stop Time: 13:30 Billed Treatment Time EVM 15 minutes ADL 15 minutes, 1 unit [place] OT August 21, 2018 13:12
[2018-08-21 13:14] VITALS: BP 137/87
--- NOTE | 2018-08-21 14:13 | ST Cognitive Linguistic Eval ---
Speech Evaluation-General Medical Diagnosis debility Onset Date: August 21, 2018 Therapy Diagnosis Therapy Diagnosis: Cognitive-communication Precautions Precautions/Isolations: Fall Prevention, Standard Precautions Referral Referring Physician: Dr. Pérez Medical History Pertinent Medical History: Atrial Fib, Arthritis, CVA (1957), DM, HTN, Neuropathy Reviewed History: Yes Social History Current Living Status: Speech PLF-Current Status Prior Level of Function The patient lives in an assisted living apartment where he was independent for most of his daily needs. Subjective The patient was cooperative and attentive during the evaluation process. Language Eval: Auditory Comprehends Simple Yes/No Ques: Functional Indent/Objects Multiple [place]: Functional Ident/Pics in Multiple [place]: Functional Follows 1-Step Commands: Functional Follows Complex Directions: Functional Follows General Conversations: Functional Language Eval: Verbal Language Completes Spontaneous Greeting: Functional Produces Auto, Serial Info: Functional Imitates Simple Words/Phrases: Functional Word Finding: Functional Requests Basic Needs: Functional States Basic Personal Info: Functional Expresses Complex Ideas: Functional Objective Cognitive Domain Attention: WNL Memory: WNL Problem Solving: Functional Executive Functions: WNL Visuospatial Skills: WNL Composite Severity Rating: WNL Clock Drawing Severity Rating: WNL Objective Formal/Standardized Tests [facility] Mental Status ([facility]) Results The patient scored within the normal range at 28/30. Oral Motor/Speech Production The patient's speech is primarily within functional limits, however he is experiencing some jerking which has not been diagnosed at this time. Impression The patient is a pleasant 83 year old man who was a direct admit to the ARU from the ER due to his "jerking tremor" of unknown cause. He was evaluated with the [facility]. He is within the normal range for all areas tested. He does not qualify for skilled ST at this time. Communication/Social Cognition Comprehension: 7 Expression: 7 Social Interaction: 7 Problem Solvin Memory: 7 Speech Patient Assess Expression of Ideas/Wants: Expression (4) Understanding Verbal Content: Understands (4) Brief Interview-Mental Status: Yes Repetition of Three Words: Three (3) Temporal Orientation: Year: Correct (3) Temporal Orientation: Month: Accurate within 5 days(2) Temporal Orientation: Day: Correct (1) Recall : Wear to say "Sock": Yes, no cue required (2) Recall : Color: Yes, no cue required (2) Recall : Bed: Yes,after cueing (1) Memory/Recall Ability: Current season, Location of own room, That he or she is in a hsp/hsp unit Speech-Plan Patient/Family Goals Patient/Family Goals: The patient plans on returning to his apartment post rehab. Treatment Plan Speech Therapy Treatment Plan: Discontinue ST The patient does not require skilled ST at this time. Treatment Duration: August 21, 2018 Frequency: 1 time per week Estimated Hrs Per Day: .25 hour per day Rehab Potential: Good Barriers to Learning: None identified Pt/Family Agrees to Plan: Yes Safety Risks/Education Teaching Recipient: Patient, Significant Other Teaching Methods: Discussion Response to Teaching: Verbalize Understanding Education Topics Provided: Safety within his room. Time Speech Therapy Time In: 13:30 Speech Therapy Time Out: 13:45 Total Billed Time: 15 Billed Treatment Time 1, IVIS Sanchez August 21, 2018 14:13
--- NOTE | 2018-08-21 14:42 | Physical Therapy Daily Note ---
PT Daily Note-Current Subjective Agrees to PT. Expresses that he would like to know why he is having these "twitches"/"jerking" movements. Reports he feels this is his primary limitation. Mental Status Patient Orientation: Person, Place, Time, Situation Transfers Therapy Code Descriptions/Definitions Functional [place] Measure: 0=Not Assessed/NA 4=Minimal Assistance 1=Total Assistance 5=Supervision or Setup 2=Maximal Assistance 6=Modified [place] 3=Moderate Assistance 7=Complete [place] Therapy Quality Codes: 6 Independent with activity with or without an assistive device 5 Patient requires set up or clean up by helper. Patient completes activity by themselves 4 Supervision or touching assist (CGA). [place] provide cues , steadying assist 3 The helper provides less than half the effort to complete the activity 2 The helper provides more than half the effort to complete the activity 1 Dependent. The helper does all the effort to complete an activity 7 Patient refused to complete or attempt activity 9 The patient did not perform the activity before the current illness or injury 88 Not attempted due to Medical conditions or safety concerns Weight Bearing Right Lower Extremity: Right Full Weight Bearing Left Lower Extremity: Left Full Weight Bearing Treatments Co treat with OT due to the complexity of his movement patterns and need for skill of 2 clinicians to effectively and safely treat him. Sit to stand transfer performed with OT addressing UE control and movement as PT addressed the functional transfer. Commode transfer, again with OT addressing clothing management and UE use as PT assisted with sit to stand (max assist) and SPT (max assist) using the FWW to complete. Movements are difficult as pt has uncontrolled twitches that interfere with stabiloity and safety. Pt in chair post treatment with needs met. Assessment Limited by twitching movements that are uncontrolled. PT Short Term Goals Short Term Goals Time Frame: Aug 28, 2018 Transfers (B,C,W/C) (FIM): 4 Gait (FIM): 4 Distance (FIM): 3=150 ft Gait Assistive Device: FWW PT Director Cardiology Goals Director Cardiology Goals PT Longterm Goals Time Frame: Sep 08, 2018 Transfers (B,C,W/C) (FIM): 6 Sit to Lying (QC): 6 Lying-Sitting on Side/Bed(QC): 6 Sit to Stand (QC): 6 Roll Left to Right (QC): 6 Chair/Qim-yd-Snvvw Xfer(QC): 6 Car Transfer (QC): 6 Does the Patient Walk: Yes Gait (FIM): 6 Gait distance (FIM): 3=150 ft Walk 10 feet (QC): 6 Walk 10ft-Uneven Surface(QC): 6 Walk 50ft with 2 Turns (QC): 6 Walk 150 ft (QC): 6 Gait Assistive Device: FWW Stairs (FIM): 5 (household) # of Steps: 4 1 Step (curb) (QC): 6 4 Steps (QC): 6 12 Steps (QC): 88 Picking up an Object (QC): 4 PT Plan Problem List Problem List: Activity Tolerance, Functional Strength, Safety, Balance, Gait, Transfer, Bed Mobility Treatment/Plan Treatment Plan: Continue Plan of Care Treatment Plan: Bed Mobility, Education, Functional Activity Tejal, Functional Strength, Group Therapy, Gait, Safety, Therapeutic Exercise, Transfers Treatment Duration: Sep 08, 2018 Frequency: At least 5 of 7 days/Wk (IRF) Estimated Hrs Per Day: 1.5 hours per day Patient and/or Family Agrees t: Yes Safety Risks/Education Patient Education: Safety Issues Teaching Recipient: Patient Teaching Methods: Discussion Response to Teaching: Return Demonstration Time/GCodes Time In: 1400 Time Out: 1430 Total Billed Treatment Time: 30 Total Billed Treatment visit FA 30 co treat with MATTHEW ARMSTRONG PT August 21, 2018 14:42
--- NOTE | 2018-08-21 14:53 | Occupational Ther Daily Note ---
OT Current Status-Daily Note Subjective pt agreed to OT TX session. Co treat with PT due to the complexity of treatment that could not be fulfil by a nurse technician secondary to pt movement/ tremors patterns requiring need for skill of 2 clinicians to effectively and safely treat him. Mental Status/Objective Therapy Code Descriptions/Definitions Functional Mitchells Measure: 0=Not Assessed/NA 4=Minimal Assistance 1=Total Assistance 5=Supervision or Setup 2=Maximal Assistance 6=Modified Mitchells 3=Moderate Assistance 7=Complete Mitchells ADL-Treatment Therapy Code Descriptions/Definitions Functional Mitchells Measure: 0=Not Assessed/NA 4=Minimal Assistance 1=Total Assistance 5=Supervision or Setup 2=Maximal Assistance 6=Modified Mitchells 3=Moderate Assistance 7=Complete Mitchells Therapy Quality Codes: 6 Independent with activity with or without an assistive device 5 Patient requires set up or clean up by helper. Patient completes activity by themselves 4 Supervision or touching assist (CGA). [place] provide cues , steadying assist 3 The helper provides less than half the effort to complete the activity 2 The helper provides more than half the effort to complete the activity 1 Dependent. The helper does all the effort to complete an activity 7 Patient refused to complete or attempt activity 9 The patient did not perform the activity before the current illness or injury 88 Not attempted due to Medical conditions or safety concerns Toileting (FIM): 1 Toileting Hygiene (QC): 1 Toilet/Commode Transfer (FIM): 1 (MAX A X 2 person assist ) Other Treatment pt transported to TX session. (OT only for 15 minutes) OT address João UE tri mers. noted more inez/ uncontrolled movement on RUE compared to LUE. 2# wrist weights applied to R wrist for proprioceptive inpt. noted slight decrease in R inez allowing pt to perform finger to nose test. Co_treat with PT (30 minutes) pt education on proper method when performing sit to stands. pt demo ability to perform sit to stand with MAX A while OT address UE control including hand over hand placement for tactile cuing and PT addressed functional demo transfers/ gross movements. pt then perform toilet transfers, OT address clothing management. UE use and PT address/ assist with stand pivot transfers (MAX A ) using RW. noted transfers/ full body movements are difficult and uncontrolled leading to instability. pt sitting in recliner chair post TX session. all needs met. Education OT Patient Education: Energy conservation, Modified ADL techniques, Progress toward Goal/Update tx plan, Purpose of tx/functional activities, Rehab process, Safety issues, Transfer techniques Teaching Recipient: Patient, Significant Other Teaching Methods: Demonstration, Discussion Response to Teaching: Verbalize Understanding, Return Demonstration OT Short Term Goals Short Term Goals Eating(FIM): 4 Grooming(FIM): 4 Bathing(FIM): 4 Bathing Location: L Arm, R Arm, L Upper Leg, R Upper Leg, L Lower Leg (including foot), R Lower Leg (including foot), Chest, Abdomen, Buttocks, Perineal Area Upper Body Dressing(FIM): 4 Lower Body Dressing(FIM): 4 Toileting(FIM): 4 Transfers (B,C,W/C) (FIM): 4 Toilet/Commode Transfer(FIM): 4 Tub Transfer(FIM): 4 Shower Transfer(FIM): 4 1=Demonstrate adherence to instructed precautions during ADL tasks. 2=Patient will verbalize/demonstrate understanding of assistive devices/modifications for ADL. 3=Patient will improve strength/tolerance for activity to enable patient to perform ADL's. OT Chcf Goals Cut To Length Operator Goals Eating (FIM): 6 Eating (QC): 6 Groomin Oral Hygiene (QC): 6 Bathing(FIM): 6 Bathing Location: L Arm, R Arm, L Upper Leg, R Upper Leg, L Lower Leg (including foot), R Lower Leg (including foot), Chest, Abdomen, Buttocks, Perineal Area Shower/Bathe Self (QC): 6 Upper Body Dressing(FIM): 6 Upper Body Dressing (QC): 6 Lower Body Dressing(FIM): 6 Lower Body Dressing (QC): 6 On/Off Footwear (QC): 6 Toileting(FIM): 6 Toileting Hygiene (QC): 6 Transfers (B,C,W/C) (FIM): 6 Toilet/Commode Transfer(FIM): 6 Toilet/Commode Transfer (QC): 6 Shower Transfer(FIM): 6 Additional Goals: 1-Demonstrate ADL Tasks, 2-Verbalize Understanding, 3-ImproveStrength/Tejal 1=Demonstrate adherence to instructed precautions during ADL tasks. 2=Patient will verbalize/demonstrate understanding of assistive devices/modifications for ADL. 3=Patient will improve strength/tolerance for activity to enable patient to perform ADL's. OT Education/Plan Problem List/Assessment pt presents with functional limitations affecting areas of ADLs/ functional transfers. biggest barrier: full body tremors. pt would benefit from skilled OT Services to increase independence with ADLS/ functional transfers. Discharge Recommendations Plan/Recommendations: Continue POC Treatment Plan/Plan of Care Treatment,Training & Education: Yes Patient would benefit from OT for education, treatment and training to promote independence in ADL's, mobility, safety and/or upper extremity function for ADL's. Plan of Care: ADL Retraining, Caregiver Training, Concurrent Therapy, Functional Mobility, Group Exercise/Act as Ind, UE Funct Exercise/Act, UE Neuromus Re-Ed/Coord Treatment Duration: Sep 18, 2018 Frequency: 5 times per week Estimated Hrs Per Day: 1.5 hours per day (60- 90 minutes per day) Rehab Potential: Good Time/GCodes Start Time: 13:45 Stop Time: 14:30 Billed Treatment Time ADL 25 minutes, 2 units FA 20 minutes, 1 unit NEW [place]O OT August 21, 2018 14:53
[2018-08-21 15:14] LABS: MAGNESIUM 1.7 MG/DL (1.8-2.4)
[2018-08-21 15:35] LABS: FREE T4 (FREE THYROXINE) 1.11 NG/DL (0.70-1.48)
[2018-08-21 16:38] VITALS: BP 132/79
--- NOTE | 2018-08-21 16:49 | NUR ---
DIRECTOR CHINA met with patient to complete initial assessment. Patient was alert and oriented and agreeable to assessment. Patient admitted to a from [facility] ED with general debility. Prior to hospitalization patient resided in [facility] in [place], [place]. He has resided at this location for over 6 years and intends to return, if able at discharge. Prior to recent episode of weakness patient was independent with most activities with utilization of a front-wheeled walker or for build walker. He did require assistance with lower body ADLs. Patient no longer drives; however, does visit , Crissy weekly at their home in [place], [place]. The need is home has 3 steps at the entrance with no railing. Patient identifies as primary contact at [phone] and sonMatheus Jr as a secondary contact at [phone]. PCP identified as Dr. Leann HINES. Insurance verified as Medicare and [employer] insurance with prescription coverage and preferred pharmacy as [facility]. Patient also has a long-term care policy which provides assistance with costs of assisted living. DIRECTOR CHINA reviewed typical a length of stay and weekly team conferences. Patient expressed no concerns at this time. DIRECTOR CHINA will continue to follow.
[2018-08-21] MEDS: MAGNESIUM 1 GM/100 ML IVPB 100 ML IV SCH ×2 (18:17→18:18)
--- NOTE | 2018-08-21 18:59 | Consultation-Cardiology ---
HPI-Cardiology Cardiology Consultation: Date of Consultation 08/21/18 Time Seen by a Provider: 18:40 Date of Admission Attending Physician Desiree Pérez DO Admitting Physician Leann Spaulding MD Consulting Physician DEEJAY KENYON MD, MA, FACP, FACC, FSCAI, CCDS HPI: Chief Complaint: Reason for consultation: involuntary movments Mr. Mccarthy is an 83 year old male admitted to IRU 232 from the ED. He currently resides at [facility]. He reports approx a few weeks ago he began to have episodes of frequent diarrhea. He states he felt it started in conjunction with a change in his diabetic medication. He reports he was then given another medication for the diarrhea, but feels this did not help either. He reports he has had intolerance to the cold starting about 2 days ago. He denies any fever. He reports yesterday he began to have uncontrollable trembling of his jaw, hands and legs. He reports this is similar to the episode he had approx a year ago at which time he was transferred to [facility]. He reports he has had some difficulty with urination and decreased output, but feels this has improved since he has been here. He does have a PPM which is followed by of [facility]. He reports it has been recently checked remotely. He reports chronic bilat LE swelling which is least in the morning and worse at the end of the day. He denies any n/v. He denies any vision changes. He denies any difficulty swallowing. He denies any syncope or near syncope. Review of Systems-Cardiology Review of Systems Constitutional: chills; No fever; malaise Eyes: No vision change Ears/Nose/Throat: No epistaxis, No nasal drainage, No recent hearing loss Respiratory: As described under HPI Cardiovascular: As described under HPI Gastrointestinal: No constipation; diarrhea; No nausea, No vomiting Genitourinary: dysuria; No urine frequency changes, No urine coloration changes Musculoskeletal: no symptoms reported Skin: No rash, No ulcerations Psychiatric/Neurological: No syncope Hematologic: No bleeding abnormalities GEI-Gfkzra-Ehsday Hx Patient Social History Alcohol Use: Denies Use Recreational Drug Use: No Recent Foreign Travel: No Recent Infectious Disease Expo: No Physical Abuse Screen: No Sexual Abuse: No Immunizations Up To Date Tetanus Booster (TDap): Unknown Date of Pneumonia Vaccine: Dec 23, 2017 Date of Influenza Vaccine: Dec 06, 2017 Past Medical History PMH As described under Assessment. Family Medical History Family History: Patient reports no known family medical history. Allergies and Home Medications Allergies Coded Allergies: metformin (Unverified Adverse Reaction, Mild, 08/21/18) Home Medications Acetaminophen 325 Mg Tablet, 325 MG PO 0700,1999, (Reported) Acetaminophen 325 Mg Tablet, 325 MG PO Q6H PRN for TEMPERATURE, (Reported) Allopurinol 100 Mg Tablet, 100 MG PO 07,1999, (Reported) Amlodipine Besylate 5 Mg Tablet, 5 MG PO 0700, (Reported) Aspirin 81 Mg Tablet.dr, 81 MG PO 1999, (Reported) Cholecalciferol (Vitamin D3) 1,000 Unit Capsule, 1,000 UNIT PO 0700, (Reported) Clopidogrel Bisulfate 75 Mg Tablet, 75 MG PO 1999, (Reported) Cyanocobalamin (Vitamin B-12) 1,000 Mcg Tablet, 1,000 MCG PO 0700, (Reported) Finasteride 5 Mg Tablet, 5 MG PO 0700, (Reported) Gabapentin 100 Mg Capsule, 100 MG PO TID, (Reported) Glimepiride 4 Mg Tablet, 4 MG PO 0700, (Reported) L.acidoph & Paracasei,B.lactis 1 Each Capsule, 1 CAP PO 699,1999, (Reported) Loperamide HCl 2 Mg Tablet, PO UD PRN for LOOSE STOOLS, (Reported) TAKE 2 AFTER 1ST LOOSE STOOL THEN 1 AFTER EACH LOOSE STOOL (MAX 4 IN 24 HOURS) Meclizine HCl 25 Mg Tablet, 25 MG PO TID PRN for DIZZINESS, (Reported) Pantoprazole Sodium 40 Mg Tablet.dr, 40 MG PO 0700, (Reported) Pravastatin Sodium 40 Mg Tablet, 40 MG PO 1999, (Reported) Tamsulosin HCl 0.4 Mg Cap, 0.4 MG PO 1999, (Reported) Patient Home Medication List Home Medication List Reviewed: Yes Physical Exam-Cardiology Physical Exam Vital Signs/I&O 08/21/18 08/21/18 08/21/18 08/21/18 11:00 12:26 13:14 16:38 Temp 97.0 97.0 97.0 Pulse 94 94 83 Resp 20 20 16 B/P (MAP) 137/87 137/87 132/79 (96) Pulse Ox 93 93 95 O2 Delivery Room Air Room Air Room Air Room Air Capillary Refill : Constitutional: AAO x 3, well-developed, well-nourished HEENT: PERRL, hearing is well preserved, oral hygience is good Neck: No carotid bruit; carotid pulses are 2 + bilaterally Respiratory: chest expansion is symmetric, chest is bilaterally symmetric, lungs clear to auscultation Cardiovascular: regular rate-rhythm; No JVD; S1 and S2 Gastrointestinal: No tender; soft, round, audible bowel sounds Rectal: deferred Extremities: other (braces in place bilat d/t chronic foot drop), no lower extremity edema bilateral Neurologic/Psychiatric: other (involuntary movement of jaw and hands) Skin: No rash on exposed areas, No ulcerations on exposed areas Data Review Labs Laboratory Tests 08/21/18 07:50: Erythrocyte Sedimentation Rate 24, Magnesium Level 1.7L, C-Reactive Protein High Sensitivity 0.15, Amylase Level 65, Lipase 44, Thyroid Stimulating Hormone (TSH) 0.48, Free Thyroxine 1.11 A/P-Cardiology Assessment/Admission Diagnosis Involuntary movements of jaw, hands, arms with gen muscle weakness of undetermined etiology. 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 Pt states last interrogation was last month and it was functioning normally H/O PAF documented during hospitalization of June 2017 at [facility] (in the setting of ac renal failure) - Eliquis started at that time, but was stopped during hospitalization at [facility] (Dr Torres) Coronary artery disease with history of angioplasty and stenting of the mid left anterior descending and the right coronary artery. Cardiac cath of January 01, 2017: 70-80% mid vessel stenosis of fhe LAD to which successful stenting was carried out with a Resolute 2.25 x 22 mm stent deployed at 16 atmospheres with reduction of stenosis to 0%. A more proximal LAD stent is widely patent. A very small caliber first diagonal branch is jailed by the stnet and has 70% ostial stenosis but is not amenable to intervention d/t small vessel size. 50% mid vessel stenosis left cx artery with a FFR of greater than 0.9, indicating he modynamic insignificance. Patent stents in the prox and mid RCA with proximal stent exhibiting approx 40-50% in stent restenosis. Mild to mod LVEDP elevation. MPI of 11-08-15 did not show myocardial ischemia or infarction and LVEF was 72% History of isolated premature atrial and ventricular contractions. Mild carotid artery disease per carotid ultrasonography of November 2015. Chronic intermittent leg swelling, likely related to venous insufficiency, currently controlled Chronic intermittent diarrhea of undetermined etiology, Degenerative joint disease. Gastroesophageal reflux. Sleep apnea, being treated with C-PAP therapy. Hypertension, under good control. Gout. Hyperlipidemia being treated with lovastatin. Borderline maturity onset diabetes mellitus. Obesity with a body mass index of approximately 31 Chronic poor balance being followed by Dr. Spaulding PAD. Scattered atherosclerotic disease of the bilateral lower extremity arterial systems, no hemodynamically significant stenosis per bilateral lower extremity arterial Doppler from 04/30/2012. U/S from 11-24-14 showed no sonographic evidence for hemodynamically significant stenosis or arterial occlusion within either leg. Seg pressures on 05/24/17 WNL Ac renal failure in June 2017. 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
[2018-08-21] MEDS: inSUlin ASPART (NovoLOG) 1 UNIT/0.01 ML (CHARGE PER UNIT) SC SCH (20:57)
--- NOTE | 2018-08-21 22:13 | Consultation ---
History of Present Illness History of Present Illness Patient Consulted On(dipika/time) 08/21/18 22:08 Date Seen by Provider: August 21, 2018 Time Seen by Provider: 09:45 Reason for Visit: inpatient rehab stay for debility History of Present Illness MR. ORBERTS IS A RELATIVELY NEW PATIENT TO MY PRACTICE. HE WAS SEEN SEVERAL WEEKS AGO BY THE NURSE PRACTITIONER FOR ROUTINE FOLLOW UP ON HIS DIABETES. AT HIS OFFICE VISIT, HE REPORTED THAT HE HAD BEEN HAVING DIARRHEA FOR SEVERAL DAYS PRIOR TO THE APPOINTMENT,THEN THE SYMPTOMS RESOLVED THE MORNING OF HIS APPOINTMENT AFTER HE STARTED TO DRINK GATORADE. THE EMERGENCY DEPARTMENT REPORTED THAT THE PATIENT TOLD THEM HE HAD BEEN HAVING DIARRHEA FOR "WEEKS" AND THAT HE WAS DEHYDRATED AND HAVING SYMPTOMS SIMILAR TO WHEN HE HAD TO BE SHIPPED TO [place] FOR IV HYDRATION DUE TO RENAL FAILURE. THIS EVENING HE REPORTS THAT HE HAS NOT HAD DIARRHEA SINCE July. HE REPORTS THAT HE STARTED TO HAVE TWITCHING AND JERKING OF HIS RIGHT FACE/ARM THIS MORNING AND IT HAS BEEN PERSISTENT - IT QUIETS DOWN IF HE IS SILENT AND DOES NOT HAVE COMPANY, THEN INTENSIFIES IF HE HAS CONVERSATION OR STIMULATION IN THE ROOM. Allergies and Home Medications Allergies Coded Allergies: metformin (Unverified Adverse Reaction, Mild, 08/21/18) Home Medications Acetaminophen 325 Mg Tablet, 325 MG PO 0700,1999, (Reported) Acetaminophen 325 Mg Tablet, 325 MG PO Q6H PRN for TEMPERATURE, (Reported) Allopurinol 100 Mg Tablet, 100 MG PO 699,1999, (Reported) Amlodipine Besylate 5 Mg Tablet, 5 MG PO 0700, (Reported) Aspirin 81 Mg Tablet.dr, 81 MG PO 1999, (Reported) Cholecalciferol (Vitamin D3) 1,000 Unit Capsule, 1,000 UNIT PO 0700, (Reported) Clopidogrel Bisulfate 75 Mg Tablet, 75 MG PO 2000, (Reported) Cyanocobalamin (Vitamin B-12) 1,000 Mcg Tablet, 1,000 MCG PO 0700, (Reported) Finasteride 5 Mg Tablet, 5 MG PO 0700, (Reported) Gabapentin 100 Mg Capsule, 100 MG PO TID, (Reported) Glimepiride 4 Mg Tablet, 4 MG PO 0700, (Reported) L.acidoph & Paracasei,B.lactis 1 Each Capsule, 1 CAP PO 07,1999, (Reported) Loperamide HCl 2 Mg Tablet, PO UD PRN for LOOSE STOOLS, (Reported) TAKE 2 AFTER 1ST LOOSE STOOL THEN 1 AFTER EACH LOOSE STOOL (MAX 4 IN 24 HOURS) Meclizine HCl 25 Mg Tablet, 25 MG PO TID PRN for DIZZINESS, (Reported) Pantoprazole Sodium 40 Mg Tablet.dr, 40 MG PO 0700, (Reported) Pravastatin Sodium 40 Mg Tablet, 40 MG PO 2000, (Reported) Tamsulosin HCl 0.4 Mg Cap, 0.4 MG PO 2000, (Reported) Patient Home Medication List Home Medication List Reviewed: Yes Past Kiqgxxz-Oxgasg-Ccweuh Hx Past Med/Social Hx: Reviewed Nursing Past Med/Soc Hx, Reviewed and Corrections made Patient Social History Alcohol Use: Denies Use Recreational Drug Use: No Smoking Status: Former Smoker Former Smoker, Quit: Jul 10, 1991 2nd Hand Smoke Exposure: No Recent Foreign Travel: No Contact w/Someone Who Travel: No Recent Infectious Disease Expo: No Recent Hopitalizations: No Physical Abuse: No Sexual Abuse: No Mistreated: No Fear: No Immunizations Up To Date Tetanus Booster (TDap): Unknown Date of Pneumonia Vaccine: Dec 23, 2017 Date of Influenza Vaccine: Dec 06, 2017 Seasonal Allergies Seasonal Allergies: No Past Medical History Surgeries: Yes (R foot screw, ) Appendectomy, Coronary Stent, Gallbladder, Orthopedic, Tonsillectomy Respiratory: No Sleep Apnea Currently Using CPAP: Yes Cardiac: Yes Coronary Artery Disease, High Cholesterol, Hypertension, Irregular Heartbeat Neurological: Yes Neuropathy Reproductive Disorders: No Genitourinary: Yes (urinary retention) Kidney Stones Gastrointestinal: Yes Gastroesophageal Reflux, Irritable Bowel Musculoskeletal: Yes (SCREWS PLACED IN RIGHT ANKLE > 15 YRS AGO) Arthritis, Foot Drop, Gout Endocrine: Yes Diabetes, Non-Insulin dep Cataract Loss of Vision: Denies Hearing Impairment: Hard of Hearing Cancer: No Psychosocial: No Integumentary: No Blood Disorders: No Family Medical History Reviewed and Corrections made Patient reports no known family medical history. Hypertension Review of Systems-General Constitutional: No chills, No fever; malaise, weakness EENTM: No hoarseness, No throat pain Respiratory: No cough, No dyspnea on exertion; short of breath Cardiovascular: No chest pain; edema, Hx of Intervention; No palpitations; vascular heart diseas Gastrointestinal: No abdominal pain; diarrhea; No loss of appetite Genitourinary: no symptoms reported Musculoskeletal: muscle twitching Skin: no symptoms reported Psychiatric/Neurological: Denies Anxiety; Numbness (OF FEET), Paresthesia, Tremors, Weakness All Other Systems Reviewed Negative Unless Noted: Yes Physical Exam-General Problems Physical Exam Vital Signs Vital Signs - First Documented 08/21/18 08/21/18 11:00 12:26 Temp 97.0 Pulse 94 Resp 20 B/P (MAP) 137/87 Pulse Ox 93 O2 Delivery Room Air Capillary Refill : General Appearance: WD/WN, no apparent distress, other (INTERMITTENT JERKING/TWITCHING OF FACIAL MUSCLES AND ARM ON RIGHT SIDE) Eyes: Bilateral Eye PERRL, Bilateral Eye EOMI HEENT: pharynx normal Neck: non-tender, full range of motion, supple, normal inspection Respiratory: chest non-tender, lungs clear, normal breath sounds, no respiratory distress Cardiovascular: regular rate, rhythm, other (2+ PITTING OF FEET) Gastrointestinal: normal bowel sounds, non tender, soft, no organomegaly, no pulsatile mass Rectal: deferred Extremities: normal range of motion, non-tender, pedal edema Neurologic/Psychiatric: hopper attendant II-XII nml as tested, alert, normal mood/affect, oriented x 3, other (DECREASED REFLEXES AT ARMS/KNEES) Skin: normal color, warm/dry Lymphatic: no adenopathy Assessment/Plan Assessment/Plan Admission Diagnosis/Plan DIARRHEA - CHRONIC DIABETES MELLITUS- UNCONTROLLED HYPERTENSION CORONARY ARTERY DISEASE HYPERLIPIDEMIA GASTROESOPHAGEAL REFLUX 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 DIABETES MELLITUS- UNCONTROLLED - - STOP ORAL MEDICATIONS - START ON LEVEMIR 10 UNITS AT HS - FSBS AC/HS HYPERTENSION - RESTART HOME REGIMEN CORONARY ARTERY DISEASE - DEFER TO CARDIOLOGY HYPERLIPIDEMIA - HOLD/STOP STATIN - WITH HIS CHRONIC MYALGIAS, PERSISTENT WEAK NESS WHICH IS WORSENING AND WITH HIS ADVANCED AGE, THE LIKELIHOOD THAT THE STATIN IS GOING TO BE OF LIFE-PROLONGING BENEFIT IS LOW - THEREFORE I WOULD ADVOCATE FOR A TOTAL CESSATION OF THIS MEDICATION. GASTROESOPHAGEAL REFLUX- HOLD THE PPI - THIS CAN PROPAGATE DIARRHEA -- INCREASE RISK FOR CDIFF - AND START ON ZANTAC IF NEEDED. 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 POLYPHARMACY - - WEAN DOWN MEDICATIONS ABLE TO IMPROVE MEDICATION BURDEN Admission Status: Inpatient Order (span 2 midnights) Reason for Inpatient Admission: PT EXPECTED TO STAY ON THE INPT REHAB UNIT FOR AT LEAST 4-5 MIDNIGHTS FOR STRENGTHENING AND MEDICATION ADJUSTMENTS Clinical Quality Measures DVT/VTE Risk/Contraindication: Risk Factor Score Per Nursin RFS Level Per Nursing on Admit: 4+=Very High MARY HINES MD August 21, 2018 22:13
[2018-08-21] MEDS ORDERED: ACETAMINOPHEN 325 MG TABLET ONE (22:25)
[2018-08-21] MEDS ORDERED: TAMSULOSIN 0.4 MG (FLOMAX) CAP PO ONE (22:25)
[2018-08-21] MEDS ORDERED: CLOPIDOGREL 75 MG (PLAVIX) TABLET ONE (22:25)
[2018-08-21] MEDS ORDERED: ALLOPURINOL 100 MG (ZYLOPRIM) TAB ONE (22:26)
[2018-08-21] MEDS ORDERED: LACTOBACILLUS ACIDOPHILUS (PROBIOTIC) CAPSULE ONE (22:27)
[2018-08-21] MEDS: TAMSULOSIN 0.4 MG (FLOMAX) CAP PO SCH (22:32)
[2018-08-21] MEDS: CLOPIDOGREL 75 MG (PLAVIX) TABLET PO SCH (22:32)
[2018-08-21] MEDS: ACETAMINOPHEN 325 MG TABLET PO SCH (22:33)
[2018-08-21] MEDS: ALLOPURINOL 100 MG (ZYLOPRIM) TAB PO SCH (22:33)
[2018-08-21] MEDS: LACTOBACILLUS ACIDOPHILUS (PROBIOTIC) CAPSULE PO SCH (22:33)
[2018-08-22] MEDS: inSUlin ASPART (NovoLOG) 1 UNIT/0.01 ML (CHARGE PER UNIT) SC SCH ×4 (04:52→20:30)
[2018-08-22 05:08] VITALS: BP 120/72
[2018-08-22 06:13] LABS: HEMOGLOBIN 11.5 G/DL (13.3-17.7); MEAN PLATELET VOLUME 9.6 FL (7.4-10.4); RED CELL DISTRIBUTION WIDTH 15.1 % (10.0-14.5); WHITE BLOOD COUNT 6.8 10^3/uL (4.3-11.0)
[2018-08-22] MEDS: LIPASE/AMYLASE/PROTEASE (PANCRELIPASE) 5,000 UNITS CAP PO SCH ×3 (06:16→16:25)
[2018-08-22] MEDS: VITAMIN D3 1,000 UNITS (CHOLECALCIFEROL) TABLET PO SCH (06:16)
[2018-08-22] MEDS: FINASTERIDE (PROSCAR) 5 MG TAB PO SCH (06:16)
[2018-08-22] MEDS: amLODIPine 5 MG (NORVASC) TAB PO SCH (06:16)
[2018-08-22] MEDS: CYANOCOBALAMIN 1,000 MCG (VITAMIN B-12) TABLET PO SCH (06:17)
[2018-08-22] MEDS: ACETAMINOPHEN 325 MG TABLET PO SCH ×2 (06:17→20:30)
[2018-08-22] MEDS: ALLOPURINOL 100 MG (ZYLOPRIM) TAB PO SCH ×2 (06:17→20:30)
[2018-08-22] MEDS: LACTOBACILLUS ACIDOPHILUS (PROBIOTIC) CAPSULE PO SCH ×2 (06:18→20:30)
[2018-08-22 06:33] LABS: ALANINE AMINOTRANSFERASE 55 U/L (0-55); ALBUMIN 3.2 GM/DL (3.2-4.5); ALKALINE PHOSPHATASE 48 U/L (40-136); BILIRUBIN,TOTAL 0.4 MG/DL (0.1-1.0); BUN/CREATININE RATIO 20; CALCIUM 8.6 MG/DL (8.5-10.1); CARBON DIOXIDE 25 MMOL/L (21-32); CHLORIDE 107 MMOL/L (98-107); CREATININE SERUM 1.06 MG/DL (0.60-1.30); GFR ESTIMATED > 60; GLUCOSE 125 MG/DL (70-105); MAGNESIUM 2.2 MG/DL (1.8-2.4); POTASSIUM 3.6 MMOL/L (3.6-5.0); SODIUM 138 MMOL/L (135-145); TOTAL PROTEIN 5.5 GM/DL (6.4-8.2)
[2018-08-22] MEDS ORDERED: NON-FORMULARY MEDICATION 1 EA EA (L.acidoph & Paracasei,B.lactis (Probiotic) 1 CAP) PO SCH (07:00)
[2018-08-22] MEDS ORDERED: NON-FORMULARY MEDICATION 1 EA EA (Allopurinol 100 MG) PO SCH (07:00)
[2018-08-22] MEDS ORDERED: NON-FORMULARY MEDICATION 1 EA EA (Amlodipine Besylate 5 MG) PO SCH (07:00)
[2018-08-22] MEDS ORDERED: NON-FORMULARY MEDICATION 1 EA EA (Cholecalciferol (Vitamin D3) (Vitamin D3) 1,000 UNIT) PO SCH (07:00)
--- NOTE | 2018-08-22 08:38 | PM&R Progress Note ---
Subjective HPI/CC On Admission Date Seen by Provider: August 22, 2018 Time Seen by Provider: 08:45 CC: Debility HPI: This is a an elderly patient [address] Spaulding who was admitted to the inpatient rehab unit directly from ER due to severe weakness and debility. He resides at [facility] living [facility] normally for the past five years. His accompanies him today. Apparently he had severe diarrhea and profound d ehydration requiring two ER hospital visits which resulted in IV fluids and Flagyl initiated with good resolution of the diarrhea of which he actually completed but presented to the ER due to severe weakness. Dr. Spaulding recommended inpatient rehab unit and he was accepted after evaluation and he w ill be placed in the inpatient rehab protocol with intensive therapies in order to return back to [facility]. I did visit with his and his son will be in to see him later. 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 Overall he denies any pain except where the catheter was placed in order to get a urine sample. I did review his ER labs and imaging scans. His prior level of functioning was moderate independent at [facility]. Subjective/Events-last exam Patient participating with therapies Walking with assistance Needs colonoscopy for diarrhea Magnesium really helped his tremors Appreciate Dr Marlo Spaulding saw patient yesterday Checked meds and labs Slept well last night Conferred with hatchery man of Systems General: Fatigue Musculoskeletal: leg pain Objective Exam Vital Signs Vital Signs Date Time Temp Pulse Resp B/P (MAP) Pulse Ox O2 Delivery O2 Flow Rate FiO2 08/22/18 09:00 Room Air 08/22/18 05:08 98.0 80 18 120/72 (88) 94 Capillary Refill : General Appearance: No Apparent Distress, WD/WN, Chronically ill, Obese HEENT: PERRL/EOMI, Normal ENT Inspection, Pharynx Normal, Moist Mucous Membranes Neck: Full Range of Motion, Normal Inspection, Non Tender, Supple Respiratory: Chest Non Tender, Lungs Clear, Normal Breath Sounds, No Accessory Muscle Use, No Respiratory Distress Cardiovascular: Regular Rate, Rhythm, No Edema, No Gallop, No JVD, No Murmur Gastrointestinal: Normal Bowel Sounds, No Organomegaly, No Pulsatile Mass, Non Tender, Soft Back: Normal Inspection, No CVA Tenderness, No Vertebral Tenderness Extremity: Normal Capillary Refill, Normal Inspection, Normal Range of Motion, Non Tender, No Calf Tenderness, No Pedal Edema Neurologic/Psychiatric: Alert, Oriented x3, Normal Mood/Affect, Motor Weakness (generalized weakness all extremities) Skin: Normal Color, Warm/Dry Lymphatic: No Adenopathy Results/Procedures Lab Laboratory Tests 08/22/18 05:55 Patient resulted labs reviewed. FIM Transfers Therapy Code Descriptions/Definitions Functional [place] Measure: 0=Not Assessed/NA 4=Minimal Assistance 1=Total Assistance 5=Supervision or Setup 2=Maximal Assistance 6=Modified [place] 3=Moderate Assistance 7=Complete [place] Therapy Quality Codes: 6 Independent with activity with or without an assistive device 5 Patient requires set up or clean up by helper. Patient completes activity by themselves 4 Supervision or touching assist (CGA). [place] provide cues , steadying assist 3 The helper provides less than half the effort to complete the activity 2 The helper provides more than half the effort to complete the activity 1 Dependent. The helper does all the effort to complete an activity 7 Patient refused to complete or attempt activity 9 The patient did not perform the activity before the current illness or injury 88 Not attempted due to Medical conditions or safety concerns Transfers (B, C, W/C) (FIM): 2 Scootin Roll Left to Right (QC): 3 Supine to/from Sit: 2 (assist to move both legs andto lift trunk) Sit to/from Stand: 2 (max assist to come to a stand with skilled cues for hand placement.) Sit to Lying (QC): 3 Sit to Stand (QC): 2 Chair/Hhm-to-Rhknx Xfer(QC): 2 (max assist due to "jerky" movements in standing; unsafe to stand without assist.) Car Transfer (QC): 2 Gait Training Does the Patient Walk?: Yes Gait (FIM): 2 Distance (FIM): 1=up to 49 ft Walk 10 feet (QC): 88 (unsafe to go this distance due to uncontrolled jerks at unexpected times in standing and walking) Walk 50 ft with 2 Turns(QC): 88 Walk 150 ft (QC): 88 Walking 10ft/uneven surface-QC: 88 Gait Level of Assist: 3 Gait Assistive Device: FWW Wheelchair Training Does the Pt Use a Wheelchair?: No Stair Training Stairs (FIM): 0 #of Steps: 0 1 Step (curb) (QC): 88 4 Steps (QC): 88 12 Steps (QC): 88 Balance Picking up an Object (QC): 88 Mental Status/Objective Comprehension: 7 Expression: 7 Social Interaction: 7 Problem Solvin Memory: 7 ADL-Treatment Feedin (noted increase diana. pt unable to scoop food or bring fork to mouth without all food spilling. ) Eating (QC): 1 Groomin (pt able to wash face with set up. noted trimmers. put unable to perform pral hygine secodnary to increase inez. pt unable to bring toothbrush to mouth. pt attempt to comb hair but unable to complete. noted decrease FMC) Oral Hygiene (QC): 1 Bathin Bathing Location: L Arm, R Arm, Chest, Abdomen Shower/Bathe Self (QC): 2 Upper Extremity Dressin (pt requried assist with all steps secodnay to increas trimmers. ) Upper Body Dressing (QC): 1 Lower Extremity Dressin Lower Body Dressing (QC): 1 On/Off Footwear (QC): 1 Toiletin Toileting Hygiene (QC): 1 Toilet/Commode Transfer: 1 (MAX A X 2 person assist ) Assessment/Plan Assessment and Plan Assess & Plan/Chief Complaint Assessment: Debility requiring IRF prior to returning back to [facility] Tremors-improved on magnesium Permanent pacemaker PAF CAD Chronic edema Chronic diarrhea GERD PINKY on CPAP HTN Gout HLP DM PVD CRI Chronic bilateral foot drop Plan: IRF protocols Consult PCP Dr Spaulding Home meds Consult Dr Sellers Monitor for falls Monitor diarrhea Mag supplement (1) Debility (2) Obesity (BMI 30.0-34.9) (3) Coarse tremors (4) Pacemaker (5) Falls (6) Hypertension (7) PAF (paroxysmal atrial fibrillation) (8) Hyperlipidemia (9) Edema (10) Diarrhea (11) Urinary retention SAMANTHA ALMAZAN DO August 22, 2018 08:38
--- NOTE | 2018-08-22 08:40 | Individualized Plan of Care ---
Individualized Plan of Care Rehab Nursing IPOC Order Admission Date August 21, 2018 at 09:52 Current Orders Orders Admission Order(Inpt,Obs,Sdc) (08/21/18 10:15) Vital Signs: Per Unit Policy ( 08,16,00 (08/21/18 10:15) Sub Master-Inpt Rehab Con (08/21/18 10:15) Rehab Nursing Orders-Ipoc (08/21/18 10:15) Physical Therapy Rehab Orders (08/21/18 10:15) Occupational Therapy Rehab Ord (08/21/18 10:15) Speech Therapy Rehab Orders (08/21/18 10:15) Intake & Output 06,14,22 (08/21/18 10:15) Precautions (Aru) (08/21/18 10:15) Weekly Weight (Lbs) WEEK (08/21/18 10:15) Rehab-Intensity Of Therapy (08/21/18 10:15) Initiate Admission Nursing Pro .admission (08/21/18 10:15) Acetaminophen Tablet (Tylenol Tablet) (08/21/18 10:15) Calcium Carbonate Chew Tablet (Antacid C (08/21/18 10:15) Docusate Sodium Capsule (Colace Capsule) (08/21/18 10:15) Loperamide Capsule (Imodium Capsule) (08/21/18 10:15) Melatonin Tablet (Melatonin Tablet) (08/21/18 10:15) Ondansetron Oral Dissolve Tab (Zofran (08/21/18 10:15) Ondansetron Injection (Zofran Injectio (08/21/18 10:15) Ambulate 08,12,20 (08/21/18 13:19) Sequential Compression Device 08,20 (08/21/18 13:19) Dvt/Vte Risk - Notifiy Physici 08 (08/21/18 13:19) General/Regular (08/21/18 Lunch) Consult Cardiology (08/21/18 13:55) Patient Visit (08/21/18 ) Speech Sound Lang Comp (08/21/18 ) Patient Visit (08/21/18 ) Pt Eval Moderate Complexity (08/21/18 ) Functional Activities, Ea 15 (08/21/18 ) Amylase (08/21/18 14:49) Lipase (08/21/18 14:49) Hs C Reactive Protein (08/21/18 14:49) Magnesium (08/21/18 14:49) Thyroid Stimulating Hormone (08/21/18 14:49) Free T4 (Free Thyroxine) (08/21/18 14:49) Erythrocyte Sedimentation Rate (08/21/18 14:49) Magnesium 1 Gm/100 Ml Ivpb (Magnesium [place] (08/21/18 17:00) Comprehensive Metabolic Panel (08/22/18 05:00) Cbc No Diff (08/22/18 05:00) Magnesium (08/22/18 05:00) Nursing Communication (Order) (08/21/18 17:18) Aspirin Chewable Tablet (Baby Aspirin Ch (08/22/18 09:00) Ekg Tracing (08/22/18 06:00) Code/Resuscitation (08/21/18 19:52) Accucheck Achs ACHS (08/21/18 19:52) Insulin Aspart (Novolog) (Novolog (Charg (08/21/18 21:00) Acetaminophen Tablet/Caplet (Tylenol T (08/22/18 07:00) Clopidogrel Tablet (Plavix Tablet) (08/22/18 20:00) Cyanocobalamin Tablet (Vitamin B-12 Tabl (08/22/18 07:00) Finasteride Tablet (Proscar Tablet) (08/22/18 07:00) Gabapentin Capsule/Tablet (Neurontin Cap (08/22/18 09:00) Tamsulosin Capsule (Flomax Capsule) (08/22/18 20:00) (Nf) Allopurinol (08/22/18 07:00) (Nf) Amlodipine Besylate (08/22/18 07:00) (Nf) Cholecalciferol (Vitamin D3) (Vitam (08/22/18 07:00) (Nf) L.Acidoph & Paracasei,B.Lactis (Pro (08/22/18 07:00) Lipase/Amylase/Protease Caps (Pancrelipa (08/22/18 07:00) Insulin Determir (Per Unit) (Levemir (Pe (08/22/18 21:00) Cbc No Diff (08/23/18 05:00) Cbc No Diff (08/25/18 05:00) Cbc No Diff (08/27/18 05:00) Comprehensive Metabolic Panel (08/23/18 05:00) Comprehensive Metabolic Panel (08/24/18 05:00) Comprehensive Metabolic Panel (08/25/18 05:00) Comprehensive Metabolic Panel (08/26/18 05:00) Comprehensive Metabolic Panel (08/27/18 05:00) Magnesium (08/23/18 05:00) Magnesium (08/24/18 05:00) Magnesium (08/25/18 05:00) Magnesium (08/26/18 05:00) Magnesium (08/27/18 05:00) Folic Acid (08/21/18 21:49) Vitamin B 12 (08/21/18 21:49) Vitamin D 25-Hydroxy (08/21/18 21:49) Communication For Respiratory (08/21/18 21:49) Allopurinol Tablet (Zyloprim Tablet) (08/22/18 07:00) Amlodipine Tablet (Norvasc Tablet) (08/22/18 07:00) Cholecalciferol Capsule/Tablet (Vitamin (08/22/18 07:00) Lactobacillus Acidophilus Cap (Acidophil (08/22/18 07:00) Clopidogrel Tablet (Plavix Tablet) (08/21/18 22:25) Acetaminophen Tablet/Caplet (Tylenol T (08/21/18 22:25) Tamsulosin Capsule (Flomax Capsule) (08/21/18 22:25) Insulin Determir (Per Unit) (Levemir (Pe (08/21/18 22:26) Allopurinol Tablet (Zyloprim Tablet) (08/21/18 22:26) Lactobacillus Acidophilus Cap (Acidophil (08/21/18 22:27) Consult Physician (08/22/18 11:09) Rehab Nursing Orders: Ongoing Assess. of Function Status, Bladder Management, Bladder Scan, Bladder Training, Bowel Management, Bowel Training, Disease Management & Educaiton, DVT Prophylaxis, Fall Prevention, Fluid/Electrolyte/Nutrition Mgmt, Infection Prevention, Medication Management & Education, Management of Risks & Complications, Pain Management, Patient/Family Support, Safety Management Intensity of Therapy to be met Patient to be seen: Min.3h per day/5 of 7d PT IPOC Problem List: Activity Tolerance, Functional Strength, Safety, Balance, Gait, Transfer, Bed Mobility Treatment Plan: Continue Plan of Care Bed Mobility, Education, Functional Activity Tejal, Functional Strength, Group Therapy, Gait, Safety, Therapeutic Exercise, Transfers Treatment Duration: Sep 08, 2018 Frequency: At least 5 of 7 days/Wk (IRF) Estimated Hrs Per Day: 1.5 hours per day OT IPOC Problems: Decreased Activ Tolerance, Decreased Safety Aware, Decreased UE Strength, Dependent Transfers, Impaired Bed Mobility, Impaired Cognition, Impaired Coordination, Impaired Funct Balance, Impaired I ADL's, Impaired Self- Care Skills OT Treatment, Training and Edu: Yes OT Problems pt presents with functional limitations affecting areas of ADLs/ functional transfers. biggest barrier: full body tremors. pt would benefit from skilled OT Services to increase independence with ADLS/ functional transfers. Plan of Care: ADL Retraining, Caregiver Training, Concurrent Therapy, Functional Mobility, Group Exercise/Act as Ind, UE Funct Exercise/Act, UE Neuromus Re-Ed/Coord Treatment Duration: Sep 18, 2018 Frequency: 5 times per week Estimated Hrs Per Day: 1.5 hours per day (60- 90 minutes per day) ST IPOC Speech Therapy Treatment Plan: Discontinue ST Treatment Duration: August 21, 2018 Frequency: 1 time per week Estimated Hrs Per Day: .25 hour per day Sub Master/Case Mgmt Sub Master/Case Managemen: Discharge Planning Dietitian/University Demonstrator Dietitian/University Demonstrator to monitor nutritional status and make changes and/or recommendations as needed and work with speech pathology on dietary upgrades as the occur. Physician IPOC Medical Issues being managed closely and that require the 24 hour availability of a physician: Chronic diarrhea and urinary retention with cardiac issues with pacemaker will require close monitoring Medical Issues: Bowel/Bladder Function, DVT Prophylaxis, Falls Precautions, Fluid/Electrolyte/Nutrition Balance, Infection Protection, Pain Management Brief Synthesis of Preadmission Screen, Post-Admission Evaluation, and Therapy Evaluations: PT will focus on ambulation and strengthening and fall risk prevention OT will focus on ADL's in order to remain independence at [place] Medical Prognosis: Good Anticipated Length of Stay: 7 days SAMANTHA ALMAZAN DO August 22, 2018 08:40
--- NOTE | 2018-08-22 09:43 | NUR ---
ACCIDENT EXAMINER here for pacemaker interrogation.
[2018-08-22] MEDS: ASPIRIN 81 MG CHEW (CHILDREN'S ASA) PO SCH (10:00)
[2018-08-22] MEDS: GABAPENTIN 100 MG (NEURONTIN) CAP PO SCH (10:00)
--- NOTE | 2018-08-22 10:19 | Physical Therapy Daily Note ---
PT Daily Note-Current Subjective Pt sitting up in bed upon arrival. PT & OT will co-treat for pt's debility and fatigue. Pt agrees to Therapy. Pain Location: No Pain Reported Mental Status Patient Orientation: Person, Confused, Place Attachments: Other-See Comments (B AFO ) Transfers Therapy Code Descriptions/Definitions Functional [place] Measure: 0=Not Assessed/NA 4=Minimal Assistance 1=Total Assistance 5=Supervision or Setup 2=Maximal Assistance 6=Modified [place] 3=Moderate Assistance 7=Complete [place] Therapy Quality Codes: 6 Independent with activity with or without an assistive device 5 Patient requires set up or clean up by helper. Patient completes activity by themselves 4 Supervision or touching assist (CGA). [place] provide cues , steadying assist 3 The helper provides less than half the effort to complete the activity 2 The helper provides more than half the effort to complete the activity 1 Dependent. The helper does all the effort to complete an activity 7 Patient refused to complete or attempt activity 9 The patient did not perform the activity before the current illness or injury 88 Not attempted due to Medical conditions or safety concerns Weight Bearing Right Lower Extremity: Right Full Weight Bearing Left Lower Extremity: Left Full Weight Bearing Gait Training Does the Patient Walk?: Yes Gait (FIM): 4 Distance (FIM): 3=150 ft Distance: 150' Walk 10 feet (QC): 4 Walk 50 ft with 2 Turns(QC): 4 Walk 150 ft (QC): 4 Gait Level of Assist: 4 Gait Persons Needed: 1 Gait Assistive Device: FWW OT followed pt with W/C in case pt fatigued but pt was able to ambulate the 150' Treatments Pt transfers from bed to W/C then W/C to shower bench. Pt is able to complete shower only needing assistance for reaching his back and feet which pt could not reach previous to hospital visit. Pt transfers back to W/C then Pt aids in dressing with encouragement from PT & OT. Pt stands from W/C and ambulates in hallway before returning to W/C to rest in room as he requested. Pt has all needs met. PT works on transfers, proper foot placement, balance & ambulation while OT works on ADLs including bathing & dressing as well as proper hand placement for transfers. Assessment Current Status: Good Progress Pt is resistant to Therapy and demonstrated confusion when PT & OT explain how to come tasks. After pt is reassured that he will will be given support, pt participated in Therapy better. PT Short Term Goals Short Term Goals Time Frame: Aug 28, 2018 Transfers (B,C,W/C) (FIM): 4 Gait (FIM): 4 Distance (FIM): 3=150 ft Gait Assistive Device: FWW PT Piping Designer Goals Halfway Goals PT Halfway Goals Time Frame: Sep 08, 2018 Transfers (B,C,W/C) (FIM): 6 Sit to Lying (QC): 6 Lying-Sitting on Side/Bed(QC): 6 Sit to Stand (QC): 6 Roll Left to Right (QC): 6 Chair/Bnt-ra-Frztb Xfer(QC): 6 Car Transfer (QC): 6 Does the Patient Walk: Yes Gait (FIM): 6 Gait distance (FIM): 3=150 ft Walk 10 feet (QC): 6 Walk 10ft-Uneven Surface(QC): 6 Walk 50ft with 2 Turns (QC): 6 Walk 150 ft (QC): 6 Gait Assistive Device: FWW Stairs (FIM): 5 (household) # of Steps: 4 1 Step (curb) (QC): 6 4 Steps (QC): 6 12 Steps (QC): 88 Picking up an Object (QC): 4 PT Plan Problem List Problem List: Activity Tolerance, Functional Strength, Safety, Transfer Treatment/Plan Treatment Plan: Continue Plan of Care Treatment Plan: Bed Mobility, Education, Functional Activity Tejal, Functional Strength, Group Therapy, Gait, Safety, Therapeutic Exercise, Transfers Treatment Duration: Sep 08, 2018 Frequency: At least 5 of 7 days/Wk (IRF) Estimated Hrs Per Day: 1.5 hours per day Patient and/or Family Agrees t: Yes Safety Risks/Education Patient Education: Transfer Techniques, Correct Positioning, W/C Management, Safety Issues Teaching Recipient: Patient Teaching Methods: Discussion Response to Teaching: Verbalize Understanding, Reinforcement Needed Time/GCodes Time In: 800 Time Out: 900 Total Billed Treatment Time: 60 Total Billed Treatment 1, FA x3 (45m) & GT (15m) G Codes Necessary: NERY Osorio JUMBO OPERATOR August 22, 2018 10:19
--- NOTE | 2018-08-22 10:52 | Occupational Ther Daily Note ---
OT Current Status-Daily Note Subjective pt laying in bed upon OT Arrival in no apparent distress.pt stated he did not have any tremors while eating breakfast. pt agreed to OT/ PT TX session with focus on increasing independence with ADLS. Co treat with PT due to the complexity of treatment that could not be fulfil by a clinical rehab specialist requiring need for skill of 2 clinicians to effectively and safely treat him. Mental Status/Objective Patient Orientation: Normal For Age Therapy Code Descriptions/Definitions Functional [place] Measure: 0=Not Assessed/NA 4=Minimal Assistance 1=Total Assistance 5=Supervision or Setup 2=Maximal Assistance 6=Modified [place] 3=Moderate Assistance 7=Complete [place] ADL-Treatment Therapy Code Descriptions/Definitions Functional [place] Measure: 0=Not Assessed/NA 4=Minimal Assistance 1=Total Assistance 5=Supervision or Setup 2=Maximal Assistance 6=Modified [place] 3=Moderate Assistance 7=Complete [place] Therapy Quality Codes: 6 Independent with activity with or without an assistive device 5 Patient requires set up or clean up by helper. Patient completes activity by themselves 4 Supervision or touching assist (CGA). [place] provide cues , steadying assist 3 The helper provides less than half the effort to complete the activity 2 The helper provides more than half the effort to complete the activity 1 Dependent. The helper does all the effort to complete an activity 7 Patient refused to complete or attempt activity 9 The patient did not perform the activity before the current illness or injury 88 Not attempted due to Medical conditions or safety concerns pt perform supine to sit with MIN A and transferred from bed to chair with MIN A using RW. pt then perform shower transfers with use of GB and MARIA ELENA requiring hand over hand placement for correct technique. pt education on LHS but did not demo use this DATE. pt agreed to attempt Saturday. pt resistant toward new education throughout session stated "You need to just do it for me." during shower pt required assist with back, buttock, and João feet. pt transferred from shower to w/c with MIN A using GB for safety. pt required MAX encouragement to complete dressing. pt contraindicated PLOF throughout session. pt would stated "staff gets me bath and dressed, I pay $2,00 a month, they do it for me" then would state "I am able to do everything my self except my shoes" pt education on use of AE (central office operator supervisor) pt refused education at first then attempt good use of AE. pt required assist with donning João socks and pulling up pants. pt demo ability to stand with PT while OT gave curing/ proper technique to pull up pants. pt REF to attempt at first required MAX encouragement. pt required assist o pull up pants past hips. post ADL pt perform functional mobility in pena using RW in prep fro grocery shopping then then returns to room resting in w/c, all needs wale, call light within reach. PT addressed gross movements, proper LE placement/ sequencing, & ambulation whi le OT addressed functional task within ADLs including bathing & dressing as well as proper hand placement/ sequencing for transfers. Education OT Patient Education: Disease process, Energy conservation, Modified ADL techni ques, Progress toward Goal/Update tx plan, Purpose of tx/functional activities, Reviewed precautions, Safety issues, Transfer techniques, Use of adapted equipment Teaching Recipient: Patient Teaching Methods: Demonstration, Discussion Response to Teaching: Verbalize Understanding, Return Demonstration OT Short Term Goals Short Term Goals Eating(FIM): 4 Grooming(FIM): 4 Bathing(FIM): 4 Bathing Location: L Arm, R Arm, L Upper Leg, R Upper Leg, L Lower Leg (inc luding foot), R Lower Leg (including foot), Chest, Abdomen, Buttocks, Perineal Area Upper Body Dressing(FIM): 4 Lower Body Dressing(FIM): 4 Toileting(FIM): 4 Transfers (B,C,W/C) (FIM): 4 Toilet/Commode Transfer(FIM): 4 Tub Transfer(FIM): 4 Shower Transfer(FIM): 4 1=Demonstrate adherence to instructed precautions during ADL tasks. 2=Patient will verbalize/demonstrate understanding of assistive devices/modifications for ADL. 3=Patient will improve strength/tolerance for activity to enable patient to perform ADL's. OT Librarian Assistant Goals Shelter Goals Eating (FIM): 6 Eating (QC): 6 Groomin Oral Hygiene (QC): 6 Bathing(FIM): 6 Bathing Location: L Arm, R Arm, L Upper Leg, R Upper Leg, L Lower Leg (including foot), R Lower Leg (including foot), Chest, Abdomen, Buttocks, Perineal Area Shower/Bathe Self (QC): 6 Upper Body Dressing(FIM): 6 Upper Body Dressing (QC): 6 Lower Body Dressing(FIM): 6 Lower Body Dressing (QC): 6 On/Off Footwear (QC): 6 Toileting(FIM): 6 Toileting Hygiene (QC): 6 Transfers (B,C,W/C) (FIM): 6 Toilet/Commode Transfer(FIM): 6 Toilet/Commode Transfer (QC): 6 Shower Transfer(FIM): 6 Comprehension(FIM): 6 Expression (FIM): 6 Social Interaction(FIM): 6 Problem Solving(FIM): 6 Memory(FIM): 6 Additional Goals: 1-Demonstrate ADL Tasks, 2-Verbalize Understanding, 3- ImproveStrength/Tejal 1=Demonstrate adherence to instructed precautions during ADL tasks. 2=Patient will verbalize/demonstrate understanding of assistive devices/modifications for ADL. 3=Patient will improve strength/tolerance for activity to enable patient to perform ADL's. OT Education/Plan Problem List/Assessment pt presents with functional limitations affecting areas of ADLs/ functional montalvo sfers. biggest barrier: full body tremors. pt would benefit from skilled OT Services to increase independence with ADLS/ functional transfers. Discharge Recommendations Plan/Recommendations: Continue POC Treatment Plan/Plan of Care Treatment,Training & Education: Yes Patient would benefit from OT for education, treatment and training to promote independence in ADL's, mobility, safety and/or upper extremity function for ADL's. Plan of Care: ADL Retraining, Caregiver Training, Concurrent Therapy, Functional Mobility, Group Exercise/Act as Ind, UE Funct Exercise/Act, UE Neuromus Re-Ed/Coord Treatment Duration: Sep 18, 2018 Frequency: 5 times per week Estimated Hrs Per Day: 1.5 hours per day (60- 90 minutes per day) Rehab Potential: Good Time/GCodes Start Time: 08:00 Stop Time: 09:00 Billed Treatment Time ADL 60 minutes, 4 units (cO-treat with PT) [place] OT August 22, 2018 10:52
--- NOTE | 2018-08-22 11:13 | NUR ---
[employer] rep here for pacemaker interrogation. States that she will call results to Dr. Sellers.
--- NOTE | 2018-08-22 11:14 | NUR ---
Patient was scheduled to have a Colonoscopy on 08/27/18. Per Dr. Spaulding, consult Dr. Carney RE: Colonoscopy.
--- NOTE | 2018-08-22 11:40 | NUR ---
Call to Dr. Carney to notify of consult. Was in surgery. Will call back.
--- NOTE | 2018-08-22 12:32 | NUR ---
Spoke with Dr. Spaulding's RN... who says she spoke with RT Irene. Irene states that we are unable to do EEG while patient is inpatient. Patient to have EEG at [facility] as outpatient. Dr. Spaulding aware.
--- NOTE | 2018-08-22 14:25 | NUR ---
Adrian Cantrell here to see patient for Dr. Carney.
--- NOTE | 2018-08-22 14:46 | Progress Note-Cardiology ---
Cardiology SOAP Progress Note Subjective: Involuntary movements have improved No cp or palp or syncope Some gen weakness and tiredness Objective: I&O/Vital Signs 08/22/18 08/22/18 05:08 09:00 Temp 98.0 Pulse 80 Resp 18 B/P (MAP) 120/72 (88) Pulse Ox 94 O2 Delivery Room Air Room Air 08/22/18 00:00 Intake Total 840 ml Output Total 1400 ml Balance -560 ml Weight (Pounds): 217 Weight (Ounces): 0.3 Weight (Calculated Kilograms): 98.075629 Constitutional: AAO x 3, well-developed, well-nourished Respiratory: chest expansion is symmetric, chest is bilaterally symmetric, lungs clear to auscultation Cardiovascular: regular rate-rhythm; No JVD; S1 and S2 Gastrointestional: No tender; soft, round, audible bowel sounds Extremities: other (braces in place bilat d/t chronic foot drop), no lower extremity edema bilateral Neurologic/Psychiatric: oriented x 3, grossly intact, power is 5/5 both on sides Skin: No rash on exposed areas, No ulcerations on exposed areas Results/Procedures: Labs Laboratory Tests 08/21/18 20:47: Glucometer 184H 08/22/18 04:48: Glucometer 133H 08/22/18 05:55: White Blood Count 6.8, Red Blood Count 3.80L, Hemoglobin 11.5L, Hematocrit 35L, Mean Corpuscular Volume 91, Mean Corpuscular Hemoglobin 30, Mean Corpuscular Hemoglobin Concent 33, Red Cell Distribution Width 15.1H, Platelet Count 242, Mean Platelet Volume 9.6, Sodium Level 138, Potassium Level 3.6, Chloride Level 107, Carbon Dioxide Level 25, Anion Gap 6, Blood Urea Nitrogen 21H, Creatinine 1.06, Estimat Glomerular Filtration Rate > 60, BUN/Creatinine Ratio 20, Glucose Level 125H, Calcium Level 8.6, Corrected Calcium 9.2, Magnesium Level 2.2, Total Bilirubin 0.4, Aspartate Amino Transf (AST/SGOT) 26, Alanine Aminotransferase (ALT/SGPT) 55, Alkaline Phosphatase 48, Total Protein 5.5L, Albumin 3.2 08/22/18 11:19: Glucometer 155H A/P: Assessment: Involuntary movements of jaw, hands, arms with gen muscle weakness of undetermined etiology. This does not appear to be of cardiac etiology PPM implant at [facility] in June 2017 for marked bradycardia, followed by Dr Torres in [place]. Interrogated today (08/22/18) and found to be functioning normally in the DVIR mode H/O PAF documented during hospitalization of June 2017 at [facility] (in the setting of ac renal failure) - Eliquis started at that time, but was stopped during hospitalization at [facility] (Dr Torres) Coronary artery disease with history of angioplasty and stenting of the mid left anterior descending and the right coronary artery. Cardiac cath of January 01, 2017: 70-80% mid vessel stenosis of fhe LAD to which successful stenting was ca rried out with a Resolute 2.25 x 22 mm stent deployed at 16 atmospheres with reduction of stenosis to 0%. A more proximal LAD stent is widely patent. A very small caliber first diagonal branch is jailed by the stnet and has 70% ostial stenosis but is not amenable to intervention d/t small vessel size. 50% mid vessel stenosis left cx artery with a FFR of greater than 0.9, indicating hemodynamic insignificance. Patent stents in the prox and mid RCA with proximal stent exhibiting approx 40-50% in stent restenosis. Mild to mod LVEDP elevation. MPI of 11-08-15 did not show myocardial ischemia or infarction and LVEF was 72% History of isolated premature atrial and ventricular contractions. Mild carotid artery disease per carotid ultrasonography of November 2015. Chronic intermittent leg swelling, likely related to venous insufficiency, currently controlled Chronic intermittent diarrhea of undetermined etiology, Degenerative joint disease. Gastroesophageal reflux. Sleep apnea, being treated with C-PAP therapy. Hypertension, under good control. Gout. Hyperlipidemia being treated with lovastatin. Borderline maturity onset diabetes mellitus. Obesity with a body mass index of approximately 31 Chronic poor balance being followed by Dr. Spaulding PAD. Scattered atherosclerotic disease of the bilateral lower extremity arterial systems, no hemodynamically significant stenosis per bilateral lower extremity arterial Doppler from 04/30/2012. U/S from 11-24-14 showed no sonographic evidence for hemodynamically significant stenosis or arterial occlusion within either leg. Seg pressures on 05/24/17 WNL Ac renal failure in June 2017. 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
--- NOTE | 2018-08-22 15:01 | Therapy Group Daily Note ---
Therapy Daily Group Note Patient Education Topic Exercises Exercises LE Seated Exercise, UE Exercise Session Ratio (pt:therapist): 3:1 Goal of Session: Education on ARU Expectations, UE/LE Strengthing Goal Met for this Session: Yes Pt Benefit of Group: Contributions to Others, Increased Functional Strength, Improved Cognition, Recognition of Peers, Socialization Other/Notes Pt propelled w/c to OT/PT group. Group consisted of introductions (name, place living, personal exercises), socialization, ARU description/expectations, pt lead UE/LE seated exercises and education benefits of exercise. Pt introduced self appropriately and actively listened to peers. Pt was able to roll large dice to select amount of reps for chosen exercise then lead group. Pt acknowledge understanding of educational topic by voicing personal exercises. After therapy, pt sitting in recliner with call light/phone in reach. All needs met in room. Start Time: 13:00 Stop Time: 14:05 Total Billed Treatment Time: 65 Total Billed Treatment 1-GRP MATTHEW TOPETE August 22, 2018 15:01
[2018-08-22 16:19] VITALS: BP 121/66
[2018-08-22] MEDS: TAMSULOSIN 0.4 MG (FLOMAX) CAP PO SCH (20:30)
[2018-08-22] MEDS: CLOPIDOGREL 75 MG (PLAVIX) TABLET PO SCH (20:30)
[2018-08-23 05:03] LABS: HEMOGLOBIN 11.7 G/DL (13.3-17.7); MEAN PLATELET VOLUME 9.2 FL (7.4-10.4); RED CELL DISTRIBUTION WIDTH 14.8 % (10.0-14.5); WHITE BLOOD COUNT 6.5 10^3/uL (4.3-11.0)
[2018-08-23 05:28] LABS: ALANINE AMINOTRANSFERASE 48 U/L (0-55); ALBUMIN 3.2 GM/DL (3.2-4.5); ALKALINE PHOSPHATASE 45 U/L (40-136); BILIRUBIN,TOTAL 0.4 MG/DL (0.1-1.0); BUN/CREATININE RATIO 24; CALCIUM 8.5 MG/DL (8.5-10.1); CARBON DIOXIDE 23 MMOL/L (21-32); CHLORIDE 107 MMOL/L (98-107); CREATININE SERUM 1.08 MG/DL (0.60-1.30); GFR ESTIMATED > 60; GLUCOSE 137 MG/DL (70-105); MAGNESIUM 2.1 MG/DL (1.8-2.4); POTASSIUM 3.7 MMOL/L (3.6-5.0); SODIUM 138 MMOL/L (135-145); TOTAL PROTEIN 5.7 GM/DL (6.4-8.2)
[2018-08-23] MEDS: inSUlin ASPART (NovoLOG) 1 UNIT/0.01 ML (CHARGE PER UNIT) SC SCH ×4 (05:50→21:00)
[2018-08-23] MEDS: LACTOBACILLUS ACIDOPHILUS (PROBIOTIC) CAPSULE PO SCH ×2 (06:12→20:59)
[2018-08-23] MEDS: ALLOPURINOL 100 MG (ZYLOPRIM) TAB PO SCH ×2 (06:12→20:59)
[2018-08-23] MEDS: ACETAMINOPHEN 325 MG TABLET PO SCH ×2 (06:12→21:00)
[2018-08-23] MEDS: FINASTERIDE (PROSCAR) 5 MG TAB PO SCH (06:12)
[2018-08-23] MEDS: VITAMIN D3 1,000 UNITS (CHOLECALCIFEROL) TABLET PO SCH (06:12)
[2018-08-23] MEDS: amLODIPine 5 MG (NORVASC) TAB PO SCH (06:12)
[2018-08-23] MEDS: CYANOCOBALAMIN 1,000 MCG (VITAMIN B-12) TABLET PO SCH (06:13)
[2018-08-23] MEDS: LIPASE/AMYLASE/PROTEASE (PANCRELIPASE) 5,000 UNITS CAP PO SCH ×3 (06:13→16:16)
[2018-08-23 06:14] VITALS: BP 131/75
[2018-08-23] MEDS: GABAPENTIN 100 MG (NEURONTIN) CAP PO SCH (09:27)
--- NOTE | 2018-08-23 11:44 | PM&R Progress Note ---
Subjective HPI/CC On Admission Date Seen by Provider: Aug 23, 2018 Time Seen by Provider: 11:00 CC: Debility HPI: This is a an elderly patient [address] Spaulding who was admitted to the inpatient rehab unit directly from ER due to severe weakness and debility. He resides at [facility] normally for the past five years. His accompanies him today. Apparently he had severe diarrhea and profound de hydration requiring two ER hospital visits which resulted in IV fluids and Flagyl initiated with good resolution of the diarrhea of which he actually completed but presented to the ER due to severe weakness. Dr. Spaulding recommended inpatient rehab unit and he was accepted after evaluation and he wi ll be placed in the inpatient rehab protocol with intensive therapies in order to return back to [facility]. I did visit with his and his son will be in to see him later. 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 Overall he denies any pain except where the catheter was placed in order to get a urine sample. I did review his ER labs and imaging scans. His prior level of functioning was moderate independent at [facility]. Subjective/Events-last exam Patient participating with therapies Patient was a bit cranky last evening but now much improved Walking with assistance Needs colonoscopy for diarrhea and that is scheduled for Saturday by Dr Rommel Leal and ASA held in prep for Colonoscopy Magnesium really helped his tremors Appreciate Dr Marlo Spaulding saw patient Checked meds and labs Slept well last night Conferred with special delivery clerk of Systems General: Fatigue Gastrointestinal: Diarrhea Objective Exam Vital Signs Vital Signs Date Time Temp Pulse Resp B/P (MAP) Pulse Ox O2 Delivery O2 Flow Rate FiO2 08/23/18 09:00 Room Air 08/23/18 06:14 97.7 80 18 131/75 (93) 95 Capillary Refill : General Appearance: No Apparent Distress, WD/WN, Chronically ill, Obese HEENT: PERRL/EOMI, Normal ENT Inspection, Pharynx Normal, Moist Mucous Membranes Neck: Full Range of Motion, Normal Inspection, Non Tender, Supple Respiratory: Chest Non Tender, Lungs Clear, Normal Breath Sounds, No Accessory Muscle Use, No Respiratory Distress Cardiovascular: Regular Rate, Rhythm, No Edema, No Gallop, No JVD, No Murmur Gastrointestinal: Normal Bowel Sounds, No Organomegaly, No Pulsatile Mass, Non Tender, Soft Back: Normal Inspection, No CVA Tenderness, No Vertebral Tenderness Extremity: Normal Capillary Refill, Normal Inspection, Normal Range of Motion, Non Tender, No Calf Tenderness, No Pedal Edema Neurologic/Psychiatric: Alert, Oriented x3, Normal Mood/Affect, Motor Weakness (generalized weakness all extremities) Skin: Normal Color, Warm/Dry Lymphatic: No Adenopathy Results/Procedures Lab Laboratory Tests 08/23/18 04:55 Patient resulted labs reviewed. FIM Transfers Therapy Code Descriptions/Definitions Functional Guthrie Measure: 0=Not Assessed/NA 4=Minimal Assistance 1=Total Assistance 5=Supervision or Setup 2=Maximal Assistance 6=Modified G[place]rie 3=Moderate Assistance 7=Complete G[place]rie Therapy Quality Codes: 6 Independent with activity with or without an assistive device 5 Patient requires set up or clean up by helper. Patient completes activity by themselves 4 Supervision or touching assist (CGA). [place] provide cues , steadying assist 3 The helper provides less than half the effort to complete the activity 2 The helper provides more than half the effort to complete the activity 1 Dependent. The helper does all the effort to complete an activity 7 Patient refused to complete or attempt activity 9 The patient did not perform the activity before the current illness or injury 88 Not attempted due to Medical conditions or safety concerns Transfers (B, C, W/C) (FIM): 2 Scootin Roll Left to Right (QC): 3 Supine to/from Sit: 2 (assist to move both legs andto lift trunk) Sit to/from Stand: 2 (max assist to come to a stand with skilled cues for hand placement.) Sit to Lying (QC): 3 Sit to Stand (QC): 2 Chair/Pse-lv-Rvjag Xfer(QC): 2 (max assist due to "jerky" movements in standing; unsafe to stand without assist.) Car Transfer (QC): 2 Gait Training Does the Patient Walk?: Yes Gait (FIM): 4 Distance (FIM): 3=150 ft Distance: 150' Walk 10 feet (QC): 4 Walk 50 ft with 2 Turns(QC): 4 Walk 150 ft (QC): 4 Walking 10ft/uneven surface-QC: 88 Gait Level of Assist: 4 Gait Persons Needed: 1 Gait Assistive Device: FWW Wheelchair Training Does the Pt Use a Wheelchair?: No Stair Training Stairs (FIM): 0 #of Steps: 0 1 Step (curb) (QC): 88 4 Steps (QC): 88 12 Steps (QC): 88 Balance Picking up an Object (QC): 88 Mental Status/Objective Comprehension: 7 Expression: 7 Social Interaction: 7 Problem Solvin Memory: 7 ADL-Treatment Feedin (noted increase diana. pt unable to scoop food or bring fork to mouth without all food spilling. ) Eating (QC): 1 Groomin (pt able to wash face with set up. noted trimmers. put unable to perform pral hygine secodnary to increase inez. pt unable to bring toothbrush to mouth. pt attempt to comb hair but unable to complete. noted decrease FMC) Oral Hygiene (QC): 1 Bathin Bathing Location: L Arm, R Arm, Chest, Abdomen Shower/Bathe Self (QC): 2 Upper Extremity Dressin (pt requried assist with all steps secodnay to increas trimmers. ) Upper Body Dressing (QC): 1 Lower Extremity Dressin Lower Body Dressing (QC): 1 On/Off Footwear (QC): 1 Toiletin Toileting Hygiene (QC): 1 Toilet/Commode Transfer: 1 (MAX A X 2 person assist ) Assessment/Plan Assessment and Plan Assess & Plan/Chief Complaint Assessment: Debility requiring IRF prior to returning back to [facility] Tremors-improved on magnesium Permanent pacemaker PAF CAD Chronic edema Chronic diarrhea GERD PINKY on CPAP HTN Gout HLP DM PVD CRI Chronic bilateral foot drop Plan: IRF protocols Consult PCP Dr Spaulding [place] meds Consult Dr Sellers Monitor for falls Monitor diarrhea and Colonoscopy scheduled for Wed by Dr Rommel Miller supplement (1) Debility (2) Obesity (BMI 30.0-34.9) (3) Coarse tremors (4) Pacemaker (5) Falls (6) Hypertension (7) PAF (paroxysmal atrial fibrillation) (8) Hyperlipidemia (9) Edema (10) Diarrhea (11) Urinary retention SAMANTHA ALMAZAN DO Aug 23, 2018 11:44
--- NOTE | 2018-08-23 12:57 | Physical Therapy Daily Note ---
PT Daily Note-Current Subjective Pt agreeable to PT session Appearance 1st attempt, pt in bathroom stating "I may be a while" and requesting later therapy session 2nd attempt, upon arrival, pt sitting up in w/c, agreeable to PT session, awake and alert At end of session, pt sitting in w/c per pt request, call light, phone and b edside table within reach Mental Status Patient Orientation: Person, Eyes Open Transfers Therapy Code Descriptions/Definitions Functional Daisy Measure: 0=Not Assessed/NA 4=Minimal Assistance 1=Total Assistance 5=Supervision or Setup 2=Maximal Assistance 6=Modified Daisy 3=Moderate Assistance 7=Complete Daisy Therapy Quality Codes: 6 Independent with activity with or without an assistive device 5 Patient requires set up or clean up by helper. Patient completes activity by themselves 4 Supervision or touching assist (CGA). [place] provide cues , steadying assist 3 The helper provides less than half the effort to complete the activity 2 The helper provides more than half the effort to complete the activity 1 Dependent. The helper does all the effort to complete an activity 7 Patient refused to complete or attempt activity 9 The patient did not perform the activity before the current illness or injury 88 Not attempted due to Medical conditions or safety concerns Transfers (B, C, W/C) (FIM): 5 Sit to/from Stand: 5 instruction required for safety and hand placement most transitions performed this session Weight Bearing Right Lower Extremity: Right Full Weight Bearing Left Lower Extremity: Left Full Weight Bearing Gait Training Does the Patient Walk?: Yes Gait (FIM): 2 Distance (FIM): 9=598-82 ft Distance: 100 x2 Gait Level of Assist: 4 (CGA provided for safety ) Gait Assistive Device: FWW (barriatric) slow steady pace requiring standing and sitting rest break due to fatigue and pt c/o weakness. decreased step length and height Treatments transfer, safety, education, gait, functional mobility, activity tolerance Assessment Current Status: Good Progress PT Short Term Goals Short Term Goals Time Frame: Aug 28, 2018 Transfers (B,C,W/C) (FIM): 4 Gait (FIM): 4 Distance (FIM): 3=150 ft Gait Assistive Device: FWW PT Shelter Goals Shelter Goals PT Shelter Goals Time Frame: Sep 08, 2018 Transfers (B,C,W/C) (FIM): 6 Sit to Lying (QC): 6 Lying-Sitting on Side/Bed(QC): 6 Sit to Stand (QC): 6 Roll Left to Right (QC): 6 Chair/Ewp-ag-[place]iz[place] Xfer(QC): 6 Car Transfer (QC): 6 Does the Patient Walk: Yes Gait (FIM): 6 Gait distance (FIM): 3=150 ft Walk 10 feet (QC): 6 Walk 10ft-Uneven Surface(QC): 6 Walk 50ft with 2 Turns (QC): 6 Walk 150 ft (QC): 6 Gait Assistive Device: FWW Stairs (FIM): 5 (household) # of Steps: 4 1 Step (curb) (QC): 6 4 Steps (QC): 6 12 Steps (QC): 88 Picking up an Object (QC): 4 PT Plan Treatment/Plan Treatment Plan: Continue Plan of Care Treatment Plan: Bed Mobility, Education, Functional Activity Tejal, Functional Strength, Group Therapy, Gait, Safety, Therapeutic Exercise, Transfers Treatment Duration: Sep 08, 2018 Frequency: At least 5 of 7 days/Wk (IRF) Estimated Hrs Per Day: 1.5 hours per day Patient and/or Family Agrees t: Yes Safety Risks/Education Patient Education: Gait Training, Transfer Techniques, Safety Issues Teaching Recipient: Patient Teaching Methods: Discussion Response to Teaching: Verbalize Understanding, Return Demonstration, Reinforcement Needed Time/GCodes Time In: 910 Time Out: 923 Total Billed Treatment Time: 13 Total Billed Treatment 1 visit, GT x 1 unit CEE DENIS PTA Aug 23, 2018 12:57
--- NOTE | 2018-08-23 15:04 | NUR ---
Matheus (Venkatesh) is a 83yo male currently inpatient at [facility] on the ARU for weakness and dehydration. Venkatesh is A&O X 4 and has been pleasant and coorporative with staff today. Venkatesh denies any pain and is able to report needs appropriately to staff. Venkatesh is continent of bowel and bladder and walks to the bathroom X1 assist with walker. Patient is scheduled to have a Colonoscopy on Saturday, August [address] Carney. Currently, both Aspirin and Plavix are on hold for procedure, Dr. Pérez is aware. No further issues noted with patient, this nurse will continue to monitor patient.
--- NOTE | 2018-08-23 16:27 | Progress Note-Cardiology ---
Cardiology SOAP Progress Note Subjective: No recurrence of involuntary movements No cp or palp or syncope or shortness of breath Objective: I&O/Vital Signs 08/23/18 08/23/18 06:14 09:00 Temp 97.7 Pulse 80 Resp 18 B/P (MAP) 131/75 (93) Pulse Ox 95 O2 Delivery Room Air Room Air 08/23/18 00:00 Intake Total 780 ml Output Total 850 ml Balance -70 ml Weight (Pounds): 217 Weight (Ounces): 0.3 Weight (Calculated Kilograms): 98.354098 Constitutional: AAO x 3, well-developed, well-nourished Respiratory: chest expansion is symmetric, chest is bilaterally symmetric, lungs clear to auscultation Cardiovascular: regular rate-rhythm; No JVD; S1 and S2 Gastrointestional: No tender; soft, round, audible bowel sounds Extremities: other (braces in place bilat d/t chronic foot drop), no lower extremity edema bilateral Neurologic/Psychiatric: oriented x 3, grossly intact, power is 5/5 both on sides Skin: No rash on exposed areas, No ulcerations on exposed areas Results/Procedures: Labs Laboratory Tests 08/22/18 20:30: Glucometer 150H 08/23/18 04:55: White Blood Count 6.5, Red Blood Count 3.83L, Hemoglobin 11.7L, Hematocrit 35L, Mean Corpuscular Volume 92, Mean Corpuscular Hemoglobin 31, Mean Corpuscular Hemoglobin Concent 33, Red Cell Distribution Width 14.8H, Platelet Count 230, Mean Platelet Volume 9.2, Sodium Level 138, Potassium Level 3.7, Chloride Level 107, Carbon Dioxide Level 23, Anion Gap 8, Blood Urea Nitrogen 26H, Creatinine 1.08, Estimat Glomerular Filtration Rate > 60, BUN/Creatinine Ratio 24, Glucose Level 137H, Calcium Level 8.5, Corrected Calcium 9.1, Magnesium Level 2.1, Total Bilirubin 0.4, Aspartate Amino Transf (AST/SGOT) 21, Alanine Aminotransferase (ALT/SGPT) 48, Alkaline Phosphatase 45, Total Protein 5.7L, Albumin 3.2 08/23/18 05:32: Glucometer 128H 08/23/18 11:10: Glucometer 165H 08/23/18 15:49: Glucometer 106 Laboratory Tests 08/22/18 05:55 08/23/18 04:55 A/P: Assessment: Involuntary movements of jaw, hands, arms with gen muscle weakness of undetermined etiology. This does not appear to be of cardiac etiology PPM implant at [facility] in June 2017 for marked bradycardia, followed by Dr Torres in [place], [place]. Interrogated today (08/22/18) and found to be functioning normally in the DVIR mode H/O PAF documented during hospitalization of June 2017 at [facility] (in the setting of ac renal failure) - Eliquis started at that time, but was stopped during hospitalization at [facility] (Dr Torres) Coronary artery disease with history of angioplasty and stenting of the mid left anterior descending and the right coronary artery. Cardiac cath of January 01, 2017: 70-80% mid vessel stenosis of fhe LAD to which successful stenting was carried out with a Resolute 2.25 x 22 mm stent deployed at 16 atmospheres with reduction of stenosis to 0%. A more proximal LAD stent is widely patent. A very small caliber first diagonal branch is jailed by the stnet and has 70% ostial stenosis but is not amenable to intervention d/t small vessel size. 50% mid vessel stenosis left cx artery with a FFR of greater than 0.9, indicating hemodynamic insignificance. Patent stents in the prox and mid RCA with proximal stent exhibiting approx 40-50% in stent restenosis. Mild to mod LVEDP elevation. MPI of 11-08-15 did not show myocardial ischemia or infarction and LVEF was 72% History of isolated premature atrial and ventricular contractions. Mild carotid artery disease per carotid ultrasonography of November 2015. Chronic intermittent leg swelling, likely related to venous insufficiency, currently controlled Chronic intermittent diarrhea of undetermined etiology, Degenerative joint disease. Gastroesophageal reflux. Sleep apnea, being treated with C-PAP therapy. Hypertension, under good control. Gout. Hyperlipidemia being treated with lovastatin. Borderline maturity onset diabetes mellitus. Obesity with a body mass index of approximately 31 Chronic poor balance being followed by Dr. Spaulding PAD. Scattered atherosclerotic disease of the bilateral lower extremity arterial systems, no hemodynamically significant stenosis per bilateral lower extremity arterial Doppler from 04/30/2012. U/S from 11-24-14 showed no sonographic evidence for hemodynamically significant stenosis or arterial occlusion within either leg. Seg pressures on 05/24/17 WNL Ac renal failure in June 2017. 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
[2018-08-23 17:30] VITALS: BP 131/78
[2018-08-23] MEDS: TAMSULOSIN 0.4 MG (FLOMAX) CAP PO SCH (21:00)
[2018-08-24] MEDS: inSUlin ASPART (NovoLOG) 1 UNIT/0.01 ML (CHARGE PER UNIT) SC SCH ×4 (05:52→20:59)
[2018-08-24] MEDS: amLODIPine 5 MG (NORVASC) TAB PO SCH (06:09)
[2018-08-24] MEDS: ACETAMINOPHEN 325 MG TABLET PO SCH ×2 (06:09→20:44)
[2018-08-24] MEDS: VITAMIN D3 1,000 UNITS (CHOLECALCIFEROL) TABLET PO SCH (06:09)
[2018-08-24] MEDS: FINASTERIDE (PROSCAR) 5 MG TAB PO SCH (06:09)
[2018-08-24] MEDS: ALLOPURINOL 100 MG (ZYLOPRIM) TAB PO SCH ×2 (06:09→20:43)
[2018-08-24] MEDS: CYANOCOBALAMIN 1,000 MCG (VITAMIN B-12) TABLET PO SCH (06:09)
[2018-08-24] MEDS: LACTOBACILLUS ACIDOPHILUS (PROBIOTIC) CAPSULE PO SCH ×2 (06:09→20:43)
[2018-08-24] MEDS: LIPASE/AMYLASE/PROTEASE (PANCRELIPASE) 5,000 UNITS CAP PO SCH ×3 (06:09→16:59)
[2018-08-24 06:21] VITALS: BP 131/78
[2018-08-24 07:46] LABS: ALANINE AMINOTRANSFERASE 44 U/L (0-55); ALBUMIN 3.4 GM/DL (3.2-4.5); ALKALINE PHOSPHATASE 47 U/L (40-136); BILIRUBIN,TOTAL 0.7 MG/DL (0.1-1.0); BUN/CREATININE RATIO 20; CALCIUM 8.7 MG/DL (8.5-10.1); CARBON DIOXIDE 24 MMOL/L (21-32); CHLORIDE 106 MMOL/L (98-107); CREATININE SERUM 1.06 MG/DL (0.60-1.30); GFR ESTIMATED > 60; GLUCOSE 130 MG/DL (70-105); MAGNESIUM 1.9 MG/DL (1.8-2.4); POTASSIUM 3.9 MMOL/L (3.6-5.0); SODIUM 139 MMOL/L (135-145); TOTAL PROTEIN 5.8 GM/DL (6.4-8.2)
[2018-08-24] MEDS: GABAPENTIN 100 MG (NEURONTIN) CAP PO SCH (08:21)
--- NOTE | 2018-08-24 11:24 | PM&R Progress Note ---
Subjective HPI/CC On Admission Date Seen by Provider: Aug 24, 2018 Time Seen by Provider: 11:10 CC: Debility HPI: This is a an elderly patient [address] Spaulding who was admitted to the inpatient rehab unit directly from ER due to severe weakness and debility. He resides at [facility] normally for the past five years. His accompanies him today. Apparently he had severe diarrhea and profound de hydration requiring two ER hospital visits which resulted in IV fluids and Flagyl initiated with good resolution of the diarrhea of which he actually completed but presented to the ER due to severe weakness. Dr. Spaulding recommended inpatient rehab unit and he was accepted after evaluation and he wi ll be placed in the inpatient rehab protocol with intensive therapies in order to return back to [facility]. I did visit with his and his son will be in to see him later. 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 Overall he denies any pain except where the catheter was placed in order to get a urine sample. I did review his ER labs and imaging scans. His prior level of functioning was moderate independent at [facility]. Subjective/Events-last exam Patient participating with therapies yesterday very well Patient seems to be doing better today Glucose 258 after eating pancakes Walking with assistance Needs colonoscopy for diarrhea and that is scheduled for Saturday by Dr Rommel Leal and ASA held in prep for Colonoscopy Magnesium really helped his tremors and he denies any recurrence of those now Appreciate Dr Sellers's input Dr Spaulding saw patient Checked meds and labs Slept well last night Conferred with desk director of Systems General: Fatigue Gastrointestinal: Diarrhea Neurological: Weakness, Numbness, Incoordination Objective Exam Vital Signs Vital Signs Date Time Temp Pulse Resp B/P (MAP) Pulse Ox O2 Delivery O2 Flow Rate FiO2 08/24/18 17:23 98.2 80 20 111/71 (84) 95 Room Air Capillary Refill : General Appearance: No Apparent Distress, WD/WN, Chronically ill, Obese HEENT: PERRL/EOMI, Normal ENT Inspection, Pharynx Normal, Moist Mucous Membranes Neck: Full Range of Motion, Normal Inspection, Non Tender, Supple Respiratory: Chest Non Tender, Lungs Clear, Normal Breath Sounds, No Accessory Muscle Use, No Respiratory Distress Cardiovascular: Regular Rate, Rhythm, No Edema, No Gallop, No JVD, No Murmur Gastrointestinal: Normal Bowel Sounds, No Organomegaly, No Pulsatile Mass, Non Tender, Soft Back: Normal Inspection, No CVA Tenderness, No Vertebral Tenderness Extremity: Normal Capillary Refill, Normal Inspection, Normal Range of Motion, Non Tender, No Calf Tenderness, No Pedal Edema Neurologic/Psychiatric: Alert, Oriented x3, Normal Mood/Affect, Motor Weakness (generalized weakness all extremities) Skin: Normal Color, Warm/Dry Lymphatic: No Adenopathy Results/Procedures Lab Laboratory Tests 08/24/18 07:19 Patient resulted labs reviewed. FIM Transfers Therapy Code Descriptions/Definitions Functional [place] Measure: 0=Not Assessed/NA 4=Minimal Assistance 1=Total Assistance 5=Supervision or Setup 2=Maximal Assistance 6=Modified [place] 3=Moderate Assistance 7=Complete [place] Therapy Quality Codes: 6 Independent with activity with or without an assistive device 5 Patient requires set up or clean up by helper. Patient completes activity by themselves 4 Supervision or touching assist (CGA). [place] provide cues , steadying assist 3 The helper provides less than half the effort to complete the activity 2 The helper provides more than half the effort to complete the activity 1 Dependent. The helper does all the effort to complete an activity 7 Patient refused to complete or attempt activity 9 The patient did not perform the activity before the current illness or injury 88 Not attempted due to Medical conditions or safety concerns Transfers (B, C, W/C) (FIM): 5 Scootin Roll Left to Right (QC): 3 Supine to/from Sit: 2 (assist to move both legs andto lift trunk) Sit to/from Stand: 5 Sit to Lying (QC): 3 Sit to Stand (QC): 2 Chair/Bvb-yt-[id number] Xfer(QC): 2 (max assist due to "jerky" movements in standing; unsafe to stand without assist.) Car Transfer (QC): 2 Gait Training Does the Patient Walk?: Yes Gait (FIM): 2 Distance (FIM): 6=581-72 ft Distance: 100 x2 Walk 10 feet (QC): 4 Walk 50 ft with 2 Turns(QC): 4 Walk 150 ft (QC): 4 Walking 10ft/uneven surface-QC: 88 Gait Level of Assist: 4 (CGA provided for safety ) Gait Persons Needed: 1 Gait Assistive Device: FWW (barriatric) Wheelchair Training Does the Pt Use a Wheelchair?: No Stair Training Stairs (FIM): 0 #of Steps: 0 1 Step (curb) (QC): 88 4 Steps (QC): 88 12 Steps (QC): 88 Balance Picking up an Object (QC): 88 Mental Status/Objective Comprehension: 7 Expression: 7 Social Interaction: 7 Problem Solvin Memory: 7 ADL-Treatment Feedin (noted increase diana. pt unable to scoop food or bring fork to mouth without all food spilling. ) Eating (QC): 1 Groomin (pt able to wash face with set up. noted trimmers. put unable to perform pral hygine secodnary to increase inez. pt unable to bring toothbrush to mouth. pt attempt to comb hair but unable to complete. noted decrease FMC) Oral Hygiene (QC): 1 Bathin Bathing Location: L Arm, R Arm, Chest, Abdomen Shower/Bathe Self (QC): 2 Upper Extremity Dressin (pt requried assist with all steps secodnay to increas trimmers. ) Upper Body Dressing (QC): 1 Lower Extremity Dressin Lower Body Dressing (QC): 1 On/Off Footwear (QC): 1 Toiletin Toileting Hygiene (QC): 1 Toilet/Commode Transfer: 1 (MAX A X 2 person assist ) Assessment/Plan Assessment and Plan Assess & Plan/Chief Complaint Assessment: Debility requiring IRF prior to returning back to [facility] Tremors-improved on magnesium Permanent pacemaker PAF CAD Chronic edema Chronic diarrhea GERD PINKY on CPAP HTN Gout HLP DM PVD CRI Chronic bilateral foot drop Plan: IRF protocols Consult PCP Dr Spaulding Home meds Consult Dr Sellers Monitor for falls Monitor diarrhea and Colonoscopy scheduled for Wed by Dr Rommel Miller supplement (1) Debility (2) Obesity (BMI 30.0-34.9) (3) Coarse tremors (4) Pacemaker (5) Falls (6) Hypertension (7) PAF (paroxysmal atrial fibrillation) (8) Hyperlipidemia (9) Edema (10) Diarrhea (11) Urinary retention SAMANTHA ALMAZAN DO Aug 24, 2018 11:24
[2018-08-24 17:23] VITALS: BP 111/71
[2018-08-24] MEDS ORDERED: MAGNESIUM CITRATE 300 ML BTL PO ONE (18:55)
[2018-08-24] MEDS: TAMSULOSIN 0.4 MG (FLOMAX) CAP PO SCH (20:43)
[2018-08-25 05:50] VITALS: BP 136/77
[2018-08-25] MEDS: inSUlin ASPART (NovoLOG) 1 UNIT/0.01 ML (CHARGE PER UNIT) SC SCH ×4 (06:01→21:04)
[2018-08-25] MEDS: LACTOBACILLUS ACIDOPHILUS (PROBIOTIC) CAPSULE PO SCH ×2 (06:03→21:03)
[2018-08-25] MEDS: ALLOPURINOL 100 MG (ZYLOPRIM) TAB PO SCH ×2 (06:03→21:03)
[2018-08-25] MEDS: VITAMIN D3 1,000 UNITS (CHOLECALCIFEROL) TABLET PO SCH (06:03)
[2018-08-25] MEDS: amLODIPine 5 MG (NORVASC) TAB PO SCH (06:03)
[2018-08-25] MEDS: CYANOCOBALAMIN 1,000 MCG (VITAMIN B-12) TABLET PO SCH (06:04)
[2018-08-25] MEDS: ACETAMINOPHEN 325 MG TABLET PO SCH ×2 (06:04→21:03)
[2018-08-25] MEDS: FINASTERIDE (PROSCAR) 5 MG TAB PO SCH (06:04)
[2018-08-25] MEDS: LIPASE/AMYLASE/PROTEASE (PANCRELIPASE) 5,000 UNITS CAP PO SCH ×3 (06:04→17:20)
[2018-08-25 06:35] LABS: MEAN PLATELET VOLUME 9.7 FL (7.4-10.4); RED CELL DISTRIBUTION WIDTH 14.9 % (10.0-14.5); WHITE BLOOD COUNT 6.4 10^3/uL (4.3-11.0)
[2018-08-25 06:50] LABS: ALANINE AMINOTRANSFERASE 40 U/L (0-55); ALBUMIN 3.3 GM/DL (3.2-4.5); ALKALINE PHOSPHATASE 46 U/L (40-136); BILIRUBIN,TOTAL 0.5 MG/DL (0.1-1.0); BUN/CREATININE RATIO 21; CALCIUM 8.8 MG/DL (8.5-10.1); CARBON DIOXIDE 25 MMOL/L (21-32); CHLORIDE 106 MMOL/L (98-107); CREATININE SERUM 1.08 MG/DL (0.60-1.30); GFR ESTIMATED > 60; GLUCOSE 126 MG/DL (70-105); MAGNESIUM 2.3 MG/DL (1.8-2.4); POTASSIUM 3.7 MMOL/L (3.6-5.0); SODIUM 137 MMOL/L (135-145); TOTAL PROTEIN 5.7 GM/DL (6.4-8.2)
[2018-08-25] MEDS: GABAPENTIN 100 MG (NEURONTIN) CAP PO SCH (07:52)
--- NOTE | 2018-08-25 08:16 | PM&R Progress Note ---
Subjective HPI/CC On Admission Date Seen by Provider: Aug 25, 2018 Time Seen by Provider: 08:15 CC: Debility HPI: This is a an elderly patient [address] Spaulding who was admitted to the inpatient rehab unit directly from ER due to severe weakness and debility. He resides at [facility] normally for the past five years. His accompanies him today. Apparently he had severe diarrhea and profound de hydration requiring two ER hospital visits which resulted in IV fluids and Flagyl initiated with good resolution of the diarrhea of which he actually completed but presented to the ER due to severe weakness. Dr. Spaulding recommended inpatient rehab unit and he was accepted after evaluation and he wi ll be placed in the inpatient rehab protocol with intensive therapies in order to return back to [facility]. I did visit with his and his son will be in to see him later. 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 Overall he denies any pain except where the catheter was placed in order to get a urine sample. I did review his ER labs and imaging scans. His prior level of functioning was moderate independent at [facility]. 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 Systems Gastrointestinal: Diarrhea Musculoskeletal: leg pain Objective Exam Vital Signs Vital Signs Date Time Temp Pulse Resp B/P (MAP) Pulse Ox O2 Delivery O2 Flow Rate FiO2 08/25/18 18:11 Room Air 08/25/18 15:59 97.2 79 16 123/75 (91) 93 Capillary Refill : General Appearance: No Apparent Distress, WD/WN, Chronically ill, Obese HEENT: PERRL/EOMI, Normal ENT Inspection, Pharynx Normal, Moist Mucous Membranes Neck: Full Range of Motion, Normal Inspection, Non Tender, Supple Respiratory: Chest Non Tender, Lungs Clear, Normal Breath Sounds, No Accessory Muscle Use, No Respiratory Distress Cardiovascular: Regular Rate, Rhythm, No Edema, No Gallop, No JVD, No Murmur Gastrointestinal: Normal Bowel Sounds, No Organomegaly, No Pulsatile Mass, Non Tender, Soft Back: Normal Inspection, No CVA Tenderness, No Vertebral Tenderness Extremity: Normal Capillary Refill, Normal Inspection, Normal Range of Motion, Non Tender, No Calf Tenderness, No Pedal Edema Neurologic/Psychiatric: Alert, Oriented x3, Normal Mood/Affect, Motor Weakness (generalized weakness all extremities) Skin: Normal Color, Warm/Dry Lymphatic: No Adenopathy Results/Procedures Lab Laboratory Tests 08/25/18 06:00 Patient resulted labs reviewed. FIM Transfers Therapy Code Descriptions/Definitions Functional [place] Measure: 0=Not Assessed/NA 4=Minimal Assistance 1=Total Assistance 5=Supervision or Setup 2=Maximal Assistance 6=Modified [place] 3=Moderate Assistance 7=Complete [place] Therapy Quality Codes: 6 Independent with activity with or without an assistive device 5 Patient requires set up or clean up by helper. Patient completes activity by themselves 4 Supervision or touching assist (CGA). [place] provide cues , steadying assist 3 The helper provides less than half the effort to complete the activity 2 The helper provides more than half the effort to complete the activity 1 Dependent. The helper does all the effort to complete an activity 7 Patient refused to complete or attempt activity 9 The patient did not perform the activity before the current illness or injury 88 Not attempted due to Medical conditions or safety concerns Transfers (B, C, W/C) (FIM): 5 Scootin Roll Left to Right (QC): 3 Supine to/from Sit: 2 (assist to move both legs andto lift trunk) Sit to/from Stand: 5 Sit to Lying (QC): 3 Sit to Stand (QC): 2 Chair/[place] Xfer(QC): 2 (max assist due to "jerky" movements in standing ; unsafe to stand without assist.) Car Transfer (QC): 2 Gait Training Does the Patient Walk?: Yes Gait (FIM): 2 Distance (FIM): 3=538-09 ft Distance: 100 x2 Walk 10 feet (QC): 4 Walk 50 ft with 2 Turns(QC): 4 Walk 150 ft (QC): 4 Walking 10ft/uneven surface-QC: 88 Gait Level of Assist: 4 (CGA provided for safety ) Gait Persons Needed: 1 Gait Assistive Device: FWW (barriatric) Wheelchair Training Does the Pt Use a Wheelchair?: No Stair Training Stairs (FIM): 0 #of Steps: 0 1 Step (curb) (QC): 88 4 Steps (QC): 88 12 Steps (QC): 88 Balance Picking up an Object (QC): 88 Mental Status/Objective Comprehension: 7 Expression: 7 Social Interaction: 7 Problem Solvin Memory: 7 ADL-Treatment Feedin (noted increase diana. pt unable to scoop food or bring fork to mouth without all food spilling. ) Eating (QC): 1 Groomin (pt able to wash face with set up. noted trimmers. put unable to perform pral hygine secodnary to increase inez. pt unable to bring toothbrush to mouth. pt attempt to comb hair but unable to complete. noted decrease FMC) Oral Hygiene (QC): 1 Bathin Bathing Location: L Arm, R Arm, Chest, Abdomen Shower/Bathe Self (QC): 2 Upper Extremity Dressin (pt requried assist with all steps secodnay to increas trimmers. ) Upper Body Dressing (QC): 1 Lower Extremity Dressin Lower Body Dressing (QC): 1 On/Off Footwear (QC): 1 Toiletin Toileting Hygiene (QC): 1 Toilet/Commode Transfer: 1 (MAX A X 2 person assist ) Assessment/Plan Assessment and Plan Assess & Plan/Chief Complaint Assessment: Debility requiring IRF prior to returning back to [facility] Tremors-improved on magnesium Permanent pacemaker PAF CAD Chronic edema Chronic diarrhea GERD PINKY on CPAP HTN Gout HLP DM PVD CRI Chronic bilateral foot drop Plan: IRF protocols Consult PCP Dr Spaulding is appreciated Home meds Consult Dr Sellers Monitor for falls Monitor diarrhea and Colonoscopy scheduled for Wed by Dr Rommel Miller supplement (1) Debility (2) Obesity (BMI 30.0-34.9) (3) Coarse tremors (4) Pacemaker (5) Falls (6) Hypertension (7) PAF (paroxysmal atrial fibrillation) (8) Hyperlipidemia (9) Edema (10) Diarrhea (11) Urinary retention SAMANTHA ALMAZAN DO Aug 25, 2018 08:16
--- NOTE | 2018-08-25 09:17 | Progress Note ---
Subjective Date Seen by a Provider: Aug 25, 2018 Time Seen by a Provider: 09:05 Subjective/Events-last exam PT IS AN 83 Y/O MALE WHO IS KNOWN TO ME FROM CLINIC. HE STATES THAT HE IS FEELING BETTER, HIS TWITCHES HAVE IMPROVED ON LOWER DOSES OF GABAPENTIN. HE STATES THAT HE HAS BEEN HAVING LOOSE STOOLS THIS MORNING. HIS NURSE STATES THAT HE HAD HIS FIRST DOSE OF MAG CITRATE YESTERDAY/EARLY THIS MORNING. Review of Systems General: No Chills; Fatigue HEENT: No Head Aches Pulmonary: No Dyspnea, No Cough Cardiovascular: No: Chest Pain, Palpitations Gastrointestinal: Diarrhea; No: Nausea, Abdominal Pain Genitourinary: No Dysuria; Frequency Neurological: Weakness, Confusion (INTERMITTENT) Objective Exam Last Set of Vital Signs Vital Signs Date Time Temp Pulse Resp B/P (MAP) Pulse Ox O2 Delivery O2 Flow Rate FiO2 08/25/18 05:50 98.6 82 18 136/77 (96) 94 Room Air Capillary Refill : I&O Intake and Output 08/25/18 00:00 Intake Total 1450 ml Balance 1450 ml Intake Oral 1450 ml # Voids 8 # Bowel Movements 2 General: Alert, Oriented X3, Cooperative HEENT: Atraumatic, PERRLA Neck: Supple Lungs: Clear to Auscultation, Normal Air Movement Heart: Regular Rate Abdomen: Normal Bowel Sounds, Soft Neuro: Normal Speech, Cranial Nerves 3-12 NL Psych/Mental Status: Mental Status NL, Mood NL Results Lab Laboratory Tests 08/24/18 11:03: Glucometer 134H 08/24/18 15:39: Glucometer 191H 08/24/18 20:57: Glucometer 195H 08/25/18 05:33: Glucometer 125H 08/25/18 06:00: White Blood Count 6.4, Red Blood Count 3.90L, Hemoglobin 12.0L, Hematocrit 37L, Mean Corpuscular Volume 94, Mean Corpuscular Hemoglobin 31, Mean Corpuscular Hemoglobin Concent 33, Red Cell Distribution Width 14.9H, Platelet Count 242, Mean Platelet Volume 9.7, Sodium Level 137, Potassium Level 3.7, Chloride Level 106, Carbon Dioxide Level 25, Anion Gap 6, Blood Urea Nitrogen 23H, Creatinine 1.08, Estimat Glomerular Filtration Rate > 60, BUN/Creatinine Ratio 21, Glucose Level 126H, Calcium Level 8.8, Corrected Calcium 9.4, Magnesium Level 2.3, Total Bilirubin 0.5, Aspartate Amino Transf (AST/SGOT) 19, Alanine Aminotransferase (ALT/SGPT) 40, Alkaline Phosphatase 46, Total Protein 5.7L, Albumin 3.3 Assessment/Plan Assessment/Plan Assess & Plan/Chief Complaint DIARRHEA - CHRONIC DIABETES MELLITUS- UNCONTROLLED HYPERTENSION CORONARY ARTERY DISEASE HYPERLIPIDEMIA GASTROESOPHAGEAL REFLUX 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 DIABETES MELLITUS- IMPROVED ON LEVEMIR 10 UNITS AT HS - FSBS AC/HS HYPERTENSION - RESTARTED HOME REGIMEN CORONARY ARTERY DISEASE - DEFER TO CARDIOLOGY HYPERLIPIDEMIA - HOLD/STOP STATIN - WITH HIS CHRONIC MYALGIAS, PERSISTENT WEAKNESS WHICH IS WORSENING AND WITH HIS ADVANCED AGE, THE LIKELIHOOD THAT THE STATIN IS GOING TO BE OF LIFE-PROLONGING BENEFIT IS LOW - THEREFORE I WOULD ADVOCATE FOR A TOTAL CESSATION OF THIS MEDICATION. GASTROESOPHAGEAL REFLUX- HOLD THE PPI - THIS CAN PROPAGATE DIARRHEA -- INCREASE RISK FOR CDIFF - AND START ON ZANTAC IF NEEDED. 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 EEG UNABLE TO HAPPEN DUE TO LACK OF CONTRACT OF HOSPITAL WITH NEUROLOGY TO READ THE EEG'S. HIS MUSCLE TWITCHING HAS IMPROVED/RESOLVED ON ONLY ONE TIME DOSING OF GABAPENTIN. POLYPHARMACY - - WEAN DOWN MEDICATIONS ABLE TO IMPROVE MEDICATION BURDEN Clinical Quality Measures DVT/VTE Risk/Contraindication: Risk Factor Score Per Nursin RFS Level Per Nursing on Admit: 4+=Very High MARY HINES MD Aug 25, 2018 09:16
--- NOTE | 2018-08-25 09:45 | Physical Therapy Daily Note ---
PT Daily Note-Current Subjective Pt reports going to have a colonoscopy on Sat"so they are going to clean me out tomorrow". Pt requiring mod verbal encouragement to continue with performing therapy throughout the tx session. Agreeable to Pt session this am. Pain Numeric Pain Scale: 0-No Pain Appearance Pt sitting up in recliner with LE's elevated at beginning of session. pt requesting and assisted to bathroom during session, requiring min A with pants and briefs, verb instruction for hand placement to sit down onto toilet At end of session, pt sitting up in recliner with LE's elevated, call light, phone and bedside table within reach Mental Status Patient Orientation: Person, Place, Time, Eyes Open, Situation BLE AFO's Transfers Therapy Code Descriptions/Definitions Functional [place] Measure: 0=Not Assessed/NA 4=Minimal Assistance 1=Total Assistance 5=Supervision or Setup 2=Maximal Assistance 6=Modified [place] 3=Moderate Assistance 7=Complete [place] Therapy Quality Codes: 6 Independent with activity with or without an assistive device 5 Patient requires set up or clean up by helper. Patient completes activity by themselves 4 Supervision or touching assist (CGA). [place] provide cues , steadying assist 3 The helper provides less than half the effort to complete the activity 2 The helper provides more than half the effort to complete the activity 1 Dependent. The helper does all the effort to complete an activity 7 Patient refused to complete or attempt activity 9 The patient did not perform the activity before the current illness or injury 88 Not attempted due to Medical conditions or safety concerns Transfers (B, C, W/C) (FIM): 5 Sit to/from Stand: 5 (with some effort and requiring instruction for proper hand placement) slight uncontrolled descent and increased effort required at times when not following instruction for proper hand placement Weight Bearing Right Lower Extremity: Right Full Weight Bearing Left Lower Extremity: Left Full Weight Bearing Gait Training Does the Patient Walk?: Yes Gait (FIM): 4 Distance (FIM): 3=150 ft Distance: 180' x2 Gait Level of Assist: 4 (CGA provided due to pt reporting he feels very weak and tired) Gait Persons Needed: 1 Gait Assistive Device: FWW slow steady gait, report of fatigue and very tired. No LOB, decreased step height but no shuffling, does demonstrate heel strike and and toe off Stair Training Stair Training: Handrails/: 2 handrails #of Steps: 4 (ascend and descend) Stairs: Pattern: Step to Level of Assist: 4 (guarded CGA due to pt report of increased tired and weakness) slow pace stopping at each step. Resting standing at top of stairs Exercises Seated Therapy Exercises: Ankle pumps (PROM x20 each LE), Sit to stand (3 consecutively, 7 throughout tx session), Long arc quads (2x10 each LE), Chair press-ups (x2), Hip flexion (4x5 each LE), Hip abd/add (knees extended, BLE's simultaneously, 2x10) Treatments transfers, safety, education, donning/doffing shoes and LE orthotics, bathroom with A with pants and briefs and suspenders, gait, stairs, strengthening, activity tolerance, functional mobility. Assessment Pt requires mod encouragement throughout tx session to continue with activities. Fatigues easily. Requires several sitting and standing rest breaks during activities throughout tx session. PT Short Term Goals Short Term Goals Time Frame: Aug 28, 2018 Transfers (B,C,W/C) (FIM): 4 Gait (FIM): 4 Distance (FIM): 3=150 ft Gait Assistive Device: FWW PT Shelter Goals Shelter Goals PT Shelter Goals Time Frame: Sep 08, 2018 Transfers (B,C,W/C) (FIM): 6 Sit to Lying (QC): 6 Lying-Sitting on Side/Bed(QC): 6 Sit to Stand (QC): 6 Roll Left to Right (QC): 6 Chair/[id number] Xfer(QC): 6 Car Transfer (QC): 6 Does the Patient Walk: Yes Gait (FIM): 6 Gait distance (FIM): 3=150 ft Walk 10 feet (QC): 6 Walk 10ft-Uneven Surface(QC): 6 Walk 50ft with 2 Turns (QC): 6 Walk 150 ft (QC): 6 Gait Assistive Device: FWW Stairs (FIM): 5 (household) # of Steps: 4 1 Step (curb) (QC): 6 4 Steps (QC): 6 12 Steps (QC): 88 Picking up an Object (QC): 4 PT Plan Treatment/Plan Treatment Plan: Continue Plan of Care Treatment Plan: Bed Mobility, Education, Functional Activity Tejal, Functional Strength, Group Therapy, Gait, Safety, Therapeutic Exercise, Transfers Treatment Duration: Sep 08, 2018 Frequency: At least 5 of 7 days/Wk (IRF) Estimated Hrs Per Day: 1.5 hours per day Patient and/or Family Agrees t: Yes Safety Risks/Education Patient Education: Gait Training, Transfer Techniques, Steps, Reviewed Don/Doff Brace, Safety Issues Teaching Recipient: Patient Teaching Methods: Demonstration, Discussion Response to Teaching: Verbalize Understanding, Return Demonstration, Reinforcement Needed Time/GCodes Time In: 930 Time Out: 1100 Total Billed Treatment Time: 90 Total Billed Treatment 1 visit, GT x 2 units, FA x2 units, EX x2 units CEE DENIS ZINC PLATER Aug 25, 2018 09:45
--- NOTE | 2018-08-25 11:44 | Occupational Ther Daily Note ---
OT Current Status-Daily Note Subjective Pt seen in room, up in recliner, reluctant to do OT. "I've got a colonoscopy on Saturday and I'd just like to sit here and reminisce." With encouragement, pt participated. Appearance Alert, cooperative. Mental Status/Objective Therapy Code Descriptions/Definitions Functional [place] Measure: 0=Not Assessed/NA 4=Minimal Assistance 1=Total Assistance 5=Supervision or Setup 2=Maximal Assistance 6=Modified [place] 3=Moderate Assistance 7=Complete [place] ADL-Treatment [facility] Throughout ADLs, pt arpit serna asked for OT help to do things he was capable of, such as wash his face. He washed his face and hands and upper body with setup. Once he stood up, he needed to toilet and walked slowly, CGA, FWW to bathroom to transfer onto tall toilet with grab bar. Min assist to sit on toilet to control descent. He was incontinent of a little stool. He was able to get pants down with CGA and wiped with setup. He needed just a little help to get up off toilet and pulled his walker close, pushing up on the lower rungs. He completed washing his angelica area while on the toilet. Pt educ use of dressing stick to don Depends, with pt requesting help to pull Depends up in back and he'd do the front. Pt did not need dressing stick to get slacks on but did request help to pull pants up in back and hook suspenders on pants. FWW. Pt able to don shirt with setup. All ADLs took longer than usual. Pt left up in recliner, all needs met. Therapy Code Descriptions/Definitions Functional [place] Measure: 0=Not Assessed/NA 4=Minimal Assistance 1=Total Assistance 5=Supervision or Setup 2=Maximal Assistance 6=Modified [place] 3=Moderate Assistance 7=Complete [place] Therapy Quality Codes: 6 Independent with activity with or without an assistive device 5 Patient requires set up or clean up by helper. Patient completes activity by themselves 4 Supervision or touching assist (CGA). [place] provide cues , steadying assist 3 The helper provides less than half the effort to complete the activity 2 The helper provides more than half the effort to complete the activity 1 Dependent. The helper does all the effort to complete an activity 7 Patient refused to complete or attempt activity 9 The patient did not perform the activity before the current illness or injury 88 Not attempted due to Medical conditions or safety concerns Grooming (FIM): 5 Upper Body (FIM): 5 Lower Body Dressing (FIM): 4 (CGA when standing, a little help pullng pants up in back, FWW) Toileting (FIM): 4 (Help with clothing management) Toilet/Commode Transfer (FIM): 4 (min assist) Education OT Patient Education: Modified ADL techniques, Progress toward Goal/Update tx plan, Purpose of tx/functional activities, Safety issues, Transfer techniques Teaching Recipient: Patient Teaching Methods: Demonstration, Discussion Response to Teaching: Verbalize Understanding, Return Demonstration OT Short Term Goals Short Term Goals Eating(FIM): 4 Grooming(FIM): 4 Bathing(FIM): 4 Bathing Location: L Arm, R Arm, L Upper Leg, R Upper Leg, L Lower Leg (including foot), R Lower Leg (including foot), Chest, Abdomen, Buttocks, Perine al Area Upper Body Dressing(FIM): 4 Lower Body Dressing(FIM): 4 Toileting(FIM): 4 Transfers (B,C,W/C) (FIM): 4 Toilet/Commode Transfer(FIM): 4 Tub Transfer(FIM): 4 Shower Transfer(FIM): 4 1=Demonstrate adherence to instructed precautions during ADL tasks. 2=Patient will verbalize/demonstrate understanding of assistive devices/modifications for ADL. 3=Patient will improve strength/tolerance for activity to enable patient to perform ADL's. OT Alf Goals Acute Care Assistant Goals Eating (FIM): 6 Eating (QC): 6 Groomin Oral Hygiene (QC): 6 Bathing(FIM): 6 Bathing Location: L Arm, R Arm, L Upper Leg, R Upper Leg, L Lower Leg (including foot), R Lower Leg (including foot), Chest, Abdomen, Buttocks, Perineal Area Shower/Bathe Self (QC): 6 Upper Body Dressing(FIM): 6 Upper Body Dressing (QC): 6 Lower Body Dressing(FIM): 6 Lower Body Dressing (QC): 6 On/Off Footwear (QC): 6 Toileting(FIM): 6 Toileting Hygiene (QC): 6 Transfers (B,C,W/C) (FIM): 6 Toilet/Commode Transfer(FIM): 6 Toilet/Commode Transfer (QC): 6 Shower Transfer(FIM): 6 Comprehension(FIM): 6 Expression (FIM): 6 Social Interaction(FIM): 6 Problem Solving(FIM): 6 Memory(FIM): 6 Additional Goals: 1-Demonstrate ADL Tasks, 2-Verbalize Understanding, 3- ImproveStrength/Tejal 1=Demonstrate adherence to instructed precautions during ADL tasks. 2=Patient will verbalize/demonstrate understanding of assistive devices/modifications for ADL. 3=Patient will improve strength/tolerance for activity to enable patient to perform ADL's. OT Education/Plan Problem List/Assessment pt presents with functional limitations affecting areas of ADLs/ functional transfers. biggest barrier: full body tremors. pt would benefit from skilled OT Services to increase independence with ADLS/ functional transfers. Discharge Recommendations Plan/Recommendations: Continue POC Treatment Plan/Plan of Care Patient would benefit from OT for education, treatment and training to promote independence in ADL's, mobility, safety and/or upper extremity function for ADL's. Plan of Care: ADL Retraining, Caregiver Training, Concurrent Therapy, Functional Mobility, Group Exercise/Act as Ind, UE Funct Exercise/Act, UE Neuromus Re-Ed/Coord Treatment Duration: Sep 18, 2018 Frequency: 5 times per week Estimated Hrs Per Day: 1.5 hours per day (60- 90 minutes per day) Rehab Potential: Good Time/GCodes Start Time: 08:30 Stop Time: 09:30 Total Time Billed (hr/min): 60 Billed Treatment Time visit, 60 minutes ADL ANDREA PANDYA OT Aug 25, 2018 11:43
--- NOTE | 2018-08-25 14:39 | Occupational Ther Daily Note ---
OT Current Status-Daily Note Subjective Pt seen in room, up in recliner, agreeable to OT. No pain mentioned. Appearance Alert, cooperative Mental Status/Objective Therapy Code Descriptions/Definitions Functional [place] Measure: 0=Not Assessed/NA 4=Minimal Assistance 1=Total Assistance 5=Supervision or Setup 2=Maximal Assistance 6=Modified [place] 3=Moderate Assistance 7=Complete [place] ADL-Treatment Therapy Code Descriptions/Definitions Functional [place] Measure: 0=Not Assessed/NA 4=Minimal Assistance 1=Total Assistance 5=Supervision or Setup 2=Maximal Assistance 6=Modified [place] 3=Moderate Assistance 7=Complete [place] Therapy Quality Codes: 6 Independent with activity with or without an assistive device 5 Patient requires set up or clean up by helper. Patient completes activity by themselves 4 Supervision or touching assist (CGA). [place] provide cues , steadying assist 3 The helper provides less than half the effort to complete the activity 2 The helper provides more than half the effort to complete the activity 1 Dependent. The helper does all the effort to complete an activity 7 Patient refused to complete or attempt activity 9 The patient did not perform the activity before the current illness or injury 88 Not attempted due to Medical conditions or safety concerns Other Treatment Pt got up from recliner with CGA, FWW, struggling a little at midpoint, and walked slowly to w/c, about 8 feet away. pt educ to "square up" with chair before sitting, for safety. Pt transported to gym per w/c. Pt completed nuts and bolts activity with 1# weight on each arm, to strengthen arms to help with transfers and standing during ADL. Pt returned to room per w/c and needed CGA, FWW to get up from w/c, with cues to scoot forward in chair. Pt reminded before sitting in recliner to "square up" but he did not do it completely before sitting. Pt left up in recliner, legs elevated, all needs met. Education OT Patient Education: Progress toward Goal/Update tx plan, Purpose of tx/functional activities, Safety issues, Transfer techniques Teaching Recipient: Patient Teaching Methods: Discussion Response to Teaching: Verbalize Understanding, Reinforcement Needed OT Short Term Goals Short Term Goals Eating(FIM): 4 Grooming(FIM): 4 Bathing(FIM): 4 Bathing Location: L Arm, R Arm, L Upper Leg, R Upper Leg, L Lower Leg (including foot), R Lower Leg (including foot), Chest, Abdomen, Buttocks, Perineal Area Upper Body Dressing(FIM): 4 Lower Body Dressing(FIM): 4 Toileting(FIM): 4 Transfers (B,C,W/C) (FIM): 4 Toilet/Commode Transfer(FIM): 4 Tub Transfer(FIM): 4 Shower Transfer(FIM): 4 1=Demonstrate adherence to instructed precautions during ADL tasks. 2=Patient will verbalize/demonstrate understanding of assistive devices/modifications for ADL. 3=Patient will improve strength/tolerance for activity to enable patient to perform ADL's. OT Egg Packer Goals Care Home Goals Eating (FIM): 6 Eating (QC): 6 Groomin Oral Hygiene (QC): 6 Bathing(FIM): 6 Bathing Location: L Arm, R Arm, L Upper Leg, R Upper Leg, L Lower Leg (including foot), R Lower Leg (including foot), Chest, Abdomen, Buttocks, Perineal Area Shower/Bathe Self (QC): 6 Upper Body Dressing(FIM): 6 Upper Body Dressing (QC): 6 Lower Body Dressing(FIM): 6 Lower Body Dressing (QC): 6 On/Off Footwear (QC): 6 Toileting(FIM): 6 Toileting Hygiene (QC): 6 Transfers (B,C,W/C) (FIM): 6 Toilet/Commode Transfer(FIM): 6 Toilet/Commode Transfer (QC): 6 Shower Transfer(FIM): 6 Comprehension(FIM): 6 Expression (FIM): 6 Social Interaction(FIM): 6 Problem Solving(FIM): 6 Memory(FIM): 6 Additional Goals: 1-Demonstrate ADL Tasks, 2-Verbalize Understanding, 3- ImproveStrength/Tejal 1=Demonstrate adherence to instructed precautions during ADL tasks. 2=Patient will verbalize/demonstrate understanding of assistive devices/modifications for ADL. 3=Patient will improve strength/tolerance for activity to enable patient to perform ADL's. OT Education/Plan Problem List/Assessment pt presents with functional limitations affecting areas of ADLs/ functional transfers. biggest barrier: full body tremors. pt would benefit from skilled OT Services to increase independence with ADLS/ functional transfers. Discharge Recommendations Plan/Recommendations: Continue POC Treatment Plan/Plan of Care Patient would benefit from OT for education, treatment and training to promote independence in ADL's, mobility, safety and/or upper extremity function for ADL's. Plan of Care: ADL Retraining, Caregiver Training, Concurrent Therapy, F unctional Mobility, Group Exercise/Act as Ind, UE Funct Exercise/Act, UE Neuromus Re-Ed/Coord Treatment Duration: Sep 18, 2018 Frequency: 5 times per week Estimated Hrs Per Day: 1.5 hours per day (60- 90 minutes per day) Rehab Potential: Good Time/GCodes Start Time: 13:00 Stop Time: 13:30 Total Time Billed (hr/min): 30 Billed Treatment Time visit, 20 min exercise, 10 minutes functional activity ANDREA PANDYA OT Aug 25, 2018 14:39
[2018-08-25 15:59] VITALS: BP 123/75
--- NOTE | 2018-08-25 17:03 | NUR ---
Per Dr. Carney, regular breakfast on 08/26/18, then clear liquids. NPO after 0200 (08/27/18).
[2018-08-25] MEDS: TAMSULOSIN 0.4 MG (FLOMAX) CAP PO SCH (21:03)
[2018-08-26 05:44] VITALS: BP 113/69
[2018-08-26] MEDS: inSUlin ASPART (NovoLOG) 1 UNIT/0.01 ML (CHARGE PER UNIT) SC SCH ×4 (06:28→21:07)
[2018-08-26] MEDS: LACTOBACILLUS ACIDOPHILUS (PROBIOTIC) CAPSULE PO SCH ×2 (06:44→21:11)
[2018-08-26] MEDS: VITAMIN D3 1,000 UNITS (CHOLECALCIFEROL) TABLET PO SCH (06:44)
[2018-08-26] MEDS: ALLOPURINOL 100 MG (ZYLOPRIM) TAB PO SCH ×2 (06:44→21:11)
[2018-08-26] MEDS: CYANOCOBALAMIN 1,000 MCG (VITAMIN B-12) TABLET PO SCH (06:44)
[2018-08-26] MEDS: FINASTERIDE (PROSCAR) 5 MG TAB PO SCH (06:44)
[2018-08-26] MEDS: amLODIPine 5 MG (NORVASC) TAB PO SCH (06:44)
[2018-08-26] MEDS: LIPASE/AMYLASE/PROTEASE (PANCRELIPASE) 5,000 UNITS CAP PO SCH ×3 (06:44→17:19)
[2018-08-26] MEDS: ACETAMINOPHEN 325 MG TABLET PO SCH ×2 (06:45→21:11)
[2018-08-26 07:28] LABS: ALANINE AMINOTRANSFERASE 34 U/L (0-55); ALBUMIN 3.4 GM/DL (3.2-4.5); ALKALINE PHOSPHATASE 47 U/L (40-136); BILIRUBIN,TOTAL 0.7 MG/DL (0.1-1.0); BUN/CREATININE RATIO 26; CALCIUM 8.9 MG/DL (8.5-10.1); CARBON DIOXIDE 25 MMOL/L (21-32); CHLORIDE 105 MMOL/L (98-107); CREATININE SERUM 1.09 MG/DL (0.60-1.30); GFR ESTIMATED > 60; GLUCOSE 116 MG/DL (70-105); MAGNESIUM 2.1 MG/DL (1.8-2.4); POTASSIUM 3.9 MMOL/L (3.6-5.0); SODIUM 138 MMOL/L (135-145); TOTAL PROTEIN 5.8 GM/DL (6.4-8.2)
--- NOTE | 2018-08-26 08:39 | PM&R Progress Note ---
Subjective HPI/CC On Admission Date Seen by Provider: Aug 26, 2018 Time Seen by Provider: 08:45 CC: Debility HPI: This is a an elderly patient [address] Spaulding who was admitted to the inpatient rehab unit directly from ER due to severe weakness and debility. He resides at [facility] normally for the past five years. His accompanies him today. Apparently he had severe diarrhea and profound de hydration requiring two ER hospital visits which resulted in IV fluids and Flagyl initiated with good resolution of the diarrhea of which he actually completed but presented to the ER due to severe weakness. Dr. Spaulding recommended inpatient rehab unit and he was accepted after evaluation and he wi ll be placed in the inpatient rehab protocol with intensive therapies in order to return back to [facility]. I did visit with his and his son will be in to see him later. 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 Overall he denies any pain except where the catheter was placed in order to get a urine sample. I did review his ER labs and imaging scans. His prior level of functioning was moderate independent at [facility]. Subjective/Events-last exam Magcitrate given for colonoscopy prep Accu checks are okay No more tremors Strengthening everyday Will go back to assisted living at discharge AFO braces bilaterally maintained Conferred with education research analyst of Systems General: Fatigue Objective Exam Vital Signs Vital Signs Date Time Temp Pulse Resp B/P (MAP) Pulse Ox O2 Delivery O2 Flow Rate FiO2 08/26/18 16:16 97.7 78 14 121/75 (90) 96 Room Air Capillary Refill : General Appearance: No Apparent Distress, WD/WN, Chronically ill, Obese HEENT: PERRL/EOMI, Normal ENT Inspection, Pharynx Normal, Moist Mucous Membranes Neck: Full Range of Motion, Normal Inspection, Non Tender, Supple Respiratory: Chest Non Tender, Lungs Clear, Normal Breath Sounds, No Accessory Muscle Use, No Respiratory Distress Cardiovascular: Regular Rate, Rhythm, No Edema, No Gallop, No JVD, No Murmur Gastrointestinal: Normal Bowel Sounds, No Organomegaly, No Pulsatile Mass, Non Tender, Soft Back: Normal Inspection, No CVA Tenderness, No Vertebral Tenderness Extremity: Normal Capillary Refill, Normal Inspection, Normal Range of Motion, Non Tender, No Calf Tenderness, No Pedal Edema Neurologic/Psychiatric: Alert, Oriented x3, Normal Mood/Affect, Motor Weakness (generalized weakness all extremities) Skin: Normal Color, Warm/Dry Lymphatic: No Adenopathy Results/Procedures Lab Laboratory Tests 08/26/18 06:35 Patient resulted labs reviewed. FIM Transfers Therapy Code Descriptions/Definitions Functional [place] Measure: 0=Not Assessed/NA 4=Minimal Assistance 1=Total Assistance 5=Supervision or Setup 2=Maximal Assistance 6=Modified [place] 3=Moderate Assistance 7=Complete [place] Therapy Quality Codes: 6 Independent with activity with or without an assistive device 5 Patient requires set up or clean up by helper. Patient completes activity by themselves 4 Supervision or touching assist (CGA). [place] provide cues , steadying assist 3 The helper provides less than half the effort to complete the activity 2 The helper provides more than half the effort to complete the activity 1 Dependent. The helper does all the effort to complete an activity 7 Patient refused to complete or attempt activity 9 The patient did not perform the activity before the current illness or injury 88 Not attempted due to Medical conditions or safety concerns Transfers (B, C, W/C) (FIM): 5 Scootin Roll Left to Right (QC): 3 Supine to/from Sit: 2 (assist to move both legs andto lift trunk) Sit to/from Stand: 5 (with some effort and requiring instruction for proper hand placement) Sit to Lying (QC): 3 Sit to Stand (QC): 2 Chair/Ifs-rz-Nhyud Xfer(QC): 2 (max assist due to "jerky" movements in standing; unsafe to stand without assist.) Car Transfer (QC): 2 Gait Training Does the Patient Walk?: Yes Gait (FIM): 4 Distance (FIM): 3=150 ft Distance: 180' x2 Walk 10 feet (QC): 4 Walk 50 ft with 2 Turns(QC): 4 Walk 150 ft (QC): 4 Walking 10ft/uneven surface-QC: 88 Gait Level of Assist: 4 (CGA provided due to pt reporting he feels very weak and tired) Gait Persons Needed: 1 Gait Assistive Device: FWW Wheelchair Training Does the Pt Use a Wheelchair?: No Stair Training Stair Training: Handrails/: 2 handrails Stairs (FIM): 0 #of Steps: 4 (ascend and descend) 1 Step (curb) (QC): 88 4 Steps (QC): 88 12 Steps (QC): 88 Stairs: Pattern: Step to Level of Assist: 4 (guarded CGA due to pt report of increased tired and weakness) Balance Picking up an Object (QC): 88 Mental Status/Objective Comprehension: 7 Expression: 7 Social Interaction: 7 Problem Solvin Memory: 7 ADL-Treatment Feedin (noted increase diana. pt unable to scoop food or bring fork to mouth without all food spilling. ) Eating (QC): 1 Groomin Oral Hygiene (QC): 1 Bathin Bathing Location: L Arm, R Arm, Chest, Abdomen Shower/Bathe Self (QC): 2 Upper Extremity Dressin Upper Body Dressing (QC): 1 Lower Extremity Dressin (CGA when standing, a little help pullng pants up in back, FWW) Lower Body Dressing (QC): 1 On/Off Footwear (QC): 1 Toiletin (Help with clothing management) Toileting Hygiene (QC): 1 Toilet/Commode Transfer: 4 (min assist) Assessment/Plan Assessment and Plan Assess & Plan/Chief Complaint Assessment: Debility requiring IRF prior to returning back to [facility] Tremors-improved on magnesium Permanent pacemaker PAF CAD Chronic edema Chronic diarrhea GERD PINKY on CPAP HTN Gout HLP DM PVD CRI Chronic bilateral foot drop Plan: IRF protocols Consult PCP Dr Spaulding is appreciated Home meds Consult Dr Sellers Monitor for falls Monitor diarrhea and Colonoscopy scheduled for Wed by Dr Rommel Miller supplement (1) Debility (2) Obesity (BMI 30.0-34.9) (3) Coarse tremors (4) Pacemaker (5) Falls (6) Hypertension (7) PAF (paroxysmal atrial fibrillation) (8) Hyperlipidemia (9) Edema (10) Diarrhea (11) Urinary retention SAMANTHA ALMAZAN DO Aug 26, 2018 08:39
[2018-08-26] MEDS: GABAPENTIN 100 MG (NEURONTIN) CAP PO SCH (10:06)
[2018-08-26] MEDS: MAGNESIUM CITRATE 300 ML BTL PO SCH ×2 (10:06→21:11)
--- NOTE | 2018-08-26 10:45 | Physical Therapy Daily Note ---
PT Daily Note-Current Subjective Pt states he would like to stay in his room as close to the bathroom as possible since getting meds to make him have bm's for colonoscopy tomorrow. Agreeable to PT session Pain Numeric Pain Scale: 0-No Pain Appearance upon arrival, pt sitting up in recliner with nsg present and administering drink prep for colonoscopy scheduled for tomorrow Pt requesting and assisted with taking pants and shoes off after gait training today in prep for having to go to the bathroom from colonoscopy prep drink Pt requesting and assisted with use of urinal At end of session, pt sitting up in recliner with briefs, shirt, hospital gown and slipper socks on, pants and shoes off, call light, phone and bedside table within reach with colonoscopy prep drink Mental Status Patient Orientation: Person, Place, Time, Eyes Open, Situation Bilat AFO's Transfers Therapy Code Descriptions/Definitions Functional [place] Measure: 0=Not Assessed/NA 4=Minimal Assistance 1=Total Assistance 5=Supervision or Setup 2=Maximal Assistance 6=Modified [place] 3=Moderate Assistance 7=Complete [place] Therapy Quality Codes: 6 Independent with activity with or without an assistive device 5 Patient requires set up or clean up by helper. Patient completes activity by themselves 4 Supervision or touching assist (CGA). [place] provide cues , steadying assist 3 The helper provides less than half the effort to complete the activity 2 The helper provides more than half the effort to complete the activity 1 Dependent. The helper does all the effort to complete an activity 7 Patient refused to complete or attempt activity 9 The patient did not perform the activity before the current illness or injury 88 Not attempted due to Medical conditions or safety concerns Transfers (B, C, W/C) (FIM): 5 Sit to/from Stand: 5 pt performing all sit to stand transfers on 1st attempt, requires verb inst 50% of the time for hand placement and safety with stand to sit. Occasional uncontrolled descent to sit. Weight Bearing Right Lower Extremity: Right Full Weight Bearing Left Lower Extremity: Left Full Weight Bearing Gait Training Does the Patient Walk?: Yes Gait (FIM): 5 Distance (FIM): 3=150 ft Distance: 306' x2 Gait Level of Assist: 5 (SBA) Gait Persons Needed: 1 Gait Assistive Device: FWW decreased step height, step through gait pattern with fair speed, requires standing rest breaks at times, No LOB or unsteadiness Exercises Seated Therapy Exercises: Ankle pumps (PROM BLE's x20 each ankle ROM), Sit to stand (x5), Long arc quads (BLE's 2x10), Hip flexion (BLE's 2x10), Hip abd/add ( 2x10) Treatments transfers, safety, gait, strengthening, ROM, balance, functional mobility, activity tolerance, use of urinal Assessment Pt continues to require min encouragement to continue participation through therapy session. Has increased gait distance and decreased assist required. PT Short Term Goals Short Term Goals Time Frame: Aug 28, 2018 Transfers (B,C,W/C) (FIM): 4 Gait (FIM): 4 Distance (FIM): 3=150 ft Gait Assistive Device: FWW PT Registered Clinical Dietitian Goals Registered Clinical Dietitian Goals PT Registered Clinical Dietitian Goals Time Frame: Sep 08, 2018 Transfers (B,C,W/C) (FIM): 6 Sit to Lying (QC): 6 Lying-Sitting on Side/Bed(QC): 6 Sit to Stand (QC): 6 Roll Left to Right (QC): 6 Chair/Kxk-zr-Xoieh Xfer(QC): 6 Car Transfer (QC): 6 Does the Patient Walk: Yes Gait (FIM): 6 Gait distance (FIM): 3=150 ft Walk 10 feet (QC): 6 Walk 10ft-Uneven Surface(QC): 6 Walk 50ft with 2 Turns (QC): 6 Walk 150 ft (QC): 6 Gait Assistive Device: FWW Stairs (FIM): 5 (household) # of Steps: 4 1 Step (curb) (QC): 6 4 Steps (QC): 6 12 Steps (QC): 88 Picking up an Object (QC): 4 PT Plan Treatment/Plan Treatment Plan: Continue Plan of Care Treatment Plan: Bed Mobility, Education, Functional Activity Tejal, Functional Strength, Group Therapy, Gait, Safety, Therapeutic Exercise, Transfers Treatment Duration: Sep 08, 2018 Frequency: At least 5 of 7 days/Wk (IRF) Estimated Hrs Per Day: 1.5 hours per day Patient and/or Family Agrees t: Yes Safety Risks/Education Patient Education: Gait Training, Transfer Techniques, Reviewed Don/Doff Brace (BLE AFO, pt insists he cannot do it himself), Safety Issues Teaching Recipient: Patient Teaching Methods: Demonstration, Discussion Response to Teaching: Verbalize Understanding, Return Demonstration, Reinforcement Needed (yen hand placement during transfers) Time/GCodes Time In: 1000 Time Out: 1100 Total Billed Treatment Time: 60 Total Billed Treatment 1 visit, FA x 1 unit, GT x 2 units, EX x 1 unit CEE DENIS PTA Aug 26, 2018 10:45
--- NOTE | 2018-08-26 12:56 | Occupational Ther Daily Note ---
OT Current Status-Daily Note Subjective Pt in bed, states "I have to do therapy today?" Education provided and pt willing to participate. Mental Status/Objective Therapy Code Descriptions/Definitions Functional [place] Measure: 0=Not Assessed/NA 4=Minimal Assistance 1=Total Assistance 5=Supervision or Setup 2=Maximal Assistance 6=Modified [place] 3=Moderate Assistance 7=Complete [place] ADL-Treatment Pt supine to sit with SBA and increased time. Transfer to recliner chair with CGA. Pt declined shower, but agreed to seated sponge bath. Pt bathed upper body with SBA and increased time. Pt able to wash bilateral upper legs and angelica area. Pt required assist to wash feet and min assist for standing balance while washing buttocks. Don shirt with snaps with set up. Pt able to thread bilateral LE into pants. Sit to stand with min assist for pant hike. Pt requires assist to pull pants up in back. Pt required assist to don sock and shoes. Increased time required to complete bathing and dressing tasks. Pt requires encouragement to attempt tasks to increase independence. Grooming tasks completed seated at sink. Pt brushed teeth and combed hair with set up while seated at sink. Pt sitting in chair with needs met after session. Therapy Code Descriptions/Definitions Functional [place] Measure: 0=Not Assessed/NA 4=Minimal Assistance 1=Total Assistance 5=Supervision or Setup 2=Maximal Assistance 6=Modified [place] 3=Moderate Assistance 7=Complete [place] Therapy Quality Codes: 6 Independent with activity with or without an assistive device 5 Patient requires set up or clean up by helper. Patient completes activity by themselves 4 Supervision or touching assist (CGA). [place] provide cues , steadying assist 3 The helper provides less than half the effort to complete the activity 2 The helper provides more than half the effort to complete the activity 1 Dependent. The helper does all the effort to complete an activity 7 Patient refused to complete or attempt activity 9 The patient did not perform the activity before the current illness or injury 88 Not attempted due to Medical conditions or safety concerns Grooming (FIM): 5 Oral Hygiene (QC): 5 Bathing (FIM): 3 Upper Body (FIM): 5 Upper Body Dressing (QC): 4 Lower Body Dressing (FIM): 3 OT Short Term Goals Short Term Goals Eating(FIM): 4 Grooming(FIM): 4 Bathing(FIM): 4 Bathing Location: L Arm, R Arm, L Upper Leg, R Upper Leg, L Lower Leg (including foot), R Lower Leg (including foot), Chest, Abdomen, Buttocks, Perineal Area Upper Body Dressing(FIM): 4 Lower Body Dressing(FIM): 4 Toileting(FIM): 4 Transfers (B,C,W/C) (FIM): 4 Toilet/Commode Transfer(FIM): 4 Tub Transfer(FIM): 4 Shower Transfer(FIM): 4 1=Demonstrate adherence to instructed precautions during ADL tasks. 2=Patient will verbalize/demonstrate understanding of assistive devices/modifications for ADL. 3=Patient will improve strength/tolerance for activity to enable patient to perform ADL's. OT Prison Goals Prison Goals Eating (FIM): 6 Eating (QC): 6 Groomin Oral Hygiene (QC): 6 Bathing(FIM): 6 Bathing Location: L Arm, R Arm, L Upper Leg, R Upper Leg, L Lower Leg (including foot), R Lower Leg (including foot), Chest, Abdomen, Buttocks, Perineal Area Shower/Bathe Self (QC): 6 Upper Body Dressing(FIM): 6 Upper Body Dressing (QC): 6 Lower Body Dressing(FIM): 6 Lower Body Dressing (QC): 6 On/Off Footwear (QC): 6 Toileting(FIM): 6 Toileting Hygiene (QC): 6 Transfers (B,C,W/C) (FIM): 6 Toilet/Commode Transfer(FIM): 6 Toilet/Commode Transfer (QC): 6 Shower Transfer(FIM): 6 Comprehension(FIM): 6 Expression (FIM): 6 Social Interaction(FIM): 6 Problem Solving(FIM): 6 Memory(FIM): 6 Additional Goals: 1-Demonstrate ADL Tasks, 2-Verbalize Understanding, 3-Impro veStrength/Tejal 1=Demonstrate adherence to instructed precautions during ADL tasks. 2=Patient will verbalize/demonstrate understanding of assistive devices/modifications for ADL. 3=Patient will improve strength/tolerance for activity to enable patient to perform ADL's. OT Education/Plan Discharge Recommendations Plan/Recommendations: Continue POC Treatment Plan/Plan of Care Patient would benefit from OT for education, treatment and training to promote independence in ADL's, mobility, safety and/or upper extremity function for ADL's. Plan of Care: ADL Retraining, Caregiver Training, Concurrent Therapy, Functional Mobility, Group Exercise/Act as Ind, UE Funct Exercise/Act, UE Neuromus Re-Ed/Coord Treatment Duration: Sep 18, 2018 Frequency: 5 times per week Estimated Hrs Per Day: 1.5 hours per day (60- 90 minutes per day) Rehab Potential: Good Time/GCodes Start Time: 09:00 Stop Time: 10:00 Total Time Billed (hr/min): 60 Billed Treatment Time 1 visit, ADLx4(60minutes) SCOTT TREJO OT Aug 26, 2018 12:56
--- NOTE | 2018-08-26 14:39 | Occupational Ther Daily Note ---
OT Current Status-Daily Note Subjective Pt sitting in chair, agrees to therapy Mental Status/Objective Therapy Code Descriptions/Definitions Functional [place] Measure: 0=Not Assessed/NA 4=Minimal Assistance 1=Total Assistance 5=Supervision or Setup 2=Maximal Assistance 6=Modified [place] 3=Moderate Assistance 7=Complete [place] ADL-Treatment Therapy Code Descriptions/Definitions Functional [place] Measure: 0=Not Assessed/NA 4=Minimal Assistance 1=Total Assistance 5=Supervision or Setup 2=Maximal Assistance 6=Modified [place] 3=Moderate Assistance 7=Complete [place] Therapy Quality Codes: 6 Independent with activity with or without an assistive device 5 Patient requires set up or clean up by helper. Patient completes activity by themselves 4 Supervision or touching assist (CGA). [place] provide cues , steadying assist 3 The helper provides less than half the effort to complete the activity 2 The helper provides more than half the effort to complete the activity 1 Dependent. The helper does all the effort to complete an activity 7 Patient refused to complete or attempt activity 9 The patient did not perform the activity before the current illness or injury 88 Not attempted due to Medical conditions or safety concerns Other Treatment Pt completed bilateral UE activity while seated. Pt performed resistance peg activity with bilateral UE with 1# weights in place to increase strength for ADLs and transfers and manipulation skills. Pt completed putty activity to increase strength and coordination skills. Pt able to remove small beads from putty with increased time. Pt sitting in chair with needs met after session. OT Short Term Goals Short Term Goals Eating(FIM): 4 Grooming(FIM): 4 Bathing(FIM): 4 Bathing Location: L Arm, R Arm, L Upper Leg, R Upper Leg, L Lower Leg (including foot), R Lower Leg (including foot), Chest, Abdomen, Buttocks, Perineal Area Upper Body Dressing(FIM): 4 Lower Body Dressing(FIM): 4 Toileting(FIM): 4 Transfers (B,C,W/C) (FIM): 4 Toilet/Commode Transfer(FIM): 4 Tub Transfer(FIM): 4 Shower Transfer(FIM): 4 1=Demonstrate adherence to instructed precautions during ADL tasks. 2=Patient will verbalize/demonstrate understanding of assistive devices/modifications for ADL. 3=Patient will improve strength/tolerance for activity to enable patient to perform ADL's. OT Residential Goals Residential Goals Eating (FIM): 6 Eating (QC): 6 Groomin Oral Hygiene (QC): 6 Bathing(FIM): 6 Bathing Location: L Arm, R Arm, L Upper Leg, R Upper Leg, L Lower Leg (including foot), R Lower Leg (including foot), Chest, Abdomen, Buttocks, Perineal Area Shower/Bathe Self (QC): 6 Upper Body Dressing(FIM): 6 Upper Body Dressing (QC): 6 Lower Body Dressing(FIM): 6 Lower Body Dressing (QC): 6 On/Off Footwear (QC): 6 Toileting(FIM): 6 Toileting Hygiene (QC): 6 Transfers (B,C,W/C) (FIM): 6 Toilet/Commode Transfer(FIM): 6 Toilet/Commode Transfer (QC): 6 Shower Transfer(FIM): 6 Comprehension(FIM): 6 Expression (FIM): 6 Social Interaction(FIM): 6 Problem Solving(FIM): 6 Memory(FIM): 6 Additional Goals: 1-Demonstrate ADL Tasks, 2-Verbalize Understanding, 3- ImproveStrength/Tejal 1=Demonstrate adherence to instructed precautions during ADL tasks. 2=Patient will verbalize/demonstrate understanding of assistive devices/modifications for ADL. 3=Patient will improve strength/tolerance for activity to enable patient to perform ADL's. OT Education/Plan Discharge Recommendations Plan/Recommendations: Continue POC Treatment Plan/Plan of Care Patient would benefit from OT for education, treatment and training to promote independence in ADL's, mobility, safety and/or upper extremity function for ADL's. Plan of Care: ADL Retraining, Caregiver Training, Concurrent Therapy, Functional Mobility, Group Exercise/Act as Ind, UE Funct Exercise/Act, UE Neuromus Re-Ed/Coord Treatment Duration: Sep 18, 2018 Frequency: 5 times per week Estimated Hrs Per Day: 1.5 hours per day (60- 90 minutes per day) Rehab Potential: Good Time/GCodes Start Time: 13:00 Stop Time: 13:30 Total Time Billed (hr/min): 30 Billed Treatment Time 1 visit, EXx2(30minutes) SCOTT TREJO OT Aug 26, 2018 14:39
--- NOTE | 2018-08-26 15:56 | Physical Therapy Daily Note ---
PT Daily Note-Current Subjective Patient in recliner pre tx, agrees to PT, has no complaints of pain at rest. Patient doesn't want to ambulate or go out of the room at this time due to prep for colonoscopy. Appearance Patient in bed post tx with nurse call, phone, tray, all needs met. SCD's on, and heated blanket on. Mental Status Patient Orientation: Person, Place, Situation Attachments: SCD's Transfers Therapy Code Descriptions/Definitions Functional [place] Measure: 0=Not Assessed/NA 4=Minimal Assistance 1=Total Assistance 5=Supervision or Setup 2=Maximal Assistance 6=Modified [place] 3=Moderate Assistance 7=Complete [place] Therapy Quality Codes: 6 Independent with activity with or without an assistive device 5 Patient requires set up or clean up by helper. Patient completes activity by themselves 4 Supervision or touching assist (CGA). [place] provide cues , steadying assist 3 The helper provides less than half the effort to complete the activity 2 The helper provides more than half the effort to complete the activity 1 Dependent. The helper does all the effort to complete an activity 7 Patient refused to complete or attempt activity 9 The patient did not perform the activity before the current illness or injury 88 Not attempted due to Medical conditions or safety concerns Scootin Supine to/from Sit: 5 Sit to/from Stand: 5 Bed to/from Chair: 5 Weight Bearing Right Lower Extremity: Right Full Weight Bearing Left Lower Extremity: Left Full Weight Bearing Gait Training Gait (FIM): 1 Distance: 5' Gait Level of Assist: 5 Gait Persons Needed: 1 Gait Assistive Device: FWW Patient ambulates just a few feet from the recliner to the bed. Slow, careful ambulation since he doesn't have his AFO's on. Bilateral dropfoot. Exercises Supine Ex: Quad Set, Glut sets, Heel Slides, Straight leg raise Supine Reps: 20 (actually done in the recliner with legs elevated) Seated Therapy Exercises: Long arc quads, Hip flexion, Hip abd/add Seated Reps: 20 Treatments LE exercises, bed mobility and transfers Assessment Current Status: Poor Progress very little mobility today due to colonoscopy prep PT Short Term Goals Short Term Goals Time Frame: Aug 28, 2018 Transfers (B,C,W/C) (FIM): 4 Gait (FIM): 4 Distance (FIM): 3=150 ft Gait Assistive Device: FWW PT Steam Press Operator Goals Steam Press Operator Goals PT Steam Press Operator Goals Time Frame: Sep 08, 2018 Transfers (B,C,W/C) (FIM): 6 Sit to Lying (QC): 6 Lying-Sitting on Side/Bed(QC): 6 Sit to Stand (QC): 6 Roll Left to Right (QC): 6 Chair/[id number]-Dbdpz Xfer(QC): 6 Car Transfer (QC): 6 Does the Patient Walk: Yes Gait (FIM): 6 Gait distance (FIM): 3=150 ft Walk 10 feet (QC): 6 Walk 10ft-Uneven Surface(QC): 6 Walk 50ft with 2 Turns (QC): 6 Walk 150 ft (QC): 6 Gait Assistive Device: FWW Stairs (FIM): 5 (household) # of Steps: 4 1 Step (curb) (QC): 6 4 Steps (QC): 6 12 Steps (QC): 88 Picking up an Object (QC): 4 PT Plan Problem List Problem List: Activity Tolerance, Functional Strength, Safety, Balance, Gait, Transfer, Bed Mobility, ROM Treatment/Plan Treatment Plan: Continue Plan of Care Treatment Plan: Bed Mobility, Education, Functional Activity Tejal, Functional Strength, Group Therapy, Gait, Safety, Therapeutic Exercise, Transfers Treatment Duration: Sep 08, 2018 Frequency: At least 5 of 7 days/Wk (IRF) Estimated Hrs Per Day: 1.5 hours per day Patient and/or Family Agrees t: Yes Safety Risks/Education Patient Education: Gait Training, Transfer Techniques, Correct Positioning, Safety Issues Teaching Recipient: Patient Teaching Methods: Demonstration, Discussion Response to Teaching: Reinforcement Needed Time/GCodes Time In: 1530 Time Out: 1600 Total Billed Treatment Time: 30 Total Billed Treatment 1 visit EX 20' FA 10' EH BERG PT Aug 26, 2018 15:56
[2018-08-26 16:16] VITALS: BP 121/75
[2018-08-26] MEDS ORDERED: MAGNESIUM CITRATE 300 ML BTL PO NR (18:00)
[2018-08-26] MEDS: TAMSULOSIN 0.4 MG (FLOMAX) CAP PO SCH (21:11)
[2018-08-27 06:00] VITALS: BP 125/78
[2018-08-27] MEDS: LIPASE/AMYLASE/PROTEASE (PANCRELIPASE) 5,000 UNITS CAP PO SCH ×3 (06:03→18:28)
[2018-08-27 06:12] LABS: HEMOGLOBIN 12.8 G/DL (13.3-17.7); MEAN PLATELET VOLUME 9.6 FL (7.4-10.4); RED CELL DISTRIBUTION WIDTH 14.8 % (10.0-14.5); WHITE BLOOD COUNT 6.4 10^3/uL (4.3-11.0)
[2018-08-27] MEDS: inSUlin ASPART (NovoLOG) 1 UNIT/0.01 ML (CHARGE PER UNIT) SC SCH ×4 (06:13→21:49)
[2018-08-27 06:37] LABS: ALANINE AMINOTRANSFERASE 35 U/L (0-55); ALBUMIN 3.6 GM/DL (3.2-4.5); ALKALINE PHOSPHATASE 53 U/L (40-136); BILIRUBIN,TOTAL 0.9 MG/DL (0.1-1.0); BUN/CREATININE RATIO 23; CALCIUM 9.1 MG/DL (8.5-10.1); CARBON DIOXIDE 28 MMOL/L (21-32); CHLORIDE 101 MMOL/L (98-107); CREATININE SERUM 1.03 MG/DL (0.60-1.30); GFR ESTIMATED > 60; GLUCOSE 156 MG/DL (70-105); MAGNESIUM 2.6 MG/DL (1.8-2.4); POTASSIUM 4.2 MMOL/L (3.6-5.0); SODIUM 137 MMOL/L (135-145); TOTAL PROTEIN 6.3 GM/DL (6.4-8.2)
[2018-08-27] MEDS: ALLOPURINOL 100 MG (ZYLOPRIM) TAB PO SCH ×2 (07:00→21:48)
[2018-08-27] MEDS: LACTOBACILLUS ACIDOPHILUS (PROBIOTIC) CAPSULE PO SCH ×2 (07:00→21:48)
[2018-08-27] MEDS: ACETAMINOPHEN 325 MG TABLET PO SCH ×2 (07:00→21:48)
[2018-08-27] MEDS: amLODIPine 5 MG (NORVASC) TAB PO SCH (07:00)
--- NOTE | 2018-08-27 08:25 | PM&R Progress Note ---
Subjective HPI/CC On Admission Date Seen by Provider: Aug 27, 2018 Time Seen by Provider: 08:30 CC: Debility HPI: This is a an elderly patient [address] Spaulding who was admitted to the inpatient rehab unit directly from ER due to severe weakness and debility. He resides at [facility] normally for the past five years. His accompanies him today. Apparently he had severe diarrhea and profound de hydration requiring two ER hospital visits which resulted in IV fluids and Flagyl initiated with good resolution of the diarrhea of which he actually completed but presented to the ER due to severe weakness. Dr. Spaulding recommended inpatient rehab unit and he was accepted after evaluation and he wi ll be placed in the inpatient rehab protocol with intensive therapies in order to return back to [facility]. I did visit with his and his son will be in to see him later. 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 Overall he denies any pain except where the catheter was placed in order to get a urine sample. I did review his ER labs and imaging scans. His prior level of functioning was moderate independent at [facility]. Subjective/Events-last exam Pt hardeep today feels like his blankets are out of kilter Colonoscopy today Magnesium 2.6 Will likely not participating in therapy for the full day due to the colonoscopy at 11:[address] 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 of Systems General: Fatigue Objective Exam Vital Signs Vital Signs Date Time Temp Pulse Resp B/P (MAP) Pulse Ox O2 Delivery O2 Flow Rate FiO2 08/27/18 17:46 97.7 81 16 121/86 (98) 96 Room Air Capillary Refill : General Appearance: No Apparent Distress, WD/WN, Chronically ill, Obese HEENT: PERRL/EOMI, Normal ENT Inspection, Pharynx Normal, Moist Mucous Membranes Neck: Full Range of Motion, Normal Inspection, Non Tender, Supple Respiratory: Chest Non Tender, Lungs Clear, Normal Breath Sounds, No Accessory Muscle Use, No Respiratory Distress Cardiovascular: Regular Rate, Rhythm, No Edema, No Gallop, No JVD, No Murmur Gastrointestinal: Normal Bowel Sounds, No Organomegaly, No Pulsatile Mass, Non Tender, Soft Back: Normal Inspection, No CVA Tenderness, No Vertebral Tenderness Extremity: Normal Capillary Refill, Normal Inspection, Normal Range of Motion, Non Tender, No Calf Tenderness, No Pedal Edema Neurologic/Psychiatric: Alert, Oriented x3, Normal Mood/Affect, Motor Weakness (generalized weakness all extremities) Skin: Normal Color, Warm/Dry Lymphatic: No Adenopathy Results/Procedures Lab Laboratory Tests 08/27/18 06:05 Patient resulted labs reviewed. FIM Transfers Therapy Code Descriptions/Definitions Functional [place] Measure: 0=Not Assessed/NA 4=Minimal Assistance 1=Total Assistance 5=Supervision or Setup 2=Maximal Assistance 6=Modified [place] 3=Moderate Assistance 7=Complete [place] Therapy Quality Codes: 6 Independent with activity with or without an assistive device 5 Patient requires set up or clean up by helper. Patient completes activity by themselves 4 Supervision or touching assist (CGA). [place] provide cues , steadying assist 3 The helper provides less than half the effort to complete the activity 2 The helper provides more than half the effort to complete the activity 1 Dependent. The helper does all the effort to complete an activity 7 Patient refused to complete or attempt activity 9 The patient did not perform the activity before the current illness or injury 88 Not attempted due to Medical conditions or safety concerns Transfers (B, C, W/C) (FIM): 5 Scootin Roll Left to Right (QC): 3 Supine to/from Sit: 5 Sit to/from Stand: 5 Sit to Lying (QC): 3 Sit to Stand (QC): 2 Chair/Tlt-jq-Asmja Xfer(QC): 2 (max assist due to "jerky" movements in standing; unsafe to stand without assist.) Bed to/from Chair: 5 Car Transfer (QC): 2 Gait Training Does the Patient Walk?: Yes Gait (FIM): 1 Distance (FIM): 3=150 ft Distance: 5' Walk 10 feet (QC): 4 Walk 50 ft with 2 Turns(QC): 4 Walk 150 ft (QC): 4 Walking 10ft/uneven surface-QC: 88 Gait Level of Assist: 5 Gait Persons Needed: 1 Gait Assistive Device: FWW Wheelchair Training Does the Pt Use a Wheelchair?: No Stair Training Stair Training: Handrails/: 2 handrails Stairs (FIM): 0 #of Steps: 4 (ascend and descend) 1 Step (curb) (QC): 88 4 Steps (QC): 88 12 Steps (QC): 88 Stairs: Pattern: Step to Level of Assist: 4 (guarded CGA due to pt report of increased tired and weakness) Balance Picking up an Object (QC): 88 Mental Status/Objective Comprehension: 7 Expression: 7 Social Interaction: 7 Problem Solvin Memory: 7 ADL-Treatment Feedin (noted increase diana. pt unable to scoop food or bring fork to mouth without all food spilling. ) Eating (QC): 1 Groomin Oral Hygiene (QC): 5 Bathin Bathing Location: L Arm, R Arm, Chest, Abdomen Shower/Bathe Self (QC): 2 Upper Extremity Dressin Upper Body Dressing (QC): 4 Lower Extremity Dressin Lower Body Dressing (QC): 1 On/Off Footwear (QC): 1 Toiletin (Help with clothing management) Toileting Hygiene (QC): 1 Toilet/Commode Transfer: 4 (min assist) Assessment/Plan Assessment and Plan Assess & Plan/Chief Complaint Assessment: Debility requiring IRF prior to returning back to [facility] Tremors-improved on magnesium Permanent pacemaker PAF CAD Chronic edema Chronic diarrhea GERD PINKY on CPAP HTN Gout HLP DM PVD CRI Chronic bilateral foot drop Plan: IRF protocols Consult PCP Dr Spaulding is appreciated Home meds Consult Dr Sellers Monitor for falls Monitor diarrhea and Colonoscopy scheduled for today by Dr Rommel Miller supplement (1) Debility (2) Obesity (BMI 30.0-34.9) (3) Coarse tremors (4) Pacemaker (5) Falls (6) Hypertension (7) PAF (paroxysmal atrial fibrillation) (8) Hyperlipidemia (9) Edema (10) Diarrhea (11) Urinary retention SAMANTHA ALMAZAN DO Aug 27, 2018 08:25
--- NOTE | 2018-08-27 09:23 | Occupational Ther Daily Note ---
OT Current Status-Daily Note Subjective Pt said that he had been up all night with colonoscopy prep and labs but agreed to shower before procedure scheduled for later this morning. No pain mentioned. Appearance Alert, reluctantly cooperative Mental Status/Objective Patient Orientation: Person, Place, Time, Situation Therapy Code Descriptions/Definitions Functional [place] Measure: 0=Not Assessed/NA 4=Minimal Assistance 1=Total Assistance 5=Supervision or Setup 2=Maximal Assistance 6=Modified [place] 3=Moderate Assistance 7=Complete [place] ADL-Treatment Pt needed skilled cues for process for supine to sit, with help to get trunk up off bed. Sat EOB without assist. Sit to stand SBA, FWW. Walked to bathroom slowly and transferred on/off toilet with CGA, FWW. Pulled walker close and pushed up from bars on walker to stand. Managed clothing and hygiene, with setup. Walked CGA, FWW (slowly because his AFOs were not on) and transferred into shower with CGA, using FWW and grab bars. Washed and dried all parts with setup, including washing hair, seated on shower bench, hand held shower, grab bars. Used dressing stick to take slipper socks off before shower, with pt educ. Just dressed in hospital gown in prep for colonoscopy. Pt walked back to bed CGA, FWW and got into bed without help, recalling to "square up" walker. Sit to supine without help, recalling procedure. He declined grooming. Pt left up in bed, 4 rails up, all needs met. Therapy Code Descriptions/Definitions Functional [place] Measure: 0=Not Assessed/NA 4=Minimal Assistance 1=Total Assistance 5=Supervision or Setup 2=Maximal Assistance 6=Modified [place] 3=Moderate Assistance 7=Complete [place] Therapy Quality Codes: 6 Independent with activity with or without an assistive device 5 Patient requires set up or clean up by helper. Patient completes activity by themselves 4 Supervision or touching assist (CGA). [place] provide cues , steadying assist 3 The helper provides less than half the effort to complete the activity 2 The helper provides more than half the effort to complete the activity 1 Dependent. The helper does all the effort to complete an activity 7 Patient refused to complete or attempt activity 9 The patient did not perform the activity before the current illness or injury 88 Not attempted due to Medical conditions or safety concerns Bathing (FIM): 5 Toileting (FIM): 5 Toilet/Commode Transfer (FIM): 4 Shower Transfer(FIM): 4 Education OT Patient Education: Modified ADL techniques, Progress toward Goal/Update tx plan, Purpose of tx/functional activities, Transfer techniques, Use of adapted equipment Teaching Recipient: Patient Teaching Methods: Discussion Response to Teaching: Verbalize Understanding, Return Demonstration, Reinforcement Needed OT Short Term Goals Short Term Goals Eating(FIM): 4 Grooming(FIM): 4 Bathing(FIM): 4 Bathing Location: L Arm, R Arm, L Upper Leg, R Upper Leg, L Lower Leg (in cluding foot), R Lower Leg (including foot), Chest, Abdomen, Buttocks, Perineal Area Upper Body Dressing(FIM): 4 Lower Body Dressing(FIM): 4 Toileting(FIM): 4 Transfers (B,C,W/C) (FIM): 4 Toilet/Commode Transfer(FIM): 4 Tub Transfer(FIM): 4 Shower Transfer(FIM): 4 1=Demonstrate adherence to instructed precautions during ADL tasks. 2=Patient will verbalize/demonstrate understanding of assistive devices/modifications for ADL. 3=Patient will improve strength/tolerance for activity to enable patient to perform ADL's. OT Penitentiary Goals Penitentiary Goals Eating (FIM): 6 Eating (QC): 6 Groomin Oral Hygiene (QC): 6 Bathing(FIM): 6 Bathing Location: L Arm, R Arm, L Upper Leg, R Upper Leg, L Lower Leg (including foot), R Lower Leg (including foot), Chest, Abdomen, Buttocks, Perineal Area Shower/Bathe Self (QC): 6 Upper Body Dressing(FIM): 6 Upper Body Dressing (QC): 6 Lower Body Dressing(FIM): 6 Lower Body Dressing (QC): 6 On/Off Footwear (QC): 6 Toileting(FIM): 6 Toileting Hygiene (QC): 6 Transfers (B,C,W/C) (FIM): 6 Toilet/Commode Transfer(FIM): 6 Toilet/Commode Transfer (QC): 6 Shower Transfer(FIM): 6 Comprehension(FIM): 6 Expression (FIM): 6 Social Interaction(FIM): 6 Problem Solving(FIM): 6 Memory(FIM): 6 Additional Goals: 1-Demonstrate ADL Tasks, 2-Verbalize Understanding, 3- ImproveStrength/Tejal 1=Demonstrate adherence to instructed precautions during ADL tasks. 2=Patient will verbalize/demonstrate understanding of assistive devices/modifications for ADL. 3=Patient will improve strength/tolerance for activity to enable patient to perform ADL's. OT Education/Plan Discharge Recommendations Plan/Recommendations: Continue POC Treatment Plan/Plan of Care Patient would benefit from OT for education, treatment and training to promote independence in ADL's, mobility, safety and/or upper extremity function for ADL's. Plan of Care: ADL Retraining, Caregiver Training, Concurrent Therapy, Functional Mobility, Group Exercise/Act as Ind, UE Funct Exercise/Act, UE Neuromus Re-Ed/Coord Treatment Duration: Sep 18, 2018 Frequency: 5 times per week Estimated Hrs Per Day: 1.5 hours per day (60- 90 minutes per day) Rehab Potential: Good Time/GCodes Start Time: 08:30 Stop Time: 09:10 Total Time Billed (hr/min): 40 Billed Treatment Time visit, 40 minutes ADL ANDREA PANDYA OT Aug 27, 2018 09:23
--- NOTE | 2018-08-27 12:35 | Physical Therapy Daily Note ---
PT Daily Note-Current Subjective Pt laying Supine in bed upon arrival. Pt agrees to limited Supine Ex since pt is to have Colonoscopy shortly. Pain Location: No Pain Reported Mental Status Patient Orientation: Person, Place, Situation Transfers Therapy Code Descriptions/Definitions Functional [place] Measure: 0=Not Assessed/NA 4=Minimal Assistance 1=Total Assistance 5=Supervision or Setup 2=Maximal Assistance 6=Modified [place] 3=Moderate Assistance 7=Complete [place] Therapy Quality Codes: 6 Independent with activity with or without an assistive device 5 Patient requires set up or clean up by helper. Patient completes activity by themselves 4 Supervision or touching assist (CGA). [place] provide cues , steadying assist 3 The helper provides less than half the effort to complete the activity 2 The helper provides more than half the effort to complete the activity 1 Dependent. The helper does all the effort to complete an activity 7 Patient refused to complete or attempt activity 9 The patient did not perform the activity before the current illness or injury 88 Not attempted due to Medical conditions or safety concerns Weight Bearing Right Lower Extremity: Right Full Weight Bearing Left Lower Extremity: Left Full Weight Bearing Exercises Supine Ex: Ankle pumps, Quad Set, Glut sets, Straight leg raise, Hip abd/add Supine Reps: 15 Treatments Pt completes Supine Ex in bed with a couple short RB. Pt has all needs met and wanting to rest before procedure. Assessment Current Status: Fair Progress Pt reports feet & legs cold during tx due to circulation and Neuropathy. Pt fatigues easy. PT Short Term Goals Short Term Goals Time Frame: Aug 28, 2018 Transfers (B,C,W/C) (FIM): 4 Gait (FIM): 4 Distance (FIM): 3=150 ft Gait Assistive Device: FWW PT [place] Filter Operator Goals [place] Filter Operator Goals PT Group Home Goals Time Frame: Sep 08, 2018 Transfers (B,C,W/C) (FIM): 6 Sit to Lying (QC): 6 Lying-Sitting on Side/Bed(QC): 6 Sit to Stand (QC): 6 Roll Left to Right (QC): 6 Chair/Uqo-ex-Buygu Xfer(QC): 6 Car Transfer (QC): 6 Does the Patient Walk: Yes Gait (FIM): 6 Gait distance (FIM): 3=150 ft Walk 10 feet (QC): 6 Walk 10ft-Uneven Surface(QC): 6 Walk 50ft with 2 Turns (QC): 6 Walk 150 ft (QC): 6 Gait Assistive Device: FWW Stairs (FIM): 5 (household) # of Steps: 4 1 Step (curb) (QC): 6 4 Steps (QC): 6 12 Steps (QC): 88 Picking up an Object (QC): 4 PT Plan Problem List Problem List: Activity Tolerance, Functional Strength Treatment/Plan Treatment Plan: Continue Plan of Care Treatment Plan: Bed Mobility, Education, Functional Activity Tejal, Functional Strength, Group Therapy, Gait, Safety, Therapeutic Exercise, Transfers Treatment Duration: Sep 08, 2018 Frequency: At least 5 of 7 days/Wk (IRF) Estimated Hrs Per Day: 1.5 hours per day Patient and/or Family Agrees t: Yes Safety Risks/Education Patient Education: Transfer Techniques, Correct Positioning, Safety Issues Teaching Recipient: Patient Teaching Methods: Discussion Response to Teaching: Verbalize Understanding Time/GCodes Time In: 1000 Time Out: 1030 Total Billed Treatment Time: 30 Total Billed Treatment 1, EX (20m) & FA (10m) G Codes Necessary: NERY Osorio PTA Aug 27, 2018 12:35
--- NOTE | 2018-08-27 13:30 | NUR ---
Patient taken to surgery for colonoscopy via wheelchair by surgical staff.
--- NOTE | 2018-08-27 15:25 | NUR ---
Patient returned to room from surgery, no complaints of pain or nausea/vomiting. Awaiting surgeons orders.
[2018-08-27 17:46] VITALS: BP 121/86
[2018-08-27] MEDS: FINASTERIDE (PROSCAR) 5 MG TAB PO SCH (18:28)
[2018-08-27] MEDS: GABAPENTIN 100 MG (NEURONTIN) CAP PO SCH (18:28)
[2018-08-27] MEDS: VITAMIN D3 1,000 UNITS (CHOLECALCIFEROL) TABLET PO SCH (18:28)
[2018-08-27] MEDS: CYANOCOBALAMIN 1,000 MCG (VITAMIN B-12) TABLET PO SCH (18:28)
--- NOTE | 2018-08-27 21:45 | OPERATIVE REPORT ---
DATE OF SERVICE: 08/27/2018 ATTENDING PHYSICIAN: Leann Spaulding MD ADMITTING PHYSICIAN: Dr. Pérez. PREOPERATIVE DIAGNOSES: Diarrhea with history of colon polyps. POSTOPERATIVE DIAGNOSES: Mild chronic stage II external and internal hemorrhoids, mild to moderate sigmoid diverticulosis. PROCEDURE: Colonoscopy. SURGEON: Walker Carney MD ANESTHESIA: Conscious sedation. ESTIMATED BLOOD LOSS: Minimal. FINDINGS: As above with no polyps or any neoplasms identified as well as no bleeding sources. DISPOSITION: The patient tolerated the procedure well. INDICATIONS: The patient is an 83-year-old male who was admitted to inpatient rehabilitation from the Emergency Department due to severe weakness and debility. He resides at an assisted living institution for the past 5 years with his . He was admitted for severe diarrhea as well as profound dehydration requiring IV fluids and metronidazole and he did improve with this. This gentleman was who had already been seen in the office and was scheduled for a colonoscopy for history of polyps as well. Since being admitted to inpatient rehabilitation, he has improved significantly. No episodes of diarrhea nor constipation as well as no red blood per rectum nor any dark tarry stools. DESCRIPTION OF PROCEDURE: The patient was brought to the endoscopy suite, laid in the left lateral decubitus position. After adequate IV pain and sedative medications and conscious sedation anesthesia, a digital rectal examination was performed. Mild chronic stage II external and internal hemorrhoids were identified, which were not actively edematous nor inflamed and no bleeding. Normal sphincter tone was felt and there were no palpable masses. Prostate gland was palpable and appeared normal. The endoscope was then intubated to the anus and rectum gently insufflated. The endoscope was then advanced through the valves of [place] of the rectum with no polyps or any neoplasms identified. We then proceeded through the sigmoid colon where mild to moderate sigmoid diverticulosis identified. There were no mucosal inflammatory changes to indicate any active diverticulitis. The endoscope was then advanced to the remainder of the descending, transverse and ascending colon to the cecum. These segments were normal. There were no polyps or any neoplasms identified throughout the colon or rectum. There were also no mucosal inflammatory change to indicate colitis and a potential cause for his previous diarrhea. Endoscope was then slowly withdrawn while taking a second look and suctioning residual air with no additional findings. The patient tolerated the procedure well. We will recommend continued medical management with a high fiber diet with at least 25 to 30 grams of fiber daily as well as significant amounts of water to prevent dehydration as well as to promote soft stools on a daily basis. It does not appear that he has a family history of colon cancer and if he is doing well otherwise, he may wait 10 years for his next colonoscopy. Job ID: [id number] DocumentID: [id number] Dictated Date: 08/27/2018 14:56:25 [employer] Date: 08/27/2018 21:44:33 Dictated By: WALKER CARNEY MD
[2018-08-27] MEDS: TAMSULOSIN 0.4 MG (FLOMAX) CAP PO SCH (21:48)
[2018-08-28 03:45] VITALS: BP 117/76
[2018-08-28] MEDS: amLODIPine 5 MG (NORVASC) TAB PO SCH (05:45)
[2018-08-28] MEDS: VITAMIN D3 1,000 UNITS (CHOLECALCIFEROL) TABLET PO SCH (05:45)
[2018-08-28] MEDS: ACETAMINOPHEN 325 MG TABLET PO SCH ×2 (05:45→20:23)
[2018-08-28] MEDS: CYANOCOBALAMIN 1,000 MCG (VITAMIN B-12) TABLET PO SCH (05:45)
[2018-08-28] MEDS: ALLOPURINOL 100 MG (ZYLOPRIM) TAB PO SCH ×2 (05:45→20:23)
[2018-08-28] MEDS: LIPASE/AMYLASE/PROTEASE (PANCRELIPASE) 5,000 UNITS CAP PO SCH ×3 (05:45→17:24)
[2018-08-28] MEDS: LACTOBACILLUS ACIDOPHILUS (PROBIOTIC) CAPSULE PO SCH ×2 (05:45→20:22)
[2018-08-28] MEDS: inSUlin ASPART (NovoLOG) 1 UNIT/0.01 ML (CHARGE PER UNIT) SC SCH ×4 (05:46→21:00)
[2018-08-28] MEDS: FINASTERIDE (PROSCAR) 5 MG TAB PO SCH (05:46)
--- NOTE | 2018-08-28 08:26 | NUR ---
MANAGER OF ORGANIZATIONAL DEVELOPMENT met with patient to review team conference summary, MANAGER OF ORGANIZATIONAL DEVELOPMENT was unable to review with patient yesterday as patient was out of room for colonoscopy. As patient is performing all activities with standby assist and has reached his baseline function, team has recommended patient return to assisted living at [facility] tomorrow. Patient is eager to discharge and expresses no concerns with this recommendation. Patient has all necessary equipment at assisted living. MANAGER OF ORGANIZATIONAL DEVELOPMENT reviewed recommendation of [facility] PT; however, patient is not interested at this time, as he states the staff assist him with any physical needs. Patient intends to contact his to inquire about timeframe for ability to transport tomorrow.
[2018-08-28] MEDS: ASPIRIN 81 MG CHEW (CHILDREN'S ASA) PO SCH (08:42)
[2018-08-28] MEDS: GABAPENTIN 100 MG (NEURONTIN) CAP PO SCH (08:42)
--- NOTE | 2018-08-28 11:00 | PM&R Progress Note ---
Subjective HPI/CC On Admission Date Seen by Provider: Aug 28, 2018 Time Seen by Provider: 08:30 CC: Debility HPI: This is a an elderly patient [address] Spaulding who was admitted to the inpatient rehab unit directly from ER due to severe weakness and debility. He resides at [facility] normally for the past five years. His accompanies him today. Apparently he had severe diarrhea and profound dehydration requiring two ER hospital visits which resulted in IV fluids and Flagyl initiated with good resolution of the diarrhea of which he actually completed but presented to the ER due to severe weakness. Dr. Spaulding recommended inpatient rehab unit and he was accepted after evaluation and he will be placed in the inpatient rehab protocol with intensive therapies in order to return back to [facility]. I did visit with his and his son will be in to see him later. 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 Overall he denies any pain except where the catheter was placed in order to get a urine sample. I did review his ER labs and imaging scans. His prior level of functioning was moderate independent at [facility]. Subjective/Events-last exam Pt looking forward to going home tomorrow Colonoscopy yesterday and reviewed results Plavix and ASA restarted DC tomorrow Appreciate Dr. Carney Motivation is poor chronically Conferred with cold roll operator of Systems General: Fatigue Objective Exam Vital Signs Vital Signs Date Time Temp Pulse Resp B/P (MAP) Pulse Ox O2 Delivery O2 Flow Rate FiO2 08/28/18 16:03 97.3 79 16 109/69 (82) 95 Room Air Capillary Refill : General Appearance: No Apparent Distress, WD/WN, Chronically ill, Obese HEENT: PERRL/EOMI, Normal ENT Inspection, Pharynx Normal, Moist Mucous Membranes Neck: Full Range of Motion, Normal Inspection, Non Tender, Supple Respiratory: Chest Non Tender, Lungs Clear, Normal Breath Sounds, No Accessory Muscle Use, No Respiratory Distress Cardiovascular: Regular Rate, Rhythm, No Edema, No Gallop, No JVD, No Murmur Gastrointestinal: Normal Bowel Sounds, No Organomegaly, No Pulsatile Mass, Non Tender, Soft Back: Normal Inspection, No CVA Tenderness, No Vertebral Tenderness Extremity: Normal Capillary Refill, Normal Inspection, Normal Range of Motion, Non Tender, No Calf Tenderness, No Pedal Edema Neurologic/Psychiatric: Alert, Oriented x3, Normal Mood/Affect, Motor Weakness (generalized weakness all extremities) Skin: Normal Color, Warm/Dry Lymphatic: No Adenopathy Results/Procedures Lab Patient resulted labs reviewed. FIM Transfers Therapy Code Descriptions/Definitions Functional [place] Measure: 0=Not Assessed/NA 4=Minimal Assistance 1=Total Assistance 5=Supervision or Setup 2=Maximal Assistance 6=Modified [place] 3=Moderate Assistance 7=Complete [place] Therapy Quality Codes: 6 Independent with activity with or without an assistive device 5 Patient requires set up or clean up by helper. Patient completes activity by themselves 4 Supervision or touching assist (CGA). [place] provide cues , steadying assist 3 The helper provides less than half the effort to complete the activity 2 The helper provides more than half the effort to complete the activity 1 Dependent. The helper does all the effort to complete an activity 7 Patient refused to complete or attempt activity 9 The patient did not perform the activity before the current illness or injury 88 Not attempted due to Medical conditions or safety concerns Transfers (B, C, W/C) (FIM): 5 Scootin Roll Left to Right (QC): 3 Supine to/from Sit: 5 Sit to/from Stand: 5 Sit to Lying (QC): 3 Sit to Stand (QC): 2 Chair/Xuu-mb-Lketd Xfer(QC): 2 (max assist due to "jerky" movements in standing; unsafe to stand without assist.) Bed to/from Chair: 5 Car Transfer (QC): 2 Gait Training Does the Patient Walk?: Yes Gait (FIM): 1 Distance (FIM): 3=150 ft Distance: 5' Walk 10 feet (QC): 4 Walk 50 ft with 2 Turns(QC): 4 Walk 150 ft (QC): 4 Walking 10ft/uneven surface-QC: 88 Gait Level of Assist: 5 Gait Persons Needed: 1 Gait Assistive Device: FWW Wheelchair Training Does the Pt Use a Wheelchair?: No Stair Training Stair Training: Handrails/: 2 handrails Stairs (FIM): 0 #of Steps: 4 (ascend and descend) 1 Step (curb) (QC): 88 4 Steps (QC): 88 12 Steps (QC): 88 Stairs: Pattern: Step to Level of Assist: 4 (guarded CGA due to pt report of increased tired and weakness) Balance Picking up an Object (QC): 88 Mental Status/Objective Comprehension: 7 Expression: 7 Social Interaction: 7 Problem Solvin Memory: 7 ADL-Treatment Feedin (noted increase diana. pt unable to scoop food or bring fork to mouth without all food spilling. ) Eating (QC): 1 Groomin Oral Hygiene (QC): 5 Bathin Bathing Location: L Arm, R Arm, Chest, Abdomen Shower/Bathe Self (QC): 2 Upper Extremity Dressin Upper Body Dressing (QC): 4 Lower Extremity Dressin Lower Body Dressing (QC): 1 On/Off Footwear (QC): 1 Toiletin Toileting Hygiene (QC): 1 Toilet/Commode Transfer: 4 Shower: 4 Assessment/Plan Assessment and Plan Assess & Plan/Chief Complaint Assessment: Debility requiring IRF prior to returning back to [facility] Tremors-improved on magnesium Permanent pacemaker PAF CAD Chronic edema Chronic diarrhea with essentially no new findings on the c-scope GERD PINKY on CPAP HTN Gout HLP DM PVD CRI Chronic bilateral foot drop Plan: IRF protocols Consult PCP Dr Spaulding is appreciated Home meds Consult Dr Sellers Monitor for falls Mag supplement DC tomorrow (1) Debility (2) Obesity (BMI 30.0-34.9) (3) Coarse tremors (4) Pacemaker (5) Falls (6) Hypertension (7) PAF (paroxysmal atrial fibrillation) (8) Hyperlipidemia (9) Edema (10) Diarrhea (11) Urinary retention SAMANTHA ALMAZAN DO Aug 28, 2018 11:00
--- NOTE | 2018-08-28 13:50 | Occupational Ther Daily Note ---
OT Current Status-Daily Note Subjective Pt seen in room, up in bed, agreeable to OT. No pain mentioned. Appearance Alert, reluctantly cooperative. Mental Status/Objective Therapy Code Descriptions/Definitions Functional [place] Measure: 0=Not Assessed/NA 4=Minimal Assistance 1=Total Assistance 5=Supervision or Setup 2=Maximal Assistance 6=Modified [place] 3=Moderate Assistance 7=Complete [place] ADL-Treatment Pt reported no problems with feeding himself, opening packages, cutting food. Supine to sit EOB without help, difficulty scooting to EOB but able to do it. Sit to stand SBA, cues for hand placement, FWW. walked SBA, FWW to bathroom and transferred on/off tall toilet with SBA, FWW, grab bar. Managed clothing and hygiene SBA. Walked to shower and completed transfer with SBA, shower bench, grab bar, FWW. Pt washed and dried all parts with setup. Walked back to sit EOB with SBA, FWW. Donned shirt with setup and managed snaps. Donned Depends with SBA, pt educ modified technique and use of dressing stick. SBA to pull pants up, FWW. Donned slacks and pulled them up with SBA, setup to fasten suspender on pants. Needed help to put on socks and AFO/shoes and fasten them. Pt reported that he has help to do this at [place]. Transferred to recliner with SBA, FWW, cues for hand placement on bed. Pt left up in recliner, all needs met. Therapy Code Descriptions/Definitions Functional [place] Measure: 0=Not Assessed/NA 4=Minimal Assistance 1=Total Assistance 5=Supervision or Setup 2=Maximal Assistance 6=Modified [place] 3=Moderate Assistance 7=Complete [place] Therapy Quality Codes: 6 Independent with activity with or without an assistive device 5 Patient requires set up or clean up by helper. Patient completes activity by themselves 4 Supervision or touching assist (CGA). [place] provide cues , steadying assist 3 The helper provides less than half the effort to complete the activity 2 The helper provides more than half the effort to complete the activity 1 Dependent. The helper does all the effort to complete an activity 7 Patient refused to complete or attempt activity 9 The patient did not perform the activity before the current illness or injury 88 Not attempted due to Medical conditions or safety concerns Eating (FIM): 6 Eating (QC): 6 Bathing (FIM): 5 (setup. hand held shower) Shower/Bathe Self (QC): 5 (setup) Upper Body (FIM): 5 (setup) Upper Body Dressing (QC): 5 (setup) Lower Body Dressing (FIM): 4 (min assist to put on socks and shoes) Lower Body Dressing (QC): 4 (SBA) On/Off Footwear (QC): 2 (max for putting on socks and AFO/shoes) Toileting (FIM): 5 (SBA) Toileting Hygiene (QC): 4 (SBA) Toilet/Commode Transfer (FIM): 5 (SBA) Toilet Transfer (QC): 4 (SBA) Shower Transfer(FIM): 5 (SBA) Education OT Patient Education: Modified ADL techniques, Progress toward Goal/Update tx plan, Purpose of tx/functional activities, Safety issues, Transfer techniques, Use of adapted equipment Teaching Recipient: Patient Teaching Methods: Demonstration, Discussion Response to Teaching: Verbalize Understanding, Return Demonstration, Reinforcement Needed OT Short Term Goals Short Term Goals Eating(FIM): 4 Grooming(FIM): 4 Bathing(FIM): 4 Bathing Location: L Arm, R Arm, L Upper Leg, R Upper Leg, L Lower Leg (including foot), R Lower Leg (including foot), Chest, Abdomen, Buttocks, Perineal Area Upper Body Dressing(FIM): 4 Lower Body Dressing(FIM): 4 Toileting(FIM): 4 Transfers (B,C,W/C) (FIM): 4 Toilet/Commode Transfer(FIM): 4 Tub Transfer(FIM): 4 Shower Transfer(FIM): 4 1=Demonstrate adherence to instructed precautions during ADL tasks. 2=Patient will verbalize/demonstrate understanding of assistive devices/modifications for ADL. 3=Patient will improve strength/tolerance for activity to enable patient to perform ADL's. OT Prison Goals Book Critic Goals Eating (FIM): 6 Eating (QC): 6 Groomin Oral Hygiene (QC): 6 Bathing(FIM): 6 Bathing Location: L Arm, R Arm, L Upper Leg, R Upper Leg, L Lower Leg (including foot), R Lower Leg (including foot), Chest, Abdomen, Buttocks, Perineal Area Shower/Bathe Self (QC): 6 Upper Body Dressing(FIM): 6 Upper Body Dressing (QC): 6 Lower Body Dressing(FIM): 6 Lower Body Dressing (QC): 6 On/Off Footwear (QC): 6 Toileting(FIM): 6 Toileting Hygiene (QC): 6 Transfers (B,C,W/C) (FIM): 6 Toilet/Commode Transfer(FIM): 6 Toilet/Commode Transfer (QC): 6 Shower Transfer(FIM): 6 Comprehension(FIM): 6 Expression (FIM): 6 Social Interaction(FIM): 6 Problem Solving(FIM): 6 Memory(FIM): 6 Additional Goals: 1-Demonstrate ADL Tasks, 2-Verbalize Understanding, 3- ImproveStrength/Tejal 1=Demonstrate adherence to instructed precautions during ADL tasks. 2=Patient will verbalize/demonstrate understanding of assistive mani rafael/modifications for ADL. 3=Patient will improve strength/tolerance for activity to enable patient to perform ADL's. OT Education/Plan Discharge Recommendations Plan/Recommendations: Continue POC Treatment Plan/Plan of Care Patient would benefit from OT for education, treatment and training to promote independence in ADL's, mobility, safety and/or upper extremity function for ADL's. Plan of Care: ADL Retraining, Caregiver Training, Concurrent Therapy, Functional Mobility, Group Exercise/Act as Ind, UE Funct Exercise/Act, UE Neuromus Re-Ed/Coord Treatment Duration: Sep 18, 2018 Frequency: 5 times per week Estimated Hrs Per Day: 1.5 hours per day (60- 90 minutes per day) Rehab Potential: Good Time/GCodes Start Time: 08:45 Stop Time: 09:45 Total Time Billed (hr/min): 60 Billed Treatment Time visit, 60 minutes ADL ANDREA PANDYA OT Aug 28, 2018 13:50
--- NOTE | 2018-08-28 14:45 | Physical Therapy Daily Note ---
PT Daily Note-Current Subjective Pt sitting in recliner upon arrival. Pt agrees to PT for FIM scoring for D/C/ Pain Location: No Pain Reported Mental Status Patient Orientation: Person, Place, Time, Situation Transfers Therapy Code Descriptions/Definitions Functional [place] Measure: 0=Not Assessed/NA 4=Minimal Assistance 1=Total Assistance 5=Supervision or Setup 2=Maximal Assistance 6=Modified [place] 3=Moderate Assistance 7=Complete [place] Therapy Quality Codes: 6 Independent with activity with or without an assistive device 5 Patient requires set up or clean up by helper. Patient completes activity by themselves 4 Supervision or touching assist (CGA). [place] provide cues , steadying assist 3 The helper provides less than half the effort to complete the activity 2 The helper provides more than half the effort to complete the activity 1 Dependent. The helper does all the effort to complete an activity 7 Patient refused to complete or attempt activity 9 The patient did not perform the activity before the current illness or injury 88 Not attempted due to Medical conditions or safety concerns Transfers (B, C, W/C) (FIM): 6 Scootin Rollin Roll Left to Right (QC): 7 Supine to/from Sit: 6 Sit to/from Stand: 6 Sit to Lying (QC): 6 Sit to Stand (QC): 6 Chair/Dut-qh-Uboqs Xfer(QC): 6 Bed to/from Chair: 6 Car Transfer (QC): 6 Weight Bearing Right Lower Extremity: Right Full Weight Bearing Left Lower Extremity: Left Full Weight Bearing Gait Training Does the Patient Walk?: Yes Gait (FIM): 6 Distance (FIM): 3=150 ft Distance: 225' Walk 10 feet (QC): 6 Walk 50 ft with 2 Turns(QC): 6 Walk 150 ft (QC): 6 Walking 10ft/uneven surface-QC: 6 Gait Level of Assist: 6 Gait Persons Needed: 1 Gait Assistive Device: FWW Wheelchair Training Does the Pt Use a Wheelchair?: No Stair Training Stair Training: Handrails/: 2 handrails Stairs (FIM): 2 #of Steps: 4 1 Step (curb) (QC): 5 4 Steps (QC): 5 12 Steps (QC): 88 Stairs: Pattern: Step to Level of Assist: 5 Pt fatigues after 1 set of 4 steps. Pt does not have any stairs at [place] after D/C. Balance Picking up an Object (QC): 88 Special Test Comments This is a safety concern and pt will not be bending over to filler picker objects, has primary operator. Treatments Pt completes FIM scoring items including bed mobility, transfers including car transfer, ambulation including across varying surface and stairs. Pt returns to room to use restroom and to rest in recliner at end of tx. Pt has all needs met. Assessment Current Status: Good Progress Pt is ready to D/C as he reports. Pt fatigues and activity tolerance is at PLOF. PT Short Term Goals Short Term Goals Time Frame: Aug 28, 2018 Transfers (B,C,W/C) (FIM): 4 Gait (FIM): 4 Distance (FIM): 3=150 ft Gait Assistive Device: FWW PT Assisted Goals Assisted Goals PT Assisted Goals Time Frame: Sep 08, 2018 Transfers (B,C,W/C) (FIM): 6 Sit to Lying (QC): 6 Lying-Sitting on Side/Bed(QC): 6 Sit to Stand (QC): 6 Roll Left to Right (QC): 6 Chair/Ekh-jn-Joezr Xfer(QC): 6 Car Transfer (QC): 6 Does the Patient Walk: Yes Gait (FIM): 6 Gait distance (FIM): 3=150 ft Walk 10 feet (QC): 6 Walk 10ft-Uneven Surface(QC): 6 Walk 50ft with 2 Turns (QC): 6 Walk 150 ft (QC): 6 Gait Assistive Device: FWW Stairs (FIM): 5 (household) # of Steps: 4 1 Step (curb) (QC): 6 4 Steps (QC): 6 12 Steps (QC): 88 Picking up an Object (QC): 4 PT Plan Problem List Problem List: Activity Tolerance Treatment/Plan Treatment Plan: Continue Plan of Care Treatment Plan: Bed Mobility, Education, Functional Activity Tejal, Functional Strength, Group Therapy, Gait, Safety, Therapeutic Exercise, Transfers Treatment Duration: Sep 08, 2018 Frequency: At least 5 of 7 days/Wk (IRF) Estimated Hrs Per Day: 1.5 hours per day Patient and/or Family Agrees t: Yes Safety Risks/Education Patient Education: Gait Training, Transfer Techniques, Steps, Correct Positioning, Safety Issues Teaching Recipient: Patient Teaching Methods: Discussion Response to Teaching: Verbalize Understanding Time/GCodes Time In: 1100 Time Out: 1200 Total Billed Treatment Time: 60 Total Billed Treatment 1, GT (15m) & FA x3 (45m) G Codes Necessary: NERY Osorio ENDOSCOPY SPECIALTY TECHNICIAN Aug 28, 2018 14:45
--- NOTE | 2018-08-28 15:19 | Occupational Ther Daily Note ---
OT Current Status-Daily Note Subjective Pt alert, sitting in recliner. Pt agrees to therapy. No c/o pain at this time. Mental Status/Objective Patient Orientation: Person, Place, Time, Situation Therapy Code Descriptions/Definitions Functional [place] Measure: 0=Not Assessed/NA 4=Minimal Assistance 1=Total Assistance 5=Supervision or Setup 2=Maximal Assistance 6=Modified [place] 3=Moderate Assistance 7=Complete [place] ADL-Treatment Therapy Code Descriptions/Definitions Functional [place] Measure: 0=Not Assessed/NA 4=Minimal Assistance 1=Total Assistance 5=Supervision or Setup 2=Maximal Assistance 6=Modified [place] 3=Moderate Assistance 7=Complete [place] Therapy Quality Codes: 6 Independent with activity with or without an assistive device 5 Patient requires set up or clean up by helper. Patient completes activity by themselves 4 Supervision or touching assist (CGA). [place] provide cues , steadying assist 3 The helper provides less than half the effort to complete the activity 2 The helper provides more than half the effort to complete the activity 1 Dependent. The helper does all the effort to complete an activity 7 Patient refused to complete or attempt activity 9 The patient did not perform the activity before the current illness or injury 88 Not attempted due to Medical conditions or safety concerns Oral Hygiene (QC): 5 (Pt states that he isn't able to complete oral care standing up due to decreased balance that requires him to keep one hand on counter. In sitting, pt able to completed oral care.) OT Short Term Goals Short Term Goals Eating(FIM): 4 Grooming(FIM): 4 Bathing(FIM): 4 Bathing Location: L Arm, R Arm, L Upper Leg, R Upper Leg, L Lower Leg (including foot), R Lower Leg (including foot), Chest, Abdomen, Buttocks, Perineal Area Upper Body Dressing(FIM): 4 Lower Body Dressing(FIM): 4 Toileting(FIM): 4 Transfers (B,C,W/C) (FIM): 4 Toilet/Commode Transfer(FIM): 4 Tub Transfer(FIM): 4 Shower Transfer(FIM): 4 1=Demonstrate adherence to instructed precautions during ADL tasks. 2=Patient will verbalize/demonstrate understanding of assistive devices/modifications for ADL. 3=Patient will improve strength/tolerance for activity to enable patient to perform ADL's. OT Care Home Goals Physician Asst Goals Eating (FIM): 6 Eating (QC): 6 Groomin Oral Hygiene (QC): 6 (not met) Bathing(FIM): 6 Bathing Location: L Arm, R Arm, L Upper Leg, R Upper Leg, L Lower Leg (including foot), R Lower Leg (including foot), Chest, Abdomen, Buttocks, Perineal Area Shower/Bathe Self (QC): 6 Upper Body Dressing(FIM): 6 Upper Body Dressing (QC): 6 Lower Body Dressing(FIM): 6 Lower Body Dressing (QC): 6 On/Off Footwear (QC): 6 Toileting(FIM): 6 Toileting Hygiene (QC): 6 Transfers (B,C,W/C) (FIM): 6 Toilet/Commode Transfer(FIM): 6 Toilet/Commode Transfer (QC): 6 Shower Transfer(FIM): 6 Comprehension(FIM): 6 Expression (FIM): 6 Social Interaction(FIM): 6 Problem Solving(FIM): 6 Memory(FIM): 6 Additional Goals: 1-Demonstrate ADL Tasks, 2-Verbalize Understanding, 3- ImproveStrength/Tejal 1=Demonstrate adherence to instructed precautions during ADL tasks. 2=Patient will verbalize/demonstrate understanding of assistive devices/modifications for ADL. 3=Patient will improve strength/tolerance for activity to enable patient to perform ADL's. OT Education/Plan Problem List/Assessment Assessment: Impaired Funct Balance, Impaired Self-Care Skills Discharge Recommendations Plan/Recommendations: Continue POC Treatment Plan/Plan of Care Patient would benefit from OT for education, treatment and training to promote independence in ADL's, mobility, safety and/or upper extremity function for ADL's. Plan of Care: ADL Retraining, Caregiver Training, Concurrent Therapy, Functional Mobility, Group Exercise/Act as Ind, UE Funct Exercise/Act, UE Neuromus Re-Ed/Coord Treatment Duration: Sep 18, 2018 Frequency: 5 times per week Estimated Hrs Per Day: 1.5 hours per day (60- 90 minutes per day) Rehab Potential: Good Time/GCodes Start Time: 15:00 Stop Time: 15:10 Total Time Billed (hr/min): 10 Billed Treatment Time 1 visit-ADL 1 (10 min) MATTHEW TOPETE Aug 28, 2018 15:19
--- NOTE | 2018-08-28 15:37 | Therapy Group Daily Note ---
Therapy Daily Group Note Patient Education Topic Other List Below (Memory Strategies) Exercises Sit to/from Stand Session Ratio (pt:therapist): 4:1 Goal of Session: Education on ARU Expectations, Memory Strategies, Safety with Transfers Goal Met for this Session: Yes Pt Benefit of Group: Contributions to Others, F/U Use of Strategies @Home, Increased Functional Safety, Increased Functional Strength, Improved Cognition, Recognition of Peers, Socialization Other/Notes Pt participated in group introductions and recall of favorite summer activities. His favorite summer activity is fishing. He then actively engaged in providing ideas and suggestions and how to remember to take his medications and when to take them. He participated in sit to stand training with cues for correct sequencing to stand up and tossed a nuñez bag to challenge his balance in standing. Group concluded with a game of "memory" with matching pictures requiring him to participate and actively participate. Pt was able to make one match. Pt was engaged and seemed to enjoy group. Pt returned to room after group and sat up in his chair with needs met. Start Time: 13:00 Stop Time: 14:15 Total Billed Treatment Time: 75 Total Billed Treatment 1, NERY FLYNN FRINGING MACHINE OPERATOR Aug 28, 2018 15:37
[2018-08-28 16:03] VITALS: BP 109/69
[2018-08-28] MEDS ORDERED: AMYLASE PO (16:40)
[2018-08-28] MEDS ORDERED: LIPASE PO (16:40)
[2018-08-28] MEDS ORDERED: PROTEASE PO (16:40)
--- NOTE | 2018-08-28 19:08 | NUR ---
bedside report received from ARELY MCKINNEY, assume care of pt
[2018-08-28] MEDS: TAMSULOSIN 0.4 MG (FLOMAX) CAP PO SCH (20:23)
[2018-08-28] MEDS: CLOPIDOGREL 75 MG (PLAVIX) TABLET PO SCH (20:23)
--- NOTE | 2018-08-28 20:23 | NUR ---
given scheduled tylenol 325mg states no pain on numeric scale, fsbs 191 no ss insulin given
--- NOTE | 2018-08-28 21:00 | NUR ---
assessments & interventions completed, see assessments & interventions
--- NOTE | 2018-08-28 21:15 | NUR ---
states pain is still 0/10 on numeric scale
[2018-08-29 06:17] VITALS: BP 127/76
[2018-08-29] MEDS: inSUlin ASPART (NovoLOG) 1 UNIT/0.01 ML (CHARGE PER UNIT) SC SCH (06:23)
[2018-08-29] MEDS: LACTOBACILLUS ACIDOPHILUS (PROBIOTIC) CAPSULE PO SCH (06:35)
[2018-08-29] MEDS: VITAMIN D3 1,000 UNITS (CHOLECALCIFEROL) TABLET PO SCH (06:35)
[2018-08-29] MEDS: LIPASE/AMYLASE/PROTEASE (PANCRELIPASE) 5,000 UNITS CAP PO SCH (06:35)
[2018-08-29] MEDS: ACETAMINOPHEN 325 MG TABLET PO SCH (06:36)
[2018-08-29] MEDS: amLODIPine 5 MG (NORVASC) TAB PO SCH (06:36)
[2018-08-29] MEDS: ALLOPURINOL 100 MG (ZYLOPRIM) TAB PO SCH (06:36)
[2018-08-29] MEDS: FINASTERIDE (PROSCAR) 5 MG TAB PO SCH (06:36)
[2018-08-29] MEDS: CYANOCOBALAMIN 1,000 MCG (VITAMIN B-12) TABLET PO SCH (06:36)
--- NOTE | 2018-08-29 07:05 | NUR ---
bedside report given to ANCELMO MCKINNEY
[2018-08-29] MEDS: GABAPENTIN 100 MG (NEURONTIN) CAP PO SCH (08:11)
[2018-08-29] MEDS: ASPIRIN 81 MG CHEW (CHILDREN'S ASA) PO SCH (08:11)
--- NOTE | 2018-08-29 09:13 | Discharge Summary ---
Diagnosis/Chief Complaint Date of Admission August 21, 2018 at 09:52 Date of Discharge Discharge Date: Aug 28, 2018 Discharge Diagnosis Assessment: Debility requiring IRF prior to returning back to [facility] Tremors-improved on magnesium Permanent pacemaker PAF CAD Chronic edema Chronic diarrhea with essentially no new findings on the c-scope GERD PINKY on CPAP HTN Gout HLP DM PVD CRI Chronic bilateral foot drop Plan: IRF protocols Consult PCP Dr Spaulding is appreciated Home meds Consult Dr Sellers Monitor for falls Mag supplement DC tomorrow (1) Debility (2) Obesity (BMI 30.0-34.9) (3) Coarse tremors (4) Pacemaker (5) Falls (6) Hypertension (7) PAF (paroxysmal atrial fibrillation) (8) Hyperlipidemia (9) Edema (10) Diarrhea (11) Urinary retention Discharge Summary Discharge Physical Examination Allergies: Coded Allergies: metformin (Verified Adverse Reaction, Mild, 08/27/18) Vitals & I&Os Vital Signs Date Time Temp Pulse Resp B/P (MAP) Pulse Ox O2 Delivery O2 Flow Rate FiO2 08/29/18 09:00 Room Air 08/29/18 06:17 97.9 80 16 127/76 (93) 95 General Appearance: Alert, Oriented X3, Cooperative Respiratory: Clear to Auscultation, Normal Air Movement Cardiovascular: Regular Rate, Normal S1, Normal S2 Abdominal: Normal Bowel Sounds Neuro: Normal Gait, Normal Speech, Strength at 5/5 X4 Ext Psych/Mental Status: Mental Status NL, Mood NL Hospital Course Was the Problem List Reviewed?: Yes Hospital course: Patient had an uneventful night day hospital course in the inpatient rehabilitation unit. Patient was admitted after presenting to the ER with severe generalized weakness and chronic diarrhea. He was able to participate in all therapies after magnesium was given to replace the low level and cause the tremors to completely discontinue. Cardiology was consulted to evaluate the pacemaker. Dr. Spaulding maintain primary care family practice medical management during his hospital stay. Dr. Carney perform colonoscopy on Saturday revealing some sigmoid diverticulosis but no evidence of any colitis causing the diarrhea. He did respond to Creon with good results. Overall he was much improved and return to his prior level of functioning in order to succeed in assisted living. Labs (last 24 hrs) Laboratory Tests 08/21/18 07:50: Erythrocyte Sedimentation Rate 24, Magnesium Level 1.7L, C-Reactive Protein High Sensitivity 0.15, Amylase Level 65, Lipase 44, Vitamin B12 Level 1158H, Vitamin D 25-Hydroxy 34.4, Folate 14.5, Thyroid Stimulating Hormone (TSH) 0.48, Free Thyroxine 1.11 08/21/18 20:47: Glucometer 184H 08/22/18 04:48: Glucometer 133H 08/22/18 05:55: Magnesium Level 2.2, White Blood Count 6.8, Red Blood Count 3.80L, Hemoglobin 11.5L, Hematocrit 35L, Mean Corpuscular Volume 91, Mean Corpuscular Hemoglobin 30, Mean Corpuscular Hemoglobin Concent 33, Red Cell Distribution Width 15.1H, Platelet Count 242, Mean Platelet Volume 9.6, Sodium Level 138, Potassium Level 3.6, Chloride Level 107, Carbon Dioxide Level 25, Anion Gap 6, Blood Urea Nitrogen 21H, Creatinine 1.06, Estimat Glomerular Filtration Rate > 60, BUN/Creatinine Ratio 20, Glucose Level 125H, Calcium Level 8.6, Corrected Calcium 9.2, Total Bilirubin 0.4, Aspartate Amino Transf (AST/SGOT) 26, Alanine Aminotransferase (ALT/SGPT) 55, Alkaline Phosphatase 48, Total Protein 5.5L, Albumin 3.2 08/22/18 11:19: Glucometer 155H 08/22/18 16:21: Glucometer 163H 08/22/18 20:30: Glucometer 150H 08/23/18 04:55: White Blood Count 6.5, Red Blood Count 3.83L, Hemoglobin 11.7L, Hematocrit 35L, Mean Corpuscular Volume 92, Mean Corpuscular Hemoglobin 31, Mean Corpuscular Hemoglobin Concent 33, Red Cell Distribution Width 14.8H, Platelet Count 230, Mean Platelet Volume 9.2, Sodium Level 138, Potassium Level 3.7, Chloride Level 107, Carbon Dioxide Level 23, Anion Gap 8, Blood Urea Nitrogen 26H, Creatinine 1.08, Estimat Glomerular Filtration Rate > 60, BUN/Creatinine Ratio 24, Glucose Level 137H, Calcium Level 8.5, Corrected Calcium 9.1, Magnesium Level 2.1, Total Bilirubin 0.4, Aspartate Amino Transf (AST/SGOT) 21, Alanine Aminotransferase (ALT/SGPT) 48, Alkaline Phosphatase 45, Total Protein 5.7L, Albumin 3.2 08/23/18 05:32: Glucometer 128H 08/23/18 11:10: Glucometer 165H 08/23/18 15:49: Glucometer 106 08/23/18 20:50: Glucometer 285H 08/24/18 05:47: Glucometer 105 08/24/18 07:19: Sodium Level 139, Potassium Level 3.9, Chloride Level 106, Carbon Dioxide Level 24, Anion Gap 9, Blood Urea Nitrogen 21H, Creatinine 1.06, Estimat Glomerular Filtration Rate > 60, BUN/Creatinine Ratio 20, Glucose Level 130H, Calcium Level 8.7, Corrected Calcium 9.2, Magnesium Level 1.9, Total Bilirubin 0.7, Aspartate Amino Transf (AST/SGOT) 20, Alanine Aminotransferase (ALT/SGPT) 44, Alkaline Phosphatase 47, Total Protein 5.8L, Albumin 3.4 08/24/18 11:03: Glucometer 134H 08/24/18 15:39: Glucometer 191H 08/24/18 20:57: Glucometer 195H 08/25/18 05:33: Glucometer 125H 08/25/18 06:00: White Blood Count 6.4, Red Blood Count 3.90L, Hemoglobin 12.0L, Hematocrit 37L, Mean Corpuscular Volume 94, Mean Corpuscular Hemoglobin 31, Mean Corpuscular Hemoglobin Concent 33, Red Cell Distribution Width 14.9H, Platelet Count 242, Mean Platelet Volume 9.7, Sodium Level 137, Potassium Level 3.7, Chloride Level 106, Carbon Dioxide Level 25, Anion Gap 6, Blood Urea Nitrogen 23H, Creatinine 1.08, Estimat Glomerular Filtration Rate > 60, BUN/Creatinine Ratio 21, Glucose Level 126H, Calcium Level 8.8, Corrected Calcium 9.4, Magnesium Level 2.3, Total Bilirubin 0.5, Aspartate Amino Transf (AST/SGOT) 19, Alanine Aminotransferase (ALT/SGPT) 40, Alkaline Phosphatase 46, Total Protein 5.7L, Albumin 3.3 08/25/18 11:04: Glucometer 136H 08/25/18 15:58: Glucometer 157H 08/25/18 20:55: Glucometer 207H 08/26/18 05:29: Glucometer 119H 08/26/18 06:35: Sodium Level 138, Potassium Level 3.9, Chloride Level 105, Carbon Dioxide Level 25, Anion Gap 8, Blood Urea Nitrogen 28H, Creatinine 1.09, Estimat Glomerular Filtration Rate > 60, BUN/Creatinine Ratio 26, Glucose Level 116H, Calcium Level 8.9, Corrected Calcium 9.4, Magnesium Level 2.1, Total Bilirubin 0.7, Aspartate Amino Transf (AST/SGOT) 18, Alanine Aminotransferase (ALT/SGPT) 34, Alkaline Phosphatase 47, Total Protein 5.8L, Albumin 3.4 08/26/18 10:55: Glucometer 150H 08/26/18 16:15: Glucometer 231H 08/26/18 20:47: Glucometer 159H 08/27/18 06:05: White Blood Count 6.4, Red Blood Count 4.16L, Hemoglobin 12.8L, Hematocrit 39L, Mean Corpuscular Volume 94, Mean Corpuscular Hemoglobin 31, Mean Corpuscular Hemoglobin Concent 33, Red Cell Distribution Width 14.8H, Platelet Count 243, Mean Platelet Volume 9.6, Sodium Level 137, Potassium Level 4.2, Chloride Level 101, Carbon Dioxide Level 28, Anion Gap 8, Blood Urea Nitrogen 24H, Creatinine 1.03, Estimat Glomerular Filtration Rate > 60, BUN/Creatinine Ratio 23, Glucose Level 156H, Calcium Level 9.1, Corrected Calcium 9.4, Magnesium Level 2.6H, Total Bilirubin 0.9, Aspartate Amino Transf (AST/SGOT) 19, Alanine Aminotransferase (ALT/SGPT) 35, Alkaline Phosphatase 53, Total Protein 6.3L, Albumin 3.6 08/27/18 06:11: Glucometer 150H 08/27/18 11:08: Glucometer 149H 08/27/18 15:41: Glucometer 152H 08/27/18 21:14: Glucometer 215H 08/28/18 05:44: Glucometer 122H 08/28/18 10:55: Glucometer 167H 08/28/18 16:02: Glucometer 195H 08/28/18 20:27: Glucometer 191H 08/29/18 06:09: Glucometer 134H Microbiology 08/25/18 MRSA Screen - Final, Complete MRSA not isolated Pending Labs Microbiology Date/Time Source Procedure Growth Status 08/25/18 06:20 Nasal MRSA Screen - Final MRSA not isolated Complete Laboratory Tests 08/21/18 07:50: Erythrocyte Sedimentation Rate 24, Magnesium Level 1.7, C-Reactive Protein High Sensitivity 0.15, Amylase Level 65, Lipase 44, Vitamin B12 Level 1158, Vitamin D 25-Hydroxy 34.4, Folate 14.5, Thyroid Stimulating Hormone (TSH) 0.48, Free Thyroxine 1.11 08/21/18 20:47: Glucometer 184 08/22/18 04:48: Glucometer 133 08/22/18 05:55: Magnesium Level 2.2, White Blood Count 6.8, Red Blood Count 3.80, Hemoglobin 11.5, Hematocrit 35, Mean Corpuscular Volume 91, Mean Corpuscular Hemoglobin 30, Mean Corpuscular Hemoglobin Concent 33, Red Cell Distribution Width 15.1, Platelet Count 242, Mean Platelet Volume 9.6, Sodium Level 138, Potassium Level 3.6, Chloride Level 107, Carbon Dioxide Level 25, Anion Gap 6, Blood Urea Nitrogen 21, Creatinine 1.06, Estimat Glomerular Filtration Rate > 60, BUN/Creatinine Ratio 20, Glucose Level 125, Calcium Level 8.6, Corrected Calcium 9.2, Total Bilirubin 0.4, Aspartate Amino Transf (AST/SGOT) 26, Alanine Aminotransferase (ALT/SGPT) 55, Alkaline Phosphatase 48, Total Protein 5.5, Albu min 3.2 08/22/18 11:19: Glucometer 155 08/22/18 16:21: Glucometer 163 08/22/18 20:30: Glucometer 150 08/23/18 04:55: White Blood Count 6.5, Red Blood Count 3.83, Hemoglobin 11.7, Hematocrit 35, Mean Corpuscular Volume 92, Mean Corpuscular Hemoglobin 31, Mean Corpuscular Hemoglobin Concent 33, Red Cell Distribution Width 14.8, Platelet Count 230, Mean Platelet Volume 9.2, Sodium Level 138, Potassium Level 3.7, Chloride Level 107, Carbon Dioxide Level 23, Anion Gap 8, Blood Urea Nitrogen 26, Creatinine 1.08, Estimat Glomerular Filtration Rate > 60, BUN/Creatinine Ratio 24, Glucose Level 137, Calcium Level 8.5, Corrected Calcium 9.1, Magnesium Level 2.1, Total Bilirubin 0.4, Aspartate Amino Transf (AST/SGOT) 21, Alanine Aminotransferase (ALT/SGPT) 48, Alkaline Phosphatase 45, Total Protein 5.7, Albumin 3.2 08/23/18 05:32: Glucometer 128 08/23/18 11:10: Glucometer 165 08/23/18 15:49: Glucometer 106 08/23/18 20:50: Glucometer 285 08/24/18 05:47: Glucometer 105 08/24/18 07:19: Sodium Level 139, Potassium Level 3.9, Chloride Level 106, Carbon Dioxide Level 24, Anion Gap 9, Blood Urea Nitrogen 21, Creatinine 1.06, Estimat Glomerular Filtration Rate > 60, BUN/Creatinine Ratio 20, Glucose Level 130, Calcium Level 8.7, Corrected Calcium 9.2, Magnesium Level 1.9, Total Bilirubin 0.7, Aspartate Amino Transf (AST/SGOT) 20, Alanine Aminotransferase (ALT/SGPT) 44, Alkaline Phosphatase 47, Total Protein 5.8, Albumin 3.4 08/24/18 11:03: Glucometer 134 08/24/18 15:39: Glucometer 191 08/24/18 20:57: Glucometer 195 08/25/18 05:33: Glucometer 125 08/25/18 06:00: White Blood Count 6.4, Red Blood Count 3.90, Hemoglobin 12.0, Hematocrit 37, Mean Corpuscular Volume 94, Mean Corpuscular Hemoglobin 31, Mean Corpuscular Hemoglobin Concent 33, Red Cell Distribution Width 14.9, Platelet Count 242, Mean Platelet Volume 9.7, Sodium Level 137, Potassium Level 3.7, Chloride Level 106, Carbon Dioxide Level 25, Anion Gap 6, Blood Urea Nitrogen 23, Creatinine 1.08, Estimat Glomerular Filtration Rate > 60, BUN/Creatinine Ratio 21, Glucose Level 126, Calcium Level 8.8, Corrected Calcium 9.4, Magnesium Level 2.3, Total Bilirubin 0.5, Aspartate Amino Transf (AST/SGOT) 19, Alanine Aminotransferase (ALT/SGPT) 40, Alkaline Phosphatase 46, Total Protein 5.7, Albumin 3.3 08/25/18 11:04: Glucometer 136 08/25/18 15:58: Glucometer 157 08/25/18 20:55: Glucometer 207 08/26/18 05:29: Glucometer 119 08/26/18 06:35: Sodium Level 138, Potassium Level 3.9, Chloride Level 105, Carbon Dioxide Level 25, Anion Gap 8, Blood Urea Nitrogen 28, Creatinine 1.09, Estimat Glomerular Filtration Rate > 60, BUN/Creatinine Ratio 26, Glucose Level 116, Calcium Level 8.9, Corrected Calcium 9.4, Magnesium Level 2.1, Total Bilirubin 0.7, Aspartate Amino Transf (AST/SGOT) 18, Alanine Aminotransferase (ALT/SGPT) 34, Alkaline Phosphatase 47, Total Protein 5.8, Albumin 3.4 08/26/18 10:55: Glucometer 150 08/26/18 16:15: Glucometer 231 08/26/18 20:47: Glucometer 159 08/27/18 06:05: White Blood Count 6.4, Red Blood Count 4.16, Hemoglobin 12.8, Hematocrit 39, Mean Corpuscular Volume 94, Mean Corpuscular Hemoglobin 31, Mean Corpuscular Hemoglobin Concent 33, Red Cell Distribution Width 14.8, Platelet Count 243, Mean Platelet Volume 9.6, Sodium Level 137, Potassium Level 4.2, Chloride Level 101, Carbon Dioxide Level 28, Anion Gap 8, Blood Urea Nitrogen 24, Creatinine 1.03, Estimat Glomerular Filtration Rate > 60, BUN/Creatinine Ratio 23, Glucose Level 156, Calcium Level 9.1, Corrected Calcium 9.4, Magnesium Level 2.6, Total Bilirubin 0.9, Aspartate Amino Transf (AST/SGOT) 19, Alanine Aminotransferase (ALT/SGPT) 35, Alkaline Phosphatase 53, Total Protein 6.3, Albumin 3.6 08/27/18 06:11: Glucometer 150 08/27/18 11:08: Glucometer 149 08/27/18 15:41: Glucometer 152 08/27/18 21:14: Glucometer 215 08/28/18 05:44: Glucometer 122 08/28/18 10:55: Glucometer 167 08/28/18 16:02: Glucometer 195 08/28/18 20:27: Glucometer 191 08/29/18 06:09: Glucometer 134 Discharge Home Medications: Active Scripts Active [Lipase/Amylase/Protease Caps] 1 EACH Cap 1 Each PO WM 30 Days Reported Tylenol (Acetaminophen) 325 Mg Tablet 325 Mg PO Q6H PRN Probiotic (L.acidoph & Paracasei,B.lactis) 1 Each Capsule 1 Cap PO 0700,2000 Amlodipine Besylate 5 Mg Tablet 5 Mg PO 0700 Vitamin B-12 (Cyanocobalamin (Vitamin B-12)) 1,000 Mcg Tablet 1,000 Mcg PO 0700 Vitamin D3 (Cholecalciferol (Vitamin D3)) 1,000 Unit Capsule 1,000 Unit PO 0700 Gabapentin 100 Mg Capsule 100 Mg PO TID Flomax (Tamsulosin HCl) 0.4 Mg Cap 0.4 Mg PO 1999 Tylenol (Acetaminophen) 325 Mg Tablet 325 Mg PO 0700,1999 Imodium A-D (Loperamide HCl) 2 Mg Tablet PO UD PRN TAKE 2 AFTER 1ST LOOSE STOOL THEN 1 AFTER EACH LOOSE STOOL (MAX 4 IN 24 HOURS) Clopidogrel (Clopidogrel Bisulfate) 75 Mg Tablet 75 Mg PO 1999 Meclizine HCl 25 Mg Tablet 25 Mg PO TID PRN Glimepiride 4 Mg Tablet 4 Mg PO 0700 Aspirin EC (Aspirin) 81 Mg Tablet.dr 81 Mg PO 1999 Allopurinol 100 Mg Tablet 100 Mg PO 0700,1999 Finasteride 5 Mg Tablet 5 Mg PO 0700 Instructions to patient/family Please see electronic discharge instructions given to patient. Diagnosis/Problems Diagnosis/Problems (1) Debility (2) Obesity (BMI 30.0-34.9) (3) Coarse tremors (4) Pacemaker (5) Falls (6) Hypertension (7) PAF (paroxysmal atrial fibrillation) (8) Hyperlipidemia (9) Edema (10) Diarrhea (11) Urinary retention Clinical Quality Measures DVT/VTE Risk/Contraindication: Risk Factor Score Per Nursin RFS Level Per Nursing on Admit: 4+=Very High SAMANTHA ALMAZAN DO Aug 29, 2018 09:13
--- NOTE | 2018-08-29 11:16 | Therapy Team Discharge Summary ---
Therapy Discharge Summary Discharge Recommendations Date of Discharge Physical Therapy Patient came to rehab with debility. Upon evaluation patient performed bed mobility and transfers with max assist, car transfer max assist, ambulated 5' with a rolling walker with mod assist, no stairs. Patient has been performing bed mobility and transfer training, balance and endurance training, functional strengthening, stair training, gait training, and education. 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 Now, patient performs bed mobility with independence, transfers with mod I, car transfer mod I, ambulates 225' with a rolling walker with mod I (including 50' with at least 2 turns of 90 degrees and 10' over an uneven surface), and can go up and down 4 steps using 2 handrails with SBA. Patient is being discharged from this facility today and will be discharged from PT at this time. Occupational Therapy Impaired Funct Balance, Impaired Self-Care Skills PT Food Editor Goals Correction Goals PT Correction Goals Time Frame: Sep 08, 2018 Transfers (B,C,W/C) (FIM): 6 Roll Left to Right (QC): 6 Sit to Lying (QC): 6 Lying-Sitting on Side/Bed(QC): 6 Sit to Stand (QC): 6 Chair/Kmj-ld-Kvmig Xfer(QC): 6 Car Transfer (QC): 6 Does the Patient Walk: Yes Gait (FIM): 6 Gait distance (FIM): 3=150 ft Walk 10 feet (QC): 6 Walk 10ft-Uneven Surface(QC): 6 Walk 50ft with 2 Turns (QC): 6 Walk 150 ft (QC): 6 Gait Assistive Device: FWW Stairs (FIM): 5 (household) # of Steps: 4 1 Step (curb) (QC): 6 4 Steps (QC): 6 12 Steps (QC): 88 Picking up an Object (QC): 4 OT Food Editor Goals Correction Goals Eating (FIM): 6 Eating (QC): 6 Oral Hygiene (QC): 6 (not met) Grooming(FIM): 6 Bathing(FIM): 6 Bathing Location: L Arm, R Arm, L Upper Leg, R Upper Leg, L Lower Leg (includi ng foot), R Lower Leg (including foot), Chest, Abdomen, Buttocks, Perineal Area Shower/Bathe Self (QC): 6 Upper Body Dressing(FIM): 6 Upper Body Dressing (QC): 6 Lower Body Dressing(FIM): 6 Lower Body Dressing (QC): 6 On/Off Footwear (QC): 6 Toileting(FIM): 6 Toileting Hygiene (QC): 6 Transfers (B,C,W/C) (FIM): 6 Toilet/Commode Transfer(FIM): 6 Toilet/Commode Transfer (QC): 6 Shower Transfer(FIM): 6 Comprehension(FIM): 6 Expression (FIM): 6 Social Interaction(FIM): 6 Problem Solving(FIM): 6 Memory(FIM): 6 Additional Goals: 1-Demonstrate ADL Tasks, 2-Verbalize Understanding, 3- ImproveStrength/Tejal 1=Demonstrate adherence to instructed precautions during ADL tasks. 2=Patient will verbalize/demonstrate understanding of assistive devices/modifications for ADL. 3=Patient will improve strength/tolerance for activity to enable patient to perform ADL's. Speech Food Editor Goals Food Editor Goals Comprehension: 6 Expression: 6 Social Interaction: 6 Problem Solvin Memory: 6 EH BERG PT Aug 29, 2018 11:16
--- NOTE | 2018-08-29 15:09 | Therapy Team Discharge Summary ---
Therapy Discharge Summary Discharge Recommendations Date of Discharge Aug 29, 2018 at 10:15 Occupational Therapy Pt was seen for skilled OT to increase his indep with basic self are to allow him to safely return to [facility]. On admission he was dependant with eating, dressing, toileting, toilet transfers; required max assist with grooming; mod assist with bathing. By discharge he had progressed to eating with mod indep; grooming, bathing, dressing upper body with setup; toileting and toilet/shower transfers with SBA; help to put on socks and AFO. See tx plan for goals met. May benefit from home health care but pt declined. DC from OT Impaired Funct Balance, Impaired Self-Care Skills PT Ship Ceiler Goals Ship Ceiler Goals PT Fpc Goals Time Frame: Sep 08, 2018 Transfers (B,C,W/C) (FIM): 6 Roll Left to Right (QC): 6 Sit to Lying (QC): 6 Lying-Sitting on Side/Bed(QC): 6 Sit to Stand (QC): 6 Chair/Dyv-zq-Xrrid Xfer(QC): 6 Car Transfer (QC): 6 Does the Patient Walk: Yes Gait (FIM): 6 Gait distance (FIM): 3=150 ft Walk 10 feet (QC): 6 Walk 10ft-Uneven Surface(QC): 6 Walk 50ft with 2 Turns (QC): 6 Walk 150 ft (QC): 6 Gait Assistive Device: FWW Stairs (FIM): 5 (household) # of Steps: 4 1 Step (curb) (QC): 6 4 Steps (QC): 6 12 Steps (QC): 88 Picking up an Object (QC): 4 OT Ship Ceiler Goals Fpc Goals Eating (FIM): 6 (met) Eating (QC): 6 (met) Oral Hygiene (QC): 6 (not met) Grooming(FIM): 6 (not met) Bathing(FIM): 6 (not met) Bathing Location: L Arm, R Arm, L Upper Leg, R Upper Leg, L Lower Leg (including foot), R Lower Leg (including foot), Chest, Abdomen, Buttocks, Perineal Area Shower/Bathe Self (QC): 6 (not met) Upper Body Dressing(FIM): 6 (not met) Upper Body Dressing (QC): 6 (not met) Lower Body Dressing(FIM): 6 (not met) Lower Body Dressing (QC): 6 (not met) On/Off Footwear (QC): 6 (not met) Toileting(FIM): 6 (not met) Toileting Hygiene (QC): 6 (not met) Transfers (B,C,W/C) (FIM): 6 (not met) Toilet/Commode Transfer(FIM): 6 (not met) Toilet/Commode Transfer (QC): 6 (not met) Shower Transfer(FIM): 6 (not met) Comprehension(FIM): 6 Expression (FIM): 6 Social Interaction(FIM): 6 Problem Solving(FIM): 6 Memory(FIM): 6 Additional Goals: 1-Demonstrate ADL Tasks, 2-Verbalize Understanding, 3- ImproveStrength/Tejal 1=Demonstrate adherence to instructed precautions during ADL tasks. 2=Patient will verbalize/demonstrate understanding of assistive devices/modifications for ADL. 3=Patient will improve strength/tolerance for activity to enable patient to perform ADL's. Speech Fpc Goals Ship Ceiler Goals Comprehension: 6 Expression: 6 Social Interaction: 6 Problem Solvin Memory: 6 ANDREA PANDYA OT Aug 29, 2018 15:09
== END 2018-08-29 10:15 | DRG 948 ==
PROVIDERS: ADMIT Internal Medicine; ATTEND Internal Medicine
DX: R53.81 Other malaise (principal); R53.1 Weakness; R26.2 Difficulty in walking, not elsewhere classified; I12.9 Hypertensive chronic kidney disease with stage 1 through stage 4 chronic kidney disease, or unspecified chronic kidney disease; N18.9 Chronic kidney disease, unspecified; I25.10 Atherosclerotic heart disease of native coronary artery without angina pectoris; I48.0 Paroxysmal atrial fibrillation; E11.40 Type 2 diabetes mellitus with diabetic neuropathy, unspecified; E11.51 Type 2 diabetes mellitus with diabetic peripheral angiopathy without gangrene; R33.9 Retention of urine, unspecified; E66.9 Obesity, unspecified; G47.33 Obstructive sleep apnea (adult) (pediatric); E78.00 Pure hypercholesterolemia, unspecified; R25.1 Tremor, unspecified; R60.9 Edema, unspecified; K21.9 Gastro-esophageal reflux disease without esophagitis; M19.91 Primary osteoarthritis, unspecified site; M10.9 Gout, unspecified; M21.371 Foot drop, right foot; M21.372 Foot drop, left foot; Z95.5 Presence of coronary angioplasty implant and graft; Z91.81 History of falling; Z87.891 Personal history of nicotine dependence; Z87.19 Personal history of other diseases of the digestive system; Z86.39 Personal history of other endocrine, nutritional and metabolic disease; Z95.0 Presence of cardiac pacemaker; Z68.30 Body mass index [BMI] 30.0-30.9, adult
CPT/HCPCS: 36415; 80053; 82150; 82306; 82607; 82746; 82962; 83690; 83735; 84439; 84443; 85027; 85652; 86141; 87081; 93005

== ENCOUNTER → 2018-08-21 | Outpatient (CLI) | payer MEDICARE, OTHER ==
[~2018-08-21] MED LIST changes: +ACHD5005 PO; +AMLO5TAB9 PO; +CHOL10007 PO; +CYAN10006 PO; +GABA-486 PO; -GABA600T2 PO; +GBPN600T PO; +L.AC1CAP6 PO; +PRAV40TA2 PO; +TAMS0.4C98 PO
--- NOTE | 2018-08-22 20:21 | CONSULTATION REPORT ---
DATE OF SERVICE: 08/22/2018 ATTENDING PHYSICIAN: Leann Spaulding MD. HISTORY OF PRESENT ILLNESS: The patient is an 83-year-old male, who was seen in consult with Dr. Carney. This gentleman is known to us and was recently seemed to be scheduled for a colonoscopy. He reports that around 08/05 that he began having multiple daily episodes of diarrhea. He reports that he tried Lomotil as well as other mcjn-fvl-gebuajx medications without any relief of his symptoms. He reports that he did present to his primary care physician where he was eventually started on Flagyl and reports that this did start resolving after 10 days of the episodes of diarrhea. He did report occasional episodes of bright red blood in his stool and does have a history of polyps in the past where he did have an adenomatous polyp on his last colonoscopy that was in 2007. He denied any family history of any colon cancer. He does have coronary artery disease as well as a history of stroke and is currently on aspirin and Plavix for anticoagulation. He was scheduled to undergo a colonoscopy on 08/27/2018 by us. However, this gentleman was admitted yesterday to inpatient rehab due to severe weakness and debility. He does reside at an assisted living at [facility]. He has been there for the past 5 years. At this time, he will be undergoing inpatient rehabilitation and thus we will proceed with the colonoscopy on this admission. PAST MEDICAL HISTORY: Stroke at 55 years of age, type 2 diabetes, gastroesophageal reflux disease, neuropathy, BPH, gout, vitamin D deficiency, B12 deficiency, hypertension, hypercholesterolemia, and coronary artery disease. PAST SURGICAL HISTORY: Tonsil and adenoidectomy as a child, laparoscopic cholecystectomy around 1999, appendectomy at age 12, cardiac catheterization with 3 stents placed, and pacemaker defibrillator placed in 2018. ALLERGIES: No known drug allergies. MEDICATIONS: Probiotic b.i.d., Tylenol 325 mg b.i.d., gabapentin 100 mg t.i.d., Protonix 40 mg daily, finasteride 5 mg daily, allopurinol 100 mg b.i.d., glimepiride 2 mg daily, vitamin D 1000 units daily, vitamin B12 1000 mcg daily, amlodipine 5 mg daily, tamsulosin 0.4 mg daily, pravastatin 40 mg at bedtime, aspirin 81 mg daily, Plavix 75 mg daily, meclizine 25 mg p.r.n., and Imodium 2 mg p.r.n. SOCIAL HISTORY: Negative for smoke, previous for cigars, quit approximately 30 years ago. Negative for alcohol. FAMILY HISTORY: None. PHYSICAL EXAMINATION: VITAL SIGNS: Temperature is 97.8, pulse 81, respirations 16, blood pressure 121/66, and pulse ox 96% on room air. REVIEW OF SYSTEMS This is a well-nourished elderly male, in no acute distress. He is not experiencing any shortness of breath or difficulty breathing. No chest pain, palpitations or diaphoresis. No nausea, vomiting or any abdominal pain. He did report episodes of diarrhea, but no constipation. He did also report episodes of bright red blood per rectum, but no dark tarry stools. No fever or chills. No recent weight gain or loss. He did report to recent episodes of weakness. All other review of systems is negative. PHYSICAL EXAMINATION: LUNGS: Clear. Good breath sounds bilaterally. HEART: Regular, no murmurs. EXTREMITIES: No lower extremity edema. Negative Homans sign. HEENT: No scleral icterus. No cervical lymphadenopathy. ABDOMEN: Soft, nontender, nondistended. SKIN: Warm, dry and pink. NEUROLOGIC: Awake, alert, oriented x3. ASSESSMENT AND PLAN: An 83-year-old male with weakness and debility, who recently was having episodes of diarrhea as well as bright red blood in his stool and does have a history of polyps. He also has a number of multiple other medical issues including history of stroke, type 2 diabetes, gastroesophageal reflux disease, neuropathy, gout, hypercholesterolemia, hypertension, coronary artery disease, and obstructive sleep apnea. At this time, we will proceed with scheduling him for a colonoscopy during his admission. We will also have him proceed with stopping his anticoagulation before the procedure to minimize the risk of bleeding. We will also continue with medical management at this time for his other health conditions as well as an inpatient rehab therapy for his current weakness and debility. Job ID: [id number] DocumentID: [id number] Dictated Date: 08/22/2018 16:34:22 Gasoline Engine Inspector Date: 08/22/2018 20:20:49 Dictated By: BETHANY HERNANDEZ
== END | disposition home or self-care (01) ==
LOC: PREOP 05:48
PROVIDERS: ATTEND Surgery
DX: Z01.818 Encounter for other preprocedural examination (principal)

== ENCOUNTER → 2018-08-27 | Day surgery (SDC) | payer MEDICARE, OTHER ==
[~2018-08-27] MED LIST changes: +AMLO5TAB9 PO; +AMYLASE PO; +CHOL10007 PO; +CYAN10006 PO; +GABA-486 PO; +L.AC1CAP6 PO; +LIDOCAINE JELLY 2% 6 ML SYRINGE MM PRN; +LIDOCAINE JELLY 2% 6 ML SYRINGE ONE; +LIPASE PO; +MIDAZOLAM 2 MG/2 ML (VERSED) VIAL IVP ONE; +MIDAZOLAM 2 MG/2 ML (VERSED) VIAL ONE; +NS IV 500 ML 500 ML IV PRN; +NS IV 500 ML 500 ML ONE; +PRAV40TA2 PO; +PROPOFOL INJECTION 50 ML IV ONE; +PROTEASE PO; +TAMS0.4C98 PO; +fentaNYL INJECTION 100 MCG/2 ML AMP IVP ONE; +fentaNYL INJECTION 100 MCG/2 ML AMP ONE
--- OUTSIDE RECORDS SUMMARY | 2018-08-27 12:53 | XMS REPORT | Continuity of Care Document ---
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 STENOSIS OF [place]IL[place]AL [place] 07/04/2017 DELMY ESTRADA LIAISON ENGINEER Ot 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 [place] ARTERIES OF EXTRM W INTRMT 07/04/2017 JOEL LEONARD MD Ot E11.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 MELLITUS WITH FOOT ULCER 07/04/2017 JOEL LEONARD MD Ot 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 UL 07/04/2017 JOEL LEONARD MD Ot 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 07/04/2017 JOEL LEONARD MD Ot E11.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 MELLITUS WITH FOOT ULCER 07/04/2017 JOEL LEONARD MD Ot 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 UL 07/04/2017 JOEL LEONARD MD Ot 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 07/04/2017 JOEL LEONARD MD Ot E11.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 MELLITUS WITH FOOT ULCER 07/04/2017 JOEL LEONARD MD Ot 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 UL 07/04/2017 JOEL LEONARD MD Ot 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 07/04/2017 TERESITA MART APRN Ot E11.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 MELLITUS WITH FOOT ULCER 07/04/2017 TERESITA MART APRN Ot 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 UL 07/04/2017 TERESITA MART APRN Ot 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 07/04/2017 JOEL LEONARD MD Ot E11.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 MELLITUS WITH FOOT ULCER 07/04/2017 JOEL LEONARD MD Ot 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 UL 07/04/2017 JOEL LEONARD MD Ot 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 07/04/2017 GOLDY HINOJOSA DO Ot J98.11 ATELECTASIS 07/04/2017 GOLDY HINOJOSA DO Ot R91.8 OTHER NONSPECIFIC ABNORMAL FINDING OF [place] 07/04/2017 ASHISH MENDEZ, GOLDY Nowak Ot I25.10 ATHSCL HEART DISEASE OF [place] CORONARY 07/04/2017 ASHISH MENDEZ, GOLDY Nowak Ot [...] 07/04/2017 JOEL LEONARD MD Ot 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 UL 07/04/2017 JOEL LEONARD MD Ot 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 07/04/2017 ASHISH MENDEZ GOLDY Nwoak Ot E04.2 NONTOXIC MULTINODULAR GOITER 07/05/2017 JOEL LEONARD MD Ot E11.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 MELLITUS WITH FOOT ULCER 07/05/2017 JOEL LEONARD MD Ot 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 UL 07/05/2017 JOEL LEONARD MD Ot 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 07/09/2017 DELMY ESTRADA LIAISON ENGINEER Ot E78.4 OTHER HYPERLIPIDEMIA 07/09/2017 DELMY ESTRADA LIAISON ENGINEER Ot I10 ESSENTIAL (PRIMARY) HYPERTENSION 07/09/2017 DELMY ESTRADA LIAISON ENGINEER Ot I25.10 ATHSCL HEART DISEASE OF [place] CORONARY 07/09/2017 DELMY ESTRADA LIAISON ENGINEER Ot I65.23 OCCLUSION AND STENOSIS OF [place]AL [place] 07/09/2017 DELMY ESTRADA L LIAISON ENGINEER Ot 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 [place] ARTERIES OF EXTRM W INTRMT 07/09/2017 JOEL LEONARD MD, Ot E11.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 MELLITUS WITH FOOT ULCER 07/09/2017 JOEL LEONARD MD Ot 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 UL 07/09/2017 JOEL LEONARD MD Ot 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 07/09/2017 JOEL LEONARD MD Ot E11.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 MELLITUS WITH FOOT ULCER 07/09/2017 JOEL LEONARD MD Ot 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 UL 07/09/2017 JOEL LEONARD MD Ot 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 07/09/2017 JOEL LEONARD MD Ot E11.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 MELLITUS WITH FOOT ULCER 07/09/2017 JOEL LEONARD MD Ot 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 UL 07/09/2017 JOEL LEONARD MD Ot 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 07/09/2017 TERESITA MART APRN Ot E11.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 MELLITUS WITH FOOT ULCER 07/09/2017 TERESITA MART APRN Ot 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 07/09/2017 TERESITA MART APRN Ot 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 07/09/2017 JOEL LEONARD MD Ot E11.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 MELLITUS WITH FOOT ULCER 07/09/2017 JOEL LEONARD MD Ot 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 UL 07/09/2017 JOEL LEONARD MD Ot 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 07/09/2017 GOLDY HINOJOSA DO Ot J98.11 ATELECTASIS 07/09/2017 GOLDY HINOJOSA DO Ot R91.8 OTHER NONSPECIFIC ABNORMAL FINDING OF [place] 07/09/2017 GOLDY HINOJOSA DO Ot I25.10 ATHSCL HEART DISEASE OF [place] CORONARY 07/09/2017 GOLDY HINOJOSA DO Ot I51.7 [...] 07/09/2017 JOEL LEONARD MD Ot 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 UL 07/09/2017 JOEL LEONARD MD Ot 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 07/09/2017 GOLDY HINOJOSA DO Ot E04.2 NONTOXIC MULTINODULAR GOITER 07/09/2017 JOEL LEONARD MD Ot E11.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 MELLITUS WITH FOOT ULCER 07/09/2017 JOEL LEONARD MD Ot 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 UL 07/09/2017 JOEL LEONARD MD Ot 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 07/09/2017 DELMY ESTRADA LIAISON ENGINEER Ot E78.4 OTHER HYPERLIPIDEMIA 07/09/2017 DELMY ESTRADA L LIAISON ENGINEER Ot I10 ESSENTIAL (PRIMARY) HYPERTENSION 07/09/2017 BAIPHILIP MEJIAHER L LIAISON ENGINEER Ot I25.10 ATHSCL HEART DISEASE OF [place] CORONARY 07/09/2017 BAIDELMY MEJIA LIAISON ENGINEER Ot I65.23 OCCLUSION AND STENOSIS OF [place]AL [place] 07/09/2017 DELMY ESTRADA LIAISON ENGINEER Ot 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 [place] ARTERIES OF EXTRM W INTRMT 07/09/2017 JOEL LEONARD MD Ot E11.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 MELLITUS WITH FOOT ULCER 07/09/2017 JOEL LEONARD MD Ot 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 UL 07/09/2017 JOEL LEONARD MD Ot 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 07/09/2017 JOEL LEONARD MD Ot E11.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 MELLITUS WITH FOOT ULCER 07/09/2017 JOEL LEONARD MD Ot 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 UL 07/09/2017 JOEL LEONARD MD Ot 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 07/09/2017 JOEL LEONARD MD Ot E11.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 MELLITUS WITH FOOT ULCER 07/09/2017 JOEL LEONARD MD Ot 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 UL 07/09/2017 JOEL LEONARD MD Ot 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 07/09/2017 TERESITA MART APRN Ot E11.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 MELLITUS WITH FOOT ULCER 07/09/2017 TERESITA MART APRN Ot 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 UL 07/09/2017 TERESITA MART APRN Ot 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 07/09/2017 JOEL LEONARD MD Ot E11.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 MELLITUS WITH FOOT ULCER 07/09/2017 JOEL LEONARD MD Ot 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 UL 07/09/2017 JOEL LEONARD MD Ot 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 07/09/2017 ASHISH GOLDY MENDEZ Ot J98.11 ATELECTASIS 07/09/2017 PASCUALЕЛЕНА GOLDY MENDEZ Ot R91.8 OTHER NONSPECIFIC ABNORMAL FINDING OF [place] 07/09/2017 LISANDRACONCHA MENDEZGOLDY Ot I25.10 ATHSCL HEART DISEASE OF [place] CORONARY 07/09/2017 PASCUALЕЛЕНА GOLDY MENDEZ Ot I51.7 [...] 07/09/2017 JOEL LEONARD MD Ot 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 UL 07/09/2017 JOEL LEONARD MD Ot 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 07/09/2017 GOLDY HINOJOSA DO Ot E04.2 NONTOXIC MULTINODULAR GOITER 07/09/2017 JOEL LEONARD MD Ot E11.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 MELLITUS WITH FOOT ULCER 07/09/2017 JOEL LEONARD MD Ot 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 UL 07/09/2017 [...] Nowak Ot I25.10 ATHSCL HEART DISEASE OF [place] CORONARY 07/10/2017 GELLENDER DO, GOLDY Nowak Ot [...] Nowak Ot I25.10 ATHSCL HEART DISEASE OF [place] CORONARY 07/10/2017 GELLENDER DO, GOLDY Nowak Ot [...] 07/17/2017 JOEL LEONARD MD Ot 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 UL 07/17/2017 JOEL LEONARD MD Ot 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 07/18/2017 ASHISH MENDEZGOLDY Ot I25.10 ATHSCL HEART DISEASE OF [place] CORONARY 07/18/2017 ASIHSH MENDEZGOLDY Ot I51.7 CARDIOMEGALY 07/18/2017 ASHISH MENDEZGOLDY [...] Nowak Ot I25.10 ATHSCL HEART DISEASE OF [place] CORONARY 07/19/2017 GELLENDER DO, GLODY Nowak Ot 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, SECOND DEGREE [...] MELLITUS WITH DIABETIC N 07/19/2017 GELLENDER DO, GLODY Nowak Ot E11.43 TYPE 2 DIABETES W [...] Nowak Ot I25.10 ATHSCL HEART DISEASE OF [place] CORONARY 07/19/2017 GELLENDER DO, GOLDY Nowak Ot [...] 07/24/2017 JOEL LEONARD MD Ot 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 UL 07/24/2017 JOEL LEONARD MD Ot 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 07/30/2017 JOEL LEONARD MD Ot E11.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 MELLITUS WITH FOOT ULCER 07/30/2017 JOEL LEONARD MD Ot 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 UL 07/30/2017 [...] 08/22/2017 JOEL LEONARD MD Ot 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 UL 08/22/2017 JOEL LEONARD MD Ot 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 08/22/2017 JOEL LEONARD MD Ot E11.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 MELLITUS WITH FOOT ULCER 08/22/2017 JOEL LEONARD MD Ot 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 UL 08/22/2017 JOEL LEONARD MD Ot 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 08/26/2017 JOEL LEONARD MD Ot E11.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 MELLITUS WITH FOOT ULCER 08/26/2017 JOEL LEONARD MD Ot 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 UL 08/26/2017 JOEL LEONARD MD Ot 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 09/19/2017 OWEN TELLEZ, SHARON [place] Ot E78.00 PURE HYPERCHOLESTEROLEMIA, UNSPECIFIED 09/19/2017 OWEN TELLEZ, SHARON J Ot G47.30 SLEEP APNEA, UNSPECIFIED 09/19/2017 OWEN TELLEZ, SHARON J Ot I10 ESSENTIAL (PRIMARY) HYPERTENSION 09/19/2017 SHARON WEAVER MD Ot I25.10 ATHSCL HEART DISEASE OF [place] CORONARY 09/19/2017 SHARON WEAVER MD Ot I44.0 [...] AW 09/19/2017 SHARON WEAVER MD Ot Z79.82 DREDGE MASTER (CURRENT) USE OF ASPIRIN 09/19/2017 SHARON WEAVER MD Ot Z87.442 PERSONAL HISTORY OF URINARY CALCULI 09/19/2017 SHARON WEAVER MD Ot Z88.8 ALLERGY STATUS TO [facility] DRUG/MEDS/BIOL SUB 09/19/2017 SHARON WEAVER MD Ot Z90.49 ACQUIRED ABSENCE OF OTHER SPECIFIED PART 09/19/2017 SHARON WEAVER MD Ot Z90.89 ACQUIRED ABSENCE OF OTHER ORGANS 09/19/2017 SHARON WEAVER MD Ot Z96.7 PRESENCE OF OTHER BONE AND TENDON IMPLAN 10/22/2017 JOEL LEONARD MD Ot E11.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 MELLITUS WITH FOOT ULCER 10/22/2017 JOEL LEONARD MD Ot 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 UL 10/22/2017 JOEL LEONARD MD Ot L97.512 NON-PRS CHRONIC ULCER OT PRT RIGHT FOOT 10/22/2017 JOEL LEONADR MD, Ot E11.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 MELLITUS WITH FOOT ULCER 10/22/2017 JOEL LEONARD MD Ot 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 UL 10/22/2017 JOEL LEONARD MD Ot 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 11/13/2017 JOEL LEONARD MD Ot E11.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 MELLITUS WITH FOOT ULCER 11/13/2017 JOEL LEONARD MD Ot 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 UL 11/13/2017 JOEL LEONARD MD Ot 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 08/21/2018 SHARON WEAVER MD Ot E11.40 TYPE 2 DIABETES MELLITUS WITH DIABETIC N 08/21/2018 SHARON WEAVER MD Ot E78.00 PURE HYPERCHOLESTEROLEMIA, UNSPECIFIED 08/21/2018 SHARON WEAVER MD Ot E86.0 DEHYDRATION 08/21/2018 SHARON WEAVER MD Ot G47.30 SLEEP APNEA, UNSPECIFIED 08/21/2018 SHARON WEAVER MD Ot I10 ESSENTIAL (PRIMARY) HYPERTENSION 08/21/2018 SHARON WEAVER MD Ot I25.10 ATHSCL HEART DISEASE OF [place] CORONARY 08/21/2018 SHARON WEAVER MD Ot K21.9 GASTRO-ESOPHAGEAL REFLUX DISEASE WITHOUT 08/21/2018 SHARON WEAVER MD Ot M10.9 GOUT, UNSPECIFIED 08/21/2018 SHARON WEAVER MD Ot R19.7 DIARRHEA, UNSPECIFIED 08/21/2018 SHARON WEAVER MD Ot R53.83 OTHER FATIGUE 08/21/2018 SHARON WEAVER MD Ot R54 AGE-RELATED PHYSICAL DEBILITY 08/21/2018 SHARON WEAVER MD Ot Z79.02 NURSING HOME (CURRENT) USE OF ANTITHROMBOTI 08/21/2018 SHARON WEAVER MD Ot Z79.4 DREDGE MASTER (CURRENT) USE OF INSULIN 08/21/2018 SHARON WEAVER MD Ot Z79.82 NURSING HOME (CURRENT) USE OF ASPIRIN 08/21/2018 SHARON WEAVER MD Ot Z87.442 PERSONAL HISTORY OF URINARY CALCULI 08/21/2018 SHARON WEAVER MD Ot Z87.891 PERSONAL HISTORY OF NICOTINE DEPENDENCE 08/21/2018 SHARON WEAVER MD Ot Z88.8 ALLERGY STATUS TO [facility] DRUG/MEDS/BIOL SUB 08/21/2018 SHARON WEAVER MD Ot Z90.49 ACQUIRED ABSENCE OF OTHER SPECIFIED PART 08/21/2018 SHARON WEAVER MD Ot Z90.89 ACQUIRED ABSENCE OF OTHER ORGANS 08/21/2018 SHARON WEAVER MD Ot Z95.5 PRESENCE OF CORONARY ANGIOPLASTY IMPLANT 08/22/2018 WALKER LOMELI MD Ot Z01.818 ENCOUNTER FOR OTHER PREPROCEDURAL EXAMIN 08/25/2018 SHARON WEAVER MD Ot E11.40 TYPE 2 DIABETES MELLITUS WITH DIABETIC N 08/25/2018 SHARON WEAVER MD Ot E78.00 PURE HYPERCHOLESTEROLEMIA, UNSPECIFIED 08/25/2018 SHARON WEAVER MD Ot E86.0 DEHYDRATION 08/25/2018 SHARON WEAVER MD Ot G47.30 SLEEP APNEA, UNSPECIFIED 08/25/2018 SHARON WEAVER MD Ot I10 ESSENTIAL (PRIMARY) HYPERTENSION 08/25/2018 SHARON WEAVER MD Ot I25.10 ATHSCL HEART DISEASE OF [place] CORONARY 08/25/2018 SHARON WEAVER MD Ot K21.9 GASTRO-ESOPHAGEAL REFLUX DISEASE WITHOUT 08/25/2018 SHARON WEAVER MD Ot M10.9 GOUT, UNSPECIFIED 08/25/2018 SHARON WEAVER MD Ot R19.7 DIARRHEA, UNSPECIFIED 08/25/2018 SHARON WEAVER MD Ot R53.83 OTHER FATIGUE 08/25/2018 SHARON WEAVER MD Ot R54 AGE-RELATED PHYSICAL DEBILITY 08/25/2018 SHARON WEAVER MD Ot Z79.02 NURSING HOME (CURRENT) USE OF ANTITHROMBOTI 08/25/2018 SHARON WEAVER MD Ot Z79.4 NURSING HOME (CURRENT) USE OF INSULIN 08/25/2018 SHARON WEAVER MD Ot Z79.82 DREDGE MASTER (CURRENT) USE OF ASPIRIN 08/25/2018 SHARON WEAVER MD Ot Z87.442 PERSONAL HISTORY OF URINARY CALCULI 08/25/2018 SHARON WEAVER MD Ot Z87.891 PERSONAL HISTORY OF NICOTINE DEPENDENCE 08/25/2018 SHARON WEAVER MD Ot Z88.8 ALLERGY STATUS TO OT DRUG/MEDS/BIOL SUB 08/25/2018 SHARON WEAVER MD Ot Z90.49 ACQUIRED ABSENCE OF OTHER SPECIFIED PART 08/25/2018 SHARON WEAVER MD Ot Z90.89 ACQUIRED ABSENCE OF OTHER ORGANS 08/25/2018 SHARON WEAVER MD Ot Z95.5 PRESENCE OF CORONARY ANGIOPLASTY IMPLANT 08/25/2018 DELMY ESTRADA L LIAISON ENGINEER Ot 272.4 HYPERLIPIDEMIA NEC/NOS 08/25/2018 SEAN DELMY L LIAISON ENGINEER Ot 401.9 HYPERTENSION NOS 08/25/2018 SEAN DELMY L LIAISON ENGINEER Ot 414.00 CORON ATHEROSCLER NOS TYPE VESSEL, NATIV 08/25/2018 DELMY ESTRADA L LIAISON ENGINEER Ot 443.9 PERIPH VASCULAR DIS NOS 08/25/2018 DELMY ESTRADA L LIAISON ENGINEER Ot 780.57 UNSPECIFIED SLEEP APNEA 08/25/2018 SEAN DELMY L LIAISON ENGINEER Ot 786.50 CHEST PAIN NOS 08/25/2018 ASHISH MENDEZ GOLDY Eliu Ot 959.7 LOWER LEG INJURY NOS 08/25/2018 ASHISH MENDEZ, GOLDY Eliu Ot E000.8 OTHER EXTERNAL CAUSE STATUS 08/25/2018 ASHISH MENDEZ, GOLDY Eliu Ot E849.0 ACCIDENT IN HOME 08/25/2018 ASHISH MENDEZ GOLDY Eliu Ot E917.4 STAT OB W/O SUB FALL NEC 08/25/2018 ASHISH MENDEZ GOLDY Nowak Ot 959.7 LOWER LEG INJURY NOS 08/25/2018 ASHISH MENDEZ, GOLDY Eliu Ot E000.8 OTHER EXTERNAL CAUSE STATUS 08/25/2018 ASHISH MENDEZ GOLDY [place] Ot E928.9 ACCIDENT NOS 08/25/2018 [facility], GOLDY [place] Ot 440.20 ATHEROSCLEROSIS [place] ARTERIES EXTREMIT 08/25/2018 ASHISH MENDEZGOLDY Ot 785.9 CARDIOVAS SYS SYMP NEC 08/25/2018 DELMY ESTRADA L LIAISON ENGINEER Ot E78.4 OTHER HYPERLIPIDEMIA 08/25/2018 SENA DELMY L LIAISON ENGINEER Ot I10 ESSENTIAL (PRIMARY) HYPERTENSION 08/25/2018 SEAN DELMY L LIAISON ENGINEER Ot I25.10 ATHSCL HEART DISEASE OF [place] CORONARY 08/25/2018 PHILIP ESTRADAHER L LIAISON ENGINEER Ot I65.23 OCCLUSION AND STENOSIS OF [place]IL[place]AL [place] 08/25/2018 BAIMA, DELMY L LIAISON ENGINEER Ot E78.4 OTHER HYPERLIPIDEMIA 08/25/2018 DELMY ESTRADA LIAISON ENGINEER Ot I10 ESSENTIAL (PRIMARY) HYPERTENSION 08/25/2018 DELMY ESTRADA LIAISON ENGINEER Ot I25.10 ATHSCL HEART DISEASE OF [place] CORONARY 08/25/2018 DELMY ESTRADA LIAISON ENGINEER Ot I65.23 OCCLUSION AND STENOSIS OF [place]AL [place] 08/25/2018 DAVIDDELMY MEJIA LIAISON ENGINEER Ot 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 [place] ARTERIES OF EXTRM W INTRMT 08/25/2018 JOEL LEONARD MD Ot E11.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 MELLITUS WITH FOOT ULCER 08/25/2018 JOEL LEONARD MD Ot 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 UL 08/25/2018 JOEL LEONARD MD Ot 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 08/25/2018 JOEL LEONARD MD, Ot E11.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 MELLITUS WITH FOOT ULCER 08/25/2018 JOEL LEONARD MD Ot 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 UL 08/25/2018 JOEL LEONARD MD Ot 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 08/25/2018 JOEL LEONARD MD Ot E11.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 MELLITUS WITH FOOT ULCER 08/25/2018 JOEL LEONARD MD Ot 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 UL 08/25/2018 JOEL LEONARD MD Ot 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 08/25/2018 TERESITA MART APRN Ot E11.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 MELLITUS WITH FOOT ULCER 08/25/2018 TERESITA MART APRN Ot 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 UL 08/25/2018 TERESITA MART APRN Ot 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 08/25/2018 JOEL LEONARD MD Ot E11.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 MELLITUS WITH FOOT ULCER 08/25/2018 JOEL LEONARD MD Ot 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 UL 08/25/2018 JOEL LEONARD MD Ot 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 08/25/2018 GOLDY HINOJOSA DO Ot J98.11 ATELECTASIS 08/25/2018 ASHISH MENDEZ, GOLDY [place]ak Ot R91.8 OTHER NONSPECIFIC ABNORMAL FINDING OF [place] 08/25/2018 GOLDY HINOJOSA DO Ot I25.10 ATHSCL HEART DISEASE OF [place] CORONARY 08/25/2018 ASHISH MENDEZ, GOLDY Nowak Ot I51.7 CARDIOMEGALY 08/25/2018 GOLDY HINOJOSA DO Ot 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, 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 08/25/2018 GOLDY HINOJOSA DO Ot K76.89 OTHER SPECIFIED DISEASES OF LIVER 08/25/2018 GOLDY HINOJOSA DO Ot N28.1 CYST OF KIDNEY, ACQUIRED 08/25/2018 GOLDY HINOJOSA DO Ot R91.8 OTHER NONSPECIFIC ABNORMAL FINDING OF [place] 08/25/2018 JOEL LEONARD MD Ot E11.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 MELLITUS WITH FOOT ULCER 08/25/2018 JOEL LEONARD MD Ot 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 UL 08/25/2018 JOEL LEONARD MD Ot 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 08/25/2018 ASHISH MENDEZ GOLDY Nowak Ot E04.2 NONTOXIC MULTINODULAR GOITER 08/25/2018 JOEL LEONARD MD Ot E11.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 MELLITUS WITH FOOT ULCER 08/25/2018 OJEL LEONARD MD Ot 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 UL 08/25/2018 JOEL LEONARD MD Ot 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 08/25/2018 ARMANI TELLEZ, WALKER Ot Z01.818 ENCOUNTER FOR OTHER PREPROCEDURAL EXAMIN Procedures Code Description Performed By Performed On .05/21/2012 86.05/23/2012 Results Test Result Range Comprehensive metabolic [...] 0.1 10*3/uL 0.0-0.1 Comprehensive metabolic panel - 08/21/18 07:50 Serum or plasma sodium measurement (moles/volume) 135 mmol/L 135-145 Serum or plasma potassium measurement (moles/volume) 3.7 mmol/L 3.6-5.0 Serum or plasma chloride measurement (moles/volume) 103 mmol/L 98-107 Carbon dioxide 24 mmol/L 21-32 Serum or plasma anion gap determination (moles/volume) 8 mmol/L 5-14 Serum or plasma urea nitrogen measurement (mass/volume) 22 mg/dL 7-18 Serum or plasma creatinine measurement (mass/volume) 1.18 mg/dL 0.60-1.30 Serum or plasma urea nitrogen/creatinine mass ratio 19 NRG Serum or plasma creatinine measurement with calculation of estimated glomerular filtration rate 59 NRG Serum or plasma glucose measurement (mass/volume) 205 mg/dL 70-105 Serum or plasma calcium measurement (mass/volume) 8.8 mg/dL 8.5-10.1 Serum or plasma total bilirubin measurement (mass/volume) 0.5 mg/dL 0.1-1.0 Serum or plasma alkaline phosphatase measurement (enzymatic activity/volume) 53 U/L 40-136 Serum or plasma aspartate aminotransferase measurement (enzymatic activity/volume) 36 U/L 5-34 Serum or plasma alanine aminotransferase measurement (enzymatic activity/volume) 69 U/L 0-55 Serum or plasma protein measurement (mass/volume) 6.0 g/dL 6.4-8.2 Serum or plasma albumin measurement (mass/volume) 3.5 g/dL 3.2-4.5 CALCIUM CORRECTED 9.2 mg/dL 8.5-10.1 Magnesium - 08/21/18 07:50 Magnesium 1.7 mg/dL 1.8-2.4 Serum or plasma amylase measurement (enzymatic activity/volume) - 08/21/18 07:50 Serum or plasma amylase measurement (enzymatic activity/volume) 65 U/L 25-125 Lipase - 08/21/18 07:50 Lipase 44 U/L 8-78 THYROID STIMULATING HORMONE - 08/21/18 07:50 THYROID STIMULATING HORMONE 0.48 u[iU]/mL 0.35-4.94 Erythrocyte sedimentation rate by westergren method - 08/21/18 07:50 Erythrocyte sedimentation rate by westergren method 24 mm 0-30 Serum or plasma thyroxine (T4) free measurement (mass/volume) - 08/21/18 07:50 Serum or plasma thyroxine (T4) free measurement (mass/volume) 1.11 ng/dL 0.70-1.48 Serum or plasma C reactive protein measurement (mass/volume) - 08/21/18 07:50 Serum or plasma C reactive protein measurement (mass/volume) 0.15 mg/dL 0.00-0.50 Serum or plasma folate measurement (mass/volume) - 08/21/18 07:50 Serum or plasma folate measurement (mass/volume) 14.5 % >=4.0 Cyanocobalamin measurement - 08/21/18 07:50 Vitamin B12 1158 pg/mL 190-1100 VITAMIN D 25-HYDROXY - 08/21/18 07:50 VITAMIN D 25-HYDROXY (TOTAL) 34.4 % 30.0-100.0 Complete urinalysis with reflex to culture - 08/21/18 08:25 Urine color determination YELLOW NRG Urine clarity determination CLEAR NRG Urine pH measurement by test strip 6.5 5-9 Specific gravity of urine by test strip 1.010 1.016-1.022 Urine protein assay by test strip, semi-quantitative NEGATIVE NEGATIVE Urine glucose detection by automated test strip NEGATIVE NEGATIVE Erythrocytes detection in urine sediment by light microscopy 5+ NEGATIVE Urine ketones detection by automated test strip NEGATIVE NEGATIVE Urine nitrite detection by test strip NEGATIVE NEGATIVE Urine total bilirubin detection by test strip NEGATIVE NEGATIVE Urine urobilinogen measurement by automated test strip (mass/volume) NORMAL NORMAL Urine leukocyte esterase detection by dipstick NEGATIVE NEGATIVE Automated urine sediment erythrocyte count by microscopy (number/high power field) [HPF] NRG Automated urine sediment leukocyte count by [...] blood glucose measurement by glucometer (mass/volume) - 08/21/18 20:47 Capillary blood glucose measurement by glucometer (mass/volume) 184 mg/dL 70-110 Capillary blood glucose measurement by glucometer (mass/volume) - 08/22/18 04:48 Capillary blood glucose measurement by glucometer (mass/volume) 133 mg/dL 70-110 Automated blood complete blood count (hemogram) panel - 08/22/18 05:55 Blood leukocytes automated count (number/volume) 6.8 10*3/uL 4.3-11.0 Blood erythrocytes automated count (number/volume) 3.80 10*6/uL 4.35-5.85 Venous blood hemoglobin measurement (mass/volume) 11.5 g/dL 13.3-17.7 Blood hematocrit (volume fraction) 35 % 40-54 Automated erythrocyte mean corpuscular volume 91 [foz_us] 80-99 Automated erythrocyte mean corpuscular hemoglobin (mass per erythrocyte) 30 pg 25-34 Automated erythrocyte mean corpuscular hemoglobin concentration measurement (mass/volume) 33 g/dL 32-36 Automated erythrocyte distribution width ratio 15.1 % 10.0- 14.5 Automated blood platelet count (count/volume) 242 10*3/uL 130-400 Automated blood platelet mean volume measurement 9.6 [foz_us] 7.4-10.4 Comprehensive metabolic panel - 08/22/18 05:55 Serum or plasma sodium measurement (moles/volume) 138 mmol/L 135-145 Serum or plasma potassium measurement (moles/volume) 3.6 mmol/L 3.6-5.0 Serum or plasma chloride measurement (moles/volume) 107 mmol/L 98-107 Carbon dioxide 25 mmol/L 21-32 Serum or plasma anion gap determination (moles/volume) 6 mmol/L 5-14 Serum or plasma urea nitrogen measurement (mass/volume) 21 mg/dL 7-18 Serum or plasma creatinine measurement (mass/volume) 1.06 mg/dL 0.60-1.30 Serum or plasma urea nitrogen/creatinine mass ratio 20 NRG Serum or plasma creatinine measurement with calculation of estimated glomerular filtration rate > NRG Serum or plasma glucose measurement (mass/volume) 125 mg/dL 70-105 Serum or plasma calcium measurement (mass/volume) 8.6 mg/dL 8.5-10.1 Serum or plasma total bilirubin measurement (mass/volume) 0.4 mg/dL 0.1-1.0 Serum or plasma alkaline phosphatase measurement (enzymatic activity/volume) 48 U/L 40-136 Serum or plasma aspartate aminotransferase measurement (enzymatic activity/volume) 26 U/L 5-34 Serum or plasma alanine aminotransferase measurement (enzymatic activity/volume) 55 U/L 0-55 Serum or plasma protein measurement (mass/volume) 5.5 g/dL 6.4-8.2 Serum or plasma albumin measurement (mass/volume) 3.2 g/dL 3.2-4.5 CALCIUM CORRECTED 9.2 mg/dL 8.5-10.1 Magnesium - 08/22/18 05:55 Magnesium 2.2 mg/dL 1.8-2.4 Capillary blood glucose measurement by glucometer (mass/volume) - 08/22/18 16:21 Capillary blood glucose measurement by glucometer (mass/volume) 163 mg/dL 70-110 Capillary blood glucose measurement by glucometer (mass/volume) - 08/22/18 20:30 Capillary blood glucose measurement by glucometer (mass/volume) 150 mg/dL 70-110 Automated blood complete blood count (hemogram) panel - 08/23/18 04:55 Blood leukocytes automated count (number/volume) 6.5 10*3/uL 4.3-11.0 Blood erythrocytes automated count (number/volume) 3.83 10*6/uL 4.35-5.85 Venous blood hemoglobin measurement (mass/volume) 11.7 g/dL 13.3-17.7 Blood hematocrit (volume fraction) 35 % 40-54 Automated erythrocyte mean corpuscular volume 92 [foz_us] 80-99 Automated erythrocyte mean corpuscular hemoglobin (mass per erythrocyte) 31 pg 25-34 Automated erythrocyte mean corpuscular hemoglobin concentration measurement (mass/volume) 33 g/dL 32-36 Automated erythrocyte distribution width ratio 14.8 % 10.0- 14.5 Automated blood platelet count (count/volume) 230 10*3/uL 130-400 Automated blood platelet mean volume measurement 9.2 [foz_us] 7.4-10.4 Comprehensive metabolic panel - 08/23/18 04:55 Serum or plasma sodium measurement (moles/volume) 138 mmol/L 135-145 Serum or plasma potassium measurement (moles/volume) 3.7 mmol/L 3.6-5.0 Serum or plasma chloride measurement (moles/volume) 107 mmol/L 98-107 Carbon dioxide 23 mmol/L 21-32 Serum or plasma anion gap determination (moles/volume) 8 mmol/L 5-14 Serum or plasma urea nitrogen measurement (mass/volume) 26 mg/dL 7-18 Serum or plasma creatinine measurement (mass/volume) 1.08 mg/dL 0.60-1.30 Serum or plasma urea nitrogen/creatinine mass ratio 24 NRG Serum or plasma creatinine measurement with calculation of estimated glomerular filtration rate > NRG Serum or plasma glucose measurement (mass/volume) 137 mg/dL 70-105 Serum or plasma calcium measurement (mass/volume) 8.5 mg/dL 8.5-10.1 Serum or plasma total bilirubin measurement (mass/volume) 0.4 mg/dL 0.1-1.0 Serum or plasma alkaline phosphatase measurement (enzymatic activity/volume) 45 U/L 40-136 Serum or plasma aspartate aminotransferase measurement (enzymatic activity/volume) 21 U/L 5-34 Serum or plasma alanine aminotransferase measurement (enzymatic activity/volume) 48 U/L 0-55 Serum or plasma protein measurement (mass/volume) 5.7 g/dL 6.4-8.2 Serum or plasma albumin measurement (mass/volume) 3.2 g/dL 3.2-4.5 CALCIUM CORRECTED 9.1 mg/dL 8.5-10.1 Magnesium - 08/23/18 04:55 Magnesium 2.1 mg/dL 1.8-2.4 Capillary blood glucose measurement by glucometer (mass/volume) - 08/23/18 05:32 Capillary blood glucose measurement by glucometer (mass/volume) 128 mg/dL 70-110 Capillary blood glucose measurement by glucometer (mass/volume) - 08/23/18 11:10 Capillary blood glucose measurement by glucometer (mass/volume) 165 mg/dL 70-110 Capillary blood glucose measurement by glucometer (mass/volume) - 08/23/18 15:49 Capillary blood glucose measurement by glucometer (mass/volume) 106 mg/dL 70-110 Capillary blood glucose measurement by glucometer (mass/volume) - 08/23/18 20:50 Capillary blood glucose measurement by glucometer (mass/volume) 285 mg/dL 70-110 Capillary blood glucose measurement by glucometer (mass/volume) - 08/24/18 05:47 Capillary blood glucose measurement by glucometer (mass/volume) 105 mg/dL 70-110 Comprehensive metabolic panel - 08/24/18 07:19 Serum or plasma sodium measurement (moles/volume) 139 mmol/L 135-145 Serum or plasma potassium measurement (moles/volume) 3.9 mmol/L 3.6-5.0 Serum or plasma chloride measurement (moles/volume) 106 mmol/L 98-107 Carbon dioxide 24 mmol/L 21-32 Serum or plasma anion gap determination (moles/volume) 9 mmol/L 5-14 Serum or plasma urea nitrogen measurement (mass/volume) 21 mg/dL 7-18 Serum or plasma creatinine measurement (mass/volume) 1.06 mg/dL 0.60-1.30 Serum or plasma urea nitrogen/creatinine mass ratio 20 NRG Serum or plasma creatinine measurement with calculation of estimated glomerular filtration rate > NRG Serum or plasma glucose measurement (mass/volume) 130 mg/dL 70-105 Serum or plasma calcium measurement (mass/volume) 8.7 mg/dL 8.5-10.1 Serum or plasma total bilirubin measurement (mass/volume) 0.7 mg/dL 0.1-1.0 Serum or plasma alkaline phosphatase measurement (enzymatic activity/volume) 47 U/L 40-136 Serum or plasma aspartate aminotransferase measurement (enzymatic activity/volume) 20 U/L 5-34 Serum or plasma alanine aminotransferase measurement (enzymatic activity/volume) 44 U/L 0-55 Serum or plasma protein measurement (mass/volume) 5.8 g/dL 6.4-8.2 Serum or plasma albumin measurement (mass/volume) 3.4 g/dL 3.2-4.5 CALCIUM CORRECTED 9.2 mg/dL 8.5-10.1 Magnesium - 08/24/18 07:19 Magnesium 1.9 mg/dL 1.8-2.4 Capillary blood glucose measurement by glucometer (mass/volume) - 08/24/18 11:03 Capillary blood glucose measurement by glucometer (mass/volume) 134 mg/dL 70-110 Capillary blood glucose measurement by glucometer (mass/volume) - 08/24/18 15:39 Capillary blood glucose measurement by glucometer (mass/volume) 191 mg/dL 70-110 Capillary blood glucose measurement by glucometer (mass/volume) - 08/24/18 20:57 Capillary blood glucose measurement by glucometer (mass/volume) 195 mg/dL 70-110 Capillary blood glucose measurement by glucometer (mass/volume) - 08/25/18 05:33 Capillary blood glucose measurement by glucometer (mass/volume) 125 mg/dL 70-110 Automated blood complete blood count (hemogram) panel - 08/25/18 06:00 Blood leukocytes automated count (number/volume) 6.4 10*3/uL 4.3-11.0 Blood erythrocytes automated count (number/volume) [...] 10.0- 14.5 Automated blood platelet count (count/volume) 242 10*3/uL 130-400 Automated blood platelet mean volume measurement 9.7 [foz_us] 7.4-10.4 Comprehensive metabolic panel - 08/25/18 06:00 Serum or plasma sodium measurement (moles/volume) 137 mmol/L 135-145 Serum or plasma potassium measurement (moles/volume) 3.7 mmol/L 3.6-5.0 Serum or plasma chloride measurement (moles/volume) 106 mmol/L 98-107 Carbon dioxide 25 mmol/L 21-32 Serum or plasma anion gap determination (moles/volume) 6 mmol/L 5-14 Serum or plasma urea nitrogen measurement (mass/volume) 23 mg/dL 7-18 Serum or plasma creatinine measurement (mass/volume) 1.08 mg/dL 0.60-1.30 Serum or plasma urea nitrogen/creatinine mass ratio 21 NRG Serum or plasma creatinine measurement with calculation of estimated glomerular filtration rate > NRG Serum or plasma glucose measurement (mass/volume) 126 mg/dL 70-105 Serum or plasma calcium measurement (mass/volume) 8.8 mg/dL 8.5-10.1 Serum or plasma total bilirubin measurement (mass/volume) 0.5 mg/dL 0.1-1.0 Serum or plasma alkaline phosphatase measurement (enzymatic activity/volume) 46 U/L 40-136 Serum or plasma aspartate aminotransferase measurement (enzymatic activity/volume) 19 U/L 5-34 Serum or plasma alanine aminotransferase measurement (enzymatic activity/volume) 40 U/L 0-55 Serum or plasma protein measurement (mass/volume) 5.7 g/dL 6.4-8.2 Serum or plasma albumin measurement (mass/volume) 3.3 g/dL 3.2-4.5 CALCIUM CORRECTED 9.4 mg/dL 8.5-10.1 Magnesium - 08/25/18 06:00 Magnesium 2.3 mg/dL 1.8-2.4 Methicillin resistant Staphylococcus aureus (MRSA) screening culture - 08/25/18 06:20 Methicillin resistant Staphylococcus aureus (MRSA) screening culture NEG NRG Capillary blood glucose measurement by glucometer (mass/volume) - 08/25/18 11:04 Capillary blood glucose measurement by glucometer (mass/volume) 136 mg/dL 70-110 Capillary blood glucose measurement by glucometer (mass/volume) - 08/25/18 15:58 Capillary blood glucose measurement by glucometer (mass/volume) 157 mg/dL 70-110 Capillary blood glucose measurement by glucometer (mass/volume) - 08/25/18 20:55 Capillary blood glucose measurement by glucometer (mass/volume) 207 mg/dL 70-110 Capillary blood glucose measurement by glucometer (mass/volume) - 08/26/18 05:29 Capillary blood glucose measurement by glucometer (mass/volume) 119 mg/dL 70-110 Comprehensive metabolic panel - 08/26/18 06:35 Serum or plasma sodium measurement (moles/volume) 138 mmol/L 135-145 Serum or plasma potassium measurement (moles/volume) 3.9 mmol/L 3.6-5.0 Serum or plasma chloride measurement (moles/volume) 105 mmol/L 98-107 Carbon dioxide 25 mmol/L 21-32 Serum or plasma anion gap determination (moles/volume) 8 mmol/L 5-14 Serum or plasma urea nitrogen measurement (mass/volume) 28 mg/dL 7-18 Serum or plasma creatinine measurement (mass/volume) 1.09 mg/dL 0.60-1.30 Serum or plasma urea nitrogen/creatinine mass ratio 26 NRG Serum or plasma creatinine measurement with calculation of estimated glomerular filtration rate > NRG Serum or plasma glucose measurement (mass/volume) 116 mg/dL 70-105 Serum or plasma calcium measurement (mass/volume) 8.9 mg/dL 8.5-10.1 Serum or plasma total bilirubin measurement (mass/volume) 0.7 mg/dL 0.1-1.0 Serum or plasma alkaline phosphatase measurement (enzymatic activity/volume) 47 U/L 40-136 Serum or plasma aspartate aminotransferase measurement (enzymatic activity/volume) 18 U/L 5-34 Serum or plasma alanine aminotransferase measurement (enzymatic activity/volume) 34 U/L 0-55 Serum or plasma protein measurement (mass/volume) 5.8 g/dL 6.4-8.2 Serum or plasma albumin measurement (mass/volume) 3.4 g/dL 3.2-4.5 CALCIUM CORRECTED 9.4 mg/dL 8.5-10.1 Magnesium - 08/26/18 06:35 Magnesium 2.1 mg/dL 1.8-2.4 Capillary blood glucose measurement by glucometer (mass/volume) - 08/26/18 10:55 Capillary blood glucose measurement by glucometer (mass/volume) 150 mg/dL 70-110 Capillary blood glucose measurement by glucometer (mass/volume) - 08/26/18 16:15 Capillary blood glucose measurement by glucometer (mass/volume) 231 mg/dL 70-110 Capillary blood glucose measurement by glucometer (mass/volume) - 08/26/18 20:47 Capillary blood glucose measurement by glucometer (mass/volume) 159 mg/dL 70-110 Automated blood complete blood count (hemogram) panel - 08/27/18 06:05 Blood leukocytes automated count (number/volume) 6.4 10*3/uL 4.3-11.0 Blood erythrocytes automated count (number/volume) 4.16 10*6/uL 4.35-5.85 Venous blood hemoglobin measurement (mass/volume) 12.8 g/dL 13.3-17.7 Blood hematocrit (volume fraction) 39 % 40-54 Automated erythrocyte mean corpuscular volume 94 [foz_us] 80-99 Automated erythrocyte mean corpuscular hemoglobin (mass per erythrocyte) 31 pg 25-34 Automated erythrocyte mean corpuscular hemoglobin concentration measurement (mass/volume) 33 g/dL 32-36 Automated erythrocyte distribution width ratio 14.8 % 10.0- 14.5 Automated blood platelet count (count/volume) 243 10*3/uL 130-400 Automated blood platelet mean volume measurement 9.6 [foz_us] 7.4-10.4 Comprehensive metabolic panel - 08/27/18 06:05 Serum or plasma sodium measurement (moles/volume) 137 mmol/L 135-145 Serum or plasma potassium measurement (moles/volume) 4.2 mmol/L 3.6-5.0 Serum or plasma chloride measurement (moles/volume) 101 mmol/L 98-107 Carbon dioxide 28 mmol/L 21-32 Serum or plasma anion gap determination (moles/volume) 8 mmol/L 5-14 Serum or plasma urea nitrogen measurement (mass/volume) 24 mg/dL 7-18 Serum or plasma creatinine measurement (mass/volume) 1.03 mg/dL 0.60-1.30 Serum or plasma urea nitrogen/creatinine mass ratio 23 NRG Serum or plasma creatinine measurement with calculation of estimated glomerular filtration rate > NRG Serum or plasma glucose measurement (mass/volume) 156 mg/dL 70-105 Serum or plasma calcium measurement (mass/volume) 9.1 mg/dL 8.5-10.1 Serum or plasma total bilirubin measurement (mass/volume) 0.9 mg/dL 0.1-1.0 Serum or plasma alkaline phosphatase measurement (enzymatic activity/volume) 53 U/L 40-136 Serum or plasma aspartate aminotransferase measurement (enzymatic activity/volume) 19 U/L 5-34 Serum or plasma alanine aminotransferase measurement (enzymatic activity/volume) 35 U/L 0-55 Serum or plasma protein measurement (mass/volume) 6.3 g/dL 6.4-8.2 Serum or plasma albumin measurement (mass/volume) 3.6 g/dL 3.2-4.5 CALCIUM CORRECTED 9.4 mg/dL 8.5-10.1 Magnesium - 08/27/18 06:05 Magnesium 2.6 mg/dL 1.8-2.4 Capillary blood glucose measurement by glucometer (mass/volume) - 08/27/18 06:11 Capillary blood glucose measurement by glucometer (mass/volume) 150 mg/dL 70-110 Capillary blood glucose measurement by glucometer (mass/volume) - 08/27/18 11:08 Capillary blood glucose measurement by glucometer (mass/volume) 149 mg/dL 70-110 Encounters ACCT No. Visit Date/Time Discharge Status Pt. Type Provider Facility Loc./Unit Complaint [id number] 08/21/2018 05:48:00 08/21/2018 23:59:59 CLS Outpatient WALKER LOMELI MD [facility] PREOP COLONOSCOPY [id number] 08/21/2018 07:26:00 08/21/2018 10:20:00 DIS Emergency SHARON WEAVER MD [facility] ER DEHYDRATION [id number] 09/19/2017 20:21:00 09/19/2017 22:24:00 DIS Emergency SHARON WEAVER MD [facility] ER FALL/R FOOT INJ [id number] 07/10/2017 10:00:00 07/10/2017 12:48:00 DIS Inpatient GOLDY HINOJOSA DO [facility] 4TH URINE RETENTION,VAGAL TIC,2ND DEGREE AV BLOCK [id number] 07/04/2017 10:27:00 07/04/2017 23:59:59 CLS Outpatient JOEL LEONARD MD [facility] WOUNDCARE [id number] 07/01/2017 15:12:00 07/01/2017 23:59:59 CLS Outpatient GOLDY HINOJOSA DO [facility] RAD LT THYROID NODULE ON CT SCAN [id number] 06/27/2017 10:25:00 06/27/2017 23:59:59 CLS Outpatient JOEL LEONARD MD [facility] WOUNDCARE [id number] 06/27/2017 10:22:00 06/27/2017 23:59:59 CLS Outpatient GOLDY HINOJOSA DO [facility] RAD DENSITY LT PERIHILAR REGION [id number] 06/20/2017 10:25:00 06/20/2017 23:59:59 CLS Outpatient JOEL LEONARD MD [facility] WOUNDCARE [id number] 06/20/2017 10:21:00 06/20/2017 23:59:59 CLS Outpatient GOLDY HINOJOSA DO [facility] RAD INCREASED DENSITY LEFT HILUM [id number] 06/13/2017 10:10:00 06/13/2017 23:59:59 CLS Outpatient TERESITA MART APRN [facility] WOUNDCARE [id number] 06/12/2017 11:32:00 06/12/2017 16:44:00 DIS Emergency ARIEL TELLEZ, [facility] ER JERKY FEELING IN NECK CANNOT HOLD OBJECT [id number] 05/30/2017 10:50:00 05/30/2017 23:59:59 CLS Outpatient JOEL LEONARD MD [facility] WOUNDCARE [id number] 05/23/2017 12:36:00 05/23/2017 23:59:59 CLS Outpatient JOEL LEONARD MD [facility] LAB E11.621,I.97.512,I70.235 [id number] 05/23/2017 11:11:00 05/23/2017 23:59:59 CLS Outpatient JOEL LEONARD MD [facility] WOUNDCARE [id number] 01/22/2017 12:09:00 01/22/2017 23:59:59 CLS Outpatient DELMY ESTRADA [facility] RAD PAD I70.213 [id number] 01/01/2017 09:00:00 01/02/2017 10:50:00 DIS Outpatient CHANTALE TELLEZ FACCDEEJAY FACP CCDS [facility] CHEST PAIN,CAD [id number] 11/08/2015 07:19:00 11/08/2015 23:59:59 CLS Outpatient DELMY ESTRADA [facility] CARD CAD; CAROTID ARTERY DISEASE [id number] 11/24/2014 12:16:00 11/24/2014 23:59:59 CLS Outpatient GOLDY HINOJOSA DO [facility] RAD FEET COLD AND BLUE NO PULSE [id number] 04/06/2014 10:41:00 04/06/2014 23:59:59 CLS Outpatient GOLDY HINOJOSA DO [facility] RAD TRAUMA TO L FIRST TOE [id number] 11/30/2013 16:29:00 11/30/2013 23:59:59 CLS Outpatient GOLDY HINOJOSA DO [facility] RAD KICKED WALL PAIN IN TOES [id number] 08/27/2013 06:51:00 08/27/2013 23:59:59 CLS Outpatient DELMY ESTRADA [facility] CARD CHEST PAIN [id number] 08/27/2018 12:23:00 ACT Outpatient WALKER LOMELI MD [facility] ENDO HX POLYPS/DIARRHEA [id number] 08/21/2018 09:52:00 ACT Inpatient SAMANTHA ALMAZAN DO [facility] IRF GENERAL DEBILITY [id number] 11/24/2014 12:25:00 Document Registration [id number] 05/20/2012 11:30:00 Document Registration [id number] 04/30/2012 12:40:00 Document Registration [id number] 04/28/2012 14:46:00 Document Registration [id number] 08/16/2010 11:01:00 Document Registration [id number] 05/19/2010 05:45:00 Document Registration [id number] 03/16/2010 11:02:00 Document Registration [id number] 11/25/2009 08:46:00 Document Registration [id number] 09/14/2009 09:48:00 Document Registration [id number] 09/06/2009 19:11:00 Document Registration [id number] 08/09/2009 08:19:00 Document Registration [id number] 08/08/2009 08:47:00 Document Registration [id number] 08/04/2009 07:50:00 Document Registration [id number] 08/03/2009 12:48:00 Document Registration [id number] 11/24/2014 12:17:00 ACT Document Registration [id number] 07/19/2017 11:31:22 07/19/2017 23:59:59 [facility] Outpatient
--- NOTE | 2018-08-27 13:35 | NUR ---
PT TRANSFERRED PER W/C TO ENDO DEPT RM #4 FROM REHAB UNIT RM 232 ACCOMPANIED BY RN. PT A/O X4, COLOR PINK, SKIN W/D. RESP. EVEN AND UNLABORED ON RA. ORIENTED TO ENDO DEPT. PT ASSISTED TO CART; SIDERAILS UP X2. AWAITING FOR COLONOSCOPY PROC. WITH DR. LOMELI. CALL LIGHT WITHIN REACH; SIDERAILS UP X2. NO COMPLAINTS OR DISTRESS NOTED.
[2018-08-27 15:00] VITALS: BP 122/70
== END ==
LOC: ENDO 12:23
PROVIDERS: ATTEND Surgery
DX: K64.1 Second degree hemorrhoids (principal); K57.30 Diverticulosis of large intestine without perforation or abscess without bleeding; K52.9 Noninfective gastroenteritis and colitis, unspecified; R53.1 Weakness; I25.10 Atherosclerotic heart disease of native coronary artery without angina pectoris; E78.00 Pure hypercholesterolemia, unspecified; I12.9 Hypertensive chronic kidney disease with stage 1 through stage 4 chronic kidney disease, or unspecified chronic kidney disease; E66.9 Obesity, unspecified; E11.40 Type 2 diabetes mellitus with diabetic neuropathy, unspecified; H91.90 Unspecified hearing loss, unspecified ear; Z87.442 Personal history of urinary calculi; Z95.0 Presence of cardiac pacemaker; R25.1 Tremor, unspecified; I48.0 Paroxysmal atrial fibrillation; K21.9 Gastro-esophageal reflux disease without esophagitis; G47.33 Obstructive sleep apnea (adult) (pediatric); M10.9 Gout, unspecified; I73.9 Peripheral vascular disease, unspecified; N18.9 Chronic kidney disease, unspecified; M21.371 Foot drop, right foot; M21.372 Foot drop, left foot; Z87.891 Personal history of nicotine dependence; Z86.010 Personal history of colon polyps; Z68.30 Body mass index [BMI] 30.0-30.9, adult; Z79.899 Other long term (current) drug therapy

== ENCOUNTER → 2018-11-11 | Outpatient (CLI) | payer MEDICARE, OTHER ==
[~2018-11-11] MED LIST changes: +CATHETER FLUSH 10 ML SYR IV PRN; +CYAN-41 PO; -CYAN10006 PO; -LIDOCAINE JELLY 2% 6 ML SYRINGE MM PRN; -LIDOCAINE JELLY 2% 6 ML SYRINGE ONE; -MIDAZOLAM 2 MG/2 ML (VERSED) VIAL IVP ONE; -MIDAZOLAM 2 MG/2 ML (VERSED) VIAL ONE; -NS IV 500 ML 500 ML IV PRN; -NS IV 500 ML 500 ML ONE; -PROPOFOL INJECTION 50 ML IV ONE; +REGADENOSON 0.4 MG/5 ML SYR (LEXISCAN) IV ONE; -fentaNYL INJECTION 100 MCG/2 ML AMP IVP ONE; -fentaNYL INJECTION 100 MCG/2 ML AMP ONE
[2018-11-11 12:59] VITALS: BP 139/85
[2018-11-11 13:00] VITALS: BP 130/71
--- NOTE | 2018-11-11 16:08 | STRESS TEST ---
DATE OF SERVICE: 11/11/2018 RESTING AND POST REGADENOSON TECHNETIUM 99M TETROFOSMIN SPECT CT IMAGING ORDERING PHYSICIAN: Dr. Sellers. PRIMARY PHYSICIAN: Dr. Spaulding. CLINICAL DIAGNOSIS: Coronary artery disease. Baseline images were carried out after injection of 10.84 mCi of technetium-99m Tetrofosmin. This was followed by 0.4 mg Regadenoson and 27.8 mCi of technetium-99m Tetrofosmin for stress imaging. The electrocardiogram showed a paced ventricular rhythm throughout the study. The electrocardiogram did not change significantly with Regadenoson infusion. The patient noted some chest heaviness which resolved in a few minutes following Regadenoson infusion. Review of images at rest and following stress does not indicate any significant perfusion defects consistent with significant myocardial ischemia. There is apical thinning vs fixed apical defect. infusion. Gated mildly impaired global left ventricular systolic function and the ejection fraction is calculated to be 46%. and there appears to be apical hypokinesi. Left ventricular end-diastolic volume 71 mL. TID is absent (1.12). CONCLUSIONS: 1. Apical infarction without significant ischemia is suggested on this study 2. Mild impairment of global left ventricular systolic function with a calculated ejection fraction of 46%. Job ID: [id number] DocumentID: [id number] Dictated Date: 11/11/2018 15:56:34 Sap Abap Developer Date: 11/11/2018 16:08:25 Dictated By: DEEJAY SELLERS MD, MA, FACP, FACC, MTDD
== END ==
LOC: CARD 10:19
PROVIDERS: ATTEND Internal Medicine Cardiovascular Disease
DX: I51.7 Cardiomegaly (principal); I25.10 Atherosclerotic heart disease of native coronary artery without angina pectoris; I65.23 Occlusion and stenosis of bilateral carotid arteries; E11.22 Type 2 diabetes mellitus with diabetic chronic kidney disease; I12.9 Hypertensive chronic kidney disease with stage 1 through stage 4 chronic kidney disease, or unspecified chronic kidney disease; N18.3 Chronic kidney disease, stage 3 (moderate); E78.5 Hyperlipidemia, unspecified; I73.9 Peripheral vascular disease, unspecified; G47.33 Obstructive sleep apnea (adult) (pediatric)
CPT/HCPCS: 78452; 93017; 93306

== ENCOUNTER 2018-12-31 05:35 | Outpatient (CLI) | payer MEDICARE, OTHER ==
[~2018-12-31] VITALS: Ht 175.3 cm; Wt 95.5 kg
[~2018-12-31 05:35] MED LIST changes: -CATHETER FLUSH 10 ML SYR IV PRN; -REGADENOSON 0.4 MG/5 ML SYR (LEXISCAN) IV ONE
[2018-12-31] MEDS ORDERED: ACID1TAB PO (09:46)
== END 2018-12-31 09:53 | disposition home or self-care (01) ==
LOC: PREOP 05:35
PROVIDERS: ATTEND Orthopaedic Surgery
DX: Z01.818 Encounter for other preprocedural examination (principal)

== ENCOUNTER 2019-01-06 09:18 | Inpatient (IN) | payer MEDICARE, OTHER ==
[~2019-01-06] VITALS: Ht 175.3 cm; Wt 95.4 kg
[2019-01-06] VITALS (14 sets, daily range): BP systolic 133–168; BP diastolic 77–93
--- NOTE | 2019-01-06 | NUR ---
PATIENT C/O A HIGH PITCH SOUND IN HIS ROOM. MAINTENANCE EXAMINED ROOM AND UNABLE TO LOCATE THE CAUSE. GAVE EAR PLUGS TO THE PATIENT AND OFFERED FOR THE PATIENT TO SWITCH ROOMS PATIENT STATES "NO THANK YOU". BUT ADDED THAT IF HE HAS TO STAY ANOTHER DAY THAT HE WOULD LIKELY WANT TO MOVE TO A NEW ROOM. 2229-PATIENT HAD C/O OF LEFT SIDED CHEST PAIN FOR AWHILE. HOWEVER, THE PATIENT DESCRIBES THE PAIN SHARP AND INTERMITTENT. 399-PATIENT NO LONGER DESCRIBES PAIN "CHEST PAIN". RATHER, PATIENT DESCRIBES LEFT SIDED PAIN.
[~2019-01-06 09:18] MED LIST changes: +ACID1TAB PO
[2019-01-06] MEDS ORDERED: BUPIVACAINE 0.5% 30 ML (SENSORCAINE) VIAL ONE (09:30)
[2019-01-06] MEDS ORDERED: NEO/POLY/BAC (NEOSPORIN) OINT 15 GM TUBE ONE (09:30)
[2019-01-06] MEDS ORDERED: ONDANSETRON 4 MG/2 ML (SDV) Z0FRAN ONE (09:49)
[2019-01-06] MEDS ORDERED: fentaNYL INJECTION 100 MCG/2 ML AMP ONE (09:49)
[2019-01-06] MEDS ORDERED: SEVOFLURANE (ULTANE) 15 ML INHAL SOLN ONE (09:49)
[2019-01-06] MEDS ORDERED: LIDOCAINE PF 2% 5 ML (XYLOCAINE) VIAL ONE (09:49)
[2019-01-06] MEDS ORDERED: proPOfol 200 MG/20 ML (DIPRIVAN) VIAL IV ONE (09:49)
[2019-01-06] MEDS ORDERED: LACTATED RINGERS 1,000 ML IV PRN (09:54)
[2019-01-06] MEDS ORDERED: ceFAZolin 2 GM IV Premixed 50 ML ONE (09:59)
[2019-01-06] MEDS ORDERED: ceFAZolin 2 GM/50 ML PRE-MIX IV ONE (10:15)
[2019-01-06] MEDS ORDERED: HYDR-4227 PO (10:21)
--- NOTE | 2019-01-06 10:23 | Discharge Inst-Simple/Standard ---
Discharge Inst-Standard Reconcile Patient Problems Problems Reviewed?: Yes Discharge Medications New, Converted or Re-Newed RX: RX on Chart Patient Instructions/Follow Up Plan of Care/Instructions/FU: f/u 7 days Activity as Tolerated: No Discharge Diet: No Restrictions Return to The Hospital For: concerns, remove dressing tomorrow, then cover with large bandaid KAMAR SWIFT APRN Jan 06, 2019 10:23
--- NOTE | 2019-01-06 11:02 | Progress Note-Pre Operative ---
Pre-Operative Progress Note H&P Reviewed The H&P was reviewed, patient examined and no changes noted. Date Seen by Provider: Jan 06, 2019 Time Seen by Provider: 10:00 Date H&P Reviewed: Jan 06, 2019 Time H&P Reviewed: 10:00 Pre-Operative Diagnosis: Cubital Tunnel Syndrome Right Elbow HUNG GARCIA DO Jan 06, 2019 11:02
--- NOTE | 2019-01-06 11:03 | Progress Note-Post Operative ---
Post-Operative Progess Note Surgeon (s)/Jack Setter (s) Surgeon HUNG GARCIA DO Jack Setter: Clifford Ugalde POISING INSPECTOROsvaldo Pre-Operative Diagnosis Cubital Tunnel Syndrome Right Elbow Post-Operative Diagnosis same Procedure & Operative Findings Date of Procedure 01/06/19 Procedure Performed/Findings Ulnar Nerve Decompression Right Elbow Anesthesia Type General Estimated Blood Loss Estimated blood loss (mL): min Specimens/Packing Specimens Removed none HUNG GARCIA DO Jan 06, 2019 11:03
[2019-01-06] MEDS ORDERED: morphine INJ 10 MG/ML 1ML (SYR OR VIAL) IVP ONE (11:15)
[2019-01-06] MEDS ORDERED: ONDANSETRON 4 MG/2 ML (SDV) Z0FRAN IVP PRN ×2 (11:15→15:00)
[2019-01-06] MEDS ORDERED: morphine INJ 10 MG/ML 1ML (SYR OR VIAL) ONE (11:19)
--- NOTE | 2019-01-06 12:10 | NUR ---
TO AMB SURG FROM PAR PER CART. ALERT, DENIES RIGHT ELBOW PAIN. KERLIX AND CONFORM GAUZE DRESSING D/I TO RIGHT ELBOW, ELEVATED, ICE PACK ON. ABLE TO MOVE FINGERS AND HAND EASILY, CAP REFILL <3 SECONDS, CAN FEEL TOUCH, HAND WARM AND PINK. C/O LEFT CHEST DISCOMFORT AT PACEMAKER SITE, RATES 5. UNABLE TO DEFINE IF PAIN IS MORE INTERNAL OR SUPERFICIAL. DESCRIBES DULL ACHE. VITAL SIGNS STABLE. ON O2 AT 3L PER NC.
--- NOTE | 2019-01-06 12:40 | NUR ---
NO CHANGE IN RIGHT ELBOW ASSESSMENT. NO CHANGE IN ASSESSMENT OF LEFT CHEST PAIN. SETH SYKES, ER, AT BEDSIDE TO RUN INTERROGATION PROGRAM ON [employer] PACEMAKER.
--- NOTE | 2019-01-06 12:52 | Progress Note ---
Standard Progress Note Progress Notes/Assess & Plan Date Seen by a Provider: Jan 06, 2019 Time Seen by a Provider: 12:47 Progress/Assessment & Plan Post operatively patient complaining of chest discomfort on left side of chest below his pacemaker site. Patient not giving a clear answers if pain is radiating or not. Pt rates pain at 5/10. Patient does not appear to be in any distress. EKG obtained. Spoke with Dr. Sellers about patient. Requests that patient be admitted and to be consulted. Akiko Borrego RN calling to have patient admitted. KURT SCHMITZ CRNA Jan 06, 2019 12:52
--- NOTE | 2019-01-06 13:08 | NUR ---
CALL RECEIVED FROM SIMON ROBLERO, [employer] REP. REPORT RECEIVED THAT NO PACEMAKER PROBLEMS WERE RECORDED TODAY OR IN THE RECENT PAST. PT HAS DUAL CHAMBER PACEMAKER, NO DEFIBRILLATOR FUNCTION, PACEMAKER ONLY. INFO RELAYED TO Jemma SCHMITZ CRNA.
--- NOTE | 2019-01-06 13:15 | NUR ---
PT STATES "THE PAIN IN MY CHEST IS GONE, JUST ILA ALL OF THE SUDDEN, IT QUIT HURTING."
--- NOTE | 2019-01-06 13:35 | NUR ---
ORDER RECEIVED FROM DR HINES TO ADMIT PT FOR OBSERVATION. TRANSPORTED TO ICU PER CART, REPORT TO Enriqueta JEAN RN AND CARE OF PT TRANSFERRED TO ICU.
--- NOTE | 2019-01-06 14:29 | Consultation-Cardiology ---
HPI-Cardiology Cardiology Consultation: Date of Consultation 01/06/19 Time Seen by a Provider: 14:25 Date of Admission 01-06-19 Attending Physician Bianca Sellers MD [facility] Admitting Physician Leann Spaulding MD Consulting Physician Bianca Sellers MD HPI: Chief Complaint: Chest pain Mr. Mccarthy is an 83 year old male admitted to [facility] from Out pt day surg. He reports during surgery recovery he started having a pressure type pain over the site of his device. He report it did not radiate. No other assoc symptoms. He states it lasted for longer than 20 minutes. He describes it has mod in intensity. He reports they checked his pacemaker and afterwards the discomfort gradually resolved. He is pain free at this time. No c/o palpitations. No c/o dyspnea. Review of Systems-Cardiology Review of Systems Constitutional: No chills, No fever, No malaise Eyes: No vision change Ears/Nose/Throat: No epistaxis, No recent hearing loss Respiratory: As described under HPI Cardiovascular: As described under HPI Gastrointestinal: No constipation, No diarrhea, No nausea, No vomiting Genitourinary: No dysuria, No hematuria Musculoskeletal: no symptoms reported Skin: No rash on exposed areas, No ulcerations on exposed areas Psychiatric/Neurological: No seizure, No focal weakness, No syncope Hematologic: No bleeding abnormalities EEY-Bktwdj-Lycbpq Hx Patient Social History Alcohol Use: Denies Use Recreational Drug Use: No Smoking Status: Former Smoker 2nd Hand Smoke Exposure: No Recent Foreign Travel: No Recent Infectious Disease Expo: No Immunizations Up To Date Tetanus Booster (TDap): Unknown Date of Pneumonia Vaccine: Dec 23, 2017 Date of Influenza Vaccine: Dec 29, 2018 Past Medical History PMH As described under Assessment. Family Medical History Family History: Patient reports no known family medical history. Allergies and Home Medications Allergies Coded Allergies: metformin (Verified Adverse Reaction, Mild, Diarrhea, 01/06/19) Home Medications Acetaminophen 325 Mg Tablet, 325 MG PO TID, (Reported) Allopurinol 100 Mg Tablet, 100 MG PO 0700,1999, (Reported) Amlodipine Besylate 5 Mg Tablet, 5 MG PO 0700, (Reported) Aspirin 81 Mg Tablet.dr, 81 MG PO 1999, (Reported) Cholecalciferol (Vitamin D3) 1,000 Unit Capsule, 1,000 UNIT PO 0700, (Reported) Clopidogrel Bisulfate 75 Mg Tablet, 75 MG PO 2000, (Reported) Cyanocobalamin (Vitamin B-12) 1,000 Mcg Tablet, 1,000 MCG PO 0700, (Reported) Finasteride 5 Mg Tablet, 5 MG PO 0700, (Reported) Glimepiride 4 Mg Tablet, 4 MG PO 0700, (Reported) Hydrocodone/Acetaminophen 1 Each Tablet, 1 TAB PO Q4H Prescribed by: KAMAR SWIFT on 01/06/19 1021 L. Acidophilus/Bulgaricus 1 Each Tablet, 1 TAB PO BID, (Reported) Tamsulosin HCl 0.4 Mg Cap, 0.4 MG PO 1999, (Reported) Patient Home Medication List Home Medication List Reviewed: Yes Physical Exam-Cardiology Physical Exam Vital Signs/I&O Capillary Refill : Less Than 3 Seconds Constitutional: AAO x 3, well-developed, well-nourished HEENT: PERRL, hearing is well preserved, oral hygience is good Neck: No carotid bruit; carotid pulses are 2 + bilaterally Respiratory: No accessory muscle use, No respiratory distress; chest expansion is symmetric, chest is bilaterally symmetric Cardiovascular: regular rate-rhythm; No JVD; S1 and S2 Gastrointestinal: No tender; soft, round, audible bowel sounds Rectal: deferred Extremities: no lower extremity edema bilateral Neurologic/Psychiatric: grossly intact Skin: No rash on exposed areas, No ulcerations on exposed areas; other (dressing to right elbow/FA D&I) Data Review Labs Microbiology 01/06/19 MRSA Screen - Final, Complete MRSA not isolated A/P-Cardiology Assessment/Admission Diagnosis Episode of chest discomfort of undetermined etiology Coronary artery disease and ischemic cardiomyopathy (see below) Cardiac cath of January 01, 2017: 70-80% mid vessel stenosis of fhe LAD to which successful stenting was carried out with a Resolute 2.25 x 22 mm stent deployed at 16 atmospheres with reduction of stenosis to 0%. A more proximal LAD stent is widely patent. A very small caliber first diagonal branch is jailed by the stnet and has 70% ostial stenosis but is not amenable to intervention d/t small vessel size. 50% mid vessel stenosis left cx artery with a FFR of greater than 0.9, indicating hemodynamic insignificance. Patent stents in the prox and mid RCA with proximal stent exhibiting approx 40-50% in stent restenosis. Mild to mod LVEDP elevation MPI of 11/11/18: apical infarction w/o ischemia; LVEF 46% Echo of 11/11/18: LVEF 40-45%, apical akinesis, RVSP 30 mmHg PPM implant at [facility] in June 2017 for marked bradycardia, followed by Dr Torres in [place], [place] H/O PAF documented during hospitalization of June 2017 at [facility] (in the setting of ac renal failure) - Eliquis started at that time, but was stopped during hospitalization at [facility] (Dr Torres) History of isolated premature atrial and ventricular contractions. Mild carotid artery disease per carotid ultrasonography of 07/14/18 Chronic intermittent leg swelling, likely related to venous insufficiency, currently controlled Chronic intermittent diarrhea of undetermined etiology, currently stable. Degenerative joint disease. Gastroesophageal reflux. Sleep apnea, being treated with C-PAP therapy. Hypertension, under good control. Gout. Hyperlipidemia being treated with lovastatin. Borderline maturity onset diabetes mellitus. Obesity with a body mass index of approximately 31 Chronic poor balance being followed by Dr. Ashraf. PAD. Scattered atherosclerotic disease of the bilateral lower extremity arterial systems, no hemodynamically significant stenosis per bilateral lower extremity arterial Doppler from 04/30/2012. U/S from 11-24-14 showed no sonographic evidence for hemodynamically significant stenosis or arterial occlusion within either leg. Seg pressures on 05/24/17 WNL Ac renal failure in June 2017. 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
[2019-01-06 14:54] LABS: BASOPHILS # (AUTO) 0.1 10^3/uL (0.0-0.1); BASOPHILS % (AUTO) 1 % (0-10); EOSINOPHILS # (AUTO) 0.2 10^3/uL (0.0-0.3); EOSINOPHILS % (AUTO) 3 % (0-10); HEMATOCRIT 40 % (40-54); HEMOGLOBIN 13.1 G/DL (13.3-17.7); LYMPHOCYTES # (AUTO) 1.4 X 10^3 (1.0-4.0); LYMPHOCYTES % (AUTO) 24 % (12-44); MEAN CORPUSCULAR HEMOGLOBIN 32 PG (25-34); MEAN CORPUSCULAR HGB CONC 33 G/DL (32-36); MEAN CORPUSCULAR VOLUME 96 FL (80-99); MONOCYTES # (AUTO) 0.4 X 10^3 (0.0-1.0); MONOCYTES % (AUTO) 7 % (0-12); NEUTROPHILS # (AUTO) 3.9 X 10^3 (1.8-7.8); NEUTROPHILS % (AUTO) 66 % (42-75); PLATELET COUNT 175 10^3/uL (130-400); RED CELL DISTRIBUTION WIDTH 13.8 % (10.0-14.5); WHITE BLOOD COUNT 5.9 10^3/uL (4.3-11.0)
[2019-01-06] MEDS ORDERED: PATIENT MAY USE OWN MEDS, ALL PO SCH (15:00)
[2019-01-06] MEDS ORDERED: morphine INJ 10 MG/ML 1ML (SYR OR VIAL) IVP PRN (15:00)
--- NOTE | 2019-01-06 15:11 | Diagnostic Imaging Report ---
INDICATION: Chest pain. TIME OF EXAM: 02:58 p.m. COMPARISON: Comparison is made with prior chest from 07/10/2017. FINDINGS: The heart size is stable. Cardiac pacemaker has been placed and has lead tips in the region of the right atrium and right ventricle. Right hemidiaphragm is mildly elevated. Lungs are clear. There is no pneumothorax. IMPRESSION: Pacemaker placement since prior study. No acute feature is detected. Dictated by: Dictated on workstation # [id number]
[2019-01-06 15:14] LABS: ALANINE AMINOTRANSFERASE 25 U/L (0-55); ALBUMIN 3.7 GM/DL (3.2-4.5); ALKALINE PHOSPHATASE 62 U/L (40-136); BILIRUBIN,TOTAL 0.8 MG/DL (0.1-1.0); BUN/CREATININE RATIO 21; CALCIUM 8.5 MG/DL (8.5-10.1); CARBON DIOXIDE 24 MMOL/L (21-32); CHLORIDE 107 MMOL/L (98-107); CREATININE SERUM 1.17 MG/DL (0.60-1.30); GFR ESTIMATED 59; GLUCOSE 112 MG/DL (70-105); POTASSIUM 4.2 MMOL/L (3.6-5.0); SODIUM 137 MMOL/L (135-145); TOTAL PROTEIN 6.3 GM/DL (6.4-8.2)
[2019-01-06 15:44] LABS: PROTHROMBIN TIME PATIENT 13.7 SEC (12.2-14.7)
--- NOTE | 2019-01-06 16:11 | OPERATIVE REPORT ---
DATE OF SERVICE: 01/06/2019 PREOPERATIVE DIAGNOSIS: Cubital tunnel syndrome, right elbow. POSTOPERATIVE DIAGNOSIS: Cubital tunnel syndrome, right elbow. PROCEDURE: Ulnar nerve decompression, right elbow. SURGEON: Mauricio Garcia DO STROBOSCOPE OPERATOR: NATANAEL Barakat ANESTHESIA: General. COMPLICATIONS: None. ESTIMATED BLOOD LOSS: Minimal. INDICATIONS AND FINDINGS: The patient is an 83-year-old male seen with chief complaint of progressive pain, numbness and tingling in the ulnar nerve distribution of the right hand. The patient had a previous EMG nerve conduction study confirming cubital tunnel syndrome on the right. This test was done approximately a year ago. He has diabetes mellitus. The patient continued to have persistent symptoms, was felt to be medically stable for an ulnar nerve decompression. This was performed on today's date without complication. PROCEDURE IN DETAIL: The patient was taken to the operating room and placed supine upon the operating table and a general inhalation anesthetic was administered. A well-padded pneumatic tourniquet was placed about the upper aspect of the right arm. A ChloraPrep and sterile drape of the right upper extremity was performed. The right arm was elevated, exsanguinated and the tourniquet was inflated to 250 mmHg pressure. A curvilinear incision was made posterior to the medial epicondyle of the right elbow under loupe magnification visualization. Incision was deepened. The patient had significant thickened fibrous bands overlying the ulnar nerve. This was initially opened. The ulnar nerve was identified. The bands were divided down into the flexor carpi ulnaris muscle. The ulnar nerve was decompressed approximately 3.5 cm proximal to the medial epicondyle as well. The elbow was flexed and extended with no subluxation of the ulnar nerve identified. The tourniquet was released. The wound was irrigated with normal saline solution. Hemostasis of the skin edges was obtained with electrocautery. The subcutaneous tissues were closed with interrupted 3-0 Vicryl suture. The skin was closed with a running suture of 4-0 nylon and Adaptic Neosporin bulky dressing was placed about the right elbow after infiltrating the skin edges were Marcaine anesthetic. The patient was awakened and was transported to postop recovery with anesthesia personnel present in satisfactory condition. Job ID: [id number] DocumentID: [id number] Dictated Date: 01/06/2019 11:08:17 Oxygraph Operator Date: 01/06/2019 16:10:15 Dictated By: MAURICIO GARCIA DO
--- NOTE | 2019-01-06 16:25 | History & Physical ---
History of Present Illness History of Present Illness Reason for visit/HPI PT IS AN 83 Y/O MALE WHO IS KNOWN TO ME FROM CLINIC. HE HAD A PROCEDURE TODAY WITH DR. GARCIA AND POST-OPERATIVELY ANESTHESIA WAS WAKING UP THE PATIENT, HE STARTED TO COMPLAIN OF CHEST PAIN. ANESTHESIA CALLED CARDIOLOGY WHO CALLED ME TO REPORT THAT HE NEEDED ADMISSION TO THE HOSPITAL TO RULE OUT CHEST PAIN CAUSED BY A CARDIAC EVENT. THE PT REPORTS THAT ABOUT 5 MINUTES AFTER ANESTHESIA WALKED OUT OF HIS ROOM TO CALL THE [employer] REPAIRER, HIS CHEST PAIN RESOLVED AND IT HAS NOT RECURRED. Date of Admission Jan 06, 2019 at 13:00 Date Seen by a Provider: Jan 06, 2019 Time Seen by a Provider: 16:30 I consulted on this patient on 01/06/19 16:30 Attending Physician Bianca Sellers MD [facility] Admitting Physician Mary Spaulding MD Consult DR. SELLERS Allergies and Home Medications Allergies Coded Allergies: metformin (Verified Adverse Reaction, Mild, Diarrhea, 01/06/19) Home Medications Acetaminophen 325 Mg Tablet, 325 MG PO TID, (Reported) Allopurinol 100 Mg Tablet, 100 MG PO 0700,1999, (Reported) Amlodipine Besylate 5 Mg Tablet, 5 MG PO 0700, (Reported) Aspirin 81 Mg Tablet.dr, 81 MG PO 2000, (Reported) Cholecalciferol (Vitamin D3) 1,000 Unit Capsule, 1,000 UNIT PO 0700, (Reported) Clopidogrel Bisulfate 75 Mg Tablet, 75 MG PO 2000, (Reported) Cyanocobalamin (Vitamin B-12) 1,000 Mcg Tablet, 1,000 MCG PO 0700, (Reported) Finasteride 5 Mg Tablet, 5 MG PO 0700, (Reported) Glimepiride 4 Mg Tablet, 4 MG PO 0700, (Reported) Hydrocodone/Acetaminophen 1 Each Tablet, 1 TAB PO Q4H Prescribed by: KAMAR SWIFT on 01/06/19 1021 L. Acidophilus/Bulgaricus 1 Each Tablet, 1 TAB PO BID, (Reported) Tamsulosin HCl 0.4 Mg Cap, 0.4 MG PO 1999, (Reported) Patient Home Medication List Home Medication List Reviewed: Yes Past Xjqbmrd-Qszipy-Oswdqs Hx Past Med/Social Hx: Reviewed Nursing Past Med/Soc Hx Patient Social History Marrital Status: Employed/Student: retired Alcohol Use: Denies Use Recreational Drug Use: No Smoking Status: Former Smoker Former Smoker, Quit: Jul 10, 1991 2nd Hand Smoke Exposure: No Physical Abuse Screen: No Sexual Abuse: No Recent Foreign Travel: No Contact w/other who traveled: No Recent Hopitalizations: No Recent Infectious Disease Expo: No Immunizations Up To Date Tetanus Booster (TDap): Unknown Date of Pneumonia Vaccine: Dec 23, 2017 Date of Influenza Vaccine: Dec 29, 2018 Seasonal Allergies Seasonal Allergies: No Past Medical History Surgeries: Appendectomy, Coronary Stent, Gallbladder, Orthopedic, Pacemaker, Tonsillectomy Currently Using CPAP: Yes Cardiac: Coronary Artery Disease, High Cholesterol, Hypertension, Irregular Heartbeat Neurological: Neuropathy Reproductive: No Genitourinary: Kidney Stones Gastrointestinal: Irritable Bowel Musculoskeletal: Arthritis, Foot Drop, Gout Endocrine: Diabetes, Non-Insulin dep HEENT: Cataract Loss of Vision: Denies Hearing Impairment: Hard of Hearing History of Blood Disorders: No Family History Reviewed Nursing Family Hx Patient reports no known family medical history. Hypertension Review of Systems Constitutional: No chills, No dizziness, No fever, No malaise, No weakness EENTM: No hoarseness, No throat pain Respiratory: No cough, No dyspnea on exertion, No short of breath Cardiovascular: chest pain (NOW RESOLVED CHEST PAIN); No palpitations Gastrointestinal: No abdominal pain, No constipation, No diarrhea, No nausea, No vomiting Genitourinary: no symptoms reported Musculoskeletal: No back pain; joint pain (ARTHRITIS OF HANDS) Skin: no symptoms reported Psychiatric/Neurological: Denies Anxiety, Denies Depressed, Denies Weakness All Other Systems Reviewed Negative Unless Noted: Yes Physical Exam Vital Signs Vital Signs - First Documented 01/06/19 09:25 Temp 36.3 Pulse 84 Resp 16 B/P (MAP) 140/77 (98) Pulse Ox 95 O2 Delivery Room Air Capillary Refill : Less Than 3 SecondsLess Than 3 Seconds Height, Weight, BMI Height: 5'9.00" Weight: 207lbs. 7.0oz. [id number]; 31.07 BMI Method:Stated General Appearance: No Apparent Distress, WD/WN Eyes: Bilateral Eye Normal Inspection, Bilateral Eye PERRL, Bilateral Eye EOMI HEENT: PERRL/EOMI, Pharynx Normal Neck: Full Range of Motion, Non Tender, Supple Respiratory: Chest Non Tender, Lungs Clear, Normal Breath Sounds, No Accessory Muscle Use Cardiovascular: Regular Rate, Rhythm, No Edema Gastrointestinal: Normal Bowel Sounds, Non Tender, Soft Rectal: Deferred Extremity: Normal Capillary Refill, Non Tender, No Calf Tenderness, No Pedal Edema, Other (RIGHT ARM WRAPPED IN SURGICAL DRESSING) Neurologic/Psychiatric: Alert, Oriented x3, No Motor/Sensory Deficits, Normal Mood/Affect, financial adviser II-XII Norm as Tested Skin: Warm/Dry Lymphatic: No Adenopathy Assessment/Plan Assessment and Plan CHEST PAIN HYPERTENSION RIGHT CUBITAL TUNNEL SYNDROME - IMMEDIATELY POST-OP CORONARY ARTERY DISEASE HX OF ISCHEMIC CARDIOMYOPATHY PACEMAKER DUE TO BRADYCARDIA CHEST PAIN - DOES NOT APPEAR TO BE CARDIAC IN NATURE, FIRST SET OF LABS ARE NEGATIVE - CONTINUE WITH MONITORING. HYPERTENSION - RESTART HOME REGIMEN. RIGHT CUBITAL TUNNEL SYNDROME - IMMEDIATELY POST-OP - DEFER TO SURGEON CORONARY ARTERY DISEASE WITH HX OF ISCHEMIC CARDIOMYOPATHY AND HX OF PACEMAKER DUE TO BRADYCARDIA - DEFER TO CARDIOLOGY -AT THIS POINT IN TIME - THERE DOES NOT APPEAR TO BE ANY CHANGES OR TREATMENTS THAT NEED TO BE RENDERED OTHER THAN MONITORING OF LABS AND MONITORING OF EKG WELL RESUMPTION OF HOME REGIMEN. ANTICIPATE DISCHARGE TOMORROW MORNING. Admission Diagnosis CHEST PAIN HYPERTENSION RIGHT CUBITAL TUNNEL SYNDROME - IMMEDIATELY POST-OP CORONARY ARTERY DISEASE HX OF ISCHEMIC CARDIOMYOPATHY PACEMAKER DUE TO BRADYCARDIA Admission Status: Observation Clinical Quality Measures DVT/VTE Risk/Contraindication: Risk Factor Score Per Nursin RFS Level Per Nursing on Admit: 2=Moderate MARY SPAULDING MD Jan 06, 2019 16:25
[2019-01-06] MEDS: LACTOBACILLUS ACIDOPHILUS (PROBIOTIC) CAPSULE PO SCH (18:31)
--- NOTE | 2019-01-06 19:22 | Consultation-Cardiology ---
HPI-Cardiology Cardiology Consultation: Date of Consultation 01/06/19 Time Seen by a Provider: 18:50 Date of Admission Attending Physician Bianca Sellers MD, MA FACP [facility] Admitting Physician Leann Spaulding MD Consulting Physician BIANCA SELLERS MD, MA, FACP, FAC, [facility], [facility] HPI: Chief Complaint: CC: Chest pain HPI: Mr. Mccarthy is an 83 year old male admitted to [facility] from Out pt day surg. He reports during surgery recovery he started having a pressure type pain over the site of his device. He report it did not radiate. No other assoc symptoms. He states it lasted for longer than 20 minutes. He describes it has mod in intensity. He reports they checked his pacemaker and afterwards the discomfort gradually resolved. He is pain free at this time. No c/o palpitations. No c/o dyspnea. Review of Systems-Cardiology Review of Systems Constitutional: No chills, No fever, No malaise Eyes: No vision change Ears/Nose/Throat: No epistaxis, No recent hearing loss Respiratory: As described under HPI Cardiovascular: As described under HPI Gastrointestinal: No constipation, No diarrhea, No nausea, No vomiting Genitourinary: No dysuria, No hematuria Musculoskeletal: no symptoms reported Skin: No rash on exposed areas, No ulcerations on exposed areas Psychiatric/Neurological: No seizure, No focal weakness, No syncope Hematologic: No bleeding abnormalities All Other Systems Reviewed Negative Unless Noted: Yes [id number]-[id number]-[id number] Hx Patient Social History Marrital Status: Employed/Student: retired Alcohol Use: Denies Use Recreational Drug Use: No Smoking Status: Former Smoker 2nd Hand Smoke Exposure: No Recent Foreign Travel: No Recent Infectious Disease Expo: No Physical Abuse Screen: No Sexual Abuse: No Immunizations Up To Date Tetanus Booster (TDap): Unknown Date of Pneumonia Vaccine: Mar 25, 2017 Date of Influenza Vaccine: Dec 31, 2018 Past Medical History PMH As described under Assessment. Family Medical History Family History: Patient reports no known family medical history. Allergies and Home Medications Allergies Coded Allergies: metformin (Verified Adverse Reaction, Mild, Diarrhea, 01/06/19) Home Medications Acetaminophen 325 Mg Tablet, 325 MG PO TID, (Reported) Allopurinol 100 Mg Tablet, 100 MG PO 0700,1999, (Reported) Amlodipine Besylate 5 Mg Tablet, 5 MG PO 0700, (Reported) Aspirin 81 Mg Tablet.dr, 81 MG PO 1999, (Reported) Cholecalciferol (Vitamin D3) 1,000 Unit Capsule, 1,000 UNIT PO 0700, (Reported) Clopidogrel Bisulfate 75 Mg Tablet, 75 MG PO 1999, (Reported) Cyanocobalamin (Vitamin B-12) 1,000 Mcg Tablet, 1,000 MCG PO 0700, (Reported) Finasteride 5 Mg Tablet, 5 MG PO 0700, (Reported) Glimepiride 4 Mg Tablet, 4 MG PO 0700, (Reported) Hydrocodone/Acetaminophen 1 Each Tablet, 1 TAB PO Q4H Prescribed by: KAMAR SWIFT on 01/06/19 1021 L. Acidophilus/Bulgaricus 1 Each Tablet, 1 TAB PO BID, (Reported) Tamsulosin HCl 0.4 Mg Cap, 0.4 MG PO 1999, (Reported) Patient Home Medication List Home Medication List Reviewed: Yes Physical Exam-Cardiology Physical Exam Vital Signs/I&O 01/06/19 01/06/19 01/06/19 01/06/19 09:25 11:04 11:04 11:10 Temp 36.3 36.1 Pulse 84 Resp 16 16 14 B/P (MAP) 140/77 (98) 136/93 (107) 140/88 (105) Pulse Ox 95 98 99 O2 Delivery Room Air OxyMask OxyMask OxyMask O2 Flow Rate 10 10 10 01/06/19 01/06/19 01/06/19 01/06/19 11:20 11:30 11:30 11:40 Resp 14 16 14 B/P (MAP) 146/89 (108) 139/90 (106) 154/90 (111) Pulse Ox 100 100 95 O2 Delivery OxyMask OxyMask OxyMask Room Air O2 Flow Rate 10 10 10 01/06/19 01/06/19 01/06/19 01/06/19 11:50 12:00 12:10 12:10 Temp 36.1 35.8 Pulse 81 Resp 14 13 18 B/P (MAP) 157/93 (114) 157/90 (112) 162/91 Pulse Ox 100 99 99 O2 Delivery Nasal Cannula Nasal Cannula Nasal Cannula Room Air O2 Flow Rate 3 3 3 10/15/19 10/15/19 10/15/19 10/15/19 12:40 13:10 13:40 16:00 Temp 36.8 36.3 36.1 36.1 Pulse 86 80 87 86 Resp 16 18 20 20 B/P (MAP) 133/88 158/86 144/84 (104) 163/83 (109) Pulse Ox 98 98 94 96 O2 Delivery Room Air Room Air Room Air Room Air 01/06/19 01/06/19 16:00 16:06 Pulse 82 Pulse Ox 97 O2 Delivery Room Air Capillary Refill : Less Than 3 SecondsLess Than 3 Seconds Constitutional: AAO x 3, well-developed, well-nourished HEENT: PERRL, hearing is well preserved, oral hygience is good Neck: No carotid bruit; carotid pulses are 2 + bilaterally Respiratory: No accessory muscle use, No respiratory distress; chest expansion is symmetric, chest is bilaterally symmetric Cardiovascular: regular rate-rhythm; No JVD; S1 and S2 Gastrointestinal: No tender; soft, round, audible bowel sounds Rectal: deferred Extremities: no lower extremity edema bilateral Neurologic/Psychiatric: grossly intact Skin: No rash on exposed areas, No ulcerations on exposed areas; other (dressing to right elbow/FA D&I) Data Review Labs Laboratory Tests 01/06/19 09:37: Glucometer 135H 01/06/19 14:50: White Blood Count 5.9, Red Blood Count 4.16L, Hemoglobin 13.1L, Hematocrit 40, Mean Corpuscular Volume 96, Mean Corpuscular Hemoglobin 32, Mean Corpuscular Hemoglobin Concent 33, Red Cell Distribution Width 13.8, Platelet Count 175, Mean Platelet Volume 10.0, Neutrophils (%) (Auto) 66, Lymphocytes (%) (Auto) 24, Monocytes (%) (Auto) 7, Eosinophils (%) (Auto) 3, Basophils (%) (Auto) 1, Neut rophils # (Auto) 3.9, Lymphocytes # (Auto) 1.4, Monocytes # (Auto) 0.4, Eosinophils # (Auto) 0.2, Basophils # (Auto) 0.1, Sodium Level 137, Potassium Level 4.2, Chloride Level 107, Carbon Dioxide Level 24, Anion Gap 6, Blood Urea Nitrogen 24H, Creatinine 1.17, Estimat Glomerular Filtration Rate 59, BUN/Creatinine Ratio 21, Glucose Level 112H, Calcium Level 8.5, Corrected Calcium 8.7, Magnesium Level 2.0, Total Bilirubin 0.8, Aspartate Amino Transf (AST/SGOT) 18, Alanine Aminotransferase (ALT/SGPT) 25, Alkaline Phosphatase 62, Myoglobin 108.0H, Troponin I < 0.028, Total Protein 6.3L, Albumin 3.7, Thyroid Stimulating Hormone (TSH) 0.66 01/06/19 15:15: Prothrombin Time 13.7, INR Comment 1.0 A/P-Cardiology Assessment/Admission Diagnosis Episode of chest discomfort of undetermined etiology Coronary artery disease and ischemic cardiomyopathy (see below) Cardiac cath of January 01, 2017: 70-80% mid vessel stenosis of fhe LAD to which successful stenting was carried out with a Resolute 2.25 x 22 mm stent deployed at 16 atmospheres with reduction of stenosis to 0%. A more proximal LAD stent is widely patent. A very small caliber first diagonal branch is jailed by the stnet and has 70% ostial stenosis but is not amenable to interv ention d/t small vessel size. 50% mid vessel stenosis left cx artery with a FFR of greater than 0.9, indicating hemodynamic insignificance. Patent stents in the prox and mid RCA with proximal stent exhibiting approx 40-50% in stent restenosis. 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 Mild carotid artery disease per carotid ultrasonography of 07/14/18 Chronic intermittent leg swelling, likely related to venous insufficiency, currently controlled Chronic intermittent diarrhea of undetermined etiology, currently stable. Degenerative joint disease. Gastroesophageal reflux. Sleep apnea, being treated with C-PAP therapy. Hypertension, under good control. Gout. Hyperlipidemia being treated with lovastatin. Borderline maturity onset diabetes mellitus. Obesity with a body mass index of approximately 31 Chronic poor balance being followed by Dr. Ashraf. PAD. Scattered atherosclerotic disease of the bilateral lower extremity arterial systems, no hemodynamically significant stenosis per bilateral lower extremity arterial Doppler from 04/30/2012. U/S from 11-24-14 showed no sonographic evidence for hemodynamically significant stenosis or arterial occlusion within either leg. Seg pressures on 05/24/17 WNL Ac renal failure in June 2017. 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
[2019-01-06] MEDS: CLOPIDOGREL 75 MG (PLAVIX) TABLET PO SCH (19:59)
[2019-01-06] MEDS: TAMSULOSIN 0.4 MG (FLOMAX) CAP PO SCH (20:00)
[2019-01-06] MEDS: ASPIRIN E.C. 81 MG (ECOTRIN) TAB PO SCH (20:00)
[2019-01-06] MEDS: ALLOPURINOL 100 MG (ZYLOPRIM) TAB PO SCH (20:00)
[2019-01-06] MEDS: ACETAMINOPHEN 325 MG TABLET PO SCH (21:00)
--- NOTE | 2019-01-06 21:25 | NUR ---
CALLED DR. KENYON AND INFORMED HIM THAT PATIENT'S TROPONIN WAS NOW ELEVATED AT 0.048. RECEIVED ORDER TO REPEAT LAB IN AM. 2229-PATIENT C/O CHEST PAIN ON LEFT SIDE OF CHEST. PATIENT DENIED NEED FOR PAIN MEDICATION AT THIS TIME. EKG OBTAINED AND PLACED ON CHART. 2244-PATIENT DENIES ANYMORE CHEST PAIN AT THIS TIME.
[2019-01-07] VITALS: BP 170/79
[2019-01-07 04:00] VITALS: BP 144/79
--- NOTE | 2019-01-07 04:00 | NUR ---
PATIENT NO LONGER DESCRIBES PAIN "CHEST PAIN". PATIENT DESCRIBES SHARP, INTERMITTENT PAIN ON HIS LEFT SIDE. EXAMINED LEFT SIDE OF PATIENT AND DID NOT FIND ANY INDICATION TO WHY HE WOULD HAVE PAIN IN THAT LOCATION. WILL CONTINUE TO MONITOR.
[2019-01-07 04:16] LABS: CARDIAC PROFILE 2 0.079 NG/ML (<0.028)
--- NOTE | 2019-01-07 07:40 | Anesthesia-General Post-Op ---
General Patient Condition Mental Status/LOC: Same as Preop Cardiovascular: Satisfactory Nausea/Vomiting: Absent Respiratory: Satisfactory Pain: Controlled Complications: Absent Post Op Complications Complications None Follow Up Care/Instructions Patient Instructions None needed. Anesthesia/Patient Condition Patient Condition Patient is doing well, no complaints, stable vital signs, no apparent adverse anesthesia problems. No complications reported per nursing. DANIELE ROBERTSON CRNA Jan 07, 2019 07:40
[2019-01-07 08:00] VITALS: BP 146/83
--- NOTE | 2019-01-07 08:02 | Progress Note ---
Subjective Date Seen by a Provider: Jan 07, 2019 Time Seen by a Provider: 08:30 Subjective/Events-last exam PT REPORTS AN EPISODE OF CHEST PAIN THIS MORNING - SEEMED TO BE IN LEFT LOWER RIB REGION, NOT OVER HEART OR IN SHOULDER OR JAW ON LEFT SIDE. HE REPORTS THAT HE HAD AN AWFUL NIGHT DUE TO THE LOUD NOISE IN THE PIPES/AIR HANDLING SYSTEM IN HIS ROOM. Review of Systems General: No Chills; Fatigue Pulmonary: No Dyspnea, No Cough Cardiovascular: Chest Pain Gastrointestinal: No: Nausea, Abdominal Pain Genitourinary: No Dysuria Neurological: No: Weakness, Confusion Objective Exam Last Set of Vital Signs Vital Signs Date Time Temp Pulse Resp B/P (MAP) Pulse Ox O2 Delivery O2 Flow Rate FiO2 01/07/19 04:00 94 Room Air 01/07/19 04:00 36.5 80 20 144/79 (100) 01/06/19 12:10 3 Capillary Refill : Less Than 3 SecondsLess Than 3 Seconds I&O Intake and Output 01/07/19 00:00 Intake Total 1720 ml Output Total 1000 ml Balance 720 ml Intake Oral 720 ml IV Total 1000 ml Output Urine Total 1000 ml Daily Weight Change No General: Alert, Oriented X3, Cooperative, No Acute Distress HEENT: Atraumatic, PERRLA Neck: Supple Lungs: Clear to Auscultation Heart: Regular Rate Abdomen: Normal Bowel Sounds, Soft, No Tenderness Neuro: Cranial Nerves 3-12 NL Psych/Mental Status: Mental Status NL, Mood NL Results Lab Laboratory Tests 01/06/19 09:37: Glucometer 135H 01/06/19 14:50: White Blood Count 5.9, Red Blood Count 4.16L, Hemoglobin 13.1L, Hematocrit 40, Mean Corpuscular Volume 96, Mean Corpuscular Hemoglobin 32, Mean Corpuscular Hemoglobin Concent 33, Red Cell Distribution Width 13.8, Platelet Count 175, Mean Platelet Volume 10.0, Neutrophils (%) (Auto) 66, Lymphocytes (%) (Auto) 24, Monocytes (%) (Auto) 7, Eosinophils (%) (Auto) 3, Basophils (%) (Auto) 1, Neutrophils # (Auto) 3.9, Lymphocytes # (Auto) 1.4, Monocytes # (Auto) 0.4, Eosinophils # (Auto) 0.2, Basophils # (Auto) 0.1, Sodium Level 137, Potassium Level 4.2, Chloride Level 107, Carbon Dioxide Level 24, Anion Gap 6, Blood Urea Nitrogen 24H, Creatinine 1.17, Estimat Glomerular Filtration Rate 59, BUN/Creatinine Ratio 21, Glucose Level 112H, Calcium Level 8.5, Corrected Calciu m 8.7, Magnesium Level 2.0, Total Bilirubin 0.8, Aspartate Amino Transf (AST/SGOT) 18, Alanine Aminotransferase (ALT/SGPT) 25, Alkaline Phosphatase 62, Myoglobin 108.0H, Troponin I < 0.028, Total Protein 6.3L, Albumin 3.7, Thyroid Stimulating Hormone (TSH) 0.66 01/06/19 15:15: Prothrombin Time 13.7, INR Comment 1.0 01/06/19 20:30: Troponin I 0.048H 01/07/19 03:20: Troponin I 0.079H, Triglycerides Level 153H, Cholesterol Level 137, LDL Cholesterol Direct 83, VLDL Cholesterol 31, HDL Cholesterol 41 Assessment/Plan Assessment/Plan Assess & Plan/Chief Complaint CHEST PAIN HYPERTENSION RIGHT CUBITAL TUNNEL SYNDROME - IMMEDIATELY POST-OP CORONARY ARTERY DISEASE HX OF ISCHEMIC CARDIOMYOPATHY PACEMAKER DUE TO BRADYCARDIA CHEST PAIN WITH ELEVATED TROPONIN - PLANNING ON PATIENT HAVING A HEART CATHETERIZATION TOMORROW - DEFER TO DR. KENYON HYPERTENSION - RESTARTED HOME REGIMEN. RIGHT CUBITAL TUNNEL SYNDROME - IMMEDIATELY POST-OP - DEFER TO SURGEON CORONARY ARTERY DISEASE WITH HX OF ISCHEMIC CARDIOMYOPATHY AND HX OF PACEMAKER DUE TO BRADYCARDIA - DEFER TO CARDIOLOGY -AT THIS POINT IN TIME PLANNING ON HEART CA THETERIZATION TOMORROW MORNING. - DISCHARGE WILL DEPEND ON THE HEART CATHETERIZATION RESULTS. Clinical Quality Measures Admission Status Admission Dx CHEST PAIN HYPERTENSION RIGHT CUBITAL TUNNEL SYNDROME - IMMEDIATELY POST-OP CORONARY ARTERY DISEASE HX OF ISCHEMIC CARDIOMYOPATHY PACEMAKER DUE TO BRADYCARDIA DVT/VTE Risk/Contraindication: Risk Factor Score Per Nursin RFS Level Per Nursing on Admit: 2=Moderate MARY HINES MD Jan 07, 2019 08:02
--- NOTE | 2019-01-07 08:15 | NUR ---
CALLED DR. KENYON TO INFORM HIM OF THIS AM'S FURTHER ELEVATED TROPONIN AT 0.079. STATED THAT HE WOULD BE HERE SOON.
[2019-01-07] MEDS: amLODIPine 5 MG (NORVASC) TAB PO SCH (08:31)
[2019-01-07] MEDS: ASPIRIN E.C. 81 MG (ECOTRIN) TAB PO SCH ×2 (08:31→21:07)
[2019-01-07] MEDS: ACETAMINOPHEN 325 MG TABLET PO SCH ×3 (09:22→21:06)
[2019-01-07] MEDS: VITAMIN D3 1,000 UNITS (CHOLECALCIFEROL) TABLET PO SCH (09:22)
[2019-01-07] MEDS: FINASTERIDE (PROSCAR) 5 MG TAB PO SCH (09:22)
[2019-01-07] MEDS: GLIMEPIRIDE 4 MG (AMARYL) TAB PO SCH (09:22)
[2019-01-07] MEDS: LACTOBACILLUS ACIDOPHILUS (PROBIOTIC) CAPSULE PO SCH ×2 (09:23→16:55)
[2019-01-07] MEDS: CYANOCOBALAMIN 1,000 MCG (VITAMIN B-12) TABLET PO SCH (09:23)
[2019-01-07] MEDS: ALLOPURINOL 100 MG (ZYLOPRIM) TAB PO SCH ×2 (09:23→21:07)
[2019-01-07 12:00] VITALS: BP 136/77
--- NOTE | 2019-01-07 13:19 | Progress Note - Cardiology ---
Cardiology SOAP Progress Note Subjective: No significant cp today Denies shortness of breath or palp or syncope Objective: I&O/Vital Signs 01/07/19 01/07/19 01/07/19 01/07/19 04:00 04:00 07:00 08:00 Temp 36.5 36.3 Pulse 80 80 85 Resp 20 18 B/P (MAP) 144/79 (100) 146/83 (104) Pulse Ox 94 94 95 O2 Delivery Room Air Room Air Room Air 01/07/19 01/07/19 01/07/19 01/07/19 08:00 08:40 12:00 12:24 Pulse 80 Pulse Ox 94 93 94 O2 Delivery Room Air Room Air Room Air 01/07/19 00:00 Intake Total 1720 ml Output Total 1000 ml Balance 720 ml Weight (Pounds): 207 Weight (Ounces): 7.0 Weight (Calculated Kilograms): 94.010798 Constitutional: AAO x 3, well-developed, well-nourished Respiratory: No accessory muscle use, No respiratory distress; chest expansion is symmetric, chest is bilaterally symmetric Cardiovascular: regular rate-rhythm; No JVD; S1 and S2 Gastrointestional: No tender; soft, round, audible bowel sounds Extremities: swelling (mild, bilateral leg swelling); No clubbing, No cyanosis Neurologic/Psychiatric: oriented x 3, other (moves all limbs equally), power is 5/5 both on sides Skin: No rash on exposed areas, No ulcerations on exposed areas; other (dressing to right elbow/FA D&I) Results/Procedures: Labs Laboratory Tests 01/06/19 14:50: White Blood Count 5.9, Red Blood Count 4.16L, Hemoglobin 13.1L, Hematocrit 40, Mean Corpuscular Volume 96, Mean Corpuscular Hemoglobin 32, Mean Corpuscular Hemoglobin Concent 33, Red Cell Distribution Width 13.8, Platelet Count 175, Mean Platelet Volume 10.0, Neutrophils (%) (Auto) 66, Lymphocytes (%) (Auto) 24, Monocytes (%) (Auto) 7, Eosinophils (%) (Auto) 3, Basophils (%) (Auto) 1, Neutrophils # (Auto) 3.9, Lymphocytes # (Auto) 1.4, Monocytes # (Auto) 0.4, Eosinophils # (Auto) 0.2, Basophils # (Auto) 0.1, Sodium Level 137, Potassium Level 4.2, Chloride Level 107, Carbon Dioxide Level 24, Anion Gap 6, Blood Urea Nitrogen 24H, Creatinine 1.17, Estimat Glomerular Filtration Rate 59, BUN/Creatinine Ratio 21, Glucose Level 112H, Calcium Level 8.5, Corrected Calcium 8.7, Magnesium Level 2.0, Total Bilirubin 0.8, Aspartate Amino Transf (AST/SGOT) 18, Alanine Aminotransferase (ALT/SGPT) 25, Alkaline Phosphatase 62, Myoglobin 108.0H, Troponin I < 0.028, Total Protein 6.3L, Albumin 3.7, Thyroid Stimulating Hormone (TSH) 0.66 01/06/19 15:15: Prothrombin Time 13.7, INR Comment 1.0 01/06/19 20:30: Troponin I 0.048H 01/07/19 03:20: Troponin I 0.079H, Triglycerides Level 153H, Cholesterol Level 137, LDL Cholesterol Direct 83, VLDL Cholesterol 31, HDL Cholesterol 41 A/P: Assessment: Episode of chest discomfort on 01/06/19. Subsequent minimal troponin elevation is suggested of a small NSTEMI Coronary artery disease and ischemic cardiomyopathy (see below) Cardiac cath of January 01, 2017: 70-80% mid vessel stenosis of fhe LAD to which successful stenting was carried out with a Resolute 2.25 x 22 mm stent deployed at 16 atmospheres with reduction of stenosis to 0%. A more proximal LAD stent is widely patent. A very small caliber first diagonal branch is jailed by the stnet and has 70% ostial stenosis but is not amenable to intervention d/t small vessel size. 50% mid vessel stenosis left cx artery with a FFR of greater than 0.9, indicating hemodynamic insignificance. Patent stents in the prox and mid RCA with proximal stent exhibiting approx 40-50% in stent r estenosis. 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 Mild carotid artery disease per carotid ultrasonography of 07/14/18 Chronic intermittent leg swelling, likely related to venous insufficiency, c urrently controlled Chronic intermittent diarrhea of undetermined etiology, currently stable. Degenerative joint disease. Gastroesophageal reflux. Sleep apnea, being treated with C-PAP therapy. Hypertension, under good control. Gout. Hyperlipidemia being treated with lovastatin. Borderline maturity onset diabetes mellitus. Obesity with a body mass index of approximately 31 Chronic poor balance being followed by Dr. Ashraf. PAD. Scattered atherosclerotic disease of the bilateral lower extremity arterial systems, no hemodynamically significant stenosis per bilateral lower extremity arterial Doppler from 04/30/2012. U/S from 11-24-14 showed no sonographic evidence for hemodynamically significant stenosis or arterial occlusion within either leg. Seg pressures on 05/24/17 WNL Ac renal failure in June 2017. 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 Rationale, procedure, risks, benefits, potential complications, alternatives of cath and possible PCI reviewed. He understands and provides informed consent * I discussed his case with Dr Spaulding this am DEEJAY KENYON MD FACP FAC CCDS Jan 07, 2019 13:19
[2019-01-07] MEDS ORDERED: inSUlin ASPART (NovoLOG) 1 UNIT/0.01 ML (CHARGE PER UNIT) SC SCH (14:30)
[2019-01-07 16:00] VITALS: BP 136/79
[2019-01-07] MEDS: inSUlin ASPART (NovoLOG) 1 UNIT/0.01 ML (CHARGE PER UNIT) SC SCH ×2 (16:18→21:07)
[2019-01-07 20:00] VITALS: BP 135/80
[2019-01-07] MEDS: CLOPIDOGREL 75 MG (PLAVIX) TABLET PO SCH (21:06)
[2019-01-07] MEDS: TAMSULOSIN 0.4 MG (FLOMAX) CAP PO SCH (21:06)
[2019-01-08] VITALS (11 sets, daily range): BP systolic 125–165; BP diastolic 72–85
[2019-01-08] MEDS: inSUlin ASPART (NovoLOG) 1 UNIT/0.01 ML (CHARGE PER UNIT) SC SCH ×4 (05:15→20:58)
[2019-01-08] MEDS: amLODIPine 5 MG (NORVASC) TAB PO SCH (08:23)
[2019-01-08] MEDS: GLIMEPIRIDE 4 MG (AMARYL) TAB PO SCH (08:23)
[2019-01-08] MEDS: FINASTERIDE (PROSCAR) 5 MG TAB PO SCH (08:25)
[2019-01-08] MEDS: CYANOCOBALAMIN 1,000 MCG (VITAMIN B-12) TABLET PO SCH (08:25)
[2019-01-08] MEDS: ACETAMINOPHEN 325 MG TABLET PO SCH ×3 (08:25→20:56)
[2019-01-08] MEDS: ASPIRIN E.C. 81 MG (ECOTRIN) TAB PO SCH (08:25)
[2019-01-08] MEDS: LACTOBACILLUS ACIDOPHILUS (PROBIOTIC) CAPSULE PO SCH ×2 (08:25→18:53)
[2019-01-08] MEDS: VITAMIN D3 1,000 UNITS (CHOLECALCIFEROL) TABLET PO SCH (08:25)
[2019-01-08] MEDS: ALLOPURINOL 100 MG (ZYLOPRIM) TAB PO SCH ×2 (08:25→20:56)
--- NOTE | 2019-01-08 08:53 | Discharge Summary ---
Diagnosis/Chief Complaint Date of Admission Jan 06, 2019 at 13:00 Date of Discharge Discharge Date: Jan 06, 2019 Discharge Time: 1145 Reason Hospital Visit PT IS AN 83 Y/O MALE WHO IS KNOWN TO ME FROM CLINIC. HE HAD A PROCEDURE TODAY WITH DR. GARCIA AND POST-OPERATIVELY ANESTHESIA WAS WAKING UP THE PATIENT, HE STARTED TO COMPLAIN OF CHEST PAIN. ANESTHESIA CALLED CARDIOLOGY WHO CALLED ME TO REPORT THAT HE NEEDED ADMISSION TO THE HOSPITAL TO RULE OUT CHEST PAIN CAUSED BY A CARDIAC EVENT. THE PT REPORTS THAT ABOUT 5 MINUTES AFTER ANESTHESIA WALKED OUT OF HIS ROOM TO CALL THE CLAM BED LABORER, HIS CHEST PAIN RESOLVED AND IT HAS NOT RECURRED. Discharge Summary Discharge Physical Examination Allergies: Coded Allergies: metformin (Verified Adverse Reaction, Mild, Diarrhea, 01/06/19) Vitals & I&Os Vital Signs Date Time Temp Pulse Resp B/P (MAP) Pulse Ox O2 Delivery O2 Flow Rate FiO2 01/08/19 07:44 36.7 80 16 126/72 (90) 94 Room Air 01/06/19 12:10 3 Discharge Instructions to patient/family Please see electronic discharge instructions given to patient. Discharge Medications Reviewed and agree with Discharge Medication list on patient's Discharge Instruction sheet Clinical Quality Measures DVT/VTE Risk/Contraindication: Risk Factor Score Per Nursin RFS Level Per Nursing on Admit: 2=Moderate MARY HINES MD Jan 08, 2019 08:53
[2019-01-08] MEDS ORDERED: NS IV 1000 ML 1,000 ML ONE (11:26)
[2019-01-08] MEDS ORDERED: LIDOCAINE 1% INJ 20 ML 20 ML VIAL ONE (11:26)
[2019-01-08] MEDS ORDERED: HEParin (CATH LAB) 2,000 ML IV ONE (11:26)
[2019-01-08] MEDS ORDERED: MIDAZOLAM 5 MG/5 ML (VERSED) VIAL ONE (12:48)
[2019-01-08] MEDS ORDERED: fentaNYL INJECTION 100 MCG/2 ML AMP ONE (12:48)
--- NOTE | 2019-01-08 13:26 | CARDIAC CATHETERIZATION ---
DATE OF SERVICE: 01/08/2019 CARDIAC CATHETERIZATION REPORT The patient is an 83-year-old man who is known to have coronary artery disease. Following recent orthopedic surgery, he had atypical chest discomfort and troponin was minimally elevated. Cardiac catheterization was carried out today after having obtained an informed consent. DESCRIPTION OF PROCEDURE: He was brought to the cardiac catheterization laboratory in a fasting state. Right groin was prepared and draped in the usual sterile fashion. A 1% lidocaine was used for local anesthesia. Modified Seldinger technique was used to advance a 5-Colombian sheath in right femoral artery, 5-Colombian JR4 catheter for left coronary angiography, 5-Colombian JR4 catheter for right coronary angiography, 5-Colombian pigtail catheter was used for left heart catheterization and left ventricular angiography. Pigtail was removed. Angiography of the right femoral artery was carried out through the sheath. Mynx was used to achieve hemostasis. He tolerated the procedure well. HEMODYNAMICS: Left ventricular end-diastolic pressure following coronary angiography was 9 mmHg. There was no significant pressure gradient on pullback across the aortic valve. Ascending aortic pressure was 119/61 with a mean 81 mmHg. CORONARY ANGIOGRAPHY: Left main coronary artery is free of significant disease. Left anterior descending artery has diffuse calcification and plaque. There are stenoses up to 50% in the proximal, mid and distal portions. There is a widely patent stented segment in the mid left anterior descending. The left circumflex has 50% mid vessel stenosis. There are patent stents in the proximal and mid right coronary artery. The right coronary artery has diffuse moderate plaque and calcification. There is stenosis up to 40% to 50%. LEFT VENTRICULAR ANGIOGRAPHY: Left ventricular angiography was carried out in the right anterior oblique projection. Global left ventricular systolic function is well preserved. Ejection fraction of 50% to 55%. There was mild to moderate catheter-induced mitral regurgitation during one systolic beat, but not during the others. CONCLUSIONS: 1. Diffuse moderate coronary artery disease with extensive coronary calcification and multiple stenoses of up to 50% in the left anterior descending, left circumflex and right coronary arteries. Stents in the mid left anterior descending and in the proximal and distal right coronary are patent and free of significant disease. 2. Normal left ventricular end-diastolic pressure. 3. Well preserved global left ventricular systolic function with ejection fraction of 50% to 55%. DISCUSSION AND RECOMMENDATIONS: Based on results of the study, it appears appropriate to continue a conservative approach. Risk factor modification has been reviewed. Outpatient followup is advised. Job ID: [id number] DocumentID: [id number] Dictated Date: 01/08/2019 13:12:29 [employer] Net Developer Date: 01/08/2019 13:26:02 Dictated By: DEEJAY KENYON MD, MA, FACP, FACC,
[2019-01-08] MEDS ORDERED: NS IV 1000 ML 1,000 ML IV SCH (13:29)
--- NOTE | 2019-01-08 13:29 | Progress Note - Cardiology ---
Cardiology SOAP Progress Note Subjective: No new symptoms Chronic exertional shortness of breath No cp or palp or syncope Objective: I&O/Vital Signs 01/08/19 01/08/19 01/08/19 01/08/19 04:00 04:34 07:00 07:44 Temp 36.8 36.7 Pulse 84 80 80 Resp 18 16 B/P (MAP) 137/83 (101) 126/72 (90) Pulse Ox 94 94 O2 Delivery Room Air Room Air Room Air 01/08/19 01/08/19 01/08/19 08:00 09:00 12:00 Temp 36.5 Pulse 79 Resp 20 B/P (MAP) 125/75 (92) Pulse Ox 93 O2 Delivery Room Air Room Air Room Air 01/07/19 23:59 Intake Total 650 ml Output Total 600 ml Balance 50 ml Weight (Pounds): 207 Weight (Ounces): 7.0 Weight (Calculated Kilograms): 94.527229 Constitutional: AAO x 3, well-developed, well-nourished Respiratory: No accessory muscle use, No respiratory distress; chest expansion is symmetric, chest is bilaterally symmetric Cardiovascular: regular rate-rhythm; No JVD; S1 and S2 Gastrointestional: No tender; soft, round, audible bowel sounds Extremities: swelling (mild, bilateral leg swelling); No clubbing, No cyanosis Neurologic/Psychiatric: oriented x 3, other (moves all limbs equally), power is 5/5 both on sides Skin: No rash on exposed areas, No ulcerations on exposed areas; other (dressing to right elbow/FA D&I) Results/Procedures: Labs Laboratory Tests 01/08/19 11:05: Glucometer 122H Microbiology 01/06/19 MRSA Screen - Final, Complete MRSA not isolated Laboratory Tests 01/06/19 14:50 A/P: Assessment: Episode of chest discomfort on 01/06/19. Subsequent minimal troponin elevation, probably type 2 CO (based on card cath results noted belos) Cardiac cath of January 08, 2019: Diffuse moderate coronary plaque and clacification. Patent stented midvessel segment in LAD. 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 Mild carotid artery disease per carotid ultrasonography of 07/14/18 Chronic intermittent leg swelling, likely related to venous insufficiency, currently controlled Chronic intermittent diarrhea of undetermined etiology, currently stable. Degenerative joint disease. Gastroesophageal reflux. Sleep apnea, being treated with C-PAP therapy. Hypertension, under good control. Gout. Hyperlipidemia being treated with lovastatin. Borderline maturity onset diabetes mellitus. Obesity with a body mass index of approximately 31 Chronic poor balance being followed by Dr. Ashraf. PAD. Scattered atherosclerotic disease of the bilateral lower extremity arterial systems, no hemodynamically significant stenosis per bilateral lower extremity arterial Doppler from 04/30/2012. U/S from 11-24-14 showed no sonographic evidence for hemodynamically significant stenosis or arterial occlusion within either leg. Seg pressures on 05/24/17 WNL Ac renal failure in June 2017. 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
[2019-01-08] MEDS ORDERED: PATIENT MAY USE OWN MEDS, ALL PO SCH (13:30)
[2019-01-08] MEDS: CLOPIDOGREL 75 MG (PLAVIX) TABLET PO SCH (20:56)
[2019-01-08] MEDS: TAMSULOSIN 0.4 MG (FLOMAX) CAP PO SCH (20:56)
[2019-01-09] VITALS: BP 160/81
[2019-01-09 04:00] VITALS: BP 160/81
[2019-01-09] MEDS: inSUlin ASPART (NovoLOG) 1 UNIT/0.01 ML (CHARGE PER UNIT) SC SCH (06:34)
[2019-01-09] MEDS: CYANOCOBALAMIN 1,000 MCG (VITAMIN B-12) TABLET PO SCH (06:35)
[2019-01-09] MEDS: FINASTERIDE (PROSCAR) 5 MG TAB PO SCH (06:35)
[2019-01-09] MEDS: VITAMIN D3 1,000 UNITS (CHOLECALCIFEROL) TABLET PO SCH (06:35)
[2019-01-09] MEDS: GLIMEPIRIDE 4 MG (AMARYL) TAB PO SCH (06:35)
[2019-01-09] MEDS: ALLOPURINOL 100 MG (ZYLOPRIM) TAB PO SCH (06:35)
[2019-01-09] MEDS: LACTOBACILLUS ACIDOPHILUS (PROBIOTIC) CAPSULE PO SCH (06:35)
[2019-01-09] MEDS: amLODIPine 5 MG (NORVASC) TAB PO SCH (06:37)
[2019-01-09 08:30] VITALS: BP 104/68
[2019-01-09] MEDS: ACETAMINOPHEN 325 MG TABLET PO SCH (08:53)
[2019-01-09] MEDS: ASPIRIN E.C. 81 MG (ECOTRIN) TAB PO SCH (08:53)
--- NOTE | 2019-01-09 14:25 | Progress Note - Cardiology ---
Cardiology SOAP Progress Note Subjective: No cp or palp or syncope or shortness of breath or groin / leg discomfort Objective: I&O/Vital Signs 01/09/19 01/09/19 01/09/19 01/09/19 04:00 04:00 07:00 08:00 Temp 37.3 Pulse 82 90 Resp 20 B/P (MAP) 160/81 (107) Pulse Ox 95 O2 Delivery Room Air Room Air 01/09/19 01/09/19 01/09/19 08:00 08:30 09:10 Temp 37.0 Pulse 86 Resp 18 B/P (MAP) 104/68 (80) Pulse Ox 93 O2 Delivery Room Air 01/09/19 00:00 Intake Total 500 ml Output Total 875 ml Balance -375 ml Weight (Pounds): 207 Weight (Ounces): 7.0 Weight (Calculated Kilograms): 94.685832 Constitutional: AAO x 3, well-developed, well-nourished Respiratory: No accessory muscle use, No respiratory distress; chest expansion is symmetric, chest is bilaterally symmetric Cardiovascular: regular rate-rhythm; No JVD; S1 and S2 Gastrointestional: No tender; soft, round, audible bowel sounds Extremities: swelling (mild, bilateral leg swelling); No clubbing, No cyanosis Neurologic/Psychiatric: oriented x 3, other (moves all limbs equally), power is 5/5 both on sides Skin: No rash on exposed areas, No ulcerations on exposed areas; other (dressing to right elbow/FA D&I) Results/Procedures: Labs Laboratory Tests 01/08/19 15:28: Glucometer 88 01/08/19 20:58: Glucometer 160H 01/09/19 06:33: Glucometer 122H Microbiology 01/06/19 MRSA Screen - Final, Complete MRSA not isolated A/P: Assessment: Episode of chest discomfort on 01/06/19. Subsequent minimal troponin elevation, probably type 2 DC (based on card cath results noted below) Cardiac cath of January 08, 2019: Diffuse moderate coronary plaque and clacification. Patent stented midvessel segment in LAD. 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 Mild carotid artery disease per carotid ultrasonography of 07/14/18 Chronic intermittent leg swelling, likely related to venous insufficiency, currently controlled Chronic intermittent diarrhea of undetermined etiology, currently stable. Degenerative joint disease. Gastroesophageal reflux. Sleep apnea, being treated with C-PAP therapy. Hypertension, under good control. Gout. Hyperlipidemia being treated with lovastatin. Borderline maturity onset diabetes mellitus. Obesity with a body mass index of approximately 31 Chronic poor balance being followed by Dr. Ashraf. PAD. Scattered atherosclerotic disease of the bilateral lower extremity arterial systems, no hemodynamically significant stenosis per bilateral lower extremity arterial Doppler from 04/30/2012. U/S from 11-24-14 showed no sonographic evidence for hemodynamically significant stenosis or arterial occlusion within either leg. Seg pressures on 05/24/17 WNL Ac renal failure in June 2017. 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 Based on these, it appears reasonable to continue a conservative approach * Continue current regimen * Outpt f/u advised DEEJAY KENYON MD FACP FAC CCDS Jan 09, 2019 14:25
== END 2019-01-09 09:10 | disposition home or self-care (01) | DRG 988 ==
LOC: SDC 09:18 → CSD 13:00 → UNDOADMIN 13:00 → CSD 13:40 → OBSVTOIN 01-07 10:33 → UNDODISIN 01-09 09:10
PROVIDERS: ADMIT Family Medicine; ATTEND Internal Medicine Cardiovascular Disease
PROC: 01N40ZZ Release Ulnar Nerve, Open Approach (ICD-10-PCS; principal; 2019-01-06 10:07)
PROC: 4A023N7 Measurement of Cardiac Sampling and Pressure, Left Heart, Percutaneous Approach (ICD-10-PCS; 2019-01-08)
PROC: B2111ZZ Fluoroscopy of Multiple Coronary Arteries using Low Osmolar Contrast (ICD-10-PCS; 2019-01-08)
PROC: B2151ZZ Fluoroscopy of Left Heart using Low Osmolar Contrast (ICD-10-PCS; 2019-01-08)
PROC: B41FZZZ Fluoroscopy of Right Lower Extremity Arteries (ICD-10-PCS; 2019-01-08)
DX: I21.A1 Myocardial infarction type 2 (principal); I25.10 Atherosclerotic heart disease of native coronary artery without angina pectoris; I25.5 Ischemic cardiomyopathy; G56.21 Lesion of ulnar nerve, right upper limb; T82.855A Stenosis of coronary artery stent, initial encounter; I87.2 Venous insufficiency (chronic) (peripheral); I12.9 Hypertensive chronic kidney disease with stage 1 through stage 4 chronic kidney disease, or unspecified chronic kidney disease; Z66 Do not resuscitate; I70.203 Unspecified atherosclerosis of native arteries of extremities, bilateral legs; E11.21 Type 2 diabetes mellitus with diabetic nephropathy; N18.3 Chronic kidney disease, stage 3 (moderate); E78.00 Pure hypercholesterolemia, unspecified; E11.40 Type 2 diabetes mellitus with diabetic neuropathy, unspecified; M19.041 Primary osteoarthritis, right hand; M19.042 Primary osteoarthritis, left hand; M21.371 Foot drop, right foot; M21.372 Foot drop, left foot; M10.9 Gout, unspecified; E66.9 Obesity, unspecified; K21.9 Gastro-esophageal reflux disease without esophagitis; K58.0 Irritable bowel syndrome with diarrhea; G47.33 Obstructive sleep apnea (adult) (pediatric); I48.0 Paroxysmal atrial fibrillation; E78.5 Hyperlipidemia, unspecified; Z86.73 Personal history of transient ischemic attack (TIA), and cerebral infarction without residual deficits; Z95.0 Presence of cardiac pacemaker; Z95.5 Presence of coronary angioplasty implant and graft; Z87.891 Personal history of nicotine dependence; Z79.84 Long term (current) use of oral hypoglycemic drugs; Z68.32 Body mass index [BMI] 32.0-32.9, adult
CPT/HCPCS: 36415; 71045; 80053; 80061; 82962; 83735; 83874; 84443; 84484; 85025; 85027; 85610; 87081; 93005; 93458

== ENCOUNTER → 2020-07-06 | Outpatient (CLI) | payer MEDICARE, OTHER ==
[~2020-07-06] MED LIST changes: +AMLO-250 PO; -AMLO5TAB9 PO; +ASPI-1238 PO; -ASPI-983 PO; +GLIM2TAB4 PO; -GLIM4TAB PO; +GLIM4TAB5 PO; +HYDR-4227 PO; +IRBE150T23 PO; -IRBE150T26 PO; -MECL-106 PO; +MECL-149 PO; -PANT40TA3 PO; +PANT40TA52 PO; -TAMS0.4C98 PO; +TMSL.4C PO
[2020-07-06 17:26] LABS: BASOPHILS # (AUTO) 0.1 10^3/uL (0.0-0.1); BASOPHILS % (AUTO) 1 % (0-10); EOSINOPHILS # (AUTO) 0.3 10^3/uL (0.0-0.3); EOSINOPHILS % (AUTO) 3 % (0-10); HEMATOCRIT 45 % (40-54); HEMOGLOBIN 14.5 g/dL (13.3-17.7); LYMPHOCYTES # (AUTO) 1.7 10^3/uL (1.0-4.0); LYMPHOCYTES % (AUTO) 17 % (12-44); MEAN CORPUSCULAR HEMOGLOBIN 32 pg (25-34); MEAN CORPUSCULAR HGB CONC 33 g/dL (32-36); MEAN CORPUSCULAR VOLUME 98 fL (80-99); MEAN PLATELET VOLUME 10.2 fL (9.0-12.2); MONOCYTES # (AUTO) 0.7 10^3/uL (0.0-1.0); MONOCYTES % (AUTO) 7 % (0-12); NEUTROPHILS # (AUTO) 7.2 10^3/uL (1.8-7.8); NEUTROPHILS % (AUTO) 72 % (42-75); PLATELET COUNT 217 10^3/uL (130-400)
--- NOTE | 2020-07-06 17:35 | Diagnostic Imaging Report ---
EXAMINATION: Chest 2 view. HISTORY: Chest pain. COMPARISON: 01/06/2019. FINDINGS: Stable left pectoral dual-chamber pacemaker. Stable elevated right hemidiaphragm. Small amount of bibasilar atelectasis is present. No focal consolidation is seen. No large pleural effusion or pneumothorax is seen. The cardiomediastinal silhouette is prominent. No acute osseous abnormality is seen. IMPRESSION: 1. Bibasilar atelectasis. No focal consolidation. No large pleural effusion. 2. Cardiomegaly. No overt pulmonary edema. Results were called to MITRA Anders at 5:32 p.m., by seth. Dictated by: Dictated on workstation # [id number]
[2020-07-06 17:39] LABS: ALBUMIN 3.9 GM/DL (3.2-4.5); CHLORIDE 104 MMOL/L (98-107); POTASSIUM 4.1 MMOL/L (3.6-5.0); SODIUM 135 MMOL/L (135-145)
[2020-07-06 17:41] LABS: GLUCOSE 196 MG/DL (70-105); TOTAL PROTEIN 7.2 GM/DL (6.4-8.2)
[2020-07-06 17:42] LABS: CARBON DIOXIDE 19 MMOL/L (21-32)
[2020-07-06 17:43] LABS: BILIRUBIN,TOTAL 0.6 MG/DL (0.1-1.0)
[2020-07-06 17:45] LABS: ALKALINE PHOSPHATASE 82 U/L (40-136); CREATININE SERUM 1.42 MG/DL (0.60-1.30); GFR ESTIMATED 47
[2020-07-06 17:46] LABS: BUN/CREATININE RATIO 25
[2020-07-06 17:48] LABS: ALANINE AMINOTRANSFERASE 20 U/L (0-55)
== END ==
LOC: RT 16:18
PROVIDERS: ATTEND Nurse Practitioner Family
DX: J98.11 Atelectasis (principal); I51.7 Cardiomegaly
CPT/HCPCS: 36415; 71046; 80053; 84484; 85025; 93005

== ENCOUNTER → 2021-02-07 | Outpatient (CLI) | payer MEDICARE, OTHER | LOC: CARD 14:30 | PROVIDERS: ATTEND Nurse Practitioner Family | DX: R06.00 Dyspnea, unspecified (principal) | CPT/HCPCS: 93306 ==

== ENCOUNTER → 2021-12-04 | Outpatient (CLI) | payer MEDICARE, OTHER ==
--- NOTE | 2021-12-04 20:13 | Diagnostic Imaging Report ---
CLINICAL INDICATION: Patient with right ankle pain. Patient has history of surgery. EXAM: X-ray of the right ankle, 3 views. COMPARISON: X-ray of the right ankle dated 09/19/2017. FINDINGS: Again seen sideplate and screws affixing the distal fibula and bone anchor within the medial malleolar region. Osteopenia is again seen which limits evaluation of bony detail. There is no evidence of acute fracture or dislocation. Vascular calcifications are seen. There is soft tissue swelling involving the left lower extremity. There are degenerative spurs involving the tibial talar joint. There is degenerative spurring of the mid foot dorsally. IMPRESSION: 1: There is no gross acute fracture or dislocation. There is diffuse osteopenia which limits evaluation of the anatomical detail. 2: There is soft tissue swelling about the ankle. 3: There is degenerative disease of the right ankle. Dictated by: Dictated on workstation # [id number]
== END ==
LOC: RAD 11:49
PROVIDERS: ATTEND Nurse Practitioner Family
DX: M85.871 Other specified disorders of bone density and structure, right ankle and foot (principal); M19.071 Primary osteoarthritis, right ankle and foot
CPT/HCPCS: 73610

== ENCOUNTER → 2022-08-07 | Outpatient (CLI) | payer MEDICARE, OTHER ==
[~2022-08-07] MED LIST changes: +CLOP-31 PO; -CLOP75TA69 PO
[2022-08-07 10:20] LABS: BASOPHILS # (AUTO) 0.1 10^3/uL (0.0-0.1); BASOPHILS % (AUTO) 1 % (0-10); EOSINOPHILS # (AUTO) 0.4 10^3/uL (0.0-0.3); EOSINOPHILS % (AUTO) 4 % (0-10); HEMATOCRIT 37 % (40-54); HEMOGLOBIN 12.3 g/dL (13.3-17.7); LYMPHOCYTES # (AUTO) 1.6 10^3/uL (1.0-4.0); LYMPHOCYTES % (AUTO) 13 % (12-44); MEAN CORPUSCULAR HEMOGLOBIN 32 pg (25-34); MEAN CORPUSCULAR HGB CONC 34 g/dL (32-36); MEAN CORPUSCULAR VOLUME 94 fL (80-99); MEAN PLATELET VOLUME 9.7 fL (9.0-12.2); MONOCYTES # (AUTO) 0.8 10^3/uL (0.0-1.0); MONOCYTES % (AUTO) 7 % (0-12); NEUTROPHILS # (AUTO) 8.9 10^3/uL (1.8-7.8); NEUTROPHILS % (AUTO) 75 % (42-75); PLATELET COUNT 274 10^3/uL (130-400); WHITE BLOOD COUNT 11.8 10^3/uL (4.3-11.0)
[2022-08-07 10:36] LABS: ERYTHROCYTE SEDIMENTATION RATE 25 MM/HR (0-30)
[2022-08-07 10:38] LABS: ALBUMIN 3.9 GM/DL (3.2-4.5); BILIRUBIN,TOTAL 0.7 MG/DL (0.1-1.0); CALCIUM 9.3 MG/DL (8.5-10.1); CREATININE SERUM 1.55 MG/DL (0.60-1.30); POTASSIUM 3.8 MMOL/L (3.6-5.0); TOTAL PROTEIN 7.2 GM/DL (6.4-8.2)
--- NOTE | 2022-08-07 13:29 | Diagnostic Imaging Report ---
HISTORY: Diabetic foot ulcer. Osteomyelitis. COMPARISON: 04/06/2014. TECHNIQUE: Three views of the left foot. FINDINGS: Bone density is diffusely low. Evaluation is somewhat suboptimal due to the low bone density and overlying clothing hyperdensities. There is calcific atherosclerosis. There appears to be an ulceration at the tip of the left great toe. No cortical erosion or periosteal reaction is seen. Mild degenerative changes are seen about the left foot, in particular the midfoot and 1st MTP joint. There is moderate deep soft tissue edema. IMPRESSION: No radiographic findings of osteomyelitis. If there is persistent clinical concern, consider MRI to further evaluate. Dictated by: Dictated on workstation # [id number]
== END ==
LOC: WOUNDCARE 09:02
PROVIDERS: ATTEND Family Medicine
DX: E11.621 Type 2 diabetes mellitus with foot ulcer (principal); L97.522 Non-pressure chronic ulcer of other part of left foot with fat layer exposed; E11.40 Type 2 diabetes mellitus with diabetic neuropathy, unspecified; E11.65 Type 2 diabetes mellitus with hyperglycemia; I70.245 Atherosclerosis of native arteries of left leg with ulceration of other part of foot; N18.30 Chronic kidney disease, stage 3 unspecified; D51.8 Other vitamin B12 deficiency anemias; E55.9 Vitamin D deficiency, unspecified; E66.01 Morbid (severe) obesity due to excess calories; Z68.33 Body mass index [BMI] 33.0-33.9, adult; I89.0 Lymphedema, not elsewhere classified; E11.52 Type 2 diabetes mellitus with diabetic peripheral angiopathy with gangrene
CPT/HCPCS: 11042; 73630; 80053; 82607; 83036; 85025; 85652; 86141; 87070; 87205; G0463; 36415; 87077

== ENCOUNTER → 2022-08-14 | Outpatient (CLI) | payer MEDICARE, OTHER | LOC: WOUNDCARE 09:58 | PROVIDERS: ATTEND Family Medicine | DX: E11.621 Type 2 diabetes mellitus with foot ulcer (principal); L97.522 Non-pressure chronic ulcer of other part of left foot with fat layer exposed; E11.65 Type 2 diabetes mellitus with hyperglycemia; E11.40 Type 2 diabetes mellitus with diabetic neuropathy, unspecified; E11.52 Type 2 diabetes mellitus with diabetic peripheral angiopathy with gangrene; E11.22 Type 2 diabetes mellitus with diabetic chronic kidney disease; N18.32 Chronic kidney disease, stage 3b; I70.248 Atherosclerosis of native arteries of left leg with ulceration of other part of lower leg; D51.8 Other vitamin B12 deficiency anemias; E55.9 Vitamin D deficiency, unspecified; E66.01 Morbid (severe) obesity due to excess calories; I89.0 Lymphedema, not elsewhere classified; Z68.33 Body mass index [BMI] 33.0-33.9, adult | CPT/HCPCS: 11042; G0463 ==

== ENCOUNTER 2022-08-21 10:10 | Observation (INO) | payer MEDICARE, OTHER ==
[~2022-08-21] VITALS: Ht 172.7 cm; Wt 101.6 kg
[2022-08-21 10:33] LABS: BASOPHILS # (AUTO) 0.1 10^3/uL (0.0-0.1); BASOPHILS % (AUTO) 1 % (0-10); EOSINOPHILS # (AUTO) 0.4 10^3/uL (0.0-0.3); EOSINOPHILS % (AUTO) 5 % (0-10); HEMATOCRIT 37 % (40-54); HEMOGLOBIN 12.1 g/dL (13.3-17.7); LYMPHOCYTES # (AUTO) 2.2 10^3/uL (1.0-4.0); LYMPHOCYTES % (AUTO) 25 % (12-44); MEAN CORPUSCULAR HEMOGLOBIN 31 pg (25-34); MEAN CORPUSCULAR HGB CONC 33 g/dL (32-36); MEAN CORPUSCULAR VOLUME 95 fL (80-99); MEAN PLATELET VOLUME 9.9 fL (9.0-12.2); MONOCYTES # (AUTO) 0.5 10^3/uL (0.0-1.0); MONOCYTES % (AUTO) 6 % (0-12); NEUTROPHILS # (AUTO) 5.3 10^3/uL (1.8-7.8); NEUTROPHILS % (AUTO) 63 % (42-75); PLATELET COUNT 277 10^3/uL (130-400); WHITE BLOOD COUNT 8.6 10^3/uL (4.3-11.0)
--- NOTE | 2022-08-21 10:35 | ED General ---
General Chief Complaint: General Problems/Pain Stated Complaint: ARM SPASMS Source of Information: Patient Exam Limitations: No Limitations History of Present Illness Date Seen by Provider: August 21, 2022 Time Seen by Provider: 10:24 Initial Comments 87-year-old male presents the emergency department today for "chest and arm spasms." This is causing a "catch in my breathing." He was noted initially by correction staff at about 9 AM. His son is at bedside and tells me about 5 years ago he had kidney failure that ultimately required him to have a pacemaker due to bradycardia and he had similar symptoms at that time. He recently had his pacemaker interrogated and he was noted to have some "fibrillation episode s." It was recommended he be started on Eliquis however the nursing facility has not yet received the order. He denies any exertional symptoms. No shortness of breath. No abdominal pain or changes in bowel or bladder habits. All other systems reviewed and negative except documented per HPI. Voice recognition software was used to help create this chart Allergies and Home Medications Allergies Coded Allergies: metformin (Verified Adverse Reaction, Mild, Diarrhea, 08/21/22) Patient Home Medication List Home Medication List Reviewed: Yes Acetaminophen (Tylenol) 325 Mg Tablet, 325 MG PO Q6H PRN for PAIN-MILD (1-4), (Reported) Entered as Reported by: CHONG BANUELOS on 07/09/17 0907 Last Action: Held Acetaminophen (Tylenol) 325 Mg Tablet, 325 MG PO QID, (Reported) Entered as Reported by: MANJU REINOSO on 08/21/22 1602 Last Action: Continued Allopurinol (Allopurinol) 100 Mg Tablet, 100 MG PO BID, (Reported) Entered as Reported by: ELEANOR HILL on 01/01/17 1654 Last Action: Continued Amlodipine Besylate (Amlodipine Besylate) 5 Mg Tablet, 5 MG PO BID, (Reported) Entered as Reported by: CHONG BANUELOS on 08/21/18 1256 Last Action: Continued Amoxicillin/Potassium Clav (Amox Tr-K Clv 875-125 mg Tab) 875 Mg-125 Mg Tablet, 1 EA PO BID, (Reported) Entered as Reported by: MANJU REINOSO on 08/21/22 1602 Last Action: Continued Aspirin (Aspirin EC) 81 Mg Tablet.dr, 81 MG PO DAILY, (Reported) Entered as Reported by: ELEANOR HILL on 01/01/171653 Last Action: Continued Cetirizine HCl (Cetirizine HCl) 10 Mg Tablet, 10 MG PO DAILY, (Reported) Entered as Reported by: MANJU REINOSO on 08/21/221601 Last Action: Converted Cholecalciferol (Vitamin D3) (Vitamin D3) 25 Mcg (1000 Unit) Tablet, 25 MCG PO DAILY, (Reported) Entered as Reported by: MANJU REINOSO on 08/21/221601 Last Action: Continued Clopidogrel Bisulfate (Clopidogrel) 75 Mg Tablet, 75 MG PO DAILY, (Reported) Entered as Reported by: CHONG BANUELOS on 07/09/17 0907 Last Action: Continued Cyanocobalamin (Vitamin B-12) (Vitamin B-12) 1,000 Mcg Tablet, 1,000 MCG PO DAILY, (Reported) Entered as Reported by: MANJU REINOSO on 08/21/221601 Last Action: Continued Escitalopram Oxalate (Escitalopram Oxalate) 5 Mg Tablet, 5 MG PO HS, (Reported) Entered as Reported by: MANJU REINOSO on 08/21/221601 Last Action: Converted Famotidine (Famotidine) 20 Mg Tablet, 20 MG PO DAILY, (Reported) Entered as Reported by: MANJU REINOSO on 08/21/221601 Last Action: Continued Finasteride (Finasteride) 5 Mg Tablet, 5 MG PO DAILY, (Reported) Entered as Reported by: BRIAN FLETCHER on 01/01/17 1008 Last Action: Continued Furosemide (Furosemide) 20 Mg Tablet, 20 MG PO DAILY, (Reported) Entered as Reported by: MANJU REINOSO on 08/21/221601 Last Action: Continued Gabapentin (Gabapentin) 100 Mg Capsule, 200 MG PO HS, (Reported) Entered as Reported by: MANJU REINOSO on 08/21/221601 Last Action: Continued Glimepiride (Glimepiride) 4 Mg Tablet, 4 MG PO DAILY, (Reported) Entered as Reported by: ELEANOR HILL on 01/01/171653 Last Action: Converted Guaifenesin (Mucinex) 600 Mg Tab.er.12h, 600 MG PO Q12H PRN for COUGH, (Reported) Entered as Reported by: MANJU REINOSO on 08/21/221601 Last Action: Continued Guaifenesin (Guaifenesin) 100 Mg/5 Ml Liquid, 5 ML PO Q4H PRN for COUGH, (Reported) Entered as Reported by: MANJU REINOSO on 08/21/221601 Last Action: Continued Insulin Glargine,Hum.rec.anlog (Lantus Solostar) 100 Unit/Ml (3 Ml) Insuln.pen, 17 UNITS SC HS, (Reported) Entered as Reported by: MANJU REINOSO on 08/21/221601 Last Action: Converted Lactobacillus Acidophilus (Acidophilus) 1 Each Capsule, 1 EACH PO BID, (Reported) Entered as Reported by: MANJU REINOSO on 08/21/221601 Last Action: Converted Loperamide HCl (Imodium A-D) 2 Mg Capsule, 2-4 MG PO UD PRN for DIARRHEA, (Reported) Entered as Reported by: MANJU REINOSO on 08/21/221601 Last Action: Continued Losartan Potassium (Losartan Potassium) 25 Mg Tablet, 25 MG PO DAILY, (Reported) Entered as Reported by: MANJU REINOSO on 08/21/221601 Last Action: Continued Menthol (Cough Drops) 5.8 Mg Lozenge, 5.8 MG MM EVERY 2 HOURS PRN for COUGH, (Reported) Entered as Reported by: MANJU REINOSO on 08/21/221601 Last Action: Converted Nystatin (Nystatin) 100,000 Unit/Gram Cream..g., 1 APPLIC TOP QID, (Reported) Entered as Reported by: MANJU REINOSO on 08/21/221601 Last Action: Continued Polyethylene Glycol 3350 (Miralax) 17 Gram Powd.pack, 8.5 GM PO DAILY PRN for CONSTIPATION-2ND LINE, (Reported) Entered as Reported by: MANJU REINOSO on 08/21/221601 Last Action: Continued Tamsulosin HCl (Flomax) 0.4 Mg Cap, 0.4 MG PO DAILY, (Reported) Entered as Reported by: CHONG BANUELOS on 08/21/18 1256 Last Action: Continued Timolol Maleate (Timolol Maleate 0.5%) 0.5 % Drops, 1 APPLIC TOP Q48H, (Reported) Entered as Reported by: MANJU REINOSO on 08/21/22 1602 Last Action: Continued Discontinued Medications Cholecalciferol (Vitamin D3) (Vitamin D3) 1,000 Unit Capsule, 1,000 UNIT PO 0700, (Reported) Discontinued Reason: No Longer Taking Entered as Reported by: CHONG BANUELOS on 08/21/18 1256 Last Action: Discontinued Cyanocobalamin (Vitamin B-12) (Vitamin B-12) 1,000 Mcg Tablet, 1,000 MCG PO 0700, (Reported) Discontinued Reason: No Longer Taking Entered as Reported by: COHNG BANUELOS on 08/21/18 1256 Last Action: Discontinued Hydrocodone/Acetaminophen ([place] 7.5-325 Tablet) 1 Each Tablet, 1 TAB PO Q4H Discontinued Reason: No Longer Taking Prescribed by: KAMAR SWIFT on 01/06/19 1021 Last Action: Discontinued L. Acidophilus/Bulgaricus (Floranex Tablet) 1 Each Tablet, 1 TAB PO BID, (Reported) Discontinued Reason: No Longer Taking Entered as Reported by: VIN RASMUSSEN on 12/31/18 0946 Last Action: Discontinued Review of Systems Review of Systems Constitutional: see HPI Past Tldejyj-Rwzata-Avmlef Hx Patient Social History Tobacco Use?: No Use of E-Cig and/or Vaping dev: No Substance use?: No Alcohol Use?: No Immunizations Up To Date Tetanus Booster (TDap): Unknown Seasonal Allergies Seasonal Allergies: No Past Medical History Surgeries: Yes (R foot screw, ) Appendectomy, Coronary Stent, Gallbladder, Orthopedic, Pacemaker, Tonsillectomy Respiratory: Yes Sleep Apnea Currently Using CPAP: Yes Cardiac: Yes (pacemaker) Coronary Artery Disease, High Cholesterol, Hypertension, Irregular Heartbeat Neurological: Yes Neuropathy Reproductive Disorders: No Genitourinary: Yes (urinary retention) Kidney Stones Gastrointestinal: Yes Irritable Bowel Musculoskeletal: Yes (SCREWS PLACED IN RIGHT ANKLE > 15 YRS AGO) Arthritis, Foot Drop, Gout Endocrine: Yes Diabetes, Non-Insulin dep HEENT: Yes Cataract Loss of Vision: Denies Hearing Impairment: Hard of Hearing Cancer: No Psychosocial: No Integumentary: No Blood Disorders: No Family Medical History Reviewed Nursing Family Hx Patient reports no known family medical history. No Pertinent Family Hx, Hypertension Physical Exam Vital Signs Vital Signs - First Documented 08/21/22 10:26 Temp 36.5 Pulse 96 Resp 18 B/P (MAP) 165/97 (119) Pulse Ox 95 Capillary Refill : Height, Weight, BMI Height: 5'9.00" Weight: 207lbs. 7.0oz. 94.778842un; 31.07 BMI Method:Stated General Appearance: No Apparent Distress, WD/WN HEENT: Normal ENT Inspection, Pharynx Normal Neck: Full Range of Motion, Normal Inspection, Non Tender, Supple Respiratory: Chest Non Tender, Lungs Clear, Normal Breath Sounds, No Accessory Muscle Use, No Respiratory Distress, Other (Occasional interruption with resp iration causing him to take another deep breath.) Cardiovascular: Regular Rate, Rhythm, No Murmur, Other (Pacemaker left chest wall) Gastrointestinal: Normal Bowel Sounds, Non Tender, Soft Extremity: Normal Capillary Refill, Normal Inspection, Normal Range of Motion, Non Tender, No Calf Tenderness Neurologic/Psychiatric: Alert, Oriented x3, Normal Mood/Affect Skin: Normal Color, Warm/Dry Progress/Results/Core Measures Suspected Sepsis SIRS Temperature: Pulse: Respiratory Rate: Laboratory Tests 08/21/22 10:19: White Blood Count 8.6 Blood Pressure / Mean: Laboratory Tests 08/21/22 10:19: Creatinine 1.48H, Platelet Count 277, Total Bilirubin 0.5 Results/Orders Lab Results Laboratory Tests Test 08/21/22 10:19 Range/Units White Blood Count 8.6 4.3-11.0 10^3/uL Red Blood Count 3.86 L 4.30-5.52 10^6/uL Hemoglobin 12.1 L 13.3-17.7 g/dL Hematocrit 37 L 40-54 % Mean Corpuscular Volume 95 80-99 fL Mean Corpuscular Hemoglobin 31 25-34 pg Mean Corpuscular Hemoglobin Concent 33 32-36 g/dL Red Cell Distribution Width 13.6 10.0-14.5 % Platelet Count 277 130-400 10^3/uL Mean Platelet Volume 9.9 9.0-12.2 fL Immature Granulocyte % (Auto) 1 % Neutrophils (%) (Auto) 63 42-75 % Lymphocytes (%) (Auto) 25 12-44 % Monocytes (%) (Auto) 6 0-12 % Eosinophils (%) (Auto) 5 0-10 % Basophils (%) (Auto) 1 0-10 % Neutrophils # (Auto) 5.3 1.8-7.8 10^3/uL Lymphocytes # (Auto) 2.2 1.0-4.0 10^3/uL Monocytes # (Auto) 0.5 0.0-1.0 10^3/uL Eosinophils # (Auto) 0.4 H 0.0-0.3 10^3/uL Basophils # (Auto) 0.1 0.0-0.1 10^3/uL Immature Granulocyte # (Auto) 0.1 0.0-0.1 10^3/uL Sodium Level 140 135-145 MMOL/L Potassium Level 4.3 3.6-5.0 MMOL/L Chloride Level 107 98-107 MMOL/L Carbon Dioxide Level 21 21-32 MMOL/L Anion Gap 12 5-14 MMOL/L Blood Urea Nitrogen 31 H 7-18 MG/DL Creatinine 1.48 H 0.60-1.30 MG/DL Estimat Glomerular Filtration Rate 45 BUN/Creatinine Ratio 21 Glucose Level 119 H 70-105 MG/DL Calcium Level 9.2 8.5-10.1 MG/DL Corrected Calcium 9.4 8.5-10.1 MG/DL Total Bilirubin 0.5 0.1-1.0 MG/DL Aspartate Amino Transf (AST/SGOT) 20 5-34 U/L Alanine Aminotransferase (ALT/SGPT) 17 0-55 U/L Alkaline Phosphatase 58 40-136 U/L Troponin I 0.082 H <0.028 NG/ML Total Protein 7.2 6.4-8.2 GM/DL Albumin 3.7 3.2-4.5 GM/DL Thyroid Stimulating Hormone (TSH) 0.66 0.35-4.94 UIU/ML My Orders Orders - SANDRO KRAUS DO Ekg Tracing (08/21/22 10:15) Comprehensive Metabolic Panel (08/21/22 10:26) Chest 1 View, Ap/Pa Only (08/21/22 10:26) Cbc With Automated Diff (08/21/22 10:26) Troponin I [place] (08/21/22 10:26) Aspirin Chewable Tablet (Baby Aspirin Ch (08/21/22 11:30) Ed Admission (Communication) (08/21/22 11:21) Code/Resuscitation (08/21/22 11:42) Vital Signs/I&O 08/21/22 10:26 Temp 36.5 Pulse 96 Resp 18 B/P (MAP) 165/97 (119) Pulse Ox 95 Capillary Refill : ECG Comment Atrial paced rhythm with a rate of 75 bpm. Critical Care Note Critical Care Total Time (minutes) 60 Departure Communication (Admissions) Patient is hemodynamically stable. X-ray of his chest is negative on my independent review. He has some chronic kidney findings without any acute abnormalities there. His troponin is slightly elevated. His EKG is paced, nonischemic. Electrolytes are otherwise unremarkable. Given his elevated troponin and chest pain we will go ahead and admit him for further evaluation and treatment recommendations. I spoke with Dr. Sellers who will consult. Spoke with Dr. Hernandez who accepts the patient in admission. Impression Primary Impression: Chest pain Qualified Codes: R07.9 - Chest pain, unspecified Additional Impression: Elevated troponin I level Disposition: ADMITTED INPATIENT Condition: Stable Admissions Decision to Admit Reason: Admit from ER (General) Departure-Patient Inst. Referrals: MARY HINSE MD (PCP/Family) Primary Care Physician SANDRO KRAUS DO August 21, 2022 10:35
[2022-08-21 10:44] LABS: ALBUMIN 3.7 GM/DL (3.2-4.5); POTASSIUM 4.3 MMOL/L (3.6-5.0)
[2022-08-21 10:46] LABS: CALCIUM 9.2 MG/DL (8.5-10.1)
[2022-08-21 10:47] LABS: TOTAL PROTEIN 7.2 GM/DL (6.4-8.2)
[2022-08-21 10:49] LABS: BILIRUBIN,TOTAL 0.5 MG/DL (0.1-1.0)
[2022-08-21 10:50] LABS: CREATININE SERUM 1.48 MG/DL (0.60-1.30)
--- NOTE | 2022-08-21 11:04 | Diagnostic Imaging Report ---
CHEST 1 VIEW, AP/PA ONLY Indication: Chest pain. Comparison: 06/26/2020 Findings: Stable right hemidiaphragm eventration. Low lung volumes are present. No consolidation within the visible lungs. No pleural effusion or pneumothorax. Stable cardiomegaly. Stable left pectoral dual chamber pacemaker with intact leads. No abandon pacemaker lead. Impression: 1. No acute cardiopulmonary process by portable radiography. Dictated by: Dictated on workstation # [id number]
[2022-08-21] MEDS ORDERED: ASPIRIN 81 MG CHEW (CHILDREN'S ASA) PO ONE (11:30)
--- NOTE | 2022-08-21 12:24 | Consultation-Cardiology ---
HPI-Cardiology Cardiology Consultation: Date of Consultation 08/21/22 Time Seen by a Provider: 13:50 Date of Admission 08-21-22 Attending Physician Leann Spaulding MD Admitting Physician Admitting Physician: Attending Physician: Consulting Physician Bianca Sellers MD HPI: Chief Complaint: Elevated troponin Mr. Mccarthy is an 87 yr old male admitted to 425 from the ED with elevated troponin. He reports last night he began to have uncontrollable facial twitching and spastic movement of his arms. He reports he had some twitching in his chest, but no pain. He states that has resolved. No c/o SOB, palpitations, syncope or near syncope. He reports he saw Dr. Torres last week to have his device interrogated and was told he needed to have a new pill, but the [facility] Facility that he resides at has not received an order for Dr. Torres so he has not started it yet. According to the ED note he was found to have episodes of a-fib and was to be started on Eliquis. He denies any n/v/d. Review of Systems-Cardiology Review of Systems Constitutional: No chills, No malaise Eyes: No vision change Ears/Nose/Throat: No epistaxis, No recent hearing loss Respiratory: As described under HPI Cardiovascular: As described under HPI Gastrointestinal: No constipation, No diarrhea, No nausea, No vomiting Genitourinary: No dysuria Musculoskeletal: other (chronic leg weakness that he wears leg braces) Skin: No rash on exposed areas, No ulcerations on exposed areas Psychiatric/Neurological: As described under HPI, depression; No seizure, No focal weakness, No syncope Hematologic: No bleeding abnormalities XUR-Vsyamj-Drnjsz Hx Patient Social History 2nd Hand Smoke Exposure: No Alcohol Use?: No Pt feels they are or have been: No Immunizations Up To Date Tetanus Booster (TDap): Unknown Date of Pneumonia Vaccine: Mar 25, 2017 Date of Influenza Vaccine: Dec 31, 2018 Past Medical History PMH As described under Assessment. Family Medical History Family Medical History: No reported family h/o CAD. Family History: Patient reports no known family medical history. Allergies and Home Medications Allergies Coded Allergies: metformin (Verified Adverse Reaction, Mild, Diarrhea, 08/21/22) Patient Home Medication List Acetaminophen (Tylenol) 325 Mg Tablet, 325 MG PO Q6H PRN for PAIN-MILD (1-4), (Reported) Entered as Reported by: CHONG BANUELOS on 07/09/17906 Last Action: Held Acetaminophen (Tylenol) 325 Mg Tablet, 325 MG PO QID, (Reported) Entered as Reported by: MANJU REINOSO on 08/21/221601 Last Action: Continued Allopurinol (Allopurinol) 100 Mg Tablet, 100 MG PO BID, (Reported) Entered as Reported by: ELEANOR HILL on 01/01/171653 Last Action: Continued Amlodipine Besylate (Amlodipine Besylate) 5 Mg Tablet, 5 MG PO BID, (Reported) Entered as Reported by: CHONG BANUELOS on 08/21/181255 Last Action: Continued Amoxicillin/Potassium Clav (Amox Tr-K Clv 875-125 mg Tab) 875 Mg-125 Mg Tablet, 1 EA PO BID, (Reported) Entered as Reported by: MANJU REINOSO on 08/21/221601 Last Action: Continued Aspirin (Aspirin EC) 81 Mg Tablet.dr, 81 MG PO DAILY, (Reported) Entered as Reported by: ELEANOR HILL on 01/01/171653 Last Action: Continued Cetirizine HCl (Cetirizine HCl) 10 Mg Tablet, 10 MG PO DAILY, (Reported) Entered as Reported by: MANJU REINOSO on 08/21/221601 Last Action: Converted Cholecalciferol (Vitamin D3) (Vitamin D3) 25 Mcg (1000 Unit) Tablet, 25 MCG PO DAILY, (Reported) Entered as Reported by: MANJU REINOSO on 08/21/221601 Last Action: Continued Clopidogrel Bisulfate (Clopidogrel) 75 Mg Tablet, 75 MG PO DAILY, (Reported) Entered as Reported by: CHONG BANUELOS on 07/09/17906 Last Action: Continued Cyanocobalamin (Vitamin B-12) (Vitamin B-12) 1,000 Mcg Tablet, 1,000 MCG PO DAILY, (Reported) Entered as Reported by: MANJU REINOSO on 08/21/221601 Last Action: Continued Escitalopram Oxalate (Escitalopram Oxalate) 5 Mg Tablet, 5 MG PO HS, (Reported) Entered as Reported by: MANJU REINOSO on 08/21/221601 Last Action: Converted Famotidine (Famotidine) 20 Mg Tablet, 20 MG PO DAILY, (Reported) Entered as Reported by: MANJU REINOSO on 08/21/221601 Last Action: Continued Finasteride (Finasteride) 5 Mg Tablet, 5 MG PO DAILY, (Reported) Entered as Reported by: BRIAN FLETCHER on 01/01/171007 Last Action: Continued Furosemide (Furosemide) 20 Mg Tablet, 20 MG PO DAILY, (Reported) Entered as Reported by: MANJU REINOSO on 08/21/221601 Last Action: Continued Gabapentin (Gabapentin) 100 Mg Capsule, 200 MG PO HS, (Reported) Entered as Reported by: MANJU REINOSO on 08/21/221601 Last Action: Continued Glimepiride (Glimepiride) 4 Mg Tablet, 4 MG PO DAILY, (Reported) Entered as Reported by: ELEANOR HILL on 01/01/171653 Last Action: Converted Guaifenesin (Mucinex) 600 Mg Tab.er.12h, 600 MG PO Q12H PRN for COUGH, (Reported) Entered as Reported by: MANJU REINOSO on 08/21/221601 Last Action: Continued Guaifenesin (Guaifenesin) 100 Mg/5 Ml Liquid, 5 ML PO Q4H PRN for COUGH, (Reported) Entered as Reported by: MANJU REINOSO on 08/21/221601 Last Action: Continued Insulin Glargine,Hum.rec.anlog (Lantus Solostar) 100 Unit/Ml (3 Ml) Insuln.pen, 17 UNITS SC HS, (Reported) Entered as Reported by: MANJU REINOSO on 08/21/221601 Last Action: Converted Lactobacillus Acidophilus (Acidophilus) 1 Each Capsule, 1 EACH PO BID, (Reported) Entered as Reported by: MANJU REINOSO on 08/21/221601 Last Action: Converted Loperamide HCl (Imodium A-D) 2 Mg Capsule, 2-4 MG PO UD PRN for DIARRHEA, (Reported) Entered as Reported by: MANJU REINOSO on 08/21/221601 Last Action: Continued Losartan Potassium (Losartan Potassium) 25 Mg Tablet, 25 MG PO DAILY, (Reported) Entered as Reported by: MANJU REINOSO on 08/21/221601 Last Action: Continued Menthol (Cough Drops) 5.8 Mg Lozenge, 5.8 MG MM EVERY 2 HOURS PRN for COUGH, (Reported) Entered as Reported by: MANJU REINOSO on 08/21/221601 Last Action: Converted Nystatin (Nystatin) 100,000 Unit/Gram Cream..g., 1 APPLIC TOP QID, (Reported) Entered as Reported by: MANJU REINOSO on 08/21/221601 Last Action: Continued Polyethylene Glycol 3350 (Miralax) 17 Gram Powd.pack, 8.5 GM PO DAILY PRN for CONSTIPATION-2ND LINE, (Reported) Entered as Reported by: MANJU REINOSO on 08/21/221601 Last Action: Continued Tamsulosin HCl (Flomax) 0.4 Mg Cap, 0.4 MG PO DAILY, (Reported) Entered as Reported by: CHONG BANUELOS on 08/21/181255 Last Action: Continued Timolol Maleate (Timolol Maleate 0.5%) 0.5 % Drops, 1 APPLIC TOP Q48H, (Reported) Entered as Reported by: MANJU REINOSO on 08/21/221601 Last Action: Continued Discontinued Medications Cholecalciferol (Vitamin D3) (Vitamin D3) 1,000 Unit Capsule, 1,000 UNIT PO 0700, (Reported) Discontinued Reason: No Longer Taking Entered as Reported by: CHONG BANUELOS on 08/21/181255 Last Action: Discontinued Cyanocobalamin (Vitamin B-12) (Vitamin B-12) 1,000 Mcg Tablet, 1,000 MCG PO 0700, (Reported) Discontinued Reason: No Longer Taking Entered as Reported by: CHONG BANUELOS on 08/21/181255 Last Action: Discontinued Hydrocodone/Acetaminophen (Randolph 7.5-325 Tablet) 1 Each Tablet, 1 TAB PO Q4H Discontinued Reason: No Longer Taking Prescribed by: KAMAR SWIFT on 01/06/19 1021 Last Action: Discontinued L. Acidophilus/Bulgaricus (Floranex Tablet) 1 Each Tablet, 1 TAB PO BID, (Reported) Discontinued Reason: No Longer Taking Entered as Reported by: VIN RASMUSSEN on 12/31/18 0946 Last Action: Discontinued Physical Exam-Cardiology Physical Exam Vital Signs/I&O 08/21/22 08/22/22 08/22/22 08/22/22 23:13 01:00 04:10 07:15 Temp 36.1 36.5 Pulse 83 71 72 70 Resp 18 16 B/P (MAP) 127/72 (90) 126/66 (86) Pulse Ox 92 95 O2 Delivery Room Air Room Air O2 Flow Rate 0.00 0.00 08/22/22 08:20 Temp 36.5 Pulse 77 Resp 20 B/P (MAP) 157/78 (104) Pulse Ox 93 O2 Delivery Room Air 08/22/22 00:00 Intake Total 1040 ml Output Total 1350 ml Balance -310 ml Capillary Refill : Less Than 3 Seconds Constitutional: AAO x 3, well-developed, well-nourished HEENT: PERRL, hearing is well preserved, oral hygience is good Neck: No carotid bruit; carotid pulses are 2 + bilaterally Respiratory: No accessory muscle use, No respiratory distress; chest expansion is symmetric, chest is bilaterally symmetric, lungs clear to auscultation Cardiovascular: regular rate-rhythm; No JVD; S1 and S2 Gastrointestinal: No tender; soft, round; No guarding; audible bowel sounds Extremities: no lower extremity edema bilateral Neurologic/Psychiatric: other (uncontrollable facial tic, left sided and movement of his left arm), grossly intact (moves all extremities) Skin: No rash on exposed areas, No ulcerations on exposed areas Data Review Labs Laboratory Tests 08/21/22 10:19: White Blood Count 8.6, Red Blood Count 3.86L, Hemoglobin 12.1L, Hematocrit 37L, Mean Corpuscular Volume 95, Mean Corpuscular Hemoglobin 31, Mean Corpuscular Hemoglobin Concent 33, Red Cell Distribution Width 13.6, Platelet Count 277, Mean Platelet Volume 9.9, Immature Granulocyte % (Auto) 1, Neutrophils (%) (Auto) 63, Lymphocytes (%) (Auto) 25, Monocytes (%) (Auto) 6, Eosinophils (%) (Auto) 5, Basophils (%) (Auto) 1, Neutrophils # (Auto) 5.3, Lymphocytes # (Auto) 2.2, Monocytes # (Auto) 0.5, Eosinophils # (Auto) 0.4H, Basophils # (Auto) 0.1, Immature Granulocyte # (Auto) 0.1, Sodium Level 140, Potassium Level 4.3, Chloride Level 107, Carbon Dioxide Level 21, Anion Gap 12, Blood Urea Nitrogen 31H, Creatinine 1.48H, Estimat Glomerular Filtration Rate 45, BUN/Creatinine Ratio 21, Glucose Level 119H, Calcium Level 9.2, Corrected Calcium 9.4, Total Bilirubin 0.5, Aspartate Amino Transf (AST/SGOT) 20, Alanine Aminotransferase (ALT/SGPT) 17, Alkaline Phosphatase 58, Troponin I 0.082H, Total Protein 7.2, Albumin 3.7, Thyroid Stimulating Hormone (TSH) 0.66 08/21/22 20:12: Glucometer 174H 08/22/22 01:21: Glucometer 222H 08/22/22 05:28: White Blood Count 7.3, Red Blood Count 3.62L, Hemoglobin 11.3L, Hematocrit 34L, Mean Corpuscular Volume 95, Mean Corpuscular Hemoglobin 31, Mean Corpuscular Hemoglobin Concent 33, Red Cell Distribution Width 13.5, Platelet Count 267, Mean Platelet Volume 9.9, Immature Granulocyte % (Auto) 0, Neutrophils (%) (Auto) 58, Lymphocytes (%) (Auto) 26, Monocytes (%) (Auto) 9, Eosinophils (%) (Auto) 6, Basophils (%) (Auto) 1, Neutrophils # (Auto) 4.3, Lymphocytes # (Auto) 1.9, Monocytes # (Auto) 0.7, Eosinophils # (Auto) 0.4H, Basophils # (Auto) 0.1, Immature Granulocyte # (Auto) 0.0, Sodium Level 139, Potassium Level 3.8, Chloride Level 106, Carbon Dioxide Level 22, Anion Gap 11, Blood Urea Nitrogen 26H, Creatinine 1.39H, Estimat Glomerular Filtration Rate 48, BUN/Creatinine Ratio 19, Glucose Level 171H, Calcium Level 8.7, Corrected Calcium 9.3, Total Bilirubin 0.5, Aspartate Amino Transf (AST/SGOT) 13, Alanine Aminotransferase (ALT/SGPT) 13, Alkaline Phosphatase 54, Troponin I 0.109H, Total Protein 6.2L, Albumin 3.3, Triglycerides Level 167H, Cholesterol Level 156, LDL Cholesterol Direct 92, VLDL Cholesterol 33, HDL Cholesterol 34L Radiology NAME: ALEJANDRABEVERLYSANDRO N MED REC#: [id number] PT STATUS: REG ER : 1935 PHYSICIAN: SANDRO KRAUS DO ADMIT DATE: 08/21/22/ER Draft Date of Exam:08/21/22 CHEST 1 VIEW, AP/PA ONLY CHEST 1 VIEW, AP/PA ONLY Indication: Chest pain. Comparison: 06/26/2020 Findings: Stable right hemidiaphragm eventration. Low lung volumes are present. No consolidation within the visible lungs. No pleural effusion or pneumothorax. Stable cardiomegaly. Stable left pectoral dual chamber pacemaker with intact leads. No abandon pacemaker lead. Impression: 1. No acute cardiopulmonary process by portable radiography. Dictated on workstation # [id number] Dict: 08/21/22 1101 Trans: 08/21/22 1103 [id number] Interpreted by: JESSICA RODARTE MD Electronically signed by: A/P-Cardiology Assessment/Admission Diagnosis Mildly elevated troponin Uncontrollable facial jerking and upper extremity jerking - undetermined etiology CAD. - MPI of 11/11/18: apical infarction w/o ischemia; LVEF 46% - Echo of 11/11/18: LVEF 40-45%, apical akinesis, RVSP 30 mmHg - Cardiac cath of January 08, 2019: Diffuse moderate coronary plaque and calcification Patent stented midvessel segment in LAD. Multiple 50% stenoses in the LAD 50%; 50% mid vessel stenosis of the left cx artery; patent stents in the prox and mid RCA and multiple 40-50% stenoses in the RCA; LVEDP 9 mmHg; LVEF 50- 55% H/O symptomatic bradycardia - PPM implant at [facility] in June 2017 for marked bradycardia, followed by Dr Torres in [place], [place] H/o PAF - documented during hospitalization of June 2017 at [facility] (in the setting of ac renal failure) - Eliquis started at that time, but was stopped during hospitalization at [facility] (Dr Torres) - History of isolated premature atrial and ventricular contractions. - per ED report at [facility] he has dx with episodes of PAF on interrogation of last week at Dr. 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 - Gastroesophageal reflux. Ortho - Degenerative joint disease. -Chronic bilateral drop foot (wears braces) Sleep apnea - being treated with C-PAP therapy. Hypertension - under good control. Gout - managed by PCP Hyperlipidemia - being treated with lovastatin - followed by PCP Borderline maturity onset diabetes mellitus. - managed by PCP Obesity - with a body mass index of approximately 31 Chronic poor balance and bilateral foot drop - ambulates with the help of a walker - has bilateral leg braces PAD - Scattered atherosclerotic disease of the bilateral lower extremity arterial systems, no hemodynamically significant stenosis per bilateral lower extremity arterial Doppler from 04/30/2012. - U/S from 11-24-14 showed no sonographic evidence for hemodynamically significant stenosis or arterial occlusion within either leg. 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 Torres's - call for records - advised to start OAC with Eliquis - had not started yet Continue antihypertensive regimen Monitor lab Replace electrolytes as indicated Further recs will be based on his hospital course We would like to thank medical services for this consult DELMY ESTRADA August 21, 2022 12:24
[2022-08-21] MEDS ORDERED: ONDANSETRON 4 MG/2 ML (SDV) Z0FRAN IV PRN (12:45)
[2022-08-21] MEDS ORDERED: NITROGLYCERIN 0.4 MG SL TABS BTL 25'S SL PRN (12:45)
[2022-08-21] MEDS ORDERED: ANTACID SUSP 30 ML UDC (MYLANTA) PO PRN (12:45)
[2022-08-21] MEDS ORDERED: MELATONIN 3 MG TABLET PO PRN (12:45)
[2022-08-21] MEDS ORDERED: morphine INJ 4 MG/ML 1 ML (VIAL/SYRINGE) IV PRN (12:45)
[2022-08-21] MEDS ORDERED: diphenhydrAMINE 50 MG/ML INJ (BENADRYL) IVP PRN (12:45)
[2022-08-21] MEDS ORDERED: ACETAMINOPHEN 325 MG TABLET PO PRN (12:45)
[2022-08-21] MEDS ORDERED: MILK OF MAGNESIA 400 MG/5 ML 30 ML UDC PO PRN (12:45)
[2022-08-21] MEDS ORDERED: ONDANSETRON 4 MG (ZOFRAN) ORAL DISSOLVE TAB PO PRN (12:45)
[2022-08-21] MEDS ORDERED: polyethylene glycoL POWDER 17 GM (MIRALAX) PACK PO PRN ×2 (12:45→18:30)
[2022-08-21] MEDS ORDERED: diphenhydrAMINE 25 MG TAB (BENADRYL) PO PRN (12:45)
[2022-08-21] MEDS ORDERED: LACTULOSE SYRUP 10GM/15ML (ENULOSE) 30ML UDC PO PRN (12:45)
[2022-08-21] MEDS ORDERED: CALCIUM CARBONATE 500 MG (TUMS) TAB.CHEW PO PRN (12:45)
[2022-08-21] MEDS ORDERED: BISACODYL 10 MG SUPP (DULCOLAX) PR PRN (12:45)
--- NOTE | 2022-08-21 12:47 | History & Physical ---
History of Present Illness HPI/Chief Complaint Chief complaint: Chest pain with elevated troponin HPI: This is an 87-year-old male [facility] assisted living patient of Dr. Spaulding with past medical history of atrial fibrillation and heart disease who presented to the ER with chest pain and spasms slightly elevated troponin. Cardiology recommended close monitoring and observation. He reports having muscle spasms and he does not know why. He remains a full code after ER explained the process. is at the bedside. Source: patient, family Exam Limitations: no limitations Date Seen 08/21/22 Time Seen by a Provider: 13:15 Attending Physician Leann Spaulding MD PCP Admitting Physician: Desiree Pérez DO Attending Physician: Desiree Pérez DO Referring Physician Date of Admission August 21, 2022 at 12:33 Home Medications & Allergies Home Medications Reviewed patient Home Medication Reconciliation performed by pharmacy medication reconciliations highway traffic control technician and/or nursing. Patients Allergies have been reviewed. Allergies Allergies Coded Allergies metformin (Verified Adverse Reaction, Mild, Diarrhea, 08/21/22) Past Nefsrgs-Tiordc-Xhwojw Hx Past Med/Social Hx: Reviewed Nursing Past Med/Soc Hx, Reviewed and Corrections made Patient Social History Marrital Status: Employed/Student: retired Alcohol Use: Denies Use Smoking Status: Former Smoker Former Smoker, Quit: Jul 10, 1991 2nd Hand Smoke Exposure: No Recent Hopitalizations: No Immunizations Up To Date Tetanus Booster (TDap): Unknown Date of Pneumonia Vaccine: Mar 25, 2017 Date of Influenza Vaccine: Dec 31, 2018 Seasonal Allergies Seasonal Allergies: No Past Medical History Surgeries: Appendectomy, Coronary Stent, Gallbladder, Orthopedic, Pacemaker, Tonsillectomy Currently Using CPAP: Yes Cardiac: Atrial Fibrillation, Coronary Artery Disease, High Cholesterol, Hypertension, Irregular Heartbeat Neurological: Neuropathy Reproductive: No Genitourinary: Kidney Stones Gastrointestinal: Irritable Bowel Musculoskeletal: Arthritis, Foot Drop, Gout Endocrine: Diabetes, Non-Insulin dep HEENT: Cataract Loss of Vision: Denies Hearing Impairment: Hard of Hearing History of Blood Disorders: No Family History Reviewed Nursing Family Hx Patient reports no known family medical history. No Pertinent Family Hx, Hypertension Review of Systems Constitutional: see HPI Cardiovascular: chest pain Musculoskeletal: muscle cramps Physical Exam Physical Exam Vital Signs Vital Signs - First Documented 08/21/22 08/21/22 08/21/22 08/21/22 10:26 12:59 13:03 19:43 Temp 36.5 Pulse 96 Resp 18 B/P (MAP) 165/97 (119) Pulse Ox 95 O2 Delivery Room Air O2 Flow Rate 0.00 FiO2 21 Capillary Refill : Less Than 3 Seconds Height, Weight, BMI Height: 5'9.00" Weight: 207lbs. 7.0oz. [id number]; 33.00 BMI Method:Stated General Appearance: No Apparent Distress, WD/WN, Chronically ill HEENT: Normal ENT Inspection, Pharynx Normal Neck: Full Range of Motion, Normal Inspection, Non Tender, Supple Respiratory: Chest Non Tender, Lungs Clear, Normal Breath Sounds, No Accessory Muscle Use, No Respiratory Distress, Other (Occasional interruption with respiration causing him to take another deep breath.) Cardiovascular: Regular Rate, Rhythm, No Murmur, Other (Pacemaker left chest wall) Gastrointestinal: Normal Bowel Sounds, Non Tender, Soft Extremity: Normal Capillary Refill, Normal Inspection, Normal Range of Motion, Non Tender, No Calf Tenderness Neurologic/Psychiatric: Alert, Oriented x3, Normal Mood/Affect Skin: Normal Color, Warm/Dry Results Results/Procedures Labs Laboratory Tests 08/21/22 10:19 Patient resulted labs reviewed. Assessment/Plan Admission Diagnosis Assessment: Chest pain with elevated troponin Muscle spasms Atrial fibrillation CAD previous stents Hypertension Hyperlipidemia Advanced age Plan: Trend troponin Cardiology evaluation Monitor muscle spasms Admission Status: Observation DESIREE PÉREZ DO August 21, 2022 12:47
[2022-08-21 12:59] VITALS: BP 135/79
[2022-08-21 13:03] VITALS: BP 165/97
[2022-08-21] MEDS ORDERED: RT-ALBUTEROL/IPRATROPIUM 3 ML (DUONEB) VIAL INH PRN (13:15)
[2022-08-21] MEDS ORDERED: LOSA25TA41 PO (16:02)
[2022-08-21] MEDS ORDERED: INSU100I10 SC (16:02)
[2022-08-21] MEDS ORDERED: POLY17PO6 PO (16:02)
[2022-08-21] MEDS ORDERED: TIMO5DRO16 TOP (16:02)
[2022-08-21] MEDS ORDERED: AMOX1TAB12 PO (16:02)
[2022-08-21] MEDS ORDERED: CETI10TA17 PO (16:02)
[2022-08-21] MEDS ORDERED: CHOL-34 PO (16:02)
[2022-08-21] MEDS ORDERED: FAMO20TA5 PO (16:02)
[2022-08-21] MEDS ORDERED: ESCI5TAB16 PO (16:02)
[2022-08-21] MEDS ORDERED: [UNRECOGNIZED DRUG - CODE] MM (16:02)
[2022-08-21] MEDS ORDERED: GABA-486 PO (16:02)
[2022-08-21] MEDS ORDERED: ACET325T38 PO (16:02)
[2022-08-21] MEDS ORDERED: LOPE-175 PO (16:02)
[2022-08-21] MEDS ORDERED: GUAI600T43 PO (16:02)
[2022-08-21] MEDS ORDERED: NYST15CR35 TOP (16:02)
[2022-08-21] MEDS ORDERED: GUAI100L13 PO (16:02)
[2022-08-21] MEDS ORDERED: CYAN-41 PO (16:02)
[2022-08-21] MEDS ORDERED: LACT1CAP28 PO (16:02)
[2022-08-21] MEDS ORDERED: FURO20TA4 PO (16:02)
[2022-08-21] MEDS ORDERED: HYPOCHLOROUS ACID/NaCl (VASHE) 250 ML IR PRN (16:15)
[2022-08-21 17:00] VITALS: BP 143/67
[2022-08-21] MEDS ORDERED: LOPERAMIDE 2 MG (IMODIUM) TABLET PO PRN (18:30)
[2022-08-21] MEDS ORDERED: TIMOLOL MALEATE 0.5% 5 ML (TIMOPTIC) BTL OP SCH (18:30)
[2022-08-21] MEDS ORDERED: guaiFENesin (MUCINEX) 600 MG TAB PO PRN (18:30)
[2022-08-21] MEDS ORDERED: guaiFENesin SYRUP 100 MG/5 ML 10 ML (ROBITUSSIN SF) PO PRN (18:30)
--- NOTE | 2022-08-21 18:54 | Consultation-Cardiology ---
HPI-Cardiology Cardiology Consultation: Date of Consultation 08/21/22 Time Seen by a Provider: 18:30 Date of Admission Attending Physician Leann Spaulding MD Admitting Physician Admitting Physician: Desiree Pérez DO Attending Physician: Desiree Pérez DO Consulting Physician DEEJAY KENYON MD, MA, FACP, FACC, [facility] [place], [place], CCDS Physician requesting consult: Dr Pérez HPI: Chief Complaint: Involuntary twitching Mr. Mccarthy is an 87 yr old male admitted to [facility] from the ED with elevated troponin. He reports last night he began to have uncontrollable facial twitching and spastic movement of his arms. He reports he had some twitching in his chest, but no pain. He states that has resolved. No c/o SOB, palpitations, syncope or near syncope. He reports he saw Dr. Torres last week to have his device interrogated and was told he needed to have a new pill, but the [facility] that he resides at has not received an order for Dr. Torres so he has not started it yet. According to the ED note he was found to have episodes of a-fib and was to be started on Eliquis. He denies any n/v/d. We have been asked to see him because he had mildly elevated troponin at presentation. Review of Systems-Cardiology Review of Systems Constitutional: No chills, No malaise Eyes: No vision change Ears/Nose/Throat: No epistaxis, No recent hearing loss Respiratory: As described under HPI Cardiovascular: As described under HPI Gastrointestinal: No constipation, No diarrhea, No nausea, No vomiting Genitourinary: No dysuria Musculoskeletal: other (chronic leg weakness that he wears leg braces) Skin: No rash on exposed areas, No ulcerations on exposed areas Psychiatric/Neurological: As described under HPI, depression; No seizure, No focal weakness, No syncope Hematologic: No bleeding abnormalities [id number]-Icvske Hx Patient Social History 2nd Hand Smoke Exposure: No Have you traveled recently?: No Alcohol Use?: No Pt feels they are or have been: No Immunizations Up To Date Tetanus Booster (TDap): Unknown Date of Pneumonia Vaccine: Mar 25, 2017 Date of Influenza Vaccine: Dec 31, 2018 Past Medical History PMH As described under Assessment. Family Medical History Family Medical History: No reported family h/o CAD. Family History: Patient reports no known family medical history. Allergies and Home Medications Allergies Coded Allergies: metformin (Verified Adverse Reaction, Mild, Diarrhea, 08/21/22) Patient Home Medication List Home Medication List Reviewed: Yes Acetaminophen (Tylenol) 325 Mg Tablet, 325 MG PO Q6H PRN for PAIN-MILD (1-4), (Reported) Entered as Reported by: CHONG BANUELOS on 07/09/17906 Last Action: Held Acetaminophen (Tylenol) 325 Mg Tablet, 325 MG PO QID, (Reported) Entered as Reported by: MANJU REINOSO on 08/21/221601 Last Action: Continued Allopurinol (Allopurinol) 100 Mg Tablet, 100 MG PO BID, (Reported) Entered as Reported by: ELEANOR HILL on 01/01/171653 Last Action: Continued Amlodipine Besylate (Amlodipine Besylate) 5 Mg Tablet, 5 MG PO BID, (Reported) Entered as Reported by: CHONG BANUELOS on 08/21/18 1256 Last Action: Continued Amoxicillin/Potassium Clav (Amox Tr-K Clv 875-125 mg Tab) 875 Mg-125 Mg Tablet, 1 EA PO BID, (Reported) Entered as Reported by: MANJU REINOSO on 08/21/221601 Last Action: Continued Aspirin (Aspirin EC) 81 Mg Tablet.dr, 81 MG PO DAILY, (Reported) Entered as Reported by: ELEANOR HILL on 01/01/171653 Last Action: Continued Cetirizine HCl (Cetirizine HCl) 10 Mg Tablet, 10 MG PO DAILY, (Reported) Entered as Reported by: MANJU REINOSO on 08/21/221601 Last Action: Converted Cholecalciferol (Vitamin D3) (Vitamin D3) 25 Mcg (1000 Unit) Tablet, 25 MCG PO DAILY, (Reported) Entered as Reported by: MANJU REINOSO on 08/21/221601 Last Action: Continued Clopidogrel Bisulfate (Clopidogrel) 75 Mg Tablet, 75 MG PO DAILY, (Reported) Entered as Reported by: CHONG BANUELOS on 07/09/17906 Last Action: Continued Cyanocobalamin (Vitamin B-12) (Vitamin B-12) 1,000 Mcg Tablet, 1,000 MCG PO DAILY, (Reported) Entered as Reported by: MANJU REINOSO on 08/21/221601 Last Action: Continued Escitalopram Oxalate (Escitalopram Oxalate) 5 Mg Tablet, 5 MG PO HS, (Reported) Entered as Reported by: MANJU REINOSO on 08/21/221601 Last Action: Converted Famotidine (Famotidine) 20 Mg Tablet, 20 MG PO DAILY, (Reported) Entered as Reported by: MANJU REINOSO on 08/21/221601 Last Action: Continued Finasteride (Finasteride) 5 Mg Tablet, 5 MG PO DAILY, (Reported) Entered as Reported by: BRIAN FLETCHER on 01/01/17 1008 Last Action: Continued Furosemide (Furosemide) 20 Mg Tablet, 20 MG PO DAILY, (Reported) Entered as Reported by: MANJU REINOSO on 08/21/221601 Last Action: Continued Gabapentin (Gabapentin) 100 Mg Capsule, 200 MG PO HS, (Reported) Entered as Reported by: MANJU REINOSO on 08/21/221601 Last Action: Continued Glimepiride (Glimepiride) 4 Mg Tablet, 4 MG PO DAILY, (Reported) Entered as Reported by: ELEANOR HILL on 01/01/171653 Last Action: Converted Guaifenesin (Mucinex) 600 Mg Tab.er.12h, 600 MG PO Q12H PRN for COUGH, (Reported) Entered as Reported by: MANJU REINOSO on 08/21/221601 Last Action: Continued Guaifenesin (Guaifenesin) 100 Mg/5 Ml Liquid, 5 ML PO Q4H PRN for COUGH, (Reported) Entered as Reported by: MANJU REINOSO on 08/21/221601 Last Action: Continued Insulin Glargine,Hum.rec.anlog (Lantus Solostar) 100 Unit/Ml (3 Ml) Insuln.pen, 17 UNITS SC HS, (Reported) Entered as Reported by: MANJU REINOSO on 08/21/221601 Last Action: Converted Lactobacillus Acidophilus (Acidophilus) 1 Each Capsule, 1 EACH PO BID, (Reported) Entered as Reported by: MANJU REINOSO on 08/21/221601 Last Action: Converted Loperamide HCl (Imodium A-D) 2 Mg Capsule, 2-4 MG PO UD PRN for DIARRHEA, (Reported) Entered as Reported by: MANJU REINOSO on 08/21/221601 Last Action: Continued Losartan Potassium (Losartan Potassium) 25 Mg Tablet, 25 MG PO DAILY, (Reported) Entered as Reported by: MANJU REINOSO on 08/21/221601 Last Action: Continued Menthol (Cough Drops) 5.8 Mg Lozenge, 5.8 MG MM EVERY 2 HOURS PRN for COUGH, (Reported) Entered as Reported by: MANJU REINOSO on 08/21/221601 Last Action: Converted Nystatin (Nystatin) 100,000 Unit/Gram Cream..g., 1 APPLIC TOP QID, (Reported) Entered as Reported by: MANJU REINOSO on 08/21/221601 Last Action: Continued Polyethylene Glycol 3350 (Miralax) 17 Gram Powd.pack, 8.5 GM PO DAILY PRN for CONSTIPATION-2ND LINE, (Reported) Entered as Reported by: MANJU REINOSO on 08/21/221601 Last Action: Continued Tamsulosin HCl (Flomax) 0.4 Mg Cap, 0.4 MG PO DAILY, (Reported) Entered as Reported by: CHONG BANUELOS on 08/21/181255 Last Action: Continued Timolol Maleate (Timolol Maleate 0.5%) 0.5 % Drops, 1 APPLIC TOP Q48H, (Reported) Entered as Reported by: MANJU REINOSO on 08/21/221601 Last Action: Continued Discontinued Medications Cholecalciferol (Vitamin D3) (Vitamin D3) 1,000 Unit Capsule, 1,000 UNIT PO 0700, (Reported) Discontinued Reason: No Longer Taking Entered as Reported by: CHONG BANUELOS on 08/21/181255 Last Action: Discontinued Cyanocobalamin (Vitamin B-12) (Vitamin B-12) 1,000 Mcg Tablet, 1,000 MCG PO 0700, (Reported) Discontinued Reason: No Longer Taking Entered as Reported by: CHONG BANUELOS on 08/21/181255 Last Action: Discontinued Hydrocodone/Acetaminophen ([place] 7.5-325 Tablet) 1 Each Tablet, 1 TAB PO Q4H Discontinued Reason: No Longer Taking Prescribed by: KAMAR SWIFT on 01/06/19 1021 Last Action: Discontinued L. Acidophilus/Bulgaricus (Floranex Tablet) 1 Each Tablet, 1 TAB PO BID, (Reported) Discontinued Reason: No Longer Taking Entered as Reported by: VIN RASMUSSEN on 12/31/18 0905 Last Action: Discontinued Physical Exam-Cardiology Physical Exam Vital Signs/I&O 08/21/22 08/21/22 08/21/22 08/21/22 10:26 12:41 12:59 13:00 Temp 36.5 36.6 Pulse 96 80 95 Resp 18 16 20 B/P (MAP) 165/97 (119) 149/80 135/79 (97) Pulse Ox 95 94 88 O2 Delivery Room Air Room Air 08/21/22 08/21/22 08/21/22 13:03 14:00 17:00 Temp 36.5 36.5 Pulse 96 70 73 Resp 19 B/P (MAP) 143/67 (92) Pulse Ox 95 95 O2 Delivery Room Air FiO2 21 Capillary Refill : Less Than 3 Seconds Constitutional: AAO x 3, well-developed, well-nourished HEENT: PERRL, hearing is well preserved, oral hygience is good Neck: No carotid bruit; carotid pulses are 2 + bilaterally Respiratory: No accessory muscle use, No respiratory distress; chest expansion is symmetric, chest is bilaterally symmetric, lungs clear to auscultation Cardiovascular: regular rate-rhythm; No JVD; S1 and S2 Gastrointestinal: No tender; soft, round; No guarding; audible bowel sounds Extremities: no lower extremity edema bilateral Neurologic/Psychiatric: other (uncontrollable facial tic, left sided and moveme nt of his left arm; moves all extremities) Skin: No rash on exposed areas, No ulcerations on exposed areas Data Review Labs Laboratory Tests 08/21/22 10:19: White Blood Count 8.6, Red Blood Count 3.86L, Hemoglobin 12.1L, Hematocrit 37L, Mean Corpuscular Volume 95, Mean Corpuscular Hemoglobin 31, Mean Corpuscular Hemoglobin Concent 33, Red Cell Distribution Width 13.6, Platelet Count 277, Mean Platelet Volume 9.9, Immature Granulocyte % (Auto) 1, Neutrophils (%) (Aut o) 63, Lymphocytes (%) (Auto) 25, Monocytes (%) (Auto) 6, Eosinophils (%) (Auto) 5, Basophils (%) (Auto) 1, Neutrophils # (Auto) 5.3, Lymphocytes # (Auto) 2.2, Monocytes # (Auto) 0.5, Eosinophils # (Auto) 0.4H, Basophils # (Auto) 0.1, Immature Granulocyte # (Auto) 0.1, Sodium Level 140, Potassium Level 4.3, Chloride Level 107, Carbon Dioxide Level 21, Anion Gap 12, Blood Urea Nitrogen 31H, Creatinine 1.48H, Estimat Glomerular Filtration Rate 45, BUN/Creatinine Ratio 21, Glucose Level 119H, Calcium Level 9.2, Corrected Calcium 9.4, Total Bilirubin 0.5, Aspartate Amino Transf (AST/SGOT) 20, Alanine Aminotransferase (ALT/SGPT) 17, Alkaline Phosphatase 58, Troponin I 0.082H, Total Protein 7.2, Albumin 3.7, Thyroid Stimulating Hormone (TSH) 0.66 Laboratory Tests 08/21/22 10:19 A/P-Cardiology Assessment/Admission Diagnosis Choreiform movements of undetermined etiology - evaluated and managed by Dr Pérez Mildly elevated troponin - probably due to PAF and renal failure (no clinical evidence of acute coronary syndrome) CAD. - MPI of 11/11/18: apical infarction w/o ischemia; LVEF 46% - Echo of 11/11/18: LVEF 40-45%, apical akinesis, RVSP 30 mmHg - Cardiac cath of January 08, 2019: Diffuse moderate coronary plaque and calcification Patent stented midvessel segment in LAD. Multiple 50% stenoses in the LAD 50%; 50% mid vessel stenosis of the left cx artery; patent stents in the prox and mid RCA and multiple 40-50% stenoses in the RCA; LVEDP 9 mmHg; LVEF 50- 55% H/O symptomatic bradycardia - PPM implant at [facility] in June 2017 for marked bradycardia, followed by Dr Torres in [place], [place] H/o PAF - documented during hospitalization of June 2017 at [facility] (in the setting of ac renal failure) - Eliquis started at that time, but was stopped during hospitalization at [facility] (Dr Torres) - History of isolated premature atrial and ventricular contractions. - per ED report at [facility] he has dx with episodes of PAF on interrogation of last week at Dr. Torres's (July 2022) and Eliquis was to be started - he has not done so yet H/O upper extremity jerking spasms and jaw jerking in June 2017 - transported to [facility] where it was felt to be myoclonus and asterixis d/t FRANCIA and build up of medications at that time Carotid dz - Mild carotid artery disease per carotid ultrasonography of 07/29/20 Chronic intermittent leg swelling - likely related to venous insufficiency, currently controlled GI - Chronic intermittent diarrhea of undetermined etiology, currently stable. - Gastroesophageal reflux. Ortho - Degenerative joint disease. -Chronic bilateral drop foot (wears braces) Sleep apnea - being treated with C-PAP therapy. Hypertension - under good control. Gout - managed by PCP Hyperlipidemia - being treated with lovastatin - followed by PCP Borderline maturity onset diabetes mellitus. - managed by PCP Obesity - with a body mass index of approximately 31 Chronic poor balance and bilateral foot drop - ambulates with the help of a walker - has bilateral leg braces PAD - Scattered atherosclerotic disease of the bilateral lower extremity arterial systems, no hemodynamically significant stenosis per bilateral lower extremity arterial Doppler from 04/30/2012. - U/S from 11-24-14 showed no sonographic evidence for hemodynamically significant stenosis or arterial occlusion within either leg. 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 His presenting and main complaint is involuntary, choreiform movements. These are being evaluated and treated by the Hospitalist Service (Dr Pérez) * We recommend consideration of transfer to a tertiary care facility with Neuro services if choreiform movement remain undiagnosed/untreated * Cardiac recs: apixaban because of PAF; aspirin because of h/o moderate CAD; continue antihypertensive regimen; monitor labs and correct abnormalities DEEJAY KENYON MD FACP FAC CCDS August 21, 2022 18:54
[2022-08-21 20:23] VITALS: BP 149/70
[2022-08-21] MEDS: ALLOPURINOL 100 MG (ZYLOPRIM) TAB PO SCH (20:48)
[2022-08-21] MEDS: AUGMENTIN 875 MG TAB (AMOXICILLIN/CLAVULANATE) PO SCH (20:49)
[2022-08-21] MEDS: amLODIPine 5 MG (NORVASC) TAB PO SCH (20:49)
[2022-08-21] MEDS: ACETAMINOPHEN 325 MG TABLET PO SCH (20:49)
[2022-08-21] MEDS: SENNOSIDES 8.6 MG (SENOKOT) TAB PO SCH (20:50)
[2022-08-21] MEDS: DOCUSATE SODIUM 100 MG (COLACE) CAP PO SCH (20:50)
[2022-08-21] MEDS: APIXABAN 5 MG (ELIQUIS) TABLET PO SCH (20:50)
[2022-08-21] MEDS: LACTOBACILLUS ACIDOPHILUS (PROBIOTIC) CAPSULE PO SCH (20:50)
[2022-08-21] MEDS ORDERED: GABAPENTIN 100 MG (NEURONTIN) CAP PO SCH (21:00)
[2022-08-21] MEDS ORDERED: RT-ALBUTEROL/IPRATROPIUM 3 ML (DUONEB) VIAL INH SCH ×2 (21:00)
[2022-08-21] MEDS: NYSTATIN CREAM (MYCOSTATIN) 30 GM TUBE TP SCH (21:06)
[2022-08-21 23:13] VITALS: BP 127/72
[2022-08-22 04:10] VITALS: BP 126/66
[2022-08-22 06:06] LABS: BASOPHILS # (AUTO) 0.1 10^3/uL (0.0-0.1); BASOPHILS % (AUTO) 1 % (0-10); EOSINOPHILS # (AUTO) 0.4 10^3/uL (0.0-0.3); EOSINOPHILS % (AUTO) 6 % (0-10); HEMATOCRIT 34 % (40-54); HEMOGLOBIN 11.3 g/dL (13.3-17.7); LYMPHOCYTES # (AUTO) 1.9 10^3/uL (1.0-4.0); LYMPHOCYTES % (AUTO) 26 % (12-44); MEAN CORPUSCULAR HEMOGLOBIN 31 pg (25-34); MEAN CORPUSCULAR HGB CONC 33 g/dL (32-36); MEAN CORPUSCULAR VOLUME 95 fL (80-99); MEAN PLATELET VOLUME 9.9 fL (9.0-12.2); MONOCYTES # (AUTO) 0.7 10^3/uL (0.0-1.0); MONOCYTES % (AUTO) 9 % (0-12); NEUTROPHILS # (AUTO) 4.3 10^3/uL (1.8-7.8); NEUTROPHILS % (AUTO) 58 % (42-75); PLATELET COUNT 267 10^3/uL (130-400); WHITE BLOOD COUNT 7.3 10^3/uL (4.3-11.0)
[2022-08-22 06:24] LABS: ALBUMIN 3.3 GM/DL (3.2-4.5); BILIRUBIN,TOTAL 0.5 MG/DL (0.1-1.0); CALCIUM 8.7 MG/DL (8.5-10.1); CREATININE SERUM 1.39 MG/DL (0.60-1.30); POTASSIUM 3.8 MMOL/L (3.6-5.0); TOTAL PROTEIN 6.2 GM/DL (6.4-8.2)
[2022-08-22] MEDS ORDERED: GLIMEPIRIDE 2 MG (AMARYL) TAB PO SCH (06:30)
[2022-08-22 08:20] VITALS: BP 157/78
--- NOTE | 2022-08-22 08:37 | Wound Care Assessment ---
Wound Care Assessment Date Seen by Provider: August 22, 2022 Time Seen by Provider: 08:31 Chief Complaint L. toe ulcer HPI This 87 year old gentleman is a relatively new patient to my outpatient clinic. He has a chronic diabetic foot ulcer to his dorsal L. 2 toe. Lab workup on 08-07-22 revealed rare MSSA on deep tissue culture, mild chronic kidney disease, mild anemia, borderline inflammatory labs, an A1C of 7.6 and plain films without obvious osteomyelitis (though noted low bone density). He was improved on last visit and was being treated with HFB and timolol as outpatient. Will continue silver alginate dressings while admitted. He was admitted for chest pain. Past Medical History: Admits Diabetes Type II, Admits Heart Disease Smoking Status: Former Smoker Recreational Drug Use: No Alcohol Use: Denies Use Exam Vital Signs Date Time Temp Pulse Resp B/P (MAP) Pulse Ox O2 Delivery O2 Flow Rate FiO2 08/22/22 08:20 36.5 77 20 157/78 (104) 93 Room Air 08/21/22 23:13 0.00 0.00 08/21/22 19:43 21 Capillary Refill : Less Than 3 Seconds General Appearance: WD/WN, no apparent distress, obese HEENT: other (not [place]) Neck: full range of motion Cardiovascular: no edema Respiratory: no respiratory distress, no accessory muscle use Extremities: normal range of motion Neurologic/Psychiatric: alert, normal mood/affect Skin: normal color, warm/dry Skin Problem Location: lower extremities Wound assessment: 1.1x0.8x0.1cm. The epithelialization is none. There is no tunn eling or undermining. Drainage is large and serosanguinous. Granulation is small and pink. Necrotic is large and slough. The margins show epibole. Results Laboratory Tests 08/21/22 10:19: White Blood Count 8.6, Red Blood Count 3.86L, Hemoglobin 12.1L, Hematocrit 37L, Mean Corpuscular Volume 95, Mean Corpuscular Hemoglobin 31, Mean Corpuscular Hemoglobin Concent 33, Red Cell Distribution Width 13.6, Platelet Count 277, Mean Platelet Volume 9.9, Immature Granulocyte % (Auto) 1, Neutrophils (%) (Auto) 63, Lymphocytes (%) (Auto) 25, Monocytes (%) (Auto) 6, Eosinophils (%) (Auto) 5, Basophils (%) (Auto) 1, Neutrophils # (Auto) 5.3, Lymphocytes # (Auto) 2.2, Monocytes # (Auto) 0.5, Eosinophils # (Auto) 0.4H, Basophils # (Auto) 0.1, Immature Granulocyte # (Auto) 0.1, Sodium Level 140, Potassium Level 4.3, Chloride Level 107, Carbon Dioxide Level 21, Anion Gap 12, Blood Urea Nitrogen 31H, Creatinine 1.48H, Estimat Glomerular Filtration Rate 45, BUN/Creatinine Ratio 21, Glucose Level 119H, Calcium Level 9.2, Corrected Calcium 9.4, Total Bilirubin 0.5, Aspartate Amino Transf (AST/SGOT) 20, Alanine Aminotransferase (ALT/SGPT) 17, Alkaline Phosphatase 58, Troponin I 0.082H, Total Protein 7.2, Albumin 3.7, Thyroid Stimulating Hormone (TSH) 0.66 08/21/22 20:12: Glucometer 174H 08/22/22 01:21: Glucometer 222H 08/22/22 05:28: White Blood Count 7.3, Red Blood Count 3.62L, Hemoglobin 11.3L, Hematocrit 34L, Mean Corpuscular Volume 95, Mean Corpuscular Hemoglobin 31, Mean Corpuscular Hemoglobin Concent 33, Red Cell Distribution Width 13.5, Platelet Count 267, Mean Platelet Volume 9.9, Immature Granulocyte % (Auto) 0, Neutrophils (%) (Auto) 58, Lymphocytes (%) (Auto) 26, Monocytes (%) (Auto) 9, Eosinophils (%) (Auto) 6, Basophils (%) (Auto) 1, Neutrophils # (Auto) 4.3, Lymphocytes # (Auto) 1.9, Monocytes # (Auto) 0.7, Eosinophils # (Auto) 0.4H, Basophils # (Auto) 0.1, Immature Granulocyte # (Auto) 0.0, Sodium Level 139, Potassium Level 3.8, Chloride Level 106, Carbon Dioxide Level 22, Anion Gap 11, Blood Urea Nitrogen 26H, Creatinine 1.39H, Estimat Glomerular Filtration Rate 48, BUN/Creatinine Ratio 19, Glucose Level 171H, Calcium Level 8.7, Corrected Calcium 9.3, Total Bilirubin 0.5, Aspartate Amino Transf (AST/SGOT) 13, Alanine Aminotransferase (ALT/SGPT) 13, Alkaline Phosphatase 54, Troponin I 0.109H, Total Protein 6.2L, Albumin 3.3, Triglycerides Level 167H, Cholesterol Level 156, LDL Cholesterol Direct 92, VLDL Cholesterol 33, HDL Cholesterol 34L Assessment/Plan/Dx Assessment: 1. Non-pressure ulcer L. dorsal toe 2. Diabetic foot ulcer 3. DM2 with hyperglycemia 4. Lymphedema 5. Chronic kidney disease 6. Chest pain-resolved this a.m. Plan: 1. Cleanse daily with vashe. Silver alginate to wound bed and secure with mepilex. Change daily. Follow up as outpatient on d/c home 2. As above 3. Defer to primary team 4. Elevate as able 5. Defer to primary team 6. Defer to primary team SCOTT THAKUR MD August 22, 2022 08:37
[2022-08-22] MEDS: AUGMENTIN 875 MG TAB (AMOXICILLIN/CLAVULANATE) PO SCH (08:39)
[2022-08-22] MEDS: ALLOPURINOL 100 MG (ZYLOPRIM) TAB PO SCH (08:39)
[2022-08-22] MEDS: LACTOBACILLUS ACIDOPHILUS (PROBIOTIC) CAPSULE PO SCH (08:39)
[2022-08-22] MEDS: ACETAMINOPHEN 325 MG TABLET PO SCH ×2 (08:39→13:59)
[2022-08-22] MEDS: amLODIPine 5 MG (NORVASC) TAB PO SCH (08:40)
[2022-08-22] MEDS: DOCUSATE SODIUM 100 MG (COLACE) CAP PO SCH (08:40)
[2022-08-22] MEDS: APIXABAN 5 MG (ELIQUIS) TABLET PO SCH (08:40)
[2022-08-22] MEDS: SENNOSIDES 8.6 MG (SENOKOT) TAB PO SCH (08:40)
[2022-08-22] MEDS: NYSTATIN CREAM (MYCOSTATIN) 30 GM TUBE TP SCH ×2 (08:43→13:59)
[2022-08-22] MEDS ORDERED: FINASTERIDE (PROSCAR) 5 MG TAB PO SCH (09:00)
[2022-08-22] MEDS ORDERED: CYANOCOBALAMIN 1,000 MCG (VITAMIN B-12) TABLET PO SCH (09:00)
[2022-08-22] MEDS ORDERED: ASPIRIN E.C. 81 MG (ECOTRIN) TAB PO SCH (09:00)
[2022-08-22] MEDS ORDERED: LORATADINE (CLARITIN) 10 MG TAB PO SCH (09:00)
[2022-08-22] MEDS ORDERED: TAMSULOSIN 0.4 MG (FLOMAX) CAP PO SCH (09:00)
[2022-08-22] MEDS ORDERED: VITAMIN D3 25 MCG (1,000 UNITS) TABLET PO SCH (09:00)
[2022-08-22] MEDS ORDERED: FUROSEMIDE 20 MG (LASIX) TAB PO SCH (09:00)
[2022-08-22] MEDS ORDERED: LOSARTAN 25 MG (COZAAR) TAB PO SCH (09:00)
[2022-08-22] MEDS ORDERED: CLOPIDOGREL 75 MG (PLAVIX) TABLET PO SCH (09:00)
[2022-08-22] MEDS ORDERED: FAMOTIDINE 20 MG (PEPCID) TABLET PO SCH (09:00)
[2022-08-22] MEDS ORDERED: ASPIRIN 81 MG CHEW (CHILDREN'S ASA) PO SCH (09:00)
[2022-08-22] MEDS ORDERED: BENZOCAINE LOZENGES 1 EACH LOZENGE MM PRN (09:15)
--- NOTE | 2022-08-22 10:13 | Progress Note - Cardiology ---
Cardiology SOAP Progress Note Subjective: Lying in bed States he feels good this morning No c/o CP, SOB or palpitations Tremor/jerking motions have resolved Objective: I&O/Vital Signs 08/21/22 08/22/22 08/22/22 08/22/22 23:13 01:00 04:10 07:15 Temp 36.1 36.5 Pulse 83 71 72 70 Resp 18 16 B/P (MAP) 127/72 (90) 126/66 (86) Pulse Ox 92 95 O2 Delivery Room Air Room Air O2 Flow Rate 0.00 0.00 08/22/22 08:20 Temp 36.5 Pulse 77 Resp 20 B/P (MAP) 157/78 (104) Pulse Ox 93 O2 Delivery Room Air 08/22/22 00:00 Intake Total 1040 ml Output Total 1350 ml Balance -310 ml Weight (Pounds): 207 Weight (Ounces): 7.0 Weight (Calculated Kilograms): 94.867564 Constitutional: AAO x 3, well-developed, well-nourished Respiratory: No accessory muscle use, No respiratory distress; chest expansion is symmetric, chest is bilaterally symmetric, lungs clear to auscultation Cardiovascular: regular rate-rhythm; No JVD; S1 and S2 Gastrointestional: No tender; soft, round; No guarding; audible bowel sounds Extremities: no lower extremity edema bilateral Neurologic/Psychiatric: other (moves all extremities) Skin: No rash on exposed areas, No ulcerations on exposed areas Results/Procedures: Labs Laboratory Tests 08/21/22 10:19: White Blood Count 8.6, Red Blood Count 3.86L, Hemoglobin 12.1L, Hematocrit 37L, Mean Corpuscular Volume 95, Mean Corpuscular Hemoglobin 31, Mean Corpuscular Hemoglobin Concent 33, Red Cell Distribution Width 13.6, Platelet Count 277, M chrissy Platelet Volume 9.9, Immature Granulocyte % (Auto) 1, Neutrophils (%) (Auto) 63, Lymphocytes (%) (Auto) 25, Monocytes (%) (Auto) 6, Eosinophils (%) (Auto) 5, Basophils (%) (Auto) 1, Neutrophils # (Auto) 5.3, Lymphocytes # (Auto) 2.2, Monocytes # (Auto) 0.5, Eosinophils # (Auto) 0.4H, Basophils # (Auto) 0.1, Immature Granulocyte # (Auto) 0.1, Sodium Level 140, Potassium Level 4.3, Chloride Level 107, Carbon Dioxide Level 21, Anion Gap 12, Blood Urea Nitrogen 31H, Creatinine 1.48H, Estimat Glomerular Filtration Rate 45, BUN/Creatinine Ratio 21, Glucose Level 119H, Calcium Level 9.2, Corrected Calcium 9.4, Total Bilirubin 0.5, Aspartate Amino Transf (AST/SGOT) 20, Alanine Aminotransferase (ALT/SGPT) 17, Alkaline Phosphatase 58, Troponin I 0.082H, Total Protein 7.2, Albumin 3.7, Thyroid Stimulating Hormone (TSH) 0.66 08/21/22 20:12: Glucometer 174H 08/22/22 01:21: Glucometer 222H 08/22/22 05:28: White Blood Count 7.3, Red Blood Count 3.62L, Hemoglobin 11.3L, Hematocrit 34L, Mean Corpuscular Volume 95, Mean Corpuscular Hemoglobin 31, Mean Corpuscular Hemoglobin Concent 33, Red Cell Distribution Width 13.5, Platelet Count 267, Mean Platelet Volume 9.9, Immature Granulocyte % (Auto) 0, Neutrophils (%) (Au to) 58, Lymphocytes (%) (Auto) 26, Monocytes (%) (Auto) 9, Eosinophils (%) (Auto) 6, Basophils (%) (Auto) 1, Neutrophils # (Auto) 4.3, Lymphocytes # (Auto) 1.9, Monocytes # (Auto) 0.7, Eosinophils # (Auto) 0.4H, Basophils # (Auto) 0.1, Immature Granulocyte # (Auto) 0.0, Sodium Level 139, Potassium Level 3.8, Chloride Level 106, Carbon Dioxide Level 22, Anion Gap 11, Blood Urea Nitrogen 26H, Creatinine 1.39H, Estimat Glomerular Filtration Rate 48, BUN/Creatinine Ratio 19, Glucose Level 171H, Calcium Level 8.7, Corrected Calcium 9.3, Total Bilirubin 0.5, Aspartate Amino Transf (AST/SGOT) 13, Alanine Aminotransferase (ALT/SGPT) 13, Alkaline Phosphatase 54, Troponin I 0.109H, Total Protein 6.2L, Albumin 3.3, Triglycerides Level 167H, Cholesterol Level 156, LDL Cholesterol Direct 92, VLDL Cholesterol 33, HDL Cholesterol 34L A/P: Assessment: Choreiform movements of undetermined etiology - evaluated and managed by Dr Pérez - resolved Mildly elevated troponin - probably due to PAF and renal failure (no clinical evidence of acute coronary syndrome) CAD. - MPI of 11/11/18: apical infarction w/o ischemia; LVEF 46% - Echo of 11/11/18: LVEF 40-45%, apical akinesis, RVSP 30 mmHg - Cardiac cath of January 08, 2019: Diffuse moderate coronary plaque and calcification Patent stented midvessel segment in LAD. Multiple 50% stenoses in the LAD 50%; 50% mid vessel stenosis of the left cx artery; patent stents in the prox and mid RCA and multiple 40-50% stenoses in the RCA; LVEDP 9 mmHg; LVEF 50- 55% H/O symptomatic bradycardia - PPM implant at [facility] in June 2017 for marked bradycardia, followed by Dr Torres in [place], [place] H/o PAF - documented during hospitalization of June 2017 at [facility] (in the setting of ac renal failure) - Eliquis started at that time, but was stopped during hospitalization at [facility] (Dr Torres) - History of isolated premature atrial and ventricular contractions. - per ED report at [facility] he has dx with episodes of PAF on interrogation of last week at Dr. 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 - Gastroesophageal reflux. Ortho - Degenerative joint disease. -Chronic bilateral drop foot (wears braces) Sleep apnea - being treated with C-PAP therapy. Hypertension - under good control. Gout - managed by PCP Hyperlipidemia - being treated with lovastatin - followed by PCP Borderline maturity onset diabetes mellitus. - managed by PCP Obesity - with a body mass index of approximately 31 Chronic poor balance and bilateral foot drop - ambulates with the help of a walker - has bilateral leg braces PAD - Scattered atherosclerotic disease of the bilateral lower extremity arterial systems, no hemodynamically significant stenosis per bilateral lower extremity arterial Doppler from 04/30/2012. - U/S from 11-24-14 showed no sonographic evidence for hemodynamically significant stenosis or arterial occlusion within either leg. 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 His presenting and main complaint is involuntary, choreiform movements. These are being evaluated and treated by the Hospitalist Service (Dr Pérez) * We recommend consideration of transfer to a tertiary care facility with Neuro services if choreiform movement remain undiagnosed/untreated - resolved at this time * Cardiac recs: apixaban because of PAF; aspirin because of h/o moderate CAD; continue antihypertensive regimen; monitor labs and correct abnormalities * Stop Plavix and continue ASA; having him on ASA, Plavix and Eliquis increases his risk of bleeding DELMY ESTRADA [facility] August 22, 2022 10:12
[2022-08-22 11:30] VITALS: BP 122/58
--- NOTE | 2022-08-22 12:27 | Discharge Summary ---
Diagnosis/Chief Complaint Date of Admission August 21, 2022 at 12:33 Date of Discharge Discharge Date: August 22, 2022 Discharge Diagnosis Assessment: Chest pain with elevated troponin Muscle spasms Atrial fibrillation CAD previous stents Hypertension Hyperlipidemia Advanced age Plan: Trend troponin Cardiology evaluation Monitor muscle spasms Discharge Summary Discharge Physical Examination Allergies: Coded Allergies: metformin (Verified Adverse Reaction, Mild, Diarrhea, 08/21/22) Vitals & I&Os Vital Signs Date Time Temp Pulse Resp B/P (MAP) Pulse Ox O2 Delivery O2 Flow Rate FiO2 08/22/22 14:59 36.3 69 20 122/58 93 Room Air 0.00 08/21/22 19:43 21 General Appearance: Alert, Oriented X3, Cooperative HEENT: PERRLA Respiratory: Clear to Auscultation Cardiovascular: Regular Rate Psych/Mental Status: Mental Status NL Hospital Course Was the Problem List Reviewed?: Yes Patient had an uncomplicated overnight hospital course after he was admitted for atypical chest pain with slightly elevated troponin. Cardiology evaluated him to have no evidence of acute coronary syndrome and he was discharged home. Muscle spasms that had a heard had resolved by time of discharge and antibiotics will be maintained for his chronic foot ulcer.I did speak with son and updated him. Labs (last 24 hrs) Laboratory Tests 08/21/22 10:19: White Blood Count 8.6, Red Blood Count 3.86L, Hemoglobin 12.1L, Hematocrit 37L, Mean Corpuscular Volume 95, Mean Corpuscular Hemoglobin 31, Mean Corpuscular Hemoglobin Concent 33, Red Cell Distribution Width 13.6, Platelet Count 277, Mean Platelet Volume 9.9, Immature Granulocyte % (Auto) 1, Neutrophils (%) (Auto) 63, Lymphocytes (%) (Auto) 25, Monocytes (%) (Auto) 6, Eosinophils (%) (Auto) 5, Basophils (%) (Auto) 1, Neutrophils # (Auto) 5.3, Lymphocytes # (Auto) 2.2, Monocytes # (Auto) 0.5, Eosinophils # (Auto) 0.4H, Basophils # (Auto) 0.1, Immature Granulocyte # (Auto) 0.1, Sodium Level 140, Potassium Level 4.3, Chloride Level 107, Carbon Dioxide Level 21, Anion Gap 12, Blood Urea Nitrogen 31H, Creatinine 1.48H, Estimat Glomerular Filtration Rate 45, BUN/Creatinine Ratio 21, Glucose Level 119H, Calcium Level 9.2, Corrected Calcium 9.4, Total Bilirubin 0.5, Aspartate Amino Transf (AST/SGOT) 20, Alanine Aminotransferase (ALT/SGPT) 17, Alkaline Phosphatase 58, Troponin I 0.082H, Total Protein 7.2, Albumin 3.7, Thyroid Stimulating Hormone (TSH) 0.66 08/21/22 20:12: Glucometer 174H 08/22/22 01:21: Glucometer 222H 08/22/22 05:28: White Blood Count 7.3, Red Blood Count 3.62L, Hemoglobin 11.3L, Hematocrit 34L, Mean Corpuscular Volume 95, Mean Corpuscular Hemoglobin 31, Mean Corpuscular Hemoglobin Concent 33, Red Cell Distribution Width 13.5, Platelet Count 267, Mean Platelet Volume 9.9, Immature Granulocyte % (Auto) 0, Neutrophils (%) (Auto) 58, Lymphocytes (%) (Auto) 26, Monocytes (%) (Auto) 9, Eosinophils (%) (Auto) 6, Basophils (%) (Auto) 1, Neutrophils # (Auto) 4.3, Lymphocytes # (Auto) 1.9, Monocytes # (Auto) 0.7, Eosinophils # (Auto) 0.4H, Basophils # (Auto) 0.1, Immature Granulocyte # (Auto) 0.0, Sodium Level 139, Potassium Level 3.8, Chloride Level 106, Carbon Dioxide Level 22, Anion Gap 11, Blood Urea Nitrogen 26H, Creatinine 1.39H, Estimat Glomerular Filtration Rate 48, BUN/Creatinine Ratio 19, Glucose Level 171H, Calcium Level 8.7, Corrected Calcium 9.3, Total Bilirubin 0.5, Aspartate Amino Transf (AST/SGOT) 13, Alanine Aminotransferase (ALT/SGPT) 13, Alkaline Phosphatase 54, Troponin I 0.109H, Total Protein 6.2L, Albumin 3.3, Triglycerides Level 167H, Cholesterol Level 156, LDL Cholesterol Direct 92, VLDL Cholesterol 33, HDL Cholesterol 34L Pending Labs Laboratory Tests 08/21/22 10:19: White Blood Count 8.6, Red Blood Count 3.86, Hemoglobin 12.1, Hematocrit 37, Mean Corpuscular Volume 95, Mean Corpuscular Hemoglobin 31, Mean Corpuscular Hemoglobin Concent 33, Red Cell Distribution Width 13.6, Platelet Count 277, Mean Platelet Volume 9.9, Immature Granulocyte % (Auto) 1, Neutrophils (%) (Auto) 63, Lymphocytes (%) (Auto) 25, Monocytes (%) (Auto) 6, Eosinophils (%) (Auto) 5, Basophils (%) (Auto) 1, Neutrophils # (Auto) 5.3, Lymphocytes # (Auto) 2.2, Monocytes # (Auto) 0.5, Eosinophils # (Auto) 0.4, Basophils # (Auto) 0.1, Immature Granulocyte # (Auto) 0.1, Sodium Level 140, Potassium Level 4.3, Chloride Level 107, Carbon Dioxide Level 21, Anion Gap 12, Blood Urea Nitrogen 31, Creatinine 1.48, Estimat Glomerular Filtration Rate 45, BUN/Creatinine Ratio 21, Glucose Level 119, Calcium Level 9.2, Corrected Calcium 9.4, Total Bilirubin 0.5, Aspartate Amino Transf (AST/SGOT) 20, Alanine Aminotransferase (ALT/SGPT) 17, Alkaline Phosphatase 58, Troponin I 0.082, Total Protein 7.2, Albumin 3.7, Thyroid Stimulating Hormone (TSH) 0.66 08/21/22 20:12: Glucometer 174 08/22/22 01:21: Glucometer 222 08/22/22 05:28: White Blood Count 7.3, Red Blood Count 3.62, Hemoglobin 11.3, Hematocrit 34, Mean Corpuscular Volume 95, Mean Corpuscular Hemoglobin 31, Mean Corpuscular Hemoglobin Concent 33, Red Cell Distribution Width 13.5, Platelet Count 267, Mean Platelet Volume 9.9, Immature Granulocyte % (Auto) 0, Neutrophils (%) (Auto) 58, Lymphocytes (%) (Auto) 26, Monocytes (%) (Auto) 9, Eosinophils (%) (Auto) 6, Basophils (%) (Auto) 1, Neutrophils # (Auto) 4.3, Lymphocytes # (Auto) 1.9, Monocytes # (Auto) 0.7, Eosinophils # (Auto) 0.4, Basophils # (Auto) 0.1, Immature Granulocyte # (Auto) 0.0, Sodium Level 139, Potassium Level 3.8, Chloride Level 106, Carbon Dioxide Level 22, Anion Gap 11, Blood Urea Nitrogen 26, Creatinine 1.39, Estimat Glomerular Filtration Rate 48, BUN/Creatinine Ratio 19, Glucose Level 171, Calcium Level 8.7, Corrected Calcium 9.3, Total Bilirubin 0.5, Aspartate Amino Transf (AST/SGOT) 13, Alanine Aminotransferase (ALT/SGPT) 13, Alkaline Phosphatase 54, Troponin I 0.109, Total Protein 6.2, Albumin 3.3, Triglycerides Level 167, Cholesterol Level 156, LDL Cholesterol Direct 92, VLDL Cholesterol 33, HDL Cholesterol 34 Discharge Home Medications: Active Scripts Active Reported Cetirizine HCl 10 Mg Tablet 10 Mg PO DAILY Vitamin D3 (Cholecalciferol (Vitamin D3)) 25 Mcg (1000 Unit) Tablet 25 Mcg PO DAILY Tylenol (Acetaminophen) 325 Mg Tablet 325 Mg PO QID Timolol Maleate 0.5% (Timolol Maleate) 0.5 % Drops 1 Applic TOP Q48H APPLY TO LEFT 2ND TOE ONCE TIME A DAY EVERY 2 DAYS Famotidine 20 Mg Tablet 20 Mg PO DAILY Nystatin 100,000 Unit/Gram Cream..g. 1 Applic TOP QID APPLY TO GROIN Miralax (Polyethylene Glycol 3350) 17 Gram Powd.pack 8.5 Gm PO DAILY PRN TAKES OF A SCOOP Losartan Potassium 25 Mg Tablet 25 Mg PO DAILY HOLD FOR SBP<100 OR HR <60 Furosemide 20 Mg Tablet 20 Mg PO DAILY Lantus Solostar (Insulin Glargine,Hum.rec.anlog) 100 Unit/Ml (3 Ml) Insuln.pen 17 Units SC HS Imodium A-D (Loperamide HCl) 2 Mg Capsule 2-4 Mg PO UD PRN MDD 8MG Guaifenesin 100 Mg/5 Ml Liquid 5 Ml PO Q4H PRN Mucinex (Guaifenesin) 600 Mg Tab.er.12h 600 Mg PO Q12H PRN Gabapentin 100 Mg Capsule 200 Mg PO HS TAKES 2 (100NG) CAPS Escitalopram Oxalate 5 Mg Tablet 5 Mg PO HS Vitamin B-12 (Cyanocobalamin (Vitamin B-12)) 1,000 Mcg Tablet 1,000 Mcg PO DAILY Cough Drops (Menthol) 5.8 Mg Lozenge 5.8 Mg MM EVERY 2 HOURS PRN Amox Tr-K Clv 875-125 mg Tab (Amoxicillin/Potassium Clav) 875 Mg-125 Mg Tablet 1 Ea PO BID FILLED 08-13-2022 #28/14 DAY SUPPLY Acidophilus (Lactobacillus Acidophilus) 1 Each Capsule 1 Each PO BID Amlodipine Besylate 5 Mg Tablet 5 Mg PO BID Flomax (Tamsulosin HCl) 0.4 Mg Cap 0.4 Mg PO DAILY Tylenol (Acetaminophen) 325 Mg Tablet 325 Mg PO Q6H PRN Clopidogrel (Clopidogrel Bisulfate) 75 Mg Tablet 75 Mg PO DAILY Glimepiride 4 Mg Tablet 4 Mg PO DAILY Aspirin EC (Aspirin) 81 Mg Tablet.dr 81 Mg PO DAILY Allopurinol 100 Mg Tablet 100 Mg PO BID Finasteride 5 Mg Tablet 5 Mg PO DAILY Instructions to patient/family Please see electronic discharge instructions given to patient. SAMANTHA ALMAZAN DO August 22, 2022 12:27
[2022-08-22 14:59] VITALS: BP 122/58
--- NOTE | 2022-08-22 17:58 | Progress Note - Cardiology ---
Cardiology SOAP Progress Note Subjective: Involuntary movement have resolved. Feels well. No cp or palp or syncope. Wishes to go home Objective: I&O/Vital Signs 08/22/22 08/22/22 08/22/22 08/22/22 07:15 08:00 08:20 11:30 Temp 36.5 36.3 Pulse 70 77 69 Resp 20 20 B/P (MAP) 157/78 (104) 122/58 (79) Pulse Ox 93 93 O2 Delivery Room Air Room Air Room Air 08/22/22 08/22/22 13:29 14:59 Temp 36.3 Pulse 69 69 Resp 20 B/P (MAP) 122/58 Pulse Ox 93 O2 Delivery Room Air O2 Flow Rate 0.00 08/22/22 00:00 Intake Total 1040 ml Output Total 1350 ml Balance -310 ml Weight (Pounds): 207 Weight (Ounces): 7.0 Weight (Calculated Kilograms): 94.662812 Constitutional: AAO x 3, well-developed, well-nourished Respiratory: No accessory muscle use, No respiratory distress; chest expansion is symmetric, chest is bilaterally symmetric, lungs clear to auscultation Cardiovascular: regular rate-rhythm; No JVD; S1 and S2 Gastrointestional: No tender; soft, round; No guarding; audible bowel sounds Extremities: no lower extremity edema bilateral Neurologic/Psychiatric: other (moves all extremities) Skin: No rash on exposed areas, No ulcerations on exposed areas Results/Procedures: Labs Laboratory Tests 08/21/22 20:12: Glucometer 174H 08/22/22 01:21: Glucometer 222H 08/22/22 05:28: White Blood Count 7.3, Red Blood Count 3.62L, Hemoglobin 11.3L, Hematocrit 34L, Mean Corpuscular Volume 95, Mean Corpuscular Hemoglobin 31, Mean Corpuscular Hemoglobin Concent 33, Red Cell Distribution Width 13.5, Platelet Count 267, Mean Platelet Volume 9.9, Immature Granulocyte % (Auto) 0, Neutrophils (%) (Auto) 58, Lymphocytes (%) (Auto) 26, Monocytes (%) (Auto) 9, Eosinophils (%) (Auto) 6, Basophils (%) (Auto) 1, Neutrophils # (Auto) 4.3, Lymphocytes # (Auto) 1.9, Monocytes # (Auto) 0.7, Eosinophils # (Auto) 0.4H, Basophils # (Auto) 0.1, Immature Granulocyte # (Auto) 0.0, Sodium Level 139, Potassium Level 3.8, Chloride Level 106, Carbon Dioxide Level 22, Anion Gap 11, Blood Urea Nitrogen 26H, Creatinine 1.39H, Estimat Glomerular Filtration Rate 48, BUN/Creatinine Ratio 19, Glucose Level 171H, Calcium Level 8.7, Corrected Calcium 9.3, Total Bilirubin 0.5, Aspartate Amino Transf (AST/SGOT) 13, Alanine Aminotransferase (ALT/SGPT) 13, Alkaline Phosphatase 54, Troponin I 0.109H, Total Protein 6.2L, Albumin 3.3, Triglycerides Level 167H, Cholesterol Level 156, LDL Cholesterol Direct 92, VLDL Cholesterol 33, HDL Cholesterol 34L A/P: Assessment: Choreiform movements of undetermined etiology - evaluated and managed by Dr Pérez - resolved Mildly elevated troponin - probably due to PAF and renal failure (no clinical evidence of acute coronary syndrome) CAD. - MPI of 11/11/18: apical infarction w/o ischemia; LVEF 46% - Echo of 11/11/18: LVEF 40-45%, apical akinesis, RVSP 30 mmHg - Cardiac cath of January 08, 2019: Diffuse moderate coronary plaque and calcification Patent stented midvessel segment in LAD. Multiple 50% stenoses in the LAD 50%; 50% mid vessel stenosis of the left cx artery; patent stents in the prox and mid RCA and multiple 40-50% stenoses in the RCA; LVEDP 9 mmHg; LVEF 50- 55% H/O symptomatic bradycardia - PPM implant at [facility] in June 2017 for marked bradycardia, followed by Dr Torres in [place], [place] H/o PAF - documented during hospitalization of June 2017 at [facility] (in the setting of ac renal failure) - Eliquis started at that time, but was stopped during hospitalization at [facility] (Dr Torres) - History of isolated premature atrial and ventricular contractions. - per ED report at [facility] he has dx with episodes of PAF on interrogation of last week at Dr. 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 - Gastroesophageal reflux. Ortho - Degenerative joint disease. -Chronic bilateral drop foot (wears braces) Sleep apnea - being treated with C-PAP therapy. Hypertension - under good control. Gout - managed by PCP Hyperlipidemia - being treated with lovastatin - followed by PCP Borderline maturity onset diabetes mellitus. - managed by PCP Obesity - with a body mass index of approximately 31 Chronic poor balance and bilateral foot drop - ambulates with the help of a walker - has bilateral leg braces PAD - Scattered atherosclerotic disease of the bilateral lower extremity arterial systems, no hemodynamically significant stenosis per bilateral lower extremity arterial Doppler from 04/30/2012. - U/S from 11-24-14 showed no sonographic evidence for hemodynamically significant stenosis or arterial occlusion within either leg. 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
== END 2022-08-22 12:26 ==
LOC: EDUNIT# 10:10 → ER 10:12 → 4TH 12:33 → UNDOADMOB 12:33 → 4TH 12:50 → UNDODISOB 08-22 15:06
PROVIDERS: ADMIT Internal Medicine; ATTEND Internal Medicine
DX: R07.9 Chest pain, unspecified (principal); R77.8 Other specified abnormalities of plasma proteins; M62.838 Other muscle spasm; I48.91 Unspecified atrial fibrillation; I25.10 Atherosclerotic heart disease of native coronary artery without angina pectoris; I12.9 Hypertensive chronic kidney disease with stage 1 through stage 4 chronic kidney disease, or unspecified chronic kidney disease; I48.0 Paroxysmal atrial fibrillation; I73.9 Peripheral vascular disease, unspecified; E78.5 Hyperlipidemia, unspecified; G25.5 Other chorea; I65.29 Occlusion and stenosis of unspecified carotid artery; K52.9 Noninfective gastroenteritis and colitis, unspecified; K21.9 Gastro-esophageal reflux disease without esophagitis; M19.90 Unspecified osteoarthritis, unspecified site; M21.372 Foot drop, left foot; M21.371 Foot drop, right foot; G47.30 Sleep apnea, unspecified; M10.9 Gout, unspecified; E66.9 Obesity, unspecified; N18.32 Chronic kidney disease, stage 3b; Z95.0 Presence of cardiac pacemaker; Z79.01 Long term (current) use of anticoagulants; Z99.81 Dependence on supplemental oxygen; Z68.31 Body mass index [BMI] 31.0-31.9, adult; Z87.891 Personal history of nicotine dependence; Z95.5 Presence of coronary angioplasty implant and graft
CPT/HCPCS: 36415; 71045; 80053; 80061; 82947; 84443; 84484; 85025; 93005; G0378

== ENCOUNTER → 2022-08-28 | Outpatient (CLI) | payer MEDICARE, OTHER ==
[~2022-08-28] MED LIST changes: +AMOX1TAB12 PO; +CETI10TA17 PO; +CHOL-34 PO; +ESCI5TAB16 PO; +FAMO20TA5 PO; +FURO20TA4 PO; +GUAI100L13 PO; +GUAI600T43 PO; +INSU100I10 SC; +LACT1CAP28 PO; +LOPE-175 PO; +LOSA25TA41 PO; +NYST15CR35 TOP; +POLY17PO6 PO; +TIMO5DRO16 TOP; +[UNRECOGNIZED DRUG - CODE] MM
== END ==
LOC: WOUNDCARE 11:03
PROVIDERS: ATTEND Family Medicine
DX: L97.522 Non-pressure chronic ulcer of other part of left foot with fat layer exposed (principal); E11.621 Type 2 diabetes mellitus with foot ulcer; E11.40 Type 2 diabetes mellitus with diabetic neuropathy, unspecified; E11.65 Type 2 diabetes mellitus with hyperglycemia; E11.22 Type 2 diabetes mellitus with diabetic chronic kidney disease; N18.30 Chronic kidney disease, stage 3 unspecified; I70.248 Atherosclerosis of native arteries of left leg with ulceration of other part of lower leg; E55.9 Vitamin D deficiency, unspecified; D51.8 Other vitamin B12 deficiency anemias; E66.01 Morbid (severe) obesity due to excess calories; Z68.33 Body mass index [BMI] 33.0-33.9, adult; I89.0 Lymphedema, not elsewhere classified; E11.52 Type 2 diabetes mellitus with diabetic peripheral angiopathy with gangrene; I96 Gangrene, not elsewhere classified
CPT/HCPCS: 11042; A6197; G0463

== ENCOUNTER → 2022-09-04 | Outpatient (CLI) | payer MEDICARE, OTHER ==
--- NOTE | 2022-09-04 17:49 | Diagnostic Imaging Report ---
Exam: Ankle arm indices. Comparison MARCUS on 01/22/2017 Findings/ impression: Abnormal indices within the left posterior tibial artery suggestive of moderate peripheral artery disease in the left lower extremity. Consider further workup with left lower extremity Doppler.. ABIs are as below. RIGHT: Posterior tibial: 0.9 Dorsalis pedis: 1.0 LEFT Posterior tibial: 0.6 Dorsalis pedis: Not registered MARCUS values: above 1.2: Abnormal vessel hardening from peripheral vascular disease 1.0-1.2: Normal 0.9-1.0: Acceptable 0.8-0.9: Some arterial disease 0.5-0.8: Moderate arterial disease Under 0.5: Severe arterial disease Dictated by: Dictated on workstation # [id number]
== END ==
LOC: RAD 09:20
PROVIDERS: ATTEND Family Medicine
DX: I70.245 Atherosclerosis of native arteries of left leg with ulceration of other part of foot (principal); L97.522 Non-pressure chronic ulcer of other part of left foot with fat layer exposed; E11.621 Type 2 diabetes mellitus with foot ulcer; E11.65 Type 2 diabetes mellitus with hyperglycemia; E11.40 Type 2 diabetes mellitus with diabetic neuropathy, unspecified; E11.22 Type 2 diabetes mellitus with diabetic chronic kidney disease; N18.30 Chronic kidney disease, stage 3 unspecified; D51.8 Other vitamin B12 deficiency anemias; E55.9 Vitamin D deficiency, unspecified; E66.01 Morbid (severe) obesity due to excess calories; I89.0 Lymphedema, not elsewhere classified; Z68.33 Body mass index [BMI] 33.0-33.9, adult
CPT/HCPCS: 93923

== ENCOUNTER → 2022-09-04 | Outpatient (CLI) | payer MEDICARE, OTHER | LOC: WOUNDCARE 10:16 | PROVIDERS: ATTEND Family Medicine | DX: L97.522 Non-pressure chronic ulcer of other part of left foot with fat layer exposed (principal); E11.621 Type 2 diabetes mellitus with foot ulcer; E11.40 Type 2 diabetes mellitus with diabetic neuropathy, unspecified; E11.65 Type 2 diabetes mellitus with hyperglycemia; E11.22 Type 2 diabetes mellitus with diabetic chronic kidney disease; N18.30 Chronic kidney disease, stage 3 unspecified; I70.245 Atherosclerosis of native arteries of left leg with ulceration of other part of foot; E55.9 Vitamin D deficiency, unspecified; D51.9 Vitamin B12 deficiency anemia, unspecified; E66.01 Morbid (severe) obesity due to excess calories; Z68.33 Body mass index [BMI] 33.0-33.9, adult; I89.0 Lymphedema, not elsewhere classified; E11.52 Type 2 diabetes mellitus with diabetic peripheral angiopathy with gangrene; I96 Gangrene, not elsewhere classified | CPT/HCPCS: 17250; G0463 ==

== ENCOUNTER → 2022-09-11 | Outpatient (CLI) | payer MEDICARE, OTHER | LOC: WOUNDCARE 09:37 | PROVIDERS: ATTEND Family Medicine | DX: E11.621 Type 2 diabetes mellitus with foot ulcer (principal); L97.522 Non-pressure chronic ulcer of other part of left foot with fat layer exposed; E11.65 Type 2 diabetes mellitus with hyperglycemia; E11.40 Type 2 diabetes mellitus with diabetic neuropathy, unspecified; I70.245 Atherosclerosis of native arteries of left leg with ulceration of other part of foot; E11.22 Type 2 diabetes mellitus with diabetic chronic kidney disease; N18.30 Chronic kidney disease, stage 3 unspecified; D51.8 Other vitamin B12 deficiency anemias; E55.9 Vitamin D deficiency, unspecified; E66.01 Morbid (severe) obesity due to excess calories; Z68.33 Body mass index [BMI] 33.0-33.9, adult; I89.0 Lymphedema, not elsewhere classified; E11.52 Type 2 diabetes mellitus with diabetic peripheral angiopathy with gangrene | CPT/HCPCS: 11042; G0463 ==

== ENCOUNTER → 2022-09-18 | Outpatient (CLI) | payer MEDICARE, OTHER | LOC: WOUNDCARE 10:04 | PROVIDERS: ATTEND Family Medicine | DX: E11.621 Type 2 diabetes mellitus with foot ulcer (principal); E11.65 Type 2 diabetes mellitus with hyperglycemia; E11.40 Type 2 diabetes mellitus with diabetic neuropathy, unspecified; E11.52 Type 2 diabetes mellitus with diabetic peripheral angiopathy with gangrene; E11.22 Type 2 diabetes mellitus with diabetic chronic kidney disease; N18.30 Chronic kidney disease, stage 3 unspecified; I70.245 Atherosclerosis of native arteries of left leg with ulceration of other part of foot; L97.522 Non-pressure chronic ulcer of other part of left foot with fat layer exposed; D51.8 Other vitamin B12 deficiency anemias; E55.9 Vitamin D deficiency, unspecified; I89.0 Lymphedema, not elsewhere classified; E66.01 Morbid (severe) obesity due to excess calories; Z68.33 Body mass index [BMI] 33.0-33.9, adult | CPT/HCPCS: 11042; G0463 ==

== ENCOUNTER → 2022-10-02 | Outpatient (CLI) | payer MEDICARE, OTHER | LOC: WOUNDCARE 09:57 | PROVIDERS: ATTEND Family Medicine | DX: E11.621 Type 2 diabetes mellitus with foot ulcer (principal); E11.40 Type 2 diabetes mellitus with diabetic neuropathy, unspecified; E11.65 Type 2 diabetes mellitus with hyperglycemia; I70.245 Atherosclerosis of native arteries of left leg with ulceration of other part of foot; L97.522 Non-pressure chronic ulcer of other part of left foot with fat layer exposed; E11.22 Type 2 diabetes mellitus with diabetic chronic kidney disease; N18.30 Chronic kidney disease, stage 3 unspecified; D51.8 Other vitamin B12 deficiency anemias; E55.9 Vitamin D deficiency, unspecified; E66.01 Morbid (severe) obesity due to excess calories; I89.0 Lymphedema, not elsewhere classified; E11.52 Type 2 diabetes mellitus with diabetic peripheral angiopathy with gangrene; Z68.33 Body mass index [BMI] 33.0-33.9, adult | CPT/HCPCS: 11042; G0463 ==

== ENCOUNTER → 2022-10-09 | Outpatient (CLI) | payer MEDICARE, OTHER ==
--- NOTE | 2022-10-09 18:13 | Diagnostic Imaging Report ---
PROCEDURE: CT left lower extremity without contrast. TECHNIQUE: Multiple contiguous axial images were obtained through the left lower extremity without the use of intravenous contrast. Sagittal and coronal reformations were then performed. Auto Exposure Controls were utilized during the CT exam to meet ALARA standards for radiation dose reduction. INDICATION: Nonhealing wound of the 2nd toe COMPARISON: None available. FINDINGS: There are no erosions within the phalanges or metatarsals. No fracture. Diffuse osseous stimulation could be from disuse or osteopenia. Moderate degenerative arthritis of 1st MTP. Subcutaneous edema is present throughout the dorsal aspect of foot. Severe fatty atrophy of intrinsic musculature of foot is likely due to chronic denervation injury, frequently seen with long-standing diabetes. IMPRESSION: 1. No CT features of osteomyelitis. Dictated by: Dictated on workstation # [id number]
== END ==
LOC: RAD 13:21
PROVIDERS: ATTEND Family Medicine
DX: E11.621 Type 2 diabetes mellitus with foot ulcer (principal); E11.40 Type 2 diabetes mellitus with diabetic neuropathy, unspecified; E11.65 Type 2 diabetes mellitus with hyperglycemia; I70.245 Atherosclerosis of native arteries of left leg with ulceration of other part of foot; E11.22 Type 2 diabetes mellitus with diabetic chronic kidney disease; N18.30 Chronic kidney disease, stage 3 unspecified; D51.8 Other vitamin B12 deficiency anemias; L97.522 Non-pressure chronic ulcer of other part of left foot with fat layer exposed; E55.9 Vitamin D deficiency, unspecified; E66.01 Morbid (severe) obesity due to excess calories; I89.0 Lymphedema, not elsewhere classified; Z68.33 Body mass index [BMI] 33.0-33.9, adult
CPT/HCPCS: 73700

== ENCOUNTER → 2022-10-16 | Outpatient (CLI) | payer MEDICARE, OTHER | LOC: WOUNDCARE 09:51 | PROVIDERS: ATTEND Family Medicine | DX: E11.621 Type 2 diabetes mellitus with foot ulcer (principal); L97.526 Non-pressure chronic ulcer of other part of left foot with bone involvement without evidence of necrosis; E11.40 Type 2 diabetes mellitus with diabetic neuropathy, unspecified; E11.65 Type 2 diabetes mellitus with hyperglycemia; I70.244 Atherosclerosis of native arteries of left leg with ulceration of heel and midfoot; E11.22 Type 2 diabetes mellitus with diabetic chronic kidney disease; N18.30 Chronic kidney disease, stage 3 unspecified; E55.9 Vitamin D deficiency, unspecified; D51.8 Other vitamin B12 deficiency anemias; E66.01 Morbid (severe) obesity due to excess calories; I89.0 Lymphedema, not elsewhere classified; E11.52 Type 2 diabetes mellitus with diabetic peripheral angiopathy with gangrene; Z68.33 Body mass index [BMI] 33.0-33.9, adult | CPT/HCPCS: 11042; 87070; 87077; 87186; 87205; A6260; G0463 ==

== ENCOUNTER 2022-10-20 16:39 | Emergency (ER) | payer MEDICARE, OTHER ==
[~2022-10-20] VITALS: Ht 175 cm; Wt 97.5 kg
--- NOTE | 2022-10-20 16:52 | ED General ---
General Chief Complaint: General Problems/Pain Stated Complaint: SHAKES Source of Information: Patient Exam Limitations: No Limitations History of Present Illness Date Seen by Provider: Oct 20, 2022 Time Seen by Provider: 16:40 Initial Comments 87-year-old male with cellulitis with MRSA infection in his left second toe presents for spasms in his chest that are hiccup like. He states this happened to him once before and it was thought to been a reaction to an antibiotic. Notably he was on Augmentin until yesterday when his cultures came back with MRSA and he was subsequently switched to doxycycline. He does not know how many doses he is taken at this point. His shaking started this morning and has been persistent throughout the day. No fevers or chills he denies any chest pain, shortness of breath, cough, abdominal pain or changes in bowel or bladder habits. He is diabetic and his blood sugar was in the 200s. All other systems reviewed and negative except documented per HPI. Voice recognition software was used to help create this chart Allergies and Home Medications Allergies Coded Allergies: metformin (Verified Adverse Reaction, Mild, Diarrhea, 08/21/22) Patient Home Medication List Home Medication List Reviewed: Yes Acetaminophen (Tylenol) 325 Mg Tablet, 325 MG PO Q6H PRN for PAIN-MILD (1-4), (Reported) Entered as Reported by: CHONG BANUELOS on 07/09/17 0907 Acetaminophen (Tylenol) 325 Mg Tablet, 325 MG PO QID, (Reported) Entered as Reported by: MANJU REINOSO on 08/21/22 1602 Allopurinol (Allopurinol) 100 Mg Tablet, 100 MG PO BID, (Reported) Entered as Reported by: ELEANOR HILL on 01/01/17 1654 Amlodipine Besylate (Amlodipine Besylate) 5 Mg Tablet, 5 MG PO BID, (Reported) Entered as Reported by: CHONG BANUELOS on 08/21/18 1256 Amoxicillin/Potassium Clav (Amox Tr-K Clv 875-125 mg Tab) 875 Mg-125 Mg Tablet, 1 EA PO BID, (Reported) Entered as Reported by: MANJU REINOSO on 08/21/22 1602 Aspirin (Aspirin EC) 81 Mg Tablet.dr, 81 MG PO DAILY, (Reported) Entered as Reported by: ELEANOR HILL on 01/01/17 1654 Cetirizine HCl (Cetirizine HCl) 10 Mg Tablet, 10 MG PO DAILY, (Reported) Entered as Reported by: MANJU REINOSO on 08/21/22 160 Cholecalciferol (Vitamin D3) (Vitamin D3) 25 Mcg (1000 Unit) Tablet, 25 MCG PO DAILY, (Reported) Entered as Reported by: MANJU REINOSO on 08/21/22 160 Clopidogrel Bisulfate (Clopidogrel) 75 Mg Tablet, 75 MG PO DAILY, (Reported) Entered as Reported by: CHONG BANUELOS on 07/09/17 0907 Cyanocobalamin (Vitamin B-12) (Vitamin B-12) 1,000 Mcg Tablet, 1,000 MCG PO DAILY, (Reported) Entered as Reported by: MANJU REINOSO on 08/21/22 160 Escitalopram Oxalate (Escitalopram Oxalate) 5 Mg Tablet, 5 MG PO HS, (Reported) Entered as Reported by: MANJU REINOSO on 08/21/22 160 Famotidine (Famotidine) 20 Mg Tablet, 20 MG PO DAILY, (Reported) Entered as Reported by: MANJU REINOSO on 08/21/22 160 Finasteride (Finasteride) 5 Mg Tablet, 5 MG PO DAILY, (Reported) Entered as Reported by: BRIAN FLETCHER on 01/01/17 1008 Furosemide (Furosemide) 20 Mg Tablet, 20 MG PO DAILY, (Reported) Entered as Reported by: MANJU REINOSO on 08/21/22 160 Gabapentin (Gabapentin) 100 Mg Capsule, 200 MG PO HS, (Reported) Entered as Reported by: MANJU REINOSO on 08/21/22 160 Glimepiride (Glimepiride) 4 Mg Tablet, 4 MG PO DAILY, (Reported) Entered as Reported by: ELEANOR HILL on 01/01/17 1654 Guaifenesin (Mucinex) 600 Mg Tab.er.12h, 600 MG PO Q12H PRN for COUGH, (Reported) Entered as Reported by: MANJU REINOSO on 08/21/22 160 Guaifenesin (Guaifenesin) 100 Mg/5 Ml Liquid, 5 ML PO Q4H PRN for COUGH, (Reported) Entered as Reported by: MANJU REINOSO on 08/21/22 160 Insulin Glargine,Hum.rec.anlog (Lantus Solostar) 100 Unit/Ml (3 Ml) Insuln.pen, 17 UNITS SC HS, (Reported) Entered as Reported by: MANJU REINOSO on 08/21/22 160 Lactobacillus Acidophilus (Acidophilus) 1 Each Capsule, 1 EACH PO BID, (Reported) Entered as Reported by: MANJU REINOSO on 08/21/22 160 Loperamide HCl (Imodium A-D) 2 Mg Capsule, 2-4 MG PO UD PRN for DIARRHEA, (Reported) Entered as Reported by: MANJU REINOSO on 08/21/22 160 Losartan Potassium (Losartan Potassium) 25 Mg Tablet, 25 MG PO DAILY, (Reported) Entered as Reported by: MANJU REINOSO on 08/21/22 160 Menthol (Cough Drops) 5.8 Mg Lozenge, 5.8 MG MM EVERY 2 HOURS PRN for COUGH, (Reported) Entered as Reported by: MANJU REINOSO on 08/21/221601 Nystatin (Nystatin) 100,000 Unit/Gram Cream..g., 1 APPLIC TOP QID, (Reported) Entered as Reported by: MANJU REINOSO on 08/21/22 160 Polyethylene Glycol 3350 (Miralax) 17 Gram Powd.pack, 8.5 GM PO DAILY PRN for CONSTIPATION-2ND LINE, (Reported) Entered as Reported by: MANJU REINOSO on 08/21/22 160 Tamsulosin HCl (Flomax) 0.4 Mg Cap, 0.4 MG PO DAILY, (Reported) Entered as Reported by: CHONG BANUELOS on 08/21/18 1256 Timolol Maleate (Timolol Maleate 0.5%) 0.5 % Drops, 1 APPLIC TOP Q48H, (Reported) Entered as Reported by: MANJU REINOSO on 08/21/22 160 Review of Systems Review of Systems Constitutional: see HPI Past Jzmdojb-Hturuj-Ptgvcg Hx Patient Social History Tobacco Use?: No Substance use?: No Alcohol Use?: No Pt feels they are or have been: No Immunizations Up To Date Tetanus Booster (TDap): Unknown Seasonal Allergies Seasonal Allergies: No Past Medical History Surgery/Hospitalization HX: PMH: DM-HYPERGLYCEMIA, DM- NEUROPATHY, DIABETIC ULCER, LYPHEDEMA, B12 DEFICIEENCY, DEPRESSION, HTN, CAD, OSTEOARTHRITIS, GOUT, CHRONIC KIDNEY DISEASE, BPH, Surgeries: Yes (R foot screw, ) Appendectomy, Coronary Stent, Gallbladder, Orthopedic, Pacemaker, Tonsillectomy Respiratory: Yes Sleep Apnea Currently Using CPAP: Yes Cardiac: Yes (pacemaker) Atrial Fibrillation, Coronary Artery Disease, High Cholesterol, Hypertension, Irregular Heartbeat Neurological: Yes Neuropathy Reproductive Disorders: No Genitourinary: Yes (urinary retention) Kidney Stones Gastrointestinal: Yes Irritable Bowel Musculoskeletal: Yes (SCREWS PLACED IN RIGHT ANKLE > 15 YRS AGO) Arthritis, Foot Drop, Gout Endocrine: Yes Diabetes, Non-Insulin dep HEENT: Yes Cataract Loss of Vision: Denies Hearing Impairment: Hard of Hearing Cancer: No Psychosocial: No Integumentary: No Blood Disorders: No Family Medical History Patient reports no known family medical history. No Pertinent Family Hx, Hypertension Physical Exam Vital Signs Vital Signs - First Documented 10/20/22 16:42 Temp 37.0 Pulse 78 Resp 16 B/P (MAP) 137/77 (97) Pulse Ox 96 Capillary Refill : Height, Weight, BMI Height: 5'9.00" Weight: 207lbs. 7.0oz. 94.063206mq; 34.06 BMI Method:Stated General Appearance: No Apparent Distress, WD/WN HEENT: Normal ENT Inspection, Pharynx Normal Neck: Normal Inspection, Non Tender, Supple Respiratory: Chest Non Tender, Lungs Clear, Normal Breath Sounds, No Accessory Muscle Use, No Respiratory Distress Cardiovascular: No Murmur, Normal Peripheral Pulses Gastrointestinal: Normal Bowel Sounds, No Organomegaly, No Pulsatile Mass, Non Tender, Soft Extremity: Normal Capillary Refill, Other (Wound on the extensor surface of the second toe on the left foot that does not appear overtly infected with no surrounding erythema. No purulent drainage.) Neurologic/Psychiatric: Alert, Oriented x3, Normal Mood/Affect Skin: Other (Wound findings as described above) Progress/Results/Core Measures Suspected Sepsis SIRS Temperature: Pulse: Respiratory Rate: Laboratory Tests 10/20/22 16:50: White Blood Count 8.1 Blood Pressure / Mean: Laboratory Tests 10/20/22 16:50: Creatinine 1.63H, Platelet Count 269, Total Bilirubin 0.3 Results/Orders Lab Results Laboratory Tests Test 10/20/22 16:50 Range/Units White Blood Count 8.1 4.3-11.0 10^3/uL Red Blood Count 3.75 L 4.30-5.52 10^6/uL Hemoglobin 11.9 L 13.3-17.7 g/dL Hematocrit 36 L 40-54 % Mean Corpuscular Volume 97 80-99 fL Mean Corpuscular Hemoglobin 32 25-34 pg Mean Corpuscular Hemoglobin Concent 33 32-36 g/dL Red Cell Distribution Width 13.7 10.0-14.5 % Platelet Count 269 130-400 10^3/uL Mean Platelet Volume 9.4 9.0-12.2 fL Immature Granulocyte % (Auto) 0 % Neutrophils (%) (Auto) 61 42-75 % Lymphocytes (%) (Auto) 24 12-44 % Monocytes (%) (Auto) 8 0-12 % Eosinophils (%) (Auto) 6 0-10 % Basophils (%) (Auto) 1 0-10 % Neutrophils # (Auto) 5.0 1.8-7.8 10^3/uL Lymphocytes # (Auto) 1.9 1.0-4.0 10^3/uL Monocytes # (Auto) 0.7 0.0-1.0 10^3/uL Eosinophils # (Auto) 0.5 H 0.0-0.3 10^3/uL Basophils # (Auto) 0.1 0.0-0.1 10^3/uL Immature Granulocyte # (Auto) 0.0 0.0-0.1 10^3/uL Sodium Level 142 135-145 MMOL/L Potassium Level 4.1 3.6-5.0 MMOL/L Chloride Level 110 H 98-107 MMOL/L Carbon Dioxide Level 22 21-32 MMOL/L Anion Gap 10 5-14 MMOL/L Blood Urea Nitrogen 33 H 7-18 MG/DL Creatinine 1.63 H 0.60-1.30 MG/DL Estimat Glomerular Filtration Rate 40 BUN/Creatinine Ratio 20 Glucose Level 199 H 70-105 MG/DL Calcium Level 8.9 8.5-10.1 MG/DL Corrected Calcium 9.2 8.5-10.1 MG/DL Total Bilirubin 0.3 0.1-1.0 MG/DL Aspartate Amino Transf (AST/SGOT) 14 5-34 U/L Alanine Aminotransferase (ALT/SGPT) 15 0-55 U/L Alkaline Phosphatase 56 40-136 U/L Total Protein 6.5 6.4-8.2 GM/DL Albumin 3.6 3.2-4.5 GM/DL My Orders Orders - SANDRO KRAUS DO Comprehensive Metabolic Panel (10/20/22 16:48) Cbc With Automated Diff (10/20/22 16:48) Vital Signs/I&O 10/20/22 16:42 Temp 37.0 Pulse 78 Resp 16 B/P (MAP) 137/77 (97) Pulse Ox 96 Capillary Refill : Departure Communication (Admissions) Patient is hemodynamically stable. He has apparent chest spasms that cause him a hiccup-like reaction with respiration which is what is really bothering him.. He states he had this before with a medication reaction to antibiotics. He does not recall which antibiotics it was previously. His vital signs are normal, no tachycardia or fever. No leukocytosis. He is not anemic. His creatinine is 1.63, only slightly higher than his baseline 1.4-1.5 creatinine. Is likely not contributing to his clinical presentation today. His wound looks good with no evidence of overt infection. We will discharge him home with recommendation to continue the antibiotics and discuss with his doctor about possibly switchin Impression Primary Impression: Shaking Disposition: 01 HOME, SELF-CARE Condition: Stable Departure-Patient Inst. Referrals: MARY HINES MD (PCP/Family) Primary Care Physician Add. Discharge Instructions: Continue to take the antibiotics as prescribed currently. We will talk to wound care to see if they wish to switch you to a different antibiotic for MRSA. Your wound overall looks pretty good at this point. Continue wound care recommendations. All discharge instructions reviewed with patient and/or family. Voiced understanding. SANDRO KRAUS DO Oct 20, 2022 16:52
[2022-10-20 16:55] LABS: BASOPHILS # (AUTO) 0.1 10^3/uL (0.0-0.1); BASOPHILS % (AUTO) 1 % (0-10); EOSINOPHILS # (AUTO) 0.5 10^3/uL (0.0-0.3); EOSINOPHILS % (AUTO) 6 % (0-10); HEMATOCRIT 36 % (40-54); HEMOGLOBIN 11.9 g/dL (13.3-17.7); LYMPHOCYTES # (AUTO) 1.9 10^3/uL (1.0-4.0); LYMPHOCYTES % (AUTO) 24 % (12-44); MEAN CORPUSCULAR HEMOGLOBIN 32 pg (25-34); MEAN CORPUSCULAR HGB CONC 33 g/dL (32-36); MEAN CORPUSCULAR VOLUME 97 fL (80-99); MEAN PLATELET VOLUME 9.4 fL (9.0-12.2); MONOCYTES # (AUTO) 0.7 10^3/uL (0.0-1.0); MONOCYTES % (AUTO) 8 % (0-12); NEUTROPHILS % (AUTO) 61 % (42-75); PLATELET COUNT 269 10^3/uL (130-400); WHITE BLOOD COUNT 8.1 10^3/uL (4.3-11.0)
[2022-10-20 17:08] LABS: ALBUMIN 3.6 GM/DL (3.2-4.5); POTASSIUM 4.1 MMOL/L (3.6-5.0)
[2022-10-20 17:10] LABS: CALCIUM 8.9 MG/DL (8.5-10.1)
[2022-10-20 17:11] LABS: TOTAL PROTEIN 6.5 GM/DL (6.4-8.2)
[2022-10-20 17:13] LABS: BILIRUBIN,TOTAL 0.3 MG/DL (0.1-1.0)
[2022-10-20 17:14] LABS: CREATININE SERUM 1.63 MG/DL (0.60-1.30)
[2022-10-20 17:47] VITALS: BP 137/77
== END 2022-10-20 17:47 | disposition home or self-care (01) ==
LOC: EDUNIT# 16:39 → ER 16:40
DX: R25.1 Tremor, unspecified (principal); G47.30 Sleep apnea, unspecified; Z99.89 Dependence on other enabling machines and devices
CPT/HCPCS: 36415; 80053; 85025

== ENCOUNTER → 2022-10-23 | Outpatient (CLI) | payer MEDICARE, OTHER | LOC: WOUNDCARE 10:21 | PROVIDERS: ATTEND Family Medicine | DX: E11.621 Type 2 diabetes mellitus with foot ulcer (principal); E11.40 Type 2 diabetes mellitus with diabetic neuropathy, unspecified; E11.65 Type 2 diabetes mellitus with hyperglycemia; E11.22 Type 2 diabetes mellitus with diabetic chronic kidney disease; N18.30 Chronic kidney disease, stage 3 unspecified; I70.245 Atherosclerosis of native arteries of left leg with ulceration of other part of foot; D51.3 Other dietary vitamin B12 deficiency anemia; E55.9 Vitamin D deficiency, unspecified; E66.01 Morbid (severe) obesity due to excess calories; Z68.33 Body mass index [BMI] 33.0-33.9, adult; L97.526 Non-pressure chronic ulcer of other part of left foot with bone involvement without evidence of necrosis; E11.52 Type 2 diabetes mellitus with diabetic peripheral angiopathy with gangrene; I96 Gangrene, not elsewhere classified | CPT/HCPCS: 15275; A6212; G0463 ==

== ENCOUNTER 2022-10-28 20:30 | Emergency (ER) | payer MEDICARE, OTHER ==
[~2022-10-28] VITALS: Ht 170 cm; Wt 100.0 kg
[2022-10-28] MEDS ORDERED: KETOROLAC INJ 30 MG/ML VIAL IVP STA (20:37)
[2022-10-28] MEDS ORDERED: ACETAMINOPHEN 500 MG TABLET PO STA (20:37)
[2022-10-28] MEDS ORDERED: LIDOCAINE UROJET 2% GEL 10 ML PKG TOP ONE (20:45)
[2022-10-28 20:46] LABS: BASOPHILS # (AUTO) 0.1 10^3/uL (0.0-0.1); BASOPHILS % (AUTO) 1 % (0-10); EOSINOPHILS # (AUTO) 0.1 10^3/uL (0.0-0.3); EOSINOPHILS % (AUTO) 2 % (0-10); HEMATOCRIT 38 % (40-54); HEMOGLOBIN 12.5 g/dL (13.3-17.7); LYMPHOCYTES # (AUTO) 1.4 10^3/uL (1.0-4.0); LYMPHOCYTES % (AUTO) 16 % (12-44); MEAN CORPUSCULAR HEMOGLOBIN 31 pg (25-34); MEAN CORPUSCULAR HGB CONC 33 g/dL (32-36); MEAN CORPUSCULAR VOLUME 96 fL (80-99); MEAN PLATELET VOLUME 9.8 fL (9.0-12.2); MONOCYTES # (AUTO) 0.6 10^3/uL (0.0-1.0); MONOCYTES % (AUTO) 6 % (0-12); NEUTROPHILS # (AUTO) 6.8 10^3/uL (1.8-7.8); NEUTROPHILS % (AUTO) 75 % (42-75); PLATELET COUNT 263 10^3/uL (130-400)
[2022-10-28] MEDS ORDERED: Sodium Phosphate/Sodium Biphosphate ADULT enema PR ONE (21:00)
[2022-10-28 21:08] LABS: ALBUMIN 3.7 GM/DL (3.2-4.5); BILIRUBIN,TOTAL 0.5 MG/DL (0.1-1.0); CREATININE SERUM 1.77 MG/DL (0.60-1.30); MAGNESIUM 1.9 MG/DL (1.6-2.4); POTASSIUM 3.9 MMOL/L (3.6-5.0)
--- NOTE | 2022-10-28 21:12 | Diagnostic Imaging Report ---
EXAMINATION: CT abdomen and pelvis without contrast. TECHNIQUE: Multiple contiguous axial images were obtained through the abdomen and pelvis without the use of intravenous contrast. All CT scans use one or more of the following dose optimizing techniques: automated exposure control, MA and/or KvP adjustment based on patient size and exam type or iterative reconstruction. HISTORY: Rectal pain. COMPARISON: None available. FINDINGS: Lung bases: Bibasilar dependent atelectasis. Solid organs: The liver is normal. Gallbladder is nonvisualized and may be surgically absent. There is no biliary ductal dilation. Pancreas is normal. Spleen is normal. Adrenal glands are normal. There are bilateral nonobstructing renal calculi measuring up to 0.4 cm. There is no hydronephrosis. There are bilateral renal cysts, one of which on the left demonstrates thin peripheral calcification. Bowel: There is a small hiatal hernia. There is no bowel obstruction. A moderate amount of stool is seen throughout the colon. There is scattered colonic diverticulosis. There is no secondary sign of acute appendicitis. Peritoneum: There is no intraperitoneal free fluid or free air. No suspicious lymphadenopathy. There is trace edema or stranding within the left lower quadrant. Vasculature: Calcification of the aorta without aneurysm. Musculoskeletal: Degenerative changes of the spine without suspicious osseous lesion or compression fracture. Pelvis: The prostate gland is normal. The urinary bladder is normal. IMPRESSION: 1. Trace edema or stranding within the left lower quadrant adjacent to the sigmoid colon which contains numerous diverticula. There is no abnormal wall thickening or evidence of an inflamed diverticula to suggest diverticulitis at this time although very early diverticulitis could potentially have this appearance in the appropriate clinical setting. 2. Moderate stool burden. No bowel obstruction or other acute abnormality in the abdomen or pelvis. Dictated by: Dictated on workstation # [id number]
--- NOTE | 2022-10-28 21:15 | ED GI ---
General Chief Complaint: Rect Problems Stated Complaint: RECTAL PAIN Nursing Triage Note: PT ARRIVED PER EMS, PT CO OF RECTAL PAIN. HAD BM LAST PM. PT HAS LIQUID STOOL IN DIAPER AT THIS X. PT FROM [place]. PT HAS SL IN L FA #[id number] Source of Information: Patient History of Present Illness Date Seen by Provider: Oct 28, 2022 Time Seen by Provider: 20:32 Initial Comments PT ARRIVES VIA EMS FROM VIA [facility] C/O RECTAL PAIN AND NO BM SINCE LAST PM PT HAD MIRALAX AT 1800 TONIGHT WITHOUT RESULTS, SO SENT HERE THEY HAVE NOT TRIED ANYTHING ELSE NO ABDOMINAL PAIN NO NAUSEA/VOMITING NO URINARY SYMPTOMS NO FEVER NO RECTAL BLEEDING PCP: DR. HINES Allergies and Home Medications Allergies Coded Allergies: metformin (Verified Adverse Reaction, Mild, Diarrhea, 08/21/22) Patient Home Medication List Home Medication List Reviewed: Yes Acetaminophen (Tylenol) 325 Mg Tablet, 325 MG PO Q6H PRN for PAIN-MILD (1-4), (Reported) Entered as Reported by: CHONG BANUELOS on 07/09/17 0907 Acetaminophen (Tylenol) 325 Mg Tablet, 325 MG PO QID, (Reported) Entered as Reported by: MANJU REINOSO on 08/21/22 1602 Allopurinol (Allopurinol) 100 Mg Tablet, 100 MG PO BID, (Reported) Entered as Reported by: ELEANOR HILL on 01/01/17 1654 Amlodipine Besylate (Amlodipine Besylate) 5 Mg Tablet, 5 MG PO BID, (Reported) Entered as Reported by: CHONG BANUELOS on 08/21/18 1256 Amoxicillin/Potassium Clav (Amox Tr-K Clv 875-125 mg Tab) 875 Mg-125 Mg Tablet, 1 EA PO BID, (Reported) Entered as Reported by: MANJU REINOSO on 08/21/22 1602 Aspirin (Aspirin EC) 81 Mg Tablet.dr, 81 MG PO DAILY, (Reported) Entered as Reported by: ELEANOR HILL on 01/01/17 1654 Cetirizine HCl (Cetirizine HCl) 10 Mg Tablet, 10 MG PO DAILY, (Reported) Entered as Reported by: MANJU REINOSO on 08/21/22 1602 Cholecalciferol (Vitamin D3) (Vitamin D3) 25 Mcg (1000 Unit) Tablet, 25 MCG PO DAILY, (Reported) Entered as Reported by: MANJU REINOSO on 08/21/22 160 Clopidogrel Bisulfate (Clopidogrel) 75 Mg Tablet, 75 MG PO DAILY, (Reported) Entered as Reported by: CHONG BANUELOS on 07/09/17 0907 Cyanocobalamin (Vitamin B-12) (Vitamin B-12) 1,000 Mcg Tablet, 1,000 MCG PO DAILY, (Reported) Entered as Reported by: MANJU REINOSO on 08/21/22 160 Escitalopram Oxalate (Escitalopram Oxalate) 5 Mg Tablet, 5 MG PO HS, (Reported) Entered as Reported by: MANJU REINOSO on 08/21/22 160 Famotidine (Famotidine) 20 Mg Tablet, 20 MG PO DAILY, (Reported) Entered as Reported by: MANJU REINOSO on 08/21/22 160 Finasteride (Finasteride) 5 Mg Tablet, 5 MG PO DAILY, (Reported) Entered as Reported by: BRIAN FLETCHER on 01/01/17 1008 Furosemide (Furosemide) 20 Mg Tablet, 20 MG PO DAILY, (Reported) Entered as Reported by: MANJU REINOSO on 08/21/22 160 Gabapentin (Gabapentin) 100 Mg Capsule, 200 MG PO HS, (Reported) Entered as Reported by: MANJU REINOSO on 08/21/22 160 Glimepiride (Glimepiride) 4 Mg Tablet, 4 MG PO DAILY, (Reported) Entered as Reported by: ELEANOR HILL on 01/01/17 1654 Guaifenesin (Mucinex) 600 Mg Tab.er.12h, 600 MG PO Q12H PRN for COUGH, (Reported) Entered as Reported by: MANJU REINOSO on 08/21/22 160 Guaifenesin (Guaifenesin) 100 Mg/5 Ml Liquid, 5 ML PO Q4H PRN for COUGH, (Reported) Entered as Reported by: MANJU REINOSO on 08/21/22 160 Insulin Glargine,Hum.rec.anlog (Lantus Solostar) 100 Unit/Ml (3 Ml) Insuln.pen, 17 UNITS SC HS, (Reported) Entered as Reported by: MANJU REINOSO on 08/21/22 160 Lactobacillus Acidophilus (Acidophilus) 1 Each Capsule, 1 EACH PO BID, (Reported) Entered as Reported by: MANJU REINOSO on 08/21/22 160 Loperamide HCl (Imodium A-D) 2 Mg Capsule, 2-4 MG PO UD PRN for DIARRHEA, (Reported) Entered as Reported by: MANJU REINOSO on 08/21/22 160 Losartan Potassium (Losartan Potassium) 25 Mg Tablet, 25 MG PO DAILY, (Reported) Entered as Reported by: MANJU REINOSO on 08/21/22 160 Menthol (Cough Drops) 5.8 Mg Lozenge, 5.8 MG MM EVERY 2 HOURS PRN for COUGH, (Reported) Entered as Reported by: MANJU REINOSO on 08/21/22 160 Nystatin (Nystatin) 100,000 Unit/Gram Cream..g., 1 APPLIC TOP QID, (Reported) Entered as Reported by: MANJU REINOSO on 08/21/22 160 Polyethylene Glycol 3350 (Miralax) 17 Gram Powd.pack, 8.5 GM PO DAILY PRN for CONSTIPATION-2ND LINE, (Reported) Entered as Reported by: MANJU REINOSO on 08/21/22 160 Tamsulosin HCl (Flomax) 0.4 Mg Cap, 0.4 MG PO DAILY, (Reported) Entered as Reported by: CHONG BANUELOS on 08/21/18 1256 Timolol Maleate (Timolol Maleate 0.5%) 0.5 % Drops, 1 APPLIC TOP Q48H, (Reported ) Entered as Reported by: MANJU REINOSO on 08/21/22 160 Review of Systems Review of Systems Constitutional: no symptoms reported Gastrointestinal: See HPI Genitourinary: No Symptoms Reported Past Cahuvqf-Plxrrj-Bvetzg Hx Patient Social History Tobacco Use?: No Substance use?: No Alcohol Use?: No Pt feels they are or have been: No Immunizations Up To Date Tetanus Booster (TDap): Unknown First/Initial COVID19 Vaccinat: YES Second COVID19 Vaccination David: YES Seasonal Allergies Seasonal Allergies: No Past Medical History Surgery/Hospitalization HX: PMH: DM-HYPERGLYCEMIA, DM- NEUROPATHY, DIABETIC ULCER, LYPHEDEMA, B12 DEFICIEENCY, DEPRESSION, HTN, CAD, OSTEOARTHRITIS, GOUT, CHRONIC KIDNEY DISEASE, BPH, Surgeries: Yes (R foot screw, ) Appendectomy, Coronary Stent, Gallbladder, Orthopedic, Pacemaker, Tonsillectomy Respiratory: Yes Sleep Apnea Currently Using CPAP: Yes Cardiac: Yes (pacemaker) Atrial Fibrillation, Coronary Artery Disease, High Cholesterol, Hypertension, Irregular Heartbeat Neurological: Yes Neuropathy Reproductive Disorders: No Genitourinary: Yes (urinary retention) Kidney Stones Gastrointestinal: Yes Irritable Bowel Musculoskeletal: Yes (SCREWS PLACED IN RIGHT ANKLE > 15 YRS AGO) Arthritis, Foot Drop, Gout Endocrine: Yes Diabetes, Non-Insulin dep HEENT: Yes Cataract Loss of Vision: Denies Hearing Impairment: Hard of Hearing Cancer: No Psychosocial: No Integumentary: No Blood Disorders: No Family Medical History Patient reports no known family medical history. No Pertinent Family Hx, Hypertension Physical Exam Vital Signs Vital Signs - First Documented 10/28/22 20:30 Temp 36.9 Pulse 86 Resp 18 B/P (MAP) 109/59 (76) Pulse Ox 92 O2 Delivery Room Air Capillary Refill : Less Than 3 Seconds Height/Weight/BMI Height: 5'9.00" Weight: 207lbs. 7.0oz. [id number]; 34.00 BMI Method:Stated General Appearance: WD/WN, no apparent distress, obese, other (LAYING ON RIGHT SIDE--HURTS HIS RECTAL AREA TO LAY ON HIS BACK) Respiratory: normal breath sounds Cardiovascular: regular rate, rhythm Gastrointestinal: non tender, soft Rectal: other (PAIN WITH EXAM. SMALL AMOUNT OF LIQUID STOOL AROUND RECTUM. NO HEMORRHOIDS OR EVIDENCE OF ABSCESS. NO BLEEDING. THERE IS LARGE AMOUNT OF SOFT STOOL IN RECTUM. ) Progress/Results/Core Measures Results/Orders Lab Results Laboratory Tests Test 10/28/22 20:36 Range/Units White Blood Count 9.0 4.3-11.0 10^3/uL Red Blood Count 3.99 L 4.30-5.52 10^6/uL Hemoglobin 12.5 L 13.3-17.7 g/dL Hematocrit 38 L 40-54 % Mean Corpuscular Volume 96 80-99 fL Mean Corpuscular Hemoglobin 31 25-34 pg Mean Corpuscular Hemoglobin Concent 33 32-36 g/dL Red Cell Distribution Width 13.8 10.0-14.5 % Platelet Count 263 130-400 10^3/uL Mean Platelet Volume 9.8 9.0-12.2 fL Immature Granulocyte % (Auto) 0 % Neutrophils (%) (Auto) 75 42-75 % Lymphocytes (%) (Auto) 16 12-44 % Monocytes (%) (Auto) 6 0-12 % Eosinophils (%) (Auto) 2 0-10 % Basophils (%) (Auto) 1 0-10 % Neutrophils # (Auto) 6.8 1.8-7.8 10^3/uL Lymphocytes # (Auto) 1.4 1.0-4.0 10^3/uL Monocytes # (Auto) 0.6 0.0-1.0 10^3/uL Eosinophils # (Auto) 0.1 0.0-0.3 10^3/uL Basophils # (Auto) 0.1 0.0-0.1 10^3/uL Immature Granulocyte # (Auto) 0.0 0.0-0.1 10^3/uL Sodium Level 138 135-145 MMOL/L Potassium Level 3.9 3.6-5.0 MMOL/L Chloride Level 106 98-107 MMOL/L Carbon Dioxide Level 17 L 21-32 MMOL/L Anion Gap 15 H 5-14 MMOL/L Blood Urea Nitrogen 38 H 7-18 MG/DL Creatinine 1.77 H 0.60-1.30 MG/DL Estimat Glomerular Filtration Rate 36 BUN/Creatinine Ratio 21 Glucose Level 249 H 70-105 MG/DL Calcium Level 9.0 8.5-10.1 MG/DL Corrected Calcium 9.2 8.5-10.1 MG/DL Magnesium Level 1.9 1.6-2.4 MG/DL Total Bilirubin 0.5 0.1-1.0 MG/DL Aspartate Amino Transf (AST/SGOT) 15 5-34 U/L Alanine Aminotransferase (ALT/SGPT) 16 0-55 U/L Alkaline Phosphatase 61 40-136 U/L Total Protein 7.0 6.4-8.2 GM/DL Albumin 3.7 3.2-4.5 GM/DL My Orders Orders - JONAH PEREZ DO Ed Iv/Invasive Line Start (10/28/22 20:37) Monitor-Rhythm Ecg Trace Only (10/28/22 20:37) Cbc With Automated Diff (10/28/22 20:37) Comprehensive Metabolic Panel (10/28/22 20:37) Magnesium (10/28/22 20:37) Ct Abdomen/Pelvis Wo (10/28/22 20:37) Acetaminophen Tablet (Acetaminophen Ta (10/28/22 20:37) Ketorolac Injection (Toradol Injection) (10/28/22 20:37) Lidocaine 2% (Urojet) (Xylocaine Urojet) (10/28/22 20:45) Na Phos/Na Biphos Enema (Fleet Enema Julio César (10/28/22 21:00) Medications Given in ED Vital Signs/I&O 10/28/22 10/28/22 20:30 22:03 Temp 36.9 Pulse 86 79 Resp 18 20 B/P (MAP) 109/59 (76) 127/64 Pulse Ox 92 95 O2 Delivery Room Air Room Air Blood Pressure Mean: 76 Progress Progress Note : Progress Note LABS INCLUDING CBC AND CMP UNREMARKABLE--NORMAL FOR PT . CR 1.77 IS NORMAL BASELINE FOR PT, AND GLUCOSE ELEVATION IS NOT UNUSUAL FOR PT VISCOUS LIDOCAINE INSTILLED IN RECTUM FLEET'S ENEMA ORDERED BUT DID NOT RETAIN MANUAL DIS-IMPACTION OF SOFT STOOL BY RN WITH IMMEDIATE RELIEF PT THEN HAD A LARGE BM ON HIS OWN PRIOR TO DISMISSAL Diagnostic Imaging Comments CT ABDOMEN/PELVIS--PER RADIOLOGIST REPORT AT 2113 COMPARISON: None available. FINDINGS: Lung bases: Bibasilar dependent atelectasis. Solid organs: The liver is normal. Gallbladder is nonvisualized and may be surgically absent. There is no biliary ductal dilation. Pancreas is normal. Spleen is normal. Adrenal glands are normal. There are bilateral nonobstructing renal calculi measuring up to 0.4 cm. There is no hydronephrosis. There are bilateral renal cysts, one of which on the left demonstrates thin peripheral calcification. Bowel: There is a small hiatal hernia. There is no bowel obstruction. A moderate amount of stool is seen throughout the colon. There is scattered colonic diverticulosis. There is no secondary sign of acute appendicitis. Peritoneum: There is no intraperitoneal free fluid or free air. No suspicious lymphadenopathy. There is trace edema or stranding within the left lower quadrant. Vasculature: Calcification of the aorta without aneurysm. Musculoskeletal: Degenerative changes of the spine without suspicious osseous lesion or compression fracture. Pelvis: The prostate gland is normal. The urinary bladder is normal. IMPRESSION: 1. Trace edema or stranding within the left lower quadrant adjacent to the sigmoid colon which contains numerous diverticula. There is no abnormal wall thickening or evidence of an inflamed diverticula to suggest diverticulitis at this time although very early diverticulitis could potentially have this appearance in the appropriate clinical setting. 2. Moderate stool burden. No bowel obstruction or other acute abnormality in the abdomen or pelvis. Reviewed: Reviewed by Me Departure Impression Primary Impression: Impacted stool in rectum Additional Impression: Constipation Disposition: 03 XFER [facility] Condition: Improved Departure-Patient Inst. Decision time for Depature: 21:18 Referrals: MARY HINES MD (PCP/Family) Primary Care Physician Patient Instructions: Fecal Impaction (DC) Add. Discharge Instructions: TAKE MIRALAX DAILY CONTINUE YOUR REGULAR MEDICATIONS PRESCRIBED FOLLOW UP WITH YOUR DR NEEDED All discharge instructions reviewed with patient and/or family. Voiced understanding. JONAH PEREZ DO Oct 28, 2022 21:15
[2022-10-28 22:03] VITALS: BP 127/64
== END 2022-10-28 22:03 ==
LOC: EDUNIT# 20:33 → ER 20:34
DX: K56.41 Fecal impaction (principal); G47.30 Sleep apnea, unspecified; Z99.89 Dependence on other enabling machines and devices
CPT/HCPCS: 36415; 74176; 80053; 83735; 85025; 93041

== ENCOUNTER → 2022-10-30 | Outpatient (CLI) | payer MEDICARE, OTHER | LOC: WOUNDCARE 09:40 | PROVIDERS: ATTEND Family Medicine | DX: E11.621 Type 2 diabetes mellitus with foot ulcer (principal); E11.65 Type 2 diabetes mellitus with hyperglycemia; E11.40 Type 2 diabetes mellitus with diabetic neuropathy, unspecified; E11.22 Type 2 diabetes mellitus with diabetic chronic kidney disease; N18.30 Chronic kidney disease, stage 3 unspecified; I70.244 Atherosclerosis of native arteries of left leg with ulceration of heel and midfoot; D51.8 Other vitamin B12 deficiency anemias; E55.9 Vitamin D deficiency, unspecified; E66.01 Morbid (severe) obesity due to excess calories; I89.0 Lymphedema, not elsewhere classified; L97.526 Non-pressure chronic ulcer of other part of left foot with bone involvement without evidence of necrosis; E11.52 Type 2 diabetes mellitus with diabetic peripheral angiopathy with gangrene; Z68.33 Body mass index [BMI] 33.0-33.9, adult | CPT/HCPCS: 15275; G0463 ==

== ENCOUNTER → 2022-11-06 | Outpatient (CLI) | payer MEDICARE, OTHER | LOC: WOUNDCARE 09:49 | PROVIDERS: ATTEND Family Medicine | DX: E11.621 Type 2 diabetes mellitus with foot ulcer (principal); E11.65 Type 2 diabetes mellitus with hyperglycemia; E11.40 Type 2 diabetes mellitus with diabetic neuropathy, unspecified; I70.245 Atherosclerosis of native arteries of left leg with ulceration of other part of foot; E11.22 Type 2 diabetes mellitus with diabetic chronic kidney disease; N18.30 Chronic kidney disease, stage 3 unspecified; D51.8 Other vitamin B12 deficiency anemias; E55.9 Vitamin D deficiency, unspecified; E66.01 Morbid (severe) obesity due to excess calories; I89.0 Lymphedema, not elsewhere classified; L97.526 Non-pressure chronic ulcer of other part of left foot with bone involvement without evidence of necrosis; E11.52 Type 2 diabetes mellitus with diabetic peripheral angiopathy with gangrene; Z68.33 Body mass index [BMI] 33.0-33.9, adult | CPT/HCPCS: 15275; G0463 ==

== ENCOUNTER → 2022-11-13 | Outpatient (CLI) | payer MEDICARE, OTHER | LOC: WOUNDCARE 10:00 | PROVIDERS: ATTEND Family Medicine | DX: E11.621 Type 2 diabetes mellitus with foot ulcer (principal); E11.65 Type 2 diabetes mellitus with hyperglycemia; E11.40 Type 2 diabetes mellitus with diabetic neuropathy, unspecified; I70.245 Atherosclerosis of native arteries of left leg with ulceration of other part of foot; E11.22 Type 2 diabetes mellitus with diabetic chronic kidney disease; N18.30 Chronic kidney disease, stage 3 unspecified; E55.9 Vitamin D deficiency, unspecified; E66.01 Morbid (severe) obesity due to excess calories; I89.0 Lymphedema, not elsewhere classified; L97.526 Non-pressure chronic ulcer of other part of left foot with bone involvement without evidence of necrosis; Z68.33 Body mass index [BMI] 33.0-33.9, adult | CPT/HCPCS: 15275; 83036; G0463; 36415 ==

== ENCOUNTER → 2022-11-20 | Outpatient (CLI) | payer MEDICARE, OTHER | LOC: WOUNDCARE 09:46 | PROVIDERS: ATTEND Family Medicine | DX: I96 Gangrene, not elsewhere classified (principal); I70.245 Atherosclerosis of native arteries of left leg with ulceration of other part of foot; L97.526 Non-pressure chronic ulcer of other part of left foot with bone involvement without evidence of necrosis; E11.65 Type 2 diabetes mellitus with hyperglycemia; E11.621 Type 2 diabetes mellitus with foot ulcer; E11.40 Type 2 diabetes mellitus with diabetic neuropathy, unspecified; N18.30 Chronic kidney disease, stage 3 unspecified; D51.8 Other vitamin B12 deficiency anemias; E55.9 Vitamin D deficiency, unspecified; E66.01 Morbid (severe) obesity due to excess calories; I89.0 Lymphedema, not elsewhere classified; Z68.33 Body mass index [BMI] 33.0-33.9, adult | CPT/HCPCS: 15275; G0463 ==

== ENCOUNTER → 2022-11-27 | Outpatient (CLI) | payer MEDICARE, OTHER | LOC: WOUNDCARE 09:35 | PROVIDERS: ATTEND Family Medicine | DX: E11.621 Type 2 diabetes mellitus with foot ulcer (principal); E11.40 Type 2 diabetes mellitus with diabetic neuropathy, unspecified; E11.65 Type 2 diabetes mellitus with hyperglycemia; E11.22 Type 2 diabetes mellitus with diabetic chronic kidney disease; N18.30 Chronic kidney disease, stage 3 unspecified; E55.9 Vitamin D deficiency, unspecified; E66.01 Morbid (severe) obesity due to excess calories; Z68.33 Body mass index [BMI] 33.0-33.9, adult; I89.0 Lymphedema, not elsewhere classified; I70.245 Atherosclerosis of native arteries of left leg with ulceration of other part of foot; D51.3 Other dietary vitamin B12 deficiency anemia; L97.526 Non-pressure chronic ulcer of other part of left foot with bone involvement without evidence of necrosis | CPT/HCPCS: 11042; A6021; G0463 ==

== ENCOUNTER → 2022-12-04 | Outpatient (CLI) | payer MEDICARE, OTHER | LOC: WOUNDCARE 09:32 | PROVIDERS: ATTEND Family Medicine | DX: E11.621 Type 2 diabetes mellitus with foot ulcer (principal); E11.40 Type 2 diabetes mellitus with diabetic neuropathy, unspecified; E11.65 Type 2 diabetes mellitus with hyperglycemia; I70.245 Atherosclerosis of native arteries of left leg with ulceration of other part of foot; E11.22 Type 2 diabetes mellitus with diabetic chronic kidney disease; N18.30 Chronic kidney disease, stage 3 unspecified; E55.9 Vitamin D deficiency, unspecified; D51.8 Other vitamin B12 deficiency anemias; E66.01 Morbid (severe) obesity due to excess calories; Z68.33 Body mass index [BMI] 33.0-33.9, adult; I89.0 Lymphedema, not elsewhere classified; L97.526 Non-pressure chronic ulcer of other part of left foot with bone involvement without evidence of necrosis | CPT/HCPCS: 15275; G0463 ==

== ENCOUNTER → 2022-12-11 | Outpatient (CLI) | payer MEDICARE, OTHER | LOC: WOUNDCARE 09:43 | PROVIDERS: ATTEND Family Medicine | DX: E11.621 Type 2 diabetes mellitus with foot ulcer (principal); E11.65 Type 2 diabetes mellitus with hyperglycemia; E11.40 Type 2 diabetes mellitus with diabetic neuropathy, unspecified; I70.245 Atherosclerosis of native arteries of left leg with ulceration of other part of foot; E11.22 Type 2 diabetes mellitus with diabetic chronic kidney disease; N18.30 Chronic kidney disease, stage 3 unspecified; D51.8 Other vitamin B12 deficiency anemias; E55.9 Vitamin D deficiency, unspecified; E66.01 Morbid (severe) obesity due to excess calories; I89.0 Lymphedema, not elsewhere classified; L97.526 Non-pressure chronic ulcer of other part of left foot with bone involvement without evidence of necrosis; Z68.33 Body mass index [BMI] 33.0-33.9, adult | CPT/HCPCS: 99213 ==